=== PATIENT | female | born 1990 | race Two or more races ===

== ENCOUNTER 2023-09-16 07:25 | Outpatient (OUT) | payer OTHER, SELFPAY ==
[2023-09-16 07:59] LABS: Basophils Percent Auto 0.5 % (0.2-2.0); Eosinophils Percent Auto 0.3 % (0.9-7.0); Hematocrit 37.2 % (36.0-48.0); Hemoglobin 12.2 g/dL (12.0-16.0); Immature Granulocytes Abs Auto 0.04 10^3/uL (0.00-0.03); Immature Granulocytes Pct Auto 0.6 % (0.0-0.5); Lymphocytes Absolute Auto 1.9 10^3/uL (1.2-3.8); Lymphocytes Percent Auto 28.1 % (20.5-60.0); Mean Corpuscular HGB Conc 32.8 g/dL (29.9-35.2); Mean Corpuscular Hemoglobin 28.9 pg (26.7-34.0); Mean Corpuscular Volume 88.2 fL (81.0-99.0); Mean Platelet Volume 8.9 fL (9.5-13.5); Monocytes Absolute Auto 0.5 10^3/uL (0.3-0.8); Monocytes Percent Auto 7.7 % (1.7-12.0); Neutrophils Absolute Auto 4.2 10^3/uL (1.4-6.5); Neutrophils Percent Auto 62.8 % (43.0-75.0); Platelet Count 308 10^3/uL (150-450); Red Blood Count 4.22 10^6/uL (4.20-5.40); Red Cell Distribution Width 13.1 % (11.0-15.0); White Blood Count 6.6 10^3/uL (4.0-11.0)
[2023-09-16 08:12] LABS: Estimated Average Glucose 111 mg/dL; Glycohemoglobin A1C 5.5 % (4.5-6.2)
[2023-09-16 08:57] LABS: Alanine Aminotransferase 49 U/L (14-59); Albumin Globulin Ratio 0.9; Albumin Level 3.5 g/dL (3.4-5.0); Alkaline Phosphatase 70 U/L (46-116); Aspartate Amino Transferase 24 U/L (15-37); BUN Creatinine Ratio 15.9; Bilirubin Total 0.3 mg/dL (0.2-1.0); Calcium 9.1 mg/dL (8.5-10.1); Carbon Dioxide 25.9 mmol/L (21.0-32.0); Chloride 106 mmol/L (98-107); Chol HDL Ratio 3.9; Cholesterol 171 mg/dL (<=200); Estimated GFR (African America >60 (>=60); Estimated GFR (Non-African Ame >60 (>=60); Free T3 2.59 pg/mL (2.18-3.98); Globulin 3.7 g/dL; Glucose 95 mg/dL (74-106); HDL Cholesterol 44 mg/dL (40-60); LDL Cholesterol Calculated 114.2 mg/dL; Potassium 3.9 mmol/L (3.5-5.1); Sodium 141 mmol/L (136-145); Total Protein 7.2 g/dL (6.4-8.2); Triglycerides 64 mg/dL (<=150); VLDL CHOLESTEROL 12.8 mg/dL
[2023-09-17 12:10] LABS: Insulin 20.6 uIU/mL (2.6-24.9)
== END 2023-09-16 07:26 | disposition home or self-care (01) ==
LOC: LAB 07:27
PROVIDERS: PCP Family Medicine; Visit Provider Family Medicine
DX: Z00.00 Encounter for general adult medical examination without abnormal findings (principal); E78.5 Hyperlipidemia, unspecified; R73.09 Other abnormal glucose; D64.9 Anemia, unspecified
CPT/HCPCS: 36415; 80053; 80061; 83036; 83525; 83540; 84436; 84443; 84481; 85025

== ENCOUNTER 2024-03-09 16:14 | Outpatient (OUT) | payer OTHER, SELFPAY | END 2024-03-09 16:15 | disposition home or self-care (01) | LOC: MN 16:15 | PROVIDERS: PCP Family Medicine | DX: Z71.3 Dietary counseling and surveillance (principal); E66.9 Obesity, unspecified | CPT/HCPCS: 97802 ==

== ENCOUNTER 2024-03-21 08:11 | Outpatient (OUT) | payer OTHER, SELFPAY ==
--- NOTE | 2024-03-21 | PCN_ITS ---
CARDIAC STRESS TEST Requesting Physician: Bryan Zamorano M.D. Procedure Date: 03/21/2024 TREADMILL STRESS TEST INDICATIONS: Chest pain and left arm tingling. The test was explained to the patient and she is agreeable to proceed. Resting heart rate 58 beats per minute. Resting blood pressure 118/64. Peak heart rate 169 beats per minute, representing 89% of age predicted maximum heart rate. Max blood pressure 128/66 mm/Hg. The patient walked on treadmill according to standard Billy protocol for 8 minutes and 29 seconds, consistent with 10.10 METS. Exercise was terminated secondary to achievement of target heart rate. Patient experienced chest pain and dyspnea at peak exercise, which resolved in recovery phase. Resting EKG showed sinus rhythm, heart rate 72 beats per minute, normal EKG. EKG during exercise, at peak exercise and during recovery phase did not show significant T or ST changes and no arrhythmias. CONCLUSION: 1. Maximum stress test, achieving 89% of age predicted maximum heart rate. 2. Good exercise tolerance. 3. Appropriate heart rate and blood pressure response to exercise. 4. This stress test is negative for exercise induced ischemic EKG changes or arrhythmias; however, patient had chest pain and dyspnea at peak exercise that resolved in recovery. MTDD
--- OUTSIDE RECORDS SUMMARY | 2024-03-21 08:31 | XMS_ITS | CCD ---
Author Organization [facility] CliniSynj Care Team Providers Care Form Drafter Name Role Phone Nguyen Zamorano Primary Care Physician RO ., DR CEDILLO Primary Care Unavailable NILL ., DR FONTENOT Admitting Unavailable NILL ., DR FONTENOT Attending Unavailable NILL ., DR FONTENOT Admitting Unavailable HOY ., DR CEDILLO Primary Care Unavailable NILL ., DR FONTENOT Attending Unavailable NILL ., DR FONTENOT Consulting Unavailable LOLITA II, LALO Consulting Unavailable ZACHARY ARELLANO Consulting Unavailable HOY ., DR CEDILLO Primary Care Unavailable NILL ., DR FONTENOT Admitting Unavailable NILL ., DR FONTENOT Attending Unavailable NILL ., DR FONTENOT Consulting Unavailable RHONA HONG Consulting Unavailable LOLITA II, LALO Consulting Unavailable HOY ., DR CEDILLO Consulting Unavailable HOY ., DR CEDILLO Primary Care Unavailable HOY ., DR NGUYEN Fergusonitting Unavailable HOY ., DR CEDILLO Attending Unavailable RASTEGAR, SCOTTY Consulting Unavailable NILL ., DR FONTENOT Admitting Unavailable ZIEBER, DR VERONICA Mackey Consulting Unavailable HOY ., DR CEDILLO Primary Care Unavailable NILL ., DR FONTENOT Attending Unavailable NILL ., DR FONTENOT Consulting Unavailable NILL ., DR FONTENOT Admitting Unavailable HOY ., DR CEDILLO Primary Care Unavailable NILL ., DR FONTENOT Attending Unavailable NILL ., DR FONTENOT Consulting Unavailable HAY ., DR HENNING Attending Unavailable GRECHNY .TIMOTHY Consulting Unavailabl e HAY ., DR HENNING Admitting Unavailable HOY ., DR CEDILLO Primary Care Unavailable HAY ., DR HENNING Consulting Unavailable LIZBETH CARRILLO Consulting Unavailable NILLPo Attending Unavailable NILL, Po R Attending Unavailable NILL, Po R Attending Unavailable NILL, Po R Attending Unavailable NILL, Po R Attending Unavailable NATANDREA MCNAIR Attending Unavailable Allergies Allergy Classification Reported Allergen(s) Allergy Type Date of Onset Reaction(s) Facility (1 source) No Known Medication Allergies; Translations: [No Known Medication Allergies] Propensity to adverse reactions (disorder) [facility] Repository Medications Current Medications Medication Drug Class(es) Dates Sig (Normalized) Sig (Original) esomeprazole 40 mg delayed release oral capsule (2 sources) Proton Pump Inhibitor Start: 10-08-2022 take 1 capsule by mouth once daily Nexium 40 mg Cap-EC 40 mg = 1 cap(s), Oral, Daily, # 90 cap(s), Refills(s) 1, Pharmacy: [facility]/pharmacy #[id number], 157.4, cm, 09/26/22 10:43:00 EDT, Height/Length Dosing, 91.7, kg, 09/26/22 10:43:00 EDT, Weight Dosing Start Date: 10/08/22 Status: Ordered hyoscyamine sulfate 0.125 mg disintegrating oral tablet (3 sources) Start: 09-26-2022 take 1 tablet by mouth four times daily hyoscyamine 0.125 mg oral tablet, disintegrating 0.125 mg = 1 tab(s), Oral, QID, Refills(s) 0 Start Date: 09/26/22 Status: Ordered nabumetone 500 mg oral tablet (3 sources) Nonsteroidal Anti-inflammatory Drug Start: 09-26-2022 take 2 tablets by mouth once daily nabumetone 500 mg Tab 1,000 mg = 2 tab(s), Oral, Daily, Refills(s) 0 Start Date: 09/26/22 Status: Ordered sucralfate 100 mg/ml oral suspension (2 sources) Aluminum Complex Start: 10-08-2022 Carafate 1 g/10 mL Susp-Oral 1 gm = 10 mL, Oral, QIDACHS, Refills(s) 0 Start Date: 10/08/22 Status: Ordered Problems Problem Classification Problem Date Documented Date Episodic/Chronic Abdominal hernia (3 sources) Diaphragmatic hernia; Translations: [Diaphragmatic hernia without obstruction or gangrene] Onset: 10-07-2022 Episodic Abdominal pain (20 sources) Right upper quadrant pain; Translations: [Right upper quadrant pain] Onset: 09-08-2022 Episodic Allergic reactions (3 sources) Eczema 09-22-2022 Episodic Biliary tract disease (12 sources) Biliary calculus; Translations: [Cholelithiasis without obstruction] Onset: 09-11-2022 09-22-2022 Episodic Esophageal disorders (3 sources) Gastroesophageal reflux disease with hiatal hernia; Translations: [Gastro-esophageal reflux disease without esophagitis] Onset: 10-07-2022 10-08-2022 Chronic Gastritis and duodenitis (1 source) Unspecified chronic gastritis without bleeding; Translations: [UNS CHRONIC GASTRITIS W/O BLEEDING] Onset: 10-07-2022 Chronic Gastritis and duodenitis (3 sources) Gastritis; Translations: [Other gastritis without bleeding] Onset: 10-08-2022 Episodic Nausea and vomiting (5 sources) Nausea and vomiting; Translations: [Nausea with vomiting, unspecified] Onset: 09-26-2022 Episodic Other nutritional; endocrine; and metabolic disorders (3 sources) Body mass index 30+ - obesity 09-26-2022 Chronic Ovarian cyst (3 sources) Cyst of ovary 09-22-2022 Episodic Results Test Name Value Interpretation Reference Range Facility General Surgery Office/Clini c Noteon 12-01-2022 General Surgery Office/Clinic Note Chief Complaint post operative follow up HPI Staff 14 day post operative follow up post lap cholecystectomy. Denies pain, no use of pain medication. Denies bleeding or drainage. History of Present Illness 2 weeks s/p LS cholecystectomy; doing well, denies pain, no N/V, normal bms, no drainage from incisions; pathology with chronic cholecystitis, numerous small stones in gallbladder. Review of Systems ROS - Provider Constitutional: no fever, no sweats, no weight loss. Eyes: no glasses, no blurred vision, no visual loss. ENMT: no dentures, no hoarseness, no swallowing difficulties, no hearing loss, no ear infection(s), no nose bleeds. Cardiovascular: normal blood pressure, no chest pain, regular heartbeat, no heart murmur. Respiratory: no shortness of breath, no cough, no asthma, no wheezing. Gastrointestinal: no nausea, no vomiting, no diarrhea, no constipation, no blood in stool, no change in bowel habits, no abdominal pain, no hepatitis. Genitourinary: no kidney stones, no urine infection, no dysuria. Musculoskeletal: no pain, no weakness. Skin: no changing moles, no rash, no skin lumps. Neurologic: no seizures, no epilepsy, no headache. Psychiatric: no emotional or psychiatric problem. Heme/Lymph: no bleeding problems, no anemia, no blood clots, no transfusions. Allergy/Immunologic: no swollen lymph nodes/glands, no IV drug abuse. Other: Additional ROS info: Except as noted in the above Review of Systems and in the History of Present Illness, all other systems have been reviewed and are negative or noncontributory. Physical Exam abd: soft, nontender, nondistended, incisions healing well, no erythema or drainage, minimal resolving ecchymosis infraumbilical. Assessment/Plan 1. Chronic cholecystitis with calculus (K80.10: Calculus of gallbladder with chronic cholecystitis without obstruction) doing well, continue no lifting > 10 lbs for 2 weeks, then resume regular activities; call with problems/questions. Follow-up With When Contact Information NIKOLAI HENRY, KASIA Hill Only if needed [address] [place] [address]- Additional Instructions: Problem List/Past Medical History Ongoing Bile reflux gastritis BMI 37.0-37.9, adult Cholelithiasis Chronic cholecystitis with calculus Eczema Hiatal hernia with GERD Left ovarian cyst Nausea and vomiting Right sided abdominal pain Rt flank pain Symptomatic cholelithiasis Historical No qualifying data Procedure/Surgical History Laparoscopic cholecystectomy (10/29/2022), EGD - Esophagogastroduodenoscopy (10/01/2022). Medications Carafate 1 g/10 mL Susp-Oral, 1 gm= 10 mL, Oral, QIDACHS hyoscyamine 0.125 mg oral tablet, disintegrating, 0.125 mg= 1 tab(s), Oral, QID nabumetone 500 mg Tab, 1000 mg= 2 tab(s), Oral, Daily Nexium 40 mg Cap-EC, 40 mg= 1 cap(s), Oral, Daily, 1 refills Allergies No Known Allergies No Known Medication Allergies Social History Alcohol Current, Beer, Wine, Liquor, 1-2 times per month, 09/26/2022 Substance Abuse - Denies Substance Abuse, 09/26/2022 Tobacco Never (less than 100 in lifetime) Tobacco Use:. Never Smokeless Tobacco Use:., 09/26/2022 Family History Family history is negative Immunizations Vaccine Date Status Comments influenza virus vaccine, inactivated - Not Given Patient Refuses SARS-CoV-2 (COVID-19) mRNA BNT-162b2 vax 08/03/2020 Recorded SARS-CoV-2 (COVID-19) mRNA BNT-162b2 vax 07/13/2020 Recorded Normal [facility] Comment on above: Result Comment: Electronically Signed By : NIKOLAI HENRY, Po Mackey\.br\Date and Time Signed: 12/01/22 13:04 EDT Ambulatory Visit Summaryon 0 11-12-2022 Ambulatory Visit Summary FRANKLIN MOROCHO :1990 Visit Date:11/12/2022 Ambulatory Visit Instructions Your Care Team Attending Physician - NIKOLAI HENRY, Po Mackey Primary Care Physician - Nguyen Zamorano MD This Is Your Medications List esomeprazole (Nexium 40 mg Cap-EC) hyoscyamine (hyoscyamine 0.125 mg oral tablet, disintegrating) nabumetone (nabumetone 500 mg Tab) sucralfate (Carafate 1 g/10 mL Susp-Oral) Procedures Performed Laparoscopic cholecystectomy (10/29/2022), EGD - Esophagogastroduodenoscopy (10/01/2022). Medications What How Much When Why Instructions Unchanged esomeprazole (Nexium 40 mg Cap-EC) 1 Capsules By Mouth Every day Symptomatic cholelithiasis Hiatal hernia with GERD Bile reflux gastritis Unchanged hyoscyamine (hyoscyamine 0.125 mg oral tablet, disintegrating) 1 Tablets By Mouth 4 times a day Unchanged nabumetone (nabumetone 500 mg Tab) 2 Tablets By Mouth Every day Unchanged sucralfate (Carafate 1 g/ 10 mL Susp-Oral) 10 Milliliter By Mouth Four times a day (before meals and at bedtime) Allergies No Known Allergies No Known Medication Allergies Problems Ongoing - Any problem that you are currently receiving treatment for. Bile reflux gastritis BMI 37.0-37.9, adult Cholelithiasis Eczema Hiatal hernia with GERD Left ovarian cyst Nausea and vomiting Right sided abdominal pain Rt flank pain Symptomatic cholelithiasis Normal [facility] Pathology Noteon 11-09-2022 Pathology Note [id number]:127 Normal [facility] Operative Reporton Operative Report [id number]:127 Normal [facility] PREG HCG QUALon 10-29-2022 , QUAL Negative Normal NEGATIVE [facility] Comment on above: Performed By: #### PREG #### [facility] [address] [address] [address] Krys Diaz Consent for Procedure/Surger yon 10-09-2022 Consent for Procedure/Surger y [id number]#[id number]:127 Normal [facility] Pre-Certification Formon Pre-Certificatio n Form [id number]#[id number]:127 [facility] Ambulatory Visit Summaryon 0 10-08-2022 Ambulatory Visit Summary BAILEEMIKHAILDANYELL Simmons :1990 Visit Date:10/08/2022 Ambulatory Visit Instructions Your Care Team Attending Physician - NIKOLAI HENRY, oP Mackey Primary Care Physician - Nguyen Zamorano MD This Is Your Medications List hyoscyamine (hyoscyamine 0.125 mg oral tablet, disintegrating) nabumetone (nabumetone 500 mg Tab) sucralfate (Carafate 1 g/10 mL Susp-Oral) Procedures Performed EGD - Esophagogastroduodenoscopy (10/01/2022). Medications What How Much When Instructions Unchanged hyoscyamine (hyoscyamine 0.125 mg oral tablet, disintegrating) 1 Tablets By Mouth 4 times a day Unchanged nabumetone (nabumetone 500 mg Tab) 2 Tablets By Mouth Every day Unchanged sucralfate (Carafate 1 g/ 10 mL Susp-Oral) 10 Milliliter By Mouth Four times a day (before meals and at bedtime) Allergies No Known Allergies No Known Medication Allergies Problems Ongoing - Any problem that you are currently receiving treatment for. BMI 37.0-37.9, adult Cholelithiasis Eczema Left ovarian cyst Nausea and vomiting Right sided abdominal pain Rt flank pain Normal [facility] General Surgery Office/Clini c Noteon 10-08-2022 General Surgery Office/Clinic Note Chief Complaint EGD follow up HPI Staff 7 day post operative follow up post EGD with antral biopsy x 2. Taking Carafate as prescribed. History of Present Illness s/p EGD with antral bx; pathology with chronic gastritis, negative for H pylori; extensive bile reflux and small hiatal hernia; patient on Nexium 40 mg daily and carafate q ac and hs; mild improvement; still with RUQ pain and frequent nausea; MRCP with gallbladder filled with small stones, no distension or ductal dilation, no inflammation. patient without h/o jaundice or pancreatitis. Review of Systems ROS - Provider Constitutional: no fever, no sweats, no weight loss. Eyes: no glasses, no blurred vision, no visual loss. ENMT: no dentures, no hoarseness, no swallowing difficulties, no hearing loss, no ear infection(s), no nose bleeds. Cardiovascular: normal blood pressure, no chest pain, regular heartbeat, no heart murmur. Respiratory: no shortness of breath, no cough, no asthma, no wheezing. Gastrointestinal: yes nausea, no vomiting, no diarrhea, no constipation, no blood in stool, no change in bowel habits, yes abdominal pain, no hepatitis. Genitourinary: no kidney stones, no urine infection, no dysuria. Musculoskeletal: no pain, no weakness. Skin: no changing moles, no rash, no skin lumps. Neurologic: no seizures, no epilepsy, no headache. Psychiatric: no emotional or psychiatric problem. Heme/Lymph: no bleeding problems, no anemia, no blood clots, no transfusions. Allergy/Immunologic: no swollen lymph nodes/glands, no IV drug abuse. Other: Additional ROS info: Except as noted in the above Review of Systems and in the History of Present Illness, all other systems have been reviewed and are negative or noncontributory. Physical Exam HEENT: normal conjunctiva, sclera clear, no scleral icterus, EOM intact, PERRLA, oral mucosa moist without lesions. Neck: trachea midline, no mass, symmetric, no thyromegaly or nodules, no adenopathy Respiratory: lungs CTA, respirations non labored. Cardiovascular: regular rate and rhythm, no murmur, no pedal edema or varicosities. Gastrointestinal: obese, soft, non distended, mild tenderness, epigastrium and RUQ no masses, no palpable hernias, diastasis recti no, no hepatosplenomegaly; normal bs Lymphatic: no cervical adenopathy, no supraclavicular adenopathy Musculoskeletal: normal gait, digits and nails without infection, nodes, cyanosis, clubbing. Skin: no rashes, no lesions, no ulcers, no subcutaneous nodules, induration. Psychiatric/Neuro: oriented to time, place, person, judgement normal, affect appropriate for age, insight intact, no focal deficits. Tests: labs reviewed, x-rays reviewed, review of old records completed, Discussed surgical options, risks, and possible complications with patient. Assessment/Plan 1. Symptomatic cholelithiasis (K80.20: Calculus of gallbladder without cholecystitis without obstruction) plan LS cholecystectomy with possible intraoperative cholangiogram, informed consent obtained. Unasyn 3 gms IV prior to OR SCDs Ordered: esomeprazole, 40 mg = 1 cap(s), Oral, Daily, # 90 cap(s), Refills(s) 1, [id number] 157.4, cm, 09/26/22 10:43:00 EDT, Height/Length Dosing, 91.7, kg, 09/26/22 10:43:00 EDT, Weight Dosing E&M of Est. Patient Moderate 30-39 Min 98919 2. Hiatal hernia with GERD, (K44.9: Diaphragmatic hernia without obstruction or gangrene)Diaphragmatic hernia without obstruction or gangrene continue Nexium and Carafate; low fat diet Ordered: esomeprazole, 40 mg = 1 cap(s), Oral, Daily, # 90 cap(s), Refills(s) 1, [id number], 157.4, cm, 09/26/22 10:43:00 EDT, Height/Length Dosing, 91.7, kg, 09/26/22 10:43:00 EDT, Weight Dosing E&M of Est. Patient Moderate 30-39 Min 43687 3. Bile reflux gastritis (K29.60: Other gastritis without bleeding) see # 2 Ordered: esomeprazole, 40 mg = 1 cap(s), Oral, Daily, # 90 cap(s), Refills(s) 1, [id number], 157.4, cm, 09/26/22 10:43:00 EDT, Height/Length Dosing, 91.7, kg, 09/26/22 10:43:00 EDT, Weight Dosing E&M of Est. Patient Moderate 30-39 Min 45401 Follow-up No qualifying data available Problem List/Past Medical History Ongoing Bile reflux gastritis BMI 37.0-37.9, adult Cholelithiasis Eczema Hiatal hernia with GERD Left ovarian cyst Nausea and vomiting Right sided abdominal pain Rt flank pain Symptomatic cholelithiasis Historical No qualifying data Procedure/Surgical History EGD - Esophagogastroduodenoscopy (10/01/2022). Medications Carafate 1 g/10 mL Susp-Oral, 1 gm= 10 mL, Oral, QIDACHS hyoscyamine 0.125 mg oral tablet, disintegrating, 0.125 mg= 1 tab(s), Oral, QID nabumetone 500 mg Tab, 1000 mg= 2 tab(s), Oral, Daily Nexium 40 mg Cap-EC, 40 mg= 1 cap(s), Oral, Daily, 1 refills Allergies No Known Allergies No Known Medication Allergies Social History Alcohol Current, Beer, Wine, Liquor, 1-2 times per month, 09/26/2022 Substance Ab (more content not included)... Normal [facility] Comment on above: Result Comment: Electronically Signed By : NIKOLAI HENRY, Po Moore\Date and Time Signed: 10/08/22 15:53 EDT RAD - MRI Reporton RAD - MRI Report [id number]:127 Normal [facility] Pathology Noteon 10-07-2022 Pathology Note [id number]#[id number]:127 Normal [facility] MRI ABDOMEN WO CONon 023 MRI ABDOMEN WO CON EXAMINATION: MRI ABDOMEN WO CON HISTORY: Right upper quadrant pain COMPARISON: No relevant comparison available. TECHNIQUE: MRCP was performed without contrast for evaluation of the common bile duct and pancreatic duct. FINDINGS: GALLBLADDER: Filled with small stones. No gallbladder wall thickening, free fluid, or appreciable surrounding inflammatory changes. BILE DUCTS: No stricture, abnormal dilation, or filling defect. Normal common bile duct. PANCREAS: No stricture, abnormal dilation, fluid collection, mass, or accessory duct. OTHER: Unremarkable liver, spleen, kidneys, and visible bowel/mesentery. IMPRESSION: 1. Cholelithiasis: Gallbladder is filled with stones. No acute findings. Electronically authenticated by: VERONICA VELARDE Date: 2022-10-06 08:51 Normal [facility] Operative Reporton Operative Report [id number]:127 Normal [facility] PREG HCG QUALon 10-01-2022 , QUAL Negative Normal NEGATIVE [facility] Comment on above: Performed By: #### PREG #### [facility] [address] [place] [address] Dr. Krys Diaz Lab Reportson 09-30-2022 Lab Reports [id number]:127 Normal [facility] CBC AUTO DIFFon 09-29-2022 BASO # 0.0 103/ul Normal 0.0-0.1 [facility] Comment on above: Performed By: #### CBC #### [facility] [address] [place] [address] Dr. Krys Diaz Basophils/100 WBC (Bld) 0.5 % Normal 0.2-2.0 [facility] Comment on above: Performed By: #### CBC #### [facility] [address] [place] [address] Dr. Krys Diaz EO # 0.0 103/ul Normal 0.0-0.7 [facility] Comment on above: Performed By: #### CBC #### [facility] [address] [place] [address] Dr. Krys Diaz Eosinophils/100 WBC (Bld) 0.6 % Critically low 0.9-7.0 [facility] Comment on above: Performed By: #### CBC #### [facility] [address] [place] [address] Dr. Krys Diaz Erythrocyte distribution width (RBC) [Ratio] 12.8 % Normal 11.0-15.0 [facility] Comment on above: Performed By: #### CBC #### [facility] [address] [place] [address] Dr. Krys Diaz Hematocrit (Bld) [Volume fraction] 40.0 % Normal 36.0-48.0 [facility] Comment on above: Performed By: #### CBC #### [facility] [address] [place] [address] Dr. Krys Diaz Hemoglobin (Bld) [Mass/Vol] 13.4 g/dL Normal 12.0-16.0 [facility] Comment on above: Performed By: #### CBC #### [facility] [address] [place] [address] Dr. Krys Diaz IG # 0.03 10e3/ul Normal 0.00-0.03 [facility] Comment on above: Performed By: #### CBC #### [facility] [address] [place] [address] Dr. Krys Diaz IG % 0.5 % Normal 0.0-0.5 [facility] Comment on above: Performed By: #### CBC #### [facility] [address] [place] [address] Dr. Krys Diaz LYMPH # 1.7 103/ul Normal 1.2-3.8 [facility] Comment on above: Performed By: #### CBC #### [facility] [address] [place] [address] Dr. Krys Diaz Lymphocytes/100 WBC (Bld) 26.7 % Normal 20.5-60.0 [facility] Comment on above: Performed By: #### CBC #### [facility] [address] [place] [address] Dr. Krys Diaz MANUAL DIFF REQ NO Normal [facility] Comment on above: Performed By: #### CBC #### [facility] [address] [place] [address] Dr. Krys Diaz MCH (RBC) [Entitic mass] 30.8 pg Normal 26.7-34.0 [facility] Comment on above: Performed By: #### CBC #### [facility] [address] [place] [address] Dr. Krys Diaz MCHC (RBC) [Mass/Vol] 33.5 g/dL Normal 29.9-35.2 [facility] Comment on above: Performed By: #### CBC #### [facility] [address] [place] [address] Dr. Krys Diaz MCV (RBC) [Entitic vol] 92.0 fL Normal 81.0-99.0 [facility] Comment on above: Performed By: #### CBC #### [facility] [address] [place] [address] Dr. Krys Diaz MONO # 0.5 103/ul Normal 0.3-0.8 [facility] Comment on above: Performed By: #### CBC #### [facility] [address] [place] [address] Dr. Krys Diaz Monocytes/100 WBC (Bld) 7.9 % Normal 1.7-12.0 [facility] Comment on above: Performed By: #### CBC #### [facility] [address] [place] [address] Dr. Krys Diaz NEUT # 4.1 103/ul Normal 1.4-6.5 [facility] Comment on above: Performed By: #### CBC #### [facility] [address] [place] [address] Dr. Krys Diaz Neutrophils/100 WBC (Bld) 63.8 % Normal 43.0-75.0 [facility] Comment on above: Performed By: #### CBC #### [facility] [address] [place] [address] Dr. Krys Diaz Platelet mean volume (Bld) [Entitic vol] 10.1 fL Normal 9.5-13.5 [facility] Comment on above: Performed By: #### CBC #### [facility] [address] [place] [address] Dr. Krys Diaz PLT 222 103/ul Normal 150-450 [facility] Comment on above: Performed By: #### CBC #### [facility] [address] [place] [address] Dr. Krys Diaz RBC 4.35 106/ul Normal 4.20-5.40 [facility] Comment on above: Performed By: #### CBC #### [facility] [address] [address] [address] Krys Diaz WBC 6.3 103/ul Normal 4.0-11.0 [facility] Comment on above: Performed By: #### CBC #### [facility] [address] [address] [address] Krys Diaz LIPASEon 09-29-2022 Lipase [Catalytic activity/Vol] 85.0 U/L Normal 73.0-393.0 [facility] Comment on above: Performed By: #### BMP, LIVER, LIPA #### [facility] [id number] [address]Dr. Krys Diaz LIVER PROFILEon 09-29-2022 Albumin [Mass/Vol] 3.6 g/dL Normal 3.4-5.0 [facility] Comment on above: Performed By: #### BMP, LIVER, LIPA #### [facility] [address] [place] [address]DrMinerva Diaz Albumin/Globulin [Mass ratio] 0.9 {ratio} Normal [facility] Comment on above: Performed By: #### BMP, LIVER, LIPA #### [facility] [address] [place] [address]DrMinerva Diaz ALP [Catalytic activity/Vol] 63 U/L Normal 46-116 [facility] Comment on above: Performed By: #### BMP, LIVER, LIPA #### [facility] [address] [place] [address]Dr. Krys Diaz ALT [Catalytic activity/Vol] 65 U/L Critically high 14-59 [facility] Comment on above: Performed By: #### BMP, LIVER, LIPA #### [facility] [address] [place] [address]Dr. Krys Diaz AST [Catalytic activity/Vol] 35 U/L Normal 15-37 [facility] Comment on above: Performed By: #### BMP, LIVER, LIPA #### [facility] [address] [place] [address]Dr. Krys Diaz BILI, CONJUGATED 0.1 mg/dL Normal 0.0-0.2 [facility] Comment on above: Performed By: #### BMP, LIVER, LIPA #### [facility] [address] [place] [address]DrMinerva Diaz Bilirubin [Mass/Vol] 0.5 mg/dL Normal 0.2-1.0 [facility] Comment on above: Performed By: #### BMP, LIVER, LIPA #### [facility] [address] [place] [address]Dr. Krys Diaz Globulin (S) [Mass/Vol] 3.9 g/dL Normal [facility] Comment on above: Performed By: #### BMP, LIVER, LIPA #### [facility] [address] [place] [address]Dr. Krys Diaz Protein [Mass/Vol] 7.5 g/dL Normal 6.4-8.2 [facility] Comment on above: Performed By: #### BMP, LIVER, LIPA #### [facility] [address] [place] [address]DrMinerva Diaz PROF CHEM 8 (BAS METB)on Anion gap [Moles/Vol] 9.5 mmol/L Normal [facility] Comment on above: Performed By: #### BMP, LIVER, LIPA #### [facility] [address] [address] [address] Krys Diaz Calcium [Mass/Vol] 9.0 mg/dL Normal 8.5-10.1 [facility] Comment on above: Performed By: #### BMP, LIVER, LIPA #### [facility] [address] [address] [address] Krys Diaz Chloride [Moles/Vol] 106 mmol/L Normal 98-107 [facility] Comment on above: Performed By: #### BMP, LIVER, LIPA #### [facility] [address] [address] [address] Krys Diaz CO2 [Moles/Vol] 27.3 mmol/L Normal 21.0-32.0 [facility] Comment on above: Performed By: #### BMP, LIVER, LIPA #### [facility] [address] [address] [address] Krys Diaz Creatinine [Mass/Vol] 0.80 mg/dL Normal 0.55-1.02 [facility] Comment on above: Performed By: #### BMP, LIVER, LIPA #### [facility] [address] [address] [address] Krys Diaz EGFR-AF AUSTRIAN >60 Normal >=60 [facility] Comment on above: Performed By: #### BMP, LIVER, LIPA #### [facility] [address] [address] [address] Krys Diaz EGFR-NON AF AUSTRIAN >60 Normal >=60 [facility] Comment on above: Performed By: #### BMP, LIVER, LIPA #### [facility] [address] [address] [address] Krys Diaz Glucose [Mass/Vol] 100 mg/dL Normal 74-106 [facility] Comment on above: Performed By: #### BMP, LIVER, LIPA #### [facility] [address] [address] [address] Krys Diaz Potassium [Moles/Vol] 3.8 mmol/L Normal 3.5-5.1 [facility] Comment on above: Performed By: #### BMP, LIVER, LIPA #### [facility] [address] [address] [address] Krys Diaz Sodium [Moles/Vol] 139 mmol/L Normal 136-145 [facility] Comment on above: Performed By: #### BMP, LIVER, LIPA #### [facility] [address] [address] [address] Krys Diaz Urea nitrogen [Mass/Vol] 8.0 mg/dL Normal 7.0-18.0 [facility] Comment on above: Performed By: #### BMP, LIVER, LIPA #### [facility] [address] [address] [address] Krys Diaz Urea nitrogen/Creatin ine [Mass ratio] 10.0 mg/mg Normal [facility] Comment on above: Performed By: #### BMP, LIVER, LIPA #### [facility] [address] [address] [address] Krys Diaz Ambulatory Visit Summaryon 0 09-26-2022 Ambulatory Visit Summary FRANKLIN MOROCHO :1990 Visit Date:09/26/2022 Ambulatory Visit Instructions Your Care Team Attending Physician - NIKOLAI HENRY, Po Mackey Primary Care Physician - Nguyen Zamorano MD This Is Your Medications List Contact prescribing physician if questions or concerns hyoscyamine (hyoscyamine 0.125 mg oral tablet, disintegrating) nabumetone (nabumetone 500 mg Tab) Procedures Performed None. Discharge Vitals Heart Rate (Peripheral) 80 Respiratory Rate 16 Blood Pressure 112/76 Height 157.4 cm Height 62 in Weight 91.7 kg Weight 201.74 lb BMI 37.01 Medications What How Much When Instructions Unchanged hyoscyamine (hyoscyamine 0.125 mg oral tablet, disintegrating) 1 Tablets By Mouth 4 times a day Contact prescribing physician if questions or concerns Unchanged nabumetone (nabumetone 500 mg Tab) 2 Tablets By Mouth Every day Contact prescribing physician if questions or concerns Medications and Immunizations Administered Not Given influenza virus vaccine, inactivated, Patient Refuses Allergies No Known Allergies No Known Medication Allergies Problems Ongoing - Any problem that you are currently receiving treatment for. BMI 37.0-37.9, adult Cholelithiasis Eczema Left ovarian cyst [facility] Consent for Procedure/Surger yon 09-26-2022 Consent for Procedure/Surger y [id number]#[id number]:127 [facility] Pre-Certification Formon Pre-Certificatio n Form [id number]#[id number]:127 [facility] ED Note-Physicianon 09-19-19 ED Note-Physician [id number]#[id number]:127 [facility] Physician Referralon 023 Physician Referral [id number]:127 Normal [facility] US SINGLE QUAD RT UPPERon US SINGLE QUAD RT UPPER EXAM: US SINGLE QUAD RT UPPER HISTORY: Cholelithiasis without obstruction COMPARISON: CT of the abdomen from 09/08/2022 TECHNIQUE: Right upper quadrant abdominal ultrasound including grayscale and Doppler imaging. FINDINGS: Right/left pleural space: No effusion. Liver: Normal echogenicity and echotexture. Gallbladder: There is diffuse posterior acoustic shadowing. The gallbladder wall measures 0.9 cm. No pericholecystic fluid. Sonographic Paulson's sign is negative. Finding may represent cholelithiasis. Focal tenderness: No right upper quadrant tenderness. Intrahepatic biliary ducts: No intrahepatic biliary duct dilatation. Extra hepatic biliary duct measures 4 mm. Pancreas: No abnormality demonstrated. Right kidney: Normal cortical echogenicity. No hydronephrosis. The right kidney measures 9.5 cm in length. Aorta: No aneurysm. Peritoneal space: No ascites visualized within the visualized upper abdomen. Additional findings: None. IMPRESSION: Cholelithiasis without evidence of acute cholecystitis. Electronically authenticated by: SCOTTY COLINDRES Date: 2022-09-14 15:35 Normal [facility] CT ABD/PELV W CONon 09-10-[address] ABD/PELV W CON EXAMINATION: CT ABD/PELV W CON HISTORY: Right upper quadrant pain COMPARISON: None. TECHNIQUE: Axial CT images through the abdomen and pelvis were obtained after the intravenous administration of 100 mL Omnipaque 300 contrast. Coronal and sagittal reformats were obtained. Dose reduction techniques were achieved by using automated exposure control and/or adjustment of mA and/or kV according to patient size and/or use of iterative reconstruction technique. FINDINGS: The visualized portions of the lung bases are clear. Abdomen: The liver and spleen enhance homogeneously without focal lesion. There is no intra or extrahepatic biliary duct dilatation. There is minimal pericholecystic inflammation. The pancreas, adrenal glands, kidneys, and bowel loops, including the appendix, are unremarkable. There is no mesenteric or retroperitoneal lymphadenopathy. Pelvis: The bladder and rectum are unremarkable. There is no iliac or inguinal lymphadenopathy. The uterus is present. The ovaries appear within normal limits by CT. Bone windows show no aggressive osseous lesions. IMPRESSION: 1. Minimal pericholecystic inflammation. Consider evaluation of the right upper quadrant ultrasound examination as clinically indicated. 2. Normal appendix. Electronically authenticated by: Amber CARRILLO Date: 2022-09-08 23:07 Normal [facility] CBC AUTO DIFFon 09-08-2022 BASO # 0.0 103/ul Normal 0.0-0.1 [facility] Comment on above: Performed By: #### CBC #### [facility] [address] [address] [address] Krys Diaz Basophils/100 WBC (Bld) 0.3 % Normal 0.2-2.0 [facility] Comment on above: Performed By: #### CBC #### [facility] [address] [place] [address] Dr. Krys Diaz EO # 0.1 103/ul Normal 0.0-0.7 [facility] Comment on above: Performed By: #### CBC #### [facility] [address] [address] [address] Krys Diaz Eosinophils/100 WBC (Bld) 0.7 % Critically low 0.9-7.0 [facility] Comment on above: Performed By: #### CBC #### [facility] [address] [place] [address] Dr. Krys Diaz Erythrocyte distribution width (RBC) [Ratio] 12.8 % Normal 11.0-15.0 [facility] Comment on above: Performed By: #### CBC #### [facility] [address] [address] [address] Krys Diaz Hematocrit (Bld) [Volume fraction] 38.1 % Normal 36.0-48.0 [facility] Comment on above: Performed By: #### CBC #### [facility] [address] [address] [address] Krys Diaz Hemoglobin (Bld) [Mass/Vol] 12.9 g/dL Normal 12.0-16.0 [facility] Comment on above: Performed By: #### CBC #### [facility] [address] [address] [address] Krys Diaz IG # 0.01 10e3/ul Normal 0.00-0.03 [facility] Comment on above: Performed By: #### CBC #### [facility] [address] [address] [address] Krys Diaz IG % 0.1 % Normal 0.0-0.5 [facility] Comment on above: Performed By: #### CBC #### [facility] [address] [address] [address] Krys Diaz LYMPH # 2.4 103/ul Normal 1.2-3.8 [facility] Comment on above: Performed By: #### CBC #### [facility] [address] [place] [address] Dr. Krys Diaz Lymphocytes/100 WBC (Bld) 35.8 % Normal 20.5-60.0 [facility] Comment on above: Performed By: #### CBC #### [facility] [address] [place] [address] Dr. Krys Diaz MANUAL DIFF REQ NO Normal [facility] Comment on above: Performed By: #### CBC #### [facility] [address] [address] [address] Krys Diaz MCH (RBC) [Entitic mass] 30.0 pg Normal 26.7-34.0 [facility] Comment on above: Performed By: #### CBC #### [facility] [address] [place] [address] Dr. Krys Diaz MCHC (RBC) [Mass/Vol] 33.9 g/dL Normal 29.9-35.2 [facility] Comment on above: Performed By: #### CBC #### [facility] [address] [place] [address] Dr. Krys Diaz MCV (RBC) [Entitic vol] 88.6 fL Normal 81.0-99.0 [facility] Comment on above: Performed By: #### CBC #### [facility] [address] [place] [address] Dr. Krys Diaz MONO # 0.5 103/ul Normal 0.3-0.8 [facility] Comment on above: Performed By: #### CBC #### [facility] [address] [address] [address] Krys Diaz Monocytes/100 WBC (Bld) 7.0 % Normal 1.7-12.0 [facility] Comment on above: Performed By: #### CBC #### [facility] [address] [address] [address] Krys Diaz NEUT # 3.7 103/ul Normal 1.4-6.5 [facility] Comment on above: Performed By: #### CBC #### [facility] [address] [address] [address] Krys Diaz Neutrophils/100 WBC (Bld) 56.1 % Normal 43.0-75.0 [facility] Comment on above: Performed By: #### CBC #### [facility] [address] [place] [address] Dr. Krys Diaz Platelet mean volume (Bld) [Entitic vol] 8.9 fL Critically low 9.5-13.5 [facility] Comment on above: Performed By: #### CBC #### [facility] [address] [place] [address] Dr. Krys Diaz PLT 287 103/ul Normal 150-450 [facility] Comment on above: Performed By: #### CBC #### [facility] [address] [place] [address] Dr. Krys Diaz RBC 4.30 106/ul Normal 4.20-5.40 [facility] Comment on above: Performed By: #### CBC #### [facility] [address] [place] [address] Dr. Krys Diaz WBC 6.7 103/ul Normal 4.0-11.0 [facility] Comment on above: Performed By: #### CBC #### [facility] [address] [place] [address] Dr. Krys Diaz ER URINE PROFILEon 3 Bilirubin Ql (U) SMALL Abnormal NEGATIVE [facility] Comment on above: Performed By: #### JORGE SINCLAIR #### [facility] [address] [place] [address] Dr. Krys Diaz Clarity (U) CLEAR Normal CLEAR [facility] Comment on above: Performed By: #### YAHIR ERUR #### [facility] [address] [place] [address] Dr. Krys Diaz Color (U) YELLOW Normal YELLOW [facility] Comment on above: Performed By: #### YAHIR ERUR #### [facility] [address] [place] [address] Dr. Krys Diaz ERUAHD A micrscopic examina tion will be performed if indicated. Normal [facility] Comment on above: Performed By: #### YAHIR ERUR #### [facility] [address] [place] [address] Dr. Krys Diaz Glucose Ql (U) Negative Normal NEGATIVE [facility] Comment on above: Performed By: #### YAHIR ERUR #### [facility] [address] [place] [address] Dr. Krys Diaz Hemoglobin Ql (U) LARGE Abnormal NEGATIVE [facility] Comment on above: Performed By: #### YAHIR ERUR #### [facility] [address] [place] [address] Dr. Krys Diaz Ketones Ql (U) Negative Normal NEGATIVE [facility] Comment on above: Performed By: #### YAHIR ERUR #### [facility] [address] [place] [address] Dr. Krys Diaz LEUKOCYTES Negative Normal NEGATIVE [facility] Comment on above: Performed By: #### YAHIR ERUR #### [facility] [address] [place] [address] Dr. Krys Diaz Nitrite Ql (U) Negative Normal NEGATIVE [facility] Comment on above: Performed By: #### YAHIR ERUR #### [facility] [address] [place] [address] Dr. Krys Diaz pH (U) 5.5 [pH] Normal 5-9 [facility] Comment on above: Performed By: #### YAHIR, ERUR #### [facility] [address] [address] [address] Krys Diaz Protein (U) [Mass/Vol] 30 mg/dL Abnormal NEGATIVE/ TRACE [facility] Comment on above: Performed By: #### YAHIR, ERUR #### [facility] [address] [address] [address] Krys Diaz SPEC GRAVITY >=1.030 Abnormal 1.005-<=1.02 5 [facility] Comment on above: Performed By: #### YAHIR, ERUR #### [facility] [address] [address] [address] Krys Diaz UR MICRO IND INDICATED Normal [facility] Comment on above: Performed By: #### YAHIR, ERUR #### [facility] [address] [address] [address] Krys Diaz Urobilinogen Qn (U) 1.0 {Paramjit'U}/dL Normal 0.2 - 1.0 [facility] Comment on above: Performed By: #### YAHIR ERUR #### [facility] [address] [address] [address] Krys Diaz LIPASEon 09-08-2022 Lipase [Catalytic activity/Vol] 82.0 U/L Normal 73.0-393.0 [facility] Comment on above: Performed By: #### CMP, LIPA ####[facility] [address] [address]Dr. Krys Diaz PREG HCG QUALon 09-08-2022 , QUAL Negative Normal NEGATIVE [facility] Comment on above: Performed By: #### PREG ####[facility] [address] [address]Dr. Krys Diaz PROF 14(COMP METB)on 023 Albumin [Mass/Vol] 3.7 g/dL Normal 3.4-5.0 [facility] Comment on above: Performed By: #### CMP, LIPA ####[facility] [address] [address]Dr. Krys Diaz Albumin/Globulin [Mass ratio] 1.1 {ratio} Normal [facility] Comment on above: Performed By: #### CMP, LIPA ####[facility] [address] [address]Dr. Amyalejandro Joe ALP [Catalytic activity/Vol] 67 U/L Normal 46-116 [facility] Comment on above: Performed By: #### CMP, LIPA ####[facility] [address] [place] [address]Dr. Krys Diaz ALT [Catalytic activity/Vol] 38 U/L Normal 14-59 [facility] Comment on above: Performed By: #### CMP, LIPA ####[facility] [address] [place] [address]Dr. Krys Diaz Anion gap [Moles/Vol] 12.4 mmol/L Normal [facility] Comment on above: Performed By: #### CMP, LIPA ####[facility] [address] [place], [place] [address]Dr. Krys Diaz AST [Catalytic activity/Vol] 19 U/L Normal 15-37 [facility] Comment on above: Performed By: #### CMP, LIPA ####[facility] [address] [place], [place] [address]Dr. Krys Diaz Bilirubin [Mass/Vol] 0.4 mg/dL Normal 0.2-1.0 [facility] Comment on above: Performed By: #### CMP, LIPA ####[facility] [address] [address]Dr. Krys Diaz Calcium [Mass/Vol] 8.6 mg/dL Normal 8.5-10.1 [facility] Comment on above: Performed By: #### CMP, LIPA ####[facility] [address] [place] [address]Dr. Krys Diaz Chloride [Moles/Vol] 105 mmol/L Normal 98-107 [facility] Comment on above: Performed By: #### CMP, LIPA ####[facility] [address] [place], [place] [address]Dr. Krys Diaz CO2 [Moles/Vol] 25.9 mmol/L Normal 21.0-32.0 [facility] Comment on above: Performed By: #### CMP, LIPA ####[facility] [address] [address]Dr. Krys Diaz Creatinine [Mass/Vol] 0.86 mg/dL Normal 0.55-1.02 [facility] Comment on above: Performed By: #### CMP, LIPA ####[facility] [address] [address]Dr. Krys Diaz EGFR-AF AUSTRIAN >60 Normal >=60 [facility] Comment on above: Performed By: #### CMP, LIPA ####[facility] [address] [place] [address]Dr. Krys Diaz EGFR-NON AF AUSTRIAN >60 Normal >=60 [facility] Comment on above: Performed By: #### CMP, LIPA ####[facility] [address] [address]Dr. Krys Diaz Globulin (S) [Mass/Vol] 3.5 g/dL Normal [facility] Comment on above: Performed By: #### CMP, LIPA ####[facility] [address] [address]Dr. Krys Diaz Glucose [Mass/Vol] 102 mg/dL Normal 74-106 [facility] Comment on above: Performed By: #### CMP, LIPA ####[facility] [address] [place] [address]Dr. Krys Diaz Potassium [Moles/Vol] 3.3 mmol/L Critically low 3.5-5.1 [facility] Comment on above: Performed By: #### CMP, LIPA ####[facility] [address] [address]Dr. Krys Diaz Protein [Mass/Vol] 7.2 g/dL Normal 6.4-8.2 [facility] Comment on above: Performed By: #### CMP, LIPA ####[facility] [address] [place] [address]DrMinerva Diaz Sodium [Moles/Vol] 140 mmol/L Normal 136-145 [facility] Comment on above: Performed By: #### CMP, LIPA ####[facility] [address] [address]Dr. Krys Diaz Urea nitrogen [Mass/Vol] 6.0 mg/dL Critically low 7.0-18.0 [facility] Comment on above: Performed By: #### CMP, LIPA ####[facility] [address] [address]Dr. Krys Diaz Urea nitrogen/Creatin ine [Mass ratio] 7.0 mg/mg Normal [facility] Comment on above: Performed By: #### CMP, LIPA ####[facility] [address] [place] [address]DrMinerva Diaz URINE MICROSCOPIC ONLYon BACTERIA TRACE Abnormal NONE SEEN [facility] Comment on above: Performed By: #### YAHIR ERUR #### [facility] [address] [address] [address] Krys Diaz Bacteria identified Cx Nom (U) NOT INDICATED Normal [facility] Comment on above: Performed By: #### YAHIR, ERUR #### [facility] [address] [address] [address] Krys Diaz CAST NONE SEEN Normal NONE SEEN [facility] Comment on above: Performed By: #### YAHIR, ERUR #### [facility] [address] [address] [address] Krys Diaz Crystals LM Nom (Urine sed) NONE SEEN Normal NONE SEEN [facility] Comment on above: Performed By: #### YAHIR ERUR #### [facility] [address] [address] [address] Krys Diaz Epithelial cells LM Ql (Urine sed) MODERATE Abnormal NONE SEEN /RARE [facility] Comment on above: Performed By: #### YAHIR, ERUR #### [facility] [address] [address] [address] Krys Diaz MUCOUS MODERATE Abnormal NONE SEEN [facility] Comment on above: Performed By: #### UMICRO, ERUR #### [facility] [address] [address] [address] Krys Diaz RBC 20-50 Abnormal 0-2 [facility] Comment on above: Performed By: #### UMICRO, ERUR #### [facility] [address] [address] [address] Krys Diaz WBC NONE SEEN Normal NONE SEEN [facility] Comment on above: Performed By: #### UMICRO, ERUR #### [facility] [address] [address] [address] Krys Diaz Vital Signs Date Time Vital Sign Value Performing Clinician Kiko stroud 09-26-2022 10:37-0400 Blood Pressure Location Po SINGHL [facility] [place] 09-26-2022 10:37-0400 Diastolic blood pressure 76 mm[Hg] Po SINGHL [facility] 09-26-2022 10:37-0400 Heart rate 80 /min Po NILL [facility] 09-26-2022 10:37-0400 Respiratory rate 16 /min Po NILL [facility] 09-26-2022 10:37-0400 Systolic blood pressure 112 mm[Hg] Po NILL [facility] [place] Encounters Encounter Date Encounter Type Care Provider Facility Start: 2023 End: 2023 ambulatory ANDREA KASPER Not Available Start: 11-12-2022 End: 11-13-2022 ambulatory Po MENCHACA Facility:[facility] Start: 11-12-2022 End: 11-12-2022 Patient encounter procedure Po MENCHACA General Surgery Nill/Said Jes[facility] Start: 10-29-2022 End: 10-30-[address] NGUYEN ZAMORANO . Facility:[facility] Start: 10-23-2022 Encounter for other preprocedural examination DR PO MENCHACA . [facility] Start: 10-21-2022 End: 10-22-[address] NGUYEN ZAMORANO . Facility:[facility] Start: 10-21-2022 End: 10-22-2022 Encounter for other preprocedural examination DR NGUYEN ZAMORANO . Facility:[facility] Start: 10-08-2022 End: 10-09-2022 ambulatory Po MENCHACA Facility:[facility] Start: 10-08-2022 End: 10-08-2022 Patient encounter procedure Po MENCHACA General Surgery [facility] Start: 10-06-2022 End: 10-07-[address] PO MENCHACA . Facility:[facility] Start: 10-01-2022 End: 10-02-[address] PO MENCHACA . Facility:[facility] Start: 09-29-2022 End: 09-30-[address] PO MENCHACA . Facility:[facility] Start: 09-26-2022 End: 09-27-2022 ambulatory Po MENCHACA Facility:[facility] Start: 09-26-2022 End: 09-26-2022 Patient encounter procedure Po MENCHACA [facility] General [facility] [place] Start: 09-17-2022 ambulatory Po MENCHACA Facility:[facility] Start: 09-17-2022 ambulatory Po MENCHACA Facility: [facility] Start: 09-11-2022 End: 09-12-[address] NGUYEN ZAMORANO . Facility:[facility] Start: 09-08-2022 End: 09-09-[address] MILADY GRIFFIN . Facility:[facility] Procedures Date Procedure Procedure Detail Performing Clinician Start: 10-29-2022 Laparoscopic cholecystectomy Po MENCHACA Start: 10-01-2022 Esophagogastroduodenoscopy Po MENCHACA None (qualifier value) Raimundo MENCHACA Immunizations Immunization Date Immunization Notes Care Provider Fa cility 08-03-2020 SARS-CoV-2 (COVID-19 ) mRNA BNT-162b2 vax Po MENCHACA General Surgery [place] 07-13-2020 SARS-CoV-2 (COVID-19 ) mRNA BNT-162b2 vax Po SINGHL General Surgery [place] NEGATED: Highlighted row has not occurred!09-26-2022 influenza virus vaccine, unspecified formulation Po MENCHACA [facility] General [facility] [place] Payers Date Payer Category Payer Unknown [id number] 1990 Unknown [id number] 2.16.84 [id number] 1990 Unknown [id number] 2.16.84 [id number] 1990 Unknown [id number] 2.16.84 [id number] 1990 Unknown [id number] 2.16.84 [id number] 1990 Unknown [id number] 2.16.84 [id number] 1990 Unknown [id number] 2.16.84 [id number] 1990 Unknown [id number] 2.16.84 [id number] 1990 Unknown [id number] 2.16.8 [id number] 1990 Unknown [id number] 2.16.8 [id number] 1990 Unknown [id number] 2.16.8 [id number] 1990 Unknown [id number] 2.16.8 [id number] 1990 Unknown [id number] 2.16.8 [id number] 1990 Unknown [id number] 2.16.84 [id number] Social History Date Type Detail Facility Start: 09-26-2022 Tobacco smoking status Never s moked tobacco (finding) [facility] Surgery [place] Tobacco smoking status Never [facility] Sex Assigned At Female [facility] Functional Status Date Assessment Result Facility 09-26-2022 Functional Status N/A [facility] [place] Clinical Note 10-29-2022 Note Date & Type Note Facility 10-29-2022 Note OPERATIVE NOTE OPERATION DATE: 10/29/2022 PREOPERATIVE DIAGNOSIS: Symptomatic cholelithiasis. POSTOPERATIVE DIAGNOSIS: Symptomatic cholelithiasis with chronic cholecystitis. PROCEDURE: Laparoscopic cholecystectomy. SURGEON: Po Menchaca M.D. [employer] PARALEGAL: NAYA Denise ANESTHESIA: General endotracheal. ESTIMATED BLOOD LOSS: Less than 10 mL. INDICATIONS AND CONSENT: Patient is a 31-year-old female with a history of worsening biliary colic type symptoms. Workup revealed multiple stones filling the gallbladder. She also had a normal MRCP, preoperative abnormal liver function tests. Indications, risks, benefits, alternatives of proceeding with laparoscopic cholecystectomy were explained extensively to the patient, including risks of bleeding, infection, bile duct injury, bowel injury, need for intraoperative cholangiogram, postoperative ERCP, open procedure or further surgery. All of her questions were answered. Informed consent was obtained. PROCEDURE: Patient was brought to the operating room, placed in the supine position. General anesthesia was induced. She was prepped and draped in the usual sterile fashion. A supraumbilical incision was made with the scalpel blade and carried down through subcutaneous tissue using blunt dissection. The fascia was grasped and incised. Two 0 Vicryl stay sutures placed in either side of the midline fascia. The Gupta trocar was then inserted and secured using the stay sutures. The abdomen was then insufflated with carbon dioxide to a pressure of 15 mm/Hg. The scope was then inserted and the upper abdomen was visualized. The patient was placed in reverse Trendelenburg position with the right side up. Three 5 mm ports were then placed; one in the subxiphoid area, two in the right subcostal area, all under direct visualization. Gallbladder was then grasped with an atraumatic grasper and partially retracted cephalad and to the patient's right. There were noted to be adhesions just to the right of the gallbladder to the liver capsule, involving the colon. These were taken down using sharp dissection as well as electrocautery. There were also adhesions to the body of the gallbladder, omental that were taken down using sharp dissection as well and electrocautery. Once this was completely freed up, the gallbladder was retracted laterally and superiorly and to the patient's right. Then the infundibulum was grasped and retracted laterally and inferiorly. Dissection was begun just below the infundibulum, where the cystic duct and cystic artery were carefully dissected out. There were several branches of the artery. These were controlled with regular clips and divided. The cystic duct was noted to be of normal caliber. It was clipped with two Hem- O-Merlene clips proximally and one distally towards the gallbladder, after the critical view of safety was obtained. The cystic duct was then divided. The gallbladder was then taken down from the liver bed using electrocautery. There were noted to be some chronic inflammatory changes in the liver bed. Once the gallbladder was completely removed, it was brought out in an Endocatch bag through the umbilical port site. The upper abdomen was then copiously irrigated with saline. The liver bed was inspected and noted to be hemostatic with no evidence of bile leak. All port sites were examined upon withdrawal of the ports. There was noted to be good hemostasis. The umbilical port site fascia was closed with a 0 Vicryl figure of eight suture. All port sites were infiltrated with 0.5% Marcaine. The skin was then closed with interrupted 4-0 subcuticular Monocryl sutures and skin glue. Sterile pressure dressing was applied to the supraumbilical incision. Patient tolerated procedure well, was extubated and sent to recovery room in good condition. Gallbladder was examined and noted to be full of small stones with the larger stone noted in the neck of the neck of gallbladder. CC: Patient's family physician. [facility] Clinical Note 10-01-2022 Note Date & Type Note Facility 10-01-2022 Note OPERATIVE NOTE OPERATION DATE: 10/01/2022 PREOPERATIVE DIAGNOSIS: Epigastric and right upper quadrant abdominal pain, gastroesophageal reflux disease. POSTOPERATIVE DIAGNOSIS: Sliding type hiatal hernia, bile reflux, as well as antral gastritis without ulceration. PROCEDURE: EGD with antral biopsy x2. SURGEON: Nikolai Fontenot M.D. ANESTHESIA: Monitored anesthesia care. ESTIMATED BLOOD LOSS: Less than 1 mL. INDICATIONS AND CONSENT: Patient is a 31-year-old female with several week history of right upper quadrant abdominal pain as well as nausea. She also has a long history of gastroesophageal reflux disease. Indications, risks, benefits, alternatives of proceeding with EGD were explained extensively to the patient, including the risks of bleeding, aspiration, esophageal/gastric/duodenal perforation or anesthetic complications. All of her questions were answered. Informed consent was obtained. PROCEDURE: Patient was brought to the operating room, placed in the left lateral decubitus position. Monitored anesthesia care was provided. Bite block was placed in the patient's mouth. Scope was inserted into the oropharynx. Under direct visualization, it was advanced into the esophagus, past the cricopharyngeus, down to the stomach. The stomach was insufflated with air. The pylorus was traversed down to the descending portion of the duodenum. There was no evidence of duodenitis or ulceration. There was no scarring within the pyloric channel. Scope was pulled back into the stomach and retroflexed. There was noted to be a small sliding type hiatal hernia as well as some antral gastritis without ulceration or bleeding. Biopsies were obtained x2 with pediatric cold biopsy forceps with good hemostasis. There was an extensive amount of bile throughout the stomach. The GE junction was noted at approximately 38 cm. There was some mild distal esophagitis without Lugo's changes. The remainder of the esophagus was unremarkable. The scope was then withdrawn. Patient tolerated procedure well, was sent to recovery room in good condition. CC: Nguyen Zamorano M.D. [facility] Clinical Note 09-26-2022 Note Date & Type Note Facility 09-26-2022 Note Chief Complaint consultation for abdominal pain HPI Staff 31 year old female presents on consultation for Dr. Zamorano for abdominal pain. Presented to [place] ED 09/08 with RUQ and mid back pain. Reports pain was intermittent x 5 days and worse after eating. She had emesis x 1. Prescribed Levsin and Relafen; she is taking these with decrease in pain but not resolution. CT ABD/pelvis with pericholecystic inflammation. RUQ US 09/11 with possible cholelithiasis. Reports since ED evaluation, she has daily right sided abdominal pain. She is unable to describe pain other than is more than an ache with occasional sharp stabbing pain. Nothing alleviates pain. Pain is worsened with eating. States she can tolerate bland food but all other foods trigger increase in pain. Reports daily nausea and intermittent emesis. Reports she has frequent bloating, denies heartburn or indigestion. She did have a short episode of constipation followed by diarrhea. Stools have returned to normal. History of Present Illness 31 yo female with long h/o GERD, reports 3 week h/o right-sided pain; began as right lower back pain, thought she had the flu, then began radiating around to right abd; some associated N/V; anything that she ate; also frequent loose stools; seen in [place] ED 09/08/22; normal labs, abd/pelvic ct scan reviewed, wnl, read as possible mild biliary inflammation; no gb distension or thickening, no pericholecystic fluid, no ductal dilation; patient had out patient GB US, images reviewed; GB contracted, normal cbc, read as increased echogenicity, possible stones; poorly visualized. patient has had resolution of emesis and diarrhea, still with nausea and right sided pain, constant; eating bland diet. no h/o hematemesis or melena; no h/o jaundice or pancreatitis; no asa or NSAID use; no abd operations or previous endoscopy; no back injury or trauma. no fmhx of GI malignancy or IBD. Review of Systems PHQ Score Initial Depression Screen Score: 0 ROS - Provider Constitutional: no fever, no sweats, no weight loss. Eyes: no glasses, no blurred vision, no visual loss. ENMT: no dentures, no hoarseness, no swallowing difficulties, no hearing loss, no ear infection(s), no nose bleeds. Cardiovascular: normal blood pressure, no chest pain, regular heartbeat, no heart murmur. Respiratory: no shortness of breath, no cough, no asthma, no wheezing. Gastrointestinal: yes nausea, no vomiting, no diarrhea, no constipation, no blood in stool, no change in bowel habits, yes abdominal pain, no hepatitis. Genitourinary: no kidney stones, no urine infection, no dysuria. Musculoskeletal: yes pain, no weakness. Skin: no changing moles, no rash, no skin lumps. Neurologic: no seizures, no epilepsy, no headache. Psychiatric: no emotional or psychiatric problem. Heme/Lymph: no bleeding problems, no anemia, no blood clots, no transfusions. Allergy/Immunologic: no swollen lymph nodes/glands, no IV drug abuse. Other: Additional ROS info: Except as noted in the above Review of Systems and in the History of Present Illness, all other systems have been reviewed and are negative or noncontributory. Physical Exam Vitals & Measurements HR: 80(Peripheral) RR: 16 BP: 112/76 HT: 62 in HT: 157.4 cm WT: 91.7 kg WT: 201.74 lb BMI: 37.01 HEENT: normal conjunctiva, sclera clear, no scleral icterus, EOM intact, PERRLA, oral mucosa moist without lesions. Neck: trachea midline, no mass, symmetric, no thyromegaly or nodules, no adenopathy Respiratory: lungs CTA, respirations non labored. Cardiovascular: regular rate and rhythm, no murmur, no pedal edema or varicosities. Gastrointestinal: obese, soft, non distended, mild tenderness, epigastrium and RUQ; right flank tenderness no masses, no palpable hernias, diastasis recti no, no hepatosplenomegaly; normal bs Lymphatic: no cervical adenopathy, no supraclavicular adenopathy Musculoskeletal: normal gait, digits and nails without infection, nodes, cyanosis, clubbing. right lower back tenderness Skin: no rashes, no lesions, no ulcers, no subcutaneous nodules, induration. Psychiatric/Neuro: oriented to time, place, person, judgement normal, affect appropriate for age, insight intact, no focal deficits. Tests: labs reviewed, x-rays reviewed, review of old records completed, Discussed surgical options, risks, and possible complications with patient. Assessment/Plan 1. Right upper quadrant pain (R10.11: Right upper quadrant pain) recheck labs; check MRCP to better visualize gallbladder and bile ducts, since poorly visualized on US; will also proceed with EGD under anesthesia to evaluate for ulcer or gastritis; informed consent obtained. Ordered: Basic Metabolic Panel CBC w/ Auto Diff Hepatic Function Panel Lipase Level MRI Cholangiogram Pancreatography (mrcp) 2. Rt flank pain (R10.9: Unspecified abdominal pain) see # 1 Ordered: Basic Metabolic Panel CBC w/ Auto Diff Hepatic Function Panel Lipase Level MRI Cholangiogram Panc (more content not included)... [facility] Comment on above: Result Comment: Elec tronically Signed By: NIKOLAI HENRY, Po Moore\Date and Time Signed: 09/26/22 13:27 EDT Evaluation + Plan note 09-26-2022 Note Date & Type Note Facility 09-26-2022 Evaluation + Plan note Diagnostic Tests PendingCBC w/ Auto Diff 09/26/22Basic Metabolic Panel 09/26/22Hepatic Function Panel 09/26/22Lipase Level 09/26/22 [facility] [place] Hospital course Narrative Note Date & Type Note Facility Hospital course Narrative No data available for this section [facility] [place] Hospital Discharge instructions Note Date & Type Note Facility Hospital Discharge instructions No data available for this section [facility] Progress note Note Date & Type Note Facility Progress note No data available for this section [facility] Summary Purpose Family History No Family History Records FoundNo Family History Records FoundNo Family History Records Found Advance Directives No Advanced Directives Records FoundNo Advanced Directives Records FoundNo Advanced Directives Records Found Additional Source Comments Patient Care team informatio n (unrecognized section and content) Personnel Name: Nguyen Zamorano MD Address: Address: [address] [place] [address] Personnel Name: Nguyen Zamorano MD Address: Address: [address] [place] [address] Personnel Name: Nguyen Zamorano MD Address: Address: [address] [place] [address] INFORMATION SOURCE (unrecogn ized section and content) DATE CREATED AUTHOR 11/08/2022 [facility] [place] [facility] DATE CREATED AUTHOR AUTHOR'S ORGANIZ ATION 12/01/2022 Woodall Rupesh [facility] DATE CREATED AUTHOR AUTHOR'S ORGANIZ ATION 2023 [facility] dical Specialists [facility] FOR RECORDS PERTAINING TO PATIENTS WHO ARE OR HAVE BEEN ENROLLED IN A CHEMICAL DEPENDENCY/SUBSTANCEABUSE PROGRAM, SOME INFORMATION MAY BE OMITTED. This clinical summary was aggregated from multiple sources. Caution should be exercised in using it in the provision of clinical care. This summary normalizes information from multiple sources, and as a consequence, information in this document may materially change the coding, format and clinical context of patient data. In addition, data may be omitted in some cases. CLINICAL DECISIONS SHOULD BE BASED ON THE PRIMARY CLINICAL RECORDS. [employer] provides no warranty or guarantee of the accuracy or completeness of information in this document.
--- NOTE | 2024-03-21 10:00 | PC.NURSE ---
Nursing Note Cardiac Stress Test Reviewed: Medication, allergies and patient history reviewed. Stress Test: [x ] Patient tolerated stress test well. [ ] Patient unable to tolerate walking on treadmill. Switched to Lexiscan stress test. [ ] No chest pain noted per patient [x ] Chest pain that resolved prior to leaving stress lab. [ ] No dyspnea noted. [x ] Dyspnea that resolved prior to leaving stress lab. [ x] Patient left stress lab asymptomatic and hemodynamically stable. [ ] Patient taken to the Emergency Room due to non-resolving symptoms following stress test. [ x] Patient achieved target heart rate. [ ] Patient unable to achieve target heart rate. [ ] Aminophylline administered as reversal agent to Lexiscan (Regadenoson). [ ] Nitro administered. Nursing Comments: Patient was provided contact information for [facility] cardiology per her request to make a follow up/baseline appointment. Patient felt back to her baseline prior to leaving the stress lab today.
== END 2024-03-21 08:12 | disposition home or self-care (01) ==
LOC: CARD 08:11
PROVIDERS: PCP Family Medicine; Visit Provider Family Medicine
DX: R07.9 Chest pain, unspecified (principal)
CPT/HCPCS: 93017

== ENCOUNTER 2024-06-09 13:47 | Outpatient (OUT) | payer OTHER, SELFPAY ==
--- NOTE | 2024-06-09 14:00 | CA_ITS ---
Patient Name: FRANKLIN MOROCHO MR#: [id number] : 1990 Exam Date: 06/09/2024 Ordering Doctor: BLAZE HUBBARD M.D. ECHOCARDIOGRAM REPORT PROCEDURE: CA ECHO DOPPLER COMPLETE INDICATIONS: Chest pain, dyspnea COMPARISON: None. DESCRIPTION: COMPLETE ECHOCARDIOGRAM Real-time transthoracic echocardiography with 2D, M-mode, spectral and color flow Doppler performed. QUALITY: Technical quality was good. LEFT VENTRICLE: Normal chamber size. Normal left ventricular wall thickness. LV EF: Global left ventricular systolic function is normal; visually estimated ejection fraction is 55 to 60% DIASTOLIC: Normal diastolic function. ATRIAL SEPTUM: Inadequately seen. LEFT ATRIUM: Normal chamber size. RIGHT ATRIUM: Normal chamber size. RIGHT VENTRICLE: Normal chamber size. Normal right ventricular systolic function. TRICUSPID VALVE: Normal mobility and thickness. Mild regurgitation. No evidence of pulmonary hypertension. RVSP 22 mmHg MITRAL VALVE: Normal mobility and thickness. No evidence of mitral valve stenosis. There is no mitral annular calcification. Trivial mitral regurgitation. AORTIC VALVE: Normal trileaflet appearance. No visible sclerosis. Normal leaflet mobility. No evidence of aortic valve stenosis. No aortic regurgitation. AORTIC ROOT: Normal diameter and appearance. PULMONIC VALVE: Normal thickness and mobility. No stenosis. Trivial regurgitation. PERICARDIUM: No evidence of pericardial effusion. IVC: Not well visualized. CONCLUSION: 1. Global left ventricular systolic function is normal; visually estimated ejection fraction is 55 to 60% 2. Normal right ventricular size and systolic function 3. Normal diastolic function 4. The left atrium is normal in size 5. Mild tricuspid regurgitation Adult Echocardiography Procedure Report Left Ventricle LVEDD (3.7 - 5.6 cm): 4.61 cm LVESD (2.2 - 4.0 cm): 3.23 cm LVIVS thickness (0.6 - 1.2 cm): 0.79 cm LVPW thickness (0.5 - 1.0 cm): 0.85 cm e': 0.16 m/s E - e': 5.19 LVOT Max Gradient: 2.47 mm[Hg] LVOT Area (cm2): 0.79 m/s Peak Velocity (LVOT): 0.79 m/s Mean Velocity (LVOT): 0.49 m/s LVOT Diameter 1.94 cm Left Atrium LA Volume Index (2D A2C): 22.28 ml/m2 Left Atrium Systolic Dimension: 3.00 cm Mitral Valve MV E to A Ratio: 1.47 Mitral Valve A-Wave Peak Velocity: 0.58 m/s Mitral Valve E-Wave Peak Velocity: 0.86 m/s Right Ventricle Aorta AO Root Diam: 3.03 cm Aortic Valve AoV Area (Peak Jose Manuel): 2.18 cm2, 2.18 cm2 AoV Area (VTI): 2.08 cm2, 2.08 cm2 Peak Velocity(Antegrade Flow): 1.06 m/s Peak Gradient(Antegrade Flow): 4.51 mm[Hg] Mean Velocity(Antegrade Flow): 0.68 m/s Mean Gradient(Antegrade Flow): 2.19 mm[Hg] Velocity Time Integral: 22.09 cm Tricuspid Valve Peak Velocity (Regurgitant Flow): 2.20 m/s Pulmonic Valve Mean Gradient: 1.70 mm[Hg] Mean Velocity: 0.60 m/s Peak Velocity: 0.93 m/s, 0.89 m/s Peak Gradient: 3.16 mm[Hg], 3.44 mm[Hg] Right Atrium Right Atrium Systolic Pressure: 40.90 ml, 40.90 ml Dictated by: Adebayo Gabriel M.D. on 06/13/2024 at 14:22 Approved by: Adebayo Gabriel M.D. on 06/13/2024 at 14:24
== END 2024-06-09 13:48 | disposition home or self-care (01) ==
LOC: CARD 13:47
PROVIDERS: PCP Family Medicine; Visit Provider Internal Medicine Cardiovascular Disease
DX: R07.89 Other chest pain (principal)
CPT/HCPCS: 93306

== ENCOUNTER 2024-08-10 09:15 | Outpatient (OUT) | payer OTHER, SELFPAY ==
--- OUTSIDE RECORDS SUMMARY | 2024-08-10 09:32 | XMS_ITS | CCD ---
Author Organization [facility] CliniSymd Care Team Providers Care Merchandise Processor Name Role Phone Nguyen Zamorano Primary Care Physician [phone] RO ., DR CEDILLO Primary Care Unavailable NILL ., DR FONTEONT Admitting Unavailable NILL ., DR FONTENOT Attending [...] Unavailable NILL ., DR FONTENOT Consulting Unavailable WIN HONGTANY Consulting Unavailable LOLITA II, LALO Consulting Unavailable [...] DR HENNING Attending Unavailable GRECHNY .TIMOTHY Consulting Unavaildomingo e HAY ., DR HENNING Admitting Unavailable HOY ., DR CEDILLO Primary Care Unavailable HAY ., DR HENNING Consulting Unavailable LIZBETH CARRILLO Consulting Unavailable NILLPo R Attending Unavailable NILL, Po R Attending Unavailable NILL, Po R Attending Unavailable NILL, Po Mackey Attending Unavailable NILL, Po Mackey Attending Unavailable NATAPRANDREA SALEH Attending Unavailable BRISEIDA CARRASQUILLO Attending Unavailable BRISEIDA CARRASQUILLO Attending Unavailable Allergies Allergy Classification Reported Allergen(s) Allergy Type Date of Onset Reaction(s) Facility (1 source) No Known Medication Allergies; Translations: [No Known Medication Allergies] Propensity to adverse reactions (disorder) [facility] Repository Medications Current Medications Medication Drug Class(es) Dates Sig (Normalized) Sig (Original) esomeprazole 40 mg delayed release oral capsule (2 sources) Proton Pump Inhibitor Start: 10-08-2022 take 1 capsule by mouth once daily Nexium 40 mg Cap-EC 40 mg = 1 cap(s), Oral, Daily, # 90 cap(s), Refills(s) 1, Pharmacy: [facility]/pharmacy #[id number], 157.4, cm, 09/26/22 10:43:00 EDT, Height/Length [...] [Nausea with vomiting, unspecified] Onset: 09-26-2022 Episodic Nonspecific chest pain (2 sources) Other chest pain; Translations: [Other chest pain] Onset: 05-03-2024 Episodic Other nutritional; endocrine; and metabolic disorders (3 sources) Body mass index 30+ - obesity 09-26-2022 Chronic Ovarian cyst (3 sources) Cyst of ovary 09-22-2022 Episodic Results Test Name Value Interpretation Reference Range Facility Office Visiton 06-10-2024 Follow-up visit [id number] Jose Leiva 1990 F Date Provider Department Center 06/10/2024 BRISEIDA LEON Family History Problem Relation Age of Onset Other Mother Heart failure Maternal Grandmother Atrial fibrillation Maternal Grandmother Other Maternal Great-Grandmother Family Status - Relation Status Age at Mother Maternal Grandmother Maternal Great-Grandmother Other Level of Service:15658 [place] OFFICE/OUTPATIENT ESTABLISHED LOW MDM [address] [facility] Office Visiton 05-03-2024 Follow-up visit [id number] Jose Leiva 1990 F Date Provider Department Center 05/03/2024 BRISEIDA LEON Family History Problem Relation Age of Onset Other Mother Heart failure Maternal Grandmother Atrial fibrillation Maternal Grandmother Family Status - Relation Status Age at Mother Maternal Grandmother Level of Service:18201 [place] OFFICE/OUTPATIENT NEW MODERATE MDM [address] [facility] General Surgery Office/Clini c Noteon 12-01-2022 General [...] NIKOLAI HENRY, KASIA [place] Only if needed [address] [place] [address]- Additional Instructions: Problem List/Past Medical [...] (COVID-19) mRNA BNT-162b2 vax 07/13/2020 Recorded Normal [facility] Comment on above: Result Comment: Electronically Signed By : NIKOLAI HENRY, Po Mackey\.br\Date and Time Signed: 12/01/22 13:04 EDT Ambulatory Visit Summaryon 0 11-12-2022 Ambulatory Visit Summary FRANKLIN LEIVA :1990 Visit Date:11/12/2022 Ambulatory Visit Instructions Your [...] pain Rt flank pain Symptomatic cholelithiasis Normal [facility] Pathology Noteon 11-09-2022 Pathology Note [id number]#1.00CD:127 [facility] Operative Reporton Operative Report [id number]#1.00CD:127 [facility] PREG HCG QUALon 10-29-2022 , QUAL Negative Normal NEGATIVE [facility] Comment on above: Performed By: #### PREG #### [facility] [address] [place] [address] Dr. Krys Diaz Consent for Procedure/Surger yon 10-09-2022 Consent for Procedure/Surge ry [id number]#1.00CD:127 [facility] Pre-Certification Formon Pre-Certificati on Form [id number]#1.00CD:127 [facility] Ambulatory Visit Summaryon 0 10-08-2022 Ambulatory Visit Summary FRANKLIN LEIVA :1990 Visit Date:10/08/2022 Ambulatory Visit Instructions Your Care Team Attending Physician - Po MENCHACA MD Primary Care Physician - Nguyen Zamorano MD [...] sided abdominal pain Rt flank pain Normal [facility] General Surgery Office/Clini c Noteon 10-08-2022 General [...] Daily, # 90 cap(s), Refills(s) 1, Pharmacy: [facility]/pharmacy #[id number], 157.4, cm, 09/26/22 10:43:00 EDT, Height/Length Dosing, 91.7, kg, 09/26/22 10:43:00 EDT, Weight Dosing E&M of Est. Patient Moderate 30-39 Min 96703 2. Hiatal hernia with GERD, (K44.9: Diaphragmatic hernia without obstruction or gangrene)Diaphragmatic hernia without obstruction or gangrene continue Nexium and Carafate; low fat diet Ordered: esomeprazole, 40 mg = 1 cap(s), Oral, Daily, # 90 cap(s), Refills(s) 1, Pharmacy: [facility]/pharmacy #[id number], 157.4, cm, 09/26/22 10:43:00 EDT, Height/Length Dosing, 91.7, kg, 09/26/22 10:43:00 EDT, Weight Dosing E&M of Est. Patient Moderate 30-39 Min 48898 3. 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 Patient Moderate 30-39 Min 58998 Follow-up No qualifying data available Problem List/Past [...] Substance Ab (more content not included)... Normal [facility] Comment on above: Result Comment: Electronically Signed By : NIKOLAI HENRY, Po Moore\Date and Time Signed: 10/08/22 15:53 EDT RAD - MRI Reporton 3 RAD - MRI Report [id number]#1.00CD:127 Normal [facility] Pathology Noteon 10-07-2022 Pathology Note [id number]#1.00CD:127 Normal [facility] MRI ABDOMEN WO CONon 023 MRI ABDOMEN [...] by: VERONICA VELARDE Date: 2022-10-06 08:51 Normal [facility] Operative Reporton 3 Operative Report [id number]#1.00CD:127 Normal [facility] PREG HCG QUALon 10-01-2022 , QUAL Negative Normal NEGATIVE [facility] Comment on above: Performed By: #### PREG #### [facility] [address] [place] [address] Dr. Krys Diaz Lab Reportson 09-30-2022 Lab Reports [id number]#1.00CD:127 Normal [facility] CBC AUTO DIFFon 09-29-2022 BASO # 0.0 103/ul Normal 0.0-0.1 [facility] Comment on above: Performed By: #### CBC #### [facility] [address] [address] [address] Krys Diaz Basophils/100 WBC (Bld) 0.5 % Normal 0.2-2.0 [facility] Comment on above: Performed By: #### CBC #### [facility] [address] [address] [address] Krys Diaz EO # 0.0 103/ul Normal 0.0-0.7 [facility] Comment on above: Performed By: #### CBC #### [facility] [address] [address] [address] Krys Diaz Eosinophils/100 WBC (Bld) 0.6 % Critically low 0.9-7.0 [facility] Comment on above: Performed By: #### CBC #### [facility] [address] [address] [address] Krys Diaz Erythrocyte distribution width (RBC) [Ratio] 12.8 % Normal 11.0-15.0 [facility] Comment on above: Performed By: #### CBC #### [facility] [address] [place] [address] Dr. Krys Diaz Hematocrit (Bld) [Volume fraction] 40.0 % Normal 36.0-48.0 [facility] Comment on above: Performed By: #### CBC #### [facility] [address] [address] [address] Krys Diaz Hemoglobin (Bld) [Mass/Vol] 13.4 g/dL Normal 12.0-16.0 [facility] Comment on above: Performed By: #### CBC #### [facility] [address] [place] [address] Dr. Krys Diaz IG # 0.03 10e3/ul Normal 0.00-0.03 [facility] Comment on above: Performed By: #### CBC #### [facility] [address] [place] [address] Dr. Krys Diaz IG % 0.5 % Normal 0.0-0.5 [facility] Comment on above: Performed By: #### CBC #### [facility] [address] [place] [address] Dr. Krys Diaz LYMPH # 1.7 103/ul Normal 1.2-3.8 [facility] Comment on above: Performed By: #### CBC #### [facility] [address] [place] [address] Dr. Krys Diaz Lymphocytes/100 WBC (Bld) 26.7 % Normal 20.5-60.0 [facility] Comment on above: Performed By: #### CBC #### [facility] [address] [place] [address] Dr. Krys Diaz MANUAL DIFF REQ NO Normal [facility] Comment on above: Performed By: #### CBC #### [facility] [address] [place] [address] Dr. Krys Diaz MCH (RBC) [Entitic mass] 30.8 pg Normal 26.7-34.0 [facility] Comment on above: Performed By: #### CBC #### [facility] [address] [place] [address] Dr. Krys Diaz MCHC (RBC) [Mass/Vol] 33.5 g/dL Normal 29.9-35.2 [facility] Comment on above: Performed By: #### CBC #### [facility] [address] [place] [address] Dr. Krys Diaz MCV (RBC) [Entitic vol] 92.0 fL Normal 81.0-99.0 [facility] Comment on above: Performed By: #### CBC #### [facility] [address] [place] [address] Dr. Krys Diaz MONO # 0.5 103/ul Normal 0.3-0.8 [facility] Comment on above: Performed By: #### CBC #### [facility] [address] [place] [address] Dr. Krys Diaz Monocytes/100 WBC (Bld) 7.9 % Normal 1.7-12.0 [facility] Comment on above: Performed By: #### CBC #### [facility] [address] [address] [address] Krys Diaz NEUT # 4.1 103/ul Normal 1.4-6.5 [facility] Comment on above: Performed By: #### CBC #### [facility] [address] [address] [address] Krys Diaz Neutrophils/100 WBC (Bld) 63.8 % Normal 43.0-75.0 [facility] Comment on above: Performed By: #### CBC #### [facility] [address] [address] [address] Krys Diaz Platelet mean volume (Bld) [Entitic vol] 10.1 fL Normal 9.5-13.5 [facility] Comment on above: Performed By: #### CBC #### [facility] [address] [place] [address] Dr. Krys Diaz PLT 222 103/ul Normal 150-450 [facility] Comment on above: Performed By: #### CBC #### [facility] [address] [address] [address] Krys Diaz RBC 4.35 106/ul Normal 4.20-5.40 [facility] Comment on above: Performed By: #### CBC #### [facility] [address] [place] [address] Dr. Krys Diaz WBC 6.3 103/ul Normal 4.0-11.0 [facility] Comment on above: Performed By: #### CBC #### [facility] [address] [address] [address] Krys Diaz LIPASEon 09-29-2022 Lipase [Catalytic activity/Vol] 85.0 U/L Normal 73.0-393.0 [facility] Comment on above: Performed By: #### BMP, LIVER, LIPA #### [facility] [address] [address]Dr. Krys Diaz LIVER PROFILEon 09-29-2022 Albumin [Mass/Vol] 3.6 g/dL Normal 3.4-5.0 [facility] Comment on above: Performed By: #### BMP, LIVER, LIPA #### [facility] [address] [address]Dr. Krys Diaz Albumin/Globuli n [Mass ratio] 0.9 {ratio} Normal [facility] Comment on above: Performed By: #### BMP, LIVER, LIPA #### [facility] [address] [address]Dr. Krys Diaz ALP [Catalytic activity/Vol] 63 U/L Normal 46-116 [facility] Comment on above: Performed By: #### BMP, LIVER, LIPA #### [facility] [address] [place], [place] [address]Dr. Krys Diaz ALT [Catalytic activity/Vol] 65 U/L Critically high 14-59 [facility] Comment on above: Performed By: #### BMP, LIVER, LIPA #### [facility] [address] [place], [place] [address]Dr. Krys Diaz AST [Catalytic activity/Vol] 35 U/L Normal 15-37 [facility] Comment on above: Performed By: #### BMP, LIVER, LIPA #### [facility] [address] [place], [place] [address]Dr. Krys Diaz BILI, CONJUGATED 0.1 mg/dL Normal 0.0-0.2 [facility] Comment on above: Performed By: #### BMP, LIVER, LIPA #### [facility] [address] [place], [place] [address]Dr. Krys Diaz Bilirubin [Mass/Vol] 0.5 mg/dL Normal 0.2-1.0 [facility] Comment on above: Performed By: #### BMP, LIVER, LIPA #### [facility] [address] [place], [place] [address]Dr. Krys Diaz Globulin (S) [Mass/Vol] 3.9 g/dL Normal [facility] Comment on above: Performed By: #### BMP, LIVER, LIPA #### [facility] [address] [place], [place] [address]Dr. Krys Diaz Protein [Mass/Vol] 7.5 g/dL Normal 6.4-8.2 [facility] Comment on above: Performed By: #### BMP, LIVER, LIPA #### [facility] [address] [address]Dr. Krys Diaz PROF CHEM 8 (BAS METB)on Anion gap [Moles/Vol] 9.5 mmol/L Normal [facility] Comment on above: Performed By: #### BMP, LIVER, LIPA #### [facility] [address] [address] [address] Krys Diaz Calcium [Mass/Vol] 9.0 mg/dL Normal 8.5-10.1 [facility] Comment on above: Performed By: #### BMP, LIVER, LIPA #### [facility] [address] [address] [address] Krys Diaz Chloride [Moles/Vol] 106 mmol/L Normal 98-107 [facility] Comment on above: Performed By: #### BMP, LIVER, LIPA #### [facility] [address] [address] [address] Krys Diaz CO2 [Moles/Vol] 27.3 mmol/L Normal 21.0-32.0 [facility] Comment on above: Performed By: #### BMP, LIVER, LIPA #### [facility] [address] [address] [address] Krys Diaz Creatinine [Mass/Vol] 0.80 mg/dL Normal 0.55-1.02 [facility] Comment on above: Performed By: #### BMP, LIVER, LIPA #### [facility] [address] [address] [address] Krys Diaz EGFR-AF SALVADOREAN >60 Normal >=60 [facility] Comment on above: Performed By: #### BMP, LIVER, LIPA #### [facility] [address] [address] [address] Krys Diaz EGFR-NON AF SALVADOREAN >60 Normal >=60 [facility] Comment on above: Performed By: #### BMP, LIVER, LIPA #### [facility] [address] [address] [address] Krys Diaz Glucose [Mass/Vol] 100 mg/dL Normal 74-106 [facility] Comment on above: Performed By: #### BMP, LIVER, LIPA #### [facility] [address] [address] [address] Krys Diaz Potassium [Moles/Vol] 3.8 mmol/L Normal 3.5-5.1 [facility] Comment on above: Performed By: #### BMP, LIVER, LIPA #### [facility] [address] [address] [address] Krys Diaz Sodium [Moles/Vol] 139 mmol/L Normal 136-145 [facility] Comment on above: Performed By: #### BMP, LIVER, LIPA #### [facility] [address] [address] [address] Krys Diaz Urea nitrogen [Mass/Vol] 8.0 mg/dL Normal 7.0-18.0 [facility] Comment on above: Performed By: #### BMP, LIVER, LIPA #### [facility] [address] [address] [address] Krys Diaz Urea nitrogen/Creati nine [Mass ratio] 10.0 mg/mg Normal [facility] Comment on above: Performed By: #### BMP, LIVER, LIPA #### [facility] [address] [address] [address] Krys Diaz Ambulatory Visit Summaryon 0 09-26-2022 Ambulatory Visit Summary FRANKLIN LEIVA [place] :1990 Visit Date:09/26/2022 Ambulatory Visit Instructions Your [...] 37.0-37.9, adult Cholelithiasis Eczema Left ovarian cyst Normal [facility] Consent for Procedure/Surger yon 09-26-2022 Consent for Procedure/Surge ry [id number]#[id number]:127 [facility] Pre-Certification Formon Pre-Certificati on Form [id number]#1.00CD:127 Normal [facility] ED Note-Physicianon 09-19-19 23 ED Note-Physician [id number]#[id number]:127 Normal [facility] Physician Referralon 023 Physician Referral [id number]:127 Normal [facility] US SINGLE QUAD RT UPPERon US SINGLE [...] by: SCOTTY COLINDRES Date: 2022-09-14 15:35 Normal [facility] CT ABD/PELV W CONon 09-10-[address] [...] by: Amber CARRILLO Date: 2022-09-08 23:07 Normal [facility] CBC AUTO DIFFon 09-08-2022 BASO # 0.0 103/ul Normal 0.0-0.1 [facility] Comment on above: Performed By: #### CBC #### [facility] [address] [address] [address] Krys Diaz Basophils/100 WBC (Bld) 0.3 % Normal 0.2-2.0 [facility] Comment on above: Performed By: #### CBC #### [facility] [address] [address] [address] Krys Diaz EO # 0.1 103/ul Normal 0.0-0.7 [facility] Comment on above: Performed By: #### CBC #### [facility] [address] [place] [address] Dr. Krys Diaz Eosinophils/100 WBC (Bld) 0.7 % Critically low 0.9-7.0 [facility] Comment on above: Performed By: #### CBC #### [facility] [address] [place] [address] Dr. Krys Diaz Erythrocyte distribution width (RBC) [Ratio] 12.8 % Normal 11.0-15.0 [facility] Comment on above: Performed By: #### CBC #### [facility] [address] [place] [address] Dr. Krys Diaz Hematocrit (Bld) [Volume fraction] 38.1 % Normal 36.0-48.0 [facility] Comment on above: Performed By: #### CBC #### [facility] [address] [place] [address] Dr. Krys Diaz Hemoglobin (Bld) [Mass/Vol] 12.9 g/dL Normal 12.0-16.0 [facility] Comment on above: Performed By: #### CBC #### [facility] [address] [place] [address] Dr. Krys Diaz IG # 0.01 10e3/ul Normal 0.00-0.03 [facility] Comment on above: Performed By: #### CBC #### [facility] [address] [place] [address] Dr. Krys Diaz IG % 0.1 % Normal 0.0-0.5 [facility] Comment on above: Performed By: #### CBC #### [facility] [address] [place] [address] Dr. Krys Diaz LYMPH # 2.4 103/ul Normal 1.2-3.8 [facility] Comment on above: Performed By: #### CBC #### [facility] [address] [place] [address] Dr. Krys Diaz Lymphocytes/100 WBC (Bld) 35.8 % Normal 20.5-60.0 [facility] Comment on above: Performed By: #### CBC #### [facility] [address] [address] [address] Krys Diaz MANUAL DIFF REQ NO Normal [facility] Comment on above: Performed By: #### CBC #### [facility] [address] [address] [address] Krys Diaz MCH (RBC) [Entitic mass] 30.0 pg Normal 26.7-34.0 [facility] Comment on above: Performed By: #### CBC #### [facility] [address] [place] [address] Dr. Krys Diaz MCHC (RBC) [Mass/Vol] 33.9 g/dL Normal 29.9-35.2 [facility] Comment on above: Performed By: #### CBC #### [facility] [address] [place] [address] Dr. Krys Diaz MCV (RBC) [Entitic vol] 88.6 fL Normal 81.0-99.0 [facility] Comment on above: Performed By: #### CBC #### [facility] [address] [place] [address] Dr. Krys Diaz MONO # 0.5 103/ul Normal 0.3-0.8 [facility] Comment on above: Performed By: #### CBC #### [facility] [address] [place] [address] Dr. Krys Diaz Monocytes/100 WBC (Bld) 7.0 % Normal 1.7-12.0 [facility] Comment on above: Performed By: #### CBC #### [facility] [address] [place] [address] Dr. Krys Diaz NEUT # 3.7 103/ul Normal 1.4-6.5 [facility] Comment on above: Performed By: #### CBC #### [facility] [address] [place] [address] Dr. Krys Diaz Neutrophils/100 WBC (Bld) 56.1 % Normal 43.0-75.0 [facility] Comment on above: Performed By: #### CBC #### [facility] [address] [address] [address] Krys Diaz Platelet mean volume (Bld) [Entitic vol] 8.9 fL Critically low 9.5-13.5 [facility] Comment on above: Performed By: #### CBC #### [facility] [address] [address] [address] Krys Diaz PLT 287 103/ul Normal 150-450 [facility] Comment on above: Performed By: #### CBC #### [facility] [address] [place] [address] Dr. Krys Diaz RBC 4.30 106/ul Normal 4.20-5.40 [facility] Comment on above: Performed By: #### CBC #### [facility] [address] [place] [address] Dr. Krys Diaz WBC 6.7 103/ul Normal 4.0-11.0 [facility] Comment on above: Performed By: #### CBC #### [facility] [address] [place] [address] Dr. Krys Diaz ER URINE PROFILEon 3 Bilirubin Ql (U) SMALL Abnormal NEGATIVE [facility] Comment on above: Performed By: #### YAHIR ERUR #### [facility] [address] [place] [address] Dr. Krys Diaz Clarity (U) CLEAR Normal CLEAR [facility] Comment on above: Performed By: #### YAHIR ERUR #### [facility] [address] [place] [address] Dr. Krys Diaz Color (U) YELLOW Normal YELLOW [facility] Comment on above: Performed By: #### YAHIR ERUR #### [facility] [address] [place] [address] Dr. Krys LEDESMA A micrscopic examina tion will be performed if indicated. Normal [facility] Comment on above: Performed By: #### YAHIR ERUR #### [facility] [address] [place] [address] Dr. Krys Diaz Glucose Ql (U) Negative Normal NEGATIVE [facility] Comment on above: Performed By: #### YAHIR, ERUR #### [facility] [address] [place] [address] Dr. Krys Diaz Hemoglobin Ql (U) LARGE Abnormal NEGATIVE [facility] Comment on above: Performed By: #### YAHIR, ERUR #### [facility] [address] [place] [address] Dr. Krys Diaz Ketones Ql (U) Negative Normal NEGATIVE [facility] Comment on above: Performed By: #### YAHIR, ERUR #### [facility] [address] [place] [address] Dr. Krys Diaz LEUKOCYTES Negative Normal NEGATIVE [facility] Comment on above: Performed By: #### YAHIR, ERUR #### [facility] [address] [place] [address] Dr. Krys Diaz Nitrite Ql (U) Negative Normal NEGATIVE [facility] Comment on above: Performed By: #### YAHIR ERUR #### [facility] [address] [place] [address] Dr. Krys Diaz pH (U) 5.5 [pH] Normal 5-9 [facility] Comment on above: Performed By: #### YAHIR ERUR #### [facility] [address] [place] [address] Dr. Krys Diaz Protein (U) [Mass/Vol] 30 mg/dL Abnormal NEGATIVE/ TRACE [facility] Comment on above: Performed By: #### YAHIR ERUR #### [facility] [address] [place] [address] Dr. Krys Diaz SPEC GRAVITY >=1.030 Abnormal 1.005-<=1.02 5 [facility] Comment on above: Performed By: #### YAHIR ERUR #### [facility] [address] [place] [address] Dr. Krys Diaz UR MICRO IND INDICATED Normal [facility] Comment on above: Performed By: #### YAHIR ERUR #### [facility] [address] [place] [address] Dr. Krys Diaz Urobilinogen Qn (U) 1.0 {Paramjit'U}/dL Normal 0.2 - 1.0 [facility] Comment on above: Performed By: #### UMICRO, ERUR #### [facility] [address] [place], [place] [address] Dr. Krys Diaz LIPASEon 09-08-2022 Lipase [Catalytic activity/Vol] 82.0 U/L Normal 73.0-393.0 [facility] Comment on above: Performed By: #### CMP, LIPA ####[facility] [address] [place] [address]DrMinerva Diaz PREG HCG QUALon 09-08-2022 , QUAL Negative Normal NEGATIVE [facility] Comment on above: Performed By: #### PREG ####[facility] pital [address] [place] [address]DrMinerva Diaz PROF 14(COMP METB)on 023 Albumin [Mass/Vol] 3.7 g/dL Normal 3.4-5.0 [facility] Comment on above: Performed By: #### CMP, LIPA ####[facility] [address] [place] [address]DrMinerva Diaz Albumin/Globuli n [Mass ratio] 1.1 {ratio} Normal [facility] Comment on above: Performed By: #### CMP, LIPA ####[facility] [address] [place] [address]DrMinerva Diaz ALP [Catalytic activity/Vol] 67 U/L Normal 46-116 [facility] Comment on above: Performed By: #### CMP, LIPA ####[facility] [address] [place] [address]DrMinerva Diaz ALT [Catalytic activity/Vol] 38 U/L Normal 14-59 [facility] Comment on above: Performed By: #### CMP, LIPA ####[facility] [address] [place] [address]DrMinerva Diaz Anion gap [Moles/Vol] 12.4 mmol/L Normal [facility] Comment on above: Performed By: #### CMP, LIPA ####[facility] [address] [place] [address]Dr. Krys Diaz AST [Catalytic activity/Vol] 19 U/L Normal 15-37 [facility] Comment on above: Performed By: #### CMP, LIPA ####[facility] [address] [place] [address]Dr. Krys Diaz Bilirubin [Mass/Vol] 0.4 mg/dL Normal 0.2-1.0 [facility] Comment on above: Performed By: #### CMP, LIPA ####[facility] [address] [place], [place] [address]Dr. Krys Diaz Calcium [Mass/Vol] 8.6 mg/dL Normal 8.5-10.1 [facility] Comment on above: Performed By: #### CMP, LIPA ####[facility] [address] [place], [place] [address]Dr. Krys Diaz Chloride [Moles/Vol] 105 mmol/L Normal 98-107 [facility] Comment on above: Performed By: #### CMP, LIPA ####[facility] [address] [place], [place] [address]Dr. Krys Diaz CO2 [Moles/Vol] 25.9 mmol/L Normal 21.0-32.0 [facility] Comment on above: Performed By: #### CMP, LIPA ####[facility] [address] [place], [place] [address]Dr. Krys Diaz Creatinine [Mass/Vol] 0.86 mg/dL Normal 0.55-1.02 [facility] Comment on above: Performed By: #### CMP, LIPA ####[facility] [address] [place], [place] [address]Dr. Krys Diaz EGFR-AF SALVADOREAN >60 Normal >=60 [facility] Comment on above: Performed By: #### CMP, LIPA ####[facility] [address] [place], [place] [address]Dr. Krys Diaz EGFR-NON AF SALVADOREAN >60 Normal >=60 [facility] Comment on above: Performed By: #### CMP, LIPA ####[facility] [address] [place] [address]Dr. Krys Diaz Globulin (S) [Mass/Vol] 3.5 g/dL Normal [facility] Comment on above: Performed By: #### CMP, LIPA ####[facility] [address] [place] [address]Dr. Krys Diaz Glucose [Mass/Vol] 102 mg/dL Normal 74-106 [facility] Comment on above: Performed By: #### CMP, LIPA ####[facility] [address] [place], [place] [address]Dr. Krys Diaz Potassium [Moles/Vol] 3.3 mmol/L Critically low 3.5-5.1 [facility] Comment on above: Performed By: #### CMP, LIPA ####[facility] [address] [place], [place] [address]Dr. Krys Diaz Protein [Mass/Vol] 7.2 g/dL Normal 6.4-8.2 [facility] Comment on above: Performed By: #### CMP, LIPA ####[facility] [address] [place], [place] [address]Dr. Krys Diaz Sodium [Moles/Vol] 140 mmol/L Normal 136-145 [facility] Comment on above: Performed By: #### CMP, LIPA ####[facility] [address] [place], [place] [address]Dr. Krys Diaz Urea nitrogen [Mass/Vol] 6.0 mg/dL Critically low 7.0-18.0 [facility] Comment on above: Performed By: #### CMP, LIPA ####[facility] [address] [place], [place] [address]Dr. Krys Diaz Urea nitrogen/Creati nine [Mass ratio] 7.0 mg/mg Normal [facility] Comment on above: Performed By: #### CMP, LIPA ####[facility] [address] [place] [address]Dr. Krys Diaz URINE MICROSCOPIC ONLYon BACTERIA TRACE Abnormal NONE SEEN [facility] Comment on above: Performed By: #### YAHIR, ERUR #### [facility] [address] [place] [address] Dr. Krys Diaz Bacteria identified Cx Nom (U) NOT INDICATED Normal [facility] Comment on above: Performed By: #### YAHIR, ERUR #### [facility] [address] [place] [address] Dr. Krys Diaz CAST NONE SEEN Normal NONE SEEN [facility] Comment on above: Performed By: #### YAHIR, ERUR #### [facility] [address] [place] [address] Dr. Krys Diaz Crystals LM Nom (Urine sed) NONE SEEN Normal NONE SEEN [facility] Comment on above: Performed By: #### YAHIR, ERUR #### [facility] [address] [place] [address] Dr. Krys Diaz Epithelial cells LM Ql (Urine sed) MODERATE Abnormal NONE SEEN /RARE [facility] Comment on above: Performed By: #### YAHIR, ERUR #### [facility] [address] [place] [address] Dr. Krys Diaz MUCOUS MODERATE Abnormal NONE SEEN [facility] Comment on above: Performed By: #### YAHIR, ERUR #### [facility] [address] [place] [address] Dr. Krys Diaz RBC 20-50 Abnormal 0-2 [facility] Comment on above: Performed By: #### YAHIR, ERUR #### [facility] [address] [place] [address] Dr. Krys Diaz WBC NONE SEEN Normal NONE SEEN [facility] Comment on above: Performed By: #### YAHIR, ERUR #### [facility] [address] [place] [address] Dr. Krys Diaz Vital Signs Date Time Vital Sign Value Performing Clinician Kiko stroud 09-26-2022 10:37-0400 Blood Pressure Location Po SINGHL [facility] 09-26-2022 10:37-0400 Diastolic blood pressure 76 mm[Hg] Po NILL [facility] 09-26-2022 10:37-0400 Heart rate 80 /min Po NILL [facility] 09-26-2022 10:37-0400 Respiratory rate 16 /min Po NILL [facility] 09-26-2022 10:37-0400 Systolic blood pressure 112 mm[Hg] Po NILL [facility] Encounters Encounter Date Encounter Type Care Provider Facility Start: 06-10-2024 End: 06-10-2024 ambulatory [facility] Start: 05-03-2024 End: 05-03-2024 ambulatory [facility] Start: 2023 End: 2023 ambulatory ANDREA KASPER Not Available Start: 11-12-2022 End: 11-13-2022 ambulatory Po MENCHACA Facility:[facility] Start: 11-12-2022 End: 11-12-2022 Patient encounter procedure Po MENCHACA [facility] Start: 10-29-2022 End: 10-30-[address] NGUYEN ZAMORANO . Facility:[facility] Start: 10-23-2022 Encounter for other preprocedural examination DR PO MENCHACA . [facility] Start: 10-21-2022 End: 10-22-[address] NGUYEN ZAMORANO . Facility:[facility] Start: 10-21-2022 End: 10-22-2022 Encounter for other preprocedural examination DR NGUYEN ZAMORANO . Facility:[facility] Start: 10-08-2022 End: 10-09-2022 ambulatory Po MENCHACA Facility:[facility] Start: 10-08-2022 End: 10-08-2022 Patient encounter procedure Po Key NIKOLAI General Surgery [facility] Start: 10-06-2022 End: 10-07-[address] PO MENCHACA . Facility:[facility] Start: 10-01-2022 End: 10-02-[address] PO MENCHACA . Facility:[facility] Start: 09-29-2022 End: 09-30-[address] PO MENCHACA . Facility:[facility] Start: 09-26-2022 End: 09-27-2022 ambulatory Po MENCHACA Facility: [facility] Start: 09-26-2022 End: 09-26-2022 Patient encounter procedure Po MENCHACA [facility] [place] Start: 09-17-2022 ambulatory Po MENCHACA Facility:[facility] [place] Start: 09-17-2022 ambulatory Po MENCHACA Facility:[facility] Start: 09-11-2022 End: 09-12-2022 ambulatory [...] mRNA BNT-162b2 vax Po MENCHACA [facility] [place] 07-13-2020 SARS-CoV-2 (COVID-19 ) mRNA BNT-162b2 vax Po MENCHACA [facility] [place] NEGATED: Highlighted row has not occurred!09-26-2022 influenza virus vaccine, unspecified formulation Po MENCHACA [facility] Payers Date Payer Category Payer Unknown [id number] 1990 Unknown [id number] 2.16.84 [id number] 1991 Unknown [id number] 2.16.84 [id number] 1991 Unknown [id number] 2.16.84 [id number] 1991 Unknown [id number] 2.16.84 [id number] 1991 Unknown [id number] 2.16.84 [id number] 1991 Unknown [id number] 2.16.84 [id number] 1991 Unknown [id number] 2.16.84 [id number] 1991 Unknown [id number] 2.16.8 [id number] 1991 Unknown [id number] 2.16.8 [id number] 1991 Unknown [id number] 2.16.8 [id number] 1991 Unknown [id number] 2.16.8 [id number] 1991 Unknown [id number] 2.16.8 [id number] 1991 Unknown [id number] 2.16.84 [id number] Social History Date Type Detail Facility Start: 09-26-2022 Tobacco smoking status Never s moked tobacco (finding) [facility] Tobacco smoking status Never Juan [facility] Sex Assigned At Female [facility] Functional Status Date Assessment Result Facility 09-26-2022 Functional Status N/A [facility] Progress note 06-10-2024 Note Date & Type Note Facility 06-10-2024 Note Cardiology Clinic No te HPI: Franklin Leiva is a 33 y.o. female With no significant past medical history who is here to establish care. She was self-referred for chest pain and shortness of breath. She reported that her mother suddenly in November 2023, from cardiac arrest. Patient here for follow up event monitor and echo. She denies any more chest pain. She denies any palpitations. She states that she continues to have some shortness of breath, which mostly occurs at rest. She is able to exercise regularly without any chest pain or shortness of breath. Of note: Patient had an exercise stress test performed, which was negative for ischemia. Cardiology ROS: 10 point ROS is performed and is negative unless otherwise specified in HPI. Past Medical History She has a past medical history of Chest pain, Dyspnea, and Family history of cardiac arrest. Surgical History She has a past surgical history that includes Cholecystectomy. Social History She reports that she has never smoked. She has never used smokeless tobacco. She reports that she does not currently use alcohol. No history on file for drug use. Family History Family History Problem Relation Name Age of Onset Other (cardiac arrest) Mother Heart failure Maternal Grandmother Atrial fibrillation Maternal Grandmother Medications Current Outpatient Medications on File Prior to Visit Medication Sig Dispense Refill esomeprazole (NexIUM) [address] capsule Take 40 mg by mouth before breakfast. Do not open capsule. traZODone (Desyrel) 50 mg tablet Take 50 mg by mouth if needed. No current facility-administered medications on file prior to visit. Allergies Patient has no known allergies. Physical Exam VITAL SIGNS: There were no vitals taken for this visit. Constitutional: Well developed, Well nourished, No acute distress, Non-toxic appearance. HENT: Normocephalic, Atraumatic, Bilateral external ears have normal appearance, Nose appears normal, nares are patent. Eyes: PERRLA, EOMI, Conjunctiva normal, No discharge. Neck: Normal range of motion, No tenderness, Supple, No stridor. No cervical lymphadenopathy noted. Cardiovascular: Normal heart rate, Normal rhythm, No murmurs, No rubs, No gallops. Thorax & Lungs: Normal breath sounds, No respiratory distress, No wheezing, No chest tenderness to palpation. Abdomen: Bowel sounds normal, Soft, Nontender, No masses, No pulsatile masses. Skin: Warm, Dry, No erythema, No rash. Back: No tenderness, No CVA tenderness. Extremities: Intact distal pulses, No edema, No tenderness, No cyanosis, No clubbing. Musculoskeletal: Grossly normal strength in extremities Neurologic: Alert & oriented x 3, no gross focal neurological deficits Psychiatric: Affect normal, Judgment normal, Mood normal. EKG results: No results found for this or any previous visit (from the past 4464 hour(s)). Echo results: No echocardiogram results found for the past 12 months Radiology: No image results found. Impression: -Chest pain, atypical in nature. No evidence of ischemia on treadmill stress test. -Shortness of breath, unremarkable echo -Bradycardia on Apple watch, no sustained arrythmias on echo -Family history of sudden cardiac Plan: -No sustained arrythmias on event. Echo unremarkable -Symptoms atypical in nature. She does not have any exertional symptoms. -No further cardiac testing at this time -Optimize medical management -Aggressive risk factor modification -Plan of care discussed with patient. All questions were answered. Patient voices understanding and is agreeable with current plan. -Patient was educated on red flag symptoms. Strict return precautions were provided. Patient verbalizes understanding -Follow-up in cardiology clinic After testing is complete Briseida Carrasquillo MD Interventional Cardiology [facility] Progress note 05-03-2024 Note Date & Type Note Facility 05-03-2024 Note Cardiology Clinic No te HPI: Franklin Leiva is a 33 y.o. female With no significant past medical history who is here to establish care. She is self-referred for chest pain and shortness of breath. She reports that her mother suddenly in November 2023, from cardiac arrest. She states that since that time, she has had 's chest problems. She is very physically active, she exercises on a daily basis, she denies that she has any chest pain or shortness of breath with activity. After activity, usually several hours to several days later, she develops some chest heaviness. Additionally, she notes some episodes of bradycardia on her Apple Watch. She denies any dizziness or lightheadedness with bradycardia. Patient denies any previous cardiac history. She denies any history of CVA, PVD, DM, hypertension, depressed LVEF, and CAD. As mentioned, patient's mother suddenly of a presumed cardiac event in November 2023. No autopsy was performed. However, patient states that when she was transported to the hospital postcardiac arrest, cardiac cath and presumably echo were performed. Patient was found to have no significant coronary artery disease. Additionally, reportedly, her heart was structurally normal. No additional family history of any cardiac events. No additional sudden cardiac reported. Of note: Patient had an exercise stress test performed, which was negative for ischemia. Cardiology ROS: Review of Systems Cardiovascular: Positive for chest pain and dyspnea on exertion. Respiratory: Positive for shortness of breath. Neurological: Positive for light-headedness (position changes). All other systems reviewed and are negative. Past Medical History She has no past medical history on file. Surgical History She has no past surgical history on file. Social History She has no history on file for tobacco use, alcohol use, and drug use. Family History No family history on file. Medications No current outpatient medications on file prior to visit. No current facility-administered medications on file prior to visit. Allergies Patient has no allergy information on record. Physical Exam VITAL SIGNS: There were no vitals taken for this visit. Constitutional: Well developed, Well nourished, No acute distress, Non-toxic appearance. HENT: Normocephalic, Atraumatic, Bilateral external ears have normal appearance, Nose appears normal, nares are patent. Eyes: PERRLA, EOMI, Conjunctiva normal, No discharge. Neck: Normal range of motion, No tenderness, Supple, No stridor. No cervical lymphadenopathy noted. Cardiovascular: Normal heart rate, Normal rhythm, No murmurs, No rubs, No gallops. Thorax & Lungs: Normal breath sounds, No respiratory distress, No wheezing, No chest tenderness to palpation. Abdomen: Bowel sounds normal, Soft, Nontender, No masses, No pulsatile masses. Skin: Warm, Dry, No erythema, No rash. Back: No tenderness, No CVA tenderness. Extremities: Intact distal pulses, No edema, No tenderness, No cyanosis, No clubbing. Musculoskeletal: Grossly normal strength in extremities Neurologic: Alert & oriented x 3, no gross focal neurological deficits Psychiatric: Affect normal, Judgment normal, Mood normal. EKG results: No results found for this or any previous visit (from the past 4464 hour(s)). Echo results: No echocardiogram results found for the past 12 months Radiology: No image results found. Impression: -Chest pain, atypical in nature. No evidence of ischemia on treadmill stress test. -Shortness of breath -Bradycardia on Apple watch -Family history of sudden cardiac Plan: -Will obtain echocardiogram to assess LVEF, regional wall motion, and valvular function. Given family history of sudden cardiac , important to assess For any structural abnormalities of the heart. -Given episodes of bradycardia, will obtain 30-day event monitor to rule out any malignant arrhythmias -Further recommendations to follow additional testing. -Optimize medical management -Aggressive risk factor modification -Plan of care discussed with patient. All questions were answered. Patient voices understanding and is agreeable with current plan. -Patient was educated on red flag symptoms. Strict return precautions were provided. Patient verbalizes understanding -Follow-up in cardiology clinic After testing is complete Thank you for allowing us to participate in the care of your patient. Please do not hesitate to contact cardiology with any questions or concerns. Briseida Carrasquillo MD Interventional Cardiology [facility] Clinical Note 10-29-2022 Note Date & Type Note Facility 10-29-2022 Note OPERATIVE NOTE OPERATION DATE: 10/29/2022 PREOPERATIVE DIAGNOSIS: Symptomatic cholelithiasis. POSTOPERATIVE DIAGNOSIS: Symptomatic cholelithiasis with chronic cholecystitis. PROCEDURE: Laparoscopic cholecystectomy. SURGEON: Po Menchaca M.D. DIGITAL ADVERTISING ANALYST: NAYA Denise ANESTHESIA: General endotracheal. ESTIMATED BLOOD [...] of gallbladder. CC: Patient's family physician. [facility] Clinical Note 10-01-2022 Note Date & [...] good condition. CC: Nguyen Zamorano M.D. [facility] Clinical Note 09-26-2022 Note Date & Type Note Facility 09-26-2022 Note Chief Complaint consultation for abdominal pain HPI Staff 31 year old female presents on consultation for Dr. Zamorano for abdominal pain. Presented to [place] ED 09/08 with RUQ and mid back [...] ate; also frequent loose stools; seen in [facility] 09/08/22; normal labs, abd/pelvic ct scan [...] MRI Cholangiogram Panc (more content not included)... [facility] Comment on above: Result Comment: Elec tronically Signed By: NIKOLAI HENRY, Po Moore\Date and Time Signed: 09/26/22 13:27 EDT Evaluation + Plan note 09-26-2022 Note Date & Type Note Facility 09-26-2022 Evaluation + Plan note Diagnostic Tests PendingCBC w/ Auto Diff 09/26/22Basic Metabolic Panel 09/26/22Hepatic Function Panel 09/26/22Lipase Level 09/26/22 [facility] Hospital course Narrative Note Date & Type Note Facility Hospital course Narrative No data available for this section [facility] Hospital Discharge instructions Note Date & Type Note Facility Hospital Discharge instructions No data available for this section [facility] Progress note Note Date & Type Note Facility Progress note No data available for this section [facility] Summary Purpose Family History No Family History Records FoundNo Family History Records FoundNo Family History Records FoundNo Family History Records Found Advance Directives No Advanced Directives Records FoundNo Advanced Directives Records FoundNo Advanced Directives Records FoundNo Advanced Directives Records Found Additional Source Comments Patient Care team informatio n (unrecognized section and content) Personnel Name: Nguyen Zamorano MD Address: Address: [address] [place] [address] [place], [place] [address] Personnel Name: Nguyen Zamorano MD Address: Address: [address] [place], [place] [address] [address]- Personnel Name: Nguyen Zamorano MD Address: Address: [address] [place] [address] INFORMATION SOURCE (unrecogn ized section and content) DATE CREATED AUTHOR 11/08/2022 [facility] DATE CREATED AUTHOR AUTHOR'S ORGANIZ ATION 12/01/2022 [facility] DATE CREATED AUTHOR AUTHOR'S ORGANIZ ATION 2023 [facility] DATE CREATED AUTHOR AUTHOR'S ORGANIZ ATION 07/11/2024 [facility] FOR RECORDS PERTAINING TO PATIENTS WHO ARE [...] BE BASED ON THE PRIMARY CLINICAL RECORDS. [facility] [email or web address] provides no warranty or guarantee of the accuracy or completeness of information in this document.
[2024-08-10 10:23] LABS: Alanine Aminotransferase 55 U/L (14-59); Albumin Level 3.7 g/dL (3.4-5.0); Alkaline Phosphatase 72 U/L (46-116); Anion Gap 10.6; Aspartate Amino Transferase 24 U/L (15-37); BUN Creatinine Ratio 13.5; Bilirubin Total 0.4 mg/dL (0.2-1.0); C Reactive Protein <0.50 mg/dL (<=0.50); Calcium 8.9 mg/dL (8.5-10.1); Carbon Dioxide 28.7 mmol/L (21.0-32.0); Chloride 106 mmol/L (98-107); Estimated GFR (African America >60 (>=60 mL/min/1.73m^2); Estimated GFR (Non-African Ame >60 (>=60 mL/min/1.73m^2); Globulin 3.7 g/dL; Glucose 96 mg/dL (74-106); Potassium 3.3 mmol/L (3.5-5.1); Sodium 142 mmol/L (136-145); Thyroid Stimulating Hormone 0.825 uIU/mL (0.358-3.740); Total Protein 7.4 g/dL (6.4-8.2); Uric Acid 4.4 mg/dL (2.6-6.0)
[2024-08-10 10:49] LABS: Free T4 0.91 ng/dL (0.76-1.46)
[2024-08-11 04:07] LABS: Antistreptolysin O Ab 49.5 IU/mL (0.0-200.0); Rheumatoid Factor (RF) <10.0 IU/mL (<14.0)
[2024-08-11 14:10] LABS: Antinuclear Antibodies, IFA Positive (.)
== END 2024-08-10 09:16 | disposition home or self-care (01) ==
LOC: LAB 09:16
PROVIDERS: PCP Family Medicine; Visit Provider Family Medicine
DX: H66.90 Otitis media, unspecified, unspecified ear (principal)
CPT/HCPCS: 36415; 80053; 84439; 84443; 84550; 86038; 86060; 86140; 86431

== ENCOUNTER 2024-08-17 08:15 | Outpatient (OUT) | payer OTHER, SELFPAY ==
--- OUTSIDE RECORDS SUMMARY | 2024-08-17 08:28 | XMS_ITS | CCD ---
Author Organization [facility] CliniSypr Care Team Providers Care Cpa Tax Name Role Phone Nguyen Zamorano Primary Care Physician [phone] RO ., DR CEDILLO Primary Care Unavailable [...] Medication Allergies] Propensity to adverse reactions (disorder) [facility] Repository Medications Current Medications Medication Drug Class(es) Dates Sig (Normalized) Sig (Original) esomeprazole 40 mg delayed release oral capsule (2 sources) Proton Pump Inhibitor Start: 10-08-2022 take 1 capsule by mouth once daily Nexium 40 mg Cap-EC 40 mg = 1 cap(s), Oral, Daily, # 90 cap(s), Refills(s) 1, Pharmacy: [facility]/pharmacy #[id number], 157.4, cm, 09/26/22 10:43:00 EDT, Height/Length [...] Range Facility Office Visiton 06-10-2024 Follow-up visit [id number] Jose Leiva 1990 F Date Provider Department Center 06/10/2024 BRISEIDA LEON Family History Problem Relation Age of Onset Other Mother Heart failure Maternal Grandmother Atrial fibrillation Maternal Grandmother Other Maternal Great-Grandmother Family Status - Relation Status Age at Mother Maternal Grandmother Maternal Great-Grandmother Other Level of Service:47715 UT OFFICE/OUTPATIENT ESTABLISHED LOW MDM 20 MIN Normal [facility] Office Visiton 05-03-2024 Follow-up visit [id number] Jose Leiva 1990 F Date Provider Department Center 05/03/2024 BRISEIDA LEON Family History Problem Relation Age of Onset Other Mother Heart failure Maternal Grandmother Atrial fibrillation Maternal Grandmother Family Status - Relation Status Age at Mother Maternal Grandmother Level of Service:85885 UT OFFICE/OUTPATIENT NEW MODERATE MDM 45 MINUTES Normal [facility] General Surgery Office/Clini c Noteon 12-01-2022 [...] NIKOLAI HENRY, KASIA [place] Only if needed [address] [place] [address]- Additional Instructions: Problem List/Past Medical [...] mRNA BNT-162b2 vax 07/13/2020 Recorded Normal [facility] Comment on above: Result Comment: [...] pain Rt flank pain Symptomatic cholelithiasis Normal [facility] Pathology Noteon 11-09-2022 Pathology Note [id number]#1.00CD:127 [facility] Operative Reporton Operative Report [id number]#1.00CD:127 [facility] PREG HCG QUALon 10-29-2022 , QUAL Negative Normal NEGATIVE [facility] Comment on above: Performed By: #### PREG #### [facility] [address] [place] [address] Dr. Krys Diaz Consent for Procedure/Surger yon 10-09-2022 Consent for Procedure/Surge ry [id number]#1.00CD:127 [facility] Pre-Certification Formon Pre-Certificati on Form [id number]#1.00CD:127 [facility] Ambulatory Visit Summaryon 0 10-08-2022 Ambulatory Visit Summary FRANKLIN LEIVA :1990 Visit Date:10/08/2022 Ambulatory Visit Instructions Your Care Team Attending Physician - oP MENCHACA MD Primary Care Physician - Nguyen [...] sided abdominal pain Rt flank pain Normal [facility] General Surgery Office/Clini c Noteon 10-08-2022 General [...] # 90 cap(s), Refills(s) 1, Pharmacy: [facility]/pharmacy #[id number], 157.4, cm, 09/26/22 10:43:00 EDT, Height/Length Dosing, 91.7, kg, 09/26/22 10:43:00 EDT, Weight Dosing E&M of Est. Patient Moderate 30-39 Min 79772 2. Hiatal hernia with GERD, (K44.9: Diaphragmatic hernia without obstruction or gangrene)Diaphragmatic hernia without obstruction or gangrene continue Nexium and Carafate; low fat diet Ordered: esomeprazole, 40 mg = 1 cap(s), Oral, Daily, # 90 cap(s), Refills(s) 1, Pharmacy: [facility]/pharmacy #[id number], 157.4, cm, 09/26/22 10:43:00 EDT, Height/Length Dosing, 91.7, kg, 09/26/22 10:43:00 EDT, Weight Dosing E&M of Est. Patient Moderate 30-39 Min 97927 3. 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 Patient Moderate 30-39 Min 72028 Follow-up No qualifying data available Problem List/Past [...] Substance Ab (more content not included)... Normal [facility] Comment on above: Result Comment: Electronically Signed By : NIKOLAI HENRY, Po Moore\Date and Time Signed: 10/08/22 15:53 EDT RAD - MRI Reporton 3 RAD - MRI Report [id number]#1.00CD:127 Normal [facility] Pathology Noteon 10-07-2022 Pathology Note [id number]#1.00CD:127 Normal [facility] MRI ABDOMEN WO CONon 023 MRI ABDOMEN [...] VERONICA VELARDE Date: 2022-10-06 08:51 Normal [facility] Operative Reporton 3 Operative Report [id number]:127 Normal [facility] PREG HCG QUALon 10-01-2022 , QUAL Negative Normal NEGATIVE [facility] Comment on above: Performed By: #### PREG #### [facility] [address] [place] [address] Dr. Krys Diaz Lab Reportson 09-30-2022 Lab Reports [id number]#1.00CD:127 Normal [facility] CBC AUTO DIFFon 09-29-2022 BASO # 0.0 103/ul Normal 0.0-0.1 [facility] [place] [facility] Comment on above: Performed By: #### CBC #### [facility] [address] [address] [address] Krys Diaz Basophils/100 WBC (Bld) 0.5 % Normal 0.2-2.0 [facility] Comment on above: Performed By: #### CBC #### [facility] [address] [address] [address] Krys Diaz EO # 0.0 103/ul Normal 0.0-0.7 [facility] [place] [facility] Comment on above: Performed By: #### CBC #### [facility] [address] [address] [address] Krys Diaz Eosinophils/100 WBC (Bld) 0.6 % Critically low 0.9-7.0 [facility] Comment on above: Performed By: #### CBC #### [facility] [address] [address] [address] Krys Diaz Erythrocyte distribution width (RBC) [Ratio] 12.8 % Normal 11.0-15.0 [facility] Comment on above: Performed By: #### CBC #### [facility] [address] [place] [address] Dr. Krys Diaz Hematocrit (Bld) [Volume fraction] 40.0 % Normal 36.0-48.0 [facility] Comment on above: Performed By: #### CBC #### [facility] [address] [address] [address] Krys Diaz Hemoglobin (Bld) [Mass/Vol] 13.4 g/dL Normal 12.0-16.0 [facility] Comment on above: Performed By: #### CBC #### [facility] [address] [place] [address] Dr. Krys Diaz IG # 0.03 10e3/ul Normal 0.00-0.03 [facility] [place] [facility] Comment on above: Performed By: #### CBC #### [facility] [address] [place] [address] Dr. Krys Diaz IG % 0.5 % Normal 0.0-0.5 [facility] Comment on above: Performed By: #### CBC #### [facility] [address] [place] [address] Dr. Krys Diaz LYMPH # 1.7 103/ul Normal 1.2-3.8 [facility] [place] [facility] Comment on above: Performed By: #### CBC #### [facility] [address] [place] [address] Dr. Krys Diaz Lymphocytes/100 WBC (Bld) 26.7 % Normal 20.5-60.0 [facility] Comment on above: Performed By: #### CBC #### [facility] [address] [place] [address] Dr. Krys Diaz MANUAL DIFF REQ NO Normal [facility] Comment on above: Performed By: #### CBC #### [facility] [address] [place] [address] Dr. Krys Diaz MCH (RBC) [Entitic mass] 30.8 pg Normal 26.7-34.0 [facility] Comment on above: Performed By: #### CBC #### [facility] [address] [place] [address] Dr. Krys Diaz MCHC (RBC) [Mass/Vol] 33.5 g/dL Normal 29.9-35.2 [facility] [place] [facility] Comment on above: Performed By: #### CBC #### [facility] [address] [place] [address] Dr. Krys Diaz MCV (RBC) [Entitic vol] 92.0 fL Normal 81.0-99.0 [facility] [place] [facility] Comment on above: Performed By: #### CBC #### [facility] [address] [place] [address] Dr. Krys Diaz MONO # 0.5 103/ul Normal 0.3-0.8 [facility] [place] [facility] Comment on above: Performed By: #### CBC #### [facility] [address] [place] [address] Dr. Krys Diaz Monocytes/100 WBC (Bld) 7.9 % Normal 1.7-12.0 [facility] [place] [facility] Comment on above: Performed By: #### CBC #### [facility] [address] [address] [address] Krys Diaz NEUT # 4.1 103/ul Normal 1.4-6.5 [facility] [place] [facility] Comment on above: Performed By: #### CBC #### [facility] [address] [address] [address] Krys Diaz Neutrophils/100 WBC (Bld) 63.8 % Normal 43.0-75.0 [facility] Comment on above: Performed By: #### CBC #### [facility] [address] [address] [address] Krys Diaz Platelet mean volume (Bld) [Entitic vol] 10.1 fL Normal 9.5-13.5 [facility] [place] [facility] Comment on above: Performed By: #### CBC #### [facility] [address] [place] [address] Dr. Krys Diaz PLT 222 103/ul Normal 150-450 [facility] Comment on above: Performed By: #### CBC #### [facility] [address] [address] [address] Krys Diaz RBC 4.35 106/ul Normal 4.20-5.40 [facility] Comment on above: Performed By: #### CBC #### [facility] [address] [place] [address] Dr. Krys Diaz WBC 6.3 103/ul Normal 4.0-11.0 [facility] Comment on above: Performed By: #### CBC #### [facility] [address] [address] [address] Krys Diaz LIPASEon 09-29-2022 Lipase [Catalytic activity/Vol] 85.0 U/L Normal 73.0-393.0 [facility] Comment on above: Performed By: #### BMP, LIVER, LIPA #### [facility] [address] [address]Dr. Krys Diaz LIVER PROFILEon 09-29-2022 Albumin [Mass/Vol] 3.6 g/dL Normal 3.4-5.0 [facility] Comment on above: Performed By: #### BMP, LIVER, LIPA #### [facility] [address] [address]Dr. Krys Diaz Albumin/Globuli n [Mass ratio] 0.9 {ratio} Normal [facility] Comment on above: Performed By: #### BMP, LIVER, LIPA #### [facility] [address] [address]Dr. Krys Diaz ALP [Catalytic activity/Vol] 63 U/L Normal 46-116 [facility] Comment on above: Performed By: #### BMP, LIVER, LIPA #### [facility] [address] [place], [place] [address]Dr. Krys Diaz ALT [Catalytic activity/Vol] 65 U/L Critically high 14-59 [facility] [place] [facility] Comment on above: Performed By: #### BMP, LIVER, LIPA #### [facility] [address] [place], [place] [address]Dr. Krys Diaz AST [Catalytic activity/Vol] 35 U/L Normal 15-37 [facility] Comment on above: Performed By: #### BMP, LIVER, LIPA #### [facility] [address] [place], [place] [address]Dr. Krys Diaz BILI, CONJUGATED 0.1 mg/dL Normal 0.0-0.2 [facility] Comment on above: Performed By: #### BMP, LIVER, LIPA #### [facility] [address] [place], [place] [address]Dr. Krys Diza Bilirubin [Mass/Vol] 0.5 mg/dL Normal 0.2-1.0 [facility] Comment on above: Performed By: #### BMP, LIVER, LIPA #### [facility] [address] [place], [place] [address]Dr. Krys Diaz Globulin (S) [Mass/Vol] 3.9 g/dL Normal [facility] Comment on above: Performed By: #### BMP, LIVER, LIPA #### [facility] [address] [place], [place] [address]Dr. Krys Diaz Protein [Mass/Vol] 7.5 g/dL Normal 6.4-8.2 [facility] Comment on above: Performed By: #### BMP, LIVER, LIPA #### [facility] [address] [address]Dr. Krys Diaz PROF CHEM 8 (BAS METB)on Anion gap [Moles/Vol] 9.5 mmol/L Normal [facility] Comment on above: Performed By: #### BMP, LIVER, LIPA #### [facility] [address] [address] [address] Krys Diaz Calcium [Mass/Vol] 9.0 mg/dL Normal 8.5-10.1 [facility] Comment on above: Performed By: #### BMP, LIVER, LIPA #### [facility] [address] [address] [address] Krys Diaz Chloride [Moles/Vol] 106 mmol/L Normal 98-107 [facility] Comment on above: Performed By: #### BMP, LIVER, LIPA #### [facility] [address] [address] [address] Krys Diaz CO2 [Moles/Vol] 27.3 mmol/L Normal 21.0-32.0 [facility] Comment on above: Performed By: #### BMP, LIVER, LIPA #### [facility] [address] [address] [address] Krys Diaz Creatinine [Mass/Vol] 0.80 mg/dL Normal 0.55-1.02 [facility] Comment on above: Performed By: #### BMP, LIVER, LIPA #### [facility] [address] [address] [address] Krys Diaz EGFR-AF TUVALUAN >60 Normal >=60 [facility] Comment on above: Performed By: #### BMP, LIVER, LIPA #### [facility] [address] [address] [address] Krys Diaz EGFR-NON AF TUVALUAN >60 Normal >=60 [facility] Comment on above: Performed By: #### BMP, LIVER, LIPA #### [facility] [address] [address] [address] Krys Diaz Glucose [Mass/Vol] 100 mg/dL Normal 74-106 [facility] [place] [facility] Comment on above: Performed By: #### BMP, LIVER, LIPA #### [facility] [address] [address] [address] Krys Diaz Potassium [Moles/Vol] 3.8 mmol/L Normal 3.5-5.1 [facility] Comment on above: Performed By: #### BMP, LIVER, LIPA #### [facility] [address] [address] [address] Krys Diaz Sodium [Moles/Vol] 139 mmol/L Normal 136-145 [facility] Comment on above: Performed By: #### BMP, LIVER, LIPA #### [facility] [address] [address] [address] Krys Diaz Urea nitrogen [Mass/Vol] 8.0 mg/dL Normal 7.0-18.0 [facility] Comment on above: Performed By: #### BMP, LIVER, LIPA #### [facility] [address] [address] [address] Krys Diaz Urea nitrogen/Creati nine [Mass ratio] 10.0 mg/mg Normal [facility] Comment on above: Performed By: #### BMP, LIVER, LIPA #### [facility] [address] [address] [address] Krys Diaz Ambulatory Visit Summaryon 0 [...] adult Cholelithiasis Eczema Left ovarian cyst Normal [facility] Consent for Procedure/Surger yon 09-26-2022 Consent for Procedure/Surge ry [id number]#[id number]:127 [facility] Pre-Certification Formon Pre-Certificati on Form [id number]#1.00CD:127 Normal [facility] ED Note-Physicianon 09-19-19 23 ED Note-Physician [id number]#1.00CD:127 Normal [facility] Physician Referralon 023 Physician Referral [id number]:127 Normal [facility] US SINGLE QUAD RT UPPERon US SINGLE [...] by: SCOTTY COLINDRES Date: 2022-09-14 15:35 Normal [facility] CT ABD/PELV W CONon 09-10-19 [...] by: Amber CARRILLO Date: 2022-09-08 23:07 Normal [facility] CBC AUTO DIFFon 09-08-2022 BASO # 0.0 103/ul Normal 0.0-0.1 [facility] Comment on above: Performed By: #### CBC #### [facility] [address] [address] [address] Krys Diaz Basophils/100 WBC (Bld) 0.3 % Normal 0.2-2.0 [facility] Comment on above: Performed By: #### CBC #### [facility] [address] [address] [address] Krys Diaz EO # 0.1 103/ul Normal 0.0-0.7 [facility] Comment on above: Performed By: #### CBC #### [facility] [address] [place] [address] Dr. Krys Diaz Eosinophils/100 WBC (Bld) 0.7 % Critically low 0.9-7.0 [facility] Comment on above: Performed By: #### CBC #### [facility] [address] [place] [address] Dr. Krys Diaz Erythrocyte distribution width (RBC) [Ratio] 12.8 % Normal 11.0-15.0 [facility] Comment on above: Performed By: #### CBC #### [facility] [address] [place] [address] Dr. Krys Diaz Hematocrit (Bld) [Volume fraction] 38.1 % Normal 36.0-48.0 [facility] Comment on above: Performed By: #### CBC #### [facility] [address] [place] [address] Dr. Krys Diaz Hemoglobin (Bld) [Mass/Vol] 12.9 g/dL Normal 12.0-16.0 [facility] Comment on above: Performed By: #### CBC #### [facility] [address] [place] [address] Dr. Krys Diaz IG # 0.01 10e3/ul Normal 0.00-0.03 [facility] Comment on above: Performed By: #### CBC #### [facility] [address] [place] [address] Dr. rKys Diaz IG % 0.1 % Normal 0.0-0.5 [facility] Comment on above: Performed By: #### CBC #### [facility] [address] [place] [address] Dr. Krys Diaz LYMPH # 2.4 103/ul Normal 1.2-3.8 [facility] Comment on above: Performed By: #### CBC #### [facility] [address] [place] [address] Dr. Krys Diaz Lymphocytes/100 WBC (Bld) 35.8 % Normal 20.5-60.0 [facility] Comment on above: Performed By: #### CBC #### [facility] [address] [address] [address] Krys Diaz MANUAL DIFF REQ NO Normal [facility] Comment on above: Performed By: #### CBC #### [facility] [address] [address] [address] Krys Diaz MCH (RBC) [Entitic mass] 30.0 pg Normal 26.7-34.0 [facility] Comment on above: Performed By: #### CBC #### [facility] [address] [place] [address] Dr. Krys Diaz MCHC (RBC) [Mass/Vol] 33.9 g/dL Normal 29.9-35.2 [facility] Comment on above: Performed By: #### CBC #### [facility] [address] [place] [address] Dr. Krys Diaz MCV (RBC) [Entitic vol] 88.6 fL Normal 81.0-99.0 [facility] Comment on above: Performed By: #### CBC #### [facility] [address] [place] [address] Dr. Krys Diaz MONO # 0.5 103/ul Normal 0.3-0.8 [facility] Comment on above: Performed By: #### CBC #### [facility] [address] [place] [address] Dr. Krys Diaz Monocytes/100 WBC (Bld) 7.0 % Normal 1.7-12.0 [facility] Comment on above: Performed By: #### CBC #### [facility] [address] [place] [address] Dr. Krys Diaz NEUT # 3.7 103/ul Normal 1.4-6.5 [facility] Comment on above: Performed By: #### CBC #### [facility] [address] [place] [address] Dr. Krys Diaz Neutrophils/100 WBC (Bld) 56.1 % Normal 43.0-75.0 [facility] Comment on above: Performed By: #### CBC #### [facility] [address] [address] [address] Krys Diaz Platelet mean volume (Bld) [Entitic vol] 8.9 fL Critically low 9.5-13.5 [facility] Comment on above: Performed By: #### CBC #### [facility] [address] [address] [address] Krys Diaz PLT 287 103/ul Normal 150-450 [facility] Comment on above: Performed By: #### CBC #### [facility] [address] [place] [address] Dr. Krys Diaz RBC 4.30 106/ul Normal 4.20-5.40 [facility] Comment on above: Performed By: #### CBC #### [facility] [address] [place] [address] Dr. Krys Diaz WBC 6.7 103/ul Normal 4.0-11.0 [facility] Comment on above: Performed By: #### CBC #### [facility] [address] [place] [address] Dr. Krys Diaz ER URINE PROFILEon 3 Bilirubin Ql (U) SMALL Abnormal NEGATIVE [facility] Comment on above: Performed By: #### YAHIR ERUR #### [facility] [address] [place] [address] Dr. Krys Diaz Clarity (U) CLEAR Normal CLEAR [facility] Comment on above: Performed By: #### YAHIR ERUR #### [facility] [address] [place] [address] Dr. Krys Diaz Color (U) YELLOW Normal YELLOW [facility] Comment on above: Performed By: #### YAHIR ERUR #### [facility] [address] [place] [address] Dr. Krys LEDESMA A micrscopic examina tion will be performed if indicated. Normal [facility] Comment on above: Performed By: #### YAHIR ERUR #### [facility] [address] [place] [address] Dr. Krys Diaz Glucose Ql (U) Negative Normal NEGATIVE [facility] Comment on above: Performed By: #### YAHIR, ERUR #### [facility] [address] [place] [address] Dr. Krys Diaz Hemoglobin Ql (U) LARGE Abnormal NEGATIVE [facility] Comment on above: Performed By: #### YAHIR, ERUR #### [facility] [address] [place] [address] Dr. Krys Diaz Ketones Ql (U) Negative Normal NEGATIVE [facility] Comment on above: Performed By: #### YAHIR, ERUR #### [facility] [address] [place] [address] Dr. Krys Diaz LEUKOCYTES Negative Normal NEGATIVE [facility] Comment on above: Performed By: #### YAHIR, ERUR #### [facility] [address] [place] [address] Dr. Krys Diaz Nitrite Ql (U) Negative Normal NEGATIVE [facility] Comment on above: Performed By: #### YAHIR ERUR #### [facility] [address] [place] [address] Dr. Krys Diaz pH (U) 5.5 [pH] Normal 5-9 [facility] Comment on above: Performed By: #### YAHIR ERUR #### [facility] [address] [place] [address] Dr. Krys Diaz Protein (U) [Mass/Vol] 30 mg/dL Abnormal NEGATIVE/ TRACE [facility] Comment on above: Performed By: #### YAHIR ERUR #### [facility] [address] [place] [address] Dr. Krys Diaz SPEC GRAVITY >=1.030 Abnormal 1.005-<=1.02 5 [facility] Comment on above: Performed By: #### YAHIR ERUR #### [facility] [address] [place] [address] Dr. Krys Diaz UR MICRO IND INDICATED Normal [facility] Comment on above: Performed By: #### YAHIR ERUR #### [facility] [address] [place] [address] Dr. Krys Diaz Urobilinogen Qn (U) 1.0 {Paramjit'U}/dL Normal 0.2 - 1.0 [facility] Comment on above: Performed By: #### UMICRO, ERUR #### [facility] [address] [place], [place] [address] Dr. Krys Diaz LIPASEon 09-08-2022 Lipase [Catalytic activity/Vol] 82.0 U/L Normal 73.0-393.0 [facility] Comment on above: Performed By: #### CMP, LIPA ####[facility] [address] [address]DrMinerva Diaz PREG HCG QUALon 09-08-2022 , QUAL Negative Normal NEGATIVE [facility] Comment on above: Performed By: #### PREG ####[facility] [address] [address]DrMinerva Diaz PROF 14(COMP METB)on 023 Albumin [Mass/Vol] 3.7 g/dL Normal 3.4-5.0 [facility] Comment on above: Performed By: #### CMP, LIPA ####[facility] [address] [address]DrMinerva Diaz Albumin/Globuli n [Mass ratio] 1.1 {ratio} Normal [facility] Comment on above: Performed By: #### CMP, LIPA ####[facility] [address] [address]DrMinerva Diaz ALP [Catalytic activity/Vol] 67 U/L Normal 46-116 [facility] Comment on above: Performed By: #### CMP, LIPA ####[facility] [address] [address]DrMinerva Diaz ALT [Catalytic activity/Vol] 38 U/L Normal 14-59 [facility] Comment on above: Performed By: #### CMP, LIPA ####[facility] [address] [address]DrMinerva Diaz Anion gap [Moles/Vol] 12.4 mmol/L Normal [facility] Comment on above: Performed By: #### CMP, LIPA ####[facility] [address] [address]Dr. Krys Diaz AST [Catalytic activity/Vol] 19 U/L Normal 15-37 [facility] Comment on above: Performed By: #### CMP, LIPA ####[facility] [address] [address]Dr. Krys Diaz Bilirubin [Mass/Vol] 0.4 mg/dL Normal 0.2-1.0 [facility] Comment on above: Performed By: #### CMP, LIPA ####[facility] Y[address] [place], [place] [address]Dr. Krys Diaz Calcium [Mass/Vol] 8.6 mg/dL Normal 8.5-10.1 [facility] Comment on above: Performed By: #### CMP, LIPA ####[facility] Dgoaefmesy[address] [place], [place] [address]Dr. Krys Diaz Chloride [Moles/Vol] 105 mmol/L Normal 98-107 [facility] Comment on above: Performed By: #### CMP, LIPA ####[facility] Rdzipaycyg[address] [place], [place] [address]Dr. Krys Diaz CO2 [Moles/Vol] 25.9 mmol/L Normal 21.0-32.0 [facility] Comment on above: Performed By: #### CMP, LIPA ####[facility] I[address] [place], [place] [address]Dr. Krys Diaz Creatinine [Mass/Vol] 0.86 mg/dL Normal 0.55-1.02 [facility] Comment on above: Performed By: #### CMP, LIPA ####[facility] Odigcpdhsg[address] [place], [place] [address]Dr. Krys Diaz EGFR-AF TUVALUAN >60 Normal >=60 [facility] Comment on above: Performed By: #### CMP, LIPA ####[facility] [address]yit[address] [place], [place] [address]Dr. Krys Diaz EGFR-NON AF TUVALUAN >60 Normal >=60 [facility] Comment on above: Performed By: #### CMP, LIPA ####[facility] [address] [address]Dr. Krys Diaz Globulin (S) [Mass/Vol] 3.5 g/dL Normal [facility] Comment on above: Performed By: #### CMP, LIPA ####[facility] [address] [address]Dr. Krys Diaz Glucose [Mass/Vol] 102 mg/dL Normal 74-106 [facility] Comment on above: Performed By: #### CMP, LIPA ####[facility] Sfolywkges[address] [place], [place] [address]Dr. Krys Diaz Potassium [Moles/Vol] 3.3 mmol/L Critically low 3.5-5.1 [facility] Comment on above: Performed By: #### CMP, LIPA ####[facility] J[address]oeff[address] [place], [place] [address]Dr. Krys Diaz Protein [Mass/Vol] 7.2 g/dL Normal 6.4-8.2 [facility] Comment on above: Performed By: #### CMP, LIPA ####[facility] Lfcx[address] [place], [place] [address]Dr. Krys Diaz Sodium [Moles/Vol] 140 mmol/L Normal 136-145 [facility] Comment on above: Performed By: #### CMP, LIPA ####[facility] Tfvx[address]ie[address] [place], [place] [address]Dr. Krys Diaz Urea nitrogen [Mass/Vol] 6.0 mg/dL Critically low 7.0-18.0 [facility] Comment on above: Performed By: #### CMP, LIPA ####[facility] Ux[address]fch[address] [place], [place] [address]Dr. Krys Diaz Urea nitrogen/Creati nine [Mass ratio] 7.0 mg/mg Normal [facility] Comment on above: Performed By: #### CMP, LIPA ####[facility] [address] [address]Dr. Krys Diaz URINE MICROSCOPIC ONLYon BACTERIA TRACE Abnormal NONE SEEN [facility] Comment on above: Performed By: #### YAHIR, ERUR #### [facility] [address] [place] [address] Dr. Krys Diaz Bacteria identified Cx Nom (U) NOT INDICATED Normal [facility] Comment on above: Performed By: #### YAHIR, ERUR #### [facility] [address] [place] [address] Dr. Krys Diaz CAST NONE SEEN Normal NONE SEEN [facility] Comment on above: Performed By: #### YAHIR, ERUR #### [facility] [address] [place] [address] Dr. Krys Diaz Crystals LM Nom (Urine sed) NONE SEEN Normal NONE SEEN [facility] Comment on above: Performed By: #### YAHIR, ERUR #### [facility] [address] [place] [address] Dr. Krys Diaz Epithelial cells LM Ql (Urine sed) MODERATE Abnormal NONE SEEN /RARE [facility] Comment on above: Performed By: #### YAHIR, ERUR #### [facility] [address] [place] [address] Dr. Krys Diaz MUCOUS MODERATE Abnormal NONE SEEN [facility] Comment on above: Performed By: #### YAHIR, ERUR #### [facility] [address] [place] [address] Dr. Krys Diaz RBC 20-50 Abnormal 0-2 [facility] Comment on above: Performed By: #### YAHIR, ERUR #### [facility] [address] [place] [address] Dr. Krys Diaz WBC NONE SEEN Normal NONE SEEN [facility] Comment on above: Performed By: #### YAHIR, ERUR #### [facility] [address] [place] [address] Dr. Krys Diaz Vital Signs Date Time Vital Sign Value Performing Clinician Kiko stroud 09-26-2022 10:37-0400 Blood Pressure Location Po SINGHL [facility] [place] 09-26-2022 10:37-0400 Diastolic blood pressure 76 mm[Hg] Po NILL [facility] [place] 09-26-2022 10:37-0400 Heart rate 80 /min Po NILL [facility] [place] 09-26-2022 10:37-0400 Respiratory rate 16 /min Po NILL [facility] [place] 09-26-2022 10:37-0400 Systolic blood pressure 112 mm[Hg] Po NILL [facility] Encounters Encounter Date Encounter Type Care Provider Facility Start: 06-10-2024 End: 06-10-2024 ambulatory [facility] Start: 05-03-2024 End: 05-03-2024 ambulatory [facility] Start: 2023 End: 2023 ambulatory ANDREA KASPER Not Available Start: 11-12-2022 End: 11-13-2022 ambulatory Po MENCHACA Facility:[facility] Start: 11-12-2022 End: 11-12-2022 Patient encounter procedure Po MENCHACA [facility] Start: 10-29-2022 End: 10-30-[address] NGUYEN ZAMORANO . Facility:[facility] Start: 10-23-2022 Encounter for other preprocedural examination DR PO MENCHACA . [facility] Start: 10-21-2022 End: 10-22-[address] [...] End: 09-26-2022 Patient encounter procedure Po MENCHACA [facility] [place] Start: 09-17-2022 ambulatory Po MENCHACA Facility:[facility] [...] mRNA BNT-162b2 vax Po MENCHACA [facility] [place] [facility] 07-13-2020 SARS-CoV-2 (COVID-19 ) mRNA BNT-162b2 vax Po MENCHACA [facility] [place] NEGATED: Highlighted row has not occurred!09-26-2022 influenza virus vaccine, unspecified formulation Po MENCHACA [facility] [place] Payers Date Payer Category Payer Unknown [id number] 1990 Unknown [id number] 2.16.84 [id number] 1990 Unknown [id number] 2.16.84 [id number] 1990 Unknown [id number] 2.16.84 [id number] 1990 Unknown [id number] 2.16.84 [id number] 1990 Unknown [id number] 2.16.84 [id number] 1990 Unknown [id number] 2.16.84 [id number] 1990 Unknown [id number] 2.16.84 [id number] 1990 Unknown [id number] 2.16.8 [id number] 1990 Unknown [id number] 2.16.8 [id number] 1990 Unknown [id number] 2.16.8 [id number] 1990 Unknown [id number] 2.16.8 [id number] 1990 Unknown [id number] 2.16.8 [id number] 1990 Unknown [id number] 2.16.84 [id number] Social History Date Type Detail Facility Start: 09-26-2022 Tobacco smoking status Never s moked tobacco (finding) [facility] [place] Tobacco smoking status Never [facility] [place] Sex Assigned At Female [facility] Functional Status Date Assessment Result Facility 09-26-2022 Functional Status N/A [facility] [place] Progress note 06-10-2024 Note Date & Type [...] is complete Briseida Carrasquillo MD Interventional Cardiology [facility] Progress note 05-03-2024 Note Date & Type [...] or concerns. Briseida Carrasquillo MD Interventional Cardiology [facility] Clinical Note 10-29-2022 Note Date & Type Note Facility 10-29-2022 Note OPERATIVE NOTE OPERATION DATE: 10/29/2022 PREOPERATIVE DIAGNOSIS: Symptomatic cholelithiasis. POSTOPERATIVE DIAGNOSIS: Symptomatic cholelithiasis with chronic cholecystitis. PROCEDURE: Laparoscopic cholecystectomy. SURGEON: Po Menchaca M.D. MOLD CHANGER: NAYA Denise ANESTHESIA: General endotracheal. ESTIMATED BLOOD [...] of gallbladder. CC: Patient's family physician. [facility] Clinical Note 10-01-2022 Note Date & [...] good condition. CC: Nguyen Zamorano M.D. [facility] Clinical Note 09-26-2022 Note Date & Type Note Facility 09-26-2022 Note Chief Complaint consultation for abdominal pain HPI Staff 31 year old female presents on consultation for Dr. Zamorano for abdominal pain. Presented to [facility] ED 09/08 with RUQ and mid back [...] ate; also frequent loose stools; seen in [place] [facility] 09/08/22; normal labs, abd/pelvic ct scan [...] MRI Cholangiogram Panc (more content not included)... [facility] Comment on above: Result Comment: Elec tronically Signed By: NIKOLAI HENRY, Po Moore\Date and Time Signed: 09/26/22 13:27 EDT Evaluation + Plan note 09-26-2022 Note Date & Type Note Facility 09-26-2022 Evaluation + Plan note Diagnostic Tests PendingCBC w/ Auto Diff 09/26/22Basic Metabolic Panel 09/26/22Hepatic Function Panel 09/26/22Lipase Level 09/26/22 [facility] [place] Hospital course Narrative Note Date & Type Note Facility Hospital course Narrative No data available for this section [facility] Discharge instructions Note Date & Type Note Facility Hospital Discharge instructions No data available for this section [facility] [place] Progress note Note Date & Type Note Facility Progress note No data available for this section [facility] [place] Summary Purpose Family History No Family History Records FoundNo Family History Records FoundNo Family History Records FoundNo Family History Records Found Advance Directives No Advanced Directives Records FoundNo Advanced Directives Records FoundNo Advanced Directives Records FoundNo Advanced Directives Records Found Additional Source Comments Patient Care team informatio n (unrecognized section and content) Personnel Name: Nguyen Zamorano MD Address: Address: [address] [place] [address] [place], [place] [address] Personnel Name: Nguyen Zamorano MD Address: Address: [address] [place], [place] [address] [address]- Personnel Name: Nguyen Zamorano MD Address: Address: [address] [place] [address] INFORMATION SOURCE (unrecogn ized section and content) DATE CREATED AUTHOR 11/08/2022 [facility] DATE CREATED AUTHOR AUTHOR'S ORGANIZ ATION 12/01/2022 [facility] DATE CREATED AUTHOR AUTHOR'S ORGANIZ ATION 2023 [facility] DATE CREATED AUTHOR AUTHOR'S ORGANIZ ATION 07/11/2024 [facility] FOR RECORDS PERTAINING TO PATIENTS WHO ARE [...] BE BASED ON THE PRIMARY CLINICAL RECORDS. [facility] [employer] provides no warranty or guarantee of the accuracy or completeness of information in this document.
[2024-08-17 11:17] LABS: Anion Gap 13.3; BUN Creatinine Ratio 15.5; Calcium 9.4 mg/dL (8.5-10.1); Chloride 103 mmol/L (98-107); Estimated GFR (African America >60 (>=60 mL/min/1.73m^2); Estimated GFR (Non-African Ame >60 (>=60 mL/min/1.73m^2); Glucose 119 mg/dL (74-106); Potassium 4.3 mmol/L (3.5-5.1); Sodium 139 mmol/L (136-145)
== END 2024-08-17 08:16 | disposition home or self-care (01) ==
LOC: LAB 08:17
PROVIDERS: PCP Family Medicine; Visit Provider Family Medicine
DX: E87.6 Hypokalemia (principal)
CPT/HCPCS: 36415; 80048

== ENCOUNTER 2024-09-30 08:47 | Outpatient (OUT) | payer OTHER, SELFPAY ==
--- NOTE | 2024-09-30 08:50 | CT_ITS ---
The [address] [address] Patient Name: FRANKLIN MOROCHO MRN: [id number] date: 1990 Sex: F Assigned Patient Location: CT Current Patient Location: CT Accession/Order Number: [id number] Exam Date: 09/30/2024 09:37 Report Date: 09/30/2024 09:39 At the request of: LLOYD NEWELL Procedure: CT chest high res CT CHEST WITHOUT IV CONTRAST: High-resolution protocol. CLINICAL HISTORY: Shortness Of Breath COMPARISON: None TECHNIQUE: Spiral images were obtained through the chest without IV contrast. High-resolution protocol was utilized with both supine and prone imaging. This CT exam was performed using one or more following dose reduction techniques: Automated exposure control, adjustment of the mA and/or kV according to patient size, or use of iterative reconstruction technique. FINDINGS: Mediastinum:Thoracic aorta appears normal in caliber. Pulmonary trunk appears nondilated. No pericardial effusion or lymphadenopathy. The esophagus is grossly unremarkable. Lungs:No consolidation pneumothorax pleural effusion. No nodule. No septal thickening, bronchiectasis, honeycombing or groundglass opacities to suggest underlying interstitial lung disease. Expiratory phase imaging demonstrates some degree of air trapping. Abd:No acute findings. Soft tissues/Bones: No acute findings. Osseous structures demonstrate degenerative change. CT/CT chest high res IMPRESSION: No CT evidence of interstitial lung disease. No acute process is seen. Impression dictated by: Waldemar Blackwell Jr., D.O. 09/30/2024 9:39 AM Dictation Location: [facility] Electronically authenticated by: [id number] Y Date: 09/30/2024 09:39
== END 2024-09-30 08:48 | disposition home or self-care (01) ==
LOC: CT 08:47
PROVIDERS: PCP Family Medicine; Visit Provider Internal Medicine Rheumatology
DX: R06.02 Shortness of breath (principal)
CPT/HCPCS: 71250

== ENCOUNTER 2024-12-08 08:09 | Outpatient (OUT) | payer OTHER, SELFPAY ==
--- OUTSIDE RECORDS SUMMARY | 2024-11-01 06:16 | XMS_ITS ---
Author Organization [facility] [place] Address [address] [place] [address] Care Team Providers Care Reporting Process Consultant Name Role Phone Lona Constantine Primary Care Provider REASON FOR VISIT UTI Medications Medication SIG (Take, Route, Fr equency, Duration) Notes Start Date End Date Status Bactrim DS 800-160 MG 1 tablet Orally bi d for 10 days 11/01/2024 Active Pyridium 200 MG 1 tablet after meals Orally Three times a day for 2 days 11/01/2024 Act corazon Encounters Encounter Location Date Provider Diagnosis [facility] [address] [place] [address] 11/01/2024 Constantine Zamorano Plan Of Treatment Medication Medication Name Sig Start Date Stop Date Notes Bactrim DS 800-160 MG 1 tablet Orally bid for 10 days 07/2024 Pyridium 200 MG 1 tablet after meals Orally Three times a day for 2 days 11/01/2024 Next Appt Details Provider Name:Esau foster, 01/25/2025 08:30:00 AM, [address] [facility] [address], [place], [address], Progress Notes * Jim MOROCHOOB:1990 (34 yo F)Acc No.[id number]:11/01/2024 Patient: Cory BEATTY :1990 A ge:34 Y S ex:Female Address:[address] [place] [address], [place] [address] * Refills Start Bactrim DS Tablet, 800-160 MG, Orally, 20 Tablet, 1 tablet, bid, 10 days, Refills=0 Start Pyridium Tablet, 200 MG, Orally, 9, 1 tablet after meals, Three times a day, 2 days * true * Date: Generated for Ilda mendoza/Rocio/Clarissaitting on: 0 12/08/2024 08:12 AM EDT
--- OUTSIDE RECORDS SUMMARY | 2024-11-11 07:45 | XMS_ITS ---
Author Organization [facility] in [place] Address [address] [place] [address] Care Team Providers Care Nc Machinist Name Role Phone Constantine Zamorano Primary Care Provider Esau Fu Unavailable [phone] Allergies Allergen (clinical drug ingredient) Drug/Non Drug Allergy documented on EMR Reaction Allergy Type Onset Date Status hydroxychloroquine Hydroxychloroquine hives Vin g Allergy Active prednisone predniSONE Unknown Drug Allergy Active ciprofloxacin Ciprofloxacin nausea and vomiting Drug Allergy Active Results Component Value Reference Range Notes SED RATE and CRP Reviewed date:11/13/2024 02:32:00 PM Interpretation: Performing Lab:[facility], [address], [place], [place], [id number] Notes/Report: FACILITY: [facility] [id number] SED RATE WEST. 13 (0 - 25) MM/HR CRP EXTENDED RANGE 2.14 (0.00 - 5.00) MG/L MTX PANEL (CBC, ALB,ALT, AST , ALK ,CREA w/GFR CKD-EPI)) Reviewed date:11/15/2024 04:10:03 PM Interpretation: Performing Lab:[facility], [address], [place], [place], [id number] [phone] Notes/Report: FACILITY: [facility] [id number] WBC 6.01 (3.80 - 10.60) x10^3ul HEMOGLOBIN 11.4 (12.0 - 16.0) G/DL HEMATOCRIT 34.8 (37.0 - 47.0) % MCH 28.9 (27.0 - 33.0) PG MCHC 32.8 (30.0 - 37.0) G/DL ALBUMIN 4.5 (3.5 - 5.0) G/DL ALT (SGPT) 75 (1 - 35) U/L AST (SGOT) 43 (15 - 46) U/L ALK PHOS 65 (38 - 126) U/L CREATININE, BLOOD 0.78 (0.52 - 1.04) MG/DL GFR by CKD-EPI 102.8 (60.0) ML/M1.7 RBC 3.95 (4.20 - 5.40) x10^6ul MCV 88.1 (81.0 - 99.0) fl PLT 325 (130 - 400) x10^3ul REASON FOR VISIT -4 Month Follow Up-, joint pain Medications Medication SIG (Take, Route, Frequency, Duration) Notes Start Date End Date Status Bactrim DS 800-160 MG 1 tablet Orally bi d for 10 days 11/01/2024 Not-Taking dexAMETHasone 1 MG TAKE 1 TABLET BY JANE TWICE A DAY FOR 30 DAYS for 30 Not-Taking Folic Acid 1 MG 1 tablet Orally Once a day for 90 days 09/09/2024 Active Methotrexate Sodium 2.5 MG 6 Tablets Ora lly once weekly for 84 days 09/09/2024 Active Pyridium 200 MG 1 tablet after meals Orally Three times a day for 2 days 11/01/2024 Not-Taking Social History Tobacco Use: Social History Observation Description Date Details (start date - stop date) Never Smoker NA - NA Tobacco Control (Standard) Question Answer Notes Tobacco use: Nonsmoker Vital Signs Blood pressure systolic 110 mm Hg 11/12/19 25 Blood pressure diastolic 70 mm Hg 025 Heart Rate 60 /min 11/11/2024 Respiratory Rate 18 /min 11/11/2024 Height 62 in 11/11/2024 Weight 225 lbs 11/11/2024 BMI 41.15 kg/m2 11/11/2024 Encounters Encounter Location Date Provider Diagnosis [facility] Rheumatology [address] [place] [address] 11/11/2024 Esau Fu Systemic involvement of connective tissue, unspecified M35.9 ; Inflammatory polyarthropathy M06.4 ; Other specified abnormal immunological findings in serum R76.8 ; termite treater (current) use of antimetabolite agent Z79.631 and Elevated liver enzymes R74.8 Assessments Encounter Date Diagnosis (ICD Code) Assessment Notes Treatment Notes Treatment Clinical Notes Section Notes 11/11/2024 Systemic involvement of connective tissue, unspecified (ICD-10 - M35.9) # Inflammatory like joint pain with positive GAGE 1:320 nucleolar and centromere pattern -There is concern for underlying lupus especially being a young female. -Workup has been negative besides positive GAGE -Currently on MTX 15 mg weekly / folic acid 1 mg daily. Overall she is feeling better. Off prednisone without relapse of her symptoms. 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 Continue MTX 15 mg weekly and folic acid 1 mg daily. Monitor liver enzymes - Follow up in 2 months This is a moderately complex case with review of 3 unique tests and prescription drug management. 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 Goals of treatment are to decrease symptoms of joint pain, swelling and stiffness and to minimize in/or prevent disease progression including further joint damage. 11/11/2024 Inflammatory polyarthropathy (ICD-10 - M06.4) # Inflammatory like joint pain with positive GAGE 1:320 nucleolar and centromere pattern -There is concern for underlying lupus especially being a young female. -Workup has been negative besides positive GAGE -Currently on MTX 15 mg weekly / folic acid 1 mg daily. Overall she is feeling better. Off prednisone without relapse of her symptoms. 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 Continue MTX 15 mg weekly and folic acid 1 mg daily. Monitor liver enzymes - Follow up in 2 months This is a moderately complex case with review of 3 unique tests and prescription drug management. 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 Goals of treatment are to decrease symptoms of joint pain, swelling and stiffness and to minimize in/or prevent disease progression including further joint damage. 11/11/2024 Other specified abnormal immunological findings in serum (ICD-10 - R76.8) # Inflammatory like joint pain with positive GAGE 1:320 nucleolar and centromere pattern -There is concern for underlying lupus especially being a young female. -Workup has been negative besides positive GAGE -Currently on MTX 15 mg weekly / folic acid 1 mg daily. Overall she is feeling better. Off prednisone without relapse of her symptoms. 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 Continue MTX 15 mg weekly and folic acid 1 mg daily. Monitor liver enzymes - Follow up in 2 months This is a moderately complex case with review of 3 unique tests and prescription drug management. 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 Goals of treatment are to decrease symptoms of joint pain, swelling and stiffness and to minimize in/or prevent disease progression including further joint damage. 11/11/2024 shelter (current) use of antimetabolite agent (ICD-10 - Z79.631) # Inflammatory like joint pain with positive GAGE 1:320 nucleolar and centromere pattern -There is concern for underlying lupus especially being a young female. -Workup has been negative besides positive GAGE -Currently on MTX 15 mg weekly / folic acid 1 mg daily. Overall she is feeling better. Off prednisone without relapse of her symptoms. 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 Continue MTX 15 mg weekly and folic acid 1 mg daily. Monitor liver enzymes - Follow up in 2 months This is a moderately complex case with review of 3 unique tests and prescription drug management. 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 Goals of treatment are to decrease symptoms of joint pain, swelling and stiffness and to minimize in/or prevent disease progression including further joint damage. 11/11/2024 Elevated liver enzymes (ICD-10 - R74.8) # Inflammatory like joint pain with positive GAGE 1:320 nucleolar and centromere pattern -There is concern for underlying lupus especially being a young female. -Workup has been negative besides positive GAGE -Currently on MTX 15 mg weekly / folic acid 1 mg daily. Overall she is feeling better. Off prednisone without relapse of her symptoms. 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 Continue MTX 15 mg weekly and folic acid 1 mg daily. Monitor liver enzymes - Follow up in 2 months This is a moderately complex case with review of 3 unique tests and prescription drug management. 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 Goals of treatment are to decrease symptoms of joint pain, swelling and stiffness and to minimize in/or prevent disease progression including further joint damage. Plan Of Treatment Next Appt Details Follow Up: 2 Months, Reason: Provider Name:Esau foster, 01/25/2025 08:30:00 AM, [address], [facility], [place], [address], Progress Notes * Jim MOROCHOOB:1990 (34 yo F)Acc No.[id number]:11/11/2024 Follow Up Patient: Cory BEATTY Provider: Nichole Fu DO :1990 A ge:34 Y S ex:Female Date:11/11/2024 Address:[address] [place] [address], [place] Pcp:Constantine Zamorano Check In:11:31 AM ESTCharck Herberth ut:11:59 AM EST Subjective: * Chief Complaints: * - 4 Month Follow Up-Joint pain * HPI: G eneral: This is a 34-year-old Citizen [place] female with pMHx significant for GERD and insomnia comes in for follow up on positive GAGE and concern for lupus. She is currently on Dexamethasone 1 mg daily, MTX 15 mg weekly and folic acid 1 mg daily. - This week she is doing very well. No joint pains today. Some tightness in her fingers. No joint swelling. She is off dexamethasone for 1 week without any relapse of her symptoms. She is following a plant based diet totally. - Falls in the past year - denied. CARDIOLOGY SPECIALIST: no pregnancies. Not sexually active. Not on control. Social: Smoking - denied. Alcohol - denied. Drugs - denied. Occupation - works as an flight deck officer. Vaccinations: COVID - got in the past. Flu - denied. * ROS: 1 0-point ROS reviewed. Pertinent findings are recorded in the HPI. * Active Problem List R10.32 Abdominal pain, LLQ Modified On:09/15/2022 Status:confirmed N83.202 Ovarian cyst, left Modified On:09/15/2022 Status:confirmed M26.629 TMJ syndrome Modified On:09/15/2022 Status:confirmed U07.1 COVID-19 Modified On:09/15/2022 Status:confirmed L30.9 Eczema Modified On:09/15/2022 Status:confirmed J20.9 Acute bronchitis Modified On:09/15/2022 Status:confirmed K80.20 Gallstones Modified On:09/16/2022 Status:confirmed K80.20 Calculus of gallblad nayla without cholecystitis without obstruction Modified On:09/17/2022 Status:confirmed R10.11 Right upper quadrant pain Modified On:10/02/2022 Status:confirmed K44.9 Diaphragmatic hernia without obstruction or gangrene Modified On:10/08/2022 Status:confirmed K29.60 Other gastritis with out bleeding Modified On:10/08/2022 Status:confirmed H65.90 Serous otitis media Modified On:04/06/2023 Status:confirmed J21.9 Acute bronchiolitis Modified On:09/04/2023 Status:confirmed Z00.00 Well adult Modified On:09/04/2023 Status:confirmed G47.00 Insomnia Modified On:02/15/2024 Status:confirmed M25.50 Arthralgia Modified On:08/15/2024U Status:confirmed R76.8 Positive GAGE (antinu clear antibody) Modified On:08/16/2024 Status:confirmed M06.4 Inflammatory polyart hropathy Modified On:08/26/2024U Status:confirmed M35.9 Systemic involvement of connective tissue, unspecified Modified On:09/09/2024 Status:confirmed * Medical History: * Surgical History: E GD- Nill 10/01/22CHOLECYSTECTOMY 10/29/22 * Hospitalization/Major Diagno stic Procedure: s ee above * Family History: F ather: alive 61 yrs, diagnosed with Unspecified polyarthropathy or polyarthritis, pelvic region and thigh. M other: 55 yrs. S kathy(s): alive 28 yrs. Father living. Mother due to heart attack. Has 1 living sister. Family history of arthritis. * Social History: T obacco Use: T obacco Control (Standard) T obacco use: N onsmoker * Medications: T akingFolic Acid 1 MG Tablet 1 tablet Orally Once a day Methotrexate Sodium 2.5 MG Tablet 6 Tablets Orally once weekly Taking Folic Acid 1 MG Tablet 1 tablet Orally Once a day Taking Methotrexate Sodium 2.5 MG Tablet 6 Tablets Orally once weekly Not-Taking/PRNBactrim DS(Sulfamethoxazole-Trimethoprim) 800-160 MG Tablet 1 tablet Orally bid dexAMETHasone 1 MG Tablet TAKE 1 TABLET BY MOUTH TWICE A DAY FOR 30 DAYS Pyridium(Phenazopyridine HCl) 200 MG Tablet 1 tablet after meals Orally Three times a day Medication List reviewed and reconciled with the patientNot-Taking/PRN Bactrim DS(Sulfamethoxazole-Trimethoprim) 800-160 MG Tablet 1 tablet Orally bid Not-Taking/PRN dexAMETHasone 1 MG Tablet TAKE 1 TABLET BY MOUTH TWICE A DAY FOR 30 DAYS Not-Taking/PRN Pyridium(Phenazopyridine HCl) 200 MG Tablet 1 tablet after meals Orally Three times a day Medication List reviewed and reconciled with the patient * Allergies: C iprofloxacin: nausea and vomitingpredniSONEHydroxychloroquine: hivesno[Allergies Verified] Objective: * Vitals: W t:225lbs, Ht: 62 in, BP:110/70mm Hg, HR:60/min, RR:18/min, BMI:41.15Index, Ht- cm: 157.48 cm, Wt-k.06 kg. * Examination: G eneral Examination: GENERAL APPEARANCE: n ot in apparent distress, cooperative, answers all questionsappropriately. HEENT: N ormocephalic, atraumatic, oral mucosa pink, moist, and without lesions. EYES: N o scleral icterus or conjunctival injection seen. NECK: S oft, supple. PULMONARY: C TA bilaterally, no wheezing, crackles, rhonchi, or rales heard. CARDIO: R RR, S1/S2, no murmurs heard. ABDOMEN: n on distended, soft, non tender, +BS. EXTREMITIES: R adial and pedal pulses +2 bilaterally, no LE edema. NEUROLOGIC: m obility and sensation intact in all extremities, no focal deficits. PSYCH: a ppropriate mood and affect. INTEGUMENTARY: n o rashes or lesions seen, warm, non erythematous. R heumatology: MSK: n o synovitis of the hands or wrists, full ROM of the elbows and shoulders bilaterally, no pain down palpation of the spine, good ROM of the hips bilaterally, no crepitus or effusions of the knees, no synovitis of the ankles or feet. ? Assessment: * Assessment: 1. S ystemic involvement of connective tissue, unspecified - M35.9 (Primary) 2 . I nflammatory polyarthropathy - M06.4 3 . O ther specified abnormal immunological findings in serum - R76.8 4 . L remington term (current) use of antimetabolite agent - Z79.631 5 . E levated liver enzymes - R74.8 # Inflammatory like joint pa in with positive GAGE 1:320 nucleolar and centromere pattern -There is concern for underlying lupus especially being a young female. -Workup has been negative besides positive GAGE -Currently on MTX 15 mg weekly / folic acid 1 mg daily. Overall she is feeling better. Off prednisone without relapse of her symptoms. 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 Continue MTX 15 mg weekly and folic acid 1 mg daily. Monitor liver enzymes - Follow up in 2 months This is a moderately complex case with review of 3 unique tests and prescription drug management. 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 Goals of treatment are to decrease symptoms of joint pain, swelling and stiffness and to minimize in/or prevent disease progression including further joint damage. Plan: * Treatment: * Labs: * L ab: SED RATE and CRP (Collection Date & Time - 11/11/2024 11:55 AM) L ab: MTX PANEL (CBC, ALB,ALT, AST, ALK ,CREA w/GFR CKD-EPI)) (Collection Date & Time - 11/11/2024 11:55 AM) * Procedure Codes: G 2211 Complex e/m visit add on * Preventive Medicine: Screenings/Counseling: B IL ACTION PLAN Above Normal BMI Follow-up D ietary management education, guidance, and counseling * Follow Up: 2 Months * * Sign off status: Completed Visit Status: C HK (Check Out) true * Provider: Nichole Fu DO Date: 0 11/11/2024 Generated for Ilda mendoza/Rocio/eTransmitting on: 0 12/08/2024 08:12 AM EDT History and Physical Notes * HPI (History of Present Illness) Category Sub-Category Detail Notes Category Not es General This is a 34-year-old Citizen [place] female with pMHx significant for GERD and insomnia comes in for follow up on positive GAGE and concern for lupus. She is currently on Dexamethasone 1 mg daily, MTX 15 mg weekly and folic acid 1 mg daily. - This week she is doing very well. No joint pains today. Some tightness in her fingers. No joint swelling. She is off dexamethasone for 1 week without any relapse of her symptoms. She is following a plant based diet totally. - Falls in the past year - denied. CARDIOLOGY SPECIALIST: no pregnancies. Not sexually active. Not on control. Social: Smoking - denied. Alcohol - denied. Drugs - denied. Occupation - works as an flight deck officer. Vaccinations: COVID - got in the past. Flu - denied. Examination Category Sub-Category Detail Notes Category Not es Rheumatology MSK: no synovitis of the hands or wrists, full ROM of the elbows and shoulders bilaterally, no pain down palpation of the spine, good ROM of the hips bilaterally, no crepitus or effusions of the knees, no synovitis of the ankles or feet General Examination GENERAL APPEARANCE: not in apparent distress, cooperative, answers all questions appropriately EYES: No scleral icterus o r conjunctival injection seen NECK: Soft, supple CARDIO: RRR, S1/S2, no murmu rs heard ABDOMEN: non distended, soft, non tender, +BS NEUROLOGIC: mobility and sensati on intact in all extremities, no focal deficits EXTREMITIES: Radial and pedal pul ses +2 bilaterally, no LE edema PSYCH: appropriate mood and affect PULMONARY: CTA bilaterally, no wheezing, crackles, rhonchi, or rales heard HEENT: Normocephalic, atrau matic, oral mucosa pink, moist, and without lesions INTEGUMENTARY: no rashes or lesions seen, warm, non erythematous RHEUM: MSK:
--- OUTSIDE RECORDS SUMMARY | 2024-11-15 12:09 | XMS_ITS ---
Author Organization [facility] in [place] Address [address] [place] [address] Care Team Providers Care Grain Spouter Name Role Phone Constantine Zamorano Primary Care Provider Esau Fu [phone] REASON FOR VISIT lab results Encounters Encounter Location Date Provider Diagnosis [facility] Rheumatology [address] [place] [address] 11/15/2024 Esau Fu Elevated liver enzymes R74.8 Assessments Encounter Date Diagnosis (ICD Code) Assessment Notes Treatment Notes Treatment Clinical Notes Section Notes 11/15/2024 Elevated liver enzymes (ICD-10 - R74.8) Plan Of Treatment Pending Test Test Name Order Date CMP (COMP MET CESPEDES) w/eGFR CKD-EPI 2024 Next Appt Details Provider Name:Esau foster, 01/25/2025 08:30:00 AM, [address], [place], [place], [address], Progress Notes * Edgar MOROCHO:1990 (34 yo F)Acc No.[id number]:11/15/2024 Patient: Cory BEATTY :1990 A ge:34 Y S ex:Female Address:[address] [place] [address] Subjective: * Chief Complaints: * L ab results * Medical History: * Surgical History: * Hospitalization/Major Diagno stic Procedure: * Medications: Objective: * Vitals: * Physical Examination: Assessment: * Assessment: 1. E levated liver enzymes - R74.8 (Primary) Plan: * Treatment: * Procedure Codes: * true * Date: Generated for Ilda mendoza/Rocio/Jolie on: 12/08/2024 08:12 AM EDT
--- OUTSIDE RECORDS SUMMARY | 2024-12-08 08:12 | XMS_ITS | Encounter Summary ---
Author Organization [facility] Address [address] [place] [address] Care Team Providers Care Product Safety Tester Name Role Phone Bryan Zamorano MD Unavailable [phone] Source Comments In the event this information is protected by the Federal Confidentiality of Alcohol and Drug AbusePatient Records regulations: The Federal rules restrict any use of the information to criminally investigate or prosecute any alcohol or drug abuse patient.[facility] Encounter Details Date Type Department Care Team (Late st Contact Info) Description 08/16/2024 Patient Msg Referring Physician [address] [place] [phone] Provider, [facility] referral Social History Tobacco Use Types Packs/Day Years Used Date Smoking Tobacco: Never Assessed Comments Unknown Sex and Gender Information Value Date Recorded Sex Assigned at Not on file Legal Sex Female 10:15 AM EDT Gender Identity Not on file Sexual Orientation Not on file documented as of this encounter Plan of Treatment Not on file documented as of this encounter Visit Diagnoses Not on filedocumented in this encounter Care Teams Product Safety Tester Relationship Specialty Start Date End Date Bryan Zamorano MD [address] [place] [address] Referring Family Medicine 08/16/24 documented as of this encounter
--- OUTSIDE RECORDS SUMMARY | 2024-12-08 08:12 | XMS_ITS | Encounter Summary ---
Author Organization [facility] Address [address] [place] [address] Care Team Providers Care Evaluator Name Role Phone Bryan Zamorano MD Primary Care Provider + Bryan Zamorano MD Primary Care Provider + Barbie Dang DO Unavailable [phone] Encounter Details Date Type Department Care Team (Late Contact Info) Description 10/15/2022 Abstract [facility] [address] [place] [phone] Marybel Marie MA Social History Tobacco Use Types Packs/Day Years Used Date Smoking Tobacco: Never Assessed Comments Unknown Sex and Gender Information Value Date Recorded Sex Assigned at Not on file Legal Sex Female 6:53 PM EDT Gender Identity Not on file Sexual Orientation Not on file documented as of this encounter Plan of Treatment Upcoming Encounters Date Type Department Care Team (Late Contact Info) Description 12/28/2024 9:40 AM EDT Office Visit [facility] [address] [place] [address] Barby Arzate MD [address] [place] [address] 11/15/2025 9:30 AM EDT Office Visit [facility] [address] [place] [address] [address] Barbie Dang DO [address] [phone] documented as of this encounter Visit Diagnoses Not on filedocumented in this encounter Care Teams Evaluator Relationship Specialty Start Date End Date Bryan Zamorano MD PCP - General Family Medicine 10/20/22 11/08/24 Bryan Zamorano MD [address] [place] [address] PCP - General Family Medicine 11/09/24 Barbie Dang DO [facility] [address] [facility] D [address] [phone] Referring Physician Obstetrics and Gynecology 11/09/24 documented as of this encounter
--- OUTSIDE RECORDS SUMMARY | 2024-12-08 08:12 | XMS_ITS | Clinical Summary ---
Author Organization [facility] Address [address] [place], [place] [address] Care Team Providers Care Supplier Quality Name Role Phone Bryan Zamorano MD Unavailable [phone] Social History Tobacco Use Types Packs/Day Years Used Date Smoking Tobacco: Never Assessed Comments Unknown Sex and Gender Information Value Date Recorded Sex Assigned at Not on file Legal Sex Female 10:15 AM EDT Gender Identity Not on file Sexual Orientation Not on file Plan of Treatment Not on file Insurance [facility] Care Teams Supplier Quality Relationship Specialty Start Date End Date Bryan Zamorano MD [address] [place] [address] Referring Family Medicine 08/16/24
--- OUTSIDE RECORDS SUMMARY | 2024-12-08 08:12 | XMS_ITS | Patient Health Record ---
Author Organization [facility] in [place] Address [address] [place] [address] Care Team Providers Care Lead Inspector Name Role Phone JebConstantine oconnell Primary Care Provider Provider, Radiology Unavailable [phone] Lloyd Newell Unavailable [phone] Allergies Allergen (clinical drug ingredient) Drug/Non Drug Allergy documented on EMR Reaction Allergy Type Onset Date Status hydroxychloroquine Hydroxychloroquine hives Vin g Allergy Active prednisone predniSONE Unknown Drug Allergy Active ciprofloxacin Ciprofloxacin nausea and vomiting Drug Allergy Active Results Component Value Reference Range Notes ANTI - CARDIOLIPIN (ANTIPHOS PHOLIPID) ,IGG/IGA/IGM Reviewed date:08/23/2024 03:49:51 PM Interpretation: Performing Lab:[facility], [address] [place], [address] [phone] Notes/Report: Result between 10.0 - 40.0 U/mL is considered weak positive -recommend initially retesting the patient after 8 - 12 weeks FACILITY: [facility] and then as clinically indicated. [id number] MARIO, IgG 1.0 (10.0 - 40.0) U/mL MARIO, IgA 1.5 (14.0 - 20.0) U/mL MARIO, IgM 29.0 (10.0 - 40.0) U/mL LEXY (ANGIOTENSIN CONVERTING ENZYME) Reviewed date:08/26/2024 06:21:34 AM Interpretation: Performing Lab:CB, [facility], [place] Ramses Valderrama Notes/Report: FASTING:UNKNOWN FASTING: UNKNOWN HFOX-0-[id number] IGG,IGA, and IGM Reviewed date:08/25/2024 08:35:38 AM Interpretation: Performing Lab:KARLI, [facility], [place]xtz[place] Ramses Hannah Valderrama Notes/Report: FASTING:UNKNOWN FASTING: UNKNOWN B2 GLYCOPROTEIN I (IGG)AB <2.0 Value Interpretation ----- < 20.0 Antibody not detected > or = 20.0 Antibody detected The antiphospholipid antibody syndrome (APS) is a clinical-pathologic correlation that includes a clinical event (e.g. arterial or venous thrombosis, morbidity) and persistent positive antiphospholipid antibodies (IgM, IgG Cardiolipin or b2GPI antibodies greater than the 99th percentile; or a lupus anticoagulant). International consensus guidelines for APS suggest waiting at least 12 weeks before retesting to confirm antibody persistence. The Systemic Lupus International [facility] immunological classification criteria for systemic lupus erythematosus (SLE) include testing for isotype IgA, which has yet to be incorporated into APS criteria. Low level antiphospholipid antibodies may sometimes be detected in the setting of infection, drug therapy or aging. For additional information, please refer to http://UICO,[employer].Hot Potato/faq/FAQ1 09 (This link is being provided for informational/ educational purposes only.) B2 GLYCOPROTEIN I (IGM)AB <2.0 Value Interpretation ----- < 20.0 Antibody not detected > or = 20.0 Antibody detected The antiphospholipid antibody syndrome (APS) is a clinical-pathologic correlation that includes a clinical event (e.g. arterial or venous thrombosis, morbidity) and persistent positive antiphospholipid antibodies (IgM, IgG Cardiolipin or b2GPI antibodies greater than the 99th percentile; or a lupus anticoagulant). International consensus guidelines for APS suggest waiting at least 12 weeks before retesting to confirm antibody persistence. The Systemic Lupus International [facility] immunological classification criteria for systemic lupus erythematosus (SLE) include testing for isotype IgA, which has yet to be incorporated into APS criteria. Low level antiphospholipid antibodies may sometimes be detected in the setting of infection, drug therapy or aging. For additional information, please refer to http://[employer]ICO[employer].Hot Potato/faq/FAO4 09 (This link is being provided for informational/ educational purposes only.) B2 GLYCOPROTEIN I (IGA)AB <2.0 Value Interpretation ----- < 20.0 Antibody not detected > or = 20.0 Antibody detected The antiphospholipid antibody syndrome (APS) is a clinical-pathologic correlation that includes a clinical event (e.g. arterial or venous thrombosis, morbidity) and persistent positive antiphospholipid antibodies (IgM, IgG Cardiolipin or b2GPI antibodies greater than the 99th percentile; or a lupus anticoagulant). International consensus guidelines for APS suggest waiting at least 12 weeks before retesting to confirm antibody persistence. The Systemic Lupus International [facility] immunological classification criteria for systemic lupus erythematosus (SLE) include testing for isotype IgA, which has yet to be incorporated into APS criteria. Low level antiphospholipid antibodies may sometimes be detected in the setting of infection, drug therapy or aging. For additional information, please refer to http://education.Hot Potato/faq/FAK9 09 (This link is being provided for informational/ educational purposes only.) ANTI - CCP (CYCLIC CITRULLIN ATED PEPTIDE AB) Reviewed date:08/23/2024 03:49:51 PM Interpretation: Performing Lab:[facility], [address] [place], [address] Notes/Report: FACILITY: [facility] [id number] CCP ANTIBODY 4.4 (0.0 - 4.9) U/mL CK (CPK) Reviewed date:08/23/2024 03:49:51 PM Interpretation: Performing Lab:[facility], [address] [place], [place], [id number] Notes/Report: FACILITY: [facility] [id number] CPK 30 (30 - 135) U/L HEPATITIS B CORE AB, TOTAL Reviewed date:08/23/2024 03:49:51 PM Interpretation: Performing Lab:[facility], [address] [place], [place], [address] Notes/Report: FACILITY: [facility] [id number] HEP B CORE AB NEG (NEG - NEG) HEPATITIS B SURFACE AB (HBSA B) Reviewed date:08/23/2024 03:49:51 PM Interpretation: Performing Lab:[facility], [address] [place], [address] Notes/Report: FACILITY: [facility] [id number] HEP B SURF AB NEG (NEG - NEG) HLA-B27 Reviewed date:08/25/2024 08:35:38 AM Interpretation: Performing Lab:CB, [facility], [place]ounce[place]acwMX[address] Ramses Valderrama Notes/Report: FASTING:UNKNOWN FASTING: UNKNOWN HLA-B27 ANTIGEN NEGATIVE NEGATIVE LUPUS ANTICOAGULANT Reviewed date:08/23/2024 09:58:48 AM Interpretation: Performing Lab:KARLI, [facility], [place] Ramses Valderrama Notes/Report: FASTING:UNKNOWN FASTING: UNKNOWN LUPUS ANTICOAGULANT NOT DETECTED A Lupus Anticoagulant is not detected. For more information on this test, go to: http://education.Hot Potato/faq/FAQ0 1v2 (This link is being provided for informational/ educational purposes only.) This interpretation is based on the following test results: PTT-LA SCREEN 29 < OR = 40 sec DRVVT SCREEN 32 < OR = 45 sec UA (REFLEX URINALYSIS TO CUL TURE) Reviewed date:08/23/2024 03:49:51 PM Interpretation: Performing Lab:[facility], [address] [place], [address] [phone] Notes/Report: FACILITY: [facility] [id number] COLOR P YEL (P YEL - L AMB) CHARACTER CLEAR (CLEAR - HAZY) SP. GRAVITY 1.011 (1.001 - 1.035) PH 5.0 (5.0 - 9.0) ALBUMIN NEG (NONE - NEG) MG/DL GLUCOSE NEG (NEG) MG/DL KETONES NEG (NEG) MG/DL BILIRUBIN NEG (NEG) UROBILINOGEN 0.2 (0.2 - <2.0) MG/DL OCCULT BLD. NEG (NEG) NITRITE NEG (NEG) LEUK. ESTERASE NEG (NEG) UR. WBC 0-4 (0 - 4) /HPF UR. RBC NONE (0 - 2) /HPF SQUAMOUS EPI OCC (NONE - OCC) /HPF BACTERIA OCC (NONE - OCC) /HPF MUCUS OCC (NONE - OCC) /HPF REFLEX CULTURE ADDED NO () RHEUMATOID FACTOR (RHF) Reviewed date:08/23/2024 03:49:51 PM Interpretation: Performing Lab:[facility], [address] [place], [place], [address] [phone] Notes/Report: FACILITY: [facility] [id number] RF FACTOR <9 (0 - 12) IU/ML RF FACTOR = LESS THAN 9 IU/ML RF FACTOR MIN. DETECTION = 9 IU/ML. VITAMIN D, 25 LEVEL (TOTAL) Reviewed date:08/23/2024 03:49:51 PM Interpretation: Performing Lab:[facility], [address] [place], [address] [phone] Notes/Report: * * * VITAMIN D, 25 HYDROXY GENERAL GUIDELINE * * * DEFICIENCY = < OR = 20.0 NG/ML INSUFFICIENCY = 20.1 - 29.9 NG/ML SUFFICIENCY = 30.0 - 100.0 NG/ML TOXICITY = > 100.1 NG/ML FACILITY: [facility] [id number] VITAMIN D, 25 36.9 (30.0 - 100.0) NG/ML SED RATE and CRP Reviewed date:08/23/2024 03:49:51 PM Interpretation: Performing Lab:[facility], [address] [place], [address] Notes/Report: FACILITY: [facility] [id number] SED RATE WEST. 8 (0 - 25) MM/HR CRP EXTENDED RANGE <0.30 (0.00 - 5.00) MG/L C3 and C4 Reviewed date:08/23/2024 03:49:51 PM Interpretation: Performing Lab:[facility], [address] [place], [place], [address] Notes/Report: FACILITY: [facility] [id number] C 3 143 (88 - 165) MG/DL C 4 26 (14 - 44) MG/DL TB GOLD PLUS, QUANTIFERON Reviewed date:08/22/2024 09:15:09 AM Interpretation: Performing Lab:[facility], [facility] HospitalQkllPL[address] Ramses Valderrama Notes/Report: FASTING:UNKNOWN FASTING: UNKNOWN QUANTIFERON(R)-TB GOLD PLUS, 1 TUBE NEGATIVE NEGATIVE Negative test result. M. tuberculosis complex infection unlikely. NIL 0.01 MITOGEN-NIL 4.04 TB2-NIL 0.01 The Nil tube value reflects the background interferon gamma immune response of the patient's blood sample. This value has been subtracted from the patient's displayed TB and Mitogen results. Lower than expected results with the Mitogen tube prevent false-negative Quantiferon readings by detecting a patient with a potential immune suppressive condition and/or suboptimal pre-analytical specimen handling. The TB1 Antigen tube is coated with the M. tuberculosis-specific antigens designed to elicit responses from TB antigen primed CD4+ helper T-lymphocytes. The TB2 Antigen tube is coated with the M. tuberculosis-specific antigens designed to elicit responses from TB antigen primed CD4+ helper and CD8+ cytotoxic T-lymphocytes. For additional information, please refer to https://education.Fabule/faq/FAQ 204 (This link is being provided for informational/ educational purposes only.) PROTEIN and CREATININE w RAT IO (RANDOM URINE) (SPOT) Reviewed date:08/23/2024 03:49:51 PM Interpretation: Performing Lab:[facility], [address] [place], [place], [address] Notes/Report: FACILITY: [facility] [id number] PROTEIN, URINE 5.0 (0.0 - 12.0) MG/DL PROTEIN, URINE = < 5.0 MG/DL PROTEIN, URINE MIN DETECTION = 5.0 MG/DL CREAT UR. 62.8 (20 - 320) MG/DL URINE PROTEIN/CREAT RATIO 80 (21 - 161) MG/G CR CMP (COMP MET CESPEDES) w/eGFR CK D-EPI Reviewed date:08/23/2024 03:49:51 PM Interpretation: Performing Lab:[facility], [address] [place], [address] [phone] Notes/Report: FACILITY: [facility] [id number] GLUCOSE 91 (74 - 106) MG/DL BUN 14 (4 - 25) MG/DL CREATININE, BLOOD 0.62 (0.52 - 1.04) MG/DL GFR by CKD-EPI 121.3 (60.0) ML/M1.7 SODIUM 137 (137 - 145) MMOL/L POTASSIUM 4.5 (3.5 - 5.1) MMOL/L CHLORIDE 110 (98 - 107) MMOL/L CARBON DIOXIDE 24 (22 - 30) MMOL/L CALCIUM 9.6 (8.6 - 10.6) MG/DL ALBUMIN 4.4 (3.5 - 5.0) G/DL TOTAL PROTEIN 6.9 (6.3 - 8.2) G/DL ALK PHOS 64 (38 - 126) U/L ALT (SGPT) 57 (1 - 35) U/L AST (SGOT) 27 (15 - 46) U/L BILIRUBIN, TOT 0.4 (0.2 - 1.3) MG/DL CBC WITH DIFF Reviewed date:08/23/2024 03:49:51 PM Interpretation: Performing Lab:[facility], [address] [place], [address] [phone] Notes/Report: FACILITY: [facility] [id number] WBC 13.30 (3.80 - 10.60) x10^3ul RBC 4.69 (4.20 - 5.40) x10^6ul HEMOGLOBIN 12.9 (12.0 - 16.0) G/DL HEMATOCRIT 39.9 (37.0 - 47.0) % MCV 85.1 (81.0 - 99.0) fl MCH 27.5 (27.0 - 33.0) PG MCHC 32.3 (30.0 - 37.0) G/DL RDW-SD 46.0 (37.0 - 49.0) fl PLT 379 (130 - 400) x10^3ul NEUTROPHIL CT 10.37 (1.50 - 7.00) x10^3ul LYMPHOCYTE CT 1.98 (0.96 - 5.40) x10^3ul MONOCYTE CT 0.81 (0.10 - 0.90) x10^3ul EOSINOPHIL CT 0.00 (0.00 - 0.40) x10^3ul BASOPHIL CT 0.03 (0.00 - 0.16) x10^3ul IMMATURE GRAN CT 0.11 (0.00 - 0.11) x10^3ul SEGS 78.0 () % LYMPS 14.9 () % MONOS 6.1 () % EOSINOPHIL 0.0 () % BASOS 0.2 () % IMMATURE GRANS (IG) 0.8 () % XR Chest PA and Lateral (Rou caroline CXR) * Reviewed date:08/19/2024 07:51:25 PM Interpretation: Performing Lab: Notes/Report: [facility] [address] [address] Name: BAILEE REID : 1990 Gender: F Referring Provider: Lloyd Newell Exam: CHEST PA AND LATERAL Exam Start: 08/19/2024 Accn: [id number] INDICATION/HISTORY: R76.8 other specified abnormal immunological findings in serum PROCEDURE: Two-view chest x-ray COMPARISON: No prior comparison available. FINDINGS: Normal heart size and pulmonary vascularity. Lungs are clear and expanded. IMPRESSION: Normal chest x-ray. Transcribed by: Etelvina Arias 08/19/2024 13:37 Sincerely, Marcelo Zaldivar MD Electronically Signed: 08/19/2024 13:59 Thank you for referring FRANKLIN [facility] - [facility], [id number] [address] [address] Name: BAILEE REID : 1990 Gend er: F Referring Provider: Lloyd Newell Exam: CHEST PA AND LATERAL Exam Start: 08/20/19 Accn: [id number] ___ INDICATION/HISTORY: R76.8 other specified abnormal immunological findings in serum PROCEDURE: Two-view chest x-ray COMPARISON: No prior comparison available. FINDINGS: Normal heart size an d pulmonary vascularity. Lungs are clear and expanded. IMPRESSION: Normal chest x-ray. Transcribed by: Etelvina Arias 08/19/2024 13:37 Sincerely, Marcelo Zaldivar MD Electronically Niecy d: 08/19/2024 13:59 Thank you for referr norma LEIVA to the [facility], [facility]. TPMT ACTIVITY (THIOPURINE-ME THYLTRANSFERASE) Reviewed date:10/13/2024 08:12:59 AM Interpretation: Performing Lab:EZ, [facility],[address] [facility] CenterCA[address] Petrona Hua MD,PhD,RADHA Notes/Report: FASTING:UNKNOWN FASTING: UNKNOWN TPMT ACTIVITY 15 Reference Range for TPMT Activity: >12 Normal 4-12 Heterozygote or low metabolizer <4 Homozygote Deficient Range This test was developed and its analytical performance characteristics have been determined by [facility]. It has not been cleared or approved by the FDA. This assay has been validated pursuant to the CLIA regulations and is used for clinical purposes. SED RATE and CRP Reviewed date:10/09/2024 04:44:28 PM Interpretation: Performing Lab:[facility], [address], [place], [place], [address] [phone] Notes/Report: FACILITY: [facility] [id number] SED RATE WEST. 6 (0 - 25) MM/HR CRP EXTENDED RANGE 1.49 (0.00 - 5.00) MG/L C3 and C4 Reviewed date:10/09/2024 04:44:28 PM Interpretation: Performing Lab:[facility], [address] [place], [place], [address] Notes/Report: FACILITY: [facility] [id number] C 3 165 (88 - 165) MG/DL C 4 39 (14 - 44) MG/DL MTX PANEL (CBC, ALB,ALT, AST , ALK ,CREA w/GFR CKD-EPI)) Reviewed date:10/09/2024 04:44:28 PM Interpretation: Performing Lab:[facility], [facility] [place], [address] Notes/Report: FACILITY: [facility] [id number] WBC 7.08 (3.80 - 10.60) x10^3ul HEMOGLOBIN 11.9 (12.0 - 16.0) G/DL HEMATOCRIT 37.4 (37.0 - 47.0) % MCH 27.8 (27.0 - 33.0) PG MCHC 31.8 (30.0 - 37.0) G/DL ALBUMIN 4.4 (3.5 - 5.0) G/DL ALT (SGPT) 102 (1 - 35) U/L AST (SGOT) 45 (15 - 46) U/L ALK PHOS 63 (38 - 126) U/L CREATININE, BLOOD 0.66 (0.52 - 1.04) MG/DL GFR by CKD-EPI 119.5 (60.0) ML/M1.7 RBC 4.28 (4.20 - 5.40) x10^6ul MCV 87.4 (81.0 - 99.0) fl PLT 314 (130 - 400) x10^3ul SED RATE and CRP Reviewed date:11/13/2024 02:32:00 PM Interpretation: Performing Lab:[facility], [address] [place], [address] Notes/Report: FACILITY: [facility] [id number] SED RATE WEST. 13 (0 - 25) MM/HR CRP EXTENDED RANGE 2.14 (0.00 - 5.00) MG/L MTX PANEL (CBC, ALB,ALT, AST , ALK ,CREA w/GFR CKD-EPI)) Reviewed date:11/15/2024 04:10:03 PM Interpretation: Performing Lab:[facility], [address] [place], [address] [phone] Notes/Report: FACILITY: [facility] [id number] WBC 6.01 (3.80 - 10.60) x10^3ul HEMOGLOBIN [...] fl PLT 325 (130 - 400) x10^3ul PROF CHEM 8 (BAS METB) Reviewed date:08/17/2024 06:08:13 PM Interpretation: Performing Lab: Notes/Report: [facility] , Sodium 139 136-145 mmol/L Potassium 4.3 3.5-5.1 mmol/L Chloride 103 98-107 mmol/L Carbon Dioxide 27.0 21.0-32.0 mmol/L Anion Gap 13.3 Glucose 119 74-106 mg/dL Blood Urea Nitrogen 13.0 7.0-18.0 mg/dL Creatinine 0.84 0.55-1.02 mg/dL Estimated GFR ( Bere >60 >=60 mL/min/1.73m 2 Estimated GFR (Non- Mirna >60 >=60 mL/min/1.73m 2 BUN Creatinine Ratio 15.5 Calcium 9.4 8.5-10.1 mg/dL Performing Lab: see note ML - The [facility] LB GAGE SUBTYPE (8) (dsDNA, SSA, SSB, SWANSON, COMPLIANCE VICE PRESIDENT, SCL70,JO1,CENTOMERE) Reviewed date:08/23/2024 03:48:37 PM Interpretation: Performing Lab:[facility], [address] [place], [address] [phone] Notes/Report: PERFORMED ON PHADIA EFFECTIVE 11-17-2022 FACILITY: [facility] [id number] ANTI ds DNA 0.8 (0.0 - 15.0) IU/ML SSA/RO52 <0.3 (0.0 - 10.0) U/mL SSA/RO60 <0.4 (0.0 - 10.0) U/mL ANTI SSB/LA <0.4 (0.0 - 10.0) U/mL ANTI SWANSON <0.7 (0.0 - 10.0) U/mL ANTI COMPLIANCE VICE PRESIDENT (U1RNP) 0.9 (0.0 - 10.0) U/mL ANTI SCL 70 <0.6 (0.0 - 10.0) U/mL ANTI SHERMAN-1 <0.3 (0.0 - 10.0) U/mL ANTI CENTROMERE B <0.4 (0.0 - 10.0) U/mL GAGE with TITER Reviewed date:08/23/2024 03:49:30 PM Interpretation: Performing Lab:[facility], [address] [place], [address] Notes/Report: FACILITY: [facility] [id number] GAGE by HEp-2 CELLS POS (NEG - NEG) GAGE TITER MIXED (<1:40 - 1:40) 1:80 GAGE CÉSAR MANUEL = CENTROMERE1:320 GAGE PATTERN = NUCLEOLAR Antistreptolysin O Ab Reviewed date:08/11/2024 06:50:14 PM Interpretation: Performing Lab: Notes/Report: [facility] , Antistreptolysin O Ab 49.5 0.0-200.0 IU/mL Performed at: [facility] [address] [id number] Repair Supervisor: Chacho Castro PhD, Phone: [phone] Performing Lab: see note LC - [facility] LB URIC ACID SERUM Reviewed date:08/10/2024 12:43:33 PM Interpretation: Performing Lab: Notes/Report: [facility] , Uric Acid 4.4 2.6-6.0 mg/dL Performing Lab: see note ML - [facility] LB TSH Reviewed date:08/10/2024 12:43:33 PM Interpretation: Performing Lab: Notes/Report: [facility] , Thyroid Stimulating Hormone 0.825 0.358-3.740 uIU/mL Performing Lab: see note ML - [facility] LB RHEUMATOID FACTOR Reviewed date:08/11/2024 06:50:14 PM Interpretation: Performing Lab: Notes/Report: [facility] , Rheumatoid Factor (RF) <10.0 <14.0 IU/mL Performing Lab: see note LC - [facility] LB PROF 14(COMP METB) Reviewed date:08/10/2024 12:43:33 PM Interpretation: Performing Lab: Notes/Report: [facility] , Sodium 142 136-145 mmol/L Potassium 3.3 3.5-5.1 mmol/L Chloride 106 98-107 mmol/L Carbon Dioxide 28.7 21.0-32.0 mmol/L Anion Gap 10.6 Glucose 96 74-106 mg/dL Blood Urea Nitrogen 12.0 7.0-18.0 mg/dL Creatinine 0.89 0.55-1.02 mg/dL Estimated GFR ( Bere >60 >=60 mL/min/1.73m 2 Estimated GFR (Non- Mirna >60 >=60 mL/min/1.73m 2 BUN Creatinine Ratio 13.5 Calcium 8.9 8.5-10.1 mg/dL Bilirubin Total 0.4 0.2-1.0 mg/dL Aspartate Amino Transferase 24 15-37 U/L Alanine Aminotransferase 55 14-59 U/L Alkaline Phosphatase 72 46-116 U/L Total Protein 7.4 6.4-8.2 g/dL Albumin Level 3.7 3.4-5.0 g/dL Globulin 3.7 Albumin Globulin Ratio 1.0 Performing Lab: see note ML - [facility] LB FREE T4 Reviewed date:08/10/2024 12:43:33 PM Interpretation: Performing Lab: Notes/Report: [facility] , Free T4 0.91 0.76-1.46 ng/dL Performing Lab: see note ML - [facility] LB CRP Reviewed date:08/10/2024 12:43:33 PM Interpretation: Performing Lab: Notes/Report: [facility] , C Reactive Protein <0.50 <=0.50 mg/dL Performing Lab: see note ML - [facility] LB GAGE by IFA Reviewed date:08/11/2024 06:50:14 PM Interpretation: Performing Lab: Notes/Report: [facility] , Antinuclear Antibodies, IFA Positive . Negative <1:80 Borderline 1:80 Positive >1:80 Homogeneous Pattern TNP . Nucleolar Pattern TNP . Speckled Pattern 1:160 . ICAP nomenc lature: AC-2,4,5,29 Centromere Pattern TNP . Spindle Apparatus Pattern TNP . Nuclear Membrane Pattern TNP . Midbody Pattern TNP . Nuclear Dot Pattern TNP . PCNA Pattern TNP . Centriole Pattern TNP . Note: Comment . Pattern Potential Disease Association Homogeneous Systemic Lupus Erythematosus, Drug Induced Systemic Lupus Erythematosus, Chronic Autoimmune hepatitis, Juvenile Idiopathic Arthritis Speckled Sjogren Syndrome, Systemic Lupus Erythematosus, Subacute Cutaneous Lupus, Lupus, Congenital Heart Block, Mixed Connective Tissue Disease, Scleroderma-diffuse, Scleroderma-Autoimmune Myositis Overlap Syndrome, Systemic Lupus Erythematosus-Scleroder ma-Autoimmune Myositis Overlap Syndrome, Systemic Autoimmune Rheumatic Disease, Undifferentiated Connective Tissue Disease Nucleolar Systemic Sclerosis, Scleroderma-Autoimmune Myositis Overlap Syndrome, Sjogren Syndrome, Raynaud phenomenon, Pulmonary Arterial Hypertension, Systemic Autoimmune Rheumatic Disease, Cancer Centromere Scleroderma-CREST, Limited Cutaneous SSc, Raynaud's Phenomenon, Primary Biliary Cholangitis Nuclear Dot Primary Biliary Cholangitis Nuclear Primary Biliary Cholangitis, Autoimmune Membrane Hepatitis/Liver disease, Systemic Autoimmune Rheumatic Disease, Autoimmune Cytopenias, Linear Scleroderma, Antiphospholipid Syndrome Performed at: [facility] [address] [id number] Repair Supervisor: Chacho Castro PhD, Phone: [phone] Performing Lab: see note - [facility] CA echo doppler complete Reviewed date:06/13/2024 07:59:36 PM Interpretation: Performing Lab: Notes/Report: Source Facility: [place] [address] [place] [address] Cardiology Report Signed Patient: FRANKLIN LEIVA MR#: [id number] : 1990 Acct:[id number] Age/Sex: 33 / F ADM Date: 06/09/24 Loc: CARD Attending Dr: BLAZE HUBBARD Ordering Physician: BLAZE HUBBARD Date of Service: 06/09/24 Procedure(s): CA echo doppler complete Accession Number(s): [id number] cc: BLAZE HUBBARD; Bryan Zamorano M.D. Patient Name: FRANKLIN LEIVA MR#: [id number] : 1990 Exam Date: 06/09/2024 Ordering Doctor: BLAZE HUBBARD M.D. ECHOCARDIOGRAM REPORT PROCEDURE: CA ECHO DOPPLER COMPLETE INDICATIONS: Chest pain, dyspnea COMPARISON: None. DESCRIPTION: COMPLETE ECHOCARDIOGRAM Real-time transthoracic echocardiography with 2D, M-mode, spectral and color flow Doppler performed. QUALITY: Technical quality was good. LEFT VENTRICLE: Normal chamber size. Normal left ventricular wall thickness. LV EF: Global left ventricular systolic function is normal; visually estimated ejection fraction is 55 to 60% DIASTOLIC: Normal diastolic function. ATRIAL SEPTUM: Inadequately seen. LEFT ATRIUM: Normal chamber size. RIGHT ATRIUM: Normal chamber size. RIGHT VENTRICLE: Normal chamber size. Normal right ventricular systolic function. TRICUSPID VALVE: Normal mobility and thickness. Mild regurgitation. No evidence of pulmonary hypertension. RVSP 22 mmHg MITRAL VALVE: Normal mobility and thickness. No evidence of mitral valve stenosis. There is no mitral annular calcification. Trivial mitral regurgitation. AORTIC VALVE: Normal trileaflet appearance. No visible sclerosis. Normal leaflet mobility. No evidence of aortic valve stenosis. No aortic regurgitation. AORTIC ROOT: Normal diameter and appearance. PULMONIC VALVE: Normal thickness and mobility. No stenosis. Trivial regurgitation. PERICARDIUM: No evidence of pericardial effusion. IVC: Not well visualized. CONCLUSION: 1. Global left ventricular systolic function is normal; visually estimated ejection fraction is 55 to 60% 2. Normal right ventricular size and systolic function 3. Normal diastolic function 4. The left atrium is normal in size 5. Mild tricuspid regurgitation Adult Echocardiography Procedure Report Left Ventricle LVEDD (3.7 - 5.6 cm): 4.61 cm LVESD (2.2 - 4.0 cm): 3.23 cm LVIVS thickness (0.6 - 1.2 cm): 0.79 cm LVPW thickness (0.5 - 1.0 cm): 0.85 cm e': 0.16 m/s E - e': 5.19 LVOT Max Gradient: 2.47 mm[Hg] LVOT Area (cm2): 0.79 m/s Peak Velocity (LVOT): 0.79 m/s Mean Velocity (LVOT): 0.49 m/s LVOT Diameter 1.94 cm Left Atrium LA Volume Index (2D A2C): 22.28 ml/m2 Left Atrium Systolic Dimension: 3.00 cm Mitral Valve MV E to A Ratio: 1.47 Mitral Valve A-Wave Peak Velocity: 0.58 m/s Mitral Valve E-Wave Peak Velocity: 0.86 m/s Right Ventricle Aorta AO Root Diam: 3.03 cm Aortic Valve AoV Area (Peak Jose Manuel): 2.18 cm2, 2.18 cm2 AoV Area (VTI): 2.08 cm2, 2.08 cm2 Peak Velocity(Antegrade Flow): 1.06 m/s Peak Gradient(Antegrade Flow): 4.51 mm[Hg] Mean Velocity(Antegrade Flow): 0.68 m/s Mean Gradient(Antegrade Flow): 2.19 mm[Hg] Velocity Time Integral: 22.09 cm Tricuspid Valve Peak Velocity (Regurgitant Flow): 2.20 m/s Pulmonic Valve Mean Gradient: 1.70 mm[Hg] Mean Velocity: 0.60 m/s Peak Velocity: 0.93 m/s, 0.89 m/s Peak Gradient: 3.16 mm[Hg], 3.44 mm[Hg] Right Atrium Right Atrium Systolic Pressure: 40.90 ml, 40.90 ml Dictated by: Adebayo Gabriel M.D. on 06/13/2024 at 14:22 Approved by: Adebayo Gabriel M.D. on 06/13/2024 at 14:24 Dictated By: Adebayo Gabriel M.D. Signed By: 06/13/24 1425 DD/ 1424 TD/TT: Die Attacher: [place] [address] Cardiology Report Signed Patient: GARY LEIVA MR#: [id number] : 1990 Acct:[id number] Age/Sex: 33 / F ADM Date: 06/09/24 Loc: CARD Attending Dr: CHINA HUBBARD Ordering Physician: BLAZE HUBBARD Date of Service: 06/09/24 Procedure(s): CA ech o doppler complete Accession Number(s): [id number] cc: YANIRA HUBBARD; Bryan Zamorano M.D. Patient Name: FRNAKLIN LEIVA MR#: [id number] : 1990 Exam Date: 06/09/2024 Ordering Doctor: BLAZE HUBBARD M.D. ECHOCARDIOGRAM REPORT PROCEDURE: CA ECHO DOPPLER COMPLETE INDICATIONS: Chest pain, dyspnea COMPARISON: None. DESCRIPTION: COMPLET E ECHOCARDIOGRAM Real-time transthoracic echocardiography wit h 2D, M-mode, spectral and color flow Doppler performed. QUALITY: Technical quality was good. LEFT VENTRICLE: Norm al chamber size. Normal left ventricular wall thickness. LV EF: Global left ventricular systolic function is normal; visually estimated ejection fraction is 55 to 60% DIASTOLIC: Normal diastolic function. ATRIAL SEPTUM: Inadequately seen. LEFT ATRIUM: Normal chamber size. RIGHT ATRIUM: Normal chamber size. RIGHT VENTRICLE: Nor mal chamber size. Normal right ventricular systolic function. TRICUSPID VALVE: Nor mal mobility and thickness. Mild regurgitation. No evidence of pulmonar y hypertension. RVSP 22 mmHg MITRAL VALVE: Normal mobility and thickness. No evidence of mitral valve stenosis. There is n o mitral annular calcification. Trivial mitral regurgitation. AORTIC VALVE: Normal trileaflet appearance. No visible sclerosis. Normal leaflet mobility. No evidence of aortic valve stenosis. No aortic regurgitation. AORTIC ROOT: Normal diameter and appearance. PULMONIC VALVE: Norm al thickness and mobility. No stenosis. Trivial regurgitation. PERICARDIUM: No evidence of pericardial effusion. IVC: Not well visualized. CONCLUSION: 1. Global left ventricular systolic function is normal; visually estimated ejection fraction is 55 to 60% 2. Normal right ventricular size and systolic function 3. Normal diastolic function 4. The left atrium i s normal in size 5. Mild tricuspid regurgitation Adult Echocardiograp hy Procedure Report Left Ventricle LVEDD (3.7 - 5.6 cm) : 4.61 cm LVESD (2.2 - 4.0 cm) : 3.23 cm LVIVS thickness (0.6 - 1.2 cm): 0.79 cm LVPW thickness (0.5 - 1.0 cm): 0.85 cm e': 0.16 m/s E - e': 5.19 LVOT Max Gradient: 2 .47 mm[Hg] LVOT Area (cm2): 0.7 9 m/s Peak Velocity (LVOT) : 0.79 m/s Mean Velocity (LVOT) : 0.49 m/s LVOT Diameter 1.94 cm Left Atrium LA Volume Index (2D A2C): 22.28 ml/m2 Left Atrium Systolic Dimension: 3.00 cm Mitral Valve MV E to A Ratio: 1.47 Mitral Valve A-Wave Peak Velocity: 0.58 m/s Mitral Valve E-Wave Peak Velocity: 0.86 m/s Right Ventricle Aorta AO Root Diam: 3.03 cm Aortic Valve AoV Area (Peak Jose Manuel): 2.18 cm2, 2.18 cm2 AoV Area (VTI): 2.08 cm2, 2.08 cm2 Peak Velocity(Antegr anusha Flow): 1.06 m/s Peak Gradient(Antegr anusha Flow): 4.51 mm[Hg] Mean Velocity(Antegr anusha Flow): 0.68 m/s Mean Gradient(Antegr anusha Flow): 2.19 mm[Hg] Velocity Time Integr al: 22.09 cm Tricuspid Valve Peak Velocity (Regurgitant Flow): 2.20 m/s Pulmonic Valve Mean Gradient: 1.70 mm[Hg] Mean Velocity: 0.60 m/s Peak Velocity: 0.93 m/s, 0.89 m/s Peak Gradient: 3.16 mm[Hg], 3.44 mm[Hg] Right Atrium Right Atrium Systoli c Pressure: 40.90 ml, 40.90 ml Dictated by: Adebayo Gabriel M.D. on 06/13/2024 at 14:22 Approved by: Adebayo Gabriel M.D. on 06/13/2024 at 14:24 Dictated By: Adebayo Gabriel M.D. Signed By: 06/13/24 1425 DD/ 1424 TD/TT: Die Attacher: CT chest high res Reviewed date:09/30/2024 12:22:21 PM Interpretation: Performing Lab: Notes/Report: Source Facility: [facility] [place] [address] [place] [address] CT Scan Report Signed Patient: FRANKLIN LEIVA MR#: [id number] : 1990 Acct:[id number] Age/Sex: 33 / F ADM Date: 09/30/24 Loc: CT Attending Dr: LLOYD NEWELL Ordering Physician: LLOYD NEWELL Date of Service: 09/30/24 Procedure(s): CT chest high res Accession Number(s): [id number] cc: Bryan Zamorano M.D. [place] [address] Patient Name: FRANKLIN LEIVA MRN: [id number] date: 1990 Sex: F Assigned Patient Location: CT Current Patient Location: CT Accession/Order Number: [id number] Exam Date: 09/30/2024 09:37 Report Date: 09/30/2024 09:39 At the request of: LLOYD NEWELL Procedure: CT chest high res CT CHEST WITHOUT IV CONTRAST: High-resolution protocol. CLINICAL HISTORY: Shortness Of Breath COMPARISON: None TECHNIQUE: Spiral images were obtained through the chest without IV contrast. High-resolution protocol was utilized with both supine and prone imaging. This CT exam was performed using one or more following dose reduction techniques: Automated exposure control, adjustment of the mA and/or kV according to patient size, or use of iterative reconstruction technique. FINDINGS: Mediastinum:Thoracic aorta appears normal in caliber. Pulmonary trunk appears nondilated. No pericardial effusion or lymphadenopathy. The esophagus is grossly unremarkable. Lungs:No consolidation pneumothorax pleural effusion. No nodule. No septal thickening, bronchiectasis, honeycombing or groundglass opacities to suggest underlying interstitial lung disease. Expiratory phase imaging demonstrates some degree of air trapping. Abd:No acute findings. Soft tissues/Bones: No acute findings. Osseous structures demonstrate degenerative change. CT/CT chest high res IMPRESSION: No CT evidence of interstitial lung disease. No acute process is seen. Impression dictated by: Waldemar Blackwell Jr., D.O. 09/30/2024 9:39 AM Dictation Location: [place] [address] Electronically authenticated by: [id number] Y Date: 09/30/2024 09:39 Dictated By: Waldemar Blackwell M.D. Signed By: 09/30/24941 DD/ TD/TT: Die Attacher: The [address] [address] [address] Scan Report Signed Patient: GARY LEIVA MR#: [id number] : 1990 Acct:[id number] Age/Sex: 33 / F ADM Date: 09/30/24 Loc: CT Attending Dr: LLOYD NEWELL Ordering Physician: LLOYD NEWELL Date of Service: 09/30/24 Procedure(s): CT renata st high res Accession Number(s): [id number] cc: Bryan Zamorano M.D. [address] [address] Patient Name: FRANKLIN LEIVA MRN: [id number] date: 1990 Sex: F Assigned Patient Location: CT Current Patient Location: CT Accession/Order Numb er: [id number] Exam Date: 09/30/2024 09:37 Report Date: 09/30/2024 09:39 At the request of: LLOYD NEWELL Procedure: CT chest high res CT CHEST WITHOUT IV CONTRAST: High-resolution protocol. CLINICAL HISTORY: Shortness Of Breath COMPARISON: None TECHNIQUE: Spiral images were obtained through the chest without IV contrast. High-resolution protocol was utilized with both supine and prone imaging. This CT exam was performed using one or more following dose reduction techniques: Automate d exposure control, adjustment of the mA and/or kV according to patient size, or use of iterative reconstruction technique. FINDINGS: Mediastinum:Thoracic aorta appears normal in caliber. Pulmonary trunk appears nondilated. No pericardial effusion or lymphadenopathy. The esophagus is grossly unremarkable. Lungs:No consolidati on pneumothorax pleural effusion. No nodule. No septal thickening, bronchiectasis, honeycombing or groundglass opacities to suggest underlying interstit ial lung disease. Expiratory phase imaging demonstrates some degree of air trapping. Abd:No acute findings. Soft tissues/Bones: No acute findings. Osseous structures demonstrate degenerative change. CT/CT chest high res IMPRESSION: No CT evidence of interstitial lung disease. No acute process is seen. Impression dictated by: Waldemar Blackwell Jr., D.O. 09/30/2024 9:39 AM Dictation Location: [place] [address] Electronically authenticated by: [id number] Y Date: 09/30/2024 09:39 Dictated By: Waldemar Blackwell M.D. Signed By: 09/30/24941 DD/ 8 TD/TT: Die Attacher: Reason For Referral Diagnosis 1 Lupus (M32.9) Referral Organization [facility] Referring Provider First Name Constantine Referring Provider Last Name [facility] Referring Provider [facility] Referred Provider Specialty Rheumatology Referral Priority Routine Diagnosis 1 Arthralgia (M25.50) Referral Organization [facility] Referring Provider First Name Constantine Referring Provider Last Name [facility] Referring Provider [facility] Referred Organization [facility] Rheumatology Referred Provider Iam Quesada Referred Address [address] [place] [address] AYESHA,[facility],[place], [place],[address], Referred Provider Specialty Rheumatology Referral Priority Routine Medications Medication SIG (Take, Route, Frequency, Duration) Notes Start Date End Date Status Bactrim DS 800-160 MG 1 tablet Orally bi d for 10 days 11/01/2024 Not-Taking dexAMETHasone 1 MG TAKE 1 TABLET BY JANE TH TWICE A DAY FOR 30 DAYS for 30 Not-Taking Folic Acid 1 MG 1 tablet Orally Once a day for 90 days 09/09/2024 Active Pyridium 200 MG 1 tablet after meals Orally Three times a day for 2 days 11/01/2024 Not-Taking Methotrexate Sodium 2.5 MG 4 Tablets Ora lly once weekly for 84 days Active Immunizations Vaccine Route Administration Date Status Comme [facility] Comnaty Pfizer Single-Dose 30 mcg/0.3mL Unknown 03/23/2023 Administered Social History Tobacco Use: Social History Observation Description Date Details (start date - stop date) Never Smoker NA - NA Alcohol Screen (Audit-C) Question Answer Notes Did you have a drink containing alcohol in the p ast year? No Points 0 Interpretation Negative Tobacco Control (Standard) Question Answer Notes Tobacco use: Nonsmoker AUDIT-C (Standard) Question Answer Notes Did you have a drink containing alcohol in the p ast year? No Points 0 Interpretation Negative Problems Problem Type SNOMED Code ICD Code Onset Dates Problem Status W/U Status Risk Notes Problem 67309606 Calculus of gallbladder without cholecystitis without obstruction (K80.20) Active confirmed Problem 43315113 Other gastritis without bleeding (K29.60) Active confirmed Problem 915870833 Diaphragmatic hernia without obstruction or gangrene (K44.9) Active confirmed Problem 867903119 Inflammatory polyarthropathy (M06.4) Active confirmed Problem 343108989 Systemic involvement of connective tissue, unspecified (M35.9) Active confirmed Problem 834751523 Right upper quadrant pain (R10.11) Active confirmed Problem Insomnia (323891553) Insomnia (G47.00) Active c onfirmed Problem Eczema (74076117) Eczema (L30.9) Active confirm ed Problem Arthralgia (98512849) Arthralgia (M25.50) Active confirmed Problem Serous otitis media (62651573) Serous otitis media (H65.90) Active confirmed Problem Acute bronchitis (22644928) Acute bronchitis (J20.9) Active confirmed Problem Well adult (813640474) Well adult (Z00.00) Active confirmed Problem 467603701 Gallstones (K80.20) Active confirmed Problem Raised antinuclear antibody (773004785) Positive GAGE (antinuclear antibody) (R76.8) Active confirmed Problem Left lower quadrant pain (776818183) Abdominal pain, LLQ (R10.32) Active confirmed Problem Acute bronchiolitis (0791534) Acute bronchiolitis (J21.9) Active confirmed Problem Cyst of left ovary (75407307711574609) Ovarian cyst, left (N83.202) Active confirmed Problem Arthralgia of temporomandibular joint (85828396) 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) Active confirmed Problem COVID-19 (441063287) COVID-19 (U07.1) Active co nfirmed Vital Signs Heart Rate 60 /min 11/11/2024 Temperature 98.6 degrees Fahrenheit 06/20/2024 Respiratory Rate 18 /min 11/11/2024 Blood pressure diastolic 70 mm Hg 11/11/2024 Height 62 in 11/11/2024 Blood pressure systolic 110 mm Hg 11/11/2024 Weight 225 lbs 11/11/2024 BMI 41.15 kg/m2 11/11/2024 Procedures Procedure Date Ordered Date Performed Result Body Sit e Plain Treadmill Stress 03/14/2024 N/A EKG w Interp & Report - performed 03/01/2024 N/ A Encounters Encounter Location Date Provider Diagnosis [facility] Rheumatology [address] [facility] [address] 08/26/2024 Lloyd Newell Inflammatory polyarthropathy M06.4 [facility] Rheumatology [address] [place] [address] 08/30/2024 Lloyd Newell [facility] Rheumatology [address] [place] [address] 09/19/2024 Lloyd Newell Other specified abnormal immunological findings in serum R76.[address] [address] 11/01/2024 Constantine Russy [facility] Rheumatology [address] [place] [address] 11/15/2024 Lloyd Newell Elevated liver enzym es R74.[address] [address] 07/04/2024 Constantine Hoy [address] [address] 08/05/2024 Constantine Hoy Acute otitis media, unspecified otitis media type H66.[address] [address] 08/10/2024 Constantine Hoy Low potassium syndro me E87.[address] [address] 08/11/2024 Constantine Hoy Lupus M32.[address] [address] 08/15/2024 Constantine Hoy Arthralgia M25.50 an d Positive GAGE (antinuclear antibody) R76.[address] [address] 08/17/2024 Constantine Russy [address] [address] 03/07/2024 Constantine Russy [address] [place] [address] 03/14/2024 Constantine Lona Chest pain R07.9 [facility] [address] [place] [facility] [place] [address] 03/24/2024 Constantine Zamorano Insomnia G47.00 [facility] [address] [place] [facility] [place] [address] 04/06/2024 Constantine Russkourtney [facility] [address] [place] [facility] [place] [address] 04/07/2024 Constantine Zamorano [facility] [address] [place] [facility] [place] [address] 06/30/2024 Constantine Zamorano [facility] [address] [place] [facility] [place] [address] 02/15/2024 Constantine Zamorano [facility] [address] [place] [facility] [place] [address] 03/01/2024 Constantine Zamorano [facility] Rheumatology [address] [place] [address] 09/09/2024 Lloyd Gennaoui Systemic involvement of connective tissue, unspecified M35.9 ; Inflammatory polyarthropathy M06.4 ; Other specified abnormal immunological findings in serum R76.8 ; Shortness of breath R06.02 and Pleurodynia R07.81 [facility] Rheumatology [address] [place] [address] 10/07/2024 Lloyd Gennaoui Systemic involvement of connective tissue, unspecified M35.9 ; Inflammatory polyarthropathy M06.4 ; Other specified abnormal immunological findings in serum R76.8 ; Shortness of breath R06.02 and Pleurodynia R07.81 [facility] Rheumatology [address] [place] [address] 11/11/2024 Lloyd Gennaoui Systemic involvement of connective tissue, unspecified M35.9 ; Inflammatory polyarthropathy M06.4 ; Other specified abnormal immunological findings in serum R76.8 ; [facility] (current) use of antimetabolite agent Z79.631 and Elevated liver enzymes R74.8 [facility] Rheumatology [address] [facility] [place] [address] 08/19/2024 Lloyd Sanderscristian Other specified abnormal immunological findings in serum R76.8 ; Other fatigue R53.83 ; Shortness of breath R06.02 and Pleurodynia R07.81 [facility] [address] [place] [address] 02/15/2024 Constantine Hoy Insomnia G47.00 and Chest pain R07.9 [facility] [address] [place] [address] 08/08/2024 Constantine Hoy Serous otitis media H65.90 [facility] [address] [place] [address] 08/15/2024 Constantine Hoy Arthralgia M25.50 [id number] [facility] [address] [facility] [address] [place], [place] [id number] 08/19/2024 Radiology Provider Other specified abnormal immunological findings in serum R76.8 [facility] [address] [place] [address] 03/01/2024 Constantine Hoy Chest pain R07.9 [facility] [address] [place] [address] 06/20/2024 Constantine Hoy Acute otitis media, unspecified otitis media type H66.90 ; Otalgia, unspecified laterality H92.09 and Well adult Z00.00 Assessments Encounter Date Diagnosis (ICD Code) Assessment Notes Treatment Notes Treatment Clinical Notes Section Notes 02/15/2024 Insomnia (ICD-10 - G47.00) 02/15/2024 Chest pain (ICD-10 - R07.9) 03/01/2024 Chest pain (ICD-10 - R07.9) trial streoid and toradol since some of the pain is reproducible on eam 06/20/2024 Acute otitis media, unspecified otitis media type (ICD-10 - H66.90) You have been prescribed antibiotics for otitis media. Antibiotics may bother your stomach, so try taking them with a light meal (unless instructed otherwise by your pharmacist). It is important to take them until they are finished. You can use [id number] r acetaminophen or ibuprofen if needed for pain. You have been prescribed antibiotics. You should be extra vigilant about hand washing or using hand teletypist gel. You should follow up with your Primary Care Physician or return to clinic if not improving in the next 3-5 days. 08/08/2024 Serous otitis media (ICD-10 - H65.90) 08/15/2024 Arthralgia (ICD-10 - M25.50) 08/19/2024 Other specified abnormal immunological findings in serum (ICD-10 - R76.8) # Positive GAGE 1: 160 speckled pattern -There is concern for lupus considering her positive GAGE and she is young [place] female. She has several nonspecific symptoms that raises suspicion. -On exam there is no synovitis or rash identified. No sores in the mouth. She does mention on history Raynaud's and a malar rash. She has pleurytic chest pain. -She has been on steroids with about 50% improvement in her symptoms. -Plan: labs ordered for further evaluation. She does not tolerate Prednisone but does better with dexamethasone. She can continue 1 mg BID until seen. - # Pleurytic chest pain -I see mention of stress test that was normal. I don't have this result. She is not really sure where it was done and thought it was TTC. -ECHO reviewed and trivial tricuspid regurgitation. No pericardial effusion. -Plan: We will get CXR today for further evaluation. May need hrCT if non diagnostic. Follow up in 2 weeks This is a moderately complex case with review of 3 unique tests and prescription drug management. 08/19/2024 Other fatigue (ICD-10 - R53.83) # Positive GAGE 1: 160 speckled pattern -There is concern for lupus considering her positive GAGE and she is young [place] female. She has several nonspecific symptoms that raises suspicion. -On exam there is no synovitis or rash identified. No sores in the mouth. She does mention on history Raynaud's and a malar rash. She has pleurytic chest pain. -She has been on steroids with about 50% improvement in her symptoms. -Plan: labs ordered for further evaluation. She does not tolerate Prednisone but does better with dexamethasone. She can continue 1 mg BID until seen. - # Pleurytic chest pain -I see mention of stress test that was normal. I don't have this result. She is not really sure where it was done and thought it was TTC. -ECHO reviewed and trivial tricuspid regurgitation. No pericardial effusion. -Plan: We will get CXR today for further evaluation. May need hrCT if non diagnostic. Follow up in 2 weeks This is a moderately complex case with review of 3 unique tests and prescription drug management. 09/09/2024 Systemic involvement of connective tissue, unspecified (ICD-10 - M35.9) # Inflammatory like joint pain with positive GAGE 1:320 nucleolar and centromere pattern -There is concern for undelrying lupus especially being a young female. 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 Dexamethasone 1 mg twice a day. Start methotrexate 15 mg weekly and folic acid 1 mg daily. Side effects of methotrexate including but not limited to GI upset, fatigue, hair loss, bone marrow suppression, hepatotoxicity and malignancy were made clear. - # Pleurytic chest pain -ECHO reviewed and trivial tricuspid regurgitation. No pericardial effusion. -Chest x-ray was normal -Plan: high-resolution CT scan ordered for further evaluation Follow up in 2 weeks This is a moderately complex case with review of 3 unique tests and prescription drug management. 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 Goals of treatment are to decrease symptoms of joint pain, swelling and stiffness and to minimize in/or prevent disease progression including further joint damage. 09/09/2024 Inflammatory polyarthropathy (ICD-10 - M06.4) # Inflammatory like joint pain with positive GAGE 1:320 nucleolar and centromere pattern -There is concern for undelrying lupus especially being a young female. 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 Dexamethasone 1 mg twice a day. Start methotrexate 15 mg weekly and folic acid 1 mg daily. Side effects of methotrexate including but not limited to GI upset, fatigue, hair loss, bone marrow suppression, hepatotoxicity and malignancy were made clear. - # Pleurytic chest pain -ECHO reviewed and trivial tricuspid regurgitation. No pericardial effusion. -Chest x-ray was normal -Plan: high-resolution CT scan ordered for further evaluation Follow up in 2 weeks This is a moderately complex case with review of 3 unique tests and prescription drug management. 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 Goals of treatment are to decrease symptoms of joint pain, swelling and stiffness and to minimize in/or prevent disease progression including further joint damage. 08/19/2024 Other specified abnormal immunological findings in serum (ICD-10 - R76.8) 10/07/2024 Systemic involvement of connective tissue, unspecified (ICD-10 - M35.9) # Inflammatory like joint pain with positive GAGE 1:320 nucleolar and centromere pattern -There is concern for undelrying lupus especially being a young female. -Workup has been negative besides positive GAGE -Currently on dexamethasone 1 mg once daily and MTX 15 mg weekly / folic acid 1 mg daily. Overall she is feeling better. 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 Continue MTX 15 mg weekly and folic acid 1 mg daily. Continue with dexamethasone 1 mg daily for 2 weeks, decrease to half a tabe to 2 weeks and then off. - Follow up in 4 weeks This is a moderately complex case with review of 3 unique tests and prescription drug management. 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 Goals of treatment are to decrease symptoms of joint pain, swelling and stiffness and to minimize in/or prevent disease progression including further joint damage. 11/11/2024 Systemic involvement of connective tissue, unspecified [...] expected to be lifelong treated with an antimetabolite/immu nosuppressant with moderate risk of morbidity. Goals of [...] expected to be lifelong treated with an antimetabolite/immu nosuppressant with moderate risk of morbidity. Goals of treatment are to decrease symptoms of joint pain, swelling and stiffness and to minimize in/or prevent disease progression including further joint damage. 03/14/2024 Chest pain (ICD-10 - R07.9) 03/24/2024 Insomnia (ICD-10 - G47.00) 08/05/2024 Acute otitis media, unspecified otitis media type (ICD-10 - H66.90) 08/10/2024 Low potassium syndrome (ICD-10 - E87.6) 08/11/2024 Lupus (ICD-10 - M32.9) 08/15/2024 Arthralgia (ICD-10 - M25.50) 08/15/2024 Positive GAGE (antinuclear antibody) (ICD-10 - R76.8) 08/26/2024 Inflammatory polyarthropathy (ICD-10 - M06.4) 09/19/2024 Other specified abnormal immunological findings in serum (ICD-10 - R76.8) 11/15/2024 Elevated liver enzymes (ICD-10 - R74.8) 11/11/2024 Other specified abnormal immunological findings in [...] expected to be lifelong treated with an antimetabolite/immu nosuppressant with moderate risk of morbidity. Goals of treatment are to decrease symptoms of joint pain, swelling and stiffness and to minimize in/or prevent disease progression including further joint damage. 10/07/2024 Inflammatory polyarthropathy (ICD-10 - M06.4) # Inflammatory like joint pain with positive GAGE 1:320 nucleolar and centromere pattern -There is concern for undelrying lupus especially being a young female. -Workup has been negative besides positive GAGE -Currently on dexamethasone 1 mg once daily and MTX 15 mg weekly / folic acid 1 mg daily. Overall she is feeling better. 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 Continue MTX 15 mg weekly and folic acid 1 mg daily. Continue with dexamethasone 1 mg daily for 2 weeks, decrease to half a tabe to 2 weeks and then off. - Follow up in 4 weeks This is a moderately complex case with review of 3 unique tests and prescription drug management. 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 Goals of treatment are to decrease symptoms of joint pain, swelling and stiffness and to minimize in/or prevent disease progression including further joint damage. 09/09/2024 Other specified abnormal immunological findings in serum (ICD-10 - R76.8) # Inflammatory like joint pain with positive GAGE 1:320 nucleolar and centromere pattern -There is concern for undelrying lupus especially being a young female. 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 Dexamethasone 1 mg twice a day. Start methotrexate 15 mg weekly and folic acid 1 mg daily. Side effects of methotrexate including but not limited to GI upset, fatigue, hair loss, bone marrow suppression, hepatotoxicity and malignancy were made clear. - # Pleurytic chest pain -ECHO reviewed and trivial tricuspid regurgitation. No pericardial effusion. -Chest x-ray was normal -Plan: high-resolution CT scan ordered for further evaluation Follow up in 2 weeks This is a moderately complex case with review of 3 unique tests and prescription drug management. 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 Goals of treatment are to decrease symptoms of joint pain, swelling and stiffness and to minimize in/or prevent disease progression including further joint damage. 08/19/2024 Shortness of breath (ICD-10 - R06.02) # Positive GAGE 1: 160 speckled pattern -There is concern for lupus considering her positive GAGE and she is young [place] female. She has several nonspecific symptoms that raises suspicion. -On exam there is no synovitis or rash identified. No sores in the mouth. She does mention on history Raynaud's and a malar rash. She has pleurytic chest pain. -She has been on steroids with about 50% improvement in her symptoms. -Plan: labs ordered for further evaluation. She does not tolerate Prednisone but does better with dexamethasone. She can continue 1 mg BID until seen. - # Pleurytic chest pain -I see mention of stress test that was normal. I don't have this result. She is not really sure where it was done and thought it was TTC. -ECHO reviewed and trivial tricuspid regurgitation. No pericardial effusion. -Plan: We will get CXR today for further evaluation. May need hrCT if non diagnostic. Follow up in 2 weeks This is a moderately complex case with review of 3 unique tests and prescription drug management. 06/20/2024 Otalgia, unspecified laterality (ICD-10 - H92.09) 06/20/2024 Well adult (ICD-10 - Z00.00) 08/19/2024 Pleurodynia (ICD-10 - R07.81) # Positive GAGE 1: 160 speckled pattern -There is concern for lupus considering her positive GAGE and she is young [place] female. She has several nonspecific symptoms that raises suspicion. -On exam there is no synovitis or rash identified. No sores in the mouth. She does mention on history Raynaud's and a malar rash. She has pleurytic chest pain. -She has been on steroids with about 50% improvement in her symptoms. -Plan: labs ordered for further evaluation. She does not tolerate Prednisone but does better with dexamethasone. She can continue 1 mg BID until seen. - # Pleurytic chest pain -I see mention of stress test that was normal. I don't have this result. She is not really sure where it was done and thought it was TTC. -ECHO reviewed and trivial tricuspid regurgitation. No pericardial effusion. -Plan: We will get CXR today for further evaluation. May need hrCT if non diagnostic. Follow up in 2 weeks This is a moderately complex case with review of 3 unique tests and prescription drug management. 09/09/2024 Shortness of breath (ICD-10 - R06.02) # Inflammatory like joint pain with positive GAGE 1:320 nucleolar and centromere pattern -There is concern for undelrying lupus especially being a young female. 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 Dexamethasone 1 mg twice a day. Start methotrexate 15 mg weekly and folic acid 1 mg daily. Side effects of methotrexate including but not limited to GI upset, fatigue, hair loss, bone marrow suppression, hepatotoxicity and malignancy were made clear. - # Pleurytic chest pain -ECHO reviewed and trivial tricuspid regurgitation. No pericardial effusion. -Chest x-ray was normal -Plan: high-resolution CT scan ordered for further evaluation Follow up in 2 weeks This is a moderately complex case with review of 3 unique tests and prescription drug management. 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 Goals of treatment are to decrease symptoms of joint pain, swelling and stiffness and to minimize in/or prevent disease progression including further joint damage. 10/07/2024 Other specified abnormal immunological findings in serum (ICD-10 - R76.8) # Inflammatory like joint pain with positive GAGE 1:320 nucleolar and centromere pattern -There is concern for undelrying lupus especially being a young female. -Workup has been negative besides positive GAGE -Currently on dexamethasone 1 mg once daily and MTX 15 mg weekly / folic acid 1 mg daily. Overall she is feeling better. 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 Continue MTX 15 mg weekly and folic acid 1 mg daily. Continue with dexamethasone 1 mg daily for 2 weeks, decrease to half a tabe to 2 weeks and then off. - Follow up in 4 weeks This is a moderately complex case with review of 3 unique tests and prescription drug management. 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 Goals of treatment are to decrease symptoms of joint pain, swelling and stiffness and to minimize in/or prevent disease progression including further joint damage. 11/11/2024 [facility] (current) use of antimetabolite agent (ICD-10 - [...] expected to be lifelong treated with an antimetabolite/immu nosuppressant with moderate risk of morbidity. Goals of [...] expected to be lifelong treated with an antimetabolite/immu nosuppressant with moderate risk of morbidity. Goals of treatment are to decrease symptoms of joint pain, swelling and stiffness and to minimize in/or prevent disease progression including further joint damage. 10/07/2024 Shortness of breath (ICD-10 - R06.02) # Inflammatory like joint pain with positive GAGE 1:320 nucleolar and centromere pattern -There is concern for undelrying lupus especially being a young female. -Workup has been negative besides positive GAGE -Currently on dexamethasone 1 mg once daily and MTX 15 mg weekly / folic acid 1 mg daily. Overall she is feeling better. 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 Continue MTX 15 mg weekly and folic acid 1 mg daily. Continue with dexamethasone 1 mg daily for 2 weeks, decrease to half a tabe to 2 weeks and then off. - Follow up in 4 weeks This is a moderately complex case with review of 3 unique tests and prescription drug management. 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 Goals of treatment are to decrease symptoms of joint pain, swelling and stiffness and to minimize in/or prevent disease progression including further joint damage. 09/09/2024 Pleurodynia (ICD-10 - R07.81) # Inflammatory like joint pain with positive GAGE 1:320 nucleolar and centromere pattern -There is concern for undelrying lupus especially being a young female. 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 Dexamethasone 1 mg twice a day. Start methotrexate 15 mg weekly and folic acid 1 mg daily. Side effects of methotrexate including but not limited to GI upset, fatigue, hair loss, bone marrow suppression, hepatotoxicity and malignancy were made clear. - # Pleurytic chest pain -ECHO reviewed and trivial tricuspid regurgitation. No pericardial effusion. -Chest x-ray was normal -Plan: high-resolution CT scan ordered for further evaluation Follow up in 2 weeks This is a moderately complex case with review of 3 unique tests and prescription drug management. 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 Goals of treatment are to decrease symptoms of joint pain, swelling and stiffness and to minimize in/or prevent disease progression including further joint damage. 10/07/2024 Pleurodynia (ICD-10 - R07.81) # Inflammatory like joint pain with positive GAGE 1:320 nucleolar and centromere pattern -There is concern for undelrying lupus especially being a young female. -Workup has been negative besides positive GAGE -Currently on dexamethasone 1 mg once daily and MTX 15 mg weekly / folic acid 1 mg daily. Overall she is feeling better. 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 Continue MTX 15 mg weekly and folic acid 1 mg daily. Continue with dexamethasone 1 mg daily for 2 weeks, decrease to half a tabe to 2 weeks and then off. - Follow up in 4 weeks This is a moderately complex case with review of 3 unique tests and prescription drug management. 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 Goals of treatment are to decrease symptoms of joint pain, swelling and stiffness and to minimize in/or prevent disease progression including further joint damage. Plan Of Treatment Pending Test Test Name Order Date CMP (COMPLETE METABOLIC PANEL) 4 HEMOGLOBIN A1C (GLYCO) 09/04/2023 IRON, TOTAL 09/04/2023 LIPID PANEL (CHOL/TRIG/HDL/LDL) 09/04/19 CBC WITH DIFF 09/04/2023 FLUORESCENT GAGE w TITER (ANTINUCLEAR ANT IBODIES) 08/19/2024 CT Chest w/o contrast 09/09/2024 EKG w Interp & Report - performed 2023 RHEUMATOID PANEL 06/20/2024 Insulin Level 09/04/2023 Basic Metabolic Panel (8) 08/10/2024 Treadmill Stress Test with Nuclear Imagi ng 02/15/2024 US Gallbladder 09/09/2022 PROF 14(COMP METB) 06/20/2024 THYROID PROFILE WITH TSH 06/20/2024 Plain Treadmill Stress 03/14/2024 THYROID PANEL (T4/TSH/FREE T3) GAGE SUBTYPING (9) (dsDNA, RO 52, RO60, SSB, SWANSON, COMPLIANCE VICE PRESIDENT, SCL70,JO1,CENTOMERE) 08/19/2024 CMP (COMP MET CESPEDES) w/eGFR CKD-EPI 2024 Next Appt Details Provider Name:Lloyd foster, 01/25/2025 08:30:00 AM, [address], [place], [address], Insurance Providers Payer Name Payer Address Payer Phone Subscriber Number Group Number Insured Name Patient Relationship to Insured Coverage Start Date Coverage End Date [employer] [address] ATTN CLAIMS [place], [place] [id number] Franklin Leiva Self - patient is the insured Medications Administered Medication Instructions Date of Administration Dosage Notes Dexamethasone, 4mg/mL 03/01/2024 12 mg 12 Ketorolac Tromethamine 03/01/2024 60 mg 60 Medical (General) History Medical History History ICD Code COVID-19 U07.1 Abdominal pain, LLQ R10.32 Acute bronchitis J20.9 Ovarian cyst, left N83.202 Eczema L30.9 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
--- OUTSIDE RECORDS SUMMARY | 2024-12-08 08:13 | XMS_ITS | Clinical Summary ---
Author Organization [facility] Address [address] [place] [address] Care Team Providers Care Cash Controller Name Role Phone Bryan Zamorano MD Primary Care Provider [phone] Allergies No known active allergies Medications esomeprazole (NexIUM) [address] capsule Take 40 mg by mouth before breakfast. Do not open capsule. Active traZODone (Desyrel) 50 mg tablet Take 50 mg by mouth if needed. 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 BMI 37.0-37.9, adult 05/03/2024 Cholelithiasis 05/03/2024 Eczema 05/03/2024 Hiatal hernia with GERD 05/03/2024 Nausea and vomiting 05/03/2024 Right upper quadrant abdominal pain 05/03/2024 Rt flank pain 05/03/2024 Cervical cancer screening 10/20/2022 Screening for human papillomavirus 10/20/2022 Left ovarian cyst 10/15/2022 Family History Medical History Relation Name Comments Atrial fibrillation Maternal Grandmother Heart failure Maternal Grandmother CABG Maternal Great-Grandmother cardiac arrest Mother Relation Name Status Comments Maternal Grandmother Maternal Great-Grandmother Other Mother Social History Tobacco Use Types Packs/Day Years Used Date Smoking Tobacco: Never Smokeless Tobacco: Never Tobacco Cessation:Counseling Given: Not Answered Alcohol Use Standard Drinks/Week Comments Not Currently 0 (1 standard drink = 0.6 oz pur e alcohol) Comments Unknown Sex and Gender Information Value Date Recorded Sex Assigned at Not on file Legal Sex Female 9:31 AM EDT Gender Identity Not on file Sexual Orientation Not on file Last Filed Vital Signs Vital Sign Reading Time Taken Comments Blood Pressure 108/76 06/10/2024 11:40 AM EST Pulse 71 06/10/2024 11:40 AM EST Temperature - - Respiratory Rate - - Oxygen Saturation 98% 06/10/2024 11:40 AM EST Inhaled Oxygen Concentration - - Weight 95.3 kg (210 lb) 06/10/2024 11:40 AM EST Height 157.5 cm (5' 2 ) 06/10/2024 11:40 AM EST Body Mass Index 38.41 06/10/2024 11:40 AM EST Plan of Treatment Health Maintenance Due Date Last Done Comments Depression Screening 2003 Varicella Vaccines (1 of 2 - 13+ 2-dose series) 11/01/2004 Hepatitis B Vaccines (1 of 3 - 19+ 3-dose series) 11/01/2010 Pap Smear 11/01/2012 Adult Tetanus 11/01/2013 Cervical Cancer Screening 11/01/2021 HPV/Cotest 11/01/2021 COVID-19 Vaccine ( season) 2024 03/23/2023, 08/03/2020, 07/13/2020 Influenza Vaccine (#1) 2025 Zoster Vaccines (1 of 2) 11/01/2041 HIB Vaccines Completed 05/29/1995, 06/1992, 03/05/1992, Additional history exists IPV Vaccines Completed 12/21/1996, 05/02, 03/05/1992, Additional history exists HPV Vaccines Aged Out No longer eligi ble based on patient's age to complete this topic Meningococcal B Vaccine Aged Out No l onger eligible based on patient's age to complete this topic Meningococcal Vaccine Aged Out No ofelia bladimir eligible based on patient's age to complete this topic Pneumococcal Vaccine: Pediatrics (0 to 5 Years) and At-Risk Patients (6 to 64 Years) Aged Out No longer eligible based on patient's age to complete this topic Rotavirus Vaccines Aged Out No longer eligible based on patient's age to complete this topic Insurance [facility] Care Teams Cash Controller Relationship Specialty Start Date End Date Bryan Zamorano MD [address] [facility] [place] [address] PCP - General 04/15/24
[2024-12-08 09:11] LABS: Alanine Aminotransferase 168 U/L (14-59); Albumin Globulin Ratio 1.0; Albumin Level 3.5 g/dL (3.4-5.0); Alkaline Phosphatase 80 U/L (46-116); Anion Gap 13.5; Aspartate Amino Transferase 80 U/L (15-37); Blood Urea Nitrogen 13.0 mg/dL (7.0-18.0); Calcium 8.9 mg/dL (8.5-10.1); Carbon Dioxide 25.5 mmol/L (21.0-32.0); Chloride 108 mmol/L (98-107); Estimated GFR (African America >60 (>=60 mL/min/1.73m^2); Estimated GFR (Non-African Ame >60 (>=60 mL/min/1.73m^2); Globulin 3.4 g/dL; Glucose 100 mg/dL (74-106); Potassium 4.0 mmol/L (3.5-5.1); Sodium 143 mmol/L (136-145); Total Protein 6.9 g/dL (6.4-8.2)
== END 2024-12-08 08:10 | disposition home or self-care (01) ==
LOC: LAB 08:10
PROVIDERS: PCP Family Medicine; Visit Provider Internal Medicine Rheumatology
DX: R74.8 Abnormal levels of other serum enzymes (principal)
CPT/HCPCS: 36415; 80053

== ENCOUNTER 2024-12-14 06:56 | Outpatient (OUT) | payer OTHER, SELFPAY ==
--- OUTSIDE RECORDS SUMMARY | 2024-12-14 06:58 | XMS_ITS | CCD ---
Author Organization [facility] Care Team Providers Care Sample Room Supervisor Name Role Phone Nguyen Zamorano Primary Care Physician [phone] ., [address] CEDILLO Primary Care Unavailable NILL [...] Attending Unavailable GRECHNY .TIMOTHY Consulting Unavaildomingo e GABY ., DR HENNING Admitting Unavailable HOY ., DR CEDILLO Primary Care Unavailable HAY ., DR HENNING Consulting Unavailable LIZBETH CARRILLO Consulting Unavailable NILLPo R Attending Unavailable NILL, Po R Attending Unavailable NILL, Po R Attending Unavailable NILL, Po Mackey Attending Unavailable NILL, Po Mackey Attending Unavailable BRISEIDA CARRASQUILLO Attending Unavailable BRISEIDA CARRASQUILLO Attending Unavailable Nguyen Zamorano MD Primary Care Provider [phone] Nguyen Zamorano MD Primary Care Provider [phone] Barbie Dang DO [phone] Allergies Allergy Classification Reported Allergen(s) Allergy Type Date of Onset Reaction(s) Facility (1 source) No Known Medication Allergies; Translations: [No Known Medication Allergies] Propensity to adverse reactions (disorder) [facility] Repository Medications Current Medications Medication Drug Class(es) Dates Sig (Normalized) Sig (Original) esomeprazole 40 mg delayed release oral capsule (6 sources) Proton Pump Inhibitor Start: 10-08-2022 take 1 capsule by mouth once daily Nexium 40 mg Cap-EC 40 mg = 1 cap(s), Oral, Daily, # 90 cap(s), Refills(s) 1, Pharmacy: [facility]/pharmacy #[id number], 157.4, cm, 09/26/22 10:43:00 EDT, Height/Length Dosing, 91.7, kg, 09/26/22 10:43:00 EDT, Weight Dosing Start Date: 10/08/22 Status: Ordered folic acid 1 mg oral tablet (4 sources) take 1 tablet by mouth once daily folic acid (Folvite) 1 MG tablet Take 1 mg by mouth Daily Active hyoscyamine sulfate 0.125 mg disintegrating oral tablet (3 sources) Start: 09-26-2022 take 1 tablet by mouth four times daily hyoscyamine 0.125 mg oral tablet, disintegrating 0.125 mg = 1 tab(s), Oral, QID, Refills(s) 0 Start Date: 09/26/22 Status: Ordered methotrexate 2.5 mg oral tablet (4 sources) Folate Analog Metabolic Inhibitor methotrexate 2.5 MG tablet Take 2.5 mg by mouth. ON THURSDAY TAKE 3 TABLET IN THE AM AND 3 TABLETS IN THE PM Active nabumetone 500 mg oral tablet (3 sources) Nonsteroidal Anti-inflammatory Drug Start: 09-26-2022 take 2 tablets by mouth once daily nabumetone 500 mg Tab 1,000 mg = 2 tab(s), Oral, Daily, Refills(s) 0 Start Date: 09/26/22 Status: Ordered nystatin [id number] unt/ml / triamcinolone acetonide 1 mg/ml topical cream (2 sources) Polyene Antifungal, Corticosteroid Start: 11-09-2024 End: 11-16-2024 nystatin-triamcinol one (Mycolog II) cream Indications: Vulvar itching , Candidiasis of vulva Apply topically in the morning and before bedtime. Do all this for 7 days. 15 g 11/09/2024 11/16/2024 Active sucralfate 100 mg/ml oral suspension (2 sources) Aluminum Complex Start: 10-08-2022 Carafate 1 g/10 mL Susp-Oral 1 gm = 10 mL, Oral, QIDACHS, Refills(s) 0 Start Date: 10/08/22 Status: Ordered Completed/Discontinued Medications Medication Drug Class(es) Dates Sig (Normalized) Sig (Original) dexamethasone 1 mg oral tablet (4 sources) Corticosteroid End: 11-09-2024 take 1 tablet by mouth in the morning dexAMETHasone (Decadron) 1 MG tablet Take 1 mg by mouth in the morning and 1 mg in the evening. Take with meals. 11/09/2024 Discontinued Problems Active Problems Problem Classification Problem Date Documented Date [...] [Other gastritis without bleeding] Onset: 10-08-2022 Episodic Immunizations and screening for infectious disease (9 sources) Patient encounter status; Translations: [Encounter for screening for human papillomavirus (HPV)] Onset: 10-20-2022 10-20-2022 Episodic Mycoses (2 sources) Candidiasis of vulva; Translations: [Candidiasis of vulva] 11-09-2024 Episodic Nausea and vomiting (5 sources) Nausea and vomiting; Translations: [Nausea with vomiting, unspecified] Onset: 09-26-2022 Episodic Nonspecific chest pain (2 sources) Other chest pain; Translations: [Other chest pain] Onset: 05-03-2024 Episodic Nutritional deficiencies (2 sources) Vitamin D deficiency; Translations: [Vitamin D deficiency, unspecified] 09-21-2024 Chronic Other inflammatory condition of skin (2 sources) Pruritus of vulva; Translations: [Pruritus vulvae] 11-09-2024 Episodic Other nutritional; endocrine; and metabolic disorders (3 sources) Body mass index 30+ - obesity 09-26-2022 Chronic Other nutritional; endocrine; and metabolic disorders (2 sources) Severe obesity; Translations: [Class 3 severe obesity due to excess calories without serious comorbidity with body mass index (BMI) of 40.0 to 44.9 in adult] 09-21-2024 Chronic Other nutritional; endocrine; and metabolic disorders (2 sources) Weight increased; Translations: [Abnormal weight gain] 09-21-2024 Episodic Other screening for suspected conditions (not mental disorders or infectious disease) (7 sources) Cancer cervix screening status; Translations: [Encounter for screening for malignant neoplasm of cervix] Onset: 10-20-2022 10-20-2022 Episodic Past or Other Problems Problem Classification Problem Date Documented Da te Episodic/Chronic Ovarian cyst (8 sources) Cyst of ovary; Translations: [Cyst of left ovary] Onset: 10-15-2022 09-22-2022 Episodic Results Test Name Value Interpretation Reference Range Facility CBC/ALB/ALT/AST/ALK/CRon Albumin [Mass/Vol] 4.5 g/dL Normal (3.5 - 5.0) [facility] Comment on above: Order Comment: FACIL ITY[facility] [id number] Performed By: #### C BC-D, CMP, UAFLX, ENA6, *GAGE-T, ACAX3, PCR-R, C3-C4, ESRCRP, VD25, CK, HBCA, HBSAB, CCP, RHF #### [facility] [address] [facility], [address] ALK PHOS 65 U/L Normal (38 - 126) [facility] Comment on above: Order Comment: [facility] [id number] Performed By: #### C BC-D, CMP, UAFLX, ENA6, *GAGE-T, ACAX3, PCR-R, C3-C4, ESRCRP, VD25, CK, HBCA, HBSAB, CCP, RHF #### [facility] [address] [facility], [id number] ALT [Catalytic activity/Vol] 75 U/L High (1 - 35) [facility] Comment on above: Order Comment: [facility] [id number] Performed By: #### C BC-D, CMP, UAFLX, ENA6, *GAGE-T, ACAX3, PCR-R, C3-C4, ESRCRP, VD25, CK, HBCA, HBSAB, CCP, RHF #### [facility] [address] [facility], [id number] AST [Catalytic activity/Vol] 43 U/L Normal (15 - 46) [facility] Comment on above: Order Comment: [facility] [id number] Performed By: #### C BC-D, CMP, UAFLX, ENA6, *GAGE-T, ACAX3, PCR-R, C3-C4, ESRCRP, VD25, CK, HBCA, HBSAB, CCP, RHF #### [facility] [address] [facility], [id number] Creatinine [Mass/Vol] 0.78 mg/dL Normal (0.52 - 1.04) [facility] Comment on above: Order Comment: [facility] [id number] Performed By: #### C BC-D, CMP, UAFLX, ENA6, *GAGE-T, ACAX3, PCR-R, C3-C4, ESRCRP, VD25, CK, HBCA, HBSAB, CCP, RHF #### [facility] [address] [facility], [id number] GFR by CKD-EPI 102.8 ML/M1.7 Normal (60.0) [facility] Comment on above: Order Comment: [facility] [id number] Performed By: #### C BC-D, CMP, UAFLX, ENA6, *GAGE-T, ACAX3, PCR-R, C3-C4, ESRCRP, VD25, CK, HBCA, HBSAB, CCP, RHF #### [facility] [address] [facility], [address] Hematocrit (Bld) [Volume fraction] 34.8 % Low (37.0 - 47.0) [facility] Comment on above: Order Comment: [facility] [id number] Performed By: #### C BC-D, CMP, UAFLX, ENA6, *GAGE-T, ACAX3, PCR-R, C3-C4, ESRCRP, VD25, CK, HBCA, HBSAB, CCP, RHF #### [facility] [address] [facility], [address] Hemoglobin (Bld) [Mass/Vol] 11.4 g/dL Low (12.0 - 16.0) [facility] Comment on above: Order Comment: [facility] [id number] Performed By: #### C BC-D, CMP, UAFLX, ENA6, *GAGE-T, ACAX3, PCR-R, C3-C4, ESRCRP, VD25, CK, HBCA, HBSAB, CCP, RHF #### [facility] [address] [facility], [address] MCH (RBC) [Entitic mass] 28.9 pg Normal (27.0 - 33.0) [facility] Comment on above: Order Comment: [facility] [id number] Performed By: #### C BC-D, CMP, UAFLX, ENA6, *GAGE-T, ACAX3, PCR-R, C3-C4, ESRCRP, VD25, CK, HBCA, HBSAB, CCP, RHF #### [facility] [address] [facility], [id number] MCHC (RBC) [Mass/Vol] 32.8 g/dL Normal (30.0 - 37.0) [facility] Comment on above: Order Comment: [facility] [id number] Performed By: #### C BC-D, CMP, UAFLX, ENA6, *GAGE-T, ACAX3, PCR-R, C3-C4, ESRCRP, VD25, CK, HBCA, HBSAB, CCP, RHF #### [facility] [address] [facility], [id number] MCV (RBC) [Entitic vol] 88.1 fL Normal (81.0 - 99.0) [facility] Comment on above: Order Comment: [facility] [id number] Performed By: #### C BC-D, CMP, UAFLX, ENA6, *GAGE-T, ACAX3, PCR-R, C3-C4, ESRCRP, VD25, CK, HBCA, HBSAB, CCP, RHF #### [facility] [address] [facility], [id number] [phone] PLT 325 x10^3ul Normal (130 - 400) [facility] Comment on above: Order Comment: [facility] [id number] Performed By: #### C BC-D, CMP, UAFLX, ENA6, *GAGE-T, ACAX3, PCR-R, C3-C4, ESRCRP, VD25, CK, HBCA, HBSAB, CCP, RHF #### [facility] [address] [facility], [id number] RBC 3.95 x10^6ul Low (4.20 - 5.40) [facility] Comment on above: Order Comment: [facility] [id number] Performed By: #### C BC-D, CMP, UAFLX, ENA6, *GAGE-T, ACAX3, PCR-R, C3-C4, ESRCRP, VD25, CK, HBCA, HBSAB, CCP, RHF #### [facility] [address] [facility], [id number] WBC 6.01 x10^3ul Normal (3.80 - 10.60) [facility] Comment on above: Order Comment: [facility]IL [facility] [id number] Performed By: #### C BC-D, CMP, UAFLX, ENA6, *GAGE-T, ACAX3, PCR-R, C3-C4, ESRCRP, VD25, CK, HBCA, HBSAB, CCP, RHF #### [facility] [address] [facility], [id number] Laboratory - Cytologyon 10-30 Field Hand Cyto stain Nom (Cvx/Vag) [ID] Comment [facility] Comment on above: Jamee Rios, Cyto logist (ASCP) Cytology report Cyto stain Doc (Cvx/Vag) Comment [facility] Comment on above: NEGATIVE FOR INTRAEP ITHELIAL LESION OR MALIGNANCY. Cytology report Cyto stain.thin prep Doc (Cvx/Vag) Comment [facility] Comment on above: This liquid based Th inPrep(R) pap test was screened with the use of an image guided system. Statement of adequacy Cyto stain (Cvx/Vag) [Interp] Comment [facility] Comment on above: Satisfactory for ivana luation. Endocervical and/or squamous metaplastic cells (endocervical component) are present. Laboratory - Microbiology an d Antimicrobial susceptibilityon 11-11-2024 HPV 16+18+31+33+35+39+ 45+51+52+56+58+59+ 66+68 DNA Probe+sig amp Ql (Cvx) Negative Negative [facility] Comment on above: This nucleic acid am plification test detects fourteen high- risk HPV types (16,18,31,33,35,39,45,51,52,56,58,59,66,68) without differentiation. Microscopic observation Other stain Nom (Unsp spec) . [facility] Laboratory - Miscellaneous t estson 11-11-2024 Service comment (Unsp spec) [Interp] Comment [facility] Comment on above: The Pap smear is a s creening test designed to aid in the detection of premalignant and malignant conditions of the uterine cervix. It is not a diagnostic procedure and should not be used as the sole means of detecting cervical cancer. Both false-positive and false-negative reports do occur. No Panel Informationon 11-11 Diagnosis ICD code [Identifier] Comment [facility] Comment on above: Z12.4 Z11.51 Performed at: 01 - [facility] [address] [id number] Esthetician/Spa Coordinator: Magy John MD, Phone: [phone] Performed at: 02 - [facility] [address] [id number] Esthetician/Spa Coordinator: Magy John MD, Phone: [phone] Specimen Comment: No. of containers..01 [facility] - CRPon 11-11-2024 CRP EXTENDED RANGE 2.14 MG/L Normal (0.00 - 5.00) [facility] Comment on above: Performed By: #### C BC-D, CMP, UAFLX, ENA6, *GAGE-T, ACAX3, PCR-R, C3-C4, ESRCRP, VD25, CK, HBCA, HBSAB, CCP, RHF #### [facility] [address] [facility], [id number] SED RATE WEST. 13 MM/HR Normal (0 - 25) [facility] Comment on above: Performed By: #### C BC-D, CMP, UAFLX, ENA6, *GAGE-T, ACAX3, PCR-R, C3-C4, ESRCRP, VD25, CK, HBCA, HBSAB, CCP, RHF #### [facility] [address] [facility], [id number] C3 AND C4on 10-07-2024 C 3 165 MG/DL Normal (88 - 165) [facility] Comment on above: Performed By: #### C BC-D, CMP, UAFLX, ENA6, *GAGE-T, ACAX3, PCR-R, C3-C4, ESRCRP, VD25, CK, HBCA, HBSAB, CCP, RHF #### [facility] [address] [facility], [id number] C 4 39 MG/DL Normal (14 - 44) [facility] Comment on above: Performed By: #### C BC-D, CMP, UAFLX, ENA6, *GAGE-T, ACAX3, PCR-R, C3-C4, ESRCRP, VD25, CK, HBCA, HBSAB, CCP, RHF #### [facility] [address] [facility], [id number] CBC/ALB/ALT/AST/ALK/CRon Albumin [Mass/Vol] 4.4 g/dL Normal (3.5 - 5.0) [facility] Comment on above: Order Comment: [facility]IL [facility] [id number] Performed By: #### C BC-D, CMP, UAFLX, ENA6, *GAGE-T, ACAX3, PCR-R, C3-C4, ESRCRP, VD25, CK, HBCA, HBSAB, CCP, RHF #### [facility] [address] [facility], [id number] ALK PHOS 63 U/L Normal (38 - 126) [facility] Comment on above: Order Comment: [facility] [id number] Performed By: #### C BC-D, CMP, UAFLX, ENA6, *GAGE-T, ACAX3, PCR-R, C3-C4, ESRCRP, VD25, CK, HBCA, HBSAB, CCP, RHF #### [facility] [address] [facility], [id number] ALT [Catalytic activity/Vol] 102 U/L High (1 - 35) [facility] Comment on above: Order Comment: [facility]IL [facility]: [facility] [id number] Performed By: #### C BC-D, CMP, UAFLX, ENA6, *GGAE-T, ACAX3, PCR-R, C3-C4, ESRCRP, VD25, CK, HBCA, HBSAB, CCP, RHF #### [facility] [address] [facility], [id number] AST [Catalytic activity/Vol] 45 U/L Normal (15 - 46) [facility] Comment on above: Order Comment: [facility]: [facility] [id number] Performed By: #### C BC-D, CMP, UAFLX, ENA6, *GAGE-T, ACAX3, PCR-R, C3-C4, ESRCRP, VD25, CK, HBCA, HBSAB, CCP, RHF #### [facility] [address] [facility], [id number] Creatinine [Mass/Vol] 0.66 mg/dL Normal (0.52 - 1.04) [facility] Comment on above: Order Comment: [facility]IL [facility] [id number] Performed By: #### C BC-D, CMP, UAFLX, ENA6, *GAGE-T, ACAX3, PCR-R, C3-C4, ESRCRP, VD25, CK, HBCA, HBSAB, CCP, RHF #### [facility] [address] [facility], [id number] GFR by CKD-EPI 119.5 ML/M1.7 Normal (60.0) [facility] Comment on above: Order Comment: [facility]IL [facility] [id number] Performed By: #### C BC-D, CMP, UAFLX, ENA6, *GAGE-T, ACAX3, PCR-R, C3-C4, ESRCRP, VD25, CK, HBCA, HBSAB, CCP, RHF #### [facility] [address] [facility], [id number] Hematocrit (Bld) [Volume fraction] 37.4 % Normal (37.0 - 47.0) [facility] Comment on above: Order Comment: [facility]IL [facility] [id number] Performed By: #### C BC-D, CMP, UAFLX, ENA6, *GAGE-T, ACAX3, PCR-R, C3-C4, ESRCRP, VD25, CK, HBCA, HBSAB, CCP, RHF #### [facility] [address] [facility], [address] Hemoglobin (Bld) [Mass/Vol] 11.9 g/dL Low (12.0 - 16.0) [facility] Comment on above: Order Comment: [facility]IL [facility] [id number] Performed By: #### C BC-D, CMP, UAFLX, ENA6, *GAGE-T, ACAX3, PCR-R, C3-C4, ESRCRP, VD25, CK, HBCA, HBSAB, CCP, RHF #### [facility] [address] [facility], [address] MCH (RBC) [Entitic mass] 27.8 pg Normal (27.0 - 33.0) [facility] Comment on above: Order Comment: [facility]IL [facility]: [facility] [id number] Performed By: #### C BC-D, CMP, UAFLX, ENA6, *GAGE-T, ACAX3, PCR-R, C3-C4, ESRCRP, VD25, CK, HBCA, HBSAB, CCP, RHF #### [facility] [address] [facility], [address] MCHC (RBC) [Mass/Vol] 31.8 g/dL Normal (30.0 - 37.0) [facility] Comment on above: Order Comment: [facility] [id number] Performed By: #### C BC-D, CMP, UAFLX, ENA6, *GAGE-T, ACAX3, PCR-R, C3-C4, ESRCRP, VD25, CK, HBCA, HBSAB, CCP, RHF #### [facility] [address] [facility], [address] MCV (RBC) [Entitic vol] 87.4 fL Normal (81.0 - 99.0) [facility] Comment on above: Order Comment: [facility] [id number] Performed By: #### C BC-D, CMP, UAFLX, ENA6, *GAGE-T, ACAX3, PCR-R, C3-C4, ESRCRP, VD25, CK, HBCA, HBSAB, CCP, RHF #### [facility] [address] [facility], [id number] PLT 314 x10^3ul Normal (130 - 400) [facility] Comment on above: Order Comment: [facility] [id number] Performed By: #### C BC-D, CMP, UAFLX, ENA6, *GAGE-T, ACAX3, PCR-R, C3-C4, ESRCRP, VD25, CK, HBCA, HBSAB, CCP, RHF #### [facility] [address] [facility], [id number] RBC 4.28 x10^6ul Normal (4.20 - 5.40) [facility] Comment on above: Order Comment: [facility] [id number] Performed By: #### C BC-D, CMP, UAFLX, ENA6, *GAGE-T, ACAX3, PCR-R, C3-C4, ESRCRP, VD25, CK, HBCA, HBSAB, CCP, RHF #### [facility] [address] [facility], [id number] WBC 7.08 x10^3ul Normal (3.80 - 10.60) [facility] Comment on above: Order Comment: [facility] [id number] Performed By: #### C BC-D, CMP, UAFLX, ENA6, *GAGE-T, ACAX3, PCR-R, C3-C4, ESRCRP, VD25, CK, HBCA, HBSAB, CCP, RHF #### [facility] [address] [facility], [id number] SED RATE - CRPon 10-07-2024 CRP EXTENDED RANGE 1.49 MG/L Normal (0.00 - 5.00) [facility] Comment on above: Performed By: #### C BC-D, CMP, UAFLX, ENA6, *GAGE-T, ACAX3, PCR-R, C3-C4, ESRCRP, VD25, CK, HBCA, HBSAB, CCP, RHF #### [facility] [address] [facility], [id number] SED RATE WEST. 6 MM/HR Normal (0 - 25) [facility] Comment on above: Performed By: #### C BC-D, CMP, UAFLX, ENA6, *GAGE-T, ACAX3, PCR-R, C3-C4, ESRCRP, VD25, CK, HBCA, HBSAB, CCP, RHF #### [facility] [address] [facility], [id number] GAGE SUBTYPING (8)on 08-24-19 ANTI CENTROMERE B <0.4 Normal (0.0 - 10.0) [facility] Comment on above: Result Comment: PERF ORMED ON PHADIA EFFECTIVE 11-17-2022 Performed By: #### C BC-D, CMP, UAFLX, ENA6, *GAGE-T, ACAX3, PCR-R, C3-C4, ESRCRP, VD25, CK, HBCA, HBSAB, CCP, RHF #### [facility] [address] [facility], [id number] ANTI ds DNA 0.8 IU/ML Normal (0.0 - 15.0) [facility] Comment on above: Performed By: #### C BC-D, CMP, UAFLX, ENA6, *GAGE-T, ACAX3, PCR-R, C3-C4, ESRCRP, VD25, CK, HBCA, HBSAB, CCP, RHF #### [facility] [address] [facility], [id number] ANTI SHERMAN-1 <0.3 Normal (0.0 - 10.0) [facility] Comment on above: Performed By: #### C BC-D, CMP, UAFLX, ENA6, *GAGE-T, ACAX3, PCR-R, C3-C4, ESRCRP, VD25, CK, HBCA, HBSAB, CCP, RHF #### [facility] [address] [facility], [id number] ANTI TICKER INSTALLER (U1RNP) 0.9 U/mL Normal (0.0 - 10.0) [facility] Comment on above: Performed By: #### C BC-D, CMP, UAFLX, ENA6, *GAGE-T, ACAX3, PCR-R, C3-C4, ESRCRP, VD25, CK, HBCA, HBSAB, CCP, RHF #### [facility] [address] [place] [address] Rd. [facility], [id number] ANTI SCL 70 <0.6 Normal (0.0 - 10.0) [facility] Comment on above: Performed By: #### C BC-D, CMP, UAFLX, ENA6, *GAGE-T, ACAX3, PCR-R, C3-C4, ESRCRP, VD25, CK, HBCA, HBSAB, CCP, RHF #### [facility] [address] [place] [address] Rd. [facility], [id number] ANTI SWANSON <0.7 Normal (0.0 - 10.0) [facility] Comment on above: Performed By: #### C BC-D, CMP, UAFLX, ENA6, *GAGE-T, ACAX3, PCR-R, C3-C4, ESRCRP, VD25, CK, HBCA, HBSAB, CCP, RHF #### [facility] [address] [place] [address] Rd. [facility], [address] ANTI SSB/LA <0.4 Normal (0.0 - 10.0) [facility] Comment on above: Performed By: #### C BC-D, CMP, UAFLX, ENA6, *GAGE-T, ACAX3, PCR-R, C3-C4, ESRCRP, VD25, CK, HBCA, HBSAB, CCP, RHF #### [facility] [address] [place] [address] Rd. [facility], [address] SSA/RO52 <0.3 Normal (0.0 - 10.0) [facility] Comment on above: Performed By: #### C BC-D, CMP, UAFLX, ENA6, *GAGE-T, ACAX3, PCR-R, C3-C4, ESRCRP, VD25, CK, HBCA, HBSAB, CCP, RHF #### [facility] [address] [facility], [address] SSA/RO60 <0.4 Normal (0.0 - 10.0) [facility] Comment on above: Performed By: #### C BC-D, CMP, UAFLX, ENA6, *GAGE-T, ACAX3, PCR-R, C3-C4, ESRCRP, VD25, CK, HBCA, HBSAB, CCP, RHF #### [facility] [address] [facility], [address] GAGE with TITERon 08-23-2024 GAGE by HEp-2 CELLS Positive High (NEG - NEG) [facility] Comment on above: Performed By: #### C BC-D, CMP, UAFLX, ENA6, *GAGE-T, ACAX3, PCR-R, C3-C4, ESRCRP, VD25, CK, HBCA, HBSAB, CCP, RHF #### [facility] [address] [facility], [address] GAGE TITER MIXED High (<1:40 - 1:40) [facility] Comment on above: Result Comment: 1:80 GAGE PATTERN = CENTROMERE1:320 GAGE PATTERN = NUCLEOLAR Performed By: #### C BC-D, CMP, UAFLX, ENA6, *GAGE-T, ACAX3, PCR-R, C3-C4, ESRCRP, VD25, CK, HBCA, HBSAB, CCP, RHF #### [facility] [address] [facility], [id number] C3 AND C4on 08-23-2024 C 3 143 MG/DL Normal (88 - 165) [facility] Comment on above: Performed By: #### C BC-D, CMP, UAFLX, ENA6, *GAGE-T, ACAX3, PCR-R, C3-C4, ESRCRP, VD25, CK, HBCA, HBSAB, CCP, RHF #### [facility] [address] [facility], [id number] C 4 26 MG/DL Normal (14 - 44) [facility] Comment on above: Performed By: #### C BC-D, CMP, UAFLX, ENA6, *GAGE-T, ACAX3, PCR-R, C3-C4, ESRCRP, VD25, CK, HBCA, HBSAB, CCP, RHF #### [facility] [address] [place] [address] Rd. [facility], [id number] CARDIOLIPIN IGG, IGA, IGMon 08-23-2024 MARIO, IgA 1.5 U/mL Low (14.0 - 20.0) [facility] Comment on above: Performed By: #### C BC-D, CMP, UAFLX, ENA6, *GAGE-T, ACAX3, PCR-R, C3-C4, ESRCRP, VD25, CK, HBCA, HBSAB, CCP, RHF #### [facility] [address] [facility], [id number] MARIO, IgG 1.0 U/mL Low (10.0 - 40.0) [facility] Comment on above: Performed By: #### C BC-D, CMP, UAFLX, ENA6, *GAGE-T, ACAX3, PCR-R, C3-C4, ESRCRP, VD25, CK, HBCA, HBSAB, CCP, RHF #### [facility] [address] [facility], [address] MARIO, IgM 29.0 U/mL Normal (10.0 - 40.0) [facility] Comment on above: Result Comment: Resu lt between 10.0 - 40.0 U/mL is considered weak positive -recommend initially retesting the patient after 8 - 12 weeks and then as clinically indicated. Performed By: #### C BC-D, CMP, UAFLX, ENA6, *GAGE-T, ACAX3, PCR-R, C3-C4, ESRCRP, VD25, CK, HBCA, HBSAB, CCP, RHF #### [facility] [address] [facility], [id number] CBC WITH DIFFon 08-23-[address] 0.03 x10^3ul Normal (0.00 - 0.16) [facility] Comment on above: Order Comment: FACIL ITY: [facility] [phone] Performed By: #### C BC-D, CMP, UAFLX, ENA6, *GAGE-T, ACAX3, PCR-R, C3-C4, ESRCRP, VD25, CK, HBCA, HBSAB, CCP, RHF #### [facility] [address] [facility], [phone] Basophils/100 WBC (Bld) 0.2 % Normal () [facility] Comment on above: Order Comment: FACIL ITY: [facility] [id number] Performed By: #### C BC-D, CMP, UAFLX, ENA6, *GAGE-T, ACAX3, PCR-R, C3-C4, ESRCRP, VD25, CK, HBCA, HBSAB, CCP, RHF #### [facility] [address] [facility], [phone] 0.00 x10^3ul Normal (0.00 - 0.40) [facility] Comment on above: Order Comment: FACIL ITY: [facility] [phone] Performed By: #### C BC-D, CMP, UAFLX, ENA6, *GAGE-T, ACAX3, PCR-R, C3-C4, ESRCRP, VD25, CK, HBCA, HBSAB, CCP, RHF #### [facility] [address] [facility], [phone] Eosinophils/100 WBC (Bld) 0.0 % Normal () [facility] Comment on above: Order Comment: FACIL ITY: [facility] [phone] Performed By: #### C BC-D, CMP, UAFLX, ENA6, *GAGE-T, ACAX3, PCR-R, C3-C4, ESRCRP, VD25, CK, HBCA, HBSAB, CCP, RHF #### [facility] [address] [facility], [id number] Hematocrit (Bld) [Volume fraction] 39.9 % Normal (37.0 - 47.0) [facility] Comment on above: Order Comment: FACIL ITY: [facility] [phone] Performed By: #### C BC-D, CMP, UAFLX, ENA6, *GAGE-T, ACAX3, PCR-R, C3-C4, ESRCRP, VD25, CK, HBCA, HBSAB, CCP, RHF #### [facility] [address] [facility], [id number] Hemoglobin (Bld) [Mass/Vol] 12.9 g/dL Normal (12.0 - 16.0) [facility] Comment on above: Order Comment: FACIL ITY: [facility] [id number] Performed By: #### C BC-D, CMP, UAFLX, ENA6, *GAGE-T, ACAX3, PCR-R, C3-C4, ESRCRP, VD25, CK, HBCA, HBSAB, CCP, RHF #### [facility] [address] [facility], [id number] IMMATURE GRAN CT 0.11 x10^3ul Normal (0.00 - 0.11) [facility] Comment on above: Order Comment: FACIL ITY: [facility] [phone] Performed By: #### C BC-D, CMP, UAFLX, ENA6, *GAGE-T, ACAX3, PCR-R, C3-C4, ESRCRP, VD25, CK, HBCA, HBSAB, CCP, RHF #### [facility] [address] [facility], [id number] IMMATURE GRANS (IG) 0.8 % Normal () [facility] Comment on above: Order Comment: FACIL ITY: [facility] [phone] Performed By: #### C BC-D, CMP, UAFLX, ENA6, *GAGE-T, ACAX3, PCR-R, C3-C4, ESRCRP, VD25, CK, HBCA, HBSAB, CCP, RHF #### [facility] [address] [facility], [id number] LYMPHOCYTE CT 1.98 x10^3ul Normal (0.96 - 5.40) [facility] Comment on above: Order Comment: FACIL ITY: [facility] [id number] Performed By: #### C BC-D, CMP, UAFLX, ENA6, *GAGE-T, ACAX3, PCR-R, C3-C4, ESRCRP, VD25, CK, HBCA, HBSAB, CCP, RHF #### [facility] [address] [facility], [id number] LYMPS 14.9 % Normal () [facility] Comment on above: Order Comment: FACIL ITY: [facility] [id number] Performed By: #### C BC-D, CMP, UAFLX, ENA6, *GAGE-T, ACAX3, PCR-R, C3-C4, ESRCRP, VD25, CK, HBCA, HBSAB, CCP, RHF #### [facility] [address] [facility], [id number] MCH (RBC) [Entitic mass] 27.5 pg Normal (27.0 - 33.0) [facility] Comment on above: Order Comment: FACIL ITY: [facility] [id number] Performed By: #### C BC-D, CMP, UAFLX, ENA6, *GAGE-T, ACAX3, PCR-R, C3-C4, ESRCRP, VD25, CK, HBCA, HBSAB, CCP, RHF #### [facility] [address] [facility], [address] MCHC (RBC) [Mass/Vol] 32.3 g/dL Normal (30.0 - 37.0) [facility] Comment on above: Order Comment: FACIL ITY: [facility] [phone] Performed By: #### C BC-D, CMP, UAFLX, ENA6, *GAGE-T, ACAX3, PCR-R, C3-C4, ESRCRP, VD25, CK, HBCA, HBSAB, CCP, RHF #### [facility] [address] [facility], [address] MCV (RBC) [Entitic vol] 85.1 fL Normal (81.0 - 99.0) [facility] Comment on above: Order Comment: FACIL ITY: [facility] [phone] Performed By: #### C BC-D, CMP, UAFLX, ENA6, *GAGE-T, ACAX3, PCR-R, C3-C4, ESRCRP, VD25, CK, HBCA, HBSAB, CCP, RHF #### [facility] [address] [facility], [address] 0.81 x10^3ul Normal (0.10 - 0.90) [facility] Comment on above: Order Comment: FACIL ITY: [facility] [id number] Performed By: #### C BC-D, CMP, UAFLX, ENA6, *GAGE-T, ACAX3, PCR-R, C3-C4, ESRCRP, VD25, CK, HBCA, HBSAB, CCP, RHF #### [facility] [address] [facility], [address] MONOS 6.1 % Normal () [facility] Comment on above: Order Comment: FACIL ITY: [facility] [id number] Performed By: #### C BC-D, CMP, UAFLX, ENA6, *GAGE-T, ACAX3, PCR-R, C3-C4, ESRCRP, VD25, CK, HBCA, HBSAB, CCP, RHF #### [facility] [address] [facility], [address] 10.37 x10^3ul High (1.50 - 7.00) [facility] Comment on above: Order Comment: FACIL ITY: [facility] [id number] Performed By: #### C BC-D, CMP, UAFLX, ENA6, *GAGE-T, ACAX3, PCR-R, C3-C4, ESRCRP, VD25, CK, HBCA, HBSAB, CCP, RHF #### [facility] [address] [facility], [address] PLT 379 x10^3ul Normal (130 - 400) [facility] Comment on above: Order Comment: FACIL ITY: [facility] [id number] Performed By: #### C BC-D, CMP, UAFLX, ENA6, *GAGE-T, ACAX3, PCR-R, C3-C4, ESRCRP, VD25, CK, HBCA, HBSAB, CCP, RHF #### [facility] [address] [facility], [address] RBC 4.69 x10^6ul Normal (4.20 - 5.40) [facility] Comment on above: Order Comment: FACIL ITY: [facility] [phone] Performed By: #### C BC-D, CMP, UAFLX, ENA6, *GAGE-T, ACAX3, PCR-R, C3-C4, ESRCRP, VD25, CK, HBCA, HBSAB, CCP, RHF #### [facility] [address] [facility], [id number] RDW-SD 46.0 fl Normal (37.0 - 49.0) [facility] Comment on above: Order Comment: FACIL ITY: [facility] [id number] Performed By: #### C BC-D, CMP, UAFLX, ENA6, *GAGE-T, ACAX3, PCR-R, C3-C4, ESRCRP, VD25, CK, HBCA, HBSAB, CCP, RHF #### [facility] [address] [facility], [address] SEGS 78.0 % Normal () [facility] Comment on above: Order Comment: FACIL ITY: [facility] [phone] Performed By: #### C BC-D, CMP, UAFLX, ENA6, *GAGE-T, ACAX3, PCR-R, C3-C4, ESRCRP, VD25, CK, HBCA, HBSAB, CCP, RHF #### [facility] [address] [facility], [address] WBC 13.30 x10^3ul High (3.80 - 10.60) [facility] Comment on above: Order Comment: FACIL ITY: [facility] [id number] Performed By: #### C BC-D, CMP, UAFLX, ENA6, *GAGE-T, ACAX3, PCR-R, C3-C4, ESRCRP, VD25, CK, HBCA, HBSAB, CCP, RHF #### [facility] [address] [facility], [id number] COMP MET PANEL w GFR(EPI)on 08-23-2024 Albumin [Mass/Vol] 4.4 g/dL Normal (3.5 - 5.0) [facility] Comment on above: Performed By: #### C BC-D, CMP, UAFLX, ENA6, *GAGE-T, ACAX3, PCR-R, C3-C4, ESRCRP, VD25, CK, HBCA, HBSAB, CCP, RHF #### [facility] [address] [facility], [address] ALK PHOS 64 U/L Normal (38 - 126) [facility] Comment on above: Performed By: #### C BC-D, CMP, UAFLX, ENA6, *GAGE-T, ACAX3, PCR-R, C3-C4, ESRCRP, VD25, CK, HBCA, HBSAB, CCP, RHF #### [facility] [address] [facility], [id number] ALT [Catalytic activity/Vol] 57 U/L High (1 - 35) [facility] Comment on above: Performed By: #### C BC-D, CMP, UAFLX, ENA6, *GAGE-T, ACAX3, PCR-R, C3-C4, ESRCRP, VD25, CK, HBCA, HBSAB, CCP, RHF #### [facility] [address] [facility], [id number] AST [Catalytic activity/Vol] 27 U/L Normal (15 - 46) [facility] Comment on above: Performed By: #### C BC-D, CMP, UAFLX, ENA6, *GAGE-T, ACAX3, PCR-R, C3-C4, ESRCRP, VD25, CK, HBCA, HBSAB, CCP, RHF #### [facility] [address] [facility], [id number] Bilirubin [Mass/Vol] 0.4 mg/dL Normal (0.2 - 1.3) [facility] Comment on above: Performed By: #### C BC-D, CMP, UAFLX, ENA6, *GAGE-T, ACAX3, PCR-R, C3-C4, ESRCRP, VD25, CK, HBCA, HBSAB, CCP, RHF #### [facility] [address] [facility], [id number] Calcium [Mass/Vol] 9.6 mg/dL Normal (8.6 - 10.6) [facility] Comment on above: Performed By: #### C BC-D, CMP, UAFLX, ENA6, *GAGE-T, ACAX3, PCR-R, C3-C4, ESRCRP, VD25, CK, HBCA, HBSAB, CCP, RHF #### [facility] [address] [facility], [id number] Chloride [Moles/Vol] 110 mmol/L High (98 - 107) [facility] Comment on above: Performed By: #### C BC-D, CMP, UAFLX, ENA6, *GAGE-T, ACAX3, PCR-R, C3-C4, ESRCRP, VD25, CK, HBCA, HBSAB, CCP, RHF #### [facility] [address] [facility], [id number] CO2 [Moles/Vol] 24 mmol/L Normal (22 - 30) [facility] Comment on above: Performed By: #### C BC-D, CMP, UAFLX, ENA6, *AGGE-T, ACAX3, PCR-R, C3-C4, ESRCRP, VD25, CK, HBCA, HBSAB, CCP, RHF #### [facility] [address] [facility], [id number] Creatinine [Mass/Vol] 0.62 mg/dL Normal (0.52 - 1.04) [facility] Comment on above: Performed By: #### C BC-D, CMP, UAFLX, ENA6, *GAGE-T, ACAX3, PCR-R, C3-C4, ESRCRP, VD25, CK, HBCA, HBSAB, CCP, RHF #### [facility] [address] [facility], [address] GFR by CKD-EPI 121.3 ML/M1.7 Normal (60.0) [facility] Comment on above: Performed By: #### C BC-D, CMP, UAFLX, ENA6, *GAGE-T, ACAX3, PCR-R, C3-C4, ESRCRP, VD25, CK, HBCA, HBSAB, CCP, RHF #### [facility] [address] [facility], [address] Glucose [Mass/Vol] 91 mg/dL Normal (74 - 106) [facility] Comment on above: Performed By: #### C BC-D, CMP, UAFLX, ENA6, *GAGE-T, ACAX3, PCR-R, C3-C4, ESRCRP, VD25, CK, HBCA, HBSAB, CCP, RHF #### [facility] [address] [facility], [id number] Potassium [Moles/Vol] 4.5 mmol/L Normal (3.5 - 5.1) [facility] Comment on above: Performed By: #### C BC-D, CMP, UAFLX, ENA6, *GAGE-T, ACAX3, PCR-R, C3-C4, ESRCRP, VD25, CK, HBCA, HBSAB, CCP, RHF #### [facility] [address] [facility], [id number] Protein [Mass/Vol] 6.9 g/dL Normal (6.3 - 8.2) [facility] Comment on above: Performed By: #### C BC-D, CMP, UAFLX, ENA6, *GAGE-T, ACAX3, PCR-R, C3-C4, ESRCRP, VD25, CK, HBCA, HBSAB, CCP, RHF #### [facility] [address] [facility], [id number] Sodium [Moles/Vol] 137 mmol/L Normal (137 - 145) [facility] Comment on above: Performed By: #### C BC-D, CMP, UAFLX, ENA6, *GAGE-T, ACAX3, PCR-R, C3-C4, ESRCRP, VD25, CK, HBCA, HBSAB, CCP, RHF #### [facility] [address] [facility], [address] Urea nitrogen [Mass/Vol] 14 mg/dL Normal (4 - 25) [facility] Comment on above: Performed By: #### C BC-D, CMP, UAFLX, ENA6, *GAGE-T, ACAX3, PCR-R, C3-C4, ESRCRP, VD25, CK, HBCA, HBSAB, CCP, RHF #### [facility] [address] [facility], [address] CPKon 08-23-2024 CK [Catalytic activity/Vol] 30 U/L Normal (30 - 135) [facility] Comment on above: Performed By: #### C BC-D, CMP, UAFLX, ENA6, *GAGE-T, ACAX3, PCR-R, C3-C4, ESRCRP, VD25, CK, HBCA, HBSAB, CCP, RHF #### [facility] [address] [facility], [address] HEP B CORE AB, TOTALon 08-23 HEP B CORE AB Negative Normal (NEG - NEG) [facility] Comment on above: Performed By: #### C BC-D, CMP, UAFLX, ENA6, *GAGE-T, ACAX3, PCR-R, C3-C4, ESRCRP, VD25, CK, HBCA, HBSAB, CCP, RHF #### [facility] [address] [facility], [address] HEP B SURF ABon 08-23-2024 HEP B SURF AB Negative Normal (NEG - NEG) [facility] Comment on above: Performed By: #### C BC-D, CMP, UAFLX, ENA6, *GAGE-T, ACAX3, PCR-R, C3-C4, ESRCRP, VD25, CK, HBCA, HBSAB, CCP, RHF #### [facility] [address] [facility], [address] PROTEIN AND CREATININE (RAND OM)on 08-23-2024 Creatinine [Mass/Vol] 62.8 mg/dL Normal (20 - 320) [facility] Comment on above: Performed By: #### C BC-D, CMP, UAFLX, ENA6, *GAGE-T, ACAX3, PCR-R, C3-C4, ESRCRP, VD25, CK, HBCA, HBSAB, CCP, RHF #### [facility] [address] [facility], [id number] Protein (U) [Mass/Vol] 5.0 mg/dL Normal (0.0 - 12.0) [facility] Comment on above: Result Comment: PROT EIN, URINE = < 5.0 MG/DL PROTEIN, URINE MIN DETECTION = 5.0 MG/DL Performed By: #### C BC-D, CMP, UAFLX, ENA6, *GAGE-T, ACAX3, PCR-R, C3-C4, ESRCRP, VD25, CK, HBCA, HBSAB, CCP, RHF #### [facility] [address] [facility], [address] URINE PROTEIN/CREAT RATIO 80 MG/G CR Normal (21 - 161) [facility] Comment on above: Performed By: #### C BC-D, CMP, UAFLX, ENA6, *GAGE-T, ACAX3, PCR-R, C3-C4, ESRCRP, VD25, CK, HBCA, HBSAB, CCP, RHF #### [facility] [address] [facility], [id number] RF FACTORon 08-23-2024 RF FACTOR <9 Normal (0 - 12) [facility] Comment on above: Result Comment: RF F ACTOR = LESS THAN 9 IU/ML RF FACTOR MIN. DETECTION = 9 IU/ML. Performed By: #### C BC-D, CMP, UAFLX, ENA6, *GAGE-T, ACAX3, PCR-R, C3-C4, ESRCRP, VD25, CK, HBCA, HBSAB, CCP, RHF #### [facility] [address] [facility], [address] SED RATE - CRPon 08-23-2024 CRP EXTENDED RANGE <0.30 Normal (0.00 - 5.00) [facility] Comment on above: Performed By: #### C BC-D, CMP, UAFLX, ENA6, *GAGE-T, ACAX3, PCR-R, C3-C4, ESRCRP, VD25, CK, HBCA, HBSAB, CCP, RHF #### [facility] [address] [facility], [address] SED RATE WEST. 8 MM/HR Normal (0 - 25) [facility] Comment on above: Performed By: #### C BC-D, CMP, UAFLX, ENA6, *GAGE-T, ACAX3, PCR-R, C3-C4, ESRCRP, VD25, CK, HBCA, HBSAB, CCP, RHF #### [facility] [address] [facility], [address] URINALYSIS WITH REFLEX CULTU REon 08-23-2024 ALBUMIN Negative Normal (NONE - NEG) [facility] Comment on above: Performed By: #### C BC-D, CMP, UAFLX, ENA6, *GAGE-T, ACAX3, PCR-R, C3-C4, ESRCRP, VD25, CK, HBCA, HBSAB, CCP, RHF #### [facility] [address] [facility], [address] BACTERIA OCC Normal (NONE - OCC) [facility] Comment on above: Performed By: #### C BC-D, CMP, UAFLX, ENA6, *GAGE-T, ACAX3, PCR-R, C3-C4, ESRCRP, VD25, CK, HBCA, HBSAB, CCP, RHF #### [facility] [address] [facility], [address] Bilirubin Ql (U) Negative Normal (NEG) [facility] Comment on above: Performed By: #### C BC-D, CMP, UAFLX, ENA6, *GAGE-T, ACAX3, PCR-R, C3-C4, ESRCRP, VD25, CK, HBCA, HBSAB, CCP, RHF #### [facility] [address] [facility], [address] CHARACTER CLEAR Normal (CLEAR - HAZY) [facility] Comment on above: Performed By: #### C BC-D, CMP, UAFLX, ENA6, *GAGE-T, ACAX3, PCR-R, C3-C4, ESRCRP, VD25, CK, HBCA, HBSAB, CCP, RHF #### [facility] [address] [facility], [address] Color (U) P YEL Normal (P YEL - L AMB) [facility] Comment on above: Performed By: #### C BC-D, CMP, UAFLX, ENA6, *GAGE-T, ACAX3, PCR-R, C3-C4, ESRCRP, VD25, CK, HBCA, HBSAB, CCP, RHF #### [facility] [address] [facility], [address] Glucose Ql (U) Negative Normal (NEG) [facility] Comment on above: Performed By: #### C BC-D, CMP, UAFLX, ENA6, *GAGE-T, ACAX3, PCR-R, C3-C4, ESRCRP, VD25, CK, HBCA, HBSAB, CCP, RHF #### [facility] [address] [facility], [address] Ketones Ql (U) Negative Normal (NEG) [facility] Comment on above: Performed By: #### C BC-D, CMP, UAFLX, ENA6, *GAGE-T, ACAX3, PCR-R, C3-C4, ESRCRP, VD25, CK, HBCA, HBSAB, CCP, RHF #### [facility] [address] [facility], [address] LEUK. ESTERASE Negative Normal (NEG) [facility] Comment on above: Performed By: #### C BC-D, CMP, UAFLX, ENA6, *GAGE-T, ACAX3, PCR-R, C3-C4, ESRCRP, VD25, CK, HBCA, HBSAB, CCP, RHF #### [facility] [address] [facility], [address] Mucus Ql (Urine sed) OCC Normal (NONE - OCC) [facility] Comment on above: Performed By: #### C BC-D, CMP, UAFLX, ENA6, *GAEG-T, ACAX3, PCR-R, C3-C4, ESRCRP, VD25, CK, HBCA, HBSAB, CCP, RHF #### [facility] [address] [facility], [address] Nitrite Ql (U) Negative Normal (NEG) [facility] Comment on above: Performed By: #### C BC-D, CMP, UAFLX, ENA6, *GAGE-T, ACAX3, PCR-R, C3-C4, ESRCRP, VD25, CK, HBCA, HBSAB, CCP, RHF #### [facility] [address] [facility], [address] OCCULT BLD. Negative Normal (NEG) [facility] Comment on above: Performed By: #### C BC-D, CMP, UAFLX, ENA6, *GAGE-T, ACAX3, PCR-R, C3-C4, ESRCRP, VD25, CK, HBCA, HBSAB, CCP, RHF #### [facility] [address] [facility], [address] pH (U) 5.0 [pH] Normal (5.0 - 9.0) [facility] Comment on above: Performed By: #### C BC-D, CMP, UAFLX, ENA6, *GAGE-T, ACAX3, PCR-R, C3-C4, ESRCRP, VD25, CK, HBCA, HBSAB, CCP, RHF #### [facility] [address] [facility], [address] REFLEX CULTURE ADDED NO Normal () [facility] Comment on above: Performed By: #### C BC-D, CMP, UAFLX, ENA6, *GAGE-T, ACAX3, PCR-R, C3-C4, ESRCRP, VD25, CK, HBCA, HBSAB, CCP, RHF #### [facility] [address] [facility], [address] SP. GRAVITY 1.011 Normal (1.001 - 1.035) [facility] Comment on above: Performed By: #### C BC-D, CMP, UAFLX, ENA6, *GAGE-T, ACAX3, PCR-R, C3-C4, ESRCRP, VD25, CK, HBCA, HBSAB, CCP, RHF #### [facility] [address] [facility], [address] SQUAMOUS EPI OCC Normal (NONE - OCC) [facility] Comment on above: Performed By: #### C BC-D, CMP, UAFLX, ENA6, *GAGE-T, ACAX3, PCR-R, C3-C4, ESRCRP, VD25, CK, HBCA, HBSAB, CCP, RHF #### [facility] [address] [place] [address] Rd. [facility], [address] UR. RBC NONE Normal (0 - 2) [facility] Comment on above: Performed By: #### C BC-D, CMP, UAFLX, ENA6, *GAGE-T, ACAX3, PCR-R, C3-C4, ESRCRP, VD25, CK, HBCA, HBSAB, CCP, RHF #### [facility] [address] [place] [address] Rd. [facility], [address] UR. WBC 0-4 Normal (0 - 4) [facility] Comment on above: Performed By: #### C BC-D, CMP, UAFLX, ENA6, *GAGE-T, ACAX3, PCR-R, C3-C4, ESRCRP, VD25, CK, HBCA, HBSAB, CCP, RHF #### [facility] [address] [facility], [address] Urobilinogen (U) [Mass/Vol] 0.2 mg/dL Normal (0.2 - <2.0) [facility] Comment on above: Performed By: #### C BC-D, CMP, UAFLX, ENA6, *GAGE-T, ACAX3, PCR-R, C3-C4, ESRCRP, VD25, CK, HBCA, HBSAB, CCP, RHF #### [facility] [address] [facility], [address] VITAMIN D, 25 HYDROXYon 07-31 VITAMIN D, 25 36.9 NG/ML Normal (30.0 - 100.0) [facility] Comment on above: Result Comment: * * * VITAMIN D, 25 HYDROXY GENERAL GUIDELINE * * * DEFICIENCY = < OR = 20.0 NG/ML INSUFFICIENCY = 20.1 - 29.9 NG/ML SUFFICIENCY = 30.0 - 100.0 NG/ML TOXICITY = > 100.1 NG/ML Performed By: #### C BC-D, CMP, UAFLX, ENA6, *GAGE-T, ACAX3, PCR-R, C3-C4, ESRCRP, VD25, CK, HBCA, HBSAB, CCP, RHF #### [facility] [address] [facility], [id number] Office Visiton 06-10-2024 Follow-up visit [id number] Mikhail Leiva 1990 F Date Provider Department Center 06/10/2024 BRISEIDA LEON Family History Problem Relation Age of Onset Other Mother Heart failure Maternal Grandmother Atrial fibrillation Maternal Grandmother Other Maternal Great-Grandmother Family Status - Relation Status Age at Mother Maternal Grandmother Maternal Great-Grandmother Other Level of Service:[address] [place] OFFICE/OUTPATIENT ESTABLISHED LOW MDM 20 MIN Normal [facility] Office Visiton 05-03-2024 Follow-up visit [id number] Mikhail Leiva 1990 F Date Provider Department Center 05/03/2024 384BRISEIDA NIX Family History Problem Relation Age of Onset Other Mother Heart failure Maternal Grandmother Atrial fibrillation Maternal Grandmother Family Status - Relation Status Age at Mother Maternal Grandmother Level of Service:[address] [place] OFFICE/OUTPATIENT NEW MODERATE MDM 45 MINUTES Normal [facility] General Surgery Office/Clini c Noteon 12-01-2022 [...] Follow-up With When Contact Information NIKOLAI HENRY, Po Mackey, [place] Only if needed [address] [place] [address]- Additional Instructions: Problem List/Past Medical [...] mRNA [id number] vax 07/13/[address] [facility] Comment on above: Result Comment: Elec tronically Signed By: NIKOLAI HENRY, Po Mackey\.br\Date and Time Signed: 12/01/22 13:04 EDT Ambulatory Visit Summaryon 0 11-12-2022 Ambulatory Visit Summary BAILEEMIKHAILDANYELL Simmons :1990 Visit Date:11/12/2022 Ambulatory Visit Instructions Your [...] pain Rt flank pain Symptomatic cholelithiasis Normal [facility] Pathology Noteon 11-09-2022 Pathology Note [id number] Normal [facility] Operative Reporton Operative Report [id number]#[id number]:127 Normal [facility] PREG HCG QUALon 10-29-2022 , QUAL Negative Normal NEGATIVE [facility] Comment on above: Performed By: #### P REG #### [facility] [address] [place] [address] Dr. Krys Diaz Consent for Procedure/Surger yon 10-09-2022 Consent for Procedure/Surgery [id number]#[id number]:127 Normal [facility] Pre-Certification Formon Pre-Certification Form [id number]#1.00CD:127 Normal [facility] Ambulatory Visit Summaryon 0 10-08-2022 Ambulatory Visit Summary FRANKLIN LEIVA :1990 Visit Date:10/08/2022 Ambulatory Visit Instructions Your Care Team Attending Physician - NIKOLAI HENRY, Po Mackey Primary Care Physician - Lona HENRY, Nguyen This Is Your Medications List hyoscyamine (hyoscyamine [...] sided abdominal pain Rt flank pain Normal [facility] General Surgery Office/Clini c Noteon 10-08-2022 [...] Daily, # 90 cap(s), Refills(s) 1, Pharmacy: [facility]/pharmacy #[id number], 157.4, cm, 09/26/22 10:43:00 EDT, Height/Length Dosing, 91.7, kg, 09/26/22 10:43:00 EDT, Weight Dosing E&M of Est. Patient Moderate 30-39 Min 02171 2. Hiatal hernia with GERD, (K44.9: Diaphragmatic hernia without obstruction or gangrene)Diaphragmatic hernia without obstruction or gangrene continue Nexium and Carafate; low fat diet Ordered: esomeprazole, 40 mg = 1 cap(s), Oral, Daily, # 90 cap(s), Refills(s) 1, [id number] 157.4, cm, 09/26/22 10:43:00 EDT, Height/Length Dosing, 91.7, kg, 09/26/22 10:43:00 EDT, Weight Dosing E&M of Est. Patient Moderate 30-39 Min 47097 3. 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 Patient Moderate 30-39 Min 93579 Follow-up No qualifying data available Problem List/Past [...] Substance Ab (more content not included)... Normal [facility] Comment on above: Result Comment: Elec tronically Signed By: NIKOLAI HENRY, Po Moore\Date and Time Signed: 10/08/22 15:53 EDT RAD - MRI Reporton 3 RAD - MRI Report [id number]#1.00CD:127 Normal [facility] Pathology Noteon 10-07-2022 Pathology Note [id number]#1.00CD:127 Normal [facility] MRI ABDOMEN WO CONon 023 MRI ABDOMEN WO CON EXAMINATION: MRI ABD OMEN WO CON HISTORY: Right upper quadrant pain [...] VERONICA VELARDE Date: 2022-10-06 08:51 Normal [facility] Operative Reporton 3 Operative Report [id number]#1.00CD:127 Normal [facility] PREG HCG QUALon 10-01-2022 , QUAL Negative Normal NEGATIVE [facility] Comment on above: Performed By: #### P REG #### [facility] [address] [place] [address] Dr. Krys Diaz Lab Reportson 09-30-2022 Lab Reports [id number]#1.00CD:127 Normal [facility] CBC AUTO DIFFon 09-29-2022 BASO # 0.0 103/ul Normal 0.0-0.1 [facility] Comment on above: Performed By: #### C BC #### [facility] [address] [place] [address] Dr. Krys Diaz Basophils/100 WBC (Bld) 0.5 % Normal 0.2-2.0 [facility] Comment on above: Performed By: #### C BC #### [facility] [address] [place] [address] Dr. Krys Diaz EO # 0.0 103/ul Normal 0.0-0.7 [facility] Comment on above: Performed By: #### C BC #### [facility] [address] [place] [address] Dr. Krys Diaz Eosinophils/100 WBC (Bld) 0.6 % Critically low 0.9-7.0 [facility] Comment on above: Performed By: #### C BC #### [facility] [address] [place] [address] Dr. Krys Diaz Erythrocyte distribution width (RBC) [Ratio] 12.8 % Normal 11.0-15.0 [facility] Comment on above: Performed By: #### C BC #### [facility] [address] [place] [address] Dr. Krys Diaz Hematocrit (Bld) [Volume fraction] 40.0 % Normal 36.0-48.0 [facility] Comment on above: Performed By: #### C BC #### [facility] [address] [place] [address] Dr. Krys Diaz Hemoglobin (Bld) [Mass/Vol] 13.4 g/dL Normal 12.0-16.0 [facility] Comment on above: Performed By: #### C BC #### [facility] [address] [place] [address] Dr. Krys Diaz IG # 0.03 10e3/ul Normal 0.00-0.03 [facility] Comment on above: Performed By: #### C BC #### [facility] [address] [place] [address] Dr. Krys Diaz IG % 0.5 % Normal 0.0-0.5 [facility] Comment on above: Performed By: #### C BC #### [facility] [address] [place] [address] Dr. Krys Diaz LYMPH # 1.7 103/ul Normal 1.2-3.8 [facility] Comment on above: Performed By: #### C BC #### [facility] [address] [place] [address] Dr. Krys Diaz Lymphocytes/100 WBC (Bld) 26.7 % Normal 20.5-60.0 [facility] Comment on above: Performed By: #### C BC #### [facility] [address] [place] [address] Dr. Krys Diaz MANUAL DIFF REQ NO Normal [facility] Comment on above: Performed By: #### C BC #### [facility] [address] [place] [address] Dr. Krys Diaz MCH (RBC) [Entitic mass] 30.8 pg Normal 26.7-34.0 [facility] Comment on above: Performed By: #### C BC #### [facility] [address] [place] [address] Dr. Krys Diaz MCHC (RBC) [Mass/Vol] 33.5 g/dL Normal 29.9-35.2 [facility] Comment on above: Performed By: #### C BC #### [facility] [address] [place] [address] Dr. Krys Diaz MCV (RBC) [Entitic vol] 92.0 fL Normal 81.0-99.0 [facility] Comment on above: Performed By: #### C BC #### [facility] [address] [place] [address] Dr. Krys Diaz MONO # 0.5 103/ul Normal 0.3-0.8 [facility] Comment on above: Performed By: #### C BC #### [facility] [address] [place] [address] Dr. Krys Diaz Monocytes/100 WBC (Bld) 7.9 % Normal 1.7-12.0 [facility] Comment on above: Performed By: #### C BC #### [facility] [address] [place] [address] Dr. Krys Diaz NEUT # 4.1 103/ul Normal 1.4-6.5 [facility] Comment on above: Performed By: #### C BC #### [facility] [address] [place] [address] Dr. Krys Diaz Neutrophils/100 WBC (Bld) 63.8 % Normal 43.0-75.0 [facility] Comment on above: Performed By: #### C BC #### [facility] [address] [place] [address] Dr. Krys Diaz Platelet mean volume (Bld) [Entitic vol] 10.1 fL Normal 9.5-13.5 [facility] Comment on above: Performed By: #### C BC #### [facility] [address] [place] [address] Dr. Krys Diaz PLT 222 103/ul Normal 150-450 [facility] Comment on above: Performed By: #### C BC #### [facility] [address] [place] [address] Dr. Krys Diaz RBC 4.35 106/ul Normal 4.20-5.40 [facility] Comment on above: Performed By: #### C BC #### [facility] [address] [place] [address] Dr. Krys Diaz WBC 6.3 103/ul Normal 4.0-11.0 [facility] Comment on above: Performed By: #### C BC #### [facility] [address] [place] [address] Dr. Krys Diaz LIPASEon 09-29-2022 Lipase [Catalytic activity/Vol] 85.0 U/L Normal 73.0-393.0 [facility] Comment on above: Performed By: #### B MP, LIVER, LIPA ####[facility] [address] [place] [address]Dr. Amyalejandro Joe LIVER PROFILEon 09-29-2022 Albumin [Mass/Vol] 3.6 g/dL Normal 3.4-5.0 [facility] Comment on above: Performed By: #### B MP, LIVER, LIPA ####[facility] [address] [place] [address]Dr. Krys Diaz Albumin/Globulin [Mass ratio] 0.9 {ratio} Normal [facility] Comment on above: Performed By: #### B MP, LIVER, LIPA ####[facility] [address] [place], [place] [address]Dr. Krys Diaz ALP [Catalytic activity/Vol] 63 U/L Normal 46-116 [facility] Comment on above: Performed By: #### B MP, LIVER, LIPA ####[facility] [address] [place], [place] [address]Dr. Krys Diaz ALT [Catalytic activity/Vol] 65 U/L Critically high 14-59 [facility] Comment on above: Performed By: #### B MP, LIVER, LIPA ####[facility] [address] [place], [place] [address]Dr. Krys Diaz AST [Catalytic activity/Vol] 35 U/L Normal 15-37 [facility] Comment on above: Performed By: #### B MP, LIVER, LIPA ####[facility] [address] [place], [place] [address]Dr. Krys Diaz BILI, CONJUGATED 0.1 mg/dL Normal 0.0-0.2 [facility] Comment on above: Performed By: #### B MP, LIVER, LIPA ####[facility] [address] [place], [place] [address]Dr. Krys Diaz Bilirubin [Mass/Vol] 0.5 mg/dL Normal 0.2-1.0 [facility] Comment on above: Performed By: #### B MP, LIVER, LIPA ####[facility] [address] [place], [place] [address]Dr. Krys Diaz Globulin (S) [Mass/Vol] 3.9 g/dL Normal [facility] Comment on above: Performed By: #### B MP, LIVER, LIPA ####[facility] [address] [place] [address]Dr. Krys Diaz Protein [Mass/Vol] 7.5 g/dL Normal 6.4-8.2 [facility] Comment on above: Performed By: #### B MP, LIVER, LIPA ####[facility] [address] [place] [address]Dr. Krys Diaz PROF CHEM 8 (BAS METB)on Anion gap [Moles/Vol] 9.5 mmol/L Normal [facility] Comment on above: Performed By: #### B MP, LIVER, LIPA #### [facility] [address] [address] [address] Kyrs Diaz Calcium [Mass/Vol] 9.0 mg/dL Normal 8.5-10.1 [facility] Comment on above: Performed By: #### B MP, LIVER, LIPA #### [facility] [address] [address] [address] Krys Diaz Chloride [Moles/Vol] 106 mmol/L Normal 98-107 [facility] Comment on above: Performed By: #### B MP, LIVER, LIPA #### [facility] [address] [address] [address] Krys Diaz CO2 [Moles/Vol] 27.3 mmol/L Normal 21.0-32.0 [facility] Comment on above: Performed By: #### B MP, LIVER, LIPA #### [facility] [address] [address] [address] Krys Diaz Creatinine [Mass/Vol] 0.80 mg/dL Normal 0.55-1.02 [facility] Comment on above: Performed By: #### B MP, LIVER, LIPA #### [facility] [address] [address] [address] Krys Diaz EGFR-AF ARMENIAN >60 Normal >=60 [facility] Comment on above: Performed By: #### B MP, LIVER, LIPA #### [facility] [address] [address] [address] Krys Diaz EGFR-NON AF ARMENIAN >60 Normal >=60 [facility] Comment on above: Performed By: #### B MP, LIVER, LIPA #### [facility] [address] [address] [address] Krys Diaz Glucose [Mass/Vol] 100 mg/dL Normal 74-106 [facility] Comment on above: Performed By: #### B MP, LIVER, LIPA #### [facility] [address] [address] [address] Krys Diaz Potassium [Moles/Vol] 3.8 mmol/L Normal 3.5-5.1 [facility] Comment on above: Performed By: #### B MP, LIVER, LIPA #### [facility] [address] [address] [address] Krys Diaz Sodium [Moles/Vol] 139 mmol/L Normal 136-145 [facility] Comment on above: Performed By: #### B MP, LIVER, LIPA #### [facility] [address] [address] [address] Krys Diaz Urea nitrogen [Mass/Vol] 8.0 mg/dL Normal 7.0-18.0 [facility] Comment on above: Performed By: #### B MP, LIVER, LIPA #### [facility] [address] [address] [address] Krys Diaz Urea nitrogen/Creatinin e [Mass ratio] 10.0 mg/mg Normal [facility] Comment on above: Performed By: #### B MP, LIVER, LIPA #### [facility] [address] [place] [address] Dr. Krys Diaz Ambulatory Visit Summaryon 0 09-26-2022 Ambulatory Visit Summary FRANKLIN LEIVA :1990 Visit Date:09/26/2022 Ambulatory Visit Instructions Your [...] 37.0-37.9, adult Cholelithiasis Eczema Left ovarian cyst [facility] Consent for Procedure/Surger yon 09-26-2022 Consent for Procedure/Surgery [id number]#[id number]:127 [facility] Pre-Certification Formon Pre-Certification Form [id number]#[id number]:127 [facility] ED Note-Physicianon 09-19-19 ED Note-Physician [id number]#[id number]:127 [facility] Physician Referralon 023 Physician Referral [id number]#1.00CD:127 Normal [facility] US SINGLE QUAD RT UPPERon US [...] by: SCOTTY COLINDRES Date: 2022-09-14 15:35 Normal [facility] CT ABD/PELV W CONon 09-10-[address] ABD/PELV W CON EXAMINATION: CT ABD/ PELV W CON HISTORY: Right upper quadrant pain [...] by: Amber CARRILLO Date: 2022-09-08 23:07 Normal [facility] CBC AUTO DIFFon 09-08-2022 BASO # 0.0 103/ul Normal 0.0-0.1 [facility] Comment on above: Performed By: #### C BC #### [facility] [address] [place] [address] Dr. Krys Diaz Basophils/100 WBC (Bld) 0.3 % Normal 0.2-2.0 [facility] Comment on above: Performed By: #### C BC #### [facility] [address] [place] [address] Dr. Krys Diaz EO # 0.1 103/ul Normal 0.0-0.7 [facility] Comment on above: Performed By: #### C BC #### [facility] [address] [place] [address] Dr. Krys Diaz Eosinophils/100 WBC (Bld) 0.7 % Critically low 0.9-7.0 [facility] Comment on above: Performed By: #### C BC #### [facility] [address] [place] [address] Dr. Krys Diaz Erythrocyte distribution width (RBC) [Ratio] 12.8 % Normal 11.0-15.0 [facility] Comment on above: Performed By: #### C BC #### [facility] [address] [place] [address] Dr. Krys Diaz Hematocrit (Bld) [Volume fraction] 38.1 % Normal 36.0-48.0 [facility] Comment on above: Performed By: #### C BC #### [facility] [address] [place] [address] Dr. Krys Diaz Hemoglobin (Bld) [Mass/Vol] 12.9 g/dL Normal 12.0-16.0 [facility] Comment on above: Performed By: #### C BC #### [facility] [address] [place] [address] Dr. Krys Diaz IG # 0.01 10e3/ul Normal 0.00-0.03 [facility] Comment on above: Performed By: #### C BC #### [facility] [address] [place] [address] Dr. Krys Diaz IG % 0.1 % Normal 0.0-0.5 [facility] Comment on above: Performed By: #### C BC #### [facility] [address] [place] [address] Dr. Krys Diaz LYMPH # 2.4 103/ul Normal 1.2-3.8 [facility] Comment on above: Performed By: #### C BC #### [facility] [address] [place] [address] Dr. Krys Diaz Lymphocytes/100 WBC (Bld) 35.8 % Normal 20.5-60.0 [facility] Comment on above: Performed By: #### C BC #### [facility] [address] [place] [address] Dr. Krys Diaz MANUAL DIFF REQ NO Normal [facility] Comment on above: Performed By: #### C BC #### [facility] [address] [place] [address] Dr. Krys Diaz MCH (RBC) [Entitic mass] 30.0 pg Normal 26.7-34.0 [facility] Comment on above: Performed By: #### C BC #### [facility] [address] [place] [address] Dr. Krys Diaz MCHC (RBC) [Mass/Vol] 33.9 g/dL Normal 29.9-35.2 [facility] Comment on above: Performed By: #### C BC #### [facility] [address] [place] [address] Dr. Krys Diaz MCV (RBC) [Entitic vol] 88.6 fL Normal 81.0-99.0 [facility] Comment on above: Performed By: #### C BC #### [facility] [address] [place] [address] Dr. Krys Diaz MONO # 0.5 103/ul Normal 0.3-0.8 [facility] Comment on above: Performed By: #### C BC #### [facility] [address] [place] [address] Dr. Krys Diaz Monocytes/100 WBC (Bld) 7.0 % Normal 1.7-12.0 [facility] Comment on above: Performed By: #### C BC #### [facility] [address] [place] [address] Dr. Krys Diaz NEUT # 3.7 103/ul Normal 1.4-6.5 [facility] Comment on above: Performed By: #### C BC #### [facility] [address] [place] [address] Dr. Krys Diaz Neutrophils/100 WBC (Bld) 56.1 % Normal 43.0-75.0 [facility] Comment on above: Performed By: #### C BC #### [facility] [address] [place] [address] Dr. Krys Diaz Platelet mean volume (Bld) [Entitic vol] 8.9 fL Critically low 9.5-13.5 [facility] Comment on above: Performed By: #### C BC #### [facility] [address] [place] [address] Dr. Krys Diaz PLT 287 103/ul Normal 150-450 [facility] Comment on above: Performed By: #### C BC #### [facility] [address] [place] [address] Dr. Krys Diaz RBC 4.30 106/ul Normal 4.20-5.40 [facility] Comment on above: Performed By: #### C BC #### [facility] [address] [place] [address] Dr. Krys Diaz WBC 6.7 103/ul Normal 4.0-11.0 [facility] Comment on above: Performed By: #### C BC #### [facility] [address] [place] [address] Dr. Krys Diaz ER URINE PROFILEon 3 Bilirubin Ql (U) SMALL Abnormal NEGATIVE [facility] Comment on above: Performed By: #### U MICRO, ERUR #### [facility] [address] [place] [address] Dr. Krys Diaz Clarity (U) CLEAR Normal CLEAR [facility] Comment on above: Performed By: #### U MICRO, ERUR #### [facility] [address] [place] [address] Dr. Krys Diaz Color (U) YELLOW Normal YELLOW [facility] Comment on above: Performed By: #### U MICRO, ERUR #### [facility] [address] [address] [address] Krys LEDESMA A micrscopic examina tion will be performed if indicated. Normal [facility] Comment on above: Performed By: #### U MICRO, ERUR #### [facility] [address] [address] [address] Krys Diaz Glucose Ql (U) Negative Normal NEGATIVE [facility] Comment on above: Performed By: #### U MICRO, ERUR #### [facility] [address] [address] [address] Krys Diaz Hemoglobin Ql (U) LARGE Abnormal NEGATIVE [facility] Comment on above: Performed By: #### U MICRO, ERUR #### [facility] [address] [address] [address] Krys Diaz Ketones Ql (U) Negative Normal NEGATIVE [facility] Comment on above: Performed By: #### U MICRO, ERUR #### [facility] [address] [address] [address] Krys Diaz LEUKOCYTES Negative Normal NEGATIVE [facility] Comment on above: Performed By: #### U MICRO, ERUR #### [facility] [address] [address] [address] Krys Diaz Nitrite Ql (U) Negative Normal NEGATIVE [facility] Comment on above: Performed By: #### U MICRO, ERUR #### [facility] [address] [address] [address] Krys Diaz pH (U) 5.5 [pH] Normal 5-9 [facility] Comment on above: Performed By: #### U MICRO, ERUR #### [facility] [address] [address] [address] Krys Diaz Protein (U) [Mass/Vol] 30 mg/dL Abnormal NEGATIVE/ TRACE [facility] Comment on above: Performed By: #### U MICRO, ERUR #### [facility] [address] [address] [address] Krys Diaz SPEC GRAVITY >=1.030 Abnormal 1.005-<=1.0 25 [facility] Comment on above: Performed By: #### U MICRO, ERUR #### [facility] [address] [address] [address] Krys Diaz UR MICRO IND INDICATED Normal [facility] Comment on above: Performed By: #### U MICRO, ERUR #### [facility] [address] [address] [address] Krys Diaz Urobilinogen Qn (U) 1.0 {Paramjit'U}/dL Normal 0.2 - 1.0 [facility] Comment on above: Performed By: #### U MICRO, ERUR #### [facility] [address] [address] [address] Krys Diaz LIPASEon 09-08-2022 Lipase [Catalytic activity/Vol] 82.0 U/L Normal 73.0-393.0 [facility] Comment on above: Performed By: #### C MP, LIPA ####[facility] [address] [address]DrMinerva Diaz PREG HCG QUALon 09-08-2022 , QUAL Negative Normal NEGATIVE [facility] Comment on above: Performed By: #### P REG ####[facility] [address] [place], [place] [address]DrMinerva Diaz PROF 14(COMP METB)on 023 Albumin [Mass/Vol] 3.7 g/dL Normal 3.4-5.0 [facility] Comment on above: Performed By: #### C MP, LIPA ####[facility] [address] [place] [address]DrMinerva Diaz Albumin/Globulin [Mass ratio] 1.1 {ratio} Normal [facility] Comment on above: Performed By: #### C MP, LIPA ####[facility] [address] [place] [address]DrMinerva Diaz ALP [Catalytic activity/Vol] 67 U/L Normal 46-116 [facility] Comment on above: Performed By: #### C MP, LIPA ####[facility] [address] [place] [address]Dr. Krys Diaz ALT [Catalytic activity/Vol] 38 U/L Normal 14-59 [facility] Comment on above: Performed By: #### C SARAH, LIPA ####[facility] [address] [place], [place] [address]Dr. Krys Diaz Anion gap [Moles/Vol] 12.4 mmol/L Normal [facility] Comment on above: Performed By: #### C MP, LIPA ####[facility] [address] [place], [place] [address]Dr. Krys Diaz AST [Catalytic activity/Vol] 19 U/L Normal 15-37 [facility] Comment on above: Performed By: #### C SARAH, LIPA ####[facility] [address] [place], [place] [address]Dr. Krys Diaz Bilirubin [Mass/Vol] 0.4 mg/dL Normal 0.2-1.0 [facility] Comment on above: Performed By: #### C SARAH, LIPA ####[facility] [address] [place], [place] [address]Dr. Krys Diaz Calcium [Mass/Vol] 8.6 mg/dL Normal 8.5-10.1 [facility] Comment on above: Performed By: #### C SARAH, LIPA ####[facility] [address] [place], [place] [address]Dr. Krys Diaz Chloride [Moles/Vol] 105 mmol/L Normal 98-107 [facility] Comment on above: Performed By: #### C MP, LIPA ####[facility] [address] [place], [place] [address]Dr. Krys Diaz CO2 [Moles/Vol] 25.9 mmol/L Normal 21.0-32.0 [facility] Comment on above: Performed By: #### C MP, LIPA ####[facility] [address] [place], [place] [address]Dr. Krys Diaz Creatinine [Mass/Vol] 0.86 mg/dL Normal 0.55-1.02 [facility] Comment on above: Performed By: #### C MP, LIPA ####[facility] [address] [place] [id number]. Yilan Diaz EGFR-AF ARMENIAN >60 Normal >=60 [facility] Comment on above: Performed By: #### C MP, LIPA ####[facility] [address] [place] [id number]. Amylan Diaz EGFR-NON AF ARMENIAN >60 Normal >=60 [facility] Comment on above: Performed By: #### C MP, LIPA ####[facility] [address] [place] [address]Dr. Krys Diaz Globulin (S) [Mass/Vol] 3.5 g/dL Normal [facility] Comment on above: Performed By: #### C MP, LIPA ####[facility] [address] [place] [address]Dr. Krys Diaz Glucose [Mass/Vol] 102 mg/dL Normal 74-106 [facility] Comment on above: Performed By: #### C MP, LIPA ####[facility] [address] [place], [place] [address]Dr. Krys Diaz Potassium [Moles/Vol] 3.3 mmol/L Critically low 3.5-5.1 [facility] Comment on above: Performed By: #### C MP, LIPA ####[facility] [address] [place] [address]Dr. Amylan Diaz Protein [Mass/Vol] 7.2 g/dL Normal 6.4-8.2 [facility] Comment on above: Performed By: #### C MP, LIPA ####[facility] [address] [place] [address]Dr. Amylan Diaz Sodium [Moles/Vol] 140 mmol/L Normal 136-145 [facility] Comment on above: Performed By: #### C MP, LIPA ####[facility] [address] [place] [address]Dr. Amylan Diaz Urea nitrogen [Mass/Vol] 6.0 mg/dL Critically low 7.0-18.0 [facility] Comment on above: Performed By: #### C MP, LIPA ####[facility] [address] [place] [address]Dr. Krys Diaz Urea nitrogen/Creatinin e [Mass ratio] 7.0 mg/mg Normal [facility] Comment on above: Performed By: #### C MP, LIPA ####[facility] [address] [place] [address]Dr. Krys Diaz URINE MICROSCOPIC ONLYon BACTERIA TRACE Abnormal NONE SEEN [facility] Comment on above: Performed By: #### U MICRO, ERUR #### [facility] [address] [address] [address] Krys Diaz Bacteria identified Cx Nom (U) NOT INDICATED Normal [facility] Comment on above: Performed By: #### U MICRO, ERUR #### [facility] [address] [place] [address] Dr. Krys Diaz CAST NONE SEEN Normal NONE SEEN [facility] Comment on above: Performed By: #### U MICRO, ERUR #### [facility] [address] [address] [address] Krys Diaz Crystals LM Nom (Urine sed) NONE SEEN Normal NONE SEEN [facility] Comment on above: Performed By: #### U MICRO, ERUR #### [facility] [address] [address] [address] Krys Diaz Epithelial cells LM Ql (Urine sed) MODERATE Abnormal NONE SEEN /RARE [facility] Comment on above: Performed By: #### U MICRO, ERUR #### [facility] [address] [address] [address] Krys Diaz MUCOUS MODERATE Abnormal NONE SEEN [facility] Comment on above: Performed By: #### U MICRO, ERUR #### [facility] [address] [address] [address] Krys Diaz RBC 20-50 Abnormal 0-2 [facility] Comment on above: Performed By: #### U MICRO, ERUR #### [facility] [address] [address] [address] Krys Diaz WBC NONE SEEN Normal NONE SEEN [facility] Comment on above: Performed By: #### U MICRO, ERUR #### [facility] [address] [address] [address] Krys Diaz Vital Signs Date Time Vital Sign Value Performing Clinician Kiko stroud 11-09-2024 11:30-0400 Body mass index (BMI) [Ratio] 40.6 kg/m2 Barbie Nataprawira DO Work Phone: [facility] 11-09-2024 11:30-0400 Body weight 100.7 kg Barbie Nataprawira DO Work Phone: [facility] 11-09-2024 11:30-0400 Diastolic blood pressure 74 mm[Hg] Barbie Nataprawira DO Work Phone: [facility] 11-09-2024 11:30-0400 Systolic blood pressure 118 mm[Hg] Barbie Nataprawira DO Work Phone: [facility] 09-21-2024 09:53-0400 Body height 157.5 cm Barby Arzate MD Work Phone: [facility] 09-21-2024 09:53-0400 Body mass index (BMI) [Ratio] 40.6 kg/m2 Barby Arzate MD Work Phone: [facility] 09-21-2024 09:53-0400 Body weight 100.7 kg Barby Arzate MD Work Phone: [facility] 09-21-2024 09:53-0400 Diastolic blood pressure 76 mm[Hg] Barby Arzate MD Work Phone: [facility] 09-21-2024 09:53-0400 Heart rate 78 /min Barby Arzate MD Work Phone: [facility] 09-21-2024 09:53-0400 Respiratory rate 18 /min Barby Arzate MD Work Phone: [facility] 09-21-2024 09:53-0400 SaO2% (BldA) [Mass fraction] 99 % Barby Arzate MD Work Phone: [facility] 09-21-2024 09:53-0400 Systolic blood pressure 120 mm[Hg] Barby Arzate MD Work Phone: [facility] 09-26-2022 10:37-0400 Blood Pressure Location Po NILL [facility] 09-26-2022 10:37-0400 Diastolic blood pressure 76 mm[Hg] Po NILL [facility] 09-26-2022 10:37-0400 Heart rate 80 /min Po NILL [facility] 09-26-2022 10:37-0400 Respiratory rate 16 /min Po NILL [facility] 09-26-2022 10:37-0400 Systolic blood pressure 112 mm[Hg] Po NILL [facility] Encounters Encounter Date Encounter Type Care Provider Facility Start: 11-09-2024 End: 11-09-2024 Patient encounter status Barbie Dang medidametrics Work Phone: [facility] Work Phone: Start: 11-09-2024 End: 11-09-2024 Periodic preventive med est patient 18-39 yrs Barbie Soriano Alton DO Work Phone: [facility] Comment on above: Encounter for gyneco logical examination (general) (routine) with abnormal findings (Primary Dx); Candidiasis of vulva; Vulvar itching; Screening for malignant neoplasm of cervix; Encounter for screening for human papillomavirus (HPV) Start: 09-21-2024 End: 09-21-2024 Bamboo flowsheet Barby Arzate MD Work Phone: [facility] Start: 09-21-2024 End: 09-21-2024 Bamboo [employer] Biomedical[employer] Barby Arzate MD Work Phone: [facility] Start: 09-21-2024 End: 09-21-2024 Office outpatient new 45 minutes Barby Arzate MD Work Phone: [facility] Comment on above: Weight gain (Primary Dx); Vitamin D deficiency; Encounter for dietary consultation; Class 3 severe obesity due to excess calories without serious comorbidity with body mass index (BMI) of 40.0 to 44.9 in adult Start: 06-10-2024 End: 06-10-2024 ambulatory [facility] Start: 05-03-2024 End: 05-03-2024 ambulatory [facility] Start: 11-12-2022 End: 11-13-2022 ambulatory Po MENCHACA Facility:[facility] Start: 11-12-2022 End: 11-12-2022 Patient encounter procedure Po MENCHACA General Surgery Skylerl/Renato Jesenia Start: 10-29-2022 End: 10-30-[address] NGUYEN ZAMORANO . Facility:[facility] Start: 10-23-2022 Encounter for other preprocedural examination DR PO MENCHACA . [facility] Start: 10-21-2022 End: 10-22-[address] NGUYEN ZAMORANO . Facility:[facility] Start: 10-21-2022 End: 10-22-2022 Encounter for other preprocedural examination DR NGUYEN ZAMORANO . Facility:[facility] Start: 10-08-2022 End: 10-09-2022 ambulatory Po MENCHACA Facility:[facility] Start: 10-08-2022 End: 10-08-2022 Patient encounter procedure Po MENCHACA General Surgery Nikolai/Renato Ba Start: 10-06-2022 End: 10-07-[address] PO MENCHACA . Facility:[facility] Start: 10-01-2022 End: 10-02-[address] PO MENCHACA . Facility:[facility] Start: 09-29-2022 End: 09-30-[address] PO MENCHACA . Facility: Start: 09-26-2022 End: 09-27-2022 ambulatory Po MENCHACA Facility:[facility] Start: 09-26-2022 End: 09-26-2022 Patient encounter procedure Po MENCHACA [facility] General [facility] [place] Start: 09-17-2022 ambulatory Po MENCHACA Facility:[facility] Start: 09-17-2022 ambulatory Po MENCHACA [facility] Start: 09-11-2022 End: 09-12-[address] NGUYEN ZAMORANO . Facility:[facility] Start: 09-08-2022 End: 09-09-[address] MILADY GRIFFIN . Facility: Procedures Date Procedure Procedure Detail Performing Clinician Start: 11-09-2024 IGP, APT HPV,RFX 16/18,45 Barbie J Trace riggins DO Work Phone: Start: 08-23-2024 Cyclic citrullinated peptide antibody Comment on above: Performed By: #### CBC-D, CMP, UAFLX, EN A6, *GAGE-T, ACAX3, PCR-R, C3-C4, ESRCRP, VD25, CK, HBCA, HBSAB, CCP, RHF #### [facility] [address] [facility], [address] Start: 10-29-2022 Laparoscopic cholecystectomy Po Sanchez Start: 10-20-2022 Microscopic observation [Identifier] in Cervix by Cyto stain Barby Arzate MD Work Phone: Start: 10-01-2022 Esophagogastroduodenoscopy Po MENCHACA None (qualifier value) Raimundo MENCHACA Plan of Treatment Date Care Activity Detail Author Start: 11-09-2029 Screening for malignant neoplasm of cervix [facility] Start: 10-21-2027 Screening for malignant neoplasm of cervix [facility] Start: 11-15-2025 End: 11-15-2025 Patient encounter procedure 11/15/2025 9:30 AM EDT Office Visit [facility] [address] [address] Barbie Dang DO [address] [address] [facility] Start: 10-20-2025 Screening for malignant neoplasm of cervix Pap Smear [facility] Start: 01-30-2025 Influenza vaccination Influenza Vaccine (Season Ended) [facility] Start: 12-28-2024 End: 12-28-2024 Patient encounter procedure 12/28/2024 9:40 AM EDT Office Visit [facility] [address] [place] [address] Barby Arazte MD [address] [place] [address] [facility] Start: 11-09-2024 End: 11-09-2024 Patient encounter procedure 11/09/2024 11:30 AM EDT [facility] [address] [id number] Barbie Dang DO [address] [address] [facility] Start: 09-21-2024 End: 09-21-2025 Thyroglobulin Antibody Thyroglobulin Antibody Lab Routine Weight gain Expected: 09/21/2024 (Approximate), Expires: 09/21/2025 [facility] Work Phone: Comment on above: Expected: 09/21/2024 (Approximate), Expi res: 09/21/2025 Start: 09-21-2024 End: 09-21-2025 Thyroid peroxidase antibody Thyroid peroxidase antibody Lab Routine Weight gain Expected: 09/21/2024 (Approximate), Expires: 09/21/2025 [facility] Comment on above: Expected: 09/21/2024 (Approximate), Expi res: 09/21/2025 Start: 09-21-2024 End: 09-21-2025 Thyrotropin [Units/volume] in Serum or Plasma TSH Lab Routine Weight gain Expected: 09/21/2024 (Approximate), Expires: 09/21/2025 [facility] Comment on above: Expected: 09/21/2024 (Approximate), Expi res: 09/21/2025 Start: 09-21-2024 End: 09-21-2025 Thyroxine (T4) free [Mass/volume] in Serum or Plasma T4, free Lab Routine Weight gain Expected: 09/21/2024 (Approximate), Expires: 09/21/2025 [facility] Comment on above: Expected: 09/21/2024 (Approximate), Expi res: 09/21/2025 Start: 09-21-2024 End: 09-21-2025 Triiodothyronine (T3) Free [Mass/volume] in Serum or Plasma T3, free Lab Routine Weight gain Expected: 09/21/2024 (Approximate), Expires: 09/21/2025 [facility] Comment on above: Expected: 09/21/2024 (Approximate), Expi res: 09/21/2025 Start: 09-21-2024 End: 09-21-2024 Patient encounter procedure 09/21/2024 10:00 AM EDT Office Visit [facility] [address] [place] [id number] Barby Arzate MD [address] [place] [address] [facility] Comment on above: Arrived Immunizations Immunization Date Immunization Notes Care Provider Fa cility 08-03-2020 SARS-CoV-2 (COVID-19 ) mRNA BNT-162b2 vax Po MENCHACA General [facility] [place] 07-13-2020 SARS-CoV-2 (COVID-19 ) mRNA BNT-162b2 jeanne MENCHACA [facility] [place] NEGATED: Highlighted row has not occurred!09-26-2022 influenza virus vaccine, unspecified formulation Po MENCHACA [facility] [place] Payers Date Payer Category Payer Unknown [id number] 2021 Private Health Insurance [employer] [id number] 1991 Unknown [id number] .[id number] 1991 Unknown [id number] .2.593 1991 Unknown [id number] [id number] .2.593 1991 Unknown [id number] [id number] .2.593 1991 Unknown [id number] [id number] .2.593 1991 Unknown [id number] [id number] .2.593 1991 Unknown [id number] [id number] .2.593 1991 Unknown [id number] [id number] .2.727 1991 Unknown [id number] [id number] .2.727 1991 Unknown [id number] [id number] .2.727 1991 Unknown [id number] [id number] .2.727 1991 Unknown [id number] .2.727 Social History Date Type Detail Facility Start: 09-26-2022 End: 10-20-2022 Tobacco smoking status Never smoked tobacco (finding) [facility] Tobacco [facility] status [facility] Start: 2023 End: 11-09-2024 Sex Assigned At Female [facility] Start: 10-20-2022 Tobacco use and exposure Smokeless tobacco non-user [facility] Start: 2023 Alcoholic beverage intake Current drinker of alcohol (finding) [facility] Start: 2023 End: 11-09-2024 History of Social function [facility] Start: 1990 Sex assigned at Not on file [facility] Start: 11-09-2024 Alcoholic beverage intake Lifetime non-drinker (finding) [facility] Functional Status Date Assessment Result Facility 09-26-2022 Functional Status N/A [facility] Clinical Notes 09-26-2022 to 11-09-2024 Barbie Dang DO - 11/09/2024 11:30 AM Bree Arzate MD - 09/21/2024 10:00 AM EDT Note Date & Type Note Facility 11-09-2024 History of Present illness Narrative Images from the original note were not included. Barbie Dang DO Obstetrics and Gynecology Name: Franklin Leiva Date/Time of Service:11/12/2024 4:36 PM :1990 Age: 34 y.o. Subjective Franklin Leiva is a 34 y.o. female who is here for a routine exam. Gynecologic Exam (Patient here for a yearly. Denies problems. Patient having periods every month lasting 5 days with normal bleeding and no cramping LMP 10/09/24 Never been sexually active.) Control Contraception: abstinence. LMP: Patient's last menstrual period was 10/09/2024. Last Mammogram No results found for this or any previous visit. Current Outpatient Medications on File Prior to Visit Medication Sig Dispense Refill esomeprazole (NexIUM) [address] capsule Take 40 mg by mouth in the morning. Take before meals. Do not open capsule. folic acid (Folvite) 1 MG tablet Take 1 mg by mouth Daily methotrexate 2.5 MG tablet Take 2.5 mg by mouth. ON THURSDAY TAKE 3 TABLET IN THE AM AND 3 TABLETS IN THE PM [DISCONTINUED] dexAMETHasone (Decadron) 1 MG tablet Take 1 mg by mouth in the morning and 1 mg in the evening. Take with meals. No current facility-administered medications on file prior to visit. Past Medical History: Diagnosis Date GAGE positive Left ovarian cyst Past Surgical History: Procedure Laterality Date CHOLECYSTECTOMY 10/29/2022 Family History Problem Relation Name Age of Onset Anemia Mother Wanda Leiva Obesity Father Rosalino Leiva Obesity Sister Latha Olmos Breast cancer Father's Sister Jenni Leiva Kidney disease Father's Sister Jenni Leiva Diabetes Paternal Grandmother Jannet Leiva Social History Tobacco Use Smoking status: Never Smokeless tobacco: Never Substance Use Topics Alcohol use: Never Drug use: Never OB History Para Term AB Living 0 0 0 0 0 0 SAB IAB Ectopic Multiple Live Births 0 0 0 0 0 No Known Allergies Review of Systems Constitutional: Negative. Respiratory: Negative. Cardiovascular: Negative. Gastrointestinal: Negative. Musculoskeletal: Negative. Skin: Negative. Neurological: Negative. Endocrine: Negative. Objective BP 118/74 Wt 222 lb LMP 10/09/2024 BMI 40.60 kg/m Body mass index is 40.6 kg/m . Physical Exam Genitourinary: Urethral meatus normal. No lesions in the vagina. Right Labia: rash (erythematous with white caking). Right Labia: No lesions. Left Labia: rash (erythematous with white caking). Left Labia: No lesions. No vaginal discharge. Right Adnexa: not tender and no mass present. Left Adnexa: not tender and no mass present. No cervical lesion. Uterus is not tender. Uterus is anteverted. Bladder is not tender. Breasts: Right: No mass, nipple discharge, skin change or tenderness. Left: No mass, nipple discharge, skin change or tenderness. HENT: Head: Normocephalic and atraumatic. Mouth/Throat: Mouth: Mucous membranes are moist. Cardiovascular: Rate and Rhythm: Normal rate and regular rhythm. Pulmonary: Effort: Pulmonary effort is normal. Breath sounds: Normal breath sounds. Abdominal: General: Bowel sounds are normal. Palpations: Abdomen is soft. Musculoskeletal: General: No tenderness. Cervical back: Neck supple. Neurological: Mental Status: She is alert and oriented to person, place, and time. Skin: General: Skin is warm and dry. Psychiatric: Mood and Affect: Mood normal. Vitals and nursing note reviewed. Assessment/Plan 1. Encounter for gynecological examination (general) (routine) with abnormal findings (Primary) Breast and pelvic exam performed. Discussed findings. Patient to contact the office with any changes to her gynecological condition. 2. Candidiasis of vulva Discussed findings. Nystatin-triamcinolone cream Rx sent. Instruction of use given - nystatin-triamcinolone (Mycolog II) cream; Apply topically in the morning and before bedtime. Do all this for 7 days. Dispense: 15 g; Refill: 0 3. Vulvar itching - nystatin-triamcinolone (Mycolog II) cream; Apply topically in the morning and before bedtime. Do all this for 7 days. Dispense: 15 g; Refill: 0 4. Screening for malignant neoplasm of cervix Cervical cytology and co-testing performed. Patient to contact the office for results - IGP, APT HPV,RFX 16/18,45 5. Encounter for screening for human papillomavirus (HPV) - IGP, APT HPV,RFX 16/18,45 ICD-10-CM 1. Encounter for gynecological examination (general) (routine) with abnormal findings Z01.411 2. Candidiasis of vulva B37.31 nystatin-triamcinolone (Mycolog II) cream 3. Vulvar itching L29.2 nystatin-triamcinolone (Mycolog II) cream 4. Screening for malignant neoplasm of cervix Z12.4 IGP, APT HPV,RFX 16/18,45 5. Encounter for screening for human papillomavirus (HPV) Z11.51 IGP, APT HPV,RFX 16/18,45 Follow up in about 1 year (around 11/09/2025) for Yearly. Barbie Dang DO 11/12/2024 4:36 PM documented in this encounter [facility] 09-21-2024 History of Present illness Narrative Franklin Leiva is a 33 y.o. 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 SUBJECTIVE: MEDICATIONS: Current Outpatient Medications Medication Instructions dexAMETHasone (DECADRON) 1 mg, 2 times daily with meals esomeprazole (NEXIUM) 40 mg, Daily before breakfast folic acid (FOLVITE) 1 mg, Daily methotrexate 2.5 mg ALLERGIES: No Known Allergies Past Medical History: Diagnosis Date Left ovarian cyst Past Surgical History: Procedure Laterality Date CHOLECYSTECTOMY 10/29/2022 REVIEW OF SYMPTOMS: 14 POINT OF SYSTEM REVIEWED AND NEGATIVE OBJECTIVE: Visit Vitals BP 120/76 Pulse 78 Resp 18 Ht 5' 2 Wt 222 lb SpO2 99% BMI 40.60 kg/m Smoking Status Never BSA 2.1 m Physical Exam Constitutional: Appearance: Normal appearance. She is normal weight. HENT: Head: Normocephalic and atraumatic. Right Ear: External ear normal. Nose: Nose normal. Mouth/Throat: Pharynx: Oropharynx is clear. Eyes: Extraocular Movements: Extraocular movements intact. Pupils: Pupils are equal, round, and reactive to light. Cardiovascular: Rate and Rhythm: Normal rate and regular rhythm. Pulmonary: Effort: Pulmonary effort is normal. Abdominal: General: Abdomen is flat. Palpations: Abdomen is soft. Musculoskeletal: General: Normal range of motion. Skin: General: Skin is warm. Neurological: General: No focal deficit present. Mental Status: She is alert. Psychiatric: Mood and Affect: Mood normal. Behavior: Behavior normal. ASSESSMENT AND PLAN: Assessment/Plan Diagnoses and all orders for this visit: Weight gain - Thyroglobulin Antibody; Future - Thyroid peroxidase antibody; Future - T3, free; Future - T4, free; Future - TSH; Future Most likely due high dose steroids, at this time I told her we can not evaluate her for Millbury syndrome while she is on steroids, needs to be off completely, I recommend to taper down and to speak with her concrete paving supervisor to be off, and then we will able to see her and do 1 mg DST at least after 6 weeks of being off. Vitamin D deficiency Encounter for dietary consultation Diet and exercise reviewed with the patient Class 3 severe obesity due to excess calories without serious comorbidity with body mass index (BMI) of 40.0 to 44.9 in adult Follow up in about 3 months (around 12/21/2024). documented in this encounter [facility] 06-10-2024 Note Cardiology Clinic No te HPI: [...] is complete Briseida Carrasquillo MD Interventional Cardiology [facility] 05-03-2024 Note Cardiology Clinic No te HPI: [...] or concerns. Briseida Carrasquillo MD Interventional Cardiology [facility] 10-29-2022 Note OPERATIVE NOTE OPERATION DATE: 10/29/2022 PREOPERATIVE DIAGNOSIS: Symptomatic cholelithiasis. POSTOPERATIVE DIAGNOSIS: Symptomatic cholelithiasis with chronic cholecystitis. PROCEDURE: Laparoscopic cholecystectomy. SURGEON: Po Menchaca M.D. FINANCIAL SERVICES AGENT: NAYA Denise ANESTHESIA: General endotracheal. ESTIMATED BLOOD [...] of gallbladder. CC: Patient's family physician. [facility] 10-01-2022 Note OPERATIVE NOTE OPERATION DATE: 10/01/2022 [...] good condition. CC: Nguyen Zamorano M.D. [facility] 09-26-2022 Note Chief Complaint consultation for abdominal pain HPI Staff 31 year old female presents on consultation for Dr. Zamorano for abdominal pain. Presented to [place] ED 09/08 with RUQ and mid back [...] ate; also frequent loose stools; seen in [place] ED 09/08/22; normal labs, abd/pelvic ct scan [...] MRI Cholangiogram Panc (more content not included)... [facility] Comment on above: Result Comment: Elec tronically Signed By: NIKOLAI HENRY, Po Moore\Date and Time Signed: 09/26/22 13:27 EDT 09-26-2022 Evaluation + Plan note Diagnostic Tests PendingCBC w/ Auto Diff 09/26/22Basic Metabolic Panel 09/26/22Hepatic Function Panel 09/26/22Lipase Level 09/26/22 [facility] General Surgery [place] Evaluation note Diagnosis Weight gain- Primary Other symptoms concerning nutrition, metabolism, and development Vitamin D deficiency Encounter for dietary consultation Class 3 severe obesity due to excess calories without serious comorbidity with body mass index (BMI) of 40.0 to 44.9 in adult [facility] Encounter for gynecological examination (general) (routine) with abnormal findings- Primary Candidiasis of vulva Candidiasis of vulva and vagina Vulvar itching Screening for malignant neoplasm of cervix Screening for malignant neoplasm of the cervix Encounter for screening for human papillomavirus (HPV) [facility] Narrative No data available for this section [facility] Discharge instructions No data available for this section [facility] Progress note No data available for this section [facility] Summary Purpose Family History No Family History Records FoundNo Family History Records FoundNo Family History Records FoundNo Family History Records Found Advance Directives No Advanced Directives Records FoundNo Advanced Directives Records FoundNo Advanced Directives Records FoundNo Advanced Directives Records Found Additional Source Comments Patient Care team informatio n (unrecognized section and content) Sample Room Supervisor Relationship Specialty Start Date End Date Nguyen Zamorano MD [address] [place] [address] PCP - General Family Medicine 10/20/22 Sample Room Supervisor Relationship Specialty Start Date End Date Nguyen Zamorano MD [address] [place] [address] PCP - General Family Medicine 10/20/22 Sample Room Supervisor Relationship Specialty Start Date End Date Nguyen Zamorano MD [address] [place] [address] PCP - General Family Medicine 11/09/24 Barbie Dang DO [facility] [address] [id number] Referring Physician Obstetrics and Gynecology 11/09/24 INFORMATION SOURCE (unrecogn ized section and content) DATE CREATED AUTHOR 11/08/2022 [facility] DATE CREATED AUTHOR AUTHOR'S ORGANIZ ATION 12/01/2022 Jose C [facility] DATE CREATED AUTHOR AUTHOR'S ORGANIZ ATION 07/11/2024 [facility] DATE CREATED AUTHOR AUTHOR'S ORGANIZ ATION 11/14/2024 [facility] Reason for Visit (unrecogniz ed section and content) Reason Comments HORMONES NEW NO REFERRAL LABS ON PHONE Reason Comments Gynecologic Exam Patient here for a y early. Denies problems. Patient having periods every month lasting 5 days with normal bleeding and no cramping LMP 10/09/24 Never been sexually active. FOR RECORDS PERTAINING TO PATIENTS WHO ARE [...] BE BASED ON THE PRIMARY CLINICAL RECORDS. [facility] [employer] provides no warranty or guarantee of the accuracy or completeness of information in this document.
--- NOTE | 2024-12-14 07:00 | US_ITS ---
The [address] [address] Patient Name: FRANKLIN MOROCHO MRN: [id number] date: 1990 Sex: F Assigned Patient Location: Current Patient Location: US Accession/Order Number: [id number] Exam Date: 12/14/2024 08:47 Report Date: 12/14/2024 08:49 At the request of: NGUYEN STARR MD Procedure: US right upper quadrant LIMITED RIGHT UPPER QUADRANT ABDOMINAL ULTRASOUND CLINICAL HISTORY: Elevated liver enzymes. Prior cholecystectomy. COMPARISON: CT 09/08/2022 and MRI 10/06/2022 The gallbladder is surgically absent. No hepatic biliary dilatation is evident. The common duct is slightly prominent measuring 6-7 mm. The liver parenchyma shows increased echogenicity suggesting fatty infiltration. No focal intrahepatic masses are seen. There is appropriate hepatopetal flow within the main portal vein. The pancreas shows no significant sonographic abnormality. Cursory evaluation of the right kidney reveals no hydronephrosis or fluid within Valadez's pouch. US/US right upper quadrant IMPRESSION: MILD COMMON DUCT PROMINENCE THAT MAY RELATE TO PREVIOUS CHOLECYSTECTOMY. FATTY LIVER. Impression dictated by: Irene Zamudio M.D. 12/14/2024 8:49 AM Dictation Location: [place] [address] Electronically authenticated by: [id number] Y Date: 12/14/2024 08:49
[2024-12-14 07:46] LABS: Alanine Aminotransferase 81 U/L (14-59); Albumin Globulin Ratio 1.1; Albumin Level 3.5 g/dL (3.4-5.0); Alkaline Phosphatase 73 U/L (46-116); Anion Gap 13.5; Aspartate Amino Transferase 32 U/L (15-37); Blood Urea Nitrogen 13.0 mg/dL (7.0-18.0); Calcium 8.6 mg/dL (8.5-10.1); Carbon Dioxide 25.6 mmol/L (21.0-32.0); Chloride 108 mmol/L (98-107); Estimated GFR (African America >60 (>=60 mL/min/1.73m^2); Estimated GFR (Non-African Ame >60 (>=60 mL/min/1.73m^2); Globulin 3.3 g/dL; Glucose 101 mg/dL (74-106); Potassium 4.1 mmol/L (3.5-5.1); Sodium 143 mmol/L (136-145); Total Protein 6.8 g/dL (6.4-8.2)
== END 2024-12-14 06:57 | disposition home or self-care (01) ==
LOC: US 06:56
PROVIDERS: PCP Family Medicine; Visit Provider Family Medicine
DX: R74.8 Abnormal levels of other serum enzymes (principal); R74.01 Elevation of levels of liver transaminase levels; K76.0 Fatty (change of) liver, not elsewhere classified
CPT/HCPCS: 36415; 76705; 80053

== ENCOUNTER 2025-02-24 07:25 | Outpatient (OUT) | payer OTHER, SELFPAY ==
--- OUTSIDE RECORDS SUMMARY | 2025-02-24 07:29 | XMS_ITS | CCD ---
Author Organization [facility] Care Team Providers [facility] [employer]chandising Manager Name Role Phone Nguyen Zamorano Primary Care Physician LONA ., DR CEDILLO Primary Care Unavailable [...] VERONICA [employer] Unavailable HOY ., DR ECDILLO Primary Care Unavailable NILL ., DR FONTENOT [...] Unavailable Nguyen Zamorano MD Primary Care Provider [phone] Nguyen Zamorano MD Primary Care Provider [phone] Barbie Dang DO Unavailable [phone] Allergies Allergy Classification Reported Allergen(s) Allergy Type Date of Onset Reaction(s) Facility (1 source) No Known Medication Allergies; Translations: [No Known Medication Allergies] Propensity to adverse reactions (disorder) [facility] Repository Medications Current Medications Medication Drug Class(es) Dates Sig (Normalized) Sig (Original) esomeprazole 40 mg delayed release oral capsule (9 sources) Proton Pump Inhibitor Start: 10-08-2022 take 1 capsule by mouth once daily Nexium 40 mg Cap-EC 40 mg = 1 cap(s), Oral, Daily, # 90 cap(s), Refills(s) 1, Pharmacy: [facility]/pharmacy #[id number], 157.4, cm, 09/26/22 10:43:00 EDT, Height/Length Dosing, 91.7, kg, 09/26/22 10:43:00 EDT, Weight Dosing Start Date: 10/08/22 Status: Ordered folic acid 1 mg oral tablet (7 sources) take 1 tablet by mouth once daily folic acid (Folvite) 1 MG tablet Take 1 mg by mouth Daily Active hyoscyamine sulfate 0.125 mg disintegrating oral tablet (3 sources) Start: 09-26-2022 take 1 tablet by mouth four times daily hyoscyamine 0.125 mg oral tablet, disintegrating 0.125 mg = 1 tab(s), Oral, QID, Refills(s) 0 Start Date: 09/26/22 Status: Ordered metFORMIN hydrochloride 500 mg oral tablet (2 sources) Biguanide Start: 12-28-2024 End: 06-26-2025 take 1 tablet by mouth in the morning metFORMIN (Glucophage) 500 MG tablet Indications: Weight gain Take 1 tablet (500 mg) by mouth in the morning and 1 tablet (500 mg) in the evening. Take with meals. 180 tablet 1 12/28/2024 06/26/2025 Active methotrexate 2.5 mg oral tablet (7 sources) Folate Analog Metabolic Inhibitor methotrexate 2.5 [...] 0 Start Date: 09/26/22 Status: Ordered nystatin [id number] unt/ml / triamcinolone acetonide 1 mg/ml topical [...] Episodic Immunizations and screening for infectious disease (14 sources) Patient encounter status; Translations: [Encounter for screening for human papillomavirus (HPV)] Onset: 10-20-2022 10-20-2022 Episodic Mycoses (2 sources) Candidiasis of vulva; Translations: [Candidiasis of vulva] 11-09-2024 Episodic Nausea and vomiting (5 sources) Nausea and vomiting; Translations: [Nausea with vomiting, unspecified] Onset: 09-26-2022 Episodic Nonspecific chest pain (2 sources) Other chest pain; Translations: [Other chest pain] Onset: 05-03-2024 Episodic Nutritional deficiencies (4 sources) Vitamin D deficiency; Translations: [Vitamin D deficiency, unspecified] 09-21-2024 Chronic Other inflammatory condition of skin (2 sources) Pruritus of vulva; Translations: [Pruritus vulvae] 11-09-2024 Episodic Other nutritional; endocrine; and metabolic disorders (3 sources) Body mass index 30+ - obesity 09-26-2022 Chronic Other nutritional; endocrine; and metabolic disorders (4 sources) Severe obesity; Translations: [Class 3 severe obesity due to excess calories without serious comorbidity with body mass index (BMI) of 40.0 to 44.9 in adult] 09-21-2024 Chronic Other nutritional; endocrine; and metabolic disorders (4 sources) Weight increased; Translations: [Abnormal weight gain] 09-21-2024 Episodic Past or Other Problems Problem Classification Problem Date Documented Da te Episodic/Chronic Other screening for suspected conditions (not mental disorders or infectious disease) (10 sources) Cancer cervix screening status; Translations: [Encounter for screening for malignant neoplasm of cervix] Onset: 10-20-2022 10-20-2022 Episodic Ovarian cyst (11 sources) Cyst of ovary; Translations: [Cyst of left ovary] Onset: 10-15-2022 09-22-2022 Episodic Results Test Name Value Interpretation Reference Range Facility C3 AND C4on 01-25-2025 C 3 143 MG/DL Normal (88 - 165) [facility] Comment on above: Performed By: #### C BC-D, CMP, UAFLX, ENA6, *GAGE-T, ACAX3, PCR-R, C3-C4, ESRCRP, VD25, CK, HBCA, HBSAB, CCP, RHF #### [facility] [address] [facility], [address] C 4 35 MG/DL Normal (14 - 44) [facility] Comment on above: Performed By: #### C BC-D, CMP, UAFLX, ENA6, *GAGE-T, ACAX3, PCR-R, C3-C4, ESRCRP, VD25, CK, HBCA, HBSAB, CCP, RHF #### [facility] [address] [facility], [address] CBC WITH DIFFon 01-25-[address] 0.01 x10^3ul Normal (0.00 - 0.16) [facility] Comment on above: Order Comment: 1C 1L FACILITY: [facility] [id number] Performed By: #### C BC-D, CMP, UAFLX, ENA6, *GAGE-T, ACAX3, PCR-R, C3-C4, ESRCRP, VD25, CK, HBCA, HBSAB, CCP, RHF #### [facility] [address] [facility], [address] Basophils/100 WBC (Bld) 0.2 % Normal () [facility] Comment on above: Order Comment: 1C 1L FACILITY: [facility] [id number] Performed By: #### C BC-D, CMP, UAFLX, ENA6, *GAGE-T, ACAX3, PCR-R, C3-C4, ESRCRP, VD25, CK, HBCA, HBSAB, CCP, RHF #### [facility] [address] [facility], [address] 0.03 x10^3ul Normal (0.00 - 0.40) [facility] Comment on above: Order Comment: 1C 1L FACILITY: [facility] [id number] Performed By: #### C BC-D, CMP, UAFLX, ENA6, *GAGE-T, ACAX3, PCR-R, C3-C4, ESRCRP, VD25, CK, HBCA, HBSAB, CCP, RHF #### [facility] [address] [facility], [phone] Eosinophils/100 WBC (Bld) 0.6 % Normal () [facility] Comment on above: Order Comment: 1C 1L FACILITY: [facility] [id number] Performed By: #### C BC-D, CMP, UAFLX, ENA6, *GAGE-T, ACAX3, PCR-R, C3-C4, ESRCRP, VD25, CK, HBCA, HBSAB, CCP, RHF #### [facility] [address] [facility], [id number] Hematocrit (Bld) [Volume fraction] 39.1 % Normal (37.0 - 47.0) [facility] Comment on above: Order Comment: 1C 1L FACILITY: [facility] [id number] Performed By: #### C BC-D, CMP, UAFLX, ENA6, *GAGE-T, ACAX3, PCR-R, C3-C4, ESRCRP, VD25, CK, HBCA, HBSAB, CCP, RHF #### [facility] [address] [facility], [id number] Hemoglobin (Bld) [Mass/Vol] 12.9 g/dL Normal (12.0 - 16.0) [facility] Comment on above: Order Comment: 1C 1L FACILITY: [facility] [id number] Performed By: #### C BC-D, CMP, UAFLX, ENA6, *GAGE-T, ACAX3, PCR-R, C3-C4, ESRCRP, VD25, CK, HBCA, HBSAB, CCP, RHF #### [facility] [address] [facility], [id number] IMMATURE GRAN CT 0.01 x10^3ul Normal (0.00 - 0.11) [facility] Comment on above: Order Comment: 1C 1L FACILITY: [facility] [id number] Performed By: #### C BC-D, CMP, UAFLX, ENA6, *GAGE-T, ACAX3, PCR-R, C3-C4, ESRCRP, VD25, CK, HBCA, HBSAB, CCP, RHF #### [facility] [address] [facility], [address] IMMATURE GRANS (IG) 0.2 % Normal () [facility] Comment on above: Order Comment: 1C 1L FACILITY: [facility] [id number] Performed By: #### C BC-D, CMP, UAFLX, ENA6, *GAGE-T, ACAX3, PCR-R, C3-C4, ESRCRP, VD25, CK, HBCA, HBSAB, CCP, RHF #### [facility] [address] [facility], [address] 1.61 x10^3ul Normal (0.96 - 5.40) [facility] Comment on above: Order Comment: 1C 1L FACILITY: [facility] [id number] Performed By: #### C BC-D, CMP, UAFLX, ENA6, *GAGE-T, ACAX3, PCR-R, C3-C4, ESRCRP, VD25, CK, HBCA, HBSAB, CCP, RHF #### [facility] [address] [facility], [address] LYMPS 32.0 % Normal () [facility] Comment on above: Order Comment: 1C 1L FACILITY: [facility] [id number] Performed By: #### C BC-D, CMP, UAFLX, ENA6, *GAGE-T, ACAX3, PCR-R, C3-C4, ESRCRP, VD25, CK, HBCA, HBSAB, CCP, RHF #### [facility] [address] [facility], [address] MCH (RBC) [Entitic mass] 29.3 pg Normal (27.0 - 33.0) [facility] Comment on above: Order Comment: 1C 1L FACILITY: [facility] [id number] Performed By: #### C BC-D, CMP, UAFLX, ENA6, *GAGE-T, ACAX3, PCR-R, C3-C4, ESRCRP, VD25, CK, HBCA, HBSAB, CCP, RHF #### [facility] [address] [facility], [id number] MCHC (RBC) [Mass/Vol] 33.0 g/dL Normal (30.0 - 37.0) [facility] Comment on above: Order Comment: 1C 1L FACILITY: [facility] [id number] Performed By: #### C BC-D, CMP, UAFLX, ENA6, *GAGE-T, ACAX3, PCR-R, C3-C4, ESRCRP, VD25, CK, HBCA, HBSAB, CCP, RHF #### [facility] [address] [facility], [id number] MCV (RBC) [Entitic vol] 88.7 fL Normal (81.0 - 99.0) [facility] Comment on above: Order Comment: 1C 1L FACILITY: [facility] [id number] Performed By: #### C BC-D, CMP, UAFLX, ENA6, *GAGE-T, ACAX3, PCR-R, C3-C4, ESRCRP, VD25, CK, HBCA, HBSAB, CCP, RHF #### [facility] [address] [facility], [id number] MONOCYTE CT 0.41 x10^3ul Normal (0.10 - 0.90) [facility] Comment on above: Order Comment: 1C 1L FACILITY: [facility] [id number] Performed By: #### C BC-D, CMP, UAFLX, ENA6, *GAGE-T, ACAX3, PCR-R, C3-C4, ESRCRP, VD25, CK, HBCA, HBSAB, CCP, RHF #### [facility] [address] [facility], [id number] MONOS 8.2 % Normal () [facility] Comment on above: Order Comment: 1C 1L FACILITY: [facility] [id number] Performed By: #### C BC-D, CMP, UAFLX, ENA6, *GAGE-T, ACAX3, PCR-R, C3-C4, ESRCRP, VD25, CK, HBCA, HBSAB, CCP, RHF #### [facility] [address] [facility], [id number] NEUTROPHIL CT 2.96 x10^3ul Normal (1.50 - 7.00) [facility] Comment on above: Order Comment: 1C 1L FACILITY: [facility] [id number] Performed By: #### C BC-D, CMP, UAFLX, ENA6, *GAGE-T, ACAX3, PCR-R, C3-C4, ESRCRP, VD25, CK, HBCA, HBSAB, CCP, RHF #### [facility] [address] [facility], [id number] PLT 369 x10^3ul Normal (130 - 400) [facility] Comment on above: Order Comment: 1C 1L FACILITY: [facility] [id number] Performed By: #### C BC-D, CMP, UAFLX, ENA6, *GAGE-T, ACAX3, PCR-R, C3-C4, ESRCRP, VD25, CK, HBCA, HBSAB, CCP, RHF #### [facility] [address] [facility], [id number] RBC 4.41 x10^6ul Normal (4.20 - 5.40) [facility] Comment on above: Order Comment: 1C 1L FACILITY: [facility] [id number] Performed By: #### C BC-D, CMP, UAFLX, ENA6, *GAGE-T, ACAX3, PCR-R, C3-C4, ESRCRP, VD25, CK, HBCA, HBSAB, CCP, RHF #### [facility] [address] [facility], [id number] RDW-SD 49.1 fl High (37.0 - 49.0) [facility] Comment on above: Order Comment: 1C 1L FACILITY: [facility] [id number] Performed By: #### C BC-D, CMP, UAFLX, ENA6, *GAGE-T, ACAX3, PCR-R, C3-C4, ESRCRP, VD25, CK, HBCA, HBSAB, CCP, RHF #### [facility] [address] [facility], [id number] SEGS 58.8 % Normal () [facility] Comment on above: Order Comment: 1C 1L FACILITY: [facility] [id number] Performed By: #### C BC-D, CMP, UAFLX, ENA6, *GAGE-T, ACAX3, PCR-R, C3-C4, ESRCRP, VD25, CK, HBCA, HBSAB, CCP, RHF #### [facility] [address] [facility], [id number] WBC 5.03 x10^3ul Normal (3.80 - 10.60) [facility] Comment on above: Order Comment: 1C 1L FACILITY: [facility] [id number] Performed By: #### C BC-D, CMP, UAFLX, ENA6, *GAGE-T, ACAX3, PCR-R, C3-C4, ESRCRP, VD25, CK, HBCA, HBSAB, CCP, RHF #### [facility] [address] [facility], [id number] COMP MET PANEL w GFR(EPI)on 01-25-2025 Albumin [Mass/Vol] 4.4 g/dL Normal (3.5 - 5.0) [facility] Comment on above: Performed By: #### C BC-D, CMP, UAFLX, ENA6, *GAGE-T, ACAX3, PCR-R, C3-C4, ESRCRP, VD25, CK, HBCA, HBSAB, CCP, RHF #### [facility] [address] [facility], [id number] ALK PHOS 76 U/L Normal (38 - 126) [facility] Comment on above: Performed By: #### C BC-D, CMP, UAFLX, ENA6, *GAGE-T, ACAX3, PCR-R, C3-C4, ESRCRP, VD25, CK, HBCA, HBSAB, CCP, RHF #### [facility] [address] [facility], [id number] ALT [Catalytic activity/Vol] 100 U/L High (1 - 35) [facility] Comment on above: Performed By: #### C BC-D, CMP, UAFLX, ENA6, *GAGE-T, ACAX3, PCR-R, C3-C4, ESRCRP, VD25, CK, HBCA, HBSAB, CCP, RHF #### [facility] [address] [facility], [phone] AST [Catalytic activity/Vol] 69 U/L High (15 - 46) [facility] Comment on above: Performed By: #### C BC-D, CMP, UAFLX, ENA6, *GAGE-T, ACAX3, PCR-R, C3-C4, ESRCRP, VD25, CK, HBCA, HBSAB, CCP, RHF #### [facility] [address] [facility], [id number] Bilirubin [Mass/Vol] 0.7 mg/dL Normal (0.2 - 1.3) [facility] Comment on above: Performed By: #### C BC-D, CMP, UAFLX, ENA6, *GAGE-T, ACAX3, PCR-R, C3-C4, ESRCRP, VD25, CK, HBCA, HBSAB, CCP, RHF #### [facility] [address] [facility], [address] Calcium [Mass/Vol] 9.2 mg/dL Normal (8.6 - 10.6) [facility] Comment on above: Performed By: #### C BC-D, CMP, UAFLX, ENA6, *GAGE-T, ACAX3, PCR-R, C3-C4, ESRCRP, VD25, CK, HBCA, HBSAB, CCP, RHF #### [facility] [address] [facility], [address] Chloride [Moles/Vol] 108 mmol/L Normal (98 - 110) [facility] Comment on above: Performed By: #### C BC-D, CMP, UAFLX, ENA6, *GAGE-T, ACAX3, PCR-R, C3-C4, ESRCRP, VD25, CK, HBCA, HBSAB, CCP, RHF #### [facility] [address] [facility], [address] CO2 [Moles/Vol] 28 mmol/L Normal (22 - 30) [facility] Comment on above: Performed By: #### C BC-D, CMP, UAFLX, ENA6, *GAGE-T, ACAX3, PCR-R, C3-C4, ESRCRP, VD25, CK, HBCA, HBSAB, CCP, RHF #### [facility] [address] [facility], [address] Creatinine [Mass/Vol] 0.66 mg/dL Normal (0.52 - 1.04) [facility] Comment on above: Performed By: #### C BC-D, CMP, UAFLX, ENA6, *GAGE-T, ACAX3, PCR-R, C3-C4, ESRCRP, VD25, CK, HBCA, HBSAB, CCP, RHF #### [facility] [address] [facility], [address] GFR by CKD-EPI 118.7 ML/M1.7 Normal (60.0) [facility] Comment on above: Performed By: #### C BC-D, CMP, UAFLX, ENA6, *GAGE-T, ACAX3, PCR-R, C3-C4, ESRCRP, VD25, CK, HBCA, HBSAB, CCP, RHF #### [facility] [address] [facility], [address] Glucose [Mass/Vol] 101 mg/dL Normal (74 - 106) [facility] Comment on above: Performed By: #### C BC-D, CMP, UAFLX, ENA6, *GAGE-T, ACAX3, PCR-R, C3-C4, ESRCRP, VD25, CK, HBCA, HBSAB, CCP, RHF #### [facility] [address] [facility], [address] Potassium [Moles/Vol] 4.3 mmol/L Normal (3.5 - 5.1) [facility] Comment on above: Performed By: #### C BC-D, CMP, UAFLX, ENA6, *GAGE-T, ACAX3, PCR-R, C3-C4, ESRCRP, VD25, CK, HBCA, HBSAB, CCP, RHF #### [facility] [address] [facility], [address] Protein [Mass/Vol] 7.2 g/dL Normal (6.3 - 8.2) [facility] Comment on above: Performed By: #### C BC-D, CMP, UAFLX, ENA6, *GAGE-T, ACAX3, PCR-R, C3-C4, ESRCRP, VD25, CK, HBCA, HBSAB, CCP, RHF #### [facility] [address] [facility], [address] Sodium [Moles/Vol] 139 mmol/L Normal (135 - 145) [facility] Comment on above: Performed By: #### C BC-D, CMP, UAFLX, ENA6, *GAGE-T, ACAX3, PCR-R, C3-C4, ESRCRP, VD25, CK, HBCA, HBSAB, CCP, RHF #### [facility] [address] [facility], [address] Urea nitrogen [Mass/Vol] 8 mg/dL Normal (4 - 25) [facility] Comment on above: Performed By: #### C BC-D, CMP, UAFLX, ENA6, *GAGE-T, ACAX3, PCR-R, C3-C4, ESRCRP, VD25, CK, HBCA, HBSAB, CCP, RHF #### [facility] [address] [facility], [id number] SED RATE - CRPon 01-25-2025 CRP EXTENDED RANGE 1.52 MG/L Normal (0.00 - 5.00) [facility] Comment on above: Performed By: #### C BC-D, CMP, UAFLX, ENA6, *GAGE-T, ACAX3, PCR-R, C3-C4, ESRCRP, VD25, CK, HBCA, HBSAB, CCP, RHF #### [facility] [address] [facility], [id number] SED RATE WEST. 3 MM/HR Normal (0 - 25) [facility] Comment on above: Performed By: #### C BC-D, CMP, UAFLX, ENA6, *GAGE-T, ACAX3, PCR-R, C3-C4, ESRCRP, VD25, CK, HBCA, HBSAB, CCP, RHF #### [facility] [address] [facility], [address] CBC/ALB/ALT/AST/ALK/CRon Albumin [Mass/Vol] 4.5 g/dL Normal (3.5 - 5.0) [facility] Comment on above: Order Comment: FACIL ITY: [facility] [id number] Performed By: #### C BC-D, CMP, UAFLX, ENA6, *GAGE-T, ACAX3, PCR-R, C3-C4, ESRCRP, VD25, CK, HBCA, HBSAB, CCP, RHF #### [facility] [address] [facility], [address] ALK PHOS 65 U/L Normal (38 - 126) [facility] Comment on above: Order Comment: [facility]IL ITY: [facility] [id number] Performed By: #### C BC-D, CMP, UAFLX, ENA6, *GAGE-T, ACAX3, PCR-R, C3-C4, ESRCRP, VD25, CK, HBCA, HBSAB, CCP, RHF #### [facility] [address] [facility], [phone] ALT [Catalytic activity/Vol] 75 U/L High (1 - 35) [facility] Comment on above: Order Comment: [facility]IL IT[facility]: [facility] [id number] Performed By: #### C BC-D, CMP, UAFLX, ENA6, *GAGE-T, ACAX3, PCR-R, C3-C4, ESRCRP, VD25, CK, HBCA, HBSAB, CCP, RHF #### [facility] [address] [facility], [id number] AST [Catalytic activity/Vol] 43 U/L Normal (15 - 46) [facility] Comment on above: Order Comment: [facility]: [facility] [id number] Performed By: #### C BC-D, CMP, UAFLX, ENA6, *GAGE-T, ACAX3, PCR-R, C3-C4, ESRCRP, VD25, CK, HBCA, HBSAB, CCP, RHF #### [facility] [address] [facility], [id number] Creatinine [Mass/Vol] 0.78 mg/dL Normal (0.52 - 1.04) [facility] Comment on above: Order Comment: [facility]: [facility] [id number] Performed By: #### C BC-D, CMP, UAFLX, ENA6, *GAGE-T, ACAX3, PCR-R, C3-C4, ESRCRP, VD25, CK, HBCA, HBSAB, CCP, RHF #### [facility] [address] [facility], [id number] GFR by CKD-EPI 102.8 ML/M1.7 Normal (60.0) [facility] Comment on above: Order Comment: [facility]: [facility] [id number] Performed By: #### C BC-D, CMP, UAFLX, ENA6, *GAGE-T, ACAX3, PCR-R, C3-C4, ESRCRP, VD25, CK, HBCA, HBSAB, CCP, RHF #### [facility] [address] [facility], [id number] Hematocrit (Bld) [Volume fraction] 34.8 % Low (37.0 - 47.0) [facility] Comment on above: Order Comment: [facility]: [facility] [id number] Performed By: #### C BC-D, CMP, UAFLX, ENA6, *GAGE-T, ACAX3, PCR-R, C3-C4, ESRCRP, VD25, CK, HBCA, HBSAB, CCP, RHF #### [facility] [address] [facility], [phone] Hemoglobin (Bld) [Mass/Vol] 11.4 g/dL Low (12.0 - 16.0) [facility] Comment on above: Order Comment: [facility]: [facility] [id number] Performed By: #### C BC-D, CMP, UAFLX, ENA6, *GAGE-T, ACAX3, PCR-R, C3-C4, ESRCRP, VD25, CK, HBCA, HBSAB, CCP, RHF #### [facility] [address] [facility], [id number] MCH (RBC) [Entitic mass] 28.9 pg Normal (27.0 - 33.0) [facility] Comment on above: Order Comment: [facility]: [facility] [id number] Performed By: #### C BC-D, CMP, UAFLX, ENA6, *GAGE-T, ACAX3, PCR-R, C3-C4, ESRCRP, VD25, CK, HBCA, HBSAB, CCP, RHF #### [facility] [address] [facility], [phone] MCHC (RBC) [Mass/Vol] 32.8 g/dL Normal (30.0 - 37.0) [facility] Comment on above: Order Comment: [facility]: [facility] [id number] Performed By: #### C BC-D, CMP, UAFLX, ENA6, *GAGE-T, ACAX3, PCR-R, C3-C4, ESRCRP, VD25, CK, HBCA, HBSAB, CCP, RHF #### [facility] [address] [facility], [address] MCV (RBC) [Entitic vol] 88.1 fL Normal (81.0 - 99.0) [facility] Comment on above: Order Comment: [facility]: [facility] [id number] Performed By: #### C BC-D, CMP, UAFLX, ENA6, *GAGE-T, ACAX3, PCR-R, C3-C4, ESRCRP, VD25, CK, HBCA, HBSAB, CCP, RHF #### [facility] [address] [facility], [id number] PLT 325 x10^3ul Normal (130 - 400) [facility] Comment on above: Order Comment: FACIL ITY: [facility] [id number] Performed By: #### C BC-D, CMP, UAFLX, ENA6, *GAGE-T, ACAX3, PCR-R, C3-C4, ESRCRP, VD25, CK, HBCA, HBSAB, CCP, RHF #### [facility] [address] [facility], [address] RBC 3.95 x10^6ul Low (4.20 - 5.40) [facility] Comment on above: Order Comment: FACIL ITY: [facility] [id number] Performed By: #### C BC-D, CMP, UAFLX, ENA6, *GAGE-T, ACAX3, PCR-R, C3-C4, ESRCRP, VD25, CK, HBCA, HBSAB, CCP, RHF #### [facility] [address] [facility], [address] WBC 6.01 x10^3ul Normal (3.80 - 10.60) [facility] Comment on above: Order Comment: FACIL ITY: [facility] [id number] Performed By: #### C BC-D, CMP, UAFLX, ENA6, *GAGE-T, ACAX3, PCR-R, C3-C4, ESRCRP, VD25, CK, HBCA, HBSAB, CCP, RHF #### [facility] [address] [facility], [id number] Laboratory - Cytologyon 10-30 Perinatal Social Worker Cyto stain Nom (Cvx/Vag) [ID] Comment [facility] Comment on above: Jamee Rios, Cyto logist (ASCP) Cytology report Cyto stain Doc (Cvx/Vag) Comment [facility] Comment on above: NEGATIVE FOR INTRAEP ITHELIAL LESION OR MALIGNANCY. Cytology report Cyto stain.thin prep Doc (Cvx/Vag) Comment [facility] Comment on above: This liquid based Th inPrep(R) pap test was screened with the use of an image guided system. Statement of adequacy Cyto stain (Cvx/Vag) [Interp] Comment [facility] Comment on above: Satisfactory for ivana luation. Endocervical and/or squamous metaplastic cells (endocervical component) are present. Laboratory - Microbiology an d Antimicrobial susceptibilityon 11-11-2024 HPV 16+18+31+33+35+39+ 45+51+52+56+58+59+ 66+68 DNA Probe+sig amp Ql (Cvx) Negative Negative [facility] Comment on above: This nucleic acid am plification test detects fourteen high- risk HPV types (16,18,31,33,35,39,45,51,52,56,58,59,66,68) without differentiation. Microscopic observation Other stain Nom (Unsp spec) . [facility] Laboratory - Miscellaneous t estson 11-11-2024 Service comment (Unsp spec) [Interp] Comment [facility] Comment on above: The Pap smear is a s creening test designed to aid in the detection of premalignant and malignant conditions of the uterine cervix. It is not a diagnostic procedure and should not be used as the sole means of detecting cervical cancer. Both false-positive and false-negative reports do occur. No Panel Informationon 11-11 Diagnosis ICD code [Identifier] Comment [facility] Comment on above: Z12.4 Z11.51 Performed at: 01 - [facility] [address] [id number] [employer] Work[employer] House Trailer: Magy John MD, Phone: [phone] Performed at: 02 - [facility] [address] [id number] Maintenance Work[employer] House Trailer: Magy John MD, Phone: [phone] Specimen Comment: No. of containers..01 ThinPrep Vial [facility] SED RATE - CRPon 11-11-2024 CRP EXTENDED RANGE 2.14 MG/L Normal (0.00 - 5.00) [facility] Comment on above: Performed By: #### C BC-D, CMP, UAFLX, ENA6, *GAGE-T, ACAX3, PCR-R, C3-C4, ESRCRP, VD25, CK, HBCA, HBSAB, CCP, RHF #### [facility] [address] [facility], [address] SED RATE WEST. 13 MM/HR Normal (0 - 25) [facility] Comment on above: Performed By: #### C BC-D, CMP, UAFLX, ENA6, *GAGE-T, ACAX3, PCR-R, C3-C4, ESRCRP, VD25, CK, HBCA, HBSAB, CCP, RHF #### [facility] [address] [facility], [address] C3 AND C4on 10-07-2024 C 3 165 MG/DL Normal (88 - 165) [facility] Comment on above: Performed By: #### C BC-D, CMP, UAFLX, ENA6, *GAGE-T, ACAX3, PCR-R, C3-C4, ESRCRP, VD25, CK, HBCA, HBSAB, CCP, RHF #### [facility] [address] [facility], [address] C 4 39 MG/DL Normal (14 - 44) [facility] Comment on above: Performed By: #### C BC-D, CMP, UAFLX, ENA6, *GAGE-T, ACAX3, PCR-R, C3-C4, ESRCRP, VD25, CK, HBCA, HBSAB, CCP, RHF #### [facility] [address] [facility], [id number] CBC/ALB/ALT/AST/ALK/CRon Albumin [Mass/Vol] 4.4 g/dL Normal (3.5 - 5.0) [facility] Comment on above: Order Comment: FACIL ITY: [facility] [id number] Performed By: #### C BC-D, CMP, UAFLX, ENA6, *GAGE-T, ACAX3, PCR-R, C3-C4, ESRCRP, VD25, CK, HBCA, HBSAB, CCP, RHF #### [facility] [address] [facility], [id number] ALK PHOS 63 U/L Normal (38 - 126) [facility] Comment on above: Order Comment: FACIL ITY: [facility] [id number] Performed By: #### C BC-D, CMP, UAFLX, ENA6, *GAGE-T, ACAX3, PCR-R, C3-C4, ESRCRP, VD25, CK, HBCA, HBSAB, CCP, RHF #### [facility] [address] [facility], [id number] ALT [Catalytic activity/Vol] 102 U/L High (1 - 35) [facility] Comment on above: Order Comment: FACIL ITY: [facility] [id number] Performed By: #### C BC-D, CMP, UAFLX, ENA6, *GAGE-T, ACAX3, PCR-R, C3-C4, ESRCRP, VD25, CK, HBCA, HBSAB, CCP, RHF #### [facility] [address] [facility], [id number] AST [Catalytic activity/Vol] 45 U/L Normal (15 - 46) [facility] Comment on above: Order Comment: [facility]ACIL ITY: [facility] [id number] Performed By: #### C BC-D, CMP, UAFLX, ENA6, *GAGE-T, ACAX3, PCR-R, C3-C4, ESRCRP, VD25, CK, HBCA, HBSAB, CCP, RHF #### [facility] [address] [facility], [id number] Creatinine [Mass/Vol] 0.66 mg/dL Normal (0.52 - 1.04) [facility] Comment on above: Order Comment: FACIL ITY: [facility] [id number] Performed By: #### C BC-D, CMP, UAFLX, ENA6, *GAGE-T, ACAX3, PCR-R, C3-C4, ESRCRP, VD25, CK, HBCA, HBSAB, CCP, RHF #### [facility] [address] [facility], [id number] GFR by CKD-EPI 119.5 ML/M1.7 Normal (60.0) [facility] Comment on above: Order Comment: [facility]IL ITY: [facility] [id number] Performed By: #### C BC-D, CMP, UAFLX, ENA6, *GAGE-T, ACAX3, PCR-R, C3-C4, ESRCRP, VD25, CK, HBCA, HBSAB, CCP, RHF #### [facility] [address] [facility], [id number] Hematocrit (Bld) [Volume fraction] 37.4 % Normal (37.0 - 47.0) [facility] Comment on above: Order Comment: [facility]IL [facility]: [facility] [id number] Performed By: #### C BC-D, CMP, UAFLX, ENA6, *GAGE-T, ACAX3, PCR-R, C3-C4, ESRCRP, VD25, CK, HBCA, HBSAB, CCP, RHF #### [facility] [address] [facility], [id number] Hemoglobin (Bld) [Mass/Vol] 11.9 g/dL Low (12.0 - 16.0) [facility] Comment on above: Order Comment: [facility]: [facility] [id number] Performed By: #### C BC-D, CMP, UAFLX, ENA6, *GAGE-T, ACAX3, PCR-R, C3-C4, ESRCRP, VD25, CK, HBCA, HBSAB, CCP, RHF #### [facility] [address] [facility], [address] MCH (RBC) [Entitic mass] 27.8 pg Normal (27.0 - 33.0) [facility] Comment on above: Order Comment: [facility]ACIL ITY: [facility] [id number] Performed By: #### C BC-D, CMP, UAFLX, ENA6, *GAGE-T, ACAX3, PCR-R, C3-C4, ESRCRP, VD25, CK, HBCA, HBSAB, CCP, RHF #### [facility] [address] [facility], [address] MCHC (RBC) [Mass/Vol] 31.8 g/dL Normal (30.0 - 37.0) [facility] Comment on above: Order Comment: FACIL ITY: [facility] [id number] Performed By: #### C BC-D, CMP, UAFLX, ENA6, *GAGE-T, ACAX3, PCR-R, C3-C4, ESRCRP, VD25, CK, HBCA, HBSAB, CCP, RHF #### [facility] [address] [facility], [address] MCV (RBC) [Entitic vol] 87.4 fL Normal (81.0 - 99.0) [facility] Comment on above: Order Comment: [facility]ACIL IT[facility]: [facility] [id number] Performed By: #### C BC-D, CMP, UAFLX, ENA6, *GAGE-T, ACAX3, PCR-R, C3-C4, ESRCRP, VD25, CK, HBCA, HBSAB, CCP, RHF #### [facility] [address] [facility], [address] PLT 314 x10^3ul Normal (130 - 400) [facility] Comment on above: Order Comment: FACIL ITY: [facility] [id number] Performed By: #### C BC-D, CMP, UAFLX, ENA6, *GAGE-T, ACAX3, PCR-R, C3-C4, ESRCRP, VD25, CK, HBCA, HBSAB, CCP, RHF #### [facility] [address] [facility], [address] RBC 4.28 x10^6ul Normal (4.20 - 5.40) [facility] Comment on above: Order Comment: FACIL ITY: [facility] [id number] Performed By: #### C BC-D, CMP, UAFLX, ENA6, *GAGE-T, ACAX3, PCR-R, C3-C4, ESRCRP, VD25, CK, HBCA, HBSAB, CCP, RHF #### [facility] [address] [facility], [address] WBC 7.08 x10^3ul Normal (3.80 - 10.60) [facility] Comment on above: Order Comment: FACIL ITY: [facility] [id number] Performed By: #### C BC-D, CMP, UAFLX, ENA6, *GAGE-T, ACAX3, PCR-R, C3-C4, ESRCRP, VD25, CK, HBCA, HBSAB, CCP, RHF #### [facility] [address] [facility], [address] SED RATE - CRPon 10-07-2024 CRP EXTENDED RANGE 1.49 MG/L Normal (0.00 - 5.00) [facility] Comment on above: Performed By: #### C BC-D, CMP, UAFLX, ENA6, *GAGE-T, ACAX3, PCR-R, C3-C4, ESRCRP, VD25, CK, HBCA, HBSAB, CCP, RHF #### [facility] [address] [facility], [address] SED RATE WEST. 6 MM/HR Normal (0 - 25) [facility] Comment on above: Performed By: #### C BC-D, CMP, UAFLX, ENA6, *GAGE-T, ACAX3, PCR-R, C3-C4, ESRCRP, VD25, CK, HBCA, HBSAB, CCP, RHF #### [facility] [address] [facility], [address] GAGE SUBTYPING (8)on 08-24-19 ANTI CENTROMERE B <0.4 Normal (0.0 - 10.0) [facility] Comment on above: Result Comment: PERF ORMED ON PHADIA EFFECTIVE 11-17-2022 Performed By: #### C BC-D, CMP, UAFLX, ENA6, *GAGE-T, ACAX3, PCR-R, C3-C4, ESRCRP, VD25, CK, HBCA, HBSAB, CCP, RHF #### [facility] [address] [facility], [id number] ANTI ds DNA 0.8 IU/ML Normal (0.0 - 15.0) [facility] Comment on above: Performed By: #### C BC-D, CMP, UAFLX, ENA6, *GAGE-T, ACAX3, PCR-R, C3-C4, ESRCRP, VD25, CK, HBCA, HBSAB, CCP, RHF #### [facility] [address] [facility], [address] ANTI SHERMAN-1 <0.3 Normal (0.0 - 10.0) [facility] Comment on above: Performed By: #### C BC-D, CMP, UAFLX, ENA6, *GAGE-T, ACAX3, PCR-R, C3-C4, ESRCRP, VD25, CK, HBCA, HBSAB, CCP, RHF #### [facility] [address] [facility], [id number] ANTI SANDBLASTER PAINT SPRAYER (U1RNP) 0.9 U/mL Normal (0.0 - 10.0) [facility] Comment on above: Performed By: #### C BC-D, CMP, UAFLX, ENA6, *GAGE-T, ACAX3, PCR-R, C3-C4, ESRCRP, VD25, CK, HBCA, HBSAB, CCP, RHF #### [facility] [address] [facility], [phone] ANTI SCL 70 <0.6 Normal (0.0 - 10.0) [facility] Comment on above: Performed By: #### C BC-D, CMP, UAFLX, ENA6, *GAGE-T, ACAX3, PCR-R, C3-C4, ESRCRP, VD25, CK, HBCA, HBSAB, CCP, RHF #### [facility] [address] [facility], [id number] ANTI SWANSON <0.7 Normal (0.0 - 10.0) [facility] Comment on above: Performed By: #### C BC-D, CMP, UAFLX, ENA6, *GAGE-T, ACAX3, PCR-R, C3-C4, ESRCRP, VD25, CK, HBCA, HBSAB, CCP, RHF #### [facility] [address] [place], [place] [address]or Rd. [facility], [id number] ANTI SSB/LA <0.4 Normal (0.0 - 10.0) [facility] Comment on above: Performed By: #### C BC-D, CMP, UAFLX, ENA6, *GAGE-T, ACAX3, PCR-R, C3-C4, ESRCRP, VD25, CK, HBCA, HBSAB, CCP, RHF #### [facility] [address] [facility], [phone] SSA/RO52 <0.3 Normal (0.0 - 10.0) [facility] Comment on above: Performed By: #### C BC-D, CMP, UAFLX, ENA6, *GAGE-T, ACAX3, PCR-R, C3-C4, ESRCRP, VD25, CK, HBCA, HBSAB, CCP, RHF #### [facility] [address] [facility], [id number] SSA/RO60 <0.4 Normal (0.0 - 10.0) [facility] Comment on above: Performed By: #### C BC-D, CMP, UAFLX, ENA6, *GAGE-T, ACAX3, PCR-R, C3-C4, ESRCRP, VD25, CK, HBCA, HBSAB, CCP, RHF #### [facility] [address] [facility], [phone] GAGE with TITERon 08-23-2024 GAGE by HEp-2 CELLS Positive High (NEG - NEG) [facility] Comment on above: Performed By: #### C BC-D, CMP, UAFLX, ENA6, *GAGE-T, ACAX3, PCR-R, C3-C4, ESRCRP, VD25, CK, HBCA, HBSAB, CCP, RHF #### [facility] [address] [facility], [phone] GAGE TITER MIXED High (<1:40 - 1:40) [facility] Comment on above: Result Comment: 1:80 GAGE PATTERN = CENTROMERE1:320 GAGE PATTERN = NUCLEOLAR Performed By: #### C BC-D, CMP, UAFLX, ENA6, *GAGE-T, ACAX3, PCR-R, C3-C4, ESRCRP, VD25, CK, HBCA, HBSAB, CCP, RHF #### [facility] [address] [facility], [address] C3 AND C4on 08-23-2024 C 3 143 MG/DL Normal (88 - 165) [facility] Comment on above: Performed By: #### C BC-D, CMP, UAFLX, ENA6, *GAGE-T, ACAX3, PCR-R, C3-C4, ESRCRP, VD25, CK, HBCA, HBSAB, CCP, RHF #### [facility] [address] [facility], [address] C 4 26 MG/DL Normal (14 - 44) [facility] Comment on above: Performed By: #### C BC-D, CMP, UAFLX, ENA6, *GAGE-T, ACAX3, PCR-R, C3-C4, ESRCRP, VD25, CK, HBCA, HBSAB, CCP, RHF #### [facility] [address] [facility], [address] CARDIOLIPIN IGG, IGA, IGMon 08-23-2024 MARIO, IgA 1.5 U/mL Low (14.0 - 20.0) [facility] Comment on above: Performed By: #### C BC-D, CMP, UAFLX, ENA6, *GAGE-T, ACAX3, PCR-R, C3-C4, ESRCRP, VD25, CK, HBCA, HBSAB, CCP, RHF #### [facility] [address] [facility], [address] MARIO, IgG 1.0 U/mL Low (10.0 - 40.0) [facility] Comment on above: Performed By: #### C BC-D, CMP, UAFLX, ENA6, *GAGE-T, ACAX3, PCR-R, C3-C4, ESRCRP, VD25, CK, HBCA, HBSAB, CCP, RHF #### [facility] [address] [facility], [address] MARIO, IgM 29.0 U/mL Normal (10.0 - 40.0) [facility] Comment on above: Result Comment: Resu lt between 10.0 - 40.0 U/mL is considered weak positive -recommend initially retesting the patient after 8 - 12 weeks and then as clinically indicated. Performed By: #### C BC-D, CMP, UAFLX, ENA6, *GAGE-T, ACAX3, PCR-R, C3-C4, ESRCRP, VD25, CK, HBCA, HBSAB, CCP, RHF #### [facility] [address] [facility], [address] CBC WITH DIFFon 08-23-[address] 0.03 x10^3ul Normal (0.00 - 0.16) [facility] Comment on above: Order Comment: FACIL ITY: [facility] [id number] Performed By: #### C BC-D, CMP, UAFLX, ENA6, *GAGE-T, ACAX3, PCR-R, C3-C4, ESRCRP, VD25, CK, HBCA, HBSAB, CCP, RHF #### [facility] [address] [facility], [phone] (818) Basophils/100 WBC (Bld) 0.2 % Normal () [facility] Comment on above: Order Comment: FACIL ITY: [facility] [id number] Performed By: #### C BC-D, CMP, UAFLX, ENA6, *GAGE-T, ACAX3, PCR-R, C3-C4, ESRCRP, VD25, CK, HBCA, HBSAB, CCP, RHF #### [facility] [address] [facility], [address] 0.00 x10^3ul Normal (0.00 - 0.40) [facility] Comment on above: Order Comment: FACIL ITY: [facility] [id number] Performed By: #### C BC-D, CMP, UAFLX, ENA6, *GAGE-T, ACAX3, PCR-R, C3-C4, ESRCRP, VD25, CK, HBCA, HBSAB, CCP, RHF #### [facility] [address] [facility], [address] Eosinophils/100 WBC (Bld) 0.0 % Normal () [facility] Comment on above: Order Comment: FACIL ITY: [facility] [id number] Performed By: #### C BC-D, CMP, UAFLX, ENA6, *GAGE-T, ACAX3, PCR-R, C3-C4, ESRCRP, VD25, CK, HBCA, HBSAB, CCP, RHF #### [facility] [address] [facility], [phone] Hematocrit (Bld) [Volume fraction] 39.9 % Normal (37.0 - 47.0) [facility] Comment on above: Order Comment: FACIL ITY: [facility] [id number] Performed By: #### C BC-D, CMP, UAFLX, ENA6, *GAGE-T, ACAX3, PCR-R, C3-C4, ESRCRP, VD25, CK, HBCA, HBSAB, CCP, RHF #### [facility] [address] [facility], [phone] Hemoglobin (Bld) [Mass/Vol] 12.9 g/dL Normal (12.0 - 16.0) [facility] Comment on above: Order Comment: FACIL ITY: [facility] [id number] Performed By: #### C BC-D, CMP, UAFLX, ENA6, *GAGE-T, ACAX3, PCR-R, C3-C4, ESRCRP, VD25, CK, HBCA, HBSAB, CCP, RHF #### [facility] [address] [facility], [id number] IMMATURE GRAN CT 0.11 x10^3ul Normal (0.00 - 0.11) [facility] Comment on above: Order Comment: FACIL ITY: [facility] [id number] Performed By: #### C BC-D, CMP, UAFLX, ENA6, *GAGE-T, ACAX3, PCR-R, C3-C4, ESRCRP, VD25, CK, HBCA, HBSAB, CCP, RHF #### [facility] [address] [facility], [id number] IMMATURE GRANS (IG) 0.8 % Normal () [facility] Comment on above: Order Comment: FACIL ITY: [facility] [id number] Performed By: #### C BC-D, CMP, UAFLX, ENA6, *GAGE-T, ACAX3, PCR-R, C3-C4, ESRCRP, VD25, CK, HBCA, HBSAB, CCP, RHF #### [facility] [address] [facility], [address] 1.98 x10^3ul Normal (0.96 - 5.40) [facility] Comment on above: Order Comment: FACIL ITY: [facility] [id number] Performed By: #### C BC-D, CMP, UAFLX, ENA6, *GAGE-T, ACAX3, PCR-R, C3-C4, ESRCRP, VD25, CK, HBCA, HBSAB, CCP, RHF #### [facility] [address] [facility], [address] LYMPS 14.9 % Normal () [facility] Comment on above: Order Comment: FACIL ITY: [facility] [id number] Performed By: #### C BC-D, CMP, UAFLX, ENA6, *GAGE-T, ACAX3, PCR-R, C3-C4, ESRCRP, VD25, CK, HBCA, HBSAB, CCP, RHF #### [facility] [address] [facility], [address] MCH (RBC) [Entitic mass] 27.5 pg Normal (27.0 - 33.0) [facility] Comment on above: Order Comment: FACIL ITY: [facility] [id number] Performed By: #### C BC-D, CMP, UAFLX, ENA6, *GAGE-T, ACAX3, PCR-R, C3-C4, ESRCRP, VD25, CK, HBCA, HBSAB, CCP, RHF #### [facility] [address] [facility], [address] MCHC (RBC) [Mass/Vol] 32.3 g/dL Normal (30.0 - 37.0) [facility] Comment on above: Order Comment: FACIL ITY: [facility] [id number] Performed By: #### C BC-D, CMP, UAFLX, ENA6, *GAGE-T, ACAX3, PCR-R, C3-C4, ESRCRP, VD25, CK, HBCA, HBSAB, CCP, RHF #### [facility] [address] [facility], [id number] MCV (RBC) [Entitic vol] 85.1 fL Normal (81.0 - 99.0) [facility] Comment on above: Order Comment: FACIL ITY: [facility] [id number] Performed By: #### C BC-D, CMP, UAFLX, ENA6, *GAGE-T, ACAX3, PCR-R, C3-C4, ESRCRP, VD25, CK, HBCA, HBSAB, CCP, RHF #### [facility] [address] [facility], [id number] MONOCYTE CT 0.81 x10^3ul Normal (0.10 - 0.90) [facility] Comment on above: Order Comment: FACIL ITY: [facility] [id number] Performed By: #### C BC-D, CMP, UAFLX, ENA6, *GAGE-T, ACAX3, PCR-R, C3-C4, ESRCRP, VD25, CK, HBCA, HBSAB, CCP, RHF #### [facility] [address] [facility], [id number] MONOS 6.1 % Normal () [facility] Comment on above: Order Comment: FACIL ITY: [facility] [id number] Performed By: #### C BC-D, CMP, UAFLX, ENA6, *GAGE-T, ACAX3, PCR-R, C3-C4, ESRCRP, VD25, CK, HBCA, HBSAB, CCP, RHF #### [facility] [address] [facility], [address] 10.37 x10^3ul High (1.50 - 7.00) [facility] Comment on above: Order Comment: FACIL ITY: [facility] [id number] Performed By: #### C BC-D, CMP, UAFLX, ENA6, *GAGE-T, ACAX3, PCR-R, C3-C4, ESRCRP, VD25, CK, HBCA, HBSAB, CCP, RHF #### [facility] [address] [facility], [id number] PLT 379 x10^3ul Normal (130 - 400) [facility] Comment on above: Order Comment: FACIL ITY: [facility] [id number] Performed By: #### C BC-D, CMP, UAFLX, ENA6, *GAGE-T, ACAX3, PCR-R, C3-C4, ESRCRP, VD25, CK, HBCA, HBSAB, CCP, RHF #### [facility] [address] [facility], [address] RBC 4.69 x10^6ul Normal (4.20 - 5.40) [facility] Comment on above: Order Comment: FACIL ITY: [facility] [id number] Performed By: #### C BC-D, CMP, UAFLX, ENA6, *GAGE-T, ACAX3, PCR-R, C3-C4, ESRCRP, VD25, CK, HBCA, HBSAB, CCP, RHF #### [facility] [address] [facility], [address] RDW-SD 46.0 fl Normal (37.0 - 49.0) [facility] Comment on above: Order Comment: FACIL ITY: [facility] [id number] Performed By: #### C BC-D, CMP, UAFLX, ENA6, *GAGE-T, ACAX3, PCR-R, C3-C4, ESRCRP, VD25, CK, HBCA, HBSAB, CCP, RHF #### [facility] [address] [facility], [address] SEGS 78.0 % Normal () [facility] Comment on above: Order Comment: FACIL ITY: [facility] [id number] Performed By: #### C BC-D, CMP, UAFLX, ENA6, *GAGE-T, ACAX3, PCR-R, C3-C4, ESRCRP, VD25, CK, HBCA, HBSAB, CCP, RHF #### [facility] [address] [facility], [address] WBC 13.30 x10^3ul High (3.80 - 10.60) [facility] Comment on above: Order Comment: FACIL ITY: [facility] [id number] Performed By: #### C BC-D, CMP, UAFLX, ENA6, *GAGE-T, ACAX3, PCR-R, C3-C4, ESRCRP, VD25, CK, HBCA, HBSAB, CCP, RHF #### [facility] [address] [facility], [id number] COMP MET PANEL w GFR(EPI)on 08-23-2024 Albumin [Mass/Vol] 4.4 g/dL Normal (3.5 - 5.0) [facility] Comment on above: Performed By: #### C BC-D, CMP, UAFLX, ENA6, *GAGE-T, ACAX3, PCR-R, C3-C4, ESRCRP, VD25, CK, HBCA, HBSAB, CCP, RHF #### [facility] [address] [facility], [address] ALK PHOS 64 U/L Normal (38 - 126) [facility] Comment on above: Performed By: #### C BC-D, CMP, UAFLX, ENA6, *GAGE-T, ACAX3, PCR-R, C3-C4, ESRCRP, VD25, CK, HBCA, HBSAB, CCP, RHF #### [facility] [address] [facility], [address] ALT [Catalytic activity/Vol] 57 U/L High (1 - 35) [facility] Comment on above: Performed By: #### C BC-D, CMP, UAFLX, ENA6, *GAGE-T, ACAX3, PCR-R, C3-C4, ESRCRP, VD25, CK, HBCA, HBSAB, CCP, RHF #### [facility] [address] [facility], [address] AST [Catalytic activity/Vol] 27 U/L Normal (15 - 46) [facility] Comment on above: Performed By: #### C BC-D, CMP, UAFLX, ENA6, *GAGE-T, ACAX3, PCR-R, C3-C4, ESRCRP, VD25, CK, HBCA, HBSAB, CCP, RHF #### [facility] [address] [place] [address] Rd. [facility], [address] Bilirubin [Mass/Vol] 0.4 mg/dL Normal (0.2 - 1.3) [facility] Comment on above: Performed By: #### C BC-D, CMP, UAFLX, ENA6, *GAGE-T, ACAX3, PCR-R, C3-C4, ESRCRP, VD25, CK, HBCA, HBSAB, CCP, RHF #### [facility] [address] [place] [address] Rd. [facility], [id number] Calcium [Mass/Vol] 9.6 mg/dL Normal (8.6 - 10.6) [facility] Comment on above: Performed By: #### C BC-D, CMP, UAFLX, ENA6, *GAGE-T, ACAX3, PCR-R, C3-C4, ESRCRP, VD25, CK, HBCA, HBSAB, CCP, RHF #### [facility] [address] [facility], [address] Chloride [Moles/Vol] 110 mmol/L High (98 - 107) [facility] Comment on above: Performed By: #### C BC-D, CMP, UAFLX, ENA6, *GAGE-T, ACAX3, PCR-R, C3-C4, ESRCRP, VD25, CK, HBCA, HBSAB, CCP, RHF #### [facility] [address] [facility], [phone] CO2 [Moles/Vol] 24 mmol/L Normal (22 - 30) [facility] Comment on above: Performed By: #### C BC-D, CMP, UAFLX, ENA6, *GAGE-T, ACAX3, PCR-R, C3-C4, ESRCRP, VD25, CK, HBCA, HBSAB, CCP, RHF #### [facility] [address] [facility], [address] Creatinine [Mass/Vol] 0.62 mg/dL Normal (0.52 - 1.04) [facility] Comment on above: Performed By: #### C BC-D, CMP, UAFLX, ENA6, *GAGE-T, ACAX3, PCR-R, C3-C4, ESRCRP, VD25, CK, HBCA, HBSAB, CCP, RHF #### [facility] [address] [facility], [id number] GFR by CKD-EPI 121.3 ML/M1.7 Normal (60.0) [facility] Comment on above: Performed By: #### C BC-D, CMP, UAFLX, ENA6, *GAGE-T, ACAX3, PCR-R, C3-C4, ESRCRP, VD25, CK, HBCA, HBSAB, CCP, RHF #### [facility] [address] [facility], [address] Glucose [Mass/Vol] 91 mg/dL Normal (74 - 106) [facility] Comment on above: Performed By: #### C BC-D, CMP, UAFLX, ENA6, *GAGE-T, ACAX3, PCR-R, C3-C4, ESRCRP, VD25, CK, HBCA, HBSAB, CCP, RHF #### [facility] [address] [facility], [phone] Potassium [Moles/Vol] 4.5 mmol/L Normal (3.5 - 5.1) [facility] Comment on above: Performed By: #### C BC-D, CMP, UAFLX, ENA6, *GAGE-T, ACAX3, PCR-R, C3-C4, ESRCRP, VD25, CK, HBCA, HBSAB, CCP, RHF #### [facility] [address] [facility], [phone] Protein [Mass/Vol] 6.9 g/dL Normal (6.3 - 8.2) [facility] Comment on above: Performed By: #### C BC-D, CMP, UAFLX, ENA6, *GAGE-T, ACAX3, PCR-R, C3-C4, ESRCRP, VD25, CK, HBCA, HBSAB, CCP, RHF #### [facility] [address] [facility], [phone] Sodium [Moles/Vol] 137 mmol/L Normal (137 - 145) [facility] Comment on above: Performed By: #### C BC-D, CMP, UAFLX, ENA6, *GAGE-T, ACAX3, PCR-R, C3-C4, ESRCRP, VD25, CK, HBCA, HBSAB, CCP, RHF #### [facility] [address] [facility], [phone] Urea nitrogen [Mass/Vol] 14 mg/dL Normal (4 - 25) [facility] Comment on above: Performed By: #### C BC-D, CMP, UAFLX, ENA6, *GAGE-T, ACAX3, PCR-R, C3-C4, ESRCRP, VD25, CK, HBCA, HBSAB, CCP, RHF #### [facility] [address] [facility], [phone] CPKon 08-23-2024 CK [Catalytic activity/Vol] 30 U/L Normal (30 - 135) [facility] Comment on above: Performed By: #### C BC-D, CMP, UAFLX, ENA6, *GAGE-T, ACAX3, PCR-R, C3-C4, ESRCRP, VD25, CK, HBCA, HBSAB, CCP, RHF #### [facility] [address] [facility], [address] HEP B CORE AB, TOTALon 08-23 HEP B CORE AB Negative Normal (NEG - NEG) [facility] Comment on above: Performed By: #### C BC-D, CMP, UAFLX, ENA6, *GAGE-T, ACAX3, PCR-R, C3-C4, ESRCRP, VD25, CK, HBCA, HBSAB, CCP, RHF #### [facility] [address] [facility], [phone] HEP B SURF ABon 08-23-2024 HEP B SURF AB Negative Normal (NEG - NEG) [facility] Comment on above: Performed By: #### C BC-D, CMP, UAFLX, ENA6, *GAGE-T, ACAX3, PCR-R, C3-C4, ESRCRP, VD25, CK, HBCA, HBSAB, CCP, RHF #### [facility] [address] [facility], [phone] PROTEIN AND CREATININE (RAND OM)on 08-23-2024 Creatinine [Mass/Vol] 62.8 mg/dL Normal (20 - 320) [facility] Comment on above: Performed By: #### C BC-D, CMP, UAFLX, ENA6, *GAGE-T, ACAX3, PCR-R, C3-C4, ESRCRP, VD25, CK, HBCA, HBSAB, CCP, RHF #### [facility] [address] [facility], [phone] Protein (U) [Mass/Vol] 5.0 mg/dL Normal (0.0 - 12.0) [facility] Comment on above: Result Comment: PROT EIN, URINE = < 5.0 MG/DL PROTEIN, URINE MIN DETECTION = 5.0 MG/DL Performed By: #### C BC-D, CMP, UAFLX, ENA6, *GAGE-T, ACAX3, PCR-R, C3-C4, ESRCRP, VD25, CK, HBCA, HBSAB, CCP, RHF #### [facility] [address] [facility], [phone] URINE PROTEIN/CREAT RATIO 80 MG/G CR Normal (21 - 161) [facility] Comment on above: Performed By: #### C BC-D, CMP, UAFLX, ENA6, *GAGE-T, ACAX3, PCR-R, C3-C4, ESRCRP, VD25, CK, HBCA, HBSAB, CCP, RHF #### [facility] [address] [facility], [address] RF FACTORon 08-23-2024 RF FACTOR <9 Normal (0 - 12) [facility] Comment on above: Result Comment: RF F ACTOR = LESS THAN 9 IU/ML RF FACTOR MIN. DETECTION = 9 IU/ML. Performed By: #### C BC-D, CMP, UAFLX, ENA6, *GAGE-T, ACAX3, PCR-R, C3-C4, ESRCRP, VD25, CK, HBCA, HBSAB, CCP, RHF #### [facility] [address] [facility], [address] SED RATE - CRPon 08-23-2024 CRP EXTENDED RANGE <0.30 Normal (0.00 - 5.00) [facility] Comment on above: Performed By: #### C BC-D, CMP, UAFLX, ENA6, *GAGE-T, ACAX3, PCR-R, C3-C4, ESRCRP, VD25, CK, HBCA, HBSAB, CCP, RHF #### [facility] [address] [facility], [address] SED RATE WEST. 8 MM/HR Normal (0 - 25) [facility] Comment on above: Performed By: #### C BC-D, CMP, UAFLX, ENA6, *GAGE-T, ACAX3, PCR-R, C3-C4, ESRCRP, VD25, CK, HBCA, HBSAB, CCP, RHF #### [facility] [address] [facility], [address] URINALYSIS WITH REFLEX CULTU REon 08-23-2024 ALBUMIN Negative Normal (NONE - NEG) [facility] Comment on above: Performed By: #### C BC-D, CMP, UAFLX, ENA6, *GAGE-T, ACAX3, PCR-R, C3-C4, ESRCRP, VD25, CK, HBCA, HBSAB, CCP, RHF #### [facility] [address] [facility], [address] BACTERIA OCC Normal (NONE - OCC) [facility] Comment on above: Performed By: #### C BC-D, CMP, UAFLX, ENA6, *GAGE-T, ACAX3, PCR-R, C3-C4, ESRCRP, VD25, CK, HBCA, HBSAB, CCP, RHF #### [facility] [address] [facility], [address] Bilirubin Ql (U) Negative Normal (NEG) [facility] Comment on above: Performed By: #### C BC-D, CMP, UAFLX, ENA6, *GAGE-T, ACAX3, PCR-R, C3-C4, ESRCRP, VD25, CK, HBCA, HBSAB, CCP, RHF #### [facility] [address] [facility], [address] CHARACTER CLEAR Normal (CLEAR - HAZY) [facility] Comment on above: Performed By: #### C BC-D, CMP, UAFLX, ENA6, *GAGE-T, ACAX3, PCR-R, C3-C4, ESRCRP, VD25, CK, HBCA, HBSAB, CCP, RHF #### [facility] [address] [facility], [address] Color (U) P YEL Normal (P YEL - L AMB) [facility] Comment on above: Performed By: #### C BC-D, CMP, UAFLX, ENA6, *GAGE-T, ACAX3, PCR-R, C3-C4, ESRCRP, VD25, CK, HBCA, HBSAB, CCP, RHF #### [facility] [address] [place], [place] [address]or Rd. [facility], [address] Glucose Ql (U) Negative Normal (NEG) [facility] Comment on above: Performed By: #### C BC-D, CMP, UAFLX, ENA6, *GAGE-T, ACAX3, PCR-R, C3-C4, ESRCRP, VD25, CK, HBCA, HBSAB, CCP, RHF #### [facility] [address] [place] [address] Rd. [facility], [address] Ketones Ql (U) Negative Normal (NEG) [facility] Comment on above: Performed By: #### C BC-D, CMP, UAFLX, ENA6, *GAGE-T, ACAX3, PCR-R, C3-C4, ESRCRP, VD25, CK, HBCA, HBSAB, CCP, RHF #### [facility] [address] [place] [address] Rd. [facility], [address] LEUK. ESTERASE Negative Normal (NEG) [facility] Comment on above: Performed By: #### C BC-D, CMP, UAFLX, ENA6, *GAGE-T, ACAX3, PCR-R, C3-C4, ESRCRP, VD25, CK, HBCA, HBSAB, CCP, RHF #### [facility] [address] [place], [place] [address]or Rd. [facility], [address] Mucus Ql (Urine sed) OCC Normal (NONE - OCC) [facility] Comment on above: Performed By: #### C BC-D, CMP, UAFLX, ENA6, *GAGE-T, ACAX3, PCR-R, C3-C4, ESRCRP, VD25, CK, HBCA, HBSAB, CCP, RHF #### [facility] [address] [facility], [address] Nitrite Ql (U) Negative Normal (NEG) [facility] Comment on above: Performed By: #### C BC-D, CMP, UAFLX, ENA6, *GAGE-T, ACAX3, PCR-R, C3-C4, ESRCRP, VD25, CK, HBCA, HBSAB, CCP, RHF #### [facility] [address] [place] [address] Rd. [facility], [address] OCCULT BLD. Negative Normal (NEG) [facility] Comment on above: Performed By: #### C BC-D, CMP, UAFLX, ENA6, *GAGE-T, ACAX3, PCR-R, C3-C4, ESRCRP, VD25, CK, HBCA, HBSAB, CCP, RHF #### [facility] [address] [place] [address] Rd. [facility], [address] pH (U) 5.0 [pH] Normal (5.0 - 9.0) [facility] Comment on above: Performed By: #### C BC-D, CMP, UAFLX, ENA6, *GAGE-T, ACAX3, PCR-R, C3-C4, ESRCRP, VD25, CK, HBCA, HBSAB, CCP, RHF #### [facility] [address] [place] [address] Rd. [facility], [address] REFLEX CULTURE ADDED NO Normal () [facility] Comment on above: Performed By: #### C BC-D, CMP, UAFLX, ENA6, *GAGE-T, ACAX3, PCR-R, C3-C4, ESRCRP, VD25, CK, HBCA, HBSAB, CCP, RHF #### [facility] [address] [facility], [address] SP. GRAVITY 1.011 Normal (1.001 - 1.035) [facility] Comment on above: Performed By: #### C BC-D, CMP, UAFLX, ENA6, *GAGE-T, ACAX3, PCR-R, C3-C4, ESRCRP, VD25, CK, HBCA, HBSAB, CCP, RHF #### [facility] [address] [facility], [phone] SQUAMOUS EPI OCC Normal (NONE - OCC) [facility] Comment on above: Performed By: #### C BC-D, CMP, UAFLX, ENA6, *GAGE-T, ACAX3, PCR-R, C3-C4, ESRCRP, VD25, CK, HBCA, HBSAB, CCP, RHF #### [facility] [address] [facility], [phone] UR. RBC NONE Normal (0 - 2) [facility] Comment on above: Performed By: #### C BC-D, CMP, UAFLX, ENA6, *GAGE-T, ACAX3, PCR-R, C3-C4, ESRCRP, VD25, CK, HBCA, HBSAB, CCP, RHF #### [facility] [address] [facility], [phone] UR. WBC 0-4 Normal (0 - 4) [facility] Comment on above: Performed By: #### C BC-D, CMP, UAFLX, ENA6, *GAGE-T, ACAX3, PCR-R, C3-C4, ESRCRP, VD25, CK, HBCA, HBSAB, CCP, RHF #### [facility] [address] [facility], [phone] Urobilinogen (U) [Mass/Vol] 0.2 mg/dL Normal (0.2 - <2.0) [facility] Comment on above: Performed By: #### C BC-D, CMP, UAFLX, ENA6, *GAGE-T, ACAX3, PCR-R, C3-C4, ESRCRP, VD25, CK, HBCA, HBSAB, CCP, RHF #### [facility] [address] [facility], [address] VITAMIN D, 25 HYDROXYon 07-31 VITAMIN D, 25 36.9 NG/ML Normal (30.0 - 100.0) [facility] Comment on above: Result Comment: * * * VITAMIN D, 25 HYDROXY GENERAL GUIDELINE * * * DEFICIENCY = < OR = 20.0 NG/ML INSUFFICIENCY = 20.1 - 29.9 NG/ML SUFFICIENCY = 30.0 - 100.0 NG/ML TOXICITY = > 100.1 NG/ML Performed By: #### C BC-D, CMP, UAFLX, ENA6, *GAGE-T, ACAX3, PCR-R, C3-C4, ESRCRP, VD25, CK, HBCA, HBSAB, CCP, RHF #### [facility] [address] [facility], [phone] Office Visiton 06-10-2024 Follow-up visit [id number] Mikhail Leiva 1990 Date Provider Department Center 06/10/2024 BRISEIDA LEON Family History Problem Relation Age of Onset Other Mother Heart failure Maternal Grandmother Atrial fibrillation Maternal Grandmother Other Maternal Great-Grandmother Family Status - Relation Status Age at Mother Maternal Grandmother Maternal Great-Grandmother Other Level of Service:18117 NE OFFICE/OUTPATIENT ESTABLISHED LOW MDM [address] [facility] Office Visiton 05-03-2024 Follow-up visit [id number] Mikhail Leiva 1990 Date Provider Department [place] 05/03/2024 BRISEIDA LEON Family History Problem Relation Age of Onset Other Mother Heart failure Maternal Grandmother Atrial fibrillation Maternal Grandmother Family Status - Relation Status Age at Mother Maternal Grandmother Level of Service:29193 NE OFFICE/OUTPATIENT NEW MODERATE MDM [address] [facility] General Surgery Office/Clini c Noteon 12-01-2022 General [...] [place] Only if needed [address] [place] [address]- Additional Instructions: Problem List/Past Medical [...] abdominal pain Rt flank pain Symptomatic cholelithiasis [facility] Pathology Noteon 11-09-2022 Pathology Note [id number]#1.00CD:127 [facility] Operative Reporton Operative Report [id number]#1.00CD:127 [facility] PREG HCG QUALon 10-29-2022 , QUAL Negative Normal NEGATIVE [facility] Comment on above: Performed By: #### P REG #### [facility] [address] [place] [address] Dr. Krys Diaz Consent for Procedure/Surger yon 10-09-2022 Consent for Procedure/Surgery [id number]#[id number]:127 [facility] Pre-Certification Formon Pre-Certification Form [id number]#[id number]:127 [facility] Ambulatory Visit Summaryon 0 10-08-2022 Ambulatory Visit [...] sided abdominal pain Rt flank pain Normal [facility] General Surgery Office/Clini c Noteon 10-08-2022 [...] Daily, # 90 cap(s), Refills(s) 1, Pharmacy: [facility]/pharmacy #[id number], 157.4, cm, 09/26/22 10:43:00 EDT, Height/Length Dosing, 91.7, kg, 09/26/22 10:43:00 EDT, Weight Dosing E&M of Est. Patient Moderate 30-39 Min 49519 2. Hiatal hernia with GERD, (K44.9: Diaphragmatic hernia without obstruction or gangrene)Diaphragmatic hernia without obstruction or gangrene continue Nexium and Carafate; low fat diet Ordered: esomeprazole, 40 mg = 1 cap(s), Oral, Daily, # 90 cap(s), Refills(s) 1, Pharmacy: [facility]/pharmacy #[id number], 157.4, cm, 09/26/22 10:43:00 EDT, Height/Length Dosing, 91.7, kg, 09/26/22 10:43:00 EDT, Weight Dosing E&M of Est. Patient Moderate 30-39 Min 20665 3. 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 Patient Moderate 30-39 Min 96148 Follow-up No qualifying data available Problem List/Past [...] Substance Ab (more content not included)... Normal [facility] Comment on above: Result Comment: Elec tronically Signed By: NIKOLAI HENRY, Po Moore\Date and Time Signed: 10/08/22 15:53 EDT RAD - MRI Reporton 3 RAD - MRI Report [id number]#1.00CD:127 Normal [facility] Pathology Noteon 10-07-2022 Pathology Note [id number]#[id number]:127 Normal [facility] MRI ABDOMEN WO CONon 023 MRI [...] VERONICA VELARDE Date: 2022-10-06 08:51 Normal [facility] Operative Reporton 3 Operative Report [id number]:127 Normal [facility] PREG HCG QUALon 10-01-2022 , QUAL Negative Normal NEGATIVE [facility] Comment on above: Performed By: #### P REG #### [facility] [address] [place] [address] Dr. Krys Diaz Lab Reportson 09-30-2022 Lab Reports [id number]#[id number]:127 Normal [facility] CBC AUTO DIFFon 09-29-2022 BASO # 0.0 103/ul Normal 0.0-0.1 [facility] Comment on above: Performed By: #### C BC #### [facility] [address] [place] [address] Dr. Krys Diaz Basophils/100 WBC (Bld) 0.5 % Normal 0.2-2.0 [facility] Comment on above: Performed By: #### C BC #### [facility] [address] [place] [address] Dr. Krys Diaz EO # 0.0 103/ul Normal 0.0-0.7 [facility] Comment on above: Performed By: #### C BC #### [facility] [address] [place] [address] Dr. Krys Diaz Eosinophils/100 WBC (Bld) 0.6 % Critically low 0.9-7.0 [facility] Comment on above: Performed By: #### C BC #### [facility] [address] [place] [address] Dr. Krys Diaz Erythrocyte distribution width (RBC) [Ratio] 12.8 % Normal 11.0-15.0 [facility] Comment on above: Performed By: #### C BC #### [facility] [address] [place] [address] Dr. Krys Diaz Hematocrit (Bld) [Volume fraction] 40.0 % Normal 36.0-48.0 [facility] Comment on above: Performed By: #### C BC #### [facility] [address] [place] [address] Dr. Krys Diaz Hemoglobin (Bld) [Mass/Vol] 13.4 g/dL Normal 12.0-16.0 [facility] Comment on above: Performed By: #### C BC #### [facility] [address] [place] [address] Dr. Krys Diaz IG # 0.03 10e3/ul Normal 0.00-0.03 [facility] Comment on above: Performed By: #### C BC #### [facility] [address] [place] [address] Dr. Krys Diaz IG % 0.5 % Normal 0.0-0.5 [facility] Comment on above: Performed By: #### C BC #### [facility] [address] [place] [address] Dr. Krys Diaz LYMPH # 1.7 103/ul Normal 1.2-3.8 [facility] Comment on above: Performed By: #### C BC #### [facility] [address] [place] [address] Dr. Krys Diaz Lymphocytes/100 WBC (Bld) 26.7 % Normal 20.5-60.0 [facility] Comment on above: Performed By: #### C BC #### [facility] [address] [place] [address] Dr. Krys Diaz MANUAL DIFF REQ NO Normal [facility] Comment on above: Performed By: #### C BC #### [facility] [address] [place] [address] Dr. Krys Diaz MCH (RBC) [Entitic mass] 30.8 pg Normal 26.7-34.0 [facility] Comment on above: Performed By: #### C BC #### [facility] [address] [place] [address] Dr. Krys Diaz MCHC (RBC) [Mass/Vol] 33.5 g/dL Normal 29.9-35.2 [facility] Comment on above: Performed By: #### C BC #### [facility] [address] [place] [address] Dr. Krys Diaz MCV (RBC) [Entitic vol] 92.0 fL Normal 81.0-99.0 [facility] Comment on above: Performed By: #### C BC #### [facility] [address] [place] [address] Dr. Krys Diaz MONO # 0.5 103/ul Normal 0.3-0.8 [facility] Comment on above: Performed By: #### C BC #### [facility] [address] [place] [address] Dr. Krys Diaz Monocytes/100 WBC (Bld) 7.9 % Normal 1.7-12.0 [facility] Comment on above: Performed By: #### C BC #### [facility] [address] [place] [address] Dr. Krys Diaz NEUT # 4.1 103/ul Normal 1.4-6.5 [facility] Comment on above: Performed By: #### C BC #### [facility] [address] [place] [address] Dr. Krys Diaz Neutrophils/100 WBC (Bld) 63.8 % Normal 43.0-75.0 [facility] Comment on above: Performed By: #### C BC #### [facility] [address] [place] [address] Dr. Krys Diaz Platelet mean volume (Bld) [Entitic vol] 10.1 fL Normal 9.5-13.5 [facility] Comment on above: Performed By: #### C BC #### [facility] [address] [place] [address] Dr. Krys Diaz PLT 222 103/ul Normal 150-450 [facility] Comment on above: Performed By: #### C BC #### [facility] [address] [place] [address] Dr. Krys Diaz RBC 4.35 106/ul Normal 4.20-5.40 [facility] Comment on above: Performed By: #### C BC #### [facility] [address] [place] [address] Dr. Krys Diaz WBC 6.3 103/ul Normal 4.0-11.0 [facility] Comment on above: Performed By: #### C BC #### [facility] [address] [place] [address] Dr. Krys Diaz LIPASEon 09-29-2022 Lipase [Catalytic activity/Vol] 85.0 U/L Normal 73.0-393.0 [facility] Comment on above: Performed By: #### B MP, LIVER, LIPA ####[facility] [address] [place] [address]Dr. Krys Diaz LIVER PROFILEon 09-29-2022 Albumin [Mass/Vol] 3.6 g/dL Normal 3.4-5.0 [facility] Comment on above: Performed By: #### B MP, LIVER, LIPA ####[facility] [address] [address]Dr. Krys Diaz Albumin/Globulin [Mass ratio] 0.9 {ratio} Normal [facility] Comment on above: Performed By: #### B MP, LIVER, LIPA ####[facility] [address] [place] [address]Dr. Krys Diaz ALP [Catalytic activity/Vol] 63 U/L Normal 46-116 [facility] Comment on above: Performed By: #### B MP, LIVER, LIPA ####[facility] [address] [place], [place] [address]Dr. Krys Diaz ALT [Catalytic activity/Vol] 65 U/L Critically high 14-59 [facility] Comment on above: Performed By: #### B MP, LIVER, LIPA ####[facility] [address] [place], [place] [address]Dr. Krys Diaz AST [Catalytic activity/Vol] 35 U/L Normal 15-37 [facility] Comment on above: Performed By: #### B MP, LIVER, LIPA ####[facility] [address] [place], [place] [address]Dr. Krys Diaz BILI, CONJUGATED 0.1 mg/dL Normal 0.0-0.2 [facility] Comment on above: Performed By: #### B MP, LIVER, LIPA ####[facility] [address] [place], [place] [address]Dr. Krys Diaz Bilirubin [Mass/Vol] 0.5 mg/dL Normal 0.2-1.0 [facility] Comment on above: Performed By: #### B MP, LIVER, LIPA ####[facility] [address] [place] [address]Dr. Krys Diaz Globulin (S) [Mass/Vol] 3.9 g/dL Normal [facility] Comment on above: Performed By: #### B MP, LIVER, LIPA ####[facility] [address] [place], [place] [address]Dr. Krys Diaz Protein [Mass/Vol] 7.5 g/dL Normal 6.4-8.2 [facility] Comment on above: Performed By: #### B MP, LIVER, LIPA ####[facility] [address] [place] [id number]. Krys Diaz PROF CHEM 8 (BAS METB)on Anion gap [Moles/Vol] 9.5 mmol/L Normal [facility] Comment on above: Performed By: #### B MP, LIVER, LIPA #### [facility] [address] [address] [address] Krys Diaz Calcium [Mass/Vol] 9.0 mg/dL Normal 8.5-10.1 [facility] Comment on above: Performed By: #### B MP, LIVER, LIPA #### [facility] [address] [address] [address] Krys Diaz Chloride [Moles/Vol] 106 mmol/L Normal 98-107 [facility] Comment on above: Performed By: #### B MP, LIVER, LIPA #### [facility] Laboratory [address] [address] [address] Krys Diaz CO2 [Moles/Vol] 27.3 mmol/L Normal 21.0-32.0 [facility] Comment on above: Performed By: #### B MP, LIVER, LIPA #### [facility] [address] [address] [address] Krys Diaz Creatinine [Mass/Vol] 0.80 mg/dL Normal 0.55-1.02 [facility] Comment on above: Performed By: #### B MP, LIVER, LIPA #### [facility] [address] [address] [address] Krys Diaz EGFR-AF DJIBOUTIAN >60 Normal >=60 [facility] Comment on above: Performed By: #### B MP, LIVER, LIPA #### [facility] [address] [address] [address] Krys Diaz EGFR-NON AF DJIBOUTIAN >60 Normal >=60 [facility] Comment on above: Performed By: #### B MP, LIVER, LIPA #### [facility] [address] [address] [address] Krys Diaz Glucose [Mass/Vol] 100 mg/dL Normal 74-106 [facility] Comment on above: Performed By: #### B MP, LIVER, LIPA #### [facility] [address] [address] [address] Krys Diaz Potassium [Moles/Vol] 3.8 mmol/L Normal 3.5-5.1 [facility] Comment on above: Performed By: #### B MP, LIVER, LIPA #### [facility] [address] [address] [address] Krys Diaz Sodium [Moles/Vol] 139 mmol/L Normal 136-145 [facility] Comment on above: Performed By: #### B MP, LIVER, LIPA #### [facility] [address] [address] [address] Krys Diaz Urea nitrogen [Mass/Vol] 8.0 mg/dL Normal 7.0-18.0 [facility] Comment on above: Performed By: #### B MP, LIVER, LIPA #### [facility] [address] [place] [address] Dr. Krys Diaz Urea nitrogen/Creatinin e [Mass ratio] 10.0 mg/mg Normal [facility] Comment on above: Performed By: #### B MP, LIVER, LIPA #### [facility] [address] [place] [address] Dr. Krys Diaz Ambulatory Visit Summaryon 0 09-26-2022 Ambulatory Visit Summary BAILEEMIKHAILDANYELL Simmons :1990 Visit Date:09/26/2022 Ambulatory Visit Instructions Your Care Team Attending Physician - NIKOLAI HENRY, Po Mackey Primary Care Physician - Lona HENRY, Nguyen This Is Your Medications List Contact prescribing [...] 37.0-37.9, adult Cholelithiasis Eczema Left ovarian cyst [facility] Consent for Procedure/Surger yon 09-26-2022 Consent for Procedure/Surgery [id number]:127 Normal [facility] Pre-Certification Formon Pre-Certification Form [id number]:127 [facility] ED Note-Physicianon 09-19-19 ED Note-Physician [id number]:127 [facility] Physician Referralon 023 Physician Referral [id number]:127 Normal [facility] US SINGLE QUAD RT UPPERon US [...] by: SCOTTY COLINDRES Date: 2022-09-14 15:35 Normal [facility] CT ABD/PELV W CONon 09-10-[address] [...] Amber CARRILLO Date: 2022-09-08 23:07 Normal [facility] CBC AUTO DIFFon 09-08-2022 BASO # 0.0 103/ul Normal 0.0-0.1 [facility] Comment on above: Performed By: #### C BC #### [facility] [address] [address] [address] Krys Diaz Basophils/100 WBC (Bld) 0.3 % Normal 0.2-2.0 [facility] Comment on above: Performed By: #### C BC #### [facility] [address] [place] [address] Dr. Krys Diaz EO # 0.1 103/ul Normal 0.0-0.7 [facility] Comment on above: Performed By: #### C BC #### [facility] [address] [place] [address] Dr. Krys Diaz Eosinophils/100 WBC (Bld) 0.7 % Critically low 0.9-7.0 [facility] Comment on above: Performed By: #### C BC #### [facility] [address] [place] [address] Dr. Krys Diaz Erythrocyte distribution width (RBC) [Ratio] 12.8 % Normal 11.0-15.0 [facility] Comment on above: Performed By: #### C BC #### [facility] [address] [place] [address] Dr. Krys Diaz Hematocrit (Bld) [Volume fraction] 38.1 % Normal 36.0-48.0 [facility] Comment on above: Performed By: #### C BC #### [facility] [address] [place] [address] Dr. Krys Diaz Hemoglobin (Bld) [Mass/Vol] 12.9 g/dL Normal 12.0-16.0 [facility] Comment on above: Performed By: #### C BC #### [facility] [address] [place] [address] Dr. Krys Diaz IG # 0.01 10e3/ul Normal 0.00-0.03 [facility] Comment on above: Performed By: #### C BC #### [facility] [address] [place] [address] Dr. Krys Diaz IG % 0.1 % Normal 0.0-0.5 [facility] Comment on above: Performed By: #### C BC #### [facility] [address] [place] [address] Dr. Krys Diaz LYMPH # 2.4 103/ul Normal 1.2-3.8 [facility] Comment on above: Performed By: #### C BC #### [facility] [address] [place] [address] Dr. Krys Diaz Lymphocytes/100 WBC (Bld) 35.8 % Normal 20.5-60.0 [facility] Comment on above: Performed By: #### C BC #### [facility] [address] [place] [address] Dr. Krys Diaz MANUAL DIFF REQ NO Normal [facility] Comment on above: Performed By: #### C BC #### [facility] [address] [place] [address] Dr. Krys Diaz MCH (RBC) [Entitic mass] 30.0 pg Normal 26.7-34.0 [facility] Comment on above: Performed By: #### C BC #### [facility] [address] [place] [address] Dr. Krys Diaz MCHC (RBC) [Mass/Vol] 33.9 g/dL Normal 29.9-35.2 [facility] Comment on above: Performed By: #### C BC #### [facility] [address] [place] [address] Dr. Krys Diaz MCV (RBC) [Entitic vol] 88.6 fL Normal 81.0-99.0 [facility] Comment on above: Performed By: #### C BC #### [facility] [address] [place] [address] Dr. Krys Diaz MONO # 0.5 103/ul Normal 0.3-0.8 [facility] Comment on above: Performed By: #### C BC #### [facility] [address] [place] [address] Dr. Krys Diaz Monocytes/100 WBC (Bld) 7.0 % Normal 1.7-12.0 [facility] Comment on above: Performed By: #### C BC #### [facility] [address] [place] [address] Dr. Krys Diaz NEUT # 3.7 103/ul Normal 1.4-6.5 [facility] Comment on above: Performed By: #### C BC #### [facility] [address] [place] [address] Dr. Krys Diaz Neutrophils/100 WBC (Bld) 56.1 % Normal 43.0-75.0 [facility] Comment on above: Performed By: #### C BC #### [facility] [address] [place] [address] Dr. Krys Diaz Platelet mean volume (Bld) [Entitic vol] 8.9 fL Critically low 9.5-13.5 [facility] Comment on above: Performed By: #### C BC #### [facility] [address] [place] [address] Dr. Krys Diaz PLT 287 103/ul Normal 150-450 [facility] Comment on above: Performed By: #### C BC #### [facility] [address] [place] [address] Dr. Krys Diaz RBC 4.30 106/ul Normal 4.20-5.40 [facility] Comment on above: Performed By: #### C BC #### [facility] [address] [place] [address] Dr. Krys Diaz WBC 6.7 103/ul Normal 4.0-11.0 [facility] Comment on above: Performed By: #### C BC #### [facility] [address] [place] [address] Dr. Krys Diaz ER URINE PROFILEon 3 Bilirubin Ql (U) SMALL Abnormal NEGATIVE [facility] Comment on above: Performed By: #### U MICRO, ERUR #### [facility] [address] [place] [address] Dr. Krys Diaz Clarity (U) CLEAR Normal CLEAR [facility] Comment on above: Performed By: #### U MICRO, ERUR #### [facility] [address] [place] [address] Dr. Krys Diaz Color (U) YELLOW Normal YELLOW [facility] Comment on above: Performed By: #### U MICRO, ERUR #### [facility] [address] [place] [address] Dr. Krys Diaz ERUAHD A micrscopic examina tion will be performed if indicated. Normal [facility] Comment on above: Performed By: #### U MICRO, ERUR #### [facility] [address] [address] [address] Krys Diaz Glucose Ql (U) Negative Normal NEGATIVE [facility] Comment on above: Performed By: #### U MICRO, ERUR #### [facility] [address] [address] [address] Krys Diaz Hemoglobin Ql (U) LARGE Abnormal NEGATIVE [facility] Comment on above: Performed By: #### U MICRO, ERUR #### [facility] [address] [address] [address] Krys Diaz Ketones Ql (U) Negative Normal NEGATIVE [facility] Comment on above: Performed By: #### U MICRO, ERUR #### [facility] [address] [place] [address] Dr. Krys Diaz LEUKOCYTES Negative Normal NEGATIVE [facility] Comment on above: Performed By: #### U MICRO, ERUR #### [facility] [address] [address] [address] Krys Diaz Nitrite Ql (U) Negative Normal NEGATIVE [facility] Comment on above: Performed By: #### U MICRO, ERUR #### [facility] [address] [place] [address] Dr. Krys Diaz pH (U) 5.5 [pH] Normal 5-9 [facility] Comment on above: Performed By: #### U MICRO, ERUR #### [facility] [address] [address] [address] Krys Diaz Protein (U) [Mass/Vol] 30 mg/dL Abnormal NEGATIVE/ TRACE [facility] Comment on above: Performed By: #### U MICRO, ERUR #### [facility] [address] [place] [address] Dr. Krys Diaz SPEC GRAVITY >=1.030 Abnormal 1.005-<=1.0 25 [facility] Comment on above: Performed By: #### U MICRO, ERUR #### [facility] [address] [place] [address] Dr. Krys Diaz UR MICRO IND INDICATED Normal [facility] Comment on above: Performed By: #### U MICRO, ERUR #### [facility] [address] [address] [address] Krys Diaz Urobilinogen Qn (U) 1.0 {Paramjit'U}/dL Normal 0.2 - 1.0 [facility] Comment on above: Performed By: #### U MICRO, ERUR #### [facility] [address] [address] [address] Krys Diaz LIPASEon 09-08-2022 Lipase [Catalytic activity/Vol] 82.0 U/L Normal 73.0-393.0 [facility] Comment on above: Performed By: #### C MP, LIPA ####[facility] [address] [address]Dr. Krys Diaz PREG HCG QUALon 09-08-2022 , QUAL Negative Normal NEGATIVE [facility] Comment on above: Performed By: #### P REG ####[facility] [address] [address]Dr. Krys Diaz PROF 14(COMP METB)on 023 Albumin [Mass/Vol] 3.7 g/dL Normal 3.4-5.0 [facility] Comment on above: Performed By: #### C MP, LIPA ####[facility] [address] [address]Dr. Krys Diaz Albumin/Globulin [Mass ratio] 1.1 {ratio} Normal [facility] Comment on above: Performed By: #### C MP, LIPA ####[facility] [address] [address]Dr. Krys Diaz ALP [Catalytic activity/Vol] 67 U/L Normal 46-116 [facility] Comment on above: Performed By: #### C MP, LIPA ####[facility] [address] [address]Dr. Krys Diaz ALT [Catalytic activity/Vol] 38 U/L Normal 14-59 [facility] Comment on above: Performed By: #### C MP, LIPA ####[facility] [address] [id number] Krys Diaz Anion gap [Moles/Vol] 12.4 mmol/L Normal [facility] Comment on above: Performed By: #### C MP, LIPA ####[facility] [address] [address]Dr. Krys Diaz AST [Catalytic activity/Vol] 19 U/L Normal 15-37 [facility] Comment on above: Performed By: #### C MP, LIPA ####[facility] [address] [address]Dr. Krys Diaz Bilirubin [Mass/Vol] 0.4 mg/dL Normal 0.2-1.0 [facility] Comment on above: Performed By: #### C MP, LIPA ####[facility] [address] [place], [place] [address]Dr. Krys Diaz Calcium [Mass/Vol] 8.6 mg/dL Normal 8.5-10.1 [facility] Comment on above: Performed By: #### C MP, LIPA ####[facility] [address] [place], [place] [address]Dr. Krys Diaz Chloride [Moles/Vol] 105 mmol/L Normal 98-107 [facility] Comment on above: Performed By: #### C MP, LIPA ####[facility] [address] [place], [place] [address]Dr. Krys Diaz CO2 [Moles/Vol] 25.9 mmol/L Normal 21.0-32.0 [facility] Comment on above: Performed By: #### C MP, LIPA ####[facility] [address] [place], [place] [address]Dr. Krys Diaz Creatinine [Mass/Vol] 0.86 mg/dL Normal 0.55-1.02 [facility] Comment on above: Performed By: #### C MP, LIPA ####[facility] [address] [address]Dr. Krys Diaz EGFR-AF DJIBOUTIAN >60 Normal >=60 [facility] Comment on above: Performed By: #### C MP, LIPA ####[facility] [address] [address]Dr. Krys Diaz EGFR-NON AF DJIBOUTIAN >60 Normal >=60 [facility] Comment on above: Performed By: #### C MP, LIPA ####[facility] [address] [address]Dr. Krys Diaz Globulin (S) [Mass/Vol] 3.5 g/dL Normal [facility] Comment on above: Performed By: #### C MP, LIPA ####[facility] [address] [address]Dr. rKys Diaz Glucose [Mass/Vol] 102 mg/dL Normal 74-106 [facility] Comment on above: Performed By: #### C MP, LIPA ####[facility] [address] [address]Dr. Krys Diaz Potassium [Moles/Vol] 3.3 mmol/L Critically low 3.5-5.1 [facility] Comment on above: Performed By: #### C MP, LIPA ####[facility] [address] [address]Dr. Krys Diaz Protein [Mass/Vol] 7.2 g/dL Normal 6.4-8.2 [facility] Comment on above: Performed By: #### C MP, LIPA ####[facility] [address] [address]Dr. Krys Diaz Sodium [Moles/Vol] 140 mmol/L Normal 136-145 [facility] Comment on above: Performed By: #### C MP, LIPA ####[facility] [address] [address]Dr. Krys Diaz Urea nitrogen [Mass/Vol] 6.0 mg/dL Critically low 7.0-18.0 [facility] Comment on above: Performed By: #### C MP, LIPA ####[facility] [address] [address]Dr. Krys Diaz Urea nitrogen/Creatinin e [Mass ratio] 7.0 mg/mg Normal [facility] Comment on above: Performed By: #### C MP, LIPA ####[facility] [address] [address]Dr. Krys Diaz URINE MICROSCOPIC ONLYon BACTERIA TRACE Abnormal NONE SEEN [facility] Comment on above: Performed By: #### U MICRO, ERUR #### [facility] [address] [address] [address] Krys Diaz Bacteria identified Cx Nom (U) NOT INDICATED Normal [facility] Comment on above: Performed By: #### U MICRO, ERUR #### [facility] [address] [address] [address] Krys Diaz CAST NONE SEEN Normal NONE SEEN [facility] Comment on above: Performed By: #### U MICRO, ERUR #### [facility] [address] [place] [address] Dr. Krys Diaz Crystals LM Nom (Urine sed) NONE SEEN Normal NONE SEEN [facility] Comment on above: Performed By: #### U MICRO, ERUR #### [facility] [address] [place] [address] Dr. Krys Diaz Epithelial cells LM Ql (Urine sed) MODERATE Abnormal NONE SEEN /RARE [facility] Comment on above: Performed By: #### U MICRO, ERUR #### [facility] [address] [place] [address] Dr. Krys Diaz MUCOUS MODERATE Abnormal NONE SEEN [facility] Comment on above: Performed By: #### U MICRO, ERUR #### [facility] [address] [place] [address] Dr. Krys Diaz RBC 20-50 Abnormal 0-2 [facility] Comment on above: Performed By: #### U MICRO, ERUR #### [facility] [address] [address] [address] Krys Diaz WBC NONE SEEN Normal NONE SEEN [facility] Comment on above: Performed By: #### U MICRO, ERUR #### [facility] [address] [place] [address] Dr. Krys Diaz Vital Signs Date Time Vital Sign Value Performing Clinician Kiko stroud 12-28-2024 09:36-0400 Body height 157.5 cm Barby Arzate MD Work Phone: [facility] 12-28-2024 09:36-0400 Body mass index (BMI) [Ratio] 40.24 kg/m2 Barby Arzate MD Work Phone: [facility] 12-28-2024 09:36-0400 Body weight 99.79 kg Barby Arzate MD Work Phone: [facility] 12-28-2024 09:36-0400 Diastolic blood pressure 60 mm[Hg] Barby Arzate MD Work Phone: [facility] 12-28-2024 09:36-0400 Heart rate 75 /min Barby Arzate MD Work Phone: [facility] 12-28-2024 09:36-0400 Respiratory rate 16 /min Barby Arzate MD Work Phone: [facility] 12-28-2024 09:36-0400 SaO2% (BldA) [Mass fraction] 99 % Barby Arzate MD Work Phone: [facility] 12-28-2024 09:36-0400 Systolic blood pressure 98 mm[Hg] Barby Arzate MD Work Phone: [facility] 11-09-2024 11:30-0400 Body mass index (BMI) [Ratio] 40.6 kg/m2 Barbie Nataprawira DO Work Phone: [facility] 11-09-2024 11:30-0400 Body weight 100.7 kg Barbie Nataprawira DO Work Phone: [facility] 11-09-2024 11:30-0400 Diastolic blood pressure 74 mm[Hg] Barbie Nataprawira DO Work Phone: [facility] 11-09-2024 11:30-0400 Systolic blood pressure 118 mm[Hg] Barbie Nataprawira DO Work Phone: [facility] 09-21-2024 09:53-0400 Body height 157.5 cm Barby Arzate MD Work Phone: [facility] 09-21-2024 09:53-0400 Body mass index (BMI) [Ratio] 40.6 kg/m2 Barby Arzate MD Work Phone: [facility] 09-21-2024 09:53-0400 Body weight 100.7 kg Barby Arzate MD Work Phone: [facility] 09-21-2024 09:53-0400 Diastolic blood pressure 76 mm[Hg] Barby Arzate MD Work Phone: [facility] 09-21-2024 09:53-0400 Heart rate 78 /min Barby Arzate MD Work Phone: [facility] 09-21-2024 09:53-0400 Respiratory rate 18 /min Barby Arzate MD Work Phone: [facility] 09-21-2024 09:53-0400 SaO2% (BldA) [Mass fraction] 99 % Barby Arzate MD Work Phone: [facility] 09-21-2024 09:53-0400 Systolic blood pressure 120 mm[Hg] Barby Arzate MD Work Phone: [facility] 09-26-2022 10:37-0400 Blood Pressure Location Po MENCHACA [facility] 09-26-2022 10:37-0400 Diastolic blood pressure 76 mm[Hg] Po MENCHACA [facility] 09-26-2022 10:37-0400 Heart rate 80 /min Po MEN[facility]ACA [facility] 09-26-2022 10:37-0400 Respiratory rate 16 /min Po MENCHACA [facility] [place] 09-26-2022 10:37-0400 Systolic blood pressure 112 mm[Hg] Po M[facility]ACA [facility] [place] Encounters Encounter Date Encounter Type Care Provider Facility Start: 12-28-2024 End: 12-28-2024 [facility] Start: 12-28-2024 End: 12-28-2024 [employer] Arzate MD [facility] Start: 12-28-2024 End: 12-28-2024 Office outpatient visit 25 minutes Barby Arzate MD [facility] Comment on above: Weight gain (Primary Dx); Vitamin D deficiency; Encounter for dietary consultation; Class 3 severe obesity due to excess calories without serious comorbidity with body mass index (BMI) of 40.0 to 44.9 in adult ([facility]) Start: 11-09-2024 End: 11-09-2024 Patient encounter status Barbie [employer] DO Work Phone: [facility] Work Phone: Start: 11-09-2024 End: 11-09-2024 Periodic preventive med est patient 18-39 yrs Barbie Dang DO Work Phone: [facility] Comment on above: Encounter for gyneco logical examination (general) (routine) with abnormal findings (Primary Dx); Candidiasis of vulva; Vulvar itching; Screening for malignant neoplasm of cervix; Encounter for screening for human papillomavirus (HPV) Start: 09-21-2024 End: 09-21-2024 Brigido Arzate MD Work Phone: [facility] Start: 09-21-2024 End: 09-21-2024 Bamerin Arzate MD Work Phone: [facility] Start: 09-21-2024 End: 09-21-2024 Office outpatient new 45 minutes Barby Arzate MD Work Phone: [facility] Comment on above: Weight gain (Primary Dx); Vitamin D deficiency; Encounter for dietary consultation; Class 3 severe obesity due to excess calories without serious comorbidity with body mass index (BMI) of 40.0 to 44.9 in adult Start: 06-10-2024 End: 06-10-2024 ambulatory [facility] Start: 05-03-2024 End: 05-03-2024 ambulatory [facility] Start: 11-12-2022 End: 11-13-2022 ambulatory Po MENCHACA Facility:[facility] Start: 11-12-2022 End: 11-12-2022 Patient encounter procedure Po [facility] General Surgery [facility]aid [facility] Start: 10-29-2022 End: 10-30-[address] NGUYEN ZAMORANO . Facility:[facility] Start: 10-23-2022 Encounter for other preprocedural examination DR PO MENCHACA . [facility] Start: 10-21-2022 End: 10-22-[address] NGUYEN ZAMORANO . Facility:[facility] Start: 10-21-2022 End: 10-22-2022 Encounter for other preprocedural examination DR NGUYEN ZAMORANO . Facility:[facility] Start: 10-08-2022 End: 10-09-2022 ambulatory Po MENCHACA Facility:[facility] Start: 10-08-2022 End: 10-08-2022 Patient encounter procedure Po MENCHACA General Surgery Nill/Said [facility] Start: 10-06-2022 End: 10-07-[address] PO MENCHACA . Facility:[facility] Start: 10-01-2022 End: 10-02-[address] PO MENCHACA . Facility:[facility] Start: 09-29-2022 End: 09-30-[address] PO MENCHACA . Facility:[facility] Start: 09-26-2022 End: 09-27-2022 ambulatory Po MENCHACA Facility: [facility] Start: 09-26-2022 End: 09-26-2022 Patient encounter procedure [place] N[place] [facility] [place] Start: 09-17-2022 ambulatory Po MENCHACA Facility:[facility] Start: 09-17-2022 ambulatory Po [facility] Facility:[facility] Start: 09-11-2022 End: 09-12-[address] NGUYEN ZAMORANO . Facility: Start: 09-08-2022 End: 09-09-[address] MILADY GRIFFIN . Facility:[facility] Procedures Date Procedure Procedure Detail Performing Clinician Start: 11-09-2024 IGP, APT HPV,RFX 16/18,45 Barbie J Natapra gilson DO Work Phone: Start: 08-23-2024 Cyclic citrullinated peptide antibody Comment on above: Performed By: #### CBC-D, CMP, UAFLX, EN A6, *GAGE-T, ACAX3, PCR-R, C3-C4, ESRCRP, VD25, CK, HBCA, HBSAB, CCP, RHF #### [facility] [address] [facility], [address] Start: 10-29-2022 Laparoscopic cholecystectomy Po SINGH Daniel Start: 10-20-2022 Microscopic observation [Identifier] in Cervix by Cyto stain Barby Arzate MD Work Phone: Start: 10-01-2022 Esophagogastroduodenoscopy Po MENCHACA None (qualifier value) Raimundo MENCHACA Plan of Treatment Date Care Activity Detail Author Start: 11-09-2029 Screening for malignant neoplasm of cervix [facility] Start: 10-21-2027 Screening for malignant neoplasm of cervix [facility] Start: 11-15-2025 End: 11-15-2025 Patient encounter procedure [facility] Start: 10-20-2025 Screening for malignant neoplasm of cervix Pap Smear [facility] Start: 05-03-2025 End: 05-03-2025 Patient encounter procedure 05/03/2025 10:30 AM EST Office Visit [facility] [place] [facility] [address] [place] [address] Barby Arzate MD [address] [place] [address] [facility] Start: 01-30-2025 Influenza vaccination [facility] Start: 12-28-2024 End: 12-28-2024 Patient encounter procedure [facility] Comment on above: Arrived Start: 11-09-2024 End: 11-09-2024 Patient encounter procedure 11/09/2024 11:30 AM EDT Office Visit [facility] [address] [place] [address] [address] Barbie Dang DO [address] [address] [facility] Start: 09-21-2024 End: 09-21-2025 Thyroglobulin Antibody Thyroglobulin Antibody Lab Routine Weight gain Expected: 09/21/2024 (Approximate), Expires: 09/21/2025 [facility] Work Phone: Comment on above: Expected: 09/21/2024 (Approximate), Expi res: 09/21/2025 Start: 09-21-2024 End: 09-21-2025 Thyroid peroxidase antibody Thyroid peroxidase antibody Lab Routine Weight gain Expected: 09/21/2024 (Approximate), Expires: 09/21/2025 [facility] Comment on above: Expected: 09/21/2024 (Approximate), Expi res: 09/21/2025 Start: 09-21-2024 End: 09-21-2025 Thyrotropin [Units/volume] in Serum or Plasma TSH Lab Routine Weight gain Expected: 09/21/2024 (Approximate), Expires: 09/21/2025 [facility] Comment on above: Expected: 09/21/2024 (Approximate), Expi res: 09/21/2025 Start: 09-21-2024 End: 09-21-2025 Thyroxine (T4) free [Mass/volume] in Serum or Plasma T4, free Lab Routine Weight gain Expected: 09/21/2024 (Approximate), Expires: 09/21/2025 [facility] Comment on above: Expected: 09/21/2024 (Approximate), Expi res: 09/21/2025 Start: 09-21-2024 End: 09-21-2025 Triiodothyronine (T3) Free [Mass/volume] in Serum or Plasma T3, free Lab Routine Weight gain Expected: 09/21/2024 (Approximate), Expires: 09/21/2025 [facility] Comment on above: Expected: 09/21/2024 (Approximate), Expi res: 09/21/2025 Start: 09-21-2024 End: 09-21-2024 Patient encounter procedure 09/21/2024 10:00 AM EDT Office Visit [facility] [address] [place] [address] Barby Arzate MD [address] [place] [address] Arrived [facility] Comment on above: Arrived Immunizations Immunization Date Immunization Notes Care Provider Fa cility 08-03-2020 SARS-CoV-2 (COVID-19 ) mRNA BNT-162b2 vax Po MENCHACA [facility] [place] 07-13-2020 SARS-CoV-2 (COVID-19 ) mRNA BNT-162b2 vax Po MENCHACA [facility] [place] NEGATED: Highlighted row has not occurred!09-26-2022 influenza virus vaccine, unspecified formulation Po MENCHACA [facility] [place] Payers Date Payer Category Payer Unknown [id number] 2021 Private Health Insurance [employer] [id number] 1991 Unknown [id number] .2.593 1991 Unknown [id number] 2.16.840.1.745996.3.579 .2.593 1991 Unknown [id number] [id number] .2.593 1991 Unknown [id number] 2.16.840.1.255235.3.579 .2.593 1991 Unknown [id number] 2.16.840.1.207675.3.579 .2.593 1991 Unknown [id number] 2.16.840.1.435865.3.579 .2.593 1991 Unknown [id number] 2.16.840.1.229014.3.579 .2.593 1991 Unknown [id number] 2.16.840.1.389751.3.579 .2.727 1991 Unknown [id number] 2.16.840.1.301037.3.579 .2.727 1991 Unknown [id number] 2.16.840.1.198828.3.579 .2.727 1991 Unknown [id number] 2.16.840.1.657683.3.579 .2.727 1991 Unknown [id number] [id number] .2.727 Social History Date Type Detail Facility Start: 09-26-2022 End: 10-20-2022 Tobacco smoking status Never smoked tobacco (finding) [facility] Tobacco smoking status Never [facility] Start: 2023 End: 11-09-2024 Sex Assigned At Female [facility] Start: 10-20-2022 Tobacco use and exposure Smokeless tobacco non-user [facility] Start: 2023 Alcoholic beverage intake Current drinker of alcohol (finding) [facility] Start: 2023 End: 11-09-2024 History of Social function [facility] Start: 1990 Sex assigned at Not on file [facility] Start: 11-09-2024 Alcoholic beverage intake Lifetime non-drinker (finding) [facility] Functional Status Date Assessment Result Facility 09-26-2022 Functional Status N/A [facility] Clinical Notes 09-26-2022 to 12-28-2024 Barby Arzate MD - 12/28/2024 9:40 AM Misha Dang DO - 11/09/2024 11:30 AM Bree Arzate MD - 09/21/2024 10:00 AM EDT Note Date & Type Note Facility 12-28-2024 History of Present illness Narrative Franklin Leiva is a 34 y.o. female No ref. provider found presents with chief complaint of Thyroid Problem and Follow-up (LAB) HPI: IM : 11/2024 Follow-up visit 12/28/2024, she is off steroids by her windows application packager, currently all thyroid lab within normal limits on 11/2024, including antibodies negative, and she is still worried about her weight. HPI: 08/2024 New patient came by herself due to weight gain she has history of GAGE positive, started on high dose dexamethasone 2 mg 4 times a day and then went to windows application packager who cut the dose to 1 mg twice a day, and started her methotrexate, denies thyroid problem before not on any medication, her cycle is okay, never diagnosed with PCOS, never get before. SUBJECTIVE: MEDICATIONS: Current Outpatient Medications Medication Instructions esomeprazole (NEXIUM) 40 mg, Daily before breakfast folic acid (FOLVITE) 1 mg, Daily metFORMIN (GLUCOPHAGE) 500 mg, Oral, 2 times daily with meals methotrexate 2.5 mg ALLERGIES: No Known Allergies Past Medical History: Diagnosis Date GAGE positive Left ovarian cyst Past Surgical History: Procedure Laterality Date CHOLECYSTECTOMY 10/29/2022 REVIEW OF SYMPTOMS: 14 POINT OF SYSTEM REVIEWED AND NEGATIVE OBJECTIVE: Visit Vitals BP 98/60 Pulse 75 Resp 16 Ht 5' 2 Wt 220 lb SpO2 99% BMI 40.24 kg/m OB Status Having periods Smoking Status Never BSA 2.09 m Physical Exam Constitutional: Appearance: Normal appearance. [...] orders for this visit: Weight gain - metFORMIN (Glucophage) 500 MG tablet; Take 1 tablet (500 mg) by mouth in the morning and 1 tablet (500 mg) in the evening. Take with meals. I encouraged her about the importance of diet and especially intermittent fasting and we will start her metformin 500 twice a day. Vitamin D deficiency Encounter for dietary consultation Class 3 severe obesity due to excess calories without serious comorbidity with body mass index (BMI) of 40.0 to 44.9 in adult ([facility]) Diet and exercise reviewed with the patient Follow up in about 4 months (around 04/30/2025). documented in this encounter [facility] 11-09-2024 History of Present illness Narrative Images from the original note were not included. Barbie aDng DO Obstetrics and Gynecology Name: Franklin Leiva [...] 11/12/2024 4:36 PM documented in this encounter [facility] 09-21-2024 History of Present illness Narrative Franklin Leiva is a 33 y.o. female Barby Arzate MD presents with chief complaint of HORMONES (NEW NO REFERRAL LABS ON PHONE) HPI: HPI 08/2024 New patient came by herself due to weight gain she has history of GAGE positive, started on high dose dexamethasone 2 mg 4 times a day and then went to windows application packager who cut the dose to 1 mg [...] her we can not evaluate her for Domi syndrome while she is on steroids, needs to be off completely, I recommend to taper down and to speak with her windows application packager to be off, and then we will [...] months (around 12/21/2024). documented in this encounter [facility] 06-10-2024 Note Cardiology Clinic No te HPI: [...] is complete Briseida Carrasquillo MD Interventional Cardiology [facility] 05-03-2024 Note Cardiology Clinic No te [...] or concerns. Briseida Carrasquillo MD Interventional Cardiology [facility] 10-29-2022 Note OPERATIVE NOTE OPERATION DATE: 10/29/2022 PREOPERATIVE DIAGNOSIS: Symptomatic cholelithiasis. POSTOPERATIVE DIAGNOSIS: Symptomatic cholelithiasis with chronic cholecystitis. PROCEDURE: Laparoscopic cholecystectomy. SURGEON: Po Menchaca M.D. OFFICE RUNNER: NAYA Denise ANESTHESIA: General endotracheal. ESTIMATED BLOOD [...] of gallbladder. CC: Patient's family physician. [facility] 10-01-2022 Note OPERATIVE NOTE OPERATION DATE: [...] good condition. CC: Nguyen Zamorano M.D. [facility] 09-26-2022 Note Chief Complaint consultation for abdominal pain HPI Staff 31 year old female presents on consultation for Dr. Zamorano for abdominal pain. Presented to [place] ED 09/08 with RUQ and mid back [...] ate; also frequent loose stools; seen in [facility] 09/08/22; normal labs, abd/pelvic ct scan [...] MRI Cholangiogram Panc (more content not included)... [facility] Comment on above: Result Comment: Elec tronically Signed By: NIKOLAI HENRY, Po Moore\Date and Time Signed: 09/26/22 13:27 EDT 09-26-2022 Evaluation + Plan note Diagnostic Tests PendingC w/ Auto Diff 09/26/22Basic Metabolic Panel 09/26/22Hepatic Function Panel 09/26/22Lipase Level 09/26/22 [facility] [place] Evaluation note Diagnosis Weight gain- Primary Other symptoms concerning nutrition, metabolism, and development Vitamin D deficiency Encounter for dietary consultation Class 3 severe obesity due to excess calories without serious comorbidity with body mass index (BMI) of 40.0 to 44.9 in adult documented in this encounter [facility] note* Diagnosis Encounter for gynecological examination (general) (routine) with abnormal findings- Primary Candidiasis of vulva Candidiasis of vulva and vagina Vulvar itching Screening for malignant neoplasm of cervix Screening for malignant neoplasm of the cervix Encounter for screening for human papillomavirus (HPV) documented in this encounter [facility]* Diagnosis Weight gain- Primary Other symptoms concerning nutrition, metabolism, and development Vitamin D deficiency Encounter for dietary consultation Class 3 severe obesity due to excess calories without serious comorbidity with body mass index (BMI) of 40.0 to 44.9 in adult ([facility]) documented in this encounter [facility] Healthcare[facility] course Narrative No data available for this section [facility] [place] [facility] Discharge instructions No data available for this section [facility] [place] Progress note No data available for this section [facility] Summary Purpose Family History No Family History Records FoundNo Family History Records FoundNo Family History Records FoundNo Family History Records Found Advance Directives No Advanced Directives Records FoundNo Advanced Directives Records FoundNo Advanced Directives Records FoundNo Advanced Directives Records Found Additional Source Comments Patient Care team informatio n (unrecognized section and content) Regional Merchandising Manager Relationship Specialty Start Date End Date Nguyen Zamorano MD [address] [place] [address] PCP - General Family Medicine 10/20/22 Regional Merchandising Manager Relationship Specialty Start Date End Date Nguyen Zamorano MD [address] [place] [address] PCP - General Family Medicine 10/20/22 Regional Merchandising Manager Relationship Specialty Start Date End Date Nguyen Zamorano MD [address] [place] [address] PCP - General Family Medicine 11/09/24 Barbie Dang DO [address] [phone] Referring Physician Obstetrics and Gynecology 11/09/24 Regional Merchandising Manager Relationship Specialty Start Date End Date Nguyen Zamorano MD [address] [place] [address] PCP - General Family Medicine 11/09/24 Barbie Dang DO [address] [place] [phone] Referring Physician Obstetrics and Gynecology 11/09/24 Regional Merchandising Manager Relationship Specialty Start Date End Date Nguyen Zamorano MD [address] [place] [address] PCP - General Family Medicine 11/09/24 Barbie Dang DO [address] [address] Referring Physician Obstetrics and Gynecology 11/09/24 INFORMATION SOURCE (unrecogn ized section and content) DATE CREATED AUTHOR 11/08/2022 Tammi beal DATE CREATED AUTHOR AUTHOR'S ORGANIZ ATION 12/01/2022 [facility] DATE CREATED AUTHOR AUTHOR'S ORGANIZ ATION 07/11/2024 [facility] DATE CREATED AUTHOR AUTHOR'S ORGANIZ ATION 01/28/2025 [facility] Reason for Visit (unrecogniz ed section and content) Reason Comments HORMONES NEW NO REFERRAL LABS ON PHONE Reason Comments Gynecologic Exam Patient here for a y early. Denies problems. Patient having periods every month lasting 5 days with normal bleeding and no cramping LMP 10/09/24 Never been sexually active. Reason Comments Thyroid Problem Follow-up LAB FOR RECORDS PERTAINING TO PATIENTS WHO ARE [...] BE BASED ON THE PRIMARY CLINICAL RECORDS. [employer] provides no warranty or guarantee of the accuracy or completeness of information in this document.
[2025-02-24 08:18] LABS: Alanine Aminotransferase 60 U/L (14-59); Albumin Globulin Ratio 1.0; Albumin Level 3.5 g/dL (3.4-5.0); Alkaline Phosphatase 80 U/L (46-116); Anion Gap 11.5; Aspartate Amino Transferase 25 U/L (15-37); Blood Urea Nitrogen 11.0 mg/dL (7.0-18.0); Calcium 8.7 mg/dL (8.5-10.1); Carbon Dioxide 25.5 mmol/L (21.0-32.0); Chloride 108 mmol/L (98-107); Estimated GFR (African America >60 (>=60 mL/min/1.73m^2); Estimated GFR (Non-African Ame >60 (>=60 mL/min/1.73m^2); Globulin 3.6 g/dL; Glucose 97 mg/dL (74-106); Potassium 4.0 mmol/L (3.5-5.1); Sodium 141 mmol/L (136-145); Total Protein 7.1 g/dL (6.4-8.2)
== END 2025-02-24 07:26 | disposition home or self-care (01) ==
LOC: LAB 07:27
PROVIDERS: PCP Family Medicine; Visit Provider Internal Medicine Rheumatology
DX: R74.8 Abnormal levels of other serum enzymes (principal)
CPT/HCPCS: 36415; 80053

== ENCOUNTER 2025-04-05 12:26 | Outpatient (OUT) | payer OTHER, SELFPAY ==
--- OUTSIDE RECORDS SUMMARY | 2025-01-11 08:30 | XMS_ITS ---
Author Organization The [facility] in [place] Address [address] [place] [address] Care Team Providers Care Inbound Customer Service Agent Name Role Phone Constantine Zamorano Primary Care Provider [phone] Esau Fu Unavailable [phone] REASON FOR VISIT -2 Month Follow Up- Encounters Encounter Location Date Provider Diagnosis [facility] Rheumatology [address] [place] [address] 01/11/2025 Esau Fu Plan Of Treatment Next Appt Details Provider Name:Bhavin Mora, 1 07/05/2024 08:30:00 AM, [address], [address], [place], [address], Progress Notes * Jose MOROCHOShiraOB:1990 (34 yo F)Acc No.[id number]:01/11/2025 UNLOCKED PROGRESS NOTE Follow Up Patient: Cory BEATTY :Robin Fu DODOB:1990???Age:34 Y ???Sex:FemaleDate:01/11/2025Phone:[phone]:[address] [place] [address]Qns:Constantine Zamorano Subjective: * Chief Complaints: * 1 . -2 Month Follow Up-. * Medical History: Objective: * Vitals: Assessment: Plan: * Treatment: * * Electronic signature of Esau Fu DO, [id number] on 04/05/2025 at 12:29 PM ESTSign off status: PendingVisit Status:?R/S (Rescheduled) * Provider: Nichole Fu, Date: 0 01/11/2025 Generated for Printing/Faxing/eTransmitting on:?04/05/2025 12:29 PM EST
--- OUTSIDE RECORDS SUMMARY | 2025-03-22 06:00 | XMS_ITS | Encounter Summary ---
Author Organization [facility] Address [address] [facility] [place] [address] Care Team Providers Care Supervisor Microbiology Technologists Name Role Phone Bryan Zamorano MD Primary Care Provider [phone] Barbie Dang DO Unavailable [phone] Reason for Visit * Rehabilitation - Outpatient (Routine) - AuthorizedSpecialtyDiagnoses / ProceduresReferred By ContactReferred To ContactPhysical Therapy Diagnoses Dizziness and giddiness Procedures [place] PHYSICAL THERAPY EVALUATION LOW COMPLEX 20 MINS Bryan Zamorano MD [address] [place] [address] Phone: tel: fax: Yahir Patterson, PT [address] [facility] [address] [place] [address] Phone: tel: fax: Referral IDStatusReasonStart DateExpiration DateVisits RequestedVisits [id number] Consult and Treat 51 Encounter Details DateTypeDepartmentCare Team (Latest Contact Info)Cjjmpcgmlqq45/22/2025 7:00 AM EDTEvaluation [facility]IOR [facility] [address] [facility] [address] [place] [address] Yahir Patterson, PT [address] [facility] [address] [place] [address] Cervicalgia (Primary Dx); Intractable migraine without status migrainosus, unspecified migraine type; Balance disorder Social History Tobacco UseTypesPacks/DayYears UsedDateSmoking Tobacco: NeverSmokeless Tobacco: NeverAlcohol UseStandard Drinks/WeekCommentsNever0 (1 standard drink = 0.6 oz pure alcohol)CommentsNoSex and Gender InformationValueDate RecordedSex Assigned at BirthNot on fileLegal KouWpakvl29/15/2023 6:53 PM EDTGender Identity Not on fileSexual OrientationNot on filedocumented as of this encounter Progress Notes * Yahir Patterson, PT - 03/22/2025 7:00 AM EDT Cory Leiva [id number] 03/21/25 Subjective: Phone consult 03/21 34 yof sent to PT by Dr Zamorano for dizziness Onset 2-3 wks ago Comes on quick looking down/up Inner ear pain worst R but ingris Worst in am Neck pain and headaches Hx of migraine headaches Past wknd migraines have been floaters in R eye Sensitivity to light When it happens recovers in dark room Cold sensation ie icepack on head helps with dizziness and headaches Tingling and numbness in hands/feet for long time Getting treated for autoimmune syndrome per pt They thought lupus but tests negative Denies brain scan/vestibular battery Dr Zamorano ordered MRI of brain Migraine meds tylenol but not taking preventative migraine med Objective/Examination: Vision/Ocular: Head alignment: Negative head tilt Ocular alignment-Strabismus observation: Negative misalignment noticed (Exo, Eso, Hyper & Hypo tropia/phoria) Pupil Size/shape: Negative asymmetry noticed Double Vision: Denies Binocular & Monocular double vision Visual Field: Pass, Performed Monocularly and able to see at least shoulder width & chin to eyebrow length Static Visual Acuity (Snellen 20' distance): 20/20 Cover Tropia/Uncover Phoria test: Negative Saccades: Pass Smooth Pursuit: Pass Gaze evoked nystagmus: Negative Postional Testing: Negative BPPV testing: Negative Postural Hypotension head fixed lay down sit up testing: Negative BP was not tested Head Impulse Test: Negative) *Cervical Motion: Impaired motion and discomfort/pain *Cervical Massage vibration test with goggles: reproduced familiar dizziness, nystagmus, loss of balance Vertebral Artery Screening test (VAST): negative *Cervical Proprioception Testing: Poor head neck awareness *Cervical Muscle Strength: Deep Neck Flexor Weakness, Fail standardized endurance test Fukuda test: negative Ocular assessment with goggles: Negative spontaneous nystagmus, gaze evoked nystagmus High Frequency Head shake (2 Hz) with video goggles: Negative Therapeutic Intervention: Evaluation Gentle rom neck/arms Postural balance Heat neck and aerobics Written HEP See flow sheet Assessment: Suspected Therapy Diagnosis: Cervical Mediated Dizziness and suspect migraine associated dizziness Problems: Dizziness with massage vibration neck, Neck pain and poor motion, Motion Sensitivity dizziness, Impaired balance fail tests 4 & 6, soto medium fall risk Goals: Eliminate dizziness massage vibration neck, restore neck motion, restore motion sensitivity, restore balance and pass sop tests and soto low fall risk Plan: Cervical manual therapy, vestibular rehabilitation, vision therapy, aerobics/heat Frequency/Duration: Once every other week Potential: Good I hereby deem this POC medically necessary. Please sign below. Yahir Patterson, DScPT, OCS, COMT, AIB-VAM Director Vestibular Rehabilitation documented in this encounter Plan of Treatment DateTypeDepartmentCare Team (Latest Contact Info)Dewsvnsffra62/12/2025 8:00 AM ESTTreatment [facility] [address] [place] [address] Yahir Patterson, PT [address] [place] [address] 05/03/2025 10:30 AM ESTOffice Visit [facility] [address] [place] [address] Barby Arzate MD [address] [place] [address] 11/15/2025 9:30 AM EDTOffice Visit JUNIOR [facility] [address] [phone] Barbie Dang DO [address] [address] documented as of this encounter Visit Diagnoses Diagnosis Cervicalgia- Primary Intractable migraine without status migrainosus, unspecified migraine type Balance disorder documented in this encounter Care Teams Team MemberRelationshipSpecialtyStart DateEnd Date Bryan Zamorano MD [address] [place] [phone] PCP - GeneralFamily Medicine11/09/24 Barbie Dang DO [address] [address] Referring PhysicianObstetrics and Gynecology11/09/24documented as of this encounter
--- OUTSIDE RECORDS SUMMARY | 2025-03-29 06:00 | XMS_ITS | Encounter Summary ---
Author Organization [facility] Address [address] [facility] [place] [address] Care Team Providers Care Cloth Grader Supervisor Name Role Phone Bryan Zamorano MD Primary Care Provider [phone] Barbie Dang DO Unavailable [phone] Reason for Visit * Rehabilitation - Outpatient (Routine) - AuthorizedSpecialtyDiagnoses / ProceduresReferred By ContactReferred To ContactPhysical Therapy Diagnoses Dizziness and giddiness Procedures [place] PHYSICAL THERAPY EVALUATION LOW COMPLEX 20 MINS Bryan Zamorano MD [address] [place] [address] Phone: tel: fax: Yahir Patterson, PT [address] [facility] [address] [place] [address] Phone: tel: fax: Referral IDStatusReasonStart DateExpiration DateVisits RequestedVisits [id number] Consult and Treat Encounter Details DateTypeDepartmentCare Team (Latest Contact Info)Yteteoreglz93/29/2025 7:00 AM EDTTreatment [facility] [address] [facility] [address] [place] [phone] Yahir Patterson, PT [address] [facility] [address] [place] [address] Cervicalgia (Primary Dx); Balance disorder Social History Tobacco UseTypesPacks/DayYears UsedDateSmoking Tobacco: NeverSmokeless Tobacco: NeverAlcohol UseStandard Drinks/WeekCommentsNever0 (1 standard drink = 0.6 oz pure alcohol)CommentsNoSex and Gender InformationValueDate RecordedSex Assigned at BirthNot on fileLegal EpeZmbggz21/15/2023 6:53 PM EDTGender Identity Not on fileSexual OrientationNot on filedocumented as of this encounter Progress Notes * Yahir Patterson, PT - 03/29/2025 7:00 AM EDT Images from the original note were not included. Cory Leiva [id number] 03/28/25 Subjective: Phone consult 03/21 34 yof sent [...] tylenol but not taking preventative migraine med 2nd Two migraines since last session Taking Mg at night (Issue migraine material next session) Objective/Examination: Vision/Ocular: Head alignment: Negative head tilt [...] Hz) with video goggles: Negative Therapeutic Intervention: reEvaluation Gentle rom neck/arms Postural balance Heat neck and aerobics Manual therapy Written HEP See flow sheet 40 Assessment: Suspected Therapy Diagnosis: Cervical Mediated Dizziness [...] Plan of Treatment DateTypeDepartmentCare Team (Latest Contact Info)Dbuhqiparvv38/12/2025 8:00 AM ESTTreatment [facility] [address] [place] [address] Yahir Patterson, PT [address] [place] [address] 05/03/2025 10:30 AM ESTOffice Visit [facility] [address] [place] [address] Barby Arzate MD [address] [place] [address] 11/15/2025 9:30 AM EDTOffice Visit [facility] [address] [address] Barbie Dang DO [address] [address] documented as of this encounter Visit Diagnoses Diagnosis Cervicalgia- Primary Balance disorder documented in this encounter Care Teams Team MemberRelationshipSpecialtyStart DateEnd Date Bryan Zamorano MD [address] [place] [address] PCP - GeneralFamily Medicine11/09/24 Barbie Dang DO [address] [address] Referring PhysicianObstetrics and Gynecology11/09/24documented as of this encounter
--- OUTSIDE RECORDS SUMMARY | 2025-04-05 07:00 | XMS_ITS | Encounter Summary ---
Author Organization [facility] Address [address] [facility] [place] [address] Care Team Providers Care Metal Solderer Name Role Phone Bryan Zamorano MD Primary Care Provider [phone] Barbie Dang DO Unavailable [phone] Reason for Visit * Rehabilitation - Outpatient (Routine) - AuthorizedSpecialtyDiagnoses / ProceduresReferred By ContactReferred To ContactPhysical Therapy Diagnoses Dizziness and giddiness Procedures IN PHYSICAL THERAPY EVALUATION LOW COMPLEX 20 MINS Bryan Zamorano MD [address] [place] [address] Phone: tel: fax: Yahir Patterson, PT [address] [facility] [address] [place] [address] Phone: tel: fax: Referral IDStatusReasonStart DateExpiration DateVisits RequestedVisits [id number] Consult and Treat Encounter Details DateTypeDepartmentCare Team (Latest Contact Info)Vqiipiqlwva50/05/2025 7:00 AM ESTTreatment JUNIOR [facility] [address] [facility] [address] [place] [address] Yahir Patterson, PT [address] [facility] [address] [place] [address] Cervicalgia (Primary Dx); Intractable migraine without status migrainosus, unspecified migraine type Social History Tobacco UseTypesPacks/DayYears UsedDateSmoking Tobacco: NeverSmokeless Tobacco: NeverAlcohol UseStandard Drinks/WeekCommentsNever0 (1 standard drink = 0.6 oz pure alcohol)CommentsNoSex and Gender InformationValueDate RecordedSex Assigned at BirthNot on fileLegal ZdxEtkewn26/15/2023 6:53 PM EDTGender Identity Not on fileSexual OrientationNot on filedocumented as of this encounter Progress Notes * Yahir Patterson, PT - 04/05/2025 7:00 AM EST Images from the original note were not included. Cory Leiva [id number] 04/04/25 Subjective: Phone consult 03/21 34 yof sent [...] tylenol but not taking preventative migraine med 3rd session Better only one episode Mg at night (Issue migraine material next session if necessary) Objective/Examination: Vision/Ocular: Head alignment: Negative head tilt [...] Plan of Treatment DateTypeDepartmentCare Team (Latest Contact Info)Dyhmgyjdujv24/12/2025 8:00 AM ESTTreatment JUNIOR [facility] [address] [place] [address] Yahir Patterson, PT [address] [place] [address] 05/03/2025 10:30 AM ESTOffice Visit J[facility] [address] [place] [address] Barby Arzate MD [address] [place] [address] 11/15/2025 9:30 AM EDTOffice Visit [facility] [address] [address] Barbie Dang DO [address] [address] documented as of this encounter Visit Diagnoses Diagnosis Cervicalgia- Primary Intractable migraine without status migrainosus, unspecified migraine type documented in this encounter Care Teams Team MemberRelationshipSpecialtyStart DateEnd Date Bryan Zamorano MD [address] [place] [address] PCP - GeneralFamily Medicine11/09/24 Barbie Dang DO [address] [address] Referring PhysicianObstetrics and Gynecology11/09/24documented as of this encounter
--- NOTE | 2025-04-05 12:29 | MR_ITS ---
The [address] [address] Patient Name: FRANKLIN MOROCHO MRN: [id number] date: 1990 Sex: F Assigned Patient Location: MRI Current Patient Location: MRI Accession/Order Number: [id number] Exam Date: 04/05/2025 12:35 Report Date: 04/05/2025 15:31 At the request of: NGUYEN STARR MD Procedure: MR head/brain wo/w con MRI brain performed without with contrast INDICATION: Vertical nystagmus, diplopia, concern for multiple sclerosis COMPARISON: None No restricted diffusion. Ventricles and sulci unremarkable size and configuration for patient's age. 3 mm of cerebellar tonsillar ectopia identified. No focal white matter changes within the brain parenchyma. Major intracranial arterial vascular flow voids preserved. No abnormal GRE signal. Following contrast administration, no abnormal postcontrast enhancement identified. MR/MR head/brain wo/w con IMPRESSION: 3 mm cerebellar tonsillar ectopia. Otherwise essentially unremarkable MRI brain performed without and with contrast Impression dictated by: Joey Mark M.D. 04/05/2025 3:31 PM Dictation Location: [place] [address] Electronically authenticated by: [id number] Y Date: 04/05/2025 15:31
--- OUTSIDE RECORDS SUMMARY | 2025-04-05 12:30 | XMS_ITS | Encounter Summary ---
Author Organization [facility] Address [address] [facility] [place] [address] Care Team Providers Care Mop Handle Assembler Name Role Phone Bryan Zamorano MD Primary Care Provider [phone] Barbie Dang DO Unavailable Encounter Details DateTypeDepartmentCare Team (Latest Contact Info)Vbhqczzvtbp46/22/2025amboo flowsheet JUNIOR [facility] [address] [place] [address] Yahir Patterson, PT [address] [facility] [address] [place] [address] Social History Tobacco UseTypesPacks/DayYears UsedDateSmoking Tobacco: NeverSmokeless Tobacco: NeverAlcohol UseStandard Drinks/WeekCommentsNever0 (1 standard drink = 0.6 oz pure alcohol)CommentsNoSex and Gender InformationValueDate RecordedSex Assigned at BirthNot on fileLegal AqwAfyvwm62/15/2023 6:53 PM EDTGender Identity Not on fileSexual OrientationNot on filedocumented as of this encounter Plan of Treatment DateTypeDepartmentCare Team (Latest Contact Info)Lwhgfbjyomo99/12/2025 8:00 AM ESTTreatment JUNIOR [facility] [address] [place] [address] Yahir Patterson, PT [address] [facility] [address] [place] [address] 05/03/2025 10:30 AM ESTOffice Visit [facility] [place] [facility] [address] [place] [address] Barby Arzate MD [address] [place] [address] 11/15/2025 9:30 AM EDTOffice Visit [facility] [address] [place] [address] Medical [address] [phone] Barbie Dang DO [address] [address] documented as of this encounter Visit Diagnoses Not on filedocumented in this encounter Care Teams Team MemberRelationshipSpecialtyStart DateEnd Date Bryan Zaomrano MD [address] [place] [address] PCP - GeneralFamily Medicine11/09/24 Barbie Dang DO [address] [phone] Referring PhysicianObstetrics and Gynecology11/09/24documented as of this encounter
--- OUTSIDE RECORDS SUMMARY | 2025-04-05 12:30 | XMS_ITS | Encounter Summary ---
Author Organization [facility] Address [address] [facility] [place] [address] Care Team Providers Care Cleaning Technician Name Role Phone Bryan Zamorano MD Primary Care Provider [phone] Barbie Dang DO Unavailable Encounter Details DateTypeDepartmentCare Team (Latest Contact Info)Tuecjrzgeys01/05/2025amboo flowsheet JUNIOR [facility] [address] [place] [address] Yahir Patterson, PT [address] [facility] [address] [place] [address] Social History Tobacco UseTypesPacks/DayYears UsedDateSmoking Tobacco: NeverSmokeless Tobacco: NeverAlcohol UseStandard Drinks/WeekCommentsNever0 (1 standard drink = 0.6 oz pure alcohol)CommentsNoSex and Gender InformationValueDate RecordedSex Assigned at BirthNot on fileLegal WtqJyxjcq77/15/2023 6:53 PM EDTGender Identity Not on fileSexual OrientationNot on filedocumented as of this encounter Plan of Treatment DateTypeDepartmentCare Team (Latest Contact Info)Kgbssnksjux60/12/2025 8:00 AM ESTTreatment JUNIOR [facility] [address] [place] [address] Yahir Patterson, PT [address] [facility] [address] [place] [address] 05/03/2025 10:30 AM ESTOffice Visit [facility] [place] [facility] [address] [place] [address] Barby Arzate MD [address] [place] [address] 11/15/2025 9:30 AM EDTOffice Visit [facility] [address] [place] D Medical [address] [phone] Barbie Dang DO [address] [address] documented as of this encounter Visit Diagnoses Not on filedocumented in this encounter Care Teams Team MemberRelationshipSpecialtyStart DateEnd Date Bryan Zamorano MD [address] [place] [address] PCP - GeneralFamily Medicine11/09/24 Baribe Dang DO [address] [phone] Referring PhysicianObstetrics and Gynecology11/09/24documented as of this encounter
--- OUTSIDE RECORDS SUMMARY | 2025-04-05 12:30 | XMS_ITS | Encounter Summary ---
Author Organization [facility] Address [address] [facility] [place] [address] Care Team Providers Care Photocopier Technician Name Role Phone Bryan Zamorano MD Primary Care Provider [phone] Barbie Dang DO Unavailable [phone] Encounter Details DateTypeDepartmentCare Team (Latest Contact Info)Vkwwxgjnzad30/29/2025Travel Social History Tobacco UseTypesPacks/DayYears UsedDateSmoking Tobacco: NeverSmokeless Tobacco: NeverAlcohol UseStandard Drinks/WeekCommentsNever0 (1 standard drink = 0.6 oz pure alcohol)CommentsNoSex and Gender InformationValueDate RecordedSex Assigned at BirthNot on fileLegal BojVbfgzl35/15/2023 6:53 PM EDTGender Identity Not on fileSexual OrientationNot on filedocumented as of this encounter Plan of Treatment DateTypeDepartmentCare Team (Latest Contact Info)Tqmkvngqndr15/12/2025 8:00 AM ESTTreatment JUNIOR [facility] [address] [place] [address] Yahir Patterson, PT [address] [place] [address] 05/03/2025 10:30 AM ESTOffice Visit [facility] [address] [place] [address] Barby Arzate MD [address] [place] [address] 11/15/2025 9:30 AM EDTOffice Visit [facility] [address] [phone] Barbie Dang DO [address] [address] documented as of this encounter Visit Diagnoses Not on filedocumented in this encounter Care Teams Team MemberRelationshipSpecialtyStart DateEnd Date Bryan Zamorano MD [address] [place] [address] PCP - GeneralFamily Medicine11/09/24 Barbie Dang DO [address] [phone] Referring PhysicianObstetrics and Gynecology11/09/24documented as of this encounter
--- OUTSIDE RECORDS SUMMARY | 2025-04-05 12:30 | XMS_ITS | Encounter Summary ---
Author Organization [facility] Address [address] [facility] [place] [address] Care Team Providers Care Bureau Director Name Role Phone Bryan Zamorano MD Primary Care Provider [phone] Barbie Dang DO Unavailable [phone] Encounter Details DateTypeDepartmentCare Team (Latest Contact Info)Xdttgztsjwu72/22/2025Travel Social History Tobacco UseTypesPacks/DayYears UsedDateSmoking Tobacco: NeverSmokeless Tobacco: NeverAlcohol UseStandard Drinks/WeekCommentsNever0 (1 standard drink = 0.6 oz pure alcohol)CommentsNoSex and Gender InformationValueDate RecordedSex Assigned at BirthNot on fileLegal JcdYaupgd05/15/2023 6:53 PM EDTGender Identity Not on fileSexual OrientationNot on filedocumented as of this encounter Plan of Treatment DateTypeDepartmentCare Team (Latest Contact Info)Hjiahnswaxh99/12/2025 8:00 AM ESTTreatment JUNIOR [facility] [address] [place] [address] Yahir Patterson, PT [address] [place] [address] 05/03/2025 10:30 AM ESTOffice Visit [facility] [address] [place] [address] Barby Arzate MD [address] [place] [address] 11/15/2025 9:30 AM EDTOffice Visit [facility] [address] [phone] Barbie Dang DO [address] [address] documented as of this encounter Visit Diagnoses Not on filedocumented in this encounter Care Teams Team MemberRelationshipSpecialtyStart DateEnd Date Bryan Zamorano MD [address] [place] [address] PCP - GeneralFamily Medicine11/09/24 Barbie Dang DO [address] [phone] Referring PhysicianObstetrics and Gynecology11/09/24documented as of this encounter
--- OUTSIDE RECORDS SUMMARY | 2025-04-05 12:30 | XMS_ITS | Encounter Summary ---
Author Organization [facility] Address [address] [facility] [place] [address] Care Team Providers Care Outpatient Physical Therapist Name Role Phone Bryan Zamorano MD Primary Care Provider [phone] Barbie Dang DO Unavailable Encounter Details DateTypeDepartmentCare Team (Latest Contact Info)Htzzrtmkeff40/29/2025amboo flowsheet JUNIOR [facility] [address] [place] [address] Yahir Patterson, PT [address] [facility] [address] [place] [address] Social History Tobacco UseTypesPacks/DayYears UsedDateSmoking Tobacco: NeverSmokeless Tobacco: NeverAlcohol UseStandard Drinks/WeekCommentsNever0 (1 standard drink = 0.6 oz pure alcohol)CommentsNoSex and Gender InformationValueDate RecordedSex Assigned at BirthNot on fileLegal HjoFygkkr05/15/2023 6:53 PM EDTGender Identity Not on fileSexual OrientationNot on filedocumented as of this encounter Plan of Treatment DateTypeDepartmentCare Team (Latest Contact Info)Kxcrivhklho62/12/2025 8:00 AM ESTTreatment JUNIOR [facility] [address] [place] [address] Yahir Patterson, PT [address] [facility] [address] [place] [address] 05/03/2025 10:30 AM ESTOffice Visit [facility] [place] [facility] [address] [place] [address] Barby Arzate MD [address] [place] [address] 11/15/2025 9:30 AM EDTOffice Visit [facility] [place] [facility] [address] [place] D Medical [address] [phone] Barbie Dang DO [address] [address] documented as of this encounter Visit Diagnoses Not on filedocumented in this encounter Care Teams Team MemberRelationshipSpecialtyStart DateEnd Date Bryan Zamorano MD [address] [place] [address] PCP - GeneralFamily Medicine11/09/24 Barbie Dang DO [address] [phone] Referring PhysicianObstetrics and Gynecology11/09/24documented as of this encounter
--- OUTSIDE RECORDS SUMMARY | 2025-04-05 12:30 | XMS_ITS | Patient Health Record ---
Author Organization [facility] in [place] Address [address] [place] [address] Care Team Providers Care Material Flow Engineer Name Role Phone Constantine Zamorano Primary Care Provider Provider, Radiology Unavailable [phone] Lloyd Newell Unavailable [phone] Allergies Allergen (clinical drug ingredient) Drug/Non Drug Allergy documented on EMR Reaction Allergy Type Onset Date Status hydroxychloroquine Hydroxychloroquine hives Drug Rosendo rgy ActiveprednisonepredniSONEUnknownDrug AllergyActiveciprofloxacinCiprofloxacin nausea and vomitingDrug AllergyActive Results Component Value Reference Range Notes TPMT ACTIVITY (THIOPURINE-ME THYLTRANSFERASE) Reviewed date:10/13/2024 08:12:59 AM Interpretation: Performing Lab:[facility], [facility],[address] [facility] Petrona Hua MD,PhD,RADHA Notes/Report: FASTING:UNKNOWN FASTING: UNKNOWN TPMT ACTIVITY 15 It has not been cleared or approved by the FDA. This assay used for clinical purposes. Reference Range for TPMT Activity: has been validated pursuant to the CLIA regulations and is This test was developed and its analytical performance >12 Normal <4 Homozygote Deficient Range characteristics have been determined by [facility]. 4-12 Heterozygote or low metabolizer SED RATE and CRP Reviewed date:10/09/2024 04:44:28 PM Interpretation: Performing Lab:[facility], [address] [place], [address] Notes/Report: FACILITY: [facility] [id number] RATE WEST.6(0 - 25) MM/HRCRP EXTENDED RANGE1.49(0.00 - 5.00) MG/LC3 and C4 Reviewed date:10/09/2024 04:44:28 PM Interpretation: Performing Lab:[facility], [address] [place], [address] Notes/Report: FACILITY: [facility] [id number] 3165(88 - 165) MG/REAL 439(14 - 44) MG/DLMTX PANEL (CBC, ALB,ALT, AST, ALK ,CREA w/GFR CKD-EPI)) Reviewed date:10/09/2024 04:44:28 PM Interpretation: Performing Lab:[facility], [address] [place], [place], [id number] Notes/Report: FACILITY: [facility] [id number](3.80 - 10.60) x10^7axNMPLVUFBVK93.9(12.0 - 16.0) G/DLHEMATOCRIT 37.4(37.0 - 47.0) %MCH27.8(27.0 - 33.0) WZLZJD17.8(30.0 - 37.0) G/DLALBUMIN4.4 (3.5 - 5.0) G/DLALT (SGPT)102(1 - 35) U/LAST (SGOT)45(15 - 46) U/LALK PHOS63(38 - 126) U/LCREATININE, BLOOD0.66(0.52 - 1.04) MG/DLGFR by CKD-DRV862.5(60.0) ML/M1.7RBC4.28(4.20 - 5.40) x10^6poGVD35.4(81.0 - 99.0) ssRMA940(130 - 400) x10^3ulSED RATE and CRP Reviewed date:11/13/2024 02:32:00 PM Interpretation: Performing Lab:[facility], [address] [place], [address] Notes/Report: FACILITY: [facility] [id number] RATE WEST.13(0 - 25) MM/HRCRP EXTENDED RANGE2.14(0.00 - 5.00) MG/L MTX PANEL (CBC, ALB,ALT, AST, ALK ,CREA w/GFR CKD-EPI)) Reviewed date:11/15/2024 04:10:03 PM Interpretation: Performing Lab:[facility], [address] [place], [address] Notes/Report: FACILITY: [facility] [id number](3.80 - 10.60) x10^1bsHHSGMCYJFG91.4(12.0 - 16.0) G/DLHEMATOCRIT 34.8(37.0 - 47.0) %MCH28.9(27.0 - 33.0) QFNCEB19.8(30.0 - 37.0) G/DLALBUMIN4.5 (3.5 - 5.0) G/DLALT (SGPT)75(1 - 35) U/LAST (SGOT)43(15 - 46) U/LALK PHOS65(38 - 126) U/LCREATININE, BLOOD0.78(0.52 - 1.04) MG/DLGFR by CKD-HEA969.8(60.0) ML/M1.7RBC3.95(4.20 - 5.40) x10^8pbQYS50.1(81.0 - 99.0) svVUX906(130 - 400) x10^3ulPROF 14(COMP METB) Reviewed date:12/14/2024 05:17:22 PM Interpretation: Performing Lab: Notes/Report: [facility] ,Nmqyci358318-565 mmol/LPotassium4.13.5-5.1 mmol/SXxnhrqha72265-792 mmol/LCarbon Jofjuoc92.621.0-32.0 mmol/LAnion Gap13.8Cwbmkud24377-819 mg/dLBlood Urea Ctqtuflc08.07.0-18.0 mg/dLCreatinine0.660.55-1.02 mg/dLEstimated GFR ( Bere>60>=60 mL/min/1.73m 2Estimated GFR (Non- Mirna>60>=60 mL/min/1.73m 2BUN Creatinine Ratio19.2Iiznkjq5.68.5-10.1 mg/dLBilirubin Total0.40.2-1.0 mg/dL Aspartate Amino Ptjmrqdmram0507-04 U/LAlanine Ysnaivyfauvozlii1106-33 U/L Alkaline Kebzqcablps2191-307 U/LTotal Protein6.86.4-8.2 g/dLAlbumin Level3.53.4- 5.0 g/dLGlobulin3.3Albumin Globulin Ratio1.1Performing Lab:see noteML - [facility] LBSED RATE and CRP Reviewed date:01/26/2025 12:03:31 PM Interpretation: Performing Lab:[facility], [address] [place], [address] Notes/Report: 1C 1L FACILITY: [facility] [id number] RATE WEST.3(0 - 25) MM/HRCRP EXTENDED RANGE1.52(0.00 - 5.00) MG/LC3 and C4 Reviewed date:01/26/2025 12:03:31 PM Interpretation: Performing Lab:[facility], [address] [place], [address] Notes/Report: 1C 1L FACILITY: [facility] [id number] 3143(88 - 165) MG/REAL 435(14 - 44) MG/DLCMP (COMP MET CESPEDES) w/eGFR CKD-EPI Reviewed date:01/26/2025 12:03:31 PM Interpretation: Performing Lab:[facility], [address] [place], [address] Notes/Report: 1C 1L FACILITY: [facility] [id number](74 - 106) MG/DLBUN8(4 - 25) MG/DLCREATININE, BLOOD0.66(0.52 - 1.04) MG/DLGFR by CKD-XFE151.7(60.0) ML/M1.4EGHJEC574(135 - 145) MMOL/LPOTASSIUM 4.3(3.5 - 5.1) MMOL/URBBPVEYQ402(98 - 110) MMOL/LCARBON BLQTFFD88(22 - 30) MMOL/LCALCIUM9.2(8.6 - 10.6) MG/DLALBUMIN4.4(3.5 - 5.0) G/DLTOTAL PROTEIN7.2(6.3 - 8.2) G/DLALK PHOS76(38 - 126) U/LALT (SGPT)100(1 - 35) U/LAST (SGOT)69(15 - 46) U/LBILIRUBIN, TOT0.7(0.2 - 1.3) MG/DLCBC WITH DIFF Reviewed date:01/26/2025 12:03:31 PM Interpretation: Performing Lab:[facility], [address], [place], [address] Notes/Report: 1C 1L FACILITY: [facility] [id number](3.80 - 10.60) x10^1cqYYO2.41(4.20 - 5.40) x10^3raRFJMHOWFNQ72.9 (12.0 - 16.0) G/VXLLAJVAMBLC40.1(37.0 - 47.0) %MCV88.7(81.0 - 99.0) flMCH29.3 (27.0 - 33.0) AKQSUR87.0(30.0 - 37.0) G/DLRDW-SD49.1(37.0 - 49.0) aqFHP396(130 - 400) x10^3ulNEUTROPHIL CT2.96(1.50 - 7.00) x10^3ulLYMPHOCYTE CT1.61(0.96 - 5.40) x10^3ulMONOCYTE CT0.41(0.10 - 0.90) x10^3ulEOSINOPHIL CT0.03(0.00 - 0.40) x10^3ulBASOPHIL CT0.01(0.00 - 0.16) x10^3ulIMMATURE GRAN CT0.01(0.00 - 0.11) x10^7phUZRS99.8() %LYMPS32.0() %MONOS8.2() %EOSINOPHIL0.6() %BASOS0.2() % IMMATURE GRANS (IG)0.2() %GAGE by IFA Reviewed date:08/11/2024 06:50:14 PM Interpretation: Performing Lab: Notes/Report: [facility] ,Antinuclear Antibodies, IFAPositive. Borderline 1:80 Negative <1:80 Positive >1:80 Homogeneous PatternTNP.Nucleolar PatternTNP.Speckled Pattern1:160.ICAP nomenclature: AC-2,4,5,29Centromere PatternTNP.Spindle Apparatus PatternTNP. Nuclear Membrane PatternTNP.Midbody PatternTNP.Nuclear Dot PatternTNP.PCNA PatternTNP.Centriole PatternTNP.Note:Comment. Syndrome, Raynaud phenomenon, Pulmonary Scleroderma-diffuse, Scleroderma-Autoimmune Myositis Overlap Syndrome, Systemic Pattern Potential Disease Association Autoimmune Rheumatic Disease, Centromere Scleroderma-CREST, Limited Cutaneous SSc, Lupus, Congenital Heart Block, [address] [place] [address] [phone] Nucleolar Systemic Sclerosis, Scleroderma-Autoimmune Erythematosus, Subacute Cutaneous Lupus, Nuclear Dot Primary Biliary Cholangitis Phusralzysvdl-Djmclojdazr-Wmwvdwnrdi Linear Scleroderma, Antiphospholipid Syndrome Arthritis Cholangitis Performed at: [facility] Mixed Connective Tissue Disease, Raynaud's Phenomenon, Primary Biliary Nuclear Primary Biliary Cholangitis, Autoimmune Ground Crewman Aircraft Support: Chacho Castro PhD, Phone: [phone] Autoimmune hepatitis, Juvenile Idiopathic Rheumatic Disease, Autoimmune Cytopenias, Myositis Overlap Syndrome, Sjogren Rheumatic Disease, Cancer Homogeneous Systemic Lupus Erythematosus, Drug Induced Systemic Lupus Erythematosus, Chronic Membrane Hepatitis/Liver disease, Systemic Autoimmune Arterial Hypertension, Systemic Autoimmune Speckled Sjogren Syndrome, Systemic Lupus Myositis Overlap Syndrome, Systemic Lupus Undifferentiated Connective Tissue Disease Performing Lab:see [facility]Sam[facility]FREE T4 Reviewed date:08/10/2024 12:43:33 PM Interpretation: Performing Lab: Notes/Report: [facility] ,Free T40.910.76-1.46 ng/dLPerforming Lab:[facility] LB RHEUMATOID FACTOR Reviewed date:08/11/2024 06:50:14 PM Interpretation: Performing Lab: Notes/Report: [facility] ,Rheumatoid Factor (RF)<10.0<14.0 IU/mLPerforming Lab:see [facility]idalGood [facility] LB Antistreptolysin O Ab Reviewed date:08/11/2024 06:50:14 PM Interpretation: Performing Lab: Notes/Report: [place] ,Antistreptolysin O Ab49.50.0-200.0 IU/mL Performed at: [facility] Ground Crew[employer] Aircraft Support: Chacho Castro PhD, Phone: [phone] [address] [place], [place] [phone] Performing Lab:see noteLC - [facility] LBANA SUBTYPE (8) (dsDNA, SSA, SSB, SWANSON, DELIVERY MERCHANDISER, SCL70,JO1,CENTOMERE) Reviewed date:08/23/2024 03:48:37 PM Interpretation: Performing Lab:[facility], [address] [place], [address] Notes/Report: PERFORMED ON PHADIA EFFECTIVE 11-17-2022 FACILITY: [facility] [id number] ds DNA0.8(0.0 - 15.0) IU/MLSSA/RO52<0.3(0.0 - 10.0) U/mLSSA/RO60 <0.4(0.0 - 10.0) U/mLANTI SSB/LA<0.4(0.0 - 10.0) U/mLANTI SWANSON<0.7(0.0 - 10.0) U/mLANTI DELIVERY MERCHANDISER (U1RNP)0.9(0.0 - 10.0) U/mLANTI SCL 70<0.6(0.0 - 10.0) U/mLANTI SHERMAN-1<0.3(0.0 - 10.0) U/mLANTI CENTROMERE B<0.4(0.0 - 10.0) U/mLANA with TITER Reviewed date:08/23/2024 03:49:30 PM Interpretation: Performing Lab:[facility], [address] [place], [address] Notes/Report: FACILITY: [facility] [id number] by HEp-2 CELLSPOS(NEG - NEG)GAGE TITERMIXED(<1:40 - 1:40)1:80 GAGE PATTERN = CENTROMERE1:320 GAGE PATTERN = NUCLEOLARUS right upper quadrant Reviewed date:12/14/2024 05:17:22 PM Interpretation: Performing Lab: Notes/Report: Source Facility: [address] [address] Ultrasound Report Signed Patient: FRANKLIN LEIVA MR#: [id number] : 1990 Acct:[id number] Age/Sex: 34 / F ADM Date: 12/14/24 Loc: US Attending Dr: Nguyen Zamorano M.D. Ordering Physician: Nguyen Zamorano M.D. Date of Service: 12/14/24 Procedure(s): US right upper quadrant Accession Number(s): [id number] cc: Nguyen Zamorano M.D. [place] [address] Patient Name: FRANKLIN LEIVA MRN: [facility]:[id number] date: 1990 Sex: F Assigned Patient Location: US Current Patient Location: US Accession/Order Number: [id number] Exam Date: 12/14/2024 08:47 Report Date: 12/14/2024 08:49 At the request of: NGUYEN ZAMORANO MD Procedure: US right upper quadrant LIMITED RIGHT UPPER QUADRANT ABDOMINAL ULTRASOUND CLINICAL HISTORY: Elevated liver enzymes. Prior cholecystectomy. COMPARISON: CT 09/08/2022 and MRI 10/06/2022 The gallbladder is surgically absent. No hepatic biliary dilatation is evident. The common duct is slightly prominent measuring 6-7 mm. The liver parenchyma shows increased echogenicity suggesting fatty infiltration. No focal intrahepatic masses are seen. There is appropriate hepatopetal flow within the main portal vein. The pancreas shows no significant sonographic abnormality. Cursory evaluation of the right kidney reveals no hydronephrosis or fluid within Valadez's pouch. US/US right upper quadrant IMPRESSION: MILD COMMON DUCT PROMINENCE THAT MAY RELATE TO PREVIOUS CHOLECYSTECTOMY. FATTY LIVER. Impression dictated by: Irene Zamudio M.D. 12/14/2024 8:49 AM Dictation Location: [place] [address] Electronically authenticated by: [id number] Y Date: 12/14/2024 08:49 Dictated By: Irene Zamudio M.D. Signed By: 12/14/24 0852 DD/ 0849 TD/TT: Assistant To The President:PROF Boggs(COMP METB) Reviewed date:02/24/2025 11:31:28 AM Interpretation: Performing Lab: Notes/Report: [facility] ,Pobeia654228-885 mmol/LPotassium4.03.5-5.1 mmol/BYzmxrovb78804-143 mmol/LCarbon Pvghatq16.521.0-32.0 mmol/LAnion Gap11.4Bqxnwzj5464-248 mg/dLBlood Urea Nitrogen 11.07.0-18.0 mg/dLCreatinine0.670.55-1.02 mg/dLEstimated GFR ( Bere>60 >=60 mL/min/1.73m 2Estimated GFR (Non- Mirna>60>=60 mL/min/1.73m 2BUN Creatinine Ratio16.7Gurzulu0.78.5-10.1 mg/dLBilirubin Total0.30.2-1.0 mg/dL Aspartate Amino Djrxftjookk1993-27 U/LAlanine Iospomkpypzwoqwg2973-96 U/L Alkaline Eykjzruampc5321-940 U/LTotal Protein7.16.4-8.2 g/dLAlbumin Level3.53.4- 5.0 g/dLGlobulin3.6Albumin Globulin Ratio1.0Performing Lab:see noteML - [facility] LBURIC ACID SERUM Reviewed date:08/10/2024 12:43:33 PM Interpretation: Performing Lab: Notes/Report: [facility] ,Uric Acid4.42.6-6.0 mg/dLPerforming Lab:see noteML - [facility] LB TSH Reviewed date:08/10/2024 12:43:33 PM Interpretation: Performing Lab: Notes/Report: [facility] ,Thyroid Stimulating Hormone0.8250.358-3.740 uIU/mLPerforming Lab:see noteML - [facility] LBPROF 14(COMP METB) Reviewed date:08/10/2024 12:43:33 PM Interpretation: Performing Lab: Notes/Report: [facility] ,Cfpogs972972-842 mmol/LPotassium3.33.5-5.1 mmol/ETuwdgenz99108-410 mmol/LCarbon Acgvmsb39.721.0-32.0 mmol/LAnion Gap10.0Fwebpfs1047-962 mg/dLBlood Urea Nitrogen 12.07.0-18.0 mg/dLCreatinine0.890.55-1.02 mg/dLEstimated GFR ( Bere>60 >=60 mL/min/1.73m 2Estimated GFR (Non- Mirna>60>=60 mL/min/1.73m 2BUN Creatinine Ratio13.6Rjrarkl9.98.5-10.1 mg/dLBilirubin Total0.40.2-1.0 mg/dL Aspartate Amino Hmdwapdbwco9083-85 U/LAlanine Sddfytdjnzrtcqix1911-94 U/L Alkaline Ylycvjmzulw6780-204 U/LTotal Protein7.46.4-8.2 g/dLAlbumin Level3.73.4- 5.0 g/dLGlobulin3.7Albumin Globulin Ratio1.0Performing Lab:see noteML - [facility] LBCRP Reviewed date:08/10/2024 12:43:33 PM Interpretation: Performing Lab: Notes/Report: [facility] ,C Reactive Protein<0.50<=0.50 mg/dLPerforming Lab:see noteML - [facility] LBCA echo doppler complete Reviewed date:06/13/2024 07:59:36 PM Interpretation: Performing Lab: Notes/Report: Source Facility: [place] [address] Cardiology Report Signed Patient: FRANKLIN LEIVA MR#: [id number] : 1990 Acct:[id number] Age/Sex: 33 / F ADM Date: 06/09/24 Loc: CARD Attending Dr: BLAZE HUBBARD Ordering Physician: BLAZE HUBBARD Date of Service: 06/09/24 Procedure(s): CA echo doppler complete Accession Number(s): [id number] cc: TOMAS HUBBARD Douglas M.D. Patient Name: FRANKLIN LEIVA MR#: [id number] : 1990 Exam Date: 06/09/2024 Ordering Doctor: [...] Signed By: 06/13/24 1425 DD/ 1424 TD/TT: Assistant To The President:XR Chest PA and Lateral (Routine CXR) * Reviewed date:08/19/2024 07:51:25 PM Interpretation: Performing Lab: Notes/Report: [place] [address] Name: BIALEE REID : 1990 Gender: F Referring Provider: Lloyd Newell Exam: CHEST PA AND LATERAL Exam Start: 08/19/2024 Accn: [id number] INDICATION/HISTORY: R76.8 other specified abnormal immunological findings in serum PROCEDURE: Two-view chest x-ray COMPARISON: No prior comparison available. FINDINGS: Normal heart size and pulmonary vascularity. Lungs are clear and expanded. IMPRESSION: Normal chest x-ray. Transcribed by: Etelvina Arias 08/19/2024 13:37 Sincerely, Marcelo Zaldivar MD Electronically Signed: 08/19/2024 13:59 Thank you for referring FRANKLIN LEIVA to the [facility], [facility]. [facility] - [facility], [id number] WITH DIFF Reviewed date:08/23/2024 03:49:51 PM Interpretation: Performing Lab:[facility], [address] [place], [address] Notes/Report: FACILITY: [facility] [id number](3.80 - 10.60) x10^2dhSWA9.69(4.20 - 5.40) x10^5rtTTYYIWNDGZ38.9 (12.0 - 16.0) G/ZSKKHEESJUYB27.9(37.0 - 47.0) %MCV85.1(81.0 - 99.0) flMCH27.5 (27.0 - 33.0) YGPAVQ50.3(30.0 - 37.0) G/DLRDW-SD46.0(37.0 - 49.0) eqUTM737(130 - 400) x10^3ulNEUTROPHIL CT10.37(1.50 - 7.00) x10^3ulLYMPHOCYTE CT1.98(0.96 - 5.40) x10^3ulMONOCYTE CT0.81(0.10 - 0.90) x10^3ulEOSINOPHIL CT0.00(0.00 - 0.40) x10^3ulBASOPHIL CT0.03(0.00 - 0.16) x10^3ulIMMATURE GRAN CT0.11(0.00 - 0.11) x10^7msGBXW86.0() %LYMPS14.9() %MONOS6.1() %EOSINOPHIL0.0() %BASOS0.2() % IMMATURE GRANS (IG)0.8() %CMP (COMP MET CESPEDES) w/eGFR CKD-EPI Reviewed date:08/23/2024 03:49:51 PM Interpretation: Performing Lab:[facility], [address] [place], [place], [id number] Notes/Report: FACILITY: [facility] [id number](74 - 106) MG/DLBUN14(4 - 25) MG/DLCREATININE, BLOOD0.62(0.52 - 1.04) MG/DLGFR by CKD-FCS690.3(60.0) ML/M1.1EWNPVL681(137 - 145) MMOL/L POTASSIUM4.5(3.5 - 5.1) MMOL/XRXSHLVLI539(98 - 107) MMOL/LCARBON RRKDYPH09(22 - 30) MMOL/LCALCIUM9.6(8.6 - 10.6) MG/DLALBUMIN4.4(3.5 - 5.0) G/DLTOTAL PROTEIN6.9 (6.3 - 8.2) G/DLALK PHOS64(38 - 126) U/LALT (SGPT)57(1 - 35) U/LAST (SGOT)27(15 - 46) U/LBILIRUBIN, TOT0.4(0.2 - 1.3) MG/DLPROTEIN and CREATININE w RATIO (RANDOM URINE) (SPOT) Reviewed date:08/23/2024 03:49:51 PM Interpretation: Performing Lab:[facility], [address] [place], [address] Notes/Report: FACILITY: [facility] [id number], URINE5.0(0.0 - 12.0) MG/DL PROTEIN, URINE MIN DETECTION = 5.0 MG/DL PROTEIN, URINE = < 5.0 MG/DL CREAT UR.62.8(20 - 320) MG/DLURINE PROTEIN/CREAT RATIO80(21 - 161) MG/G CRTB GOLD PLUS, QUANTIFERON Reviewed date:08/22/2024 09:15:09 AM Interpretation: Performing Lab:[facility]AR[facility], [facility] [address], [id number] Ramses Valderrama Notes/Report: FASTING:UNKNOWN FASTING: UNKNOWNQUANTIFERON(R)-TB GOLD PLUS, 1 TUBENEGATIVENEGATIVE infection unlikely. Negative test result. M. tuberculosis complex NIL0.01MITOGEN-NIL4.52ID3-KVH3.01 responses from TB antigen primed CD4+ helper gamma immune response of the patient's blood sample. prevent false-negative Quantiferon readings by detecting a patient with a potential immune specimen handling. Lower than expected results with the Mitogen tube responses from TB antigen primed CD4+ helper and CD8+ educational purposes only.) M. tuberculosis-specific antigens designed to elicit https://education.BetterDoctor/faq/XUW143 The TB1 Antigen tube is coated with the (This link is being provided for informational/ The TB2 Antigen tube is coated with the cytotoxic T-lymphocytes. For additional information, please refer to The Nil tube value reflects the background interferon displayed TB and Mitogen results. suppressive condition and/or suboptimal pre-analytical T-lymphocytes. M. tuberculosis-specific antigens designed to elicit This value has been subtracted from the patient's C3 and C4 Reviewed date:08/23/2024 03:49:51 PM Interpretation: Performing Lab:[facility], [address] [place], [place], [id number] Notes/Report: FACILITY: [facility] [id number] 3143(88 - 165) MG/REAL 426(14 - 44) MG/DLSED RATE and CRP Reviewed date:08/23/2024 03:49:51 PM Interpretation: Performing Lab:[facility], [address] [place], [place], [address] Notes/Report: FACILITY: [facility] [id number] RATE WEST.8(0 - 25) MM/HRCRP EXTENDED RANGE<0.30(0.00 - 5.00) MG/L VITAMIN D, 25 LEVEL (TOTAL) Reviewed date:08/23/2024 03:49:51 PM Interpretation: Performing Lab:[facility], [address] [place], [address] Notes/Report: * * * VITAMIN D, 25 HYDROXY GENERAL GUIDELINE * * * DEFICIENCY = < OR = 20.0 NG/ML INSUFFICIENCY = 20.1 - 29.9 NG/ML SUFFICIENCY = 30.0 - 100.0 NG/ML TOXICITY = > 100.1 NG/ML [facility]ACILITY: [facility] [id number] D, 2536.9(30.0 - 100.0) NG/MLRHEUMATOID FACTOR (RHF) Reviewed date:08/23/2024 03:49:51 PM Interpretation: Performing Lab:[facility], [address] [place], [address] Notes/Report: FACILITY: [facility] [id number] FACTOR<9(0 - 12) IU/ML RF FACTOR = LESS THAN 9 IU/ML RF FACTOR MIN. DETECTION = 9 IU/ML. UA (REFLEX URINALYSIS TO CULTURE) Reviewed date:08/23/2024 03:49:51 PM Interpretation: Performing Lab:[facility], [address] [place], [address] Notes/Report: FACILITY: [facility] [id number] YEL(P YEL - L AMB)CHARACTERCLEAR(CLEAR - HAZY)SP. GRAVITY1.011 (1.001 - 1.035)PH5.0(5.0 - 9.0)ALBUMINNEG(NONE - NEG) MG/DLGLUCOSENEG(NEG) MG/DL KETONESNEG(NEG) MG/DLBILIRUBINNEG(NEG)UROBILINOGEN0.2(0.2 - <2.0) MG/DLOCCULT BLD.NEG(NEG)NITRITENEG(NEG)LEUK. ESTERASENEG(NEG)UR. WBC0-4(0 - 4) /HPFUR. RBC NONE(0 - 2) /HPFSQUAMOUS EPIOCC(NONE - OCC) /HPFBACTERIAOCC(NONE - OCC) /HPF MUCUSOCC(NONE - OCC) /HPFREFLEX CULTURE ADDEDNO()LUPUS ANTICOAGULANT Reviewed date:08/23/2024 09:58:48 AM Interpretation: Performing Lab:[facility], [place] Ramses Valderrama Notes/Report: FASTING:UNKNOWN FASTING: UNKNOWNLUPUS ANTICOAGULANTNOT DETECTED http://education.BetterDoctor/faq/IAA33e3 (This link is being provided for informational/ following test results: educational purposes only.) For more information on this test, go to: This interpretation is based on the A Lupus Anticoagulant is not detected. PTT-LA FVDNSF82< OR = 40 secDRVVT IMVADO43< OR = 45 secHLA-B27 Reviewed date:08/25/2024 08:35:38 AM Interpretation: Performing Lab:CB, [facility] [address], [place] [id number] Ramses Valderrama Notes/Report: FASTING:UNKNOWN FASTING: UNKNOWNHLA-B27 ANTIGENNEGATIVENEGATIVEHEPATITIS B SURFACE AB (HBSAB) Reviewed date:08/23/2024 03:49:51 PM Interpretation: Performing Lab:[facility], [address] [place], [address] Notes/Report: FACILITY: [facility] [id number] B SURF ABNEG(NEG - NEG)HEPATITIS B CORE AB, TOTAL Reviewed date:08/23/2024 03:49:51 PM Interpretation: Performing Lab:[facility], [address] [place], [address] Notes/Report: FACILITY: [facility] [id number] B CORE ABNEG(NEG - NEG)CK (CPK) Reviewed date:08/23/2024 03:49:51 PM Interpretation: Performing Lab:[facility], [address] [place], [address] Notes/Report: FACILITY: [facility] [id number](30 - 135) U/LANTI - CCP (CYCLIC CITRULLINATED PEPTIDE AB) Reviewed date:08/23/2024 03:49:51 PM Interpretation: Performing Lab:[facility], [address] [place], [address] Notes/Report: FACILITY: [facility] [id number] ANTIBODY4.4(0.0 - 4.9) [id number]/[id number] IGG,IGA,and IGM Reviewed date:08/25/2024 08:35:38 AM Interpretation: Performing Lab:[facility], [facility] [address] [facility], [id number] Ramses Hannah Valderrama Notes/Report: FASTING:UNKNOWN FASTING: UNKNOWNB2 GLYCOPROTEIN I (IGG)AB<2.0 drug therapy or aging. > or = 20.0 Antibody detected The [facility] immunological classification criteria for b2GPI antibodies greater than the 99th percentile; or isotype IgA, which has yet to be incorporated into The antiphospholipid antibody syndrome (APS) is a clinical-pathologic correlation that includes a < 20.0 Antibody not detected (This link is being provided for informational/ guidelines for APS suggest waiting at least 12 weeks clinical event (e.g. arterial or venous thrombosis, antiphospholipid antibodies (IgM, IgG Cardiolipin or educational purposes only.) For additional information, please refer to systemic lupus erythematosus (SLE) include testing for ----- http://education.BetterDoctor/faq/SUZ033 a lupus anticoagulant). International consensus before retesting to confirm antibody persistence. Value Interpretation APS criteria. Low level antiphospholipid antibodies morbidity) and persistent positive may sometimes be detected in the setting of infection, B2 GLYCOPROTEIN I (IGM)AB<2.0 (This link is being provided for informational/ a lupus anticoagulant). International consensus educational purposes only.) guidelines for APS suggest waiting at least 12 weeks may sometimes be detected in the setting of infection, The [facility] [employer] [employer] [facility] morbidity) and persistent positive Value Interpretation antiphospholipid antibodies (IgM, IgG Cardiolipin or clinical-pathologic correlation that includes a ----- b2GPI antibodies greater than the 99th percentile; or Clinics immunological classification criteria for clinical event (e.g. arterial or venous thrombosis, < 20.0 Antibody not detected drug therapy or aging. For additional information, please refer to isotype IgA, which has yet to be incorporated into APS criteria. Low level antiphospholipid antibodies > or = 20.0 Antibody detected before retesting to confirm antibody persistence. systemic lupus erythematosus (SLE) include testing for The antiphospholipid antibody syndrome (APS) is a http://education.BetterDoctor/faq/ESP849 B2 GLYCOPROTEIN I (IGA)AB<2.0 Value Interpretation The [facility] [employer]up[employer] [facility] may sometimes be detected in the setting of infection, (This link is being provided for informational/ < 20.0 Antibody not detected clinical-pathologic correlation that includes a isotype IgA, which has yet to be incorporated into > or = 20.0 Antibody detected clinical event (e.g. arterial or venous thrombosis, For additional information, please refer to antiphospholipid antibodies (IgM, IgG Cardiolipin or guidelines for APS suggest waiting at least 12 weeks educational purposes only.) b2GPI antibodies greater than the 99th percentile; or morbidity) and persistent positive The antiphospholipid antibody syndrome (APS) is a ----- Clinics immunological classification criteria for drug therapy or aging. systemic lupus erythematosus (SLE) include testing for before retesting to confirm antibody persistence. a lupus anticoagulant). International consensus APS criteria. Low level antiphospholipid antibodies http://education.BetterDoctor/faq/SQY001 LEXY (ANGIOTENSIN CONVERTING ENZYME) Reviewed date:08/26/2024 06:21:34 AM Interpretation: Performing Lab:[facility] [id number], [place] [facility] [id number] Ramses Valderrama Notes/Report: FASTING:UNKNOWN FASTING: UNKNOWNANTI - CARDIOLIPIN (ANTIPHOSPHOLIPID) ,IGG/IGA/IGM Reviewed date:08/23/2024 03:49:51 PM Interpretation: Performing Lab:[facility], [address] [place], [address] Notes/Report: Result between 10.0 - 40.0 U/mL is considered weak positive -recommend initially retesting the patient after 8 - 12 weeks FACILITY: [facility] and then as clinically indicated. [id number], IgG1.0(10.0 - 40.0) U/mLACA, IgA1.5(14.0 - 20.0) U/mLACA, IgM29.0 (10.0 - 40.0) U/mLPROF 14(COMP METB) Reviewed date:12/08/2024 06:21:48 PM Interpretation: Performing Lab: Notes/Report: [facility] ,Xcosxx963040-144 mmol/LPotassium4.03.5-5.1 mmol/NCpkimaxz16686-192 mmol/LCarbon Lmgaxoa21.521.0-32.0 mmol/LAnion Gap13.0Jmttcfn62372-950 mg/dLBlood Urea Pgqhlgmv40.07.0-18.0 mg/dLCreatinine0.660.55-1.02 mg/dLEstimated GFR ( Bere>60>=60 mL/min/1.73m 2Estimated GFR (Non- Mirna>60>=60 mL/min/1.73m 2BUN Creatinine Ratio19.6Lwkfpzq1.98.5-10.1 mg/dLBilirubin Total0.50.2-1.0 mg/dL Aspartate Amino Bpkrgvgulkv6912-73 U/LAlanine Kgomkkjdwgrgfzse94103-78 U/L Alkaline Zzrcapgplpw7902-718 U/LTotal Protein6.96.4-8.2 g/dLAlbumin Level3.53.4- 5.0 g/dLGlobulin3.4Albumin Globulin Ratio1.0Performing Lab:see noteML - [facility] LBCT chest high res Reviewed date:09/30/2024 12:22:21 PM Interpretation: Performing Lab: Notes/Report: Source Facility: [facility]-[address] [place] [address] [place] [address] CT Scan Report Signed Patient: FRANKLIN LEIVA MR#: [id number] : 1990 Acct:[id number] Age/Sex: 33 / F ADM Date: 09/30/24 Loc: CT Attending Dr: LLOYD NEWELL Ordering Physician: LLOYD NEWELL Date of Service: 09/30/24 Procedure(s): CT chest high res Accession Number(s): [id number] cc: Nguyen Zamorano M.D. [place] [address] Patient Name: FRANKLIN LEIVA MRN: [id number] date: 1990 Sex: F Assigned Patient Location: CT Current Patient Location: CT Accession/Order Number: [id number] Exam Date: 09/30/2024 09:37 Report Date: 09/30/2024 [...] Jr., D.O. 09/30/2024 9:39 AM Dictation Location: [place] [address] Electronically authenticated by: [id number] Y Date: 09/30/2024 09:39 Dictated By: Waldemar Blackwell M.D. Signed By: 09/30/2442 DD/ TD/TT: Assistant To The President:PROF MARGARITA Jaramillo ([facility]) Reviewed date:08/17/2024 06:08:13 PM Interpretation: Performing Lab: Notes/Report: [facility] ,Flyrez600611-565 mmol/LPotassium4.33.5-5.1 mmol/WUyiesmzu69301-695 mmol/LCarbon Iunwuhb10.021.0-32.0 mmol/LAnion Gap13.1Ylwjabk53415-923 mg/dLBlood Urea Tzdslthm01.07.0-18.0 mg/dLCreatinine0.840.55-1.02 mg/dLEstimated GFR ( Bere>60>=60 mL/min/1.73m 2Estimated GFR (Non- Mirna>60>=60 mL/min/1.73m 2BUN Creatinine Ratio15.4Unkdtar8.48.5-10.1 mg/dLPerforming Lab:see noteML - [facility] LB Reason For Referral Diagnosis 1 Lupus (M32.9) Referral Organization [facility] Referring Provider First Name Constantine Referring Provider Last Name [facility] Provider Specialty Rheumatology Referral Priority Routine Diagnosis 1 Arthralgia (M25.50) Referral Organization [facility] Referring Provider First Name Constantine Referring Provider Last Name [facility] Referring Provider [facility] Referred Organization [facility] Rheumatology Referred Provider Iam Quesada Referred Address [address] [place] [address],[facility],[place], [place],[address], Referred Provider Specialty Rheumatology Referral Priority Routine Diagnosis 1 Vertical nystagmus ( H55.09) Referral Organization [facility] Referring Provider First Name Constantine Referring Provider Last Name [facility] Referring Provider [facility] Referred Provider [facility], Physical Thera py Referred Provider Specialty Physical The rapist Referral Priority Routine Medications Medication SIG (Take, Route, Frequency, Duration) Notes Start Date End Date Status Adipex-P 37.5 MG 1 tablet before breakfast Orall y Once a day 5ActiveMagnesiumActiveProbioticActiveOmega 3ActiveMultivitamin Adult -1 tablet Orally Once a dayActiveMeclizine HCl 25 MG1 tablet as needed Orally Q 6 hours5ActiveVitamin K86946 plus KActive Immunizations Vaccine Route Administration Date Status [facility] Pfizer Single-Dose 30 mcg/0.3mL Unknown 03/23/2023 Administered Social History Tobacco Use: Social History Observation Description Date Details (start date - stop date) Never Smoker NA - NA Alcohol Screen (Audit-C) Question Answer Notes Did you have a drink containing alcohol in the p ast year? No Lxppnq5VxiwxfahjiceexClwpmkztTnfpbdk Control (Standard) Question Answer Notes Tobacco use: Nonsmoker AUDIT-C (Standard) Question Answer Notes Did you have a drink containing alcohol in the p ast year? No Brsfvz2ErzgvkthtxguoeQiyveztt Problems Problem Type SNOMED Code ICD Code Onset Dates Problem Status W/U Status Risk Notes Problem Cholelithiasis witho ut obstruction (69933295) Calculus of gallbladder without cholecystitis without obstruction (K80.20) ActiveconfirmedProblemGastritis (4998113)Other gastritis without bleeding (K29.60)ActiveconfirmedProblemDiaphragmatic hernia (76504094)Diaphragmatic hernia without obstruction or gangrene (K44.9)ActiveconfirmedProblemInflammatory polyarthropathy (975842392)Inflammatory polyarthropathy (M06.4)Activeconfirmed ProblemDisorder of connective tissue (748570211)Systemic involvement of connective tissue, unspecified (M35.9)ActiveconfirmedProblemRight upper quadrant pain (415235816)Right upper quadrant pain (R10.11)ActiveconfirmedProblem Insomnia (084510022)Insomnia (G47.00)ActiveconfirmedProblemEczema (44161440) Eczema (L30.9)ActiveconfirmedProblemArthralgia (29297390)Arthralgia (M25.50) ActiveconfirmedProblemSerous otitis media (48965938)Serous otitis media (H65.90) ActiveconfirmedProblemAcute bronchitis (40089203)Acute bronchitis (J20.9)Active confirmedProblemFatty liver (138309788)Fatty liver (K76.0)ActiveconfirmedProblem Well adult (934783624)Well adult (Z00.00)ActiveconfirmedProblemGallstones (084235152)Gallstones (K80.20)ActiveconfirmedProblemRaised antinuclear antibody (115385624)Positive GAGE (antinuclear antibody) (R76.8)ActiveconfirmedProblemLeft lower quadrant pain (997597604)Abdominal pain, LLQ (R10.32)Activeconfirmed ProblemAcute bronchiolitis (6352232)Acute bronchiolitis (J21.9)Activeconfirmed ProblemCyst of left ovary (25162617781842823)Ovarian cyst, left (N83.202)Active confirmedProblemArthralgia of temporomandibular joint (18757764)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)ActiveconfirmedProblemVertical nystagmus (085787431)Vertical nystagmus (H55.09)ActiveconfirmedProblemCOVID-19 (751028086)COVID-19 (U07.1)Active confirmed Vital Signs Heart Rate 76 /min 01/25/2025 Vmzmdjeoafn61.6 degrees Gvdypeqmuy77/20/2025Respiratory Rate18 /min11/11/2024 Blood pressure mm Hg03/20/20253388Fzsdux04 in03/20/2025lood pressure yspdawik432 mm Hg03/20/20254993Cfhzxq346.8 lbs1MI40.56 kg/m203/20/2025 Encounters Encounter Location Date Provider Diagnosis [address] [address] 03/20/2025 Constantine Hoy Acute non-recurrent sinusitis, unspecified location J01.90 ; Nasal congestion R09.81 and Vertical nystagmus H55.[address] [address] 06/20/2024 Constantine Hoy Acute otitis media, unspecified otitis media type H66.90 ; Otalgia, unspecified laterality H92.09 and Well adult Z00.[address] [address] 12/12/2024 Constantine Hoy Encounter for Medica re annual wellness exam Z00.00 and Elevated liver enzymes R74.8 [facility] Rheumatology [address] [facility] [place] [address] 08/19/2024 Lloyd Newell Other specified abnormal immunological findings in serum R76.8 ; Other fatigue R53.83 ; Shortness of breath R06.02 and Pleurodynia R07.[address] [address] 08/08/2024 Constantine Hoy Serous otitis media H65.90 [address] [place] [address] 08/15/2024 Constantine Lona Arthralgia M25.50 [facility] Rheumatology [address] [place] [address] 01/25/2025 Lloyd Gennaoui Systemic involvement of connective tissue, unspecified M35.9 ; Inflammatory polyarthropathy M06.4 ; Elevated liver enzymes R74.8 ; Other specified abnormal immunological findings in serum R76.8 and shelter (current) use of antimetabolite agent Z79.631 [facility] Rheumatology [address] [facility] [place] [place] [address] 09/09/2024 Lloyd Gennaoui Systemic involvement of connective tissue, unspecified M35.9 ; Inflammatory polyarthropathy M06.4 ; Other specified abnormal immunological findings in serum R76.8 ; Shortness of breath R06.02 and Pleurodynia R07.81 [facility] Rheumatology [address] [facility] [place] [address] 10/07/2024 Lloyd Gennaoui Systemic involvement of connective tissue, unspecified M35.9 ; Inflammatory polyarthropathy M06.4 ; Other specified abnormal immunological findings in serum R76.8 ; Shortness of breath R06.02 and Pleurodynia R07.81 [facility] Rheumatology [address] [facility] [place] [place] [address] 11/11/2024 Lloyd Gennaoui Systemic involvement of connective tissue, unspecified M35.9 ; Inflammatory polyarthropathy M06.4 ; Other specified abnormal immunological findings in serum R76.8 ; floral arranger (current) use of antimetabolite agent Z79.631 and Elevated liver enzymes R74.[address] [facility] [address] [facility] [address] [place], [place] [address] 08/19/2024 Radiology Provider Other specified abnormal immunological findings in serum R76.8 [facility] [address] [place] [address] 04/06/2024 Constantine Zamorano [facility] [place] [address] 04/07/2024rusty [facility] [facility] [place] [address]/Doug HoyBVH [facility] [facility] [address]/07/2024[facility] [place] [facility] [place] [address]/11/2024Doug HoyAcute otitis media, unspecified otitis media type H66.90[facility] [place] [facility] [place] [address]/05/2025Doug HoyLow potassium syndrome E87.6 [place] [address] [facility] [place] [address] 08/11/2024Doug HoyLupus M32.9[place]Kenn[place] [address] [place] [place] [address]/Doug HoyArthralgia M25.50 and Positive GAGE (antinuclear antibody) R76.8BKenn[place] [address] [place] [place] [address]/[facility] [address] [facility] [place] [place] [address]/George Gennaoui Inflammatory polyarthropathy M06.4[facility] [address] [facility] [address]/06/2024George Gen[facility]ouiAr[facility] [address] [facility] [place] [address] 09/19/2024George GennaouiOther specified abnormal immunological findings in serum R76.8BKenn[place] [address] [facility] [place] [address]/07/2024Doug [facility]oyAr[facility] [address] [facility] [place] [address]/George GennaouiElevated liver enzymes R74.8[place]Kenn[place] [address] [place] [address] 12/08/2024Doug HoyElevated liver enzymes R74.8 ; Gallstone (impacted) K80.20 ; Gallstones K80.20 ; Calculus of gallbladder without cholecystitis without obstruction K80.20 and Abdominal pain, LLQ R10.32[facility] [address] [place] [address]/Doug [facility] [place] [address]/Doug kourtney [facility] [place] [address] 01/02/2025Doug [facility]oyAr[facility] [address] [facility] [place] [address]/George GennaouiAbnormal levels of other serum enzymes R74.8 Assessments Encounter Date Diagnosis (ICD Code) Assessment Notes Treatment Notes Treatment Clinical Notes Section Notes 06/20/2024 Acute otitis media, unspecified otitis media type (ICD-10 - H66.90) You have been prescribed antibiotics for otitis media. Antibiotics may bother your stomach, so try taking them with a light meal (unless instructed otherwise by your pharmacist). It is important to take them until they are finished. You can use swtd-vxt-hgvwfze acetaminophen or ibuprofen if needed for pain. You have been prescribed antibiotics. You should be extra vigilant about hand washing or using hand harbor boat pilot gel. You should follow up with your Primary Care Physician or return to clinic if not improving in the next 3-5 days.08/08/2024Serous otitis media (ICD-10 - H65.90)08/15/2024rthralgia (ICD-10 - M25.50)08/19/2024 Other specified abnormal immunological findings in serum (ICD-10 - R76.8) # Positive GAGE 1: 160 speckled pattern -There is concern for lupus considering her positive GAGE and she is young Indian female. She has several nonspecific symptoms that [...] 3 unique tests and prescription drug management. 08/19/2024Other fatigue (ICD-10 - R53.83) # Positive GAGE 1: 160 speckled pattern -There is concern for lupus considering her positive GAGE and she is young Indian female. She has several nonspecific symptoms that [...] 3 unique tests and prescription drug management. 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 Goals of treatment are to decrease symptoms of joint pain, swelling and stiffnessand to minimize in/or prevent disease progression including further joint damage. 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 Goals of treatment are to decrease symptoms of joint pain, swelling and stiffnessand to minimize in/or prevent disease progression including further joint damage. 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 Goals of treatment are to decrease symptoms of joint pain, swelling and stiffnessand to minimize in/or prevent disease progression including further joint damage. 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 Goals of treatment are to decrease symptoms of joint pain, swelling and stiffnessand to minimize in/or prevent disease progression including further joint damage. 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 Goals of treatment are to decrease symptoms of joint pain, swelling and stiffnessand to minimize in/or prevent disease progression including further joint damage. 01/25/2025Systemic involvement of connective tissue, unspecified (ICD-10 - M35.9) # Inflammatory like joint pain with positive GAGE 1:320 nucleolar and centromere pattern -There is concern for underlying lupus especially being a young female. -Workup has been negative besides positive GAGE -Currently on MTX 10 mg weekly / folic acid 1 mg daily. Overall she is feeling better. Off prednisone without relapse of her symptoms. 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 Continue MTX 10 mg weekly and folic acid 1 mg daily. Monitor liver enzymes. - # Elevated liver enzymes -adjusting MTX dosing as noted above - Follow up in 3 months This is a moderately complex case with review of 3 unique tests and prescription drug management. 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 Goals of treatment are to decrease symptoms of joint pain, swelling and stiffnessand to minimize in/or prevent disease progression including further joint damage. 01/25/2025Inflammatory polyarthropathy (ICD-10 - M06.4) # Inflammatory like joint pain with positive GAGE 1:320 nucleolar and centromere pattern -There is concern for underlying lupus especially being a young female. -Workup has been negative besides positive GAGE -Currently on MTX 10 mg weekly / folic acid 1 mg daily. Overall she is feeling better. Off prednisone without relapse of her symptoms. 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 Continue MTX 10 mg weekly and folic acid 1 mg daily. Monitor liver enzymes. - # Elevated liver enzymes -adjusting MTX dosing as noted above - Follow up in 3 months This is a moderately complex case with review of 3 unique tests and prescription drug management. 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 Goals of treatment are to decrease symptoms of joint pain, swelling and stiffnessand to minimize in/or prevent disease progression including further joint damage. 12/12/2024Encounter for Medicare annual wellness exam (ICD-10 - Z00.00) 12/12/2024Elevated liver enzymes (ICD-10 - R74.8)5Acute non-recurrent sinusitis, unspecified location (ICD-10 - J01.90)Rest and drink more liquids, especially water. You may use a humidifier or vaporizer to help keep the drainage moist. Wkgj-vys-exmfibz Nasal Saline may help the stuffy and runny nose. Use Ibuprofen and or Tylenol as needed for fever, chills, body aches or pain. Children 5 years old should not be given dqfb-xeq-ilnehix cough and cold medications such as guaifenesin and dextromethorphan. If you're over age 5, you may try uzry-fim-fslhzxy cold medications such as guaifenesin and dextromethorphan, or multi-symptom cold reliever such as Dayquil to help reduce the symptoms. Antibiotics have been prescribed. You should take these until completed and follow the directions. Antibiotics can sometimescause upset stomach, and in rare cases, serious allergic reactions or serious gastrointestinal problems. If you start having severe abdominal pain, severe vomiting, or bloody diarrhea, you should be reevaluated by your physician or urgent care immediately. Follow up with your Primary Care Provider or return to clinic if symptoms do not improve within 3-5 days5Acute otitis media, unspecified otitis media type (ICD-10 - H66.90)08/10/2024Low potassium syndrome (ICD-10 - E87.6)08/11/2024Lupus (ICD-10 - M32.9)08/15/2024rthralgia (ICD-10 - M25.50)08/15/2024Positive GAGE (antinuclear antibody) (ICD-10 - R76.8)08/26/2024 Inflammatory polyarthropathy (ICD-10 - M06.4)09/19/2024Other specified abnormal immunological findings in serum (ICD-10 - R76.8)11/15/2024Elevated liver enzymes (ICD-10 - R74.8)12/08/2024Elevated liver enzymes (ICD-10 - R74.8)12/08/2024 Gallstone (impacted) (ICD-10 - K80.20)01/26/2025bnormal levels of other serum enzymes (ICD-10 - R74.8)12/08/2024Gallstones (ICD-10 - K80.20)03/20/2025Nasal congestion (ICD-10 - R09.81)03/20/2025Vertical nystagmus (ICD-10 - H55.09) 01/25/2025Elevated liver enzymes (ICD-10 - R74.8) # Inflammatory like joint pain with positive GAGE 1:320 nucleolar and centromere pattern -There is concern for underlying lupus especially being a young female. -Workup has been negative besides positive GAGE -Currently on MTX 10 mg weekly / folic acid 1 mg daily. Overall she is feeling better. Off prednisone without relapse of her symptoms. 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 Continue MTX 10 mg weekly and folic acid 1 mg daily. Monitor liver enzymes. - # Elevated liver enzymes -adjusting MTX dosing as noted above - Follow up in 3 months This is a moderately complex case with review of 3 unique tests and prescription drug management. 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 Goals of treatment are to decrease symptoms of joint pain, swelling and stiffnessand to minimize in/or prevent disease progression including further joint damage. 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 Goals of treatment are to decrease symptoms of joint pain, swelling and stiffnessand to minimize in/or prevent disease progression including further joint damage. 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 Goals of treatment are to decrease symptoms of joint pain, swelling and stiffnessand to minimize in/or prevent disease progression including further joint damage. 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 Goals of treatment are to decrease symptoms of joint pain, swelling and stiffnessand to minimize in/or prevent disease progression including further joint damage. 08/19/2024Shortness of breath (ICD-10 - R06.02) # Positive GAGE 1: 160 speckled pattern -There is concern for lupus considering her positive GAGE and she is young Indian female. She has several nonspecific symptoms that [...] 3 unique tests and prescription drug management. 06/20/2024Otalgia, unspecified laterality (ICD-10 - H92.09)06/20/2024Well adult (ICD-10 - Z00.00)08/19/2024Pleurodynia (ICD-10 - R07.81) # Positive GAGE 1: 160 speckled pattern -There is concern for lupus considering her positive GAGE and she is young Indian female. She has several nonspecific symptoms that [...] 3 unique tests and prescription drug management. 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 Goals of treatment are to decrease symptoms of joint pain, swelling and stiffnessand to minimize in/or prevent disease progression including further joint damage. 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 Goals of treatment are to decrease symptoms of joint pain, swelling and stiffnessand to minimize in/or prevent disease progression including further joint damage. 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 Goals of treatment are to decrease symptoms of joint pain, swelling and stiffnessand to minimize in/or prevent disease progression including further joint damage. 01/25/2025Other specified abnormal immunological findings in serum (ICD-10 - R76.8) # Inflammatory like joint pain with positive GAGE 1:320 nucleolar and centromere pattern -There is concern for underlying lupus especially being a young female. -Workup has been negative besides positive GAGE -Currently on MTX 10 mg weekly / folic acid 1 mg daily. Overall she is feeling better. Off prednisone without relapse of her symptoms. 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 Continue MTX 10 mg weekly and folic acid 1 mg daily. Monitor liver enzymes. - # Elevated liver enzymes -adjusting MTX dosing as noted above - Follow up in 3 months This is a moderately complex case with review of 3 unique tests and prescription drug management. 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 Goals of treatment are to decrease symptoms of joint pain, swelling and stiffnessand to minimize in/or prevent disease progression including further joint damage. 12/08/2024alculus of gallbladder without cholecystitis without obstruction (ICD-10 - K80.20)12/08/2024bdominal pain, LLQ (ICD-10 - R10.32)01/25/2025Long term (current) use of antimetabolite agent (ICD-10 - Z79.631) # Inflammatory like joint pain with positive GAGE 1:320 nucleolar and centromere pattern -There is concern for underlying lupus especially being a young female. -Workup has been negative besides positive GAGE -Currently on MTX 10 mg weekly / folic acid 1 mg daily. Overall she is feeling better. Off prednisone without relapse of her symptoms. 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 Continue MTX 10 mg weekly and folic acid 1 mg daily. Monitor liver enzymes. - # Elevated liver enzymes -adjusting MTX dosing as noted above - Follow up in 3 months This is a moderately complex case with review of 3 unique tests and prescription drug management. 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 Goals of treatment are to decrease symptoms of joint pain, swelling and stiffnessand to minimize in/or prevent disease progression including further joint damage. 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 Goals of treatment are to decrease symptoms of joint pain, swelling and stiffnessand to minimize in/or prevent disease progression including further joint damage. 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 Goals of treatment are to decrease symptoms of joint pain, swelling and stiffnessand to minimize in/or prevent disease progression including further joint damage. 09/09/2024Pleurodynia (ICD-10 - R07.81) # Inflammatory like joint pain with positive GAGE 1:320 nucleolar and centromere pattern -There is concern for undelrying lupus especially being a young female. 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 Goals of treatment are to decrease symptoms of joint pain, swelling and stiffnessand to minimize in/or prevent disease progression including further joint damage. 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 Goals of treatment are to decrease symptoms of joint pain, swelling and stiffnessand to minimize in/or prevent disease progression including further joint damage. Plan Of Treatment Pending Test Test Name Order Date CMP (COMPLETE METABOLIC PANEL) 4 HEMOGLOBIN A1C (GLYCO) 09/04/2023 IRON, TOTAL 09/04/2023 LIPID PANEL (CHOL/TRIG/HDL/LDL) 09/04/19 24 CBC WITH DIFF 09/04/2023 FLUORESCENT GAGE w TITER (ANTINUCLEAR ANT IBODIES) 08/19/2024 CT Chest w/o contrast 09/09/2024 EKG w Interp & Report - performed 2023 RHEUMATOID PANEL 06/20/2024 Insulin Level 09/04/2023 Basic Metabolic Panel (8) 08/10/2024 Treadmill Stress Test with Nuclear Imagi ng 02/15/2024 US Gallbladder 09/09/2022 PROF 14(COMP METB) 12/08/2024 PROF 14(COMP METB) 06/20/2024 THYROID PROFILE WITH TSH 06/20/2024 MRI BRAIN WO W CON 03/20/2025 US ABD 12/12/2024 US ABD 12/08/2024 Plain Treadmill Stress 03/14/2024 THYROID PANEL (T4/TSH/FREE T3) GAGE SUBTYPING (9) (dsDNA, RO 52, RO60, SSB, SWANSON, DELIVERY MERCHANDISER, SCL70,JO1,CENTOMERE) 08/19/2024 CMP (COMP MET CESPEDES) w/eGFR CKD-EPI 2024 CMP (COMP MET CESPEDES) w/eGFR CKD-EPI 2024 Next Appt Details Provider Name:Bhavin Mora, 1 07/05/2024 08:30:00 AM, [address], [address], [place], [address], Insurance Providers Payer Name Payer Address Payer Phone Subscriber Number Group Number Insured Name Patient Relationship to Insured Coverage Start Date Coverage End Date DAVION [employer] EXCH[employer] [address] ATTN CLAIMS [place], [place] [id number] Nelson Leivaelf - patient is the insured Medications Administered Medication Instructions Date of Administration Dosage Notes Dexamethasone, 4mg/mL pa74Ymafnrivj Tgnajzywyhfq08/01/657610 mg60 Medical (General) History Medical History History ICD Code COVID-19 U07.1 Abdominal pain, LLQ R10.32 Acute bronchitis J20.9 Ovarian cyst, left N83.202 Eczema L30.9 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
--- OUTSIDE RECORDS SUMMARY | 2025-04-05 12:30 | XMS_ITS | Clinical Summary ---
Author Organization [facility] Address [address] [place] [address] Care Team Providers Care Agitator Operator Name Role Phone Bryan Zamorano MD Unavailable Social History Tobacco UseTypesPacks/DayYears UsedDateSmoking Tobacco: Never Assessed CommentsUnknownSex and Gender InformationValueDate RecordedSex Assigned at Not on fileLegal ZavZtnvzc35/14/2025 10:15 AM EDTGender IdentityNot on file Sexual OrientationNot on file Plan of Treatment Not on file Insurance Care Teams Team MemberRelationshipSpecialtyStart DateEnd Date Bryan Zamorano MD [address] [place] [address] ReferringCape Cod Hospital Medicine08/16/24
--- OUTSIDE RECORDS SUMMARY | 2025-04-05 12:30 | XMS_ITS | Clinical Summary ---
Author Organization [facility] Address [address] [place] [address] Care Team Providers Care Telecommunications Switch Technician Name Role Phone Bryan Zamorano MD Primary Care Provider [phone] Allergies No known active allergies Medications MedicationSigDispense QuantityRefillsLast FilledStart DateEnd DateStatus esomeprazole (NexIUM) [address] capsule Take 40 mg by mouth before breakfast. Do not open capsule.Active traZODone (Desyrel) 50 mg tablet Take 50 mg by mouth if needed.4Active Active Problems ProblemNoted DateDiagnosed DateBile reflux uufjhcjxf52/03/2024MI 37.0-37.9, adult05/03/20240977Cruexlzplqysnt15/03/7251Kldlwv70/03/2024Hiatal hernia with GERD 05/03/2024Nausea and kphquzia36/03/2024ight upper quadrant abdominal pain 05/03/2024t flank pain05/03/2024ervical cancer jvwelojsq26/22/2023Screening for human vdtmziqogqoukq31/22/2023Left ovarian cyst10/15/2022 Family History Medical HistoryRelationNameCommentsAtrial fibrillationMaternal GrandmotherHeart failureMaternal GrandmotherCABGMaternal Great-Grandmothercardiac arrestMother RelationNameStatusCommentsMaternal GrandmotherMaternal Great-GrandmotherOther Mother Social History Tobacco UseTypesPacks/DayYears UsedDateSmoking Tobacco: NeverSmokeless Tobacco: Never Tobacco Cessation:Counseling Given: Not Answered Alcohol UseStandard Drinks/WeekCommentsNot Currently0 (1 standard drink = 0.6 oz pure alcohol)CommentsUnknownSex and Gender InformationValueDate Recorded Sex Assigned at BirthNot on fileLegal UyiCsrvqo63/21/2024 9:31 AM EDTGender IdentityNot on fileSexual OrientationNot on file Last Filed Vital Signs Vital SignReadingTime TakenCommentsBlood Eqnchfkx324/76006/10/2024 11:40 AM EST Rsqfo755706/10/2024 11:40 AM ESTTemperature--Respiratory Rate--Oxygen Saturation 98%06/10/2024 11:40 AM ESTInhaled Oxygen Concentration--Planzf91.3 kg (210 lb) 06/10/2024 11:40 AM SGMHylbhh586.5 cm (5' 2 )06/10/2024 11:40 AM ESTBody Mass Index38.41006/10/2024 11:40 AM EST Plan of Treatment Health MaintenanceDue DateLast DoneCommentsDepression Dssucozgu69/03/2004 Varicella Vaccines (1 of 2 - 13+ 2-dose series)11/01/2004Hepatitis B Vaccines (1 of 3 - 19+ 3-dose series)11/01/2010Pap Smear11/01/2012dult Brhtxwt6011/01/2013HPV Vaccines (1 - 3-dose SCDM series)11/01/2018Cervical Cancer Uxrnjmatt69/03/2022 HPV/Fpjrvt882COVID-19 Vaccine ( season), 08/03/2020, 07/13/2020Influenza Vaccine (#1)2025Zoster Vaccines (1 of 2) 11/01/2041HIB FapwcfsmDssqdhzks95/29/1995, 07/02/1992, 03/05/1992, Additional history existsIPV CvjwnldtXstcveije45/23/1997, 05/29/1995, 03/05/1992, Additional history existsMeningococcal B VaccineAged OutNo longer eligible based on patient's age to complete this topicMeningococcal VaccineAged OutNo longer eligible based on patient's age to complete this topicPneumococcal Vaccine: Pediatrics (0 to 5 Years) and At-Risk Patients (6 to 64 Years)Aged OutNo longer eligible based on patient's age to complete this topicRotavirus VaccinesAged Out No longer eligible based on patient's age to complete this topic Insurance Care Teams Team MemberRelationshipSpecialtyStart DateEnd Bryan Zamorano MD [address] [facility] [place] [address] PCP - Mmwndqc72/15/24
--- OUTSIDE RECORDS SUMMARY | 2025-04-05 12:30 | XMS_ITS | Clinical Summary ---
Author Organization [facility] Address [address] [place] [address] Care Team Providers Care Child And Adolescent Psychologist Name Role Phone Bryan Zamorano MD Primary Care Provider [phone] Barbie Dang DO Unavailable [phone] Allergies No known active allergies Medications MedicationSigDispense QuantityRefillsLast FilledStart DateEnd DateStatus folic acid (Folvite) 1 MG tablet Take 1 mg by mouth DailyActive methotrexate 2.5 MG tablet Take 2.5 mg by mouth. ON THURSDAY TAKE 3 TABLET IN THE AM AND 3 TABLETS IN THE PM Active esomeprazole (NexIUM) [address] capsule Take 40 mg by mouth in the morning. Take before meals. Do not open capsule. Active metFORMIN (Glucophage) 500 MG tablet Indications:Weight gainTake 1 tablet (500 mg) by mouth in the morning and 1 tablet (500 mg) in the evening. Take with meals. 180 tablet 501/6Active Active Problems ProblemNoted DateDiagnosed DateBalance fhqibwhx62/22/7559Yppwoxzdtrr60/21/2025 Zlbjgjfx07/21/2025Screening for human hjromaxaigaxjz28/22/2023ervical cancer wgyevijxw66/22/2023Left ovarian cyst10/15/2022 Encounters DateTypeDepartmentCare GfvxQqpvcojttbs86/05/2025 7:00 AM ESTTreatment [facility] [address] [place] [phone] Yahir Patterson, PT Cervicalgia (Primary Dx); Intractable migraine without status migrainosus, unspecified migraine type 04/05/2025amboo flowsheet [facility] [address] [place] [address] Yahir Patterson, PT 04/05/20257725Xgmkfg76/29/2025 7:00 AM EDTTreatment [facility] [address] [place] [address] [phone] Yahir Patterson, PT Cervicalgia (Primary Dx); Balance izleyluw40/29/2025[facility] flowsheet [facility] [address] [place] [address] Yahir Patterson, PT 03/29/20255328Wqbdld65/22/2025 7:00 AM EDTEvaluation [facility] [address] [place] [address] Yahir Patterson, PT Cervicalgia (Primary Dx); Intractable migraine without status migrainosus, unspecified migraine type; Balance uunkoghb27/22/2025Plan of Care Documentation [facility] [address] [place] [address] 03/22/2025 flowsheet [facility] [address] [place] [address] Yahir Patterson, PT 03/22/2025Travelfrom Last 3 Months Family History Medical HistoryRelationNameCommentsObesityFatherDavid FlorezBreast cancer Father's SisterElisa FlorezKidney diseaseFather's SisterElisa FlorezAnemiaMother Wanda FlorezDiabetesPaternal GrandmotherLali FlorezObesitySisterCeline BaldwinRelationNameStatusCommentsFatherDavid FlorezAliveFather's SisterElisa FlorezAliveMotherJennifer FlorezAlivePaternal GrandmotherLali FlorezAliveSister Latha BaldwinAlive Social History Tobacco UseTypesPacks/DayYears UsedDateSmoking Tobacco: NeverSmokeless Tobacco: Never Tobacco Cessation:Counseling Given: Not Answered Alcohol UseStandard Drinks/WeekCommentsNever0 (1 standard drink = 0.6 oz pure alcohol)CommentsNoSex and Gender InformationValueDate RecordedSex Assigned at BirthNot on fileLegal HwkAmwzix16/15/2023 6:53 PM EDTGender Identity Not on fileSexual OrientationNot on file Last Filed Vital Signs Vital SignReadingTime TakenCommentsBlood Rkkaaprp45/6007 9:36 AM EDT Ytnyz353012/28/2024 9:36 AM EDTTemperature--Respiratory Slvf144312/28/2024 9:36 AM EDTOxygen Gqecuoqklm43%12/28/2024 9:36 AM EDTInhaled Oxygen Concentration-- Urzqgq41.8 kg (220 lb)12/28/2024 9:36 AM ZXILpinfe144.5 cm (5' 2 )12/28/2024 9:36 AM EDTBody Mass Index40.24012/28/2024 9:36 AM EDT Plan of Treatment DateTypeDepartmentCare Team (Latest Contact Info)Unwktigqngh17/12/2025 8:00 AM ESTTreatment [facility] [address] [place] [phone] Yahir Patterson, PT [address] [place] [address] 05/03/2025 10:30 AM ESTOffice Visit [facility] [address] [place] [phone] Barby Arzate MD [address] [place] [address] 11/15/2025 9:30 AM EDTOffice Visit [facility] [address] [address] Barbie Dang DO [address] [address] Health MaintenanceDue DateLast DoneCommentsCOVID-19 Vaccine ( season) , 08/03/2020, 07/13/2020Influenza Vaccine (#1)2025Pap Smear605/ervical Cancer Lkqdswuhe01/11/2030HPV/Ksdyrj8211/09/2029 11/09/2024, 3Pneumococcal Vaccine: Pediatrics (0 to 5 Years) and At- Risk Patients (6 to 64 Years)Aged OutNo longer eligible based on patient's age to complete this topic Procedures Procedure NamePriorityDate/TimeAssociated DiagnosisCommentsIGP, APT HPV,RFX 16/18,98Ggmqnua39/11/2025 12:00 AM EDT Screening for malignant neoplasm of cervix Encounter for screening for human papillomavirus (HPV) THINPREP TIS PAP AND HPV MRNA E6/E7 WITH REFLEX TO HPV 16,18/85Byabppz48/22/2023 4:52 PM EDT from Last 3 Months or Most Recently Relevant to Health Maintenance Results * IGP, APT HPV,RFX 16/18,45 (11/09/2024 12:00 AM EDT)ComponentValueRef RangeTest MethodAnalysis TimePerformed AtPathologist SignatureDiagnosis:CommentLABC[facility]P Comment:NEGATIVE FOR INTRAEPITHELIAL LESION OR MALIGNANCY.Specimen Adequacy: CommentLABCORPComment: Satisfactory for evaluation. ??Endocervical and/or squamous metaplastic cells (endocervical component) are present. Clinician Provided ICD10:CommentLABCORPComment: Z12.4 Z11.51 Performed By:CommentLABCORPComment:Jamee Rios Advertising Account Executive (ASCP)Cyto Comments.LABCORPNote:CommentLABCORPComment: The Pap smear is a screening test designed to aid in the detection of premalignant and malignant conditions of the uterine cervix. ??It is not a diagnostic procedure and should not be used as the sole means of detecting cervical cancer. ??Both false-positive and false-negative reports do occur. Test Methodology:CommentLABCORPComment: This liquid based ThinPrep(R) pap test was screened with the use of an image guided system. HPV AptimaNegativeNegativeLABCORPComment: This nucleic acid amplification test detects fourteen high-risk HPV types (16,18,31,33,35,39,45,51,52,56,58,59,66,68) without differentiation. Specimen (Source)Anatomical Location / LateralityCollection Method / Volume Collection TimeReceived TimeVaginal Fluid/05/2025 Narrative [facility] - 11/11/2024 12:35 PM EDT Performed at: 01 - [facility] ??[id number] Vocational Case Manager: Magy John MD, Phone: ??[phone] Performed at: ??02 - [facility] ??[id number] Vocational Case Manager: Magy John MD, Phone: ??[phone] Specimen Comment: No. of containers..01 ThinPrep Vial Authorizing ProviderResult TypeResult StatusMona J Nataprawira DOLAB BLOOD ORDERABLESFinal ResultPerforming OrganizationAddressCity/State/ZIP CodePhone Number [facility] * THINPREP TIS PAP AND HPV MRNA E6/E7 WITH REFLEX TO HPV 16,18/45 (10/20/2022 4:52 PM EDT)ComponentValueRef RangeTest MethodAnalysis TimePerformed At Pathologist SignatureREPORT STATUSCANCELEDQUESTComment:Result canceled by the ancillary.CLINICAL INFORMATIONNone givenQUESTLMPNONE GIVENQUESTPREV. PAPNONE GIVENQUESTPREV. BXNONE GIVENQUESTSOURCENone givenQUESTSTATEMENT OF ADEQUACY QUESTComment: Satisfactory for evaluation. Endocervical/transformation zone component absent. GENERAL CATEGORIZATIONCANCELEDQUESTComment:Result canceled by the ancillary. INTERPRETATION/RESULTNegative for intraepithelial lesion or malignancy.QUEST INFECTIONCANCELEDQUESTComment:Result canceled by the ancillary.COMMENTThis Pap test has been evaluated with computer assisted technology.QUESTCYTOTECHNOLOGIST QUESTComment: BGG SCT(ASCP) CT screening location: [facility] [address] [place] [address]. REVIEW CYTOTECHNOLOGISTCANCELEDQUESTComment:Result canceled by the ancillary. PATHOLOGISTCANCELEDQUESTComment:Result canceled by the ancillary.(ALWAYS MESSAGE)QUESTComment: EXPLANATORY NOTE: The Pap is a screening test for cervical cancer. It is not a diagnostic test and is subject to false negative and false positive results. It is most reliable when a satisfactory sample, regularly obtained, is submitted with relevant clinical findings and history, and when the Pap result is evaluated along with historic and current clinical information. HPV MRNA E6/E7Not DetectedNot DetectedQUESTComment: Methodology: Senior Consulting Manager-Mediated Amplification This assay detects E6/E7 viral messenger RNA (mRNA) from 14 high-risk HPV types (16,18,31,33,35,39,45,51,52,56,58,59,66,68). Cervical sources are required for HPV testing. If a vaginal source from a patient who has had a total hysterectomy with removal of cervix was submitted, please contact the testing laboratory for alternative testing options. For additional information, please refer to http://education.DisabledPark/faq/VNT179k6 (This link if provided for information/ educational purposes only.) Specimen (Source)Anatomical Location / LateralityCollection Method / Volume Collection TimeReceived Time10/20/2022 4:52 PM EDT10/22/2022 3:55 AM EDT Narrative Resulting Agency Comment Performing Organization Information ?Site ID: [id number] ?Name: [facility] ?Address: [address] [place] [phone] ?Director: Deepak Portillo MD Authorizing ProviderResult TypeResult StatusMona J Nataprawi DOLAB CYTOLOGY ORDERABLESFinal ResultPerforming OrganizationAddressCity/State/ZIP CodePhone Number QUEST from Last 3 Months or Most Recently Relevant to Health Maintenance Insurance Care Teams Team MemberRelationshipSpecialtyStart DateEnd Date Bryan Zamorano MD [address] [place] [address] PCP - GeneralFamily Medicine11/09/24 Barbie Dang DO [address] [place], [place] [address]ar[address]ides [address] [phone] Referring PhysicianObstetrics and Gynecology11/09/24
--- OUTSIDE RECORDS SUMMARY | 2025-04-05 12:30 | XMS_ITS | Encounter Summary ---
Author Organization [facility] Address [address] [facility] [place] [address] Care Team Providers Care Sales Team Leader Name Role Phone Bryan Zamorano MD Primary Care Provider [phone] Barbie Dang DO Unavailable [phone] Encounter Details DateTypeDepartmentCare Team (Latest Contact Info)Nkcpxdoyevt62/22/2025Plan of Care Documentation [facility] [address] [place] [phone] Social History Tobacco UseTypesPacks/DayYears UsedDateSmoking Tobacco: NeverSmokeless Tobacco: NeverAlcohol UseStandard Drinks/WeekCommentsNever0 (1 standard drink = 0.6 oz pure alcohol)CommentsNoSex and Gender InformationValueDate RecordedSex Assigned at BirthNot on fileLegal XvyVcwsxi33/15/2023 6:53 PM EDTGender Identity Not on fileSexual OrientationNot on filedocumented as of this encounter Plan of Treatment DateTypeDepartmentCare Team (Latest Contact Info)Wsaareqfnev41/12/2025 8:00 AM ESTTreatment [facility] [address] [place] [address] Yahir Patterson, PT [address] [place], [place] [id number] 05/03/2025 10:30 AM ESTOffice Visit [facility] [address] [place] [address] Barby Arzate MD [address] [place] [address] 11/15/2025 9:30 AM EDTOffice Visit [facility] [address] [address] Barbie Dang DO [address] [address] documented as of this encounter Visit Diagnoses Not on filedocumented in this encounter Care Teams Team MemberRelationshipSpecialtyStart DateEnd Date Bryan Zamorano MD [address] [place] [phone] PCP - GeneralFamily Medicine11/09/24 Barbie Dang DO [address] [address] Referring PhysicianObstetrics and Gynecology11/09/24documented as of this encounter
--- OUTSIDE RECORDS SUMMARY | 2025-04-05 12:30 | XMS_ITS | Encounter Summary ---
Author Organization [facility] Address [address] [facility] [place] [address] Care Team Providers Care Passenger Service Representative Name Role Phone Bryan Zamorano MD Primary Care Provider [phone] Barbie Dang DO Unavailable [phone] Encounter Details DateTypeDepartmentCare Team (Latest Contact Info)Zzwqaplgkpt46/05/2025Travel Social History Tobacco UseTypesPacks/DayYears UsedDateSmoking Tobacco: NeverSmokeless Tobacco: NeverAlcohol UseStandard Drinks/WeekCommentsNever0 (1 standard drink = 0.6 oz pure alcohol)CommentsNoSex and Gender InformationValueDate RecordedSex Assigned at BirthNot on fileLegal ZquOgpyup34/15/2023 6:53 PM EDTGender Identity Not on fileSexual OrientationNot on filedocumented as of this encounter Plan of Treatment DateTypeDepartmentCare Team (Latest Contact Info)Qcqpuphyypa87/12/2025 8:00 AM ESTTreatment [facility] [address] [place] [phone] Yahir Patterson, PT [address] [place] [address] 05/03/2025 10:30 AM ESTOffice Visit [facility] [address] [place] [address] Barby Arzate MD [address] [place] [address] 11/15/2025 9:30 AM EDTOffice Visit [facility] [address] [phone] Barbie Dang DO [address] [address] documented as of this encounter Visit Diagnoses Not on filedocumented in this encounter Care Teams Team MemberRelationshipSpecialtyStart DateEnd Date Bryan Zamorano MD [address] [place] [address] PCP - GeneralFamily Medicine11/09/24 Barbie Dang DO [address] [phone] Referring PhysicianObstetrics and Gynecology11/09/24documented as of this encounter
--- OUTSIDE RECORDS SUMMARY | 2025-04-05 12:31 | XMS_ITS | CCD ---
Author Organization [facility] Care Team Providers Care Emt/Paramedic Name Role Phone Nguyen Zamorano Primary Care Physician DR NGUYEN WRIGHT Primary Care Unavailable NILL ., DR FONTENOT [...] Unavailable NILL ., DR FONTENOT Consulting Unavailable SHARP, RHONA Consulting Unavailable LOLITA II, LALO Consulting Unavailable [...] HAY ., DR HENNING Attending Unavailable GRECHNY ., TIMOTHY BERUMEN Consulting Unavaildomingo e GABY ., DR HENNING Admitting Unavailable HOY ., DR CEDILLO Primary Care Unavailable HAY ., DR HENNING Consulting Unavailable LIZBETH CARRILLO Consulting Unavailable NILL, Po R Attending Unavailable NILL, Po R Attending Unavailable NILL, Po R Attending Unavailable NILL, Po R Attending Unavailable NILL, Po R Attending Unavailable BRISEIDA CARRASQUILLO Attending Unavailable BRISEIDA CARRASQUILLO Attending Unavailable Nguyen Zamorano MD Primary Care Provider [phone] Nguyen Zamorano MD Primary Care Provider [phone] Barbie Dang DO Unavailable Nguyen Zamorano MD Primary Care Provider [phone] Allergies Allergy ClassificationReported Allergen(s)Allergy TypeDate of OnsetReaction(s) Facility (1 source)No Known Medication Allergies; Translations: [No Known Medication Allergies]Propensity to adverse reactions (disorder)[facility] Medications Current Medications MedicationDrug Class(es)DatesSig (Normalized)Sig (Original)esomeprazole 40 mg delayed release oral capsule (15 sources)Proton Pump InhibitorStart: 87-88-8907phqq 1 capsule by mouth once dailyNexium 40 mg Cap-EC 40 mg = 1 cap(s), Oral, Daily, # 90 cap(s), Refills(s) 1, Pharmacy: [facility]/pharmacy #[id number], 157.4, cm, 09/26/22 10:43:00 EDT, Height/Length Dosing, 91.7, kg, 09/26/22 10:43:00 EDT, Weight Dosing Start Date: 10/08/22 Status: Orderedfolic acid 1 mg oral tablet (13 sources)take 1 tablet by mouth once dailyfolic acid (Folvite) 1 MG tablet Take 1 mg by mouth Daily Activehyoscyamine sulfate 0.125 mg disintegrating oral tablet (3 sources)Start: 21-71-0217dkdq 1 tablet by mouth four times dailyhyoscyamine 0.125 mg oral tablet, disintegrating 0.125 mg = 1 tab(s), Oral, QID, Refills(s) 0 StartDate: 09/26/22 Status: OrderedmetFORMIN hydrochloride 500 mg oral tablet (8 sources)BiguanideStart: 12-28-2024 End: 59-67-4420qznj 1 tablet by mouth in the morningmetFORMIN (Glucophage) 500 MG tablet Indications: Weight gain Take 1 tablet (500 mg) by mouth in the morning and 1 tablet (500 mg) in the evening. Take with meals. 180 tablet 1 12/28/2024 06/26/2025 Activemethotrexate 2.5 mg oral tablet (13 sources)Folate Analog Metabolic Inhibitormethotrexate 2.5 MG tablet Take 2.5 mg by mouth. ON THURSDAY TAKE 3 TABLET IN THE AM AND 3 TABLETS INTHE PM Active nabumetone 500 mg oral tablet (3 sources)Nonsteroidal Anti-inflammatory DrugStart: 20-47-3369gjbc 2 tablets by mouth once dailynabumetone 500 mg Tab 1,000 mg = 2 tab(s), Oral, Daily, Refills(s) 0 Start Date: 09/26/22 Status: Orderednystatin 190577 unt/ml / triamcinolone acetonide 1 mg/ml topical cream (2 sources)Polyene Antifungal, CorticosteroidStart: 11-09-2024 End: 98-77-7245qjqnvmrg-triamcinolone (Mycolog II) cream Indications: Vulvar itching , Candidiasis of vulva Apply topically in the morning and before bedtime. Do all this for 7 days. 15 g 11/09/2024 11/16/2024 Activesucralfate 100 mg/ml oral suspension (2 sources)Aluminum ComplexStart: 72-28-5817Rupwassx 1 g/10 mL Susp-Oral 1 gm = 10 mL, Oral, QIDACHS, Refills(s) 0 Start Date: 10/08/22 Status: Ordered Completed/Discontinued Medications MedicationDrug Class(es)DatesSig (Normalized)Sig (Original)dexamethasone 1 mg oral tablet (4 sources)Corticosteroid End: 87-25-6699chil 1 tablet by mouth in the morningdexAMETHasone (Decadron) 1 MG tablet Take 1 mg by mouth in the morning and 1 mg in the evening. Take with meals. 11/09/2024 Discontinued Problems Active Problems Problem ClassificationProblemDateDocumented DateEpisodic/ChronicAbdominal hernia (3 sources)Diaphragmatic hernia; Translations: [Diaphragmatic hernia without obstruction or gangrene]Onset: 90-33-9755ExzbxwmsIptrdyigy pain (20 sources)Right upper quadrant pain; Translations: [Right upper quadrant pain] Onset: 37-12-1414LuustffzXwbkazny reactions (3 sources)Ucvmhb97-05-5711NwqhvhldMrewhuk tract disease (12 sources)Biliary calculus; Translations: [Cholelithiasis without obstruction] Onset: 099872-65-0286NcyrcxurOymuigzyss disorders (3 sources)Gastroesophageal reflux disease with hiatal hernia; Translations: [Gastro-esophageal reflux diseasewithout esophagitis]Onset: ChronicGastritis and duodenitis (1 source)Unspecified chronic gastritis without bleeding; Translations: [UNS CHRONIC GASTRITIS W/O BLEEDING]Onset: 68-07-3200EtaozioZxyiydwpu and duodenitis (3 sources)Gastritis; Translations: [Other gastritis without bleeding]Onset: 10-58-7177HibrjcmdGtwolzky; including migraine (8 sources)Migraine; Translations: [Migraine, unspecified, not intractable, without status migrainosus]Onset: 503965-19-5310WyitgkcHpodlhi (2 sources)Candidiasis of vulva; Translations: [Candidiasis of vulva]11-09-2024 EpisodicNausea and vomiting (5 sources)Nausea and vomiting; Translations: [Nausea with vomiting, unspecified]Onset: 01-67-9642YjrooscbAmvhfpvekan chest pain (2 sources)Other chest pain; Translations: [Other chest pain]Onset: 05-03-2024 EpisodicNutritional deficiencies (4 sources)Vitamin D deficiency; Translations: [Vitamin D deficiency, unspecified]71-10-4836VaqdzlhNkuhc inflammatory condition of skin (2 sources)Pruritus of vulva; Translations: [Pruritus vulvae]96-04-9098Yokauqnf Other nervous system disorders (7 sources)Impairment of balance; Translations: [Other abnormalities of gait and mobility]Onset: 106408-64-7725TemckiwvTcewj nutritional; endocrine; and metabolic disorders (3 sources)Body mass index 30+ - lbftfpu83-89-4352PtkracxZrvfb nutritional; endocrine; and metabolic disorders (4 sources)Severe obesity; Translations: [Class 3 severe obesity due to excess calories without serious comorbidity with body mass index (BMI) of 40.0 to 44.9 in adult]28-92-4721MrvelzhGrdmk nutritional; endocrine; and metabolic disorders (4 sources)Weight increased; Translations: [Abnormal weight gain]09-21-2024 EpisodicSpondylosis; intervertebral disc disorders; other back problems (9 sources)Neck pain; Translations: [Cervicalgia]Onset: Episodic Past or Other Problems Problem ClassificationProblemDateDocumented DateEpisodic/ChronicImmunizations and screening for infectious disease (20 sources)Patient encounter status; Translations: [Encounter for screening for human papillomavirus (HPV)]Onset: 347825-55-4148HydfpldpEmzhb screening for suspected conditions (not mental disorders or infectious disease) (10 sources)Cancer cervix screening status; Translations: [Encounter for screening for malignant neoplasm of cervix]Onset: 668046-59-0022Ojsyklau Ovarian cyst (17 sources)Cyst of ovary; Translations: [Cyst of left ovary]Onset: 10-15-2022 84-49-1835Duvxowcg Results Test NameValueInterpretationReference RangeFacilityC3 AND C4on 01-25-2025 3143 MG/DLNormal(88 - 165)[facility] ClinicComment on above:Performed By: #### CBC-D, CMP, UAFLX, ENA6, *GAGE-T, ACAX3, PCR-R, C3-C4, ESRCRP, VD25, CK, HBCA, HBSAB, CCP, RHF #### [facility] [address] [facility], [address] C 435 MG/DLNormal(14 - 44)[place] ClinicComment on above: Performed By: #### CBC-D, CMP, UAFLX, ENA6, *GAGE-T, ACAX3, PCR-R, C3-C4, ESRCRP, VD25, CK, HBCA, HBSAB, CCP, RHF #### [facility] [address] [facility], [address] CBC WITH DIFFon 95-05-0560RMMVUZMI CT0.01 x10^3ulNormal (0.00 - 0.16)[place] ClinicComment on above:Order Comment: 1C 1LFAC[facility]: [facility] [id number] By: #### CBC-D, CMP, UAFLX, ENA6, *GAGE-T, ACAX3, PCR-R, C3-C4, ESRCRP, VD25, CK, HBCA, HBSAB, CCP, RHF #### [facility] [address] [facility], [id number] [phone] Basophils/100 WBC (Bld)0.2 %Normal()[facility] HospitalComment on above:Order Comment: 1C 1[facility]: [facility] [id number] By: #### CBC-D, CMP, UAFLX, ENA6, *GAGE-T, ACAX3, PCR-R, C3-C4, ESRCRP, VD25, CK, HBCA, HBSAB, CCP, RHF #### [facility] [address] [facility], [id number] EOSINOPHIL CT0.03 x10^3ulNormal(0.00 - 0.40)[facility] HospitalComment on above:Order Comment: 1C 1[facility]: [facility] [id number] By: #### CBC-D, CMP, UAFLX, ENA6, *GAGE-T, ACAX3, PCR-R, C3- C4, ESRCRP, VD25, CK, HBCA, HBSAB, CCP, RHF #### [facility] [address] [facility], [id number] [phone] Eosinophils/100 WBC (Bld)0.6 %Normal()[facility] Comment on above:Order Comment: 1C 1[facility]: [facility] [id number] Performed By: #### CBC-D, CMP, UAFLX, ENA6, *GAGE-T, ACAX3, PCR-R, C3-C4, ESRCRP, VD25, CK, HBCA, HBSAB, CCP, RHF #### [facility] [address] [facility], [id number] Hematocrit (Bld) [Volume fraction]39.1 %Normal(37.0 - 47.0)[facility] HospitalComment on above:Order Comment: 1C 1[facility]: [facility] [id number] By: #### CBC-D, CMP, UAFLX, ENA6, *GAGE-T, ACAX3, PCR-R, C3-C4, ESRCRP, VD25, CK, HBCA, HBSAB, CCP, RHF #### [facility] [address] [facility], [id number] Hemoglobin (Bld) [Mass/Vol]12.9 g/dLNormal(12.0 - 16.0) [facility] ClinicComment on above:Order Comment: 1C 1[facility]: [facility] [id number] By: #### CBC-D, CMP, UAFLX, ENA6, *GAGE-T, ACAX3, PCR-R, C3-C4, ESRCRP, VD25, CK, HBCA, HBSAB, CCP, RHF #### [facility] [address] [facility], [facility] IMMATURE GRAN CT0.01 x10^3ulNormal(0.00 - 0.11)[facility] ClinicComment on above:Order Comment: 1C 1[facility]: [facility] [id number] By: #### CBC-D, CMP, UAFLX, ENA6, *GAGE-T, ACAX3, PCR-R, C3- C4, ESRCRP, VD25, CK, HBCA, HBSAB, CCP, RHF #### [facility] [address] [facility], [id number] IMMATURE GRANS (IG)0.2 %Normal()[facility] ClinicComment on above:Order Comment: 1C 1[facility]: [facility] [id number] By: #### CBC-D, CMP, UAFLX, ENA6, *GAGE-T, ACAX3, PCR-R, C3-C4, ESRCRP, VD25, CK, HBCA, HBSAB, CCP, RHF #### [facility] [address] [facility], [id number] LYMPHOCYTE CT1.61 x10^3ulNormal(0.96 - 5.40)[facility] ClinicComment on above:Order Comment: 1C 1[facility]: [facility] [id number] By: #### CBC-D, CMP, UAFLX, ENA6, *GAGE-T, ACAX3, PCR-R, C3- C4, ESRCRP, VD25, CK, HBCA, HBSAB, CCP, RHF #### [facility] [address] [facility], [id number] LYMPS32.0 %Normal()[facility] ClinicComment on above:Order Comment: 1C 1[facility]: [facility] [id number] By: #### CBC- D, CMP, UAFLX, ENA6, *GAGE-T, ACAX3, PCR-R, C3-C4, ESRCRP, VD25, CK, HBCA, HBSAB, CCP, RHF #### [facility] [address] [facility], [id number] MCH (RBC) [Entitic mass]29.3 pgNormal(27.0 - 33.0)[facility] ClinicComment on above:Order Comment: 1C 1[facility]: [facility] [id number] By: #### CBC-D, CMP, UAFLX, ENA6, *GAGE-T, ACAX3, PCR-R, C3- C4, ESRCRP, VD25, CK, HBCA, HBSAB, CCP, RHF #### [facility] [address] [facility], [address] MCHC (RBC) [Mass/Vol]33.0 g/dLNormal(30.0 - 37.0)[facility] ClinicComment on above:Order Comment: 1C 1[facility]: [facility] [id number] By: #### CBC-D, CMP, UAFLX, ENA6, *GAGE-T, ACAX3, PCR-R, C3- C4, ESRCRP, VD25, CK, HBCA, HBSAB, CCP, RHF #### [facility] [address] [facility], [address] MCV (RBC) [Entitic vol]88.7 fLNormal(81.0 - 99.0)[facility] HospitalComment on above:Order Comment: 1C 1[facility]: [facility] [id number] By: #### CBC-D, CMP, UAFLX, ENA6, *GAGE-T, ACAX3, PCR-R, C3- C4, ESRCRP, VD25, CK, HBCA, HBSAB, CCP, RHF #### [facility] [address] [facility], [address] MON[address]0.41 x10^3ulNormal(0.10 - 0.90)[facility] Comment on above:Order Comment: 1C 1[facility]: [facility] [id number] Performed By: #### CBC-D, CMP, UAFLX, ENA6, *GAGE-T, ACAX3, PCR-R, C3-C4, ESRCRP, VD25, CK, HBCA, HBSAB, CCP, RHF #### [facility] [address] [facility], [address] MONOS8.2 %Normal()[facility] HospitalComment on above:Order Comment: 1C 1[facility]: [facility] [id number] By: #### CBC- D, CMP, UAFLX, ENA6, *GAGE-T, ACAX3, PCR-R, C3-C4, ESRCRP, VD25, CK, HBCA, HBSAB, CCP, RHF #### [facility] [address] [facility], [address] NEUTROPHIL CT2.96 x10^3ulNormal(1.50 - 7.00)[facility] HospitalComment on above:Order Comment: 1C 1[facility]: [facility] [id number] By: #### CBC-D, CMP, UAFLX, ENA6, *GAGE-T, ACAX3, PCR-R, C3- C4, ESRCRP, VD25, CK, HBCA, HBSAB, CCP, RHF #### [facility] [address] [facility], [id number] PLT369 x10^3ulNormal(130 - 400)[facility] ClinicComment on above:Order Comment: 1C 1[facility]: [facility] [id number] By: #### CBC-D, CMP, UAFLX, ENA6, *GAGE-T, ACAX3, PCR-R, C3-C4, ESRCRP, VD25, CK, HBCA, HBSAB, CCP, RHF #### [facility] [address] [facility], [id number] RBC4.41 x10^6ulNormal(4.20 - 5.40)[facility] ClinicComment on above:Order Comment: 1C 1[facility]: [facility] [id number] By: #### CBC-D, CMP, UAFLX, ENA6, *GAGE-T, ACAX3, PCR-R, C3-C4, ESRCRP, VD25, CK, HBCA, HBSAB, CCP, RHF #### [facility] [address] [facility], [id number] RDW-SD49.1 flHigh(37.0 - 49.0)[facility] ClinicComment on above:Order Comment: 1C 1[facility]: [facility] [id number] By: #### CBC-D, CMP, UAFLX, ENA6, *GAGE-T, ACAX3, PCR-R, C3-C4, ESRCRP, VD25, CK, HBCA, HBSAB, CCP, RHF #### [facility] [address] [facility], [id number] SEGS58.8 %Normal()[facility] ClinicComment on above:Order Comment: 1C 1[facility]: [facility] [id number] By: #### CBC- D, CMP, UAFLX, ENA6, *GAGE-T, ACAX3, PCR-R, C3-C4, ESRCRP, VD25, CK, HBCA, HBSAB, CCP, RHF #### [facility] [address] [facility], [id number] WBC5.03 x10^3ulNormal(3.80 - 10.60)[facility] ClinicComment on above:Order Comment: 1C 1[facility]: [facility] [id number] By: #### CBC-D, CMP, UAFLX, ENA6, *GAGE-T, ACAX3, PCR-R, C3-C4, ESRCRP, VD25, CK, HBCA, HBSAB, CCP, RHF #### [facility] [address] [facility], [address] COMP MET PANEL w GFR(EPI)on 10-80-0278Veimbua [Mass/Vol] 4.4 g/dLNormal(3.5 - 5.0)[facility] ClinicComment on above:Performed By: #### CBC-D, CMP, UAFLX, ENA6, *GAGE-T, ACAX3, PCR-R, C3-C4, ESRCRP, VD25, CK, HBCA, HBSAB, CCP, RHF #### [facility] [address] [facility], [id number] ALK PHOS76 U/LNormal(38 - 126)[facility] ClinicComment on above:Performed By: #### CBC-D, CMP, UAFLX, ENA6, *GAGE-T, ACAX3, PCR-R, C3-C4, ESRCRP, VD25, CK, HBCA, HBSAB, CCP, RHF #### [facility] [address] [facility], [address] ALT [Catalytic activity/Vol]100 U/LHigh(1 - 35)[facility] ClinicComment on above:Performed By: #### CBC-D, CMP, UAFLX, ENA6, *GAGE-T, ACAX3, PCR-R, C3-C4, ESRCRP, VD25, CK, HBCA, HBSAB, CCP, RHF #### [facility] [address] [place], [id number] AST [Catalytic activity/Vol]69 U/LHigh(15 - 46)[facility] ClinicComment on above:Performed By: #### CBC-D, CMP, UAFLX, ENA6, *GAGE-T, ACAX3, PCR-R, C3-C4, ESRCRP, VD25, CK, HBCA, HBSAB, CCP, RHF #### [facility] [address] [facility], [address] Bilirubin [Mass/Vol]0.7 mg/dLNormal(0.2 - 1.3)[facility] ClinicComment on above:Performed By: #### CBC-D, CMP, UAFLX, ENA6, *GAGE-T, ACAX3, PCR-R, C3-C4, ESRCRP, VD25, CK, HBCA, HBSAB, CCP, RHF #### [facility] [facility], [address] Calcium [Mass/Vol]9.2 mg/dLNormal(8.6 - 10.6)[facility] ClinicComment on above:Performed By: #### CBC-D, CMP, UAFLX, ENA6, *GAGE-T, ACAX3, PCR-R, C3-C4, ESRCRP, VD25, CK, HBCA, HBSAB, CCP, RHF #### [facility] [address] [place], [address] Chloride [Moles/Vol]108 mmol/LNormal(98 - 110)[facility] ClinicComment on above:Performed By: #### CBC-D, CMP, UAFLX, ENA6, *GAGE-T, ACAX3, PCR-R, C3-C4, ESRCRP, VD25, CK, HBCA, HBSAB, CCP, RHF #### [facility] [address] [place], [id number] CO2 [Moles/Vol]28 mmol/LNormal(22 - 30)[facility] Comment on above:Performed By: #### CBC-D, CMP, UAFLX, ENA6, *GAGE-T, ACAX3, PCR- R, C3-C4, ESRCRP, VD25, CK, HBCA, HBSAB, CCP, RHF #### [facility] [address] [facility], [id number] Creatinine [Mass/Vol]0.66 mg/dLNormal(0.52 - 1.04)[facility] HospitalComment on above:Performed By: #### CBC-D, CMP, UAFLX, ENA6, *GAGE-T, ACAX3, PCR-R, C3-C4, ESRCRP, VD25, CK, HBCA, HBSAB, CCP, RHF #### [facility] [address] [facility], [id number] GFR by CKD-GIK620.7 ML/M1.7Normal(60.0)[facility] Comment on above:Performed By: #### CBC-D, CMP, UAFLX, ENA6, *GAGE-T, ACAX3, PCR- R, C3-C4, ESRCRP, VD25, CK, HBCA, HBSAB, CCP, RHF #### [facility] [address] [facility], [id number] Glucose [Mass/Vol]101 mg/dLNormal(74 - 106)[facility] Comment on above:Performed By: #### CBC-D, CMP, UAFLX, ENA6, *GAGE-T, ACAX3, PCR- R, C3-C4, ESRCRP, VD25, CK, HBCA, HBSAB, CCP, RHF #### [facility] [address] [facility], [id number] Potassium [Moles/Vol]4.3 mmol/LNormal(3.5 - 5.1)[facility] ClinicComment on above:Performed By: #### CBC-D, CMP, UAFLX, ENA6, *GAGE-T, ACAX3, PCR-R, C3-C4, ESRCRP, VD25, CK, HBCA, HBSAB, CCP, RHF #### [facility] [address] [facility], [address] Protein [Mass/Vol]7.2 g/dLNormal(6.3 - 8.2)[facility] Comment on above:Performed By: #### CBC-D, CMP, UAFLX, ENA6, *GAGE-T, ACAX3, PCR- R, C3-C4, ESRCRP, VD25, CK, HBCA, HBSAB, CCP, RHF #### [facility] [address] [facility], [id number] Sodium [Moles/Vol]139 mmol/LNormal(135 - 145)[facility] ClinicComment on above:Performed By: #### CBC-D, CMP, UAFLX, ENA6, *GAGE-T, ACAX3, PCR-R, C3-C4, ESRCRP, VD25, CK, HBCA, HBSAB, CCP, RHF #### [facility] [address] [facility], [address] Urea nitrogen [Mass/Vol]8 mg/dLNormal(4 - 25)[facility] ClinicComment on above:Performed By: #### CBC-D, CMP, UAFLX, ENA6, *GAGE-T, ACAX3, PCR-R, C3-C4, ESRCRP, VD25, CK, HBCA, HBSAB, CCP, RHF #### [facility] [address] [facility], [address] SED RATE - CRPon 96-01-6479BSQ EXTENDED RANGE1.52 MG/L Normal(0.00 - 5.00)[facility] ClinicComment on above:Performed By: #### CBC-D, CMP, UAFLX, ENA6, *GAGE-T, ACAX3, PCR-R, C3-C4, ESRCRP, VD25, CK, HBCA, HBSAB, CCP, RHF #### [facility] [address] [facility], [id number] SED RATE WEST.3 MM/HRNormal(0 - 25)[facility] ClinicComment on above:Performed By: #### CBC-D, CMP, UAFLX, ENA6, *GAGE-T, ACAX3, PCR-R, C3- C4, ESRCRP, VD25, CK, HBCA, HBSAB, CCP, RHF #### [facility] [address] [facility], [address] CBC/ALB/ALT/AST/ALK/CRon 20-29-9672Mycqqqi [Mass/Vol]4.5 g/dLNormal(3.5 - 5.0)[facility] ClinicComment on above:Order Comment: FACILITY: [facility] [id number] By: #### CBC-D, CMP, UAFLX, ENA6, *GAGE-T, ACAX3, PCR-R, C3-C4, ESRCRP, VD25, CK, HBCA, HBSAB, CCP, RHF #### [facility] [address] [facility], [id number] ALK PHOS65 U/LNormal(38 - 126)[facility] ClinicComment on above:Order Comment: FACILITY: [facility] [id number] By: #### CBC-D, CMP, UAFLX, ENA6, *GAGE-T, ACAX3, PCR-R, C3-C4, ESRCRP, VD25, CK, HBCA, HBSAB, CCP, RHF #### [facility] [address] [facility], [id number] ALT [Catalytic activity/Vol]75 U/LHigh(1 - 35)[facility] ClinicComment on above:Order Comment: FACILITY: [facility] [id number] Performed By: #### CBC-D, CMP, UAFLX, ENA6, *GAGE-T, ACAX3, PCR-R, C3-C4, ESRCRP, VD25, CK, HBCA, HBSAB, CCP, RHF #### [facility] [address] [facility], [id number] AST [Catalytic activity/Vol]43 U/LNormal(15 - 46)[facility]Comment [facility] above:Order Comment: FACILITY: [facility] [id number] Performed By: #### CBC-D, CMP, UAFLX, ENA6, *GAGE-T, ACAX3, PCR-R, C3-C4, ESRCRP, VD25, CK, HBCA, HBSAB, CCP, RHF #### [facility] [address] [facility], [id number] Creatinine [Mass/Vol]0.78 mg/dLNormal(0.52 - 1.04)[facility]:Order Comment: [facility]ILITY: [facility] [id number] By: #### CBC-D, CMP, UAFLX, ENA6, *GAGE-T, ACAX3, PCR-R, C3- C4, ESRCRP, VD25, CK, HBCA, HBSAB, CCP, RHF #### [facility] [address] [facility], [address] GFR by CKD-ZAF511.8 ML/M1.7Normal(60.0)[facility] Comment on above:Order Comment: FACILITY: [facility] [id number] Performed By: #### CBC-D, CMP, UAFLX, ENA6, *GAGE-T, ACAX3, PCR-R, C3-C4, ESRCRP, VD25, CK, HBCA, HBSAB, CCP, RHF #### [facility] [address] [facility], [address] Hematocrit (Bld) [Volume fraction]34.8 %Low(37.0 - 47.0) [facility] [id number] By: #### CBC-D, CMP, UAFLX, ENA6, *GAGE-T, ACAX3, PCR-R, C3- C4, ESRCRP, VD25, CK, HBCA, HBSAB, CCP, RHF #### [facility] [address] [facility], [address] Hemoglobin (Bld) [Mass/Vol]11.4 g/dLLow(12.0 - 16.0) [facility] Comment: F[facility]: [facility] [id number] By: #### CBC-D, CMP, UAFLX, ENA6, *GAGE-T, ACAX3, PCR-R, C3- C4, ESRCRP, VD25, CK, HBCA, HBSAB, CCP, RHF #### [facility] [address] [facility], [address] MCH (RBC) [Entitic mass]28.9 pgNormal(27.0 - 33.0)[facility] ClinicComment on above:Order Comment: FACILITY: [facility] [id number] Performed By: #### CBC-D, CMP, UAFLX, ENA6, *GAGE-T, ACAX3, PCR-R, C3-C4, ESRCRP, VD25, CK, HBCA, HBSAB, CCP, RHF #### [facility] [address] [facility], [address] MCHC (RBC) [Mass/Vol]32.8 g/dLNormal(30.0 - 37.0)[facility] ClinicComment on above:Order Comment: FACILITY: [facility] [id number] Performed By: #### CBC-D, CMP, UAFLX, ENA6, *GAGE-T, ACAX3, PCR-R, C3-C4, ESRCRP, VD25, CK, HBCA, HBSAB, CCP, RHF #### [facility] [address] [facility], [address] MCV (RBC) [Entitic vol]88.1 fLNormal(81.0 - 99.0)[facility] ClinicComment on above:Order Comment: FACILITY: [facility] [id number] Performed By: #### CBC-D, CMP, UAFLX, ENA6, *GAGE-T, ACAX3, PCR-R, C3-C4, ESRCRP, VD25, CK, HBCA, HBSAB, CCP, RHF #### [facility] [address] [facility], [address] PLT325 x10^3ulNormal(130 - 400)[facility] ClinicComment on above:Order Comment: FACILITY: [facility] [id number] By: #### CBC-D, CMP, UAFLX, ENA6, *GAGE-T, ACAX3, PCR-R, C3-C4, ESRCRP, VD25, CK, HBCA, HBSAB, CCP, RHF #### [facility] [address] [facility], [id number] RBC3.95 x10^6ulLow(4.20 - 5.40)[facility] ClinicComment on above:Order Comment: FACILITY: [facility] [id number] By: #### CBC-D, CMP, UAFLX, ENA6, *GAGE-T, ACAX3, PCR-R, C3-C4, ESRCRP, VD25, CK, HBCA, HBSAB, CCP, RHF #### [facility] [address] [facility], [id number] WBC6.01 x10^3ulNormal(3.80 - 10.60)[facility] ClinicComment on above:Order Comment: FACILITY: [facility] [id number] By: #### CBC-D, CMP, UAFLX, ENA6, *GAGE-T, ACAX3, PCR-R, C3-C4, ESRCRP, VD25, CK, HBCA, HBSAB, CCP, RHF #### [facility] [address] [facility], [address] Laboratory - Cytologyon [id number] Cyto stain Nom (Cvx/Vag) [ID]CommentNOCT HealthcareComment on above:Jamee Rios Auto Body Repair Technician (ASCP)Cytology report Cyto stain Doc (Cvx/Vag)CommentCrittenton Behavioral Health Comment on above:NEGATIVE FOR INTRAEPITHELIAL LESION OR MALIGNANCY.Cytology report Cyto stain.thin prep Doc (Cvx/Vag)CommentCrittenton Behavioral HealthComment on above: This liquid based ThinPrep(R) pap test was screened with the use of an image guided system. Statement of adequacy Cyto stain (Cvx/Vag) [Interp]CommentNOCT HealthcareComment on above:Satisfactory for evaluation. Endocervical and/or squamous metaplastic cells (endocervical component) are present. Laboratory - Microbiology and Antimicrobial susceptibilityon [id number] 16+18+31+33+35+39+45+51+52+56+58+59+66+68 DNA Probe+sig amp Ql (Cvx)Negative NegativeNOCT HealthcareComment on above:This nucleic acid amplification test detects fourteen high-risk HPV types (16,18,31,33,35,39,45,51,52,56,58,59,66,68) without differentiation. Microscopic observation Other stain Nom (Unsp spec).[facility] - Miscellaneous testson 01-08-4009Ykwowvu comment (Unsp spec) [Interp]CommentNOCT HealthcareComment on above:The Pap smear is a screening test designed to aid in the detection of premalignant and malignant conditions of the uterine cervix. It is not a diagnostic procedure and should not be used as the sole means of detecting cervical cancer. Both false-positive and false-negative reports do occur. No Panel Informationon [id number] ICD code [Identifier]CommentNOCT HealthcareComment on above:Z12.4 Z11.51 Performed at: 01 - [facility] [id number] [facility] Nurse: Magy John MD, Phone: [phone] Performed at: - [facility] [id number] [facility] Nurse: Magy John MD, Phone: [phone] Specimen Comment: No. of containers..01 ThinPrep VialLABCORPNOMS HealthcareSED RATE - CRPon [id number] EXTENDED RANGE2.14 MG/LNormal(0.00 - 5.00)[facility]ix ClinicComment on above:Performed By: #### CBC-D, CMP, UAFLX, ENA6, *GAGE-T, ACAX3, PCR-R, C3-C4, ESRCRP, VD25, CK, HBCA, HBSAB, CCP, RHF #### [facility] [address] [facility], [id number] SED RATE WEST.13 MM/HRNormal(0 - 25)Nix ClinicComment on above:Performed By: #### CBC-D, CMP, UAFLX, ENA6, *GAGE-T, ACAX3, PCR-R, C3- C4, ESRCRP, VD25, CK, HBCA, HBSAB, CCP, RHF #### [facility] [address] [facility], [address] C3 AND C4on 10-07-2024 3165 MG/DLNormal(88 - 165)Nix ClinicComment on above:Performed By: #### CBC-D, CMP, UAFLX, ENA6, *GAGE-T, ACAX3, PCR-R, C3-C4, ESRCRP, VD25, CK, HBCA, HBSAB, CCP, RHF #### [facility] [facility], [address] C 439 MG/DLNormal(14 - 44)Nix ClinicComment on above: Performed By: #### CBC-D, CMP, UAFLX, ENA6, *GAGE-T, ACAX3, PCR-R, C3-C4, ESRCRP, VD25, CK, HBCA, HBSAB, CCP, RHF #### [facility] [address] [facility], [address] CBC/ALB/ALT/AST/ALK/CRon 20-30-1845Ctzkzse [Mass/Vol]4.4 g/dLNormal(3.5 - 5.0)[facility] HospitalComment on above:Order Comment: [facility]: [facility] [id number] By: #### CBC-D, CMP, UAFLX, ENA6, *GAGE-T, ACAX3, PCR-R, C3-C4, ESRCRP, VD25, CK, HBCA, HBSAB, CCP, RHF #### [facility] [address] [facility], [id number] ALK PHOS63 U/LNormal(38 - 126)[facility] HospitalComment on above:Order Comment: [facility]: [facility] [id number] By: #### CBC-D, CMP, UAFLX, ENA6, *GAGE-T, ACAX3, PCR-R, C3-C4, ESRCRP, VD25, CK, HBCA, HBSAB, CCP, RHF #### [facility] [address] [facility], [id number] ALT [Catalytic activity/Vol]102 U/LHigh(1 - 35)[facility] HospitalComment on above:Order Comment: FACILITY: [facility] [id number] Performed By: #### CBC-D, CMP, UAFLX, ENA6, *GAGE-T, ACAX3, PCR-R, C3-C4, ESRCRP, VD25, CK, HBCA, HBSAB, CCP, RHF #### [facility] [address] [facility], [id number] AST [Catalytic activity/Vol]45 U/LNormal(15 - 46)[facility] HospitalCommackinac straits hospital on above:Order Comment: FACILITY: [facility] [id number] Performed By: #### CBC-D, CMP, UAFLX, ENA6, *GAGE-T, ACAX3, PCR-R, C3-C4, ESRCRP, VD25, CK, HBCA, HBSAB, CCP, RHF #### [facility] [address] [facility], [address] Creatinine [Mass/Vol]0.66 mg/dLNormal(0.52 - 1.04)[facility] HospitalComment on above:Order Comment: [id number] By: #### CBC-D, CMP, UAFLX, ENA6, *GAGE-T, ACAX3, PCR-R, C3- C4, ESRCRP, VD25, CK, HBCA, HBSAB, CCP, RHF #### [facility] [address] [facility], [address] GFR by CKD-LSG761.5 ML/M1.7Normal(60.0)[facility] Comment on above:Order Comment: [id number] Performed By: #### CBC-D, CMP, UAFLX, ENA6, *GAGE-T, ACAX3, PCR-R, C3-C4, ESRCRP, VD25, CK, HBCA, HBSAB, CCP, RHF #### [facility] [address] [facility], [address] Hematocrit (Bld) [Volume fraction]37.4 %Normal(37.0 - 47.0)[facility] HospitalComment on above:Order Comment: [facility]: [facility] [id number] By: #### CBC-D, CMP, UAFLX, ENA6, *GAGE-T, ACAX3, PCR-R, C3- C4, ESRCRP, VD25, CK, HBCA, HBSAB, CCP, RHF #### [facility] [address] [facility], [address] Hemoglobin (Bld) [Mass/Vol]11.9 g/dLLow(12.0 - 16.0) [facility] HospitalComment on above:Order Comment: [facility]: [facility] [id number] By: #### CBC-D, CMP, UAFLX, ENA6, *GAGE-T, ACAX3, PCR-R, C3- C4, ESRCRP, VD25, CK, HBCA, HBSAB, CCP, RHF #### [facility] [address] [facility], [id number] MCH (RBC) [Entitic mass]27.8 pgNormal(27.0 - 33.0)Nix ClinicComment on above:Order Comment: FACILITY: [facility] [id number] Performed By: #### CBC-D, CMP, UAFLX, ENA6, *GAGE-T, ACAX3, PCR-R, C3-C4, ESRCRP, VD25, CK, HBCA, HBSAB, CCP, RHF #### [facility] [address] [facility], [address] MCHC (RBC) [Mass/Vol]31.8 g/dLNormal(30.0 - 37.0)Nix ClinicComment on above:Order Comment: FACILITY: [facility] [id number] Performed By: #### CBC-D, CMP, UAFLX, ENA6, *GAGE-T, ACAX3, PCR-R, C3-C4, ESRCRP, VD25, CK, HBCA, HBSAB, CCP, RHF #### [facility] [address] [facility], [id number] MCV (RBC) [Entitic vol]87.4 fLNormal(81.0 - 99.0)Nix ClinicComment on above:Order Comment: FACILITY: [facility] [id number] Performed By: #### CBC-D, CMP, UAFLX, ENA6, *GAGE-T, ACAX3, PCR-R, C3-C4, ESRCRP, VD25, CK, HBCA, HBSAB, CCP, RHF #### [facility] [address] [facility], [id number] PLT314 x10^3ulNormal(130 - 400)Nix ClinicComment on above:Order Comment: FACILITY: [facility] [id number] By: #### CBC-D, CMP, UAFLX, ENA6, *GAGE-T, ACAX3, PCR-R, C3-C4, ESRCRP, VD25, CK, HBCA, HBSAB, CCP, RHF #### [facility] [address] [facility], [id number] RBC4.28 x10^6ulNormal(4.20 - 5.40)Nix ClinicComment on above:Order Comment: FACILITY: [facility] [id number] By: #### CBC-D, CMP, UAFLX, ENA6, *GAGE-T, ACAX3, PCR-R, C3-C4, ESRCRP, VD25, CK, HBCA, HBSAB, CCP, RHF #### [facility] [facility], [id number] WBC7.08 x10^3ulNormal(3.80 - 10.60)Nix ClinicComment on above:Order Comment: F[facility]: [facility] [id number] By: #### CBC-D, CMP, UAFLX, ENA6, *GAGE-T, ACAX3, PCR-R, C3-C4, ESRCRP, VD25, CK, HBCA, HBSAB, CCP, RHF #### [facility] [facility], [id number] SED RATE - CRPon [id number] EXTENDED RANGE1.49 MG/L Normal(0.00 - 5.00)Nix ClinicComment on above:Performed By: #### CBC-D, CMP, UAFLX, ENA6, *GAGE-T, ACAX3, PCR-R, C3-C4, ESRCRP, VD25, CK, HBCA, HBSAB, CCP, RHF #### [facility] [address] [facility], [id number] SED RATE WEST.6 MM/HRNormal(0 - 25)Nix ClinicComment on above:Performed By: #### CBC-D, CMP, UAFLX, ENA6, *GAGE-T, ACAX3, PCR-R, C3- C4, ESRCRP, VD25, CK, HBCA, HBSAB, CCP, RHF #### [facility] [address] [place], [place] [address]. [facility], [facility] ANA SUBTYPING (8)on [id number] CENTROMERE B<0.4 Normal(0.0 - 10.0)Superior ClinicComment on above:Result Comment: PERFORMED ON PHADIA EFFECTIVE [id number] By: #### CBC-D, CMP, UAFLX, ENA6, *GAGE-T, ACAX3, PCR-R, C3-C4, ESRCRP, VD25, CK, HBCA, HBSAB, CCP, RHF #### [facility] [address] [place], [place] [address] [facility], [facility] ANTI ds DNA0.8 IU/MLNormal(0.0 - 15.0)[facility] Comment on above:Performed By: #### CBC-D, CMP, UAFLX, ENA6, *GAGE-T, ACAX3, PCR- R, C3-C4, ESRCRP, VD25, CK, HBCA, HBSAB, CCP, RHF #### [facility] [address] [place], [place] [address] [facility], [facility] ANTI SHERMAN-1<0.3Normal(0.0 - 10.0)[facility] HospitalComment on above:Performed By: #### CBC-D, CMP, UAFLX, ENA6, *GAGE-T, ACAX3, PCR-R, C3-C4, ESRCRP, VD25, CK, HBCA, HBSAB, CCP, RHF #### [facility] [address] [place], [place] [address] [facility], [facility] ANTI COPER HAND (U1RNP)0.9 U/mLNormal(0.0 - 10.0)[facility] Comment on above:Performed By: #### CBC-D, CMP, UAFLX, ENA6, *GAGE-T, ACAX3, PCR- R, C3-C4, ESRCRP, VD25, CK, HBCA, HBSAB, CCP, RHF #### [facility] [address] [place], [place] [address] [facility], [address] ANTI SCL 70<0.6Normal(0.0 - 10.0)Nix ClinicComment on above:Performed By: #### CBC-D, CMP, UAFLX, ENA6, *GAGE-T, ACAX3, PCR-R, C3-C4, ESRCRP, VD25, CK, HBCA, HBSAB, CCP, RHF #### [facility] [address] [place], [place] [address] [facility], [address] ANTI SWANSON<0.7Normal(0.0 - 10.0)Nix ClinicComment on above:Performed By: #### CBC-D, CMP, UAFLX, ENA6, *GAGE-T, ACAX3, PCR-R, C3-C4, ESRCRP, VD25, CK, HBCA, HBSAB, CCP, RHF #### [facility] [address] [place] [address] Rd. [facility], [address] ANTI SSB/LA<0.4Normal(0.0 - 10.0)Nix ClinicComment on above:Performed By: #### CBC-D, CMP, UAFLX, ENA6, *GAGE-T, ACAX3, PCR-R, C3-C4, ESRCRP, VD25, CK, HBCA, HBSAB, CCP, RHF #### [facility] [address] [place], [place] [address] [facility], [address] SSA/RO52<0.3Normal(0.0 - 10.0)Nix ClinicComment on above:Performed By: #### CBC-D, CMP, UAFLX, ENA6, *GAGE-T, ACAX3, PCR-R, C3-C4, ESRCRP, VD25, CK, HBCA, HBSAB, CCP, RHF #### [facility] [address] [place], [place] [address] [facility], [address] SSA/RO60<0.4Normal(0.0 - 10.0)Nix ClinicComment on above:Performed By: #### CBC-D, CMP, UAFLX, ENA6, *GAGE-T, ACAX3, PCR-R, C3-C4, ESRCRP, VD25, CK, HBCA, HBSAB, CCP, RHF #### [facility] [address] [facility], [address] ANA with TITERon 12-81-0200DJO by HEp-2 CELLSPositive High(NEG - NEG)Nix ClinicComment on above:Performed By: #### CBC-D, CMP, UAFLX, ENA6, *GAGE-T, ACAX3, PCR-R, C3-C4, ESRCRP, VD25, CK, HBCA, HBSAB, CCP, RHF #### [facility] [address] [facility], [address] ANA TITERMIXEDHigh(<1:40 - 1:40)Nix ClinicComment on above:Result Comment: 1:80 GAGE PATTERN = CENTROMERE1:320 GAGE PATTERN = NUCLEOLAR Performed By: #### CBC-D, CMP, UAFLX, ENA6, *GAGE-T, ACAX3, PCR-R, C3-C4, ESRCRP, VD25, CK, HBCA, HBSAB, CCP, RHF #### [facility] [address] [facility], [address] C3 AND C4on 08-23-2024 3143 MG/DLNormal(88 - 165)Nix ClinicComment on above:Performed By: #### CBC-D, CMP, UAFLX, ENA6, *GAGE-T, ACAX3, PCR-R, C3-C4, ESRCRP, VD25, CK, HBCA, HBSAB, CCP, RHF #### [facility] [address] [facility], [address] C 426 MG/DLNormal(14 - 44)Nix ClinicComment on above: Performed By: #### CBC-D, CMP, UAFLX, ENA6, *GAGE-T, ACAX3, PCR-R, C3-C4, ESRCRP, VD25, CK, HBCA, HBSAB, CCP, RHF #### [facility] [address] [facility], [address] CARDIOLIPIN IGG, IGA, IGMon 66-14-2117WVG, IgA1.5 U/mL Low(14.0 - 20.0)[facility] ClinicComment on above:Performed By: #### CBC-D, CMP, UAFLX, ENA6, *GAGE-T, ACAX3, PCR-R, C3-C4, ESRCRP, VD25, CK, HBCA, HBSAB, CCP, RHF #### [facility] [address] [place], [place] [address] [facility], [address] ACA, IgG1.0 U/mLLow(10.0 - 40.0)[facility] ClinicComment on above:Performed By: #### CBC-D, CMP, UAFLX, ENA6, *GAGE-T, ACAX3, PCR-R, C3-C4, ESRCRP, VD25, CK, HBCA, HBSAB, CCP, RHF #### [facility] [address] [place], [place] [address] [facility], [address] ACA, IgM29.0 U/mLNormal(10.0 - 40.0)Nix ClinicComment on above:Result Comment: Result between 10.0 - 40.0 U/mL is considered weak positive -recommend initially retesting the patient after 8 - 12 weeks and then as clinically indicated.Performed By: #### CBC-D, CMP, UAFLX, ENA6, *GAGE-T, ACAX3, PCR-R, C3-C4, ESRCRP, VD25, CK, HBCA, HBSAB, CCP, RHF #### [facility] [address] [facility], [address] CBC WITH DIFFon [id number] CT0.03 x10^3ulNormal (0.00 - 0.16)[facility] ClinicComment on above:Order Comment: F[facility]: [facility] [id number] By: #### CBC-D, CMP, UAFLX, ENA6, *GAGE-T, ACAX3, PCR-R, C3-C4, ESRCRP, VD25, CK, HBCA, HBSAB, CCP, RHF #### [facility] [address] [facility], [address]302 [phone] Basophils/100 WBC (Bld)0.2 %Normal()[facility] HospitalComment on above:Order Comment: [facility]: [facility] [id number] By: #### CBC-D, CMP, UAFLX, ENA6, *GAGE-T, ACAX3, PCR-R, C3-C4, ESRCRP, VD25, CK, HBCA, HBSAB, CCP, RHF #### [facility] [facility], [id number] EOSINOPHIL CT0.00 x10^3ulNormal(0.00 - 0.40)[facility] HospitalComment on above:Order Comment: F[facility]: [facility] [id number] By: #### CBC-D, CMP, UAFLX, ENA6, *GAGE-T, ACAX3, PCR-R, C3-C4, ESRCRP, VD25, CK, HBCA, HBSAB, CCP, RHF #### [facility] [address] [facility], [id number] [phone] Eosinophils/100 WBC (Bld)0.0 %Normal()[facility] Comment on above:Order Comment: FACILITY: [facility] [id number] By: #### CBC-D, CMP, UAFLX, ENA6, *GAGE-T, ACAX3, PCR-R, C3-C4, ESRCRP, VD25, CK, HBCA, HBSAB, CCP, RHF #### [facility] [address] [facility], [id number] Hematocrit (Bld) [Volume fraction]39.9 %Normal(37.0 - 47.0)[facility] ClinicComment on above:Order Comment: FACILITY: [facility] [id number] By: #### CBC-D, CMP, UAFLX, ENA6, *GAGE-T, ACAX3, PCR-R, C3-C4, ESRCRP, VD25, CK, HBCA, HBSAB, CCP, RHF #### [facility] [address] [facility], [address] Hemoglobin (Bld) [Mass/Vol]12.9 g/dLNormal(12.0 - 16.0) [facility] ClinicComment on above:Order Comment: FACILITY: [facility] [id number] By: #### CBC-D, CMP, UAFLX, ENA6, *GAGE-T, ACAX3, PCR-R, C3-C4, ESRCRP, VD25, CK, HBCA, HBSAB, CCP, RHF #### [facility] [address] [facility], [address] I[address]ATURE GRAN CT0.11 x10^3ulNormal(0.00 - 0.11)[facility] ClinicComment on above:Order Comment: FACILITY: [facility] [id number] By: #### CBC-D, CMP, UAFLX, ENA6, *GAGE-T, ACAX3, PCR-R, C3-C4, ESRCRP, VD25, CK, HBCA, HBSAB, CCP, RHF #### [facility] [address] [facility], [address] IMMATURE GRANS (IG)0.8 %Normal()Superior ClinicComment on above:Order Comment: FACILITY: [facility] [id number] By: #### CBC-D, CMP, UAFLX, ENA6, *GAGE-T, ACAX3, PCR-R, C3-C4, ESRCRP, VD25, CK, HBCA, HBSAB, CCP, RHF #### [facility] [address] [facility], [address] LYMPHOCYTE CT1.98 x10^3ulNormal(0.96 - 5.40)[facility] ClinicComment on above:Order Comment: FACILITY: [facility] [id number] By: #### CBC-D, CMP, UAFLX, ENA6, *GAGE-T, ACAX3, PCR-R, C3-C4, ESRCRP, VD25, CK, HBCA, HBSAB, CCP, RHF #### [facility] [address] [facility], [address] LYMPS14.9 %Normal()Superior ClinicComment on above:Order Comment: FACILITY: [facility] [id number] By: #### CBC-D, CMP, UAFLX, ENA6, *GAGE-T, ACAX3, PCR-R, C3-C4, ESRCRP, VD25, CK, HBCA, HBSAB, CCP, RHF #### [facility] [address] [facility], [id number] MCH (RBC) [Entitic mass]27.5 pgNormal(27.0 - 33.0)[facility] ClinicComment on above:Order Comment: FACILITY: [facility] [id number] By: #### CBC-D, CMP, UAFLX, ENA6, *GAGE-T, ACAX3, PCR-R, C3-C4, ESRCRP, VD25, CK, HBCA, HBSAB, CCP, RHF #### [facility] [address] [facility], [address] MCHC (RBC) [Mass/Vol]32.3 g/dLNormal(30.0 - 37.0)[facility] ClinicComment on above:Order Comment: FACILITY: [facility] [id number] By: #### CBC-D, CMP, UAFLX, ENA6, *GAGE-T, ACAX3, PCR-R, C3-C4, ESRCRP, VD25, CK, HBCA, HBSAB, CCP, RHF #### [facility] [address] [facility], [address] MCV (RBC) [Entitic vol]85.1 fLNormal(81.0 - 99.0)[facility] HospitalComment on above:Order Comment: F[facility]: [facility] [id number] By: #### CBC-D, CMP, UAFLX, ENA6, *GAGE-T, ACAX3, PCR-R, C3-C4, ESRCRP, VD25, CK, HBCA, HBSAB, CCP, RHF #### [facility] [address] [facility], [facility] MONOCYTE CT0.81 x10^3ulNormal(0.10 - 0.90)[facility] Comment on above:Order Comment: FACILITY: [facility] [id number] By: #### CBC-D, CMP, UAFLX, ENA6, *GAGE-T, ACAX3, PCR-R, C3-C4, ESRCRP, VD25, CK, HBCA, HBSAB, CCP, RHF #### [facility] [facility], [address] MONOS6.1 %Normal()[facility] ClinicComment on above:Order Comment: FACILITY: [facility] [id number] By: #### CBC-D, CMP, UAFLX, ENA6, *GAGE-T, ACAX3, PCR-R, C3-C4, ESRCRP, VD25, CK, HBCA, HBSAB, CCP, RHF #### [facility] [address] [facility], [address] NEUTROPHIL CT10.37 x10^3ulHigh(1.50 - 7.00)[facility] Comment on above:Order Comment: FACILITY: [facility] [id number] By: #### CBC-D, CMP, UAFLX, ENA6, *GAGE-T, ACAX3, PCR-R, C3-C4, ESRCRP, VD25, CK, HBCA, HBSAB, CCP, RHF #### [facility] [address] [facility], [address] PLT379 x10^3ulNormal(130 - 400)[facility] ClinicComment on above:Order Comment: FACILITY: [facility] [id number] By: #### CBC-D, CMP, UAFLX, ENA6, *GAGE-T, ACAX3, PCR-R, C3-C4, ESRCRP, VD25, CK, HBCA, HBSAB, CCP, RHF #### [facility] [address] [facility], [address] RBC4.69 x10^6ulNormal(4.20 - 5.40)Super[facility] ClinicComment on above:Order Comment: FACILITY: [facility] [id number] By: #### CBC-D, CMP, UAFLX, ENA6, *GAGE-T, ACAX3, PCR-R, C3-C4, ESRCRP, VD25, CK, HBCA, HBSAB, CCP, RHF #### [facility] [address] [facility], [address] [phone]-OP37.0 flNormal(37.0 - 49.0)[facility] ClinicComment on above:Order Comment: FACILITY: [facility] [id number] By: #### CBC-D, CMP, UAFLX, ENA6, *GAGE-T, ACAX3, PCR-R, C3-C4, ESRCRP, VD25, CK, HBCA, HBSAB, CCP, RHF #### [facility] [address] [facility], [id number] SEGS78.0 %Normal()Superior ClinicComment on above:Order Comment: FACILITY: [facility] [id number] By: #### CBC-D, CMP, UAFLX, ENA6, *GAGE-T, ACAX3, PCR-R, C3-C4, ESRCRP, VD25, CK, HBCA, HBSAB, CCP, RHF #### [facility] [address] [facility], [address] WBC13.30 x10^3ulHigh(3.80 - 10.60)Nix ClinicComment on above:Order Comment: FACILITY: [facility] [id number] By: #### CBC-D, CMP, UAFLX, ENA6, *GAGE-T, ACAX3, PCR-R, C3-C4, ESRCRP, VD25, CK, HBCA, HBSAB, CCP, RHF #### [facility] [address] [facility], [address] COMP MET PANEL w GFR(EPI)on [id number] [Mass/Vol] 4.4 g/dLNormal(3.5 - 5.0)Nix ClinicComment on above:Performed By: #### CBC-D, CMP, UAFLX, ENA6, *GAGE-T, ACAX3, PCR-R, C3-C4, ESRCRP, VD25, CK, HBCA, HBSAB, CCP, RHF #### [facility] [address] [facility], [address] ALK PHOS64 U/LNormal(38 - 126)Nix ClinicComment on above:Performed By: #### CBC-D, CMP, UAFLX, ENA6, *GAGE-T, ACAX3, PCR-R, C3-C4, ESRCRP, VD25, CK, HBCA, HBSAB, CCP, RHF #### [facility] [address] [facility], [address] ALT [Catalytic activity/Vol]57 U/LHigh(1 - 35)Nix ClinicComment on above:Performed By: #### CBC-D, CMP, UAFLX, ENA6, *GAGE-T, ACAX3, PCR-R, C3-C4, ESRCRP, VD25, CK, HBCA, HBSAB, CCP, RHF #### [facility] [address] [facility], [address] AST [Catalytic activity/Vol]27 U/LNormal(15 - 46)Nix ClinicComment on above:Performed By: #### CBC-D, CMP, UAFLX, ENA6, *GAGE-T, ACAX3, PCR-R, C3-C4, ESRCRP, VD25, CK, HBCA, HBSAB, CCP, RHF #### [facility] [address] [facility], [id number] Bilirubin [Mass/Vol]0.4 mg/dLNormal(0.2 - 1.3)Nix ClinicComment on above:Performed By: #### CBC-D, CMP, UAFLX, ENA6, *GAGE-T, ACAX3, PCR-R, C3-C4, ESRCRP, VD25, CK, HBCA, HBSAB, CCP, RHF #### [facility] [address] [place], [place] [address]. [facility], [id number] Calcium [Mass/Vol]9.6 mg/dLNormal(8.6 - 10.6)Nix ClinicComment on above:Performed By: #### CBC-D, CMP, UAFLX, ENA6, *GAGE-T, ACAX3, PCR-R, C3-C4, ESRCRP, VD25, CK, HBCA, HBSAB, CCP, RHF #### [facility] [address] [facility], [id number] Chloride [Moles/Vol]110 mmol/LHigh(98 - 107)Nix ClinicComment on above:Performed By: #### CBC-D, CMP, UAFLX, ENA6, *GAGE-T, ACAX3, PCR-R, C3-C4, ESRCRP, VD25, CK, HBCA, HBSAB, CCP, RHF #### [facility] [address] [facility], [id number] CO2 [Moles/Vol]24 mmol/LNormal(22 - 30)[facility] Comment on above:Performed By: #### CBC-D, CMP, UAFLX, ENA6, *GAGE-T, ACAX3, PCR- R, C3-C4, ESRCRP, VD25, CK, HBCA, HBSAB, CCP, RHF #### [facility] [address] [facility], [id number] Creatinine [Mass/Vol]0.62 mg/dLNormal(0.52 - 1.04)[facility] HospitalComment on above:Performed By: #### CBC-D, CMP, UAFLX, ENA6, *GAGE-T, ACAX3, PCR-R, C3-C4, ESRCRP, VD25, CK, HBCA, HBSAB, CCP, RHF #### [facility] [address] [facility], [id number] GFR by [id number] ML/M1.7Normal(60.0)[facility] Comment on above:Performed By: #### CBC-D, CMP, UAFLX, ENA6, *GAGE-T, ACAX3, PCR- R, C3-C4, ESRCRP, VD25, CK, HBCA, HBSAB, CCP, RHF #### [facility] [address] [facility], [id number] Glucose [Mass/Vol]91 mg/dLNormal(74 - 106)[facility] Comment on above:Performed By: #### CBC-D, CMP, UAFLX, ENA6, *GAGE-T, ACAX3, PCR- R, C3-C4, ESRCRP, VD25, CK, HBCA, HBSAB, CCP, RHF #### [facility] [address] [facility], [address] Potassium [Moles/Vol]4.5 mmol/LNormal(3.5 - 5.1)Nix ClinicComment on above:Performed By: #### CBC-D, CMP, UAFLX, ENA6, *GAGE-T, ACAX3, PCR-R, C3-C4, ESRCRP, VD25, CK, HBCA, HBSAB, CCP, RHF #### [facility] [address] [facility], [id number] Protein [Mass/Vol]6.9 g/dLNormal(6.3 - 8.2)[facility] Comment on above:Performed By: #### CBC-D, CMP, UAFLX, ENA6, *GAGE-T, ACAX3, PCR- R, C3-C4, ESRCRP, VD25, CK, HBCA, HBSAB, CCP, RHF #### [facility] [address] [facility], [address] Sodium [Moles/Vol]137 mmol/LNormal(137 - 145)Nix ClinicComment on above:Performed By: #### CBC-D, CMP, UAFLX, ENA6, *GAGE-T, ACAX3, PCR-R, C3-C4, ESRCRP, VD25, CK, HBCA, HBSAB, CCP, RHF #### [facility] [place] [facility], [phone] Urea nitrogen [Mass/Vol]14 mg/dLNormal(4 - 25)Nix ClinicComment on above:Performed By: #### CBC-D, CMP, UAFLX, ENA6, *GAGE-T, ACAX3, PCR-R, C3-C4, ESRCRP, VD25, CK, HBCA, HBSAB, CCP, RHF #### [facility] [address] [facility], [phone] CPKon [id number] [Catalytic activity/Vol]30 U/LNormal (30 - 135)Nix ClinicComment on above:Performed By: #### CBC-D, CMP, UAFLX, ENA6, *GAGE-T, ACAX3, PCR-R, C3-C4, ESRCRP, VD25, CK, HBCA, HBSAB, CCP, RHF #### [facility] [address] [facility], [phone] HEP B CORE AB, TOTALon [id number] B CORE ABNegative Normal(NEG - NEG)Superior ClinicComment on above:Performed By: #### CBC-D, CMP, UAFLX, ENA6, *GAGE-T, ACAX3, PCR-R, C3-C4, ESRCRP, VD25, CK, HBCA, HBSAB, CCP, RHF #### [facility] [address] [facility], [id number] HEP B SURF ABon [id number] B SURF ABNegativeNormal (NEG - NEG)Superior ClinicComment on above:Performed By: #### CBC-D, CMP, UAFLX, ENA6, *GAGE-T, ACAX3, PCR-R, C3-C4, ESRCRP, VD25, CK, HBCA, HBSAB, CCP, RHF #### [facility] [address] [facility], [phone] PROTEIN AND CREATININE (RANDOM)on 70-49-1756Uwnsofxhvk [Mass/Vol]62.8 mg/dLNormal(20 - 320)Superior ClinicComment on above:Performed By: #### CBC-D, CMP, UAFLX, ENA6, *GAGE-T, ACAX3, PCR-R, C3-C4, ESRCRP, VD25, CK, HBCA, HBSAB, CCP, RHF #### [facility] [address] [facility], [phone] Protein (U) [Mass/Vol]5.0 mg/dLNormal(0.0 - 12.0)Nix ClinicComment on above:Result Comment: PROTEIN, URINE = < 5.0 MG/DL PROTEIN, URINE MIN DETECTION = 5.0 MG/DLPerformed By: #### CBC-D, CMP, UAFLX, ENA6, *GAGE-T, ACAX3, PCR-R, C3-C4, ESRCRP, VD25, CK, HBCA, HBSAB, CCP, RHF #### [facility] [address] [facility], [phone] URINE PROTEIN/CREAT RATIO80 MG/G CRNormal(21 - 161) Nix ClinicComment on above:Performed By: #### CBC-D, CMP, UAFLX, ENA6, *GAGE- T, ACAX3, PCR-R, C3-C4, ESRCRP, VD25, CK, HBCA, HBSAB, CCP, RHF #### [facility] [address] [facility], [address] RF FACTORon 34-30-0922UG FACTOR<9Normal(0 - 12)Nix ClinicComment on above:Result Comment: RF FACTOR = LESS THAN 9 IU/ML RF FACTOR MIN. DETECTION = 9 IU/ML.Performed By: #### CBC-D, CMP, UAFLX, ENA6, *GAGE-T, ACAX3, PCR-R, C3-C4, ESRCRP, VD25, CK, HBCA, HBSAB, CCP, RHF #### [facility] [address] [facility], [address] SED RATE - CRPon [id number] EXTENDED RANGE<0.30Normal (0.00 - 5.00)Nix ClinicComment on above:Performed By: #### CBC-D, CMP, UAFLX, ENA6, *GAGE-T, ACAX3, PCR-R, C3-C4, ESRCRP, VD25, CK, HBCA, HBSAB, CCP, RHF #### [facility] [address] [facility], [address] SED RATE WEST.8 MM/HRNormal(0 - 25)Nix ClinicComment on above:Performed By: #### CBC-D, CMP, UAFLX, ENA6, *GAGE-T, ACAX3, PCR-R, C3- C4, ESRCRP, VD25, CK, HBCA, HBSAB, CCP, RHF #### [facility] [address] [facility], [address] URINALYSIS WITH REFLEX CULTUREon [id number] NegativeNormal(NONE - NEG)Nix ClinicComment on above:Performed By: #### CBC- D, CMP, UAFLX, ENA6, *GAGE-T, ACAX3, PCR-R, C3-C4, ESRCRP, VD25, CK, HBCA, HBSAB, CCP, RHF #### [facility] [address] [facility], [address] BACTERIAOCCNormal(NONE - OCC)Nix ClinicComment on above:Performed By: #### CBC-D, CMP, UAFLX, ENA6, *GAGE-T, ACAX3, PCR-R, C3-C4, ESRCRP, VD25, CK, HBCA, HBSAB, CCP, RHF #### [facility] [address] [facility], [address] Bilirubin Ql (U)NegativeNormal(NEG)Nix ClinicComment on above:Performed By: #### CBC-D, CMP, UAFLX, ENA6, *GAGE-T, ACAX3, PCR-R, C3- C4, ESRCRP, VD25, CK, HBCA, HBSAB, CCP, RHF #### [facility] [address] [facility], [address] CHARACTERCLEARNormal(CLEAR - HAZY)Nix ClinicComment on above:Performed By: #### CBC-D, CMP, UAFLX, ENA6, *GAGE-T, ACAX3, PCR-R, C3- C4, ESRCRP, VD25, CK, HBCA, HBSAB, CCP, RHF #### [facility] [facility], [address] Color (U)P YELNormal(P YEL - L AMB)Nix ClinicComment on above:Performed By: #### CBC-D, CMP, UAFLX, ENA6, *GAGE-T, ACAX3, PCR-R, C3- C4, ESRCRP, VD25, CK, HBCA, HBSAB, CCP, RHF #### [facility] [address] [place], [place] [address]or Rd. [facility], [address] Glucose Ql (U)NegativeNormal(NEG)Nix ClinicComment on above:Performed By: #### CBC-D, CMP, UAFLX, ENA6, *GAGE-T, ACAX3, PCR-R, C3-C4, ESRCRP, VD25, CK, HBCA, HBSAB, CCP, RHF #### [facility] [address] [place], [place] [address]or Rd. [facility], [address] Ketones Ql (U)NegativeNormal(NEG)Nix ClinicComment on above:Performed By: #### CBC-D, CMP, UAFLX, ENA6, *GAGE-T, ACAX3, PCR-R, C3-C4, ESRCRP, VD25, CK, HBCA, HBSAB, CCP, RHF #### [facility] [address] [place], [place] [address]or Rd[address] [facility], [address] LEUK. ESTERASENegativeNormal(NEG)Nix ClinicComment on above:Performed By: #### CBC-D, CMP, UAFLX, ENA6, *GAGE-T, ACAX3, PCR-R, C3-C4, ESRCRP, VD25, CK, HBCA, HBSAB, CCP, RHF #### [facility] [address] [place], [place] [address]or Rd. [facility], [address] Mucus Ql (Urine sed)OCCNormal(NONE - OCC)[facility] Comment on above:Performed By: #### CBC-D, CMP, UAFLX, ENA6, *GAGE-T, ACAX3, PCR- R, C3-C4, ESRCRP, VD25, CK, HBCA, HBSAB, CCP, RHF #### [facility] [address] [place], [place] [address] Rd. [facility], [address] Nitrite Ql (U)NegativeNormal(NEG)Nix ClinicComment on above:Performed By: #### CBC-D, CMP, UAFLX, ENA6, *GAGE-T, ACAX3, PCR-R, C3-C4, ESRCRP, VD25, CK, HBCA, HBSAB, CCP, RHF #### [facility] [address] [place], [place] [address]or Rd. [facility], [phone] OCCULT BLD.NegativeNormal(NEG)Nix ClinicComment on above:Performed By: #### CBC-D, CMP, UAFLX, ENA6, *GAGE-T, ACAX3, PCR-R, C3-C4, ESRCRP, VD25, CK, HBCA, HBSAB, CCP, RHF #### [facility] [address] [place], [place] [address] [facility], [address] pH (U)5.0 [pH]Normal(5.0 - 9.0)Nix ClinicComment on above:Performed By: #### CBC-D, CMP, UAFLX, ENA6, *GAGE-T, ACAX3, PCR-R, C3-C4, ESRCRP, VD25, CK, HBCA, HBSAB, CCP, RHF #### [facility] [address] [place], [place] [address] [facility], [address] REFLEX CULTURE ADDEDNONormal()Nix ClinicComment on above:Performed By: #### CBC-D, CMP, UAFLX, ENA6, *GAGE-T, ACAX3, PCR-R, C3-C4, ESRCRP, VD25, CK, HBCA, HBSAB, CCP, RHF #### [facility] [address] [place], [place] [address] Rd[address] [facility], [address] SP. GRAVITY1.011Normal(1.001 - 1.035)[facility] Comment on above:Performed By: #### CBC-D, CMP, UAFLX, ENA6, *GAGE-T, ACAX3, PCR- R, C3-C4, ESRCRP, VD25, CK, HBCA, HBSAB, CCP, RHF #### [facility] [address] [place], [place] [address] Rd[address] [facility], [address] SQUAMOUS EPIOCCNormal(NONE - OCC)Nix ClinicComment on above:Performed By: #### CBC-D, CMP, UAFLX, ENA6, *GAGE-T, ACAX3, PCR-R, C3-C4, ESRCRP, VD25, CK, HBCA, HBSAB, CCP, RHF #### [facility] [address] [place] [address] Rd. [facility], [address] UR. RBCNONENormal(0 - 2)Nix ClinicComment on above: Performed By: #### CBC-D, CMP, UAFLX, ENA6, *GAGE-T, ACAX3, PCR-R, C3-C4, ESRCRP, VD25, CK, HBCA, HBSAB, CCP, RHF #### [facility] [address] [place] [address] Rd. [facility], [address] UR. WBC0-4Normal(0 - 4)Nix ClinicComment on above: Performed By: #### CBC-D, CMP, UAFLX, ENA6, *GAGE-T, ACAX3, PCR-R, C3-C4, ESRCRP, VD25, CK, HBCA, HBSAB, CCP, RHF #### [facility] [address] [place], [place] [address] Rd[address] [facility], [address] Urobilinogen (U) [Mass/Vol]0.2 mg/dLNormal(0.2 - <2.0) Nix ClinicComment on above:Performed By: #### CBC-D, CMP, UAFLX, ENA6, *GAGE- T, ACAX3, PCR-R, C3-C4, ESRCRP, VD25, CK, HBCA, HBSAB, CCP, RHF #### [facility] [address] [facility], [address] VITAMIN D, 25 HYDROXYon 14-27-0715MGGIGCV D, 2536.9 NG/MLNormal(30.0 - 100.0)[facility] HospitalComment on above:Result Comment: * * * VITAMIN D, 25 HYDROXY GENERAL GUIDELINE * * * DEFICIENCY = < OR = 20.0 NG/ML INSUFFICIENCY = 20.1 - 29.9 NG/ML SUFFICIENCY = 30.0 - 100.0 NG/ML TOXICITY = > 100.1 NG/MLPerformed By: #### CBC-D, CMP, UAFLX, ENA6, *GAGE-T, ACAX3, PCR-R, C3-C4, ESRCRP, VD25, CK, HBCA, HBSAB, CCP, RHF #### [facility] [address] [facility], [address] Office Visiton [id number]-up [id number] Franklin Leiva 1990 Provider Department Center 06/10/2024 BRISEIDA LEON Family History Problem Relation Age of Onset Other Mother Heart failure Maternal Grandmother Atrial fibrillation Maternal Grandmother Other Maternal Great-Grandmother Family Status - Relation Status Age at Mother Maternal Grandmother Maternal Great-Grandmother Other Level of Service:74[address] HI OFFICE/OUTPATIENT ESTABLISHED LOW [facility] 20 [facility] CenterOffice Visiton [id number]-up visit [id number] Franklin Leiva 1990 Provider Department Center 05/03/2024 BRISEIDA LEON Family History Problem Relation Age of Onset Other Mother Heart failure Maternal Grandmother Atrial fibrillation Maternal Grandmother Family Status - Relation Status Age at Mother Maternal Grandmother Level of Service:44297 HI OFFICE/OUTPATIENT NEW MODERATE MDM 45 MINUTESNormal [facility] Office/Clinic Noteon 74-41-8580Jqkkfoz Surgery Office/Clinic NoteChief Complaint post operative follow up HPI Staff [...] swallowing difficulties, no hearing loss, no ear infection(s),no nose bleeds. Cardiovascular: normal blood pressure, no [...] NIKOLAI HENRY, KASIA Hill Only if needed [address] [place] [address]- Additional Instructions: Problem List/Past Medical History Ongoing [...] Recorded SARS-CoV-2 (COVID-19) mRNA BNT-162b2 vax 07/13/2020 RecordedNormSamaritan North Health CenterComment on above:Result Comment: Electronically Signed By: NIKOLAI HENRY, Po Mackey\.br\Date and Time Signed: 12/01/22 13:04 EDTAmbulatory Visit Summaryon 64-18-3174Gezxwvfemv Visit Summary FRANKLIN LEIVA :1990 Visit Date:11/12/2022 [...] tablet, disintegrating) 1 Tablets By Mouth 4 timesa day Unchanged nabumetone (nabumetone 500 mg Tab) [...] abdominal pain Rt flank pain Symptomatic cholelithiasis [facility] Hospital[facility]on 11-09-2022 Pathology [id number]#1.00CD:[address] [place], [place] [address]Operative Reporton 59-10-9313Kzgfephxn Report [id number]#1.00CD:127NoGalion HospitalPREG HCG QUALon 26-06-1435WSLJYSVYM, QUALNegativeNormalNEGATIVEThe [facility] GeneralComment on above:Performed By: #### PREG #### [facility] [address] [place] [address] Dr. Krys Bledsoe for Procedure/Surgeryon 16-39-6599Fzoygez for Procedure/[id number]#1.00CD:[address] [place], [place] [address]Pre-Certification Formon 27-71-4519Acn-Certification Form [id number]#1.00CD:127NormSamaritan North Health CenterAmbulatory Visit Summaryon 01-01-9944Splgbxfhsh Visit Summary FRANKLIN LEIVA :1990 Visit Date:10/08/2022 [...] tablet, disintegrating) 1 Tablets By Mouth 4 timesa day Unchanged nabumetone (nabumetone 500 mg Tab) [...] Right sided abdominal pain Rt flank pain [facility] HospitalGeneral Surgery Office/Clinic Noteon 51-84-6352Iwgpxdx Surgery Office/Clinic NoteChief Complaint EGD follow up HPI Staff 7 [...] swallowing difficulties, no hearing loss, no ear infection(s),no nose bleeds. Cardiovascular: normal blood pressure, no [...] Daily, # 90 cap(s), Refills(s) 1, [id number] 157.4, cm, 09/26/22 10:43:00 EDT, Height/Length Dosing, 91.7, kg, 09/26/22 10:43:00 EDT, Weight Dosing E&M of Est. Patient Moderate 30-39 Min 16340 2. Hiatal hernia with GERD, (K44.9: Diaphragmatic hernia without obstruction or gangrene)Diaphragmatic hernia without obstruction or gangrene continue Nexium and Carafate; low fat diet Ordered: esomeprazole, 40 mg = 1 cap(s), Oral, Daily, # 90 cap(s), Refills(s) 1, [id number], 157.4, cm, 09/26/22 10:43:00 EDT, Height/Length Dosing, 91.7, kg, 09/26/22 10:43:00 EDT, Weight Dosing E&M of Est. Patient Moderate 30-39 Min 64987 3. 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 Patient Moderate 30-39 Min 44561 Follow-up No qualifying data available Problem List/Past [...] month, 09/26/2022 Substance Ab (more content not included)...[facility] Comment on above:Result Comment: Electronically Signed By: NIKOLAI HENRY, Po Moore\Date and Time Signed: 10/08/22 15:53 EDTRAD - MRI Reporton 72-26-8705EAP - MRI [id number]#1.00CD:[address] [place], [place] [address]Pathology Noteon 49-97-9360Vbqussmzp Note [id number]#1.00CD:[address] [place], [place] [address]MRI ABDOMEN WO CONon 02-82-5717AAQ ABDOMEN WO CONEXAMINATION: MRI ABDOMEN WO CON HISTORY: Right upper [...] Electronically authenticated by: VERONICA VELARDE Date: 2022-10-06 08:[address] [place], [place] [address]Operative Reporton 22-54-4962Zsxrfmawe Report [id number]#1.00CD:[address] [place], [place] [address]PREG HCG QUALon 19-12-7946DKCBNUWKR, QUALNegativeNormalNEGATIVEThe [facility] GeneralComment on above:Performed By: #### PREG #### [facility] [address] [place] [address] Dr. Krys Anand Reportson 43-29-0483Iug Reports [id number]:127[facility]eral[facility] AUTO DIFFon 38-53-5511OZAK #0.0 103/ulNormal0.0-0.1The [facility] GeneralComment on above:Performed By: #### CBC #### [facility] [address] [place] [address] Dr. Krys DiazBasophils/100 WBC (Bld)0.5 %Normal0.2-2.0[facility] Comment on above:Performed By: #### CBC #### [facility] [address] [place] [address] Dr. Krys Goodson #0.0 103/ulNormal0.0-0.7The [facility] GeneralComment on above: Performed By: #### CBC #### [facility] [address] [place] [address] Dr. Krys Jimenezosinophils/100 WBC (Bld)0.6 %Critically low0.9-7.0The [facility] GeneralComment on above:Performed By: #### CBC #### [facility] [address] [place] [address] Dr. Krys Jimenezrythrocyte distribution width (RBC) [Ratio]12.8 %Mmvazg45.0-15.0 [facility]itan HospitalComment on above:Performed By: #### CBC #### [facility] [address] [place] [address] Dr. Krys Goodatocrit (Bld) [Volume fraction]40.0 %Erbyal74.0-48.0Samaritan HospitalComment on above:Performed By: #### CBC #### [facility] [address] [place] [address] Dr. Yilan ChangHemoglobin (Bld) [Mass/Vol]13.4 g/oXHyuvit02.0-16.0The [facility] GeneralComment on above:Performed By: #### CBC #### [facility] [address] [place] [address] Dr. Krys Pardon #0.03 10e3/ulNormal0.00-0.03The [facility] GeneralComment on above:Performed By: #### CBC #### [facility] [address] [place] [address] Dr. Krys Padron %0.5 %Normal0.0-0.5The [facility] GeneralComment on above: Performed By: #### CBC #### [facility] [address] [place] [address] Dr. Krys Braga #1.7 103/ulNormal1.2-3.8The [facility] GeneralComment on above:Performed By: #### CBC #### [facility] [address] [place] [address] Dr. Krys Velasquezhocytes/100 WBC (Bld)26.7 %Ixapxj82.5-60.0The [facility] GeneralComment on above:Performed By: #### CBC #### [facility] [address] [place] [address] Dr. Krys KyleUAL DIFF REQNONormalThe [facility] GeneralComment on above: Performed By: #### CBC #### [facility] [address] [place] [address] Dr. Krys Berger (RBC) [Entitic mass]30.8 gzVcdwvd49.7-34.0The [facility] GeneralComment on above:Performed By: #### CBC #### [facility] [address] [place] [address] Dr. Krys Berger (RBC) [Mass/Vol]33.5 g/qBVtqkrl72.9-35.2The [facility] GeneralComment on above:Performed By: #### CBC #### [facility] [address] [place] [address] Dr. Krys Chisholm (RBC) [Entitic vol]92.0 yOXuifke54.0-99.0The [facility] GeneralComment on above:Performed By: #### CBC #### [facility] [address] [place] [address] Dr. Krys Galvan #0.5 103/ulNormal0.3-0.8The [facility] GeneralComment on above:Performed By: #### CBC #### [facility] [address] [place] [address] Dr. Krys Whitneyocytes/100 WBC (Bld)7.9 %Normal1.7-12.0The [facility] Comment on above:Performed By: #### CBC #### [facility] [address] [place] [address] Dr. Krys Burns #4.1 103/ulNormal1.4-6.5The [facility] GeneralComment on above:Performed By: #### CBC #### [facility] [address] [place] [address] Dr. Krys Mezautrophils/100 WBC (Bld)63.8 %Kuklod54.0-75.0The [facility] GeneralComment on above:Performed By: #### CBC #### [facility] [address] [place] [address] Dr. Krys Desouzalet mean volume (Bld) [Entitic vol]10.1 fLNormal9.5-13.5The [facility] GeneralComment on above:Performed By: #### CBC #### [facility] [address] [place] [address] Dr. Krys DiazPLT222 103/olDvnkdq323-442Bjl [facility] GeneralComment on above: Performed By: #### CBC #### [facility] [address] [place] [address] Dr. Krys DiazRBC4.35 106/ulNormal4.20-5.40The [facility] GeneralComment on above:Performed By: #### CBC #### [facility] [address] [address] [address] Krys DiazWBC6.3 103/ulNormal4.0-11.0The [facility] GeneralComment on above: Performed By: #### CBC #### [facility] [address] [address] [address] Krys DiazLIPASEon 80-66-2673Hergog [Catalytic activity/Vol]85.0 U/LNormal 73.0-393.0The [facility] GeneralComment on above:Performed By: #### BMP, LIVER, LIPA ####[facility] [address] [address]Dr. Krys DiazLIVER PROFILEon 76-50-7803Yfqqdpk [Mass/Vol]3.6 g/dLNormal 3.4-5.0The [facility] Hospitalment on above:Performed By: #### BMP, LIVER, LIPA ####[facility] [address] [address]Dr. Krys DiazAlbumin/Globulin [Mass ratio]0.9 {ratio}NormalThe [facility] Comment on above:Performed By: #### BMP, LIVER, LIPA ####[facility] [address] [address]Dr. Krys ChangALP [Catalytic activity/Vol]63 U/YYrkvpk72-656Mvf [facility] Hospitalment on above:Performed By: #### BMP, LIVER, LIPA ####[facility] [address] [address]Dr. Krys DiazALT [Catalytic activity/Vol]65 U/L Critically hdwn32-07Wlt [facility] Hospitalment on above:Performed By: #### BMP, LIVER, LIPA ####[facility] [address] [address]Dr. Krys ChangAST [Catalytic activity/Vol]35 U/DYtrkwc07-70Lxf [facility] Hospitalment on above:Performed By: #### BMP, LIVER, LIPA ####[facility] [address] [address]Dr. Krys DiazBILI, CONJUGATED0.1 mg/dLNormal0.0-0.2The [facility] GeneralComment on above:Performed By: #### BMP, LIVER, LIPA ####[facility] [address] [address]Dr. Krys ChangBilirubin [Mass/Vol]0.5 mg/dL Normal0.2-1.0The [facility] GeneralComment on above:Performed By: #### BMP, LIVER, LIPA ####[facility] [address] [address]Dr. Krys ChangGlobulin (S) [Mass/Vol]3.9 g/dLNormalThe [facility] Comment on above:Performed By: #### BMP, LIVER, LIPA ####[facility] [address] [address]Dr. Krys ChangProtein [Mass/Vol]7.5 g/dLNormal6.4-8.2The [facility] GeneralComment on above:Performed By: #### BMP, LIVER, LIPA ####[facility] [address] [address]Dr. Krys DiazPROF CHEM 8 (BAS METB)on 09-29-2022 Anion gap [Moles/Vol]9.5 mmol/LNormalSamaritan HospitalComment on above: Performed By: #### BMP, LIVER, LIPA #### [facility] [address] [address] [address] Krys DiazCalcium [Mass/Vol]9.0 mg/dLNormal8.5-10.1[facility] Comment on above:Performed By: #### BMP, LIVER, LIPA #### [facility] [address] [address] [address] Krys DiazChloride [Moles/Vol]106 mmol/FSazcbc51-376Fxt [facility] Comment on above:Performed By: #### BMP, LIVER, LIPA #### [facility] [address] [address] [address] Krys DiazCO2 [Moles/Vol]27.3 mmol/IZxgpvs03.0-32.0The [facility] Comment on above:Performed By: #### BMP, LIVER, LIPA #### [facility] [address] [address] [address] Krys DiazCreatinine [Mass/Vol]0.80 mg/dLNormal0.55-1.02[facility] HospitalComment on above:Performed By: #### BMP, LIVER, LIPA #### [facility] [address] [address] [address] Krys JimenezGFR-AF AFGHAN>60Normal>=60The [facility] GeneralComment on above:Performed By: #### BMP, LIVER, LIPA #### [facility] [address] [place] [address] Dr. Krys JimenezGFR-NON AF AFGHAN>60Normal>=60The [facility] GeneralComment on above:Performed By: #### BMP, LIVER, LIPA #### [facility] [address] [place] [address] Dr. Krys DiazGlucose [Mass/Vol]100 mg/eVLfwylg52-545KhaSamaritan Hospital Comment on above:Performed By: #### BMP, LIVER, LIPA #### [facility] [address] [place] [address] Dr. Krys DiazPotassium [Moles/Vol]3.8 mmol/LNormal3.5-5.1[facility] Comment on above:Performed By: #### BMP, LIVER, LIPA #### [facility] [address] [address] [address] Krys Peguerodium [Moles/Vol]139 mmol/IOvxfrd626-465ChrSamaritan Hospital Comment on above:Performed By: #### BMP, LIVER, LIPA #### [facility] [address] [place] [address] Dr. Krys DiazUrea nitrogen [Mass/Vol]8.0 mg/dLNormal7.0-18.0[facility] HospitalComment on above:Performed By: #### BMP, LIVER, LIPA #### [facility] [address] [place] [address] Dr. Krys DiazUrea nitrogen/Creatinine [Mass ratio]10.0 mg/mgGrant HospitalComment on above:Performed By: #### BMP, LIVER, LIPA #### [facility] [address] [address] [address] Krys DiazAmbulatory Visit Summaryon [id number] Visit Summary FRANKLIN LEIVA :1990 Visit Date:09/26/2022 [...] tablet, disintegrating) 1 Tablets By Mouth 4 timesa day Contact prescribing physician if questions or [...] 37.0-37.9, adult Cholelithiasis Eczema Left ovarian cyst [facility]Cons[facility]/Surgeryon [id number] for Procedure/Surgery [id number]:[address] [place], [place] [address]Pre-Certification Formon [id number]-Certification Form [id number]:127[facility] Note-Physicianon 50-32-0867BH Note-Physician [id number]#1.00CD:127[facility] HospitalPhys[facility] Referralon 97-05-9475Ujdelmtvi Referral [id number]#1.00CD:127[facility] HospitalUS SINGLE QUAD RT UPPERon 16-17-5398SW SINGLE QUAD RT UPPEREXAM: US SINGLE QUAD RT UPPER HISTORY: Cholelithiasis [...] Electronically authenticated by: SCOTTY COLINDRES Date: 2022-09-14 15:[address] [place] [address] ABD/PELV W CONon 57-90-1294QV ABD/PELV W CONEXAMINATION: CT ABD/PELV W CON HISTORY: Right upper [...] Electronically authenticated by: Amber CARRILLO Date: 2022-09-08 23:[facility]FFon 50-60-1767HGCX #0.0 103/ulNormal0.0-0.1The [facility] GeneralComment on above:Performed By: #### CBC #### [facility] [address] [place] [address] Dr. Krys DiazBasophils/100 WBC (Bld)0.3 %Normal0.2-2.0[facility] Comment on above:Performed By: #### CBC #### [facility] [address] [place] [address] Dr. Krys Goodson #0.1 103/ulNormal0.0-0.7The [facility] GeneralComment on above: Performed By: #### CBC #### [facility] [address] [place] [address] Dr. Krys Jimenezosinophils/100 WBC (Bld)0.7 %Critically low0.9-7.0[facility] HospitalComment on above:Performed By: #### CBC #### [facility] [address] [place] [address] Dr. Krys Jimenezrythrocyte distribution width (RBC) [Ratio]12.8 %Seqvlu72.0-15.0 The [facility] GeneralComment on above:Performed By: #### CBC #### [facility] [address] [place] [address] Dr. Krys DiazHematocrit (Bld) [Volume fraction]38.1 %Iyixae71.0-48.0[facility] HospitalComment on above:Performed By: #### CBC #### [facility] [address] [place] [address] Dr. Krys DiazHemoglobin (Bld) [Mass/Vol]12.9 g/bADpdjxt35.0-16.0The [facility] GeneralComment on above:Performed By: #### CBC #### [facility] [address] [place] [address] Dr. Krys Padron #0.01 10e3/ulNormal0.00-0.03The [facility] GeneralComment on above:Performed By: #### CBC #### [facility] [address] [place] [address] Dr. Krys Padron %0.1 %Normal0.0-0.5The [facility] GeneralComment on above: Performed By: #### CBC #### [facility] [address] [place] [address] Dr. Krys Braga #2.4 103/ulNormal1.2-3.8The [facility] GeneralComment on above:Performed By: #### CBC #### [facility] [address] [place] [address] Dr. Krys Velasquezhocytes/100 WBC (Bld)35.8 %Hiwbvk01.5-60.0The [facility] GeneralComment on above:Performed By: #### CBC #### [facility] [address] [place] [address] Dr. Krys KyleUAL DIFF REQNONormalThe [facility] GeneralComment on above: Performed By: #### CBC #### [facility] [address] [place] [address] Dr. Krys Berger (RBC) [Entitic mass]30.0 neUlbwmx40.7-34.0The [facility] GeneralComment on above:Performed By: #### CBC #### [facility] [address] [place] [address] Dr. Krys Berger (RBC) [Mass/Vol]33.9 g/qKGbsjlz89.9-35.2The [facility] GeneralComment on above:Performed By: #### CBC #### [facility] [address] [place] [address] Dr. Krys Chisholm (RBC) [Entitic vol]88.6 fDAlcmpr17.0-99.0The [facility] GeneralComment on above:Performed By: #### CBC #### [facility] [address] [place] [address] Dr. Krys Galvan #0.5 103/ulNormal0.3-0.8The [facility] GeneralComment on above:Performed By: #### CBC #### [facility] [address] [address] [address] Krys Whitneyocytes/100 WBC (Bld)7.0 %Normal1.7-12.0[facility] Comment on above:Performed By: #### CBC #### [facility] [address] [place] [address] Dr. Krys Burns #3.7 103/ulNormal1.4-6.5The [facility] GeneralComment on above:Performed By: #### CBC #### [facility] [address] [place] [address] Dr. Krys Mezautrophils/100 WBC (Bld)56.1 %Kfbcwo86.0-75.0The [facility] GeneralComment on above:Performed By: #### CBC #### [facility] [address] [place] [address] Dr. Krys Paredes mean volume (Bld) [Entitic vol]8.9 fLCritically low 9.5-13.5The [facility] GeneralComment on above:Performed By: #### CBC #### [facility] [address] [place] [address] Dr. Krys DiazPLT287 103/wvOlsret771-959Olp [facility] GeneralComment on above: Performed By: #### CBC #### [facility] [address] [place] [address] Dr. Krys DiazRBC4.30 106/ulNormal4.20-5.40The [facility] GeneralComment on above:Performed By: #### CBC #### [facility] [address] [place] [address] Dr. Krys DiazWNAVID6.7 103/ulNormal4.0-11.0The [facility] GeneralComment on above: Performed By: #### CBC #### [facility] [address] [place] [address] Dr. Krys Kim URINE PROFILEon 31-58-5004Jjkdadidm Ql (U)SMALLAbnormal NEGATIVESamaritan HospitalComment on above:Performed By: #### YAHIR ERUR #### [facility] [address] [place] [address] Dr. Krys DiazClarity (U)CLEARNormalCLEARSamaritan HospitalComment on above: Performed By: #### YAHIR ERUR #### [facility] [address] [place] [address] Dr. Krys DiazColor (U)YELLOWNormalYELLOWSamaritan HospitalComment on above: Performed By: #### YAHIR ERUR #### [facility] [address] [place] [address] Dr. Krys MejíaNUNU micrscopic examination will be performed if indicated. NormalThe [facility] GeneralComment on above:Performed By: #### YAHIR ERUR #### [facility] [address] [place] [address] Dr. Krys DiazGlucose Ql (U)NegativeNormalNEGATIVESamaritan HospitalComment on above:Performed By: #### YAHIR ERUR #### [facility] [address] [place] [address] Dr. Krys DiazHemoglobin Ql (U)LARGEAbnormalNEGATIVEOhio State East Hospital on above:Performed By: #### YAHIR ERUR #### [facility] [address] [place] [address] Dr. Krys DiazKetones Ql (U)NegativeNormalNEGATIVESamaritan HospitalComment on above:Performed By: #### YAHIR ERUR #### [facility] [address] [place] [address] Dr. Krys DiazLEUKOCYTESNegativeNormalNEGATIVESamaritan HospitalComment on above:Performed By: #### KATHI SINCLAIRR #### [facility] [address] [place] [address] Dr. Krys Sarabia Ql (U)NegativeNormalNEGATIVEThe [facility] GeneralComment on above:Performed By: #### KATHI SINCLAIRR #### [facility] [address] [place] [address] Dr. Krys DiazpH (U)5.5 [pH]Normal5-9The [facility] GeneralComment on above: Performed By: #### KATHI SINCLAIRR #### [facility] [address] [place] [address] Dr. Krys DiazProtein (U) [Mass/Vol]30 mg/dLAbnormalNEGATIVE/ TRACEThe [facility] GeneralComment on above:Performed By: #### KATHI SINCLAIRR #### [facility] [address] [place] [address] Dr. Krys DiazSPEC GRAVITY>=1.095Hruxdmgy9.005-<=1.025The [facility] Comment on above:Performed By: #### JORGE SINCLAIR #### [facility] [address] [place] [address] Dr. Krys Cast MICRO INDINDICATEDNormalThe [facility] GeneralComment on above: Performed By: #### KATHI SINCLAIRR #### [facility] [address] [place] [address] Dr. Krys Rothbilinogen Qn (U)1.0 {Paramjit'U}/dLNormal0.2 - 1.0The [facility] GeneralComment on above:Performed By: #### KATHI SINCLAIRR #### [facility] [address] [place] [address] Dr. Krys DiazLIPASEon 94-67-8778Wycodk [Catalytic activity/Vol]82.0 U/LNormal 73.0-393.0The [facility] GeneralComment on above:Performed By: #### CMP, LIPA ####[facility] [address] [address]Dr. Amylan ChangPREG HCG QUALon 30-73-9023YXISNHKPG, QUALNegativeNormalNEGATIVEThe [facility] GeneralComment on above:Performed By: #### PREG ####[facility] [address] [place], [place] [address]Dr. Krys ChangPROF 14(COMP METB)on 69-82-6991Vacryek [Mass/Vol]3.7 g/dLNormal3.4-5.0The [facility] Comment on above:Performed By: #### CMP, LIPA ####[facility] [address] [place], [place] [address]Dr. Krys Diaz Albumin/Globulin [Mass ratio]1.1 {ratio}NormalThe [facility] GeneralComment on above:Performed By: #### CMP, LIPA ####[facility] Jkvntekugs[address] [place], [place] [address]Dr. Krys JoeALP [Catalytic activity/Vol]67 U/L Seohri96-730Oaa [facility] GeneralComment on above:Performed By: #### CMP, LIPA ####[facility] Utwtvobuzv[address] [place], [place] [address]Dr. Krys ChangALT [Catalytic activity/Vol]38 U/PEsoewa76-30Jsz [facility] Comment on above:Performed By: #### CMP, LIPA ####[facility] Dsdzfqmalk[address] [place], [place] [address]Dr. Amyalejandro JoeAnion gap [Moles/Vol]12.4 mmol/LNormalThe [facility] GeneralComment on above:Performed By: #### CMP, LIPA ####[facility] Fagbcyltcj[address] [place], [place] [address]Dr. Krys ChangAST [Catalytic activity/Vol]19 U/MZmpmjv15-36Ray [facility] GeneralComment on above:Performed By: #### CMP, LIPA ####[facility] Xygkswvbki[address] [place], [place] [address]Dr. Amyalejandro Diaz Bilirubin [Mass/Vol]0.4 mg/dLNormal0.2-1.0The [facility] GeneralComment on above: Performed By: #### CMP, LIPA ####[facility] Lyqeymvmtf[address] [place], [place] [address]Dr. Yilan ChangCalcium [Mass/Vol]8.6 mg/dLNormal 8.5-10.1The [facility] GeneralComment on above:Performed By: #### CMP, LIPA ####[facility] Aiyoaukyvo[address] [place], [place] [address]Dr. Yilan ChangChloride [Moles/Vol]105 mmol/ORsdmfq82-730Wuy [facility] Comment on above:Performed By: #### CMP, LIPA ####[facility] Dqpvxrqtxw[address] [place], [place] [address]Dr. Yilan ChangCO2 [Moles/Vol]25.9 mmol/MIhalcj95.0-32.0The [facility] GeneralComment on above: Performed By: #### CMP, LIPA ####[facility] Zumilfvnmp[address] [place], [place] [address]Dr. Yilan ChangCreatinine [Mass/Vol]0.86 mg/dLNormal 0.55-1.02The [facility] GeneralComment on above:Performed By: #### CMP, LIPA ####[facility] Anytpcrzwb[address] [place], [place] [address]Dr. Yilan ChangEGFR-AF AFGHAN>60Normal>=60The [facility] GeneralComment on above: Performed By: #### CMP, LIPA ####[facility] Auhswmhjuz[address] [place], [place] [address]Dr. Yilan ChangEGFR-NON AF AFGHAN>60Normal>=60The [facility] GeneralComment on above:Performed By: #### CMP, LIPA ####[facility] Hwuaghwmzd[address] [place], [place] [address]Dr. Yilan Diaz Globulin (S) [Mass/Vol]3.5 g/dLNormalThe [facility] GeneralComment on above: Performed By: #### CMP, LIPA ####[facility] [address] [place], [place] [address]Dr. Krys ChangGlucose [Mass/Vol]102 mg/cVQjxbnm44-712 The [facility] GeneralComment on above:Performed By: #### CMP, LIPA ####[facility] [address] [address]Dr. Krys Diaz Potassium [Moles/Vol]3.3 mmol/LCritically low3.5-5.1The [facility] GeneralComment on above:Performed By: #### CMP, LIPA ####[facility] [address] [address]Dr. Amyalejandro ChangProtein [Mass/Vol]7.2 g/dLNormal 6.4-8.2The [facility] GeneralComment on above:Performed By: #### CMP, LIPA ####[facility] [address] [address]Dr. Krys ChangSodium [Moles/Vol]140 mmol/LJkjltk896-905Hgp [facility] GeneralComment on above:Performed By: #### CMP, LIPA ####[facility] [address] [address]Dr. Krys ChangUrea nitrogen [Mass/Vol]6.0 mg/dL Critically low7.0-18.0The [facility] GeneralComment on above:Performed By: #### CMP, LIPA ####[facility] [address] [address]Dr. Amylan ChangUrea nitrogen/Creatinine [Mass ratio]7.0 mg/mgNormalThe [facility] GeneralComment on above:Performed By: #### CMP, LIPA ####[facility] [address] [address]Dr. Krys DiazURINE MICROSCOPIC ONLYon 01-97-3039NTCMYDATUKEYTJhjxaewcKWRM SEENSamaritan Hospital Comment on above:Performed By: #### JORGE SINCLAIR #### [facility] [address] [address] [address] Krys Tobias identified Cx Nom (U)NOT INDICATEDNormAultman Alliance Community Hospitale [facility] GeneralComment on above:Performed By: #### YAHIR, ERUR #### [facility] [address] [address] [address] Krys DiazCASTNONE SEENNormalNONE SEENSamaritan HospitalComment on above:Performed By: #### ARASHRO, ERUR #### [facility] [address] [address] [address] Krys DiazCrystals LM Nom (Urine sed)NONE SEENNormalNONE SEENThe [facility] GeneralComment on above:Performed By: #### YAHIR, ERUR #### [facility] [address] [address] [address] Marcano ChangEpithelial cells LM Ql (Urine sed)MODERATEAbnormalNONE SEEN /RARE The [facility] GeneralCommackinac straits hospital on above:Performed By: #### YAHIR, ERUR #### [facility] [address] [address] [address] Krys DiazMUCOUSMODERATEAbnormalNONE SEENSamaritan HospitalCommackinac straits hospital on above:Performed By: #### YAHIR, ERUR #### [facility] [address] [address] [address] Krys DiazHxisyHAM93-66Jhgjlaah0-5Oxn [facility] GeneralCommackinac straits hospital on above: Performed By: #### YAHIR, ERUR #### [facility] [address] [address] [address] Krys DiazWBCNONE SEENNormalNONE SEENSamaritan HospitalCommackinac straits hospital on above: Performed By: #### YAHIR, ERUR #### [facility] [address] [address] [address] Krys Diaz Vital Signs Date TimeVital SignValuePerforming IypdvxgujKisrqxfs65-65-2732 09:36-0400Body puwjom478.5 Deepak Arzate MD Work Phone: NOHawthorn [facility] Psychiatric HospitalPfqufhhoip79-89-7199 09:36-0400Body mass index (BMI) [Ratio]40.24 kg/a0HntvbBarby Arzate MD Work Phone: [facility] HealthLiedbtgppc37-90-4643 09:36-0400Body dyyjrl76.79 kgBarby Arzate MD Work Phone: [facility] HealthHeyikigqst54-02-5220 09:36-0400Diastolic blood negrfdnj39 mm[Hg]Barby Arzate MD Work Phone: [facility] HealthIbdytfhxpy43-95-6059 09:36-0400Heart rate75 /min Barby Arzate MD Work Phone: [facility] HealthXlvzpdyapx53-35-0559 09:36-0400Respiratory rate16 /minBarby Arzate MD Work Phone: [facility] HealthRsvydqkbst54-80-4490 09:36-2145GwA9% (BldA) [Mass fraction]99 %Barby Arzate MD Work Phone: [facility] HealthDpvgmrqbsd64-71-2652 09:36-0400Systolic blood mm[Hg]Barby Arzate MD Work Phone: [facility] HealthTvdakbvgfo36-02-4382 11:30-0400Body mass index (BMI) [Ratio]40.6 kg/m2Johnnygricel Nataprawira DO Work Phone: [facility] HealthGzcxfmcdqa02-61-7465 11:30-0400Body .7 kgMona Nataprawira DO Work Phone: NOHaw[facility] Psychiatric HospitalOiutmduglf96-29-7573 11:30-0400Diastolic blood psxfrhab07 mm[Hg]Barbie Nataprawira DO Work Phone: NOHawth[facility] Psychiatric HospitalUeinoceaeb66-11-8010 11:30-0400Systolic blood vwupzyie674 mm[Hg]Barbie Nataprawira DO Work Phone: [facility] HealthMpeovmjpcf46-08-6184 09:53-0400Body xbljqo818.5 Deepak Arzate MD Work Phone: [facility] HealthNnzgojuhsq48-78-5631 09:53-0400Body mass index (BMI) [Ratio]40.6 kg/z0EyvnjBarby Arzate MD Work Phone: [address] [place], [place] [address] 09:53-0400Body firusq741.7 kgBarby Arzate MD Work Phone: [phone] [place], [place] [address]Huyxsvyxuj64-69-3068 09:53-0400Diastolic blood qwufqdlo26 mm[Hg]Barby Arzate MD Work Phone: [phone])[address] [place], [place] [address]Djwnpkbjoo39-97-2508 09:53-0400Heart rate78 /min Barby Arzate MD Work Phone: 1(555)[address]04-23-2025 09:53-0400Respiratory rate18 /minBarby Arzate MD Work Phone: [phone]04-23-2025 09:53-9801HhN5% (BldA) [Mass fraction]99 %Barby Arzate MD Work Phone: [phone] [place], [place] [address]Ptrybsbofr84-98-7350 09:53-0400Systolic blood mm[Hg]Barby Arzate MD Work Phone: [phone] [place], [place] [address]Dnndfthwwz39-80-7104 10:37-0400Blood Pressure LocationMichael NILL 189-9871Misaid-QgakvVeterans Health Administration 09-26-2022 10:37-0400Diastolic blood ezrkeziz35 mm[Hg]Po NILL 029-6629Lkkvmh-YedmzVeterans Health Administration 09-26-2022 10:37-0400Heart rate80 /minMichael NILL [phone]-WnknmVeterans Health Administration 09-26-2022 10:37-0400Respiratory rate16 /minMichael NILL 103-9060Avygzv-XnjdbVeterans Health Administration 09-26-2022 10:37-0400Systolic blood nvrkhuws208 mm[Hg]Po NILL 021-2504Nctjmz-[facility] [place] Encounters Encounter DateEncounter TypeCare ProviderFacilityStart: 04-05-2025 End: 11-19-9538Odcxjlgurvinder Patterson PT Work Phone: [facility] MedicineStart: 04-05-2025 End: 98-95-4816Mulmjv King Patterson PT Work Phone: [facility] MedicineStart: 04-05-2025 End: 66-84-1060lhtajwjpznKlqhvbz J Martinez PT Work Phone: [facility] MedicineComment on above: Cervicalgia (Primary Dx); Intractable migraine without status migrainosus, unspecified migraine typeStart: 03-29-2025 End: 68-18-2639Zbhoftgurvinder Patterson PT Work Phone: [facility]ational MedicineStart: 03-29-2025 End: 69-69-2936Ysdweggurvinder Patterson PT Work Phone: [facility] MedicineStart: 03-29-2025 End: 86-51-0163JgdavytipUoftcqz J Martinez PT Work Phone: [facility]ational MedicineComment on above: Cervicalgia (Primary Dx); Balance disorderStart: 03-22-2025 End: 88-26-0619Glvhjn King Patterson PT Work Phone: [facility] MedicineStart: 03-22-2025 End: 33-90-5942Rgsqfogurvinder Patterson PT Work Phone: NO [place] Occupational MedicineStart: 03-22-2025 End: 29-61-2934RmakllwiskFalzrjw J Martinez PT Work Phone: [facility] [place] Occupational MedicineComment on above: Cervicalgia (Primary Dx); Intractable migraine without status migrainosus, unspecified migraine type; Balance disorderStart: 12-28-2024 End: 71-03-0258Sgpwkr Denzel Arzate MD Work Phone: [facility] [place] EndocrinologyStart: 12-28-2024 End: 60-20-5075Zojxus Denzel Arzate MD Work Phone: [facility] [place] EndocrinologyStart: 12-28-2024 End: 78-47-3452Mkalqz outpatient visit 25 minutesBarby Arzate MD Work Phone: [facility] [place] EndocrinologyComment on above:Weight gain (Primary Dx); Vitamin D deficiency; Encounter for dietary consultation; Class 3 severe obesity due to excess calories without serious comorbidity with body mass index (BMI) of 40.0 to 44.9 in adult ([facility])Start: 11-09-2024 End: 61-33-4979Rtnznwf encounter statusBarbie Soriano MLD SolutionsrcisAmerican-Alban[employer] Work Phone: [facility] Work Phone: start: 11-09-2024 End: 42-99-6874Yfgcxmjz preventive med est patient 18-39 yrsJohnnygricel Soriano Bamatea Work Phone: noms OBComment on above:Encounter for gynecological examination (general) (routine) with abnormal findings (Primary Dx); Candidiasis of vulva; Vulvar itching; Screening for malignant neoplasm of cervix; Encounter for screening for human papillomavirus (HPV)Start: 09-21-2024 End: 19-88-8617Rtpirigurvinder Arzate MD Work Phone: [facility]oms ENDOCRINOLOGYStart: 09-21-2024 End: 09-63-1619Nxofzm Denzel Arzate MD Work Phone: [facility] ENDOCRINOLOGYStart: 09-21-2024 End: 07-86-1430Cucxaw outpatient new 45 minutesBarby Arzate MD Work Phone: noms ENDOCRINOLOGYComment on above:Weight gain (Primary Dx); Vitamin D deficiency; Encounter for dietary consultation; Class 3 severe obesity due to excess calories without serious comorbidity with body mass index (BMI) of 40.0 to 44.9 in adultStart: 06-10-2024 End: 78-82-7890fcjqsdvtfmYUTTWGOFirelands Regional [facility] Start: 05-03-2024 End: 48-94-4964tsxunileurLGFLNFUFirelands Regional Medical Center [facility] Start: 11-12-2022 End: 54-89-6550crvedbzuriNyxbmvn R NILLFacility:[facility] Hospitaltart: 11-12-2022 End: 92-49-9076Bcxyesu encounter procedureMichael R NILL General Surgery Nill/Said [place] Start: 10-29-2022 End: 78-02-4891bkdybgzosuBN NGUYEN HOY .Facility:H9Vxxgi: 90-69-4899Plejhudhz for other preprocedural examinationDR PO NILL .[facility]: 10-21-2022 End: 89-08-0140vshplqlipaTK NGUYEN HOY .Facility:G8Tdach: 10-21-2022 End: 57-53-5907Jowgpdxst for other preprocedural examinationDR NGUYEN HOY . Facility:H3Bpens: 10-08-2022 End: 11-80-5192bhkqfegdozYfwjjcm R NILLFacility:[facility] Hospitaltart: 10-08-2022 End: 83-26-9333Qpdozno encounter procedureMichael R NILL General Surgery Nill/Said [place] Start: 10-06-2022 End: 77-23-3457mrjrwkstazKO PO NILL .Facility:K5Korad: 10-01-2022 End: 69-93-8335vgttnwovaaHJ PO NILL .Facility:P3Ppdka: 09-29-2022 End: 38-80-5656ooduaxmaykDS PO NILL .Facility:A6Jowzx: 09-26-2022 End: 63-52-0119dqukvqryezKurfele R NILLFacility:[facility] HospitalwalkStart: 09-26-2022 End: 19-99-7856Sdsvqnv encounter procedureMichael R NILL [phone]-HifgbChildren'S Hospital For Rehabilitation General Surgery [place] Start: 16-79-8391kyafphtavgGmttiqx NILLFacility: BellevueStart: 80-84-5632zceqeuslryUiiprsl NILLFacility: Yarelytart: 09-11-2022 End: 15-13-2931pbxghpqyatBS NGUYEN ZAMORANO .Facility:B8Hwdbo: 09-08-2022 End: 54-95-7653rvsheefnkrDG MILADY GRIFFIN .Facility: Procedures DateProcedureProcedure DetailPerforming ClinicianStart: 78-97-0067[facility], APT HPV,RFX 16/18,45Mona J Nataprawira DO Work Phone: start: 74-69-3947Ojfkzq citrullinated peptide antibody Comment on above:Performed By: #### CBC-D, CMP, UAFLX, ENA6, *GAGE-T, ACAX3, PCR- R, C3-C4, ESRCRP, VD25, CK, HBCA, HBSAB, CCP, RHF #### [facility] [address] [facility], [address] Start: 21-24-3353Erriwebemdqn cholecystectomyMichael NILL Start: 22-09-0113Enqacqysuio observation [Identifier] in Cervix by Cyto Judy Arzate MD Work Phone: Start: 99-35-5321ZkogwzvbzsrlcamchteeftpalyWjyptdt NILL None (qualifier value)Po MENCHACA Plan of Treatment DateCare ActivityDetailAuthorStart: 75-12-7575Zxcecegnt for malignant neoplasm of cervixNOMS HealthcareStart: 31-54-8410Griydvmiz for malignant neoplasm of cervixNOMS HealthcareStart: 11-15-2025 End: 36-26-3941Alkabhf encounter procedureNOMS NB OBStart: 58-28-4992Fmllmwnkp for malignant neoplasm of cervixPap SmearNOMS HealthcareStart: 05-03-2025 End: 80-39-7418Ajrsfyt encounter xyryccbwr95/03/2025 10:30 AM EST Office Visit [facility] [address] [place] [address] Barby Arzate MD [address] [place] [address] [facility] EndocrinologyStart: 04-05-2025 End: 47-94-4409eejafmlyuf16/05/2025 7:00 AM EST Treatment [facility] [address] [place] [address] Po Patterson, PT [address] [place] [address] JUNIOR Patrick Occupational MedicineStart: 03-29-2025 End: 73-74-3611jhzqclblqk99/29/2025 7:00 AM EDT Treatment [facility] [address] [place] [address] Po Patterson, PT [address] [place] [address] JUNIOR Patrick Occupational MedicineStart: 90-97-8817PIRBK-19 Vaccine ( season)COVID-19 Vaccine ( season)[facility] HealthcareStart: 50-87-1607Xmynnlgiq vaccinationNOMS Healthcare Start: 12-28-2024 End: 66-21-7215Pnzicar encounter procedureNOMS ENDOCRINOLOGYComment on above: ArrivedStart: 11-09-2024 End: 51-86-5037Zbkalob encounter tovgswiib51/11/2025 11:30 AM EDT Office Visit [facility] [address] [place] [phone] Barbie Dang DO [address] [facility] [address] [address] [facility] NB OBStart: 09-21-2024 End: 76-79-7216Qjctevuqtqrrq AntibodyThyroglobulin Antibody Lab Routine Weight gain Expected: 09/21/2024 (Approximate), Expires: 09/21/2025[facility] Work Phone: Comment on above:Expected: 09/21/2024 (Approximate), Expires: 09/21/2025Start: 09-21-2024 End: 02-06-3806Xbbputu peroxidase antibodyThyroid peroxidase antibody Lab Routine Weight gain Expected: 09/21/2024 (Approximate), Expires: 09/21/2025N[facility] HealthcareComment on above:Expected: 09/21/2024 (Approximate), Expires: 09/21/2025Start: 09-21-2024 End: 40-67-3499Evlgkknmtpv [Units/volume] in Serum or PlasmaTSH Lab Routine Weight gain Expected: 09/21/2024 (Approximate), Expires: 09/21/2025N[facility] HealthcareComment on above:Expected: 09/21/2024 (Approximate), Expires: 09/21/2025Start: 09-21-2024 End: 32-21-1473Mvyrwmngn (T4) free [Mass/volume] in Serum or PlasmaT4, free Lab Routine Weight gain Expected: 09/21/2024 (Approximate), Expires: 09/21/2025N[facility] HealthcareComment on above:Expected: 09/21/2024 (Approximate), Expires: 09/21/2025Start: 09-21-2024 End: 11-52-7893Ucqfbfkwsmidtfre (T3) Free [Mass/volume] in Serum or PlasmaT3, free Lab Routine Weight gain Expected: 09/21/2024 (Approximate), Expires: 09/21/2025N[facility] HealthcareComment on above:Expected: 09/21/2024 (Approximate), Expires: 09/21/2025Start: 09-21-2024 End: 14-04-6331Vihusfl encounter qhknwlhgy10/23/2025 10:00 AM EDT Office Visit [facility] [address] [place] [address] Barby Arzate MD [address] [place] [address] ArrivedNOMS ENDOCRINOLOGYComment on above:Arrived Start: 95-54-3792UPA Vaccines (1 - 3-dose SCDM series)HPV Vaccines (1 - 3-dose SCDM series)[facility] HealthcareStart: 02-08-0238Jewkwvwbf B Vaccines (1 of 3 - 19+ 3-dose series)Hepatitis B Vaccines (1 of 3 - 19+ 3-dose series)[facility] Start: 99-34-8410Lwcgifb of varicella vaccinationVaricella Vaccines (1 of 2 - 13+ 2-dose series)[facility] HealthcareStart: 60-26-6402KWkD/Tdap/Td Vaccines (1 - Tdap)DTaP/Tdap/Td Vaccines (1 - Tdap)[facility] HealthcareStart: 81-16-8474QFB Vaccines (1 of 1 - Standard series)MMR Vaccines (1 of 1 - Standard series)[facility] Immunizations Immunization DateImmunizationNotesCare JcsjmoexKyxeloih65-14-5159JUCL-DeI-1 (COVID-19) mRNA BNT-162b2 vaxMichael NILL General Surgery Htdbnmhj38-50-9258PCQB-MrF-2 (COVID-19) mRNA BNT-162b2 vaxMichael NILL General Surgery [place]NE[place]: Highlighted row has not occurred!84-58-9631amnwlqwfh virus vaccine, unspecified formulationMichael NILL [phone]-KamvyChildren'S [facility] [place] Payers DatePayer CategoryPayerPolicy [id number] Health InsuranceAMBETTER LINDA [id number] 2.16840.1.704041.3.57[id number] 2.840.1.574614.3.57[id number] 2.840.1.068566.3.57[id number] 2.16840.1.780754.3.57[id number] 2.16840.1.908755.3.57[id number] 2.0.1.787973.3.57[id number] 2.16840.1.400505.3.57[id number] 2.16840.1.741104.3.57[id number] 2.16840.1.806606.3.57[id number] 2.16840.1.982643.3.57[id number] 2.16.840.1.630668.3.57[id number] 2.16.840.1.835643.3.579.2.727 Social History DateTypeDetailFacilityStart: 09-26-2022 End: 30-17-5727Wjjjotk smoking statusNever smoked tobacco (finding)[facility] MedCentertart: 94-18-4150Xmmdtty smoking status NeverFishTulane University Medical Centertart: 2023 End: 16-37-8036Mtv Assigned At BirthFemalOhioHealth Marion General Hospitaltart: 80-22-9093Wfdrexi use and exposureSmokeless tobacco non-userNOMS Healthcare Start: 11-67-9726Tzbrytrqq beverage intakeCurrent drinker of alcohol (finding) [facility] HealthcareStart: 2023 End: 66-32-9156Rabieke of Social functionNOMS HealthcareStart: 63-99-4346Ikz assigned at birthNot on fileNOMS HealthcareStart: 71-42-4398Msqlukfiv beverage intakeLifetime non-drinker (finding)[facility] Functional Status ShznEfdyhdqpfgIrufulUhwmjzkt24-37-9245Lqvryaucjy StatusN/AFFayette [facility] Clinical Notes 09-26-2022 to 04-05-2025 Note Date & AbfkVyhuKdtnyiey57-38-3241 History of Present illness Narrative* Po Patterson, PT - 04/05/2025 7:00 AM EST Images from the original note were not included. Franklin Leiva [id number] 04/04/25 Subjective: Phone consult 03/21 34 yof [...] this POC medically necessary. Please sign below. Po Patterson, DScPT, OCS, COMT, AIB-VAM Director Vestibular Rehabilitation documented in this encounterCrittenton Behavioral HealthGnbonmqscb28-37-2905 History of Present illness Narrative* Po Patterson, PT - 03/29/2025 7:00 AM EDT Images from the original note were not included. Franklin Leiva [id number] 03/28/25 Subjective: Phone consult 03/21 34 yof [...] this POC medically necessary. Please sign below. Po Patterson, DScPT, OCS, COMT, AIB-VAM Director Vestibular Rehabilitation documented in this encounterCrittenton Behavioral HealthQhuwnaqeht16-98-6934 History of Present illness Narrative* Po Patterson, PT - 03/22/2025 7:00 AM EDT Franklin Leiva [id number] 03/21/25 Subjective: Phone consult 03/21 34 yof [...] this POC medically necessary. Please sign below. Po Patterson, MartyPT, OCS, COMT, AIB-VAM Director Vestibular Rehabilitation documented in this encounterCrittenton Behavioral HealthNroxbctnje39-71-1375 History of Present illness Narrative* Barby Arzate MD - 12/28/2024 9:40 AM EDT Franklin Leiva is a 34 y.o. female No ref. provider found presents with chief complaint of Thyroid Problem and Follow-up (LAB) HPI: IM : 11/2024 Follow-up visit 12/28/2024, she is off steroids by her orthopedically impaired teacher, currently all thyroid lab within normal limits on 11/2024, including antibodies negative, and she is still worried about her weight. HPI: 08/2024 New patient came by herself due to weight gain she has history of GAGE positive, started on high dose dexamethasone 2 mg 4 times a day and then went to orthopedically impaired teacher who cut the dose to 1 mg [...] by mouth in the morning and 1 tablet(500 mg) in the evening. Take with meals. I encouraged her about the importance of diet and especially intermittent fasting and we will starther metformin 500 twice a day. Vitamin D deficiency Encounter for dietary consultation Class 3 severe obesity due to excess calories without serious comorbidity with body mass index (BMI) of 40.0 to 44.9 in adult ([facility]) Diet and exercise reviewed with the patient Follow up in about 4 months (around 04/30/2025). documented in this encounterCrittenton Behavioral HealthCwckxgftii28-63-1256 History of Present illness Narrative* Barbie Dang DO - 11/09/2024 11:30 AM EDT Images from the original note [...] TABLET IN THE AM AND 3 TABLETS INTHE PM [DISCONTINUED] dexAMETHasone (Decadron) 1 MG tablet [...] DO 11/12/2024 4:36 PM documented in this encounterCrittenton Behavioral HealthWuvkornwkb10-50-7416 History of Present illness Narrative* Barby Arzate MD - 09/21/2024 10:00 AM EDT Franklin Leiva is a 33 y.o. female Barby Arzate MD presents with chief complaint of HORMONES (NEW NO REFERRAL LABS ON PHONE) HPI: HPI 08/2024 New patient came by herself due to weight gain she has history of GAGE positive, started on high dose dexamethasone 2 mg 4 times a day and then went to orthopedically impaired teacher who cut the dose to 1 mg [...] taper down and to speak with her orthopedically impaired teacher to be off, and then we will [...] 3 months (around 12/21/2024). documented in this encounterCrittenton Behavioral HealthXiimhjkzgg25-65-4423 NoteCardiology Clinic Note HPI: Franklin Leiva is a 33 y.o. [...] is complete Briseida Carrasquillo MD [facility]12-03-2024 NoteCardiology Clinic Note HPI: Franklin Leiva is a 33 y.o. [...] or concerns. Briseida Carrasquillo MD Interventional [facility]05-31-2023 NoteOPERATIVE NOTE OPERATION DATE: 10/29/2022 PREOPERATIVE DIAGNOSIS: Symptomatic cholelithiasis. POSTOPERATIVE DIAGNOSIS: Symptomatic cholelithiasis with chronic cholecystitis. PROCEDURE: Laparoscopic cholecystectomy. SURGEON: Po Menchaca M.D. CERTIFIED DIALYSIS TECHNICIAN: NAYA Denise ANESTHESIA: General endotracheal. ESTIMATED BLOOD [...] the neck of gallbladder. CC: Patient's family physician.[facility] GeneralJtlizfne69-56-8477 NoteOPERATIVE NOTE OPERATION DATE: 10/01/2022 PREOPERATIVE DIAGNOSIS: Epigastric [...] room in good condition. CC: Nguyen Zamorano M.D.[facility] GeneralGejxbgga59-06-7113 NoteChief Complaint consultation for abdominal pain HPI Staff 31 year old female presents on consultation for Dr. Zamorano for abdominal pain. Presented to [place] ED 09/08 with RUQ and mid back pain. Reports pain was intermittent x 5 days and worse after eating. She had emesis x 1. Prescribed Levsin and Relafen; she is taking these with decrease in pain but not re solution. CT ABD/pelvis with pericholecystic inflammation. RUQ US [...] ate; also frequent loose stools; seen in [place] [facility] 09/08/22; normal labs, abd/pelvic ct scan [...] swallowing difficulties, no hearing loss, no ear infection(s),no nose bleeds. Cardiovascular: normal blood pressure, no [...] gallbladder and bile ducts, since poorly visualized onUS; will also proceed with EGD under anesthesia to evaluate for ulcer or gastritis; informed consent obtained. Ordered: Basic Metabolic Panel CBC w/ Auto Diff Hepatic Function Panel Lipase Level MRI Cholangiogram Pancreatography (mrcp) 2. Rt flank pain (R10.9: Unspecified abdominal pain) see # 1 Ordered: Basic Metabolic Panel CBC w/ Auto Diff Hepatic Function Panel Lipase Level MRI Cholangiogram Panc (more content not included)...[facility] Comment on above:Result Comment: Electronically Signed By: Po MENCHACA MD\Date and Time Signed: 09/26/22 13:27 [id number] Evaluation + Plan note Diagnostic Tests Pending * CBC w/ Auto Diff 09/26/22 * Basic Metabolic Panel 09/26/22 * Hepatic Function Panel 09/26/22 * Lipase Level 09/26/22 [facility] [place] Evaluation note* Diagnosis Weight gain- Primary Other symptoms [...] papillomavirus (HPV) documented in this encounter [facility] HealthcareEvaluation note* Diagnosis Weight gain- Primary Other symptoms concerning nutrition, metabolism, and development Vitamin D deficiency Encounter for dietary consultation Class 3 severe obesity due to excess calories without serious comorbidity with body mass index (BMI) of 40.0 to 44.9 in adult ([facility]) documented in this encounter [facility] HealthcareEvaluation note* Diagnosis Cervicalgia- Primary Intractable migraine without status migrainosus, unspecified migraine type Balance disorder documented in this encounter [facility] HealthcareEvaluation note* Diagnosis Cervicalgia- Primary Balance disorder documented in this encounter [facility] HealthcareEvaluation note* Diagnosis Cervicalgia- Primary Intractable migraine without status migrainosus, unspecified migraine type documented in this encounter [facility] HealthcareHospital course Narrative No data available for this section [facility] [place] [facility] Discharge instructions No data available for this section [facility] [place] Progress note No data available for this section [facility] [place] Reason for visit Narrative* Rehabilitation - Outpatient (Routine) - Pending ReviewSpecialtyDiagnoses / ProceduresReferred By Contact Referred To ContactPhysical Therapy Diagnoses Dizziness and giddiness Procedures HI PHYSICAL THERAPY EVALUATION LOW COMPLEX 20 MINS Nguyen Zamorano MD [address] [place] [address] Phone: tel:[phone] fax: Po Patterson, PT [address] [facility] [address] [place] [address] Phone: tel: fax: Referral IDStatusReasonStart DateExpiration DateVisits RequestedVisits [id number] Consult and Treat / [facility] HealthcareReason for visit Narrative* Rehabilitation - Outpatient (Routine) - AuthorizedSpecialtyDiagnoses / ProceduresReferred By ContactReferred To ContactPhysical Therapy Diagnoses Dizziness and giddiness Procedures HI PHYSICAL THERAPY EVALUATION LOW COMPLEX 20 MINS Nguyen Zamorano MD [address] [place] [address] Phone: tel: fax: Po Patterson, PT [address] [facility] [address] [place] [id number] Phone: tel: fax: Referral IDStatusReasonStart DateExpiration DateVisits RequestedVisits [id number] Consult and Treat / [facility] Summary Purpose Family History No Family History Records FoundNo Family History Records FoundNo Family History Records FoundNo Family History Records Found Advance Directives No Advanced Directives Records FoundNo Advanced Directives Records FoundNo Advanced Directives Records FoundNo Advanced Directives Records Found Additional Source Comments Patient Care team informatio n (unrecognized section and content) Team MemberRelationshipSpecialtyStart DateEnd Nguyen Zamorano MD [address] [place] [facility] [place] [address] PCP - GeneralFamily Medicine10/20/22Team MemberRelationshipSpecialtyStart DateEnd Date Nguyen Zamorano MD [address] [place] [facility] [place] [address] PCP - GeneralFamily Medicine10/20/22Team MemberRelationshipSpecialtyStart DateEnd Nguyen Zamoraon MD [address] [place] [facility] [place] [address] PCP - GeneralFamily Medicine11/09/24 Barbie Dang DO [address] [place] [phone] Referring PhysicianObstetrics and Gynecology11/09/24Team MemberRelationship SpecialtyStart DateEnd Nguyen Zamorano MD [address] [place] [facility] [place] [address] PCP - GeneralFamily Medicine11/09/24 Barbie Dang DO [address] [address] Referring PhysicianObstetrics and Gynecology11/09/24Team MemberRelationship SpecialtyStart DateEnd Date Nguyen Zamorano MD [address] [place] [facility] [place] [address] PCP - GeneralFamily Medicine11/09/24 Barbie Dang DO [address] [place] [phone] Referring PhysicianObstetrics and Gynecology11/09/24Te MemberRelationship SpecialtyStart DateEnd [facility] Nguyen Zamorano MD [address] [place] [facility] [place] [address] PCP - Generalmily Medicine11/09/24 Barbie Dang DO [address] [place] [phone] Referring PhysicianObstetrics and Gynecology11/09/24Te MemberRelationship SpecialtyStart DateEnd [facility] Nguyen Zamorano MD [address] [place] [facility] [place] [address] PCP - Generalmily Medicine11/09/24 Barbie Dang DO [address] [place] [phone] Referring PhysicianObstetrics and Gynecology11/09/24Te MemberRelationship SpecialtyStart DateEnd [facility] Nguyen Zamorano MD [address] [place] [address] PCP - GeneralFamily Medicine11/09/24 Barbie Dang DO [address] [place] [phone] Referring PhysicianObstetrics and Gynecology11/09/24Team MemberRelationship SpecialtyStart DateEnd Date Nguyen Zamorano MD [address] [place] [phone] PCP - Generalmily Medicine11/09/24 Barbie Dang DO [address] [phone] Referring PhysicianObstetrics and Gynecology11/09/24Team MemberRelationship SpecialtyStart DateEnd Date Nguyen Zamorano MD [address] [place] [address] PCP - [facility] Medicine11/09/24 Barbie Dang DO [address] [phone] Referring PhysicianObstetrics and Gynecology11/09/24 INFORMATION SOURCE (unrecogn ized section and content) DATE CREATED AUTHOR 11/08/2022 [facility] DATE CREATED AUTHOR AUTHOR'S ORGANIZ ATION 12/01/2022 [facility] DATE CREATED AUTHOR AUTHOR'S ORGANIZ ATION 07/11/2024 [facility] DATE CREATED AUTHOR AUTHOR'S ORGANIZ ATION 01/28/2025 [facility] Reason for Visit (unrecogniz ed section and content) ReasonCommentsHORMONESNEW NO REFERRAL LABS ON PHONEReasonCommentsGynecologic ExamPatient here for a yearly. Denies problems. Patient having periods every month lasting 5 days with normal bleeding and no cramping [facility] 10/09/24 Never been sexually active.ReasonCommentsThyroid ProblemFollow-upLAB FOR RECORDS PERTAINING TO PATIENTS WHO ARE [...] BE BASED ON THE PRIMARY CLINICAL RECORDS. [facility]Degord[facility]. provides no warranty or guarantee of the accuracy or completeness of information in this document.
== END 2025-04-05 12:27 | disposition home or self-care (01) ==
LOC: MRI 12:27
PROVIDERS: PCP Family Medicine; Visit Provider Family Medicine
DX: H55.09 Other forms of nystagmus (principal); Q04.8 Other specified congenital malformations of brain
CPT/HCPCS: 70553; A9575

== ENCOUNTER 2025-04-19 09:35 | Outpatient (OUT) | payer OTHER, SELFPAY ==
--- OUTSIDE RECORDS SUMMARY | 2025-04-19 09:47 | XMS_ITS | CCD ---
Author Organization [facility] Care Team Providers Care Tube Former Operator Name Role Phone Nguyen Zamorano Primary Care [...] GRECHNY ., TIMOTHY BERUMEN Consulting Unavaildomingo e HAY ., DR HENNING [...] Unavailable Nguyen Zamorano MD Primary Care Provider [phone] Nguyen Zamorano MD Primary Care Provider [phone] Barbie Dang DO Unavailable Nguyen Zamorano MD Primary Care Provider [phone] Allergies Allergy ClassificationReported Allergen(s)Allergy TypeDate of OnsetReaction(s) Facility (1 source)No Known Medication Allergies; Translations: [No Known Medication Allergies]Propensity to adverse reactions (disorder)[facility] [place] Rep[facility] Medications Current Medications MedicationDrug Class(es)DatesSig (Normalized)Sig (Original)esomeprazole 40 mg delayed release oral capsule (16 sources)Proton Pump InhibitorStart: 74-11-9914omnn 1 capsule by mouth once dailyNexium 40 mg Cap-EC 40 mg = 1 cap(s), Oral, Daily, # 90 cap(s), Refills(s) 1, Pharmacy: [facility]/pharmacy #[id number], 157.4, cm, 09/26/22 10:43:00 EDT, Height/Length Dosing, 91.7, kg, 09/26/22 10:43:00 EDT, Weight Dosing Start Date: 10/08/22 Status: Orderedfolic acid 1 mg oral tablet (14 sources)take 1 tablet by mouth once dailyfolic acid (Folvite) 1 MG tablet Take 1 mg by mouth Daily Activehyoscyamine sulfate 0.125 mg disintegrating oral tablet (3 sources)Start: 75-77-1642vceu 1 tablet by mouth four times dailyhyoscyamine 0.125 mg oral tablet, disintegrating 0.125 mg = 1 tab(s), Oral, QID, Refills(s) 0 StartDate: 09/26/22 Status: OrderedmetFORMIN hydrochloride 500 mg oral tablet (9 sources)BiguanideStart: 12-28-2024 End: 37-81-1312xlzl 1 tablet by mouth in the morningmetFORMIN (Glucophage) 500 MG tablet Indications: Weight gain Take 1 tablet (500 mg) by mouth in the morning and 1 tablet (500 mg) in the evening. Take with meals. 180 tablet 1 12/28/2024 06/26/2025 Activemethotrexate 2.5 mg oral tablet (14 sources)Folate Analog Metabolic Inhibitormethotrexate 2.5 MG tablet Take 2.5 mg by mouth. ON THURSDAY TAKE 3 TABLET IN THE AM AND 3 TABLETS INTHE PM Active nabumetone 500 mg oral tablet (3 sources)Nonsteroidal Anti-inflammatory DrugStart: 90-78-0472ibxa 2 tablets by mouth once dailynabumetone 500 mg Tab 1,000 mg = 2 tab(s), Oral, Daily, Refills(s) 0 Start Date: 09/26/22 Status: Orderednystatin 153320 unt/ml / triamcinolone acetonide 1 mg/ml topical cream (2 sources)Polyene Antifungal, CorticosteroidStart: 11-09-2024 End: 97-31-7816jeoybvjj-triamcinolone (Mycolog II) cream Indications: Vulvar itching , Candidiasis of vulva Apply topically in the morning and before bedtime. Do all this for 7 days. 15 g 11/09/2024 11/16/2024 Activesucralfate 100 mg/ml oral suspension (2 sources)Aluminum ComplexStart: 36-03-3894Vsqwhtgs 1 g/10 mL Susp-Oral 1 gm = 10 mL, Oral, QIDACHS, Refills(s) 0 Start Date: 10/08/22 Status: Ordered Completed/Discontinued Medications MedicationDrug Class(es)DatesSig (Normalized)Sig (Original)dexamethasone 1 mg oral tablet (4 sources)Corticosteroid End: 29-97-1304nrst 1 tablet by mouth in the morningdexAMETHasone (Decadron) 1 MG tablet Take 1 mg by mouth in the morning and 1 mg in the evening. Take with meals. 11/09/2024 Discontinued Problems Active Problems Problem ClassificationProblemDateDocumented DateEpisodic/ChronicAbdominal hernia (3 sources)Diaphragmatic hernia; Translations: [Diaphragmatic hernia without obstruction or gangrene]Onset: 11-46-0027RhdhwehbMxrqjyouo pain (20 sources)Right upper quadrant pain; Translations: [Right upper quadrant pain] Onset: 82-17-2901AmzazyjqWwxiaaii reactions (3 sources)Ewybow76-56-4998EnqenwbiBxczljs tract disease (12 sources)Biliary calculus; Translations: [Cholelithiasis without obstruction] Onset: 258783-18-1865ZaivozfpDynpbyilqo disorders (3 sources)Gastroesophageal reflux disease with hiatal hernia; Translations: [Gastro-esophageal reflux diseasewithout esophagitis]Onset: ChronicGastritis and duodenitis (1 source)Unspecified chronic gastritis without bleeding; Translations: [UNS CHRONIC GASTRITIS W/O BLEEDING]Onset: 53-71-0932NqkryrmErvmpfvtj and duodenitis (3 sources)Gastritis; Translations: [Other gastritis without bleeding]Onset: 07-09-7211VgqzvehlSbmtodmz; including migraine (10 sources)Migraine; Translations: [Migraine, unspecified, not intractable, without status migrainosus]Onset: 875129-44-0562XtuzsqyYgypxae (2 sources)Candidiasis of vulva; Translations: [Candidiasis of vulva]11-09-2024 EpisodicNausea and vomiting (5 sources)Nausea and vomiting; Translations: [Nausea with vomiting, unspecified]Onset: 11-69-1382XfhkwdkoAhvzczzenie chest pain (2 sources)Other chest pain; Translations: [Other chest pain]Onset: 05-03-2024 EpisodicNutritional deficiencies (4 sources)Vitamin D deficiency; Translations: [Vitamin D deficiency, unspecified]83-72-1490JktsmdbOilix inflammatory condition of skin (2 sources)Pruritus of vulva; Translations: [Pruritus vulvae]87-71-2626Skqtlfyu Other nervous system disorders (9 sources)Impairment of balance; Translations: [Other abnormalities of gait and mobility]Onset: 484529-91-0611EpvnjpzpXwdiw nutritional; endocrine; and metabolic disorders (3 sources)Body mass index 30+ - urtwqyg97-98-8279AaqcotbNqzaq nutritional; endocrine; and metabolic disorders (4 sources)Severe obesity; Translations: [Class 3 severe obesity due to excess calories without serious comorbidity with body mass index (BMI) of 40.0 to 44.9 in adult]75-23-0286DybhhbiXaxkv nutritional; endocrine; and metabolic disorders (4 sources)Weight increased; Translations: [Abnormal weight gain]09-21-2024 EpisodicSpondylosis; intervertebral disc disorders; other back problems (11 sources)Neck pain; Translations: [Cervicalgia]Onset: Episodic Past or Other Problems Problem ClassificationProblemDateDocumented DateEpisodic/ChronicImmunizations and screening for infectious disease (20 sources)Patient encounter status; Translations: [Encounter for screening for human papillomavirus (HPV)]Onset: 186586-45-0012FzukommsRmdxw screening for suspected conditions (not mental disorders or infectious disease) (10 sources)Cancer cervix screening status; Translations: [Encounter for screening for malignant neoplasm of cervix]Onset: 321061-15-1732Hoovtvdn Ovarian cyst (18 sources)Cyst of ovary; Translations: [Cyst of left ovary]Onset: 10-15-2022 66-36-7261Cukmyoye Results Test NameValueInterpretationReference RangeFacilityC3 AND C4on 01-25-2025 3143 MG/DLNormal(88 - 165)[place] ClinicComment on above:Performed By: #### CBC-D, CMP, UAFLX, ENA6, *GAGE-T, ACAX3, PCR-R, C3-C4, ESRCRP, VD25, CK, HBCA, HBSAB, CCP, RHF #### [facility] [address] [facility], [address] C 435 MG/DLNormal(14 - 44)[place] ClinicComment on above: Performed By: #### CBC-D, CMP, UAFLX, ENA6, *GAGE-T, ACAX3, PCR-R, C3-C4, ESRCRP, VD25, CK, HBCA, HBSAB, CCP, RHF #### [facility] [address] [facility], [address] CBC WITH DIFFon 43-09-5661GFMAUYDB CT0.01 x10^3ulNormal (0.00 - 0.16)[place] ClinicComment on above:Order Comment: 1C 1LFACILITY: [facility] [id number] By: #### CBC-D, CMP, UAFLX, ENA6, *GAGE-T, ACAX3, PCR-R, C3-C4, ESRCRP, VD25, CK, HBCA, HBSAB, CCP, RHF #### [facility] [address] [facility], [id number] [phone] Basophils/100 WBC (Bld)0.2 %Normal()[facility] HealthcareComment on above:Order Comment: 1C 1[facility]: [facility] [id number] By: #### CBC-D, CMP, UAFLX, ENA6, *GAGE-T, ACAX3, PCR-R, C3-C4, ESRCRP, VD25, CK, HBCA, HBSAB, CCP, RHF #### [facility] [address] [facility], [id number] EOSINOPHIL CT0.03 x10^3ulNormal(0.00 - 0.40)[facility] HealthcareComment on above:Order Comment: 1C 1[facility]AC[facility]: [facility] [id number] By: #### CBC-D, CMP, UAFLX, ENA6, *GAGE-T, ACAX3, PCR-R, C3- C4, ESRCRP, VD25, CK, HBCA, HBSAB, CCP, RHF #### [facility] [address] [facility], [id number] [phone] Eosinophils/100 WBC (Bld)0.6 %Normal()[facility] Comment on above:Order Comment: 1C 1[facility]: [facility] [id number] Performed By: #### CBC-D, CMP, UAFLX, ENA6, *GAGE-T, ACAX3, PCR-R, C3-C4, ESRCRP, VD25, CK, HBCA, HBSAB, CCP, RHF #### [facility] [address] [facility], [id number] Hematocrit (Bld) [Volume fraction]39.1 %Normal(37.0 - 47.0)[facility] HealthcareComment on above:Order Comment: 1C 1[facility]: [facility] [id number] By: #### CBC-D, CMP, UAFLX, ENA6, *GAGE-T, ACAX3, PCR-R, C3-C4, ESRCRP, VD25, CK, HBCA, HBSAB, CCP, RHF #### [facility] [address] [facility], [id number] Hemoglobin (Bld) [Mass/Vol]12.9 g/dLNormal(12.0 - 16.0) [place] ClinicComment on above:Order Comment: 1C 1[facility]: [facility] [id number] By: #### CBC-D, CMP, UAFLX, ENA6, *GAGE-T, ACAX3, PCR-R, C3-C4, ESRCRP, VD25, CK, HBCA, HBSAB, CCP, RHF #### [facility] [address] [facility], [facility] IMMATURE GRAN CT0.01 x10^3ulNormal(0.00 - 0.11)[place] [facility] ClinicComment on above:Order Comment: 1C 1[facility]: [facility] [id number] By: #### CBC-D, CMP, UAFLX, ENA6, *GAGE-T, ACAX3, PCR-R, C3- C4, ESRCRP, VD25, CK, HBCA, HBSAB, CCP, RHF #### [facility] [address] [facility], [id number] IMMATURE GRANS (IG)0.2 %Normal()[place] ClinicComment on above:Order Comment: 1C 1[facility]: [facility] [id number] By: #### CBC-D, CMP, UAFLX, ENA6, *GAGE-T, ACAX3, PCR-R, C3-C4, ESRCRP, VD25, CK, HBCA, HBSAB, CCP, RHF #### [facility] [address] [facility], [id number] LYMPHOCYTE CT1.61 x10^3ulNormal(0.96 - 5.40)[place] ClinicComment on above:Order Comment: 1C 1[facility]: [facility] [id number] By: #### CBC-D, CMP, UAFLX, ENA6, *GAGE-T, ACAX3, PCR-R, C3- C4, ESRCRP, VD25, CK, HBCA, HBSAB, CCP, RHF #### [facility] [address] [facility], [id number] LYMPS32.0 %Normal()[place] ClinicComment on above:Order Comment: 1C 1[facility]: [facility] [id number] By: #### CBC- D, CMP, UAFLX, ENA6, *GAGE-T, ACAX3, PCR-R, C3-C4, ESRCRP, VD25, CK, HBCA, HBSAB, CCP, RHF #### [facility] [address] [facility], [id number] MCH (RBC) [Entitic mass]29.3 pgNormal(27.0 - 33.0)[place] ClinicComment on above:Order Comment: 1C 1[facility]: [facility] [id number] By: #### CBC-D, CMP, UAFLX, ENA6, *GAGE-T, ACAX3, PCR-R, C3- C4, ESRCRP, VD25, CK, HBCA, HBSAB, CCP, RHF #### [facility] [address] [facility], [address] MCHC (RBC) [Mass/Vol]33.0 g/dLNormal(30.0 - 37.0)[place] ClinicComment on above:Order Comment: 1C 1[facility]: [facility] [id number] By: #### CBC-D, CMP, UAFLX, ENA6, *GAGE-T, ACAX3, PCR-R, C3- C4, ESRCRP, VD25, CK, HBCA, HBSAB, CCP, RHF #### [facility] [address] [facility], [address] MCV (RBC) [Entitic vol]88.7 fLNormal(81.0 - 99.0)[facility] HealthcareComment on above:Order Comment: 1C 1[facility]: [facility] [id number] By: #### CBC-D, CMP, UAFLX, ENA6, *GAGE-T, ACAX3, PCR-R, C3- C4, ESRCRP, VD25, CK, HBCA, HBSAB, CCP, RHF #### [facility] [address] [facility], [address] [address]0.41 x10^3ulNormal(0.10 - 0.90)[facility] Comment on above:Order Comment: 1C 1[facility]: [facility] [id number] Performed By: #### CBC-D, CMP, UAFLX, ENA6, *GAGE-T, ACAX3, PCR-R, C3-C4, ESRCRP, VD25, CK, HBCA, HBSAB, CCP, RHF #### [facility] [address] [facility], [address] MONOS8.2 %Normal()[facility] HealthcareComment on above:Order Comment: 1C 1[facility]: [facility] [id number] By: #### CBC- D, CMP, UAFLX, ENA6, *GAGE-T, ACAX3, PCR-R, C3-C4, ESRCRP, VD25, CK, HBCA, HBSAB, CCP, RHF #### [facility] [address] [facility], [address] NEUTROPHIL CT2.96 x10^3ulNormal(1.50 - 7.00)[facility] HealthcareComment on above:Order Comment: 1C 1[facility]: [facility] [id number] By: #### CBC-D, CMP, UAFLX, ENA6, *GAGE-T, ACAX3, PCR-R, C3- C4, ESRCRP, VD25, CK, HBCA, HBSAB, CCP, RHF #### [facility] [address] [facility], [id number] PLT369 x10^3ulNormal(130 - 400)[place] ClinicComment on above:Order Comment: 1C 1[facility]: [facility] [id number] By: #### CBC-D, CMP, UAFLX, ENA6, *GAGE-T, ACAX3, PCR-R, C3-C4, ESRCRP, VD25, CK, HBCA, HBSAB, CCP, RHF #### [facility] [address] [facility], [id number] RBC4.41 x10^6ulNormal(4.20 - 5.40)[place] ClinicComment on above:Order Comment: 1C 1[facility]: [facility] [id number] By: #### CBC-D, CMP, UAFLX, ENA6, *GAGE-T, ACAX3, PCR-R, C3-C4, ESRCRP, VD25, CK, HBCA, HBSAB, CCP, RHF #### [facility] [address] [facility], [id number] RDW-SD49.1 flHigh(37.0 - 49.0)[place] ClinicComment on above:Order Comment: 1C 1[facility]: [facility] [id number] By: #### CBC-D, CMP, UAFLX, ENA6, *GAGE-T, ACAX3, PCR-R, C3-C4, ESRCRP, VD25, CK, HBCA, HBSAB, CCP, RHF #### [facility] [address] [facility], [id number] SEGS58.8 %Normal()[place] ClinicComment on above:Order Comment: 1C 1[facility]: [facility] [id number] By: #### CBC- D, CMP, UAFLX, ENA6, *GAGE-T, ACAX3, PCR-R, C3-C4, ESRCRP, VD25, CK, HBCA, HBSAB, CCP, RHF #### [facility] [address] [facility], [id number] WBC5.03 x10^3ulNormal(3.80 - 10.60)[place] ClinicComment on above:Order Comment: 1C 1[facility]: [facility] [id number] By: #### CBC-D, CMP, UAFLX, ENA6, *GAGE-T, ACAX3, PCR-R, C3-C4, ESRCRP, VD25, CK, HBCA, HBSAB, CCP, RHF #### [facility] [address] [facility], [address] COMP MET PANEL w GFR(EPI)on 03-08-0731Akhhduv [Mass/Vol] 4.4 g/dLNormal(3.5 - 5.0)[place] ClinicComment on above:Performed By: #### CBC-D, CMP, UAFLX, ENA6, *GAGE-T, ACAX3, PCR-R, C3-C4, ESRCRP, VD25, CK, HBCA, HBSAB, CCP, RHF #### [facility] [address] [facility], [id number] ALK PHOS76 U/LNormal(38 - 126)[place] ClinicComment on above:Performed By: #### CBC-D, CMP, UAFLX, ENA6, *GAGE-T, ACAX3, PCR-R, C3-C4, ESRCRP, VD25, CK, HBCA, HBSAB, CCP, RHF #### [facility] [address] [facility], [address] ALT [Catalytic activity/Vol]100 U/LHigh(1 - 35)[place] ClinicComment on above:Performed By: #### CBC-D, CMP, UAFLX, ENA6, *GAGE-T, ACAX3, PCR-R, C3-C4, ESRCRP, VD25, CK, HBCA, HBSAB, CCP, RHF #### [facility] [address] [place], [id number] AST [Catalytic activity/Vol]69 U/LHigh(15 - 46)[place] ClinicComment on above:Performed By: #### CBC-D, CMP, UAFLX, ENA6, *GAGE-T, ACAX3, PCR-R, C3-C4, ESRCRP, VD25, CK, HBCA, HBSAB, CCP, RHF #### [facility] [address] [facility], [address] Bilirubin [Mass/Vol]0.7 mg/dLNormal(0.2 - 1.3)[place] ClinicComment on above:Performed By: #### CBC-D, CMP, UAFLX, ENA6, *GAGE-T, ACAX3, PCR-R, C3-C4, ESRCRP, VD25, CK, HBCA, HBSAB, CCP, RHF #### [facility] [facility], [address] Calcium [Mass/Vol]9.2 mg/dLNormal(8.6 - 10.6)[place] ClinicComment on above:Performed By: #### CBC-D, CMP, UAFLX, ENA6, *GAGE-T, ACAX3, PCR-R, C3-C4, ESRCRP, VD25, CK, HBCA, HBSAB, CCP, RHF #### [facility] [address] [place], [id number] Chloride [Moles/Vol]108 mmol/LNormal(98 - 110)[place] ClinicComment on above:Performed By: #### CBC-D, CMP, UAFLX, ENA6, *GAGE-T, ACAX3, PCR-R, C3-C4, ESRCRP, VD25, CK, HBCA, HBSAB, CCP, RHF #### [facility] [address] [place], [id number] CO2 [Moles/Vol]28 mmol/LNormal(22 - 30)[facility] Comment on above:Performed By: #### CBC-D, CMP, UAFLX, ENA6, *GAGE-T, ACAX3, PCR- R, C3-C4, ESRCRP, VD25, CK, HBCA, HBSAB, CCP, RHF #### [facility] [address] [facility], [id number] Creatinine [Mass/Vol]0.66 mg/dLNormal(0.52 - 1.04)[facility] HealthcareComment on above:Performed By: #### CBC-D, CMP, UAFLX, ENA6, *GAGE-T, ACAX3, PCR-R, C3-C4, ESRCRP, VD25, CK, HBCA, HBSAB, CCP, RHF #### [facility] [address] [facility], [id number] GFR by CKD-MTC510.7 ML/M1.7Normal(60.0)[facility] Comment on above:Performed By: #### CBC-D, CMP, UAFLX, ENA6, *GAGE-T, ACAX3, PCR- R, C3-C4, ESRCRP, VD25, CK, HBCA, HBSAB, CCP, RHF #### [facility] [address] [facility], [id number] Glucose [Mass/Vol]101 mg/dLNormal(74 - 106)[facility] Comment on above:Performed By: #### CBC-D, CMP, UAFLX, ENA6, *GAGE-T, ACAX3, PCR- R, C3-C4, ESRCRP, VD25, CK, HBCA, HBSAB, CCP, RHF #### [facility] [address] [facility], [id number] Potassium [Moles/Vol]4.3 mmol/LNormal(3.5 - 5.1)[place] ClinicComment on above:Performed By: #### CBC-D, CMP, UAFLX, ENA6, *GAGE-T, ACAX3, PCR-R, C3-C4, ESRCRP, VD25, CK, HBCA, HBSAB, CCP, RHF #### [facility] [address] [facility], [address] Protein [Mass/Vol]7.2 g/dLNormal(6.3 - 8.2)[facility] Comment on above:Performed By: #### CBC-D, CMP, UAFLX, ENA6, *GAGE-T, ACAX3, PCR- R, C3-C4, ESRCRP, VD25, CK, HBCA, HBSAB, CCP, RHF #### [facility] [address] [facility], [id number] Sodium [Moles/Vol]139 mmol/LNormal(135 - 145)[place] ClinicComment on above:Performed By: #### CBC-D, CMP, UAFLX, ENA6, *GAGE-T, ACAX3, PCR-R, C3-C4, ESRCRP, VD25, CK, HBCA, HBSAB, CCP, RHF #### [facility] [address] [facility], [address] Urea nitrogen [Mass/Vol]8 mg/dLNormal(4 - 25)[place] ClinicComment on above:Performed By: #### CBC-D, CMP, UAFLX, ENA6, *GAGE-T, ACAX3, PCR-R, C3-C4, ESRCRP, VD25, CK, HBCA, HBSAB, CCP, RHF #### [facility] [address] [facility], [address] SED RATE - CRPon [id number] EXTENDED RANGE1.52 MG/L Normal(0.00 - 5.00)[place] ClinicComment on above:Performed By: #### CBC-D, CMP, UAFLX, ENA6, *GAGE-T, ACAX3, PCR-R, C3-C4, ESRCRP, VD25, CK, HBCA, HBSAB, CCP, RHF #### [facility] [address] [facility], [id number] SED RATE WEST.3 MM/HRNormal(0 - 25)[place] ClinicComment on above:Performed By: #### CBC-D, CMP, UAFLX, ENA6, *GAGE-T, ACAX3, PCR-R, C3- C4, ESRCRP, VD25, CK, HBCA, HBSAB, CCP, RHF #### [facility] [address] [facility], [address] CBC/ALB/ALT/AST/ALK/CRon 94-72-5096Rchhnnq [Mass/Vol]4.5 g/dLNormal(3.5 - 5.0)[place] ClinicComment on above:Order Comment: FACILITY: [facility] [id number] By: #### CBC-D, CMP, UAFLX, ENA6, *GAGE-T, ACAX3, PCR-R, C3-C4, ESRCRP, VD25, CK, HBCA, HBSAB, CCP, RHF #### [facility] [address] [facility], [id number] ALK PHOS65 U/LNormal(38 - 126)[place] ClinicComment on above:Order Comment: FACILITY: [facility] [id number] By: #### CBC-D, CMP, UAFLX, ENA6, *GAGE-T, ACAX3, PCR-R, C3-C4, ESRCRP, VD25, CK, HBCA, HBSAB, CCP, RHF #### [facility] [address] [facility], [id number] ALT [Catalytic activity/Vol]75 U/LHigh(1 - 35)[place] ClinicComment on above:Order Comment: FACILITY: [facility] [id number] Performed By: #### CBC-D, CMP, UAFLX, ENA6, *GAGE-T, ACAX3, PCR-R, C3-C4, ESRCRP, VD25, CK, HBCA, HBSAB, CCP, RHF #### [facility] [address] [facility], [id number] AST [Catalytic activity/Vol]43 U/LNormal(15 - 46)[facility] HealthcareComment on above:Order Comment: FACILITY: [facility] [id number] Performed By: #### CBC-D, CMP, UAFLX, ENA6, *GAGE-T, ACAX3, PCR-R, C3-C4, ESRCRP, VD25, CK, HBCA, HBSAB, CCP, RHF #### [facility] [address] [facility], [id number] Creatinine [Mass/Vol]0.78 mg/dLNormal(0.52 - 1.04)[facility] HealthcareComment on above:Order Comment: FACILITY: [facility] [id number] By: #### CBC-D, CMP, UAFLX, ENA6, *GAGE-T, ACAX3, PCR-R, C3- C4, ESRCRP, VD25, CK, HBCA, HBSAB, CCP, RHF #### [facility] [address] [facility], [address] GFR by CKD-LWV804.8 ML/M1.7Normal(60.0)[facility] Comment on above:Order Comment: FACILITY: [facility] [id number] Performed By: #### CBC-D, CMP, UAFLX, ENA6, *GAGE-T, ACAX3, PCR-R, C3-C4, ESRCRP, VD25, CK, HBCA, HBSAB, CCP, RHF #### [facility] [address] [facility], [address] Hematocrit (Bld) [Volume fraction]34.8 %Low(37.0 - 47.0) [facility] on above:Order Comment: FACILITY: [facility] [id number] By: #### CBC-D, CMP, UAFLX, ENA6, *GAGE-T, ACAX3, PCR-R, C3- C4, ESRCRP, VD25, CK, HBCA, HBSAB, CCP, RHF #### [facility] [address] [facility], [address] Hemoglobin (Bld) [Mass/Vol]11.4 g/dLLow(12.0 - 16.0) [place] ClinicComment on above:Order Comment: FACILITY: [facility] [id number] By: #### CBC-D, CMP, UAFLX, ENA6, *GAGE-T, ACAX3, PCR-R, C3- C4, ESRCRP, VD25, CK, HBCA, HBSAB, CCP, RHF #### [facility] [address] [facility], [address] MCH (RBC) [Entitic mass]28.9 pgNormal(27.0 - 33.0)[place] ClinicComment on above:Order Comment: FACILITY: [facility] [id number] Performed By: #### CBC-D, CMP, UAFLX, ENA6, *AGGE-T, ACAX3, PCR-R, C3-C4, ESRCRP, VD25, CK, HBCA, HBSAB, CCP, RHF #### [facility] [address] [facility], [address] MCHC (RBC) [Mass/Vol]32.8 g/dLNormal(30.0 - 37.0)[place] ClinicComment on above:Order Comment: FACILITY: [facility] [id number] Performed By: #### CBC-D, CMP, UAFLX, ENA6, *GAGE-T, ACAX3, PCR-R, C3-C4, ESRCRP, VD25, CK, HBCA, HBSAB, CCP, RHF #### [facility] [address] [facility], [address] MCV (RBC) [Entitic vol]88.1 fLNormal(81.0 - 99.0)[place] ClinicComment on above:Order Comment: FACILITY: [facility] [id number] Performed By: #### CBC-D, CMP, UAFLX, ENA6, *GAGE-T, ACAX3, PCR-R, C3-C4, ESRCRP, VD25, CK, HBCA, HBSAB, CCP, RHF #### [facility] [address] [facility], [address] PLT325 x10^3ulNormal(130 - 400)[place] ClinicComment on above:Order Comment: FACILITY: [facility] [id number] By: #### CBC-D, CMP, UAFLX, ENA6, *GAGE-T, ACAX3, PCR-R, C3-C4, ESRCRP, VD25, CK, HBCA, HBSAB, CCP, RHF #### [facility] [address] [facility], [id number] RBC3.95 x10^6ulLow(4.20 - 5.40)[place] ClinicComment on above:Order Comment: FACILITY: [facility] [id number] By: #### CBC-D, CMP, UAFLX, ENA6, *GAGE-T, ACAX3, PCR-R, C3-C4, ESRCRP, VD25, CK, HBCA, HBSAB, CCP, RHF #### [facility] [address] [facility], [id number] WBC6.01 x10^3ulNormal(3.80 - 10.60)[place] ClinicComment on above:Order Comment: FACILITY: [facility] [id number] By: #### CBC-D, CMP, UAFLX, ENA6, *GAGE-T, ACAX3, PCR-R, C3-C4, ESRCRP, VD25, CK, HBCA, HBSAB, CCP, RHF #### [facility] [address] [facility], [address] Laboratory - Cytologyon [id number] Cyto stain Nom (Cvx/Vag) [ID]CommentNOKY HealthcareComment on above:Jamee Rios Manager Inventory Control (ASCP)Cytology report Cyto stain Doc (Cvx/Vag)CommentOzarks Community Hospital Comment on above:NEGATIVE FOR INTRAEPITHELIAL LESION OR MALIGNANCY.Cytology report Cyto stain.thin prep Doc (Cvx/Vag)CommentOzarks Community HospitalComment on above: This liquid based ThinPrep(R) pap test was screened with the use of an image guided system. Statement of adequacy Cyto stain (Cvx/Vag) [Interp]CommentNOKY HealthcareComment on above:Satisfactory for evaluation. Endocervical and/or squamous metaplastic cells (endocervical component) are present. Laboratory - Microbiology and Antimicrobial susceptibilityon [id number] 16+18+31+33+35+39+45+51+52+56+58+59+66+68 DNA Probe+sig amp Ql (Cvx)Negative NegativeNOKY HealthcareComment on above:This nucleic acid amplification test detects fourteen high-risk HPV types (16,18,31,33,35,39,45,51,52,56,58,59,66,68) without differentiation. Microscopic observation Other stain Nom (Unsp spec).[facility] - Miscellaneous testson [id number] comment (Unsp spec) [Interp]CommentNOKY HealthcareComment on above:The Pap smear is a screening test designed to aid in the detection of premalignant and malignant conditions of the uterine cervix. It is not a diagnostic procedure and should not be used as the sole means of detecting cervical cancer. Both false-positive and false-negative reports do occur. No Panel Informationon [id number] ICD code [Identifier]CommentNOKY HealthcareComment on above:Z12.4 Z11.51 Performed at: 01 - [facility] [id number] Adult Basic Studies Teacher: Magy John MD, Phone: [phone] Performed at: - [facility] [id number] Adult Basic Studies Teacher: Magy John MD, Phone: [phone] Specimen Comment: No. of containers..01 ThinPrep VialLABCORPNOMS HealthcareSED RATE - CRPon [id number] EXTENDED RANGE2.14 MG/LNormal(0.00 - 5.00)Nix ClinicComment on above:Performed By: #### CBC-D, CMP, UAFLX, ENA6, *GAGE-T, ACAX3, PCR-R, C3-C4, ESRCRP, VD25, CK, HBCA, HBSAB, CCP, RHF #### [facility] [address] [facility], [id number] SED RATE WEST.13 MM/HRNormal(0 - 25)Nix ClinicComment on above:Performed By: #### CBC-D, CMP, UAFLX, ENA6, *GAGE-T, ACAX3, PCR-R, C3- C4, ESRCRP, VD25, CK, HBCA, HBSAB, CCP, RHF #### [facility] [address] [facility], [address] C3 AND C4on 10-07-2024 3165 MG/DLNormal(88 - 165)Nix ClinicComment on above:Performed By: #### CBC-D, CMP, UAFLX, ENA6, *GAGE-T, ACAX3, PCR-R, C3-C4, ESRCRP, VD25, CK, HBCA, HBSAB, CCP, RHF #### [facility] [facility], [address] C 439 MG/DLNormal(14 - 44)Nix ClinicComment on above: Performed By: #### CBC-D, CMP, UAFLX, ENA6, *GAGE-T, ACAX3, PCR-R, C3-C4, ESRCRP, VD25, CK, HBCA, HBSAB, CCP, RHF #### [facility] [address] [facility], [address] CBC/ALB/ALT/AST/ALK/CRon [id number] [Mass/Vol]4.4 g/dLNormal(3.5 - 5.0)Uk HealthcareComment on above:Order Comment: FACILITY: [facility] [id number] By: #### CBC-D, CMP, UAFLX, ENA6, *GAGE-T, ACAX3, PCR-R, C3-C4, ESRCRP, VD25, CK, HBCA, HBSAB, CCP, RHF #### [facility] [address] [facility], [id number] ALK PHOS63 U/LNormal(38 - 126)Uk HealthcareComment on above:Order Comment: FACILITY: [facility] [id number] By: #### CBC-D, CMP, UAFLX, ENA6, *GAGE-T, ACAX3, PCR-R, C3-C4, ESRCRP, VD25, CK, HBCA, HBSAB, CCP, RHF #### [facility] [address] [facility], [id number] ALT [Catalytic activity/Vol]102 U/LHigh(1 - 35)Uk HealthcareComment on above:Order Comment: FACILITY: [facility] [id number] Performed By: #### CBC-D, CMP, UAFLX, ENA6, *GAGE-T, ACAX3, PCR-R, C3-C4, ESRCRP, VD25, CK, HBCA, HBSAB, CCP, RHF #### [facility] [address] [facility], [id number] AST [Catalytic activity/Vol]45 U/LNormal(15 - 46)[facility] HealthcareComkalkaska memorial health center on above:Order Comment: FACILITY: [facility] [id number] Performed By: #### CBC-D, CMP, UAFLX, ENA6, *GAGE-T, ACAX3, PCR-R, C3-C4, ESRCRP, VD25, CK, HBCA, HBSAB, CCP, RHF #### [facility] [address] [facility], [address] Creatinine [Mass/Vol]0.66 mg/dLNormal(0.52 - 1.04)Uk HealthcareComment on above:Order Comment: [id number] By: #### CBC-D, CMP, UAFLX, ENA6, *GAGE-T, ACAX3, PCR-R, C3- C4, ESRCRP, VD25, CK, HBCA, HBSAB, CCP, RHF #### [facility] [address] [facility], [address] GFR by CKD-DLC693.5 ML/M1.7Normal(60.0)[facility] Comment on above:Order Comment: [id number] Performed By: #### CBC-D, CMP, UAFLX, ENA6, *GAGE-T, ACAX3, PCR-R, C3-C4, ESRCRP, VD25, CK, HBCA, HBSAB, CCP, RHF #### [facility] [address] [facility], [address] Hematocrit (Bld) [Volume fraction]37.4 %Normal(37.0 - 47.0)Uk HealthcareComment on above:Order Comment: FACILITY: [facility] [id number] By: #### CBC-D, CMP, UAFLX, ENA6, *GAGE-T, ACAX3, PCR-R, C3- C4, ESRCRP, VD25, CK, HBCA, HBSAB, CCP, RHF #### [facility] [address] [facility], [address] Hemoglobin (Bld) [Mass/Vol]11.9 g/dLLow(12.0 - 16.0) Uk HealthcareComment on above:Order Comment: FACILITY: [facility] [id number] By: #### CBC-D, CMP, UAFLX, ENA6, *GAGE-T, ACAX3, PCR-R, C3- C4, ESRCRP, VD25, CK, HBCA, HBSAB, CCP, RHF #### [facility] [address] [facility], [id number] MCH (RBC) [Entitic mass]27.8 pgNormal(27.0 - 33.0)Nix ClinicComment on above:Order Comment: FACILITY: [facility] [id number] Performed By: #### CBC-D, CMP, UAFLX, ENA6, *GAGE-T, ACAX3, PCR-R, C3-C4, ESRCRP, VD25, CK, HBCA, HBSAB, CCP, RHF #### [facility] [address] [facility], [address] MCHC (RBC) [Mass/Vol]31.8 g/dLNormal(30.0 - 37.0)Nix ClinicComment on above:Order Comment: FACILITY: [facility] [id number] Performed By: #### CBC-D, CMP, UAFLX, ENA6, *GAGE-T, ACAX3, PCR-R, C3-C4, ESRCRP, VD25, CK, HBCA, HBSAB, CCP, RHF #### [facility] [address] [facility], [id number] MCV (RBC) [Entitic vol]87.4 fLNormal(81.0 - 99.0)Nix ClinicComment on above:Order Comment: FACILITY: [facility] [id number] Performed By: #### CBC-D, CMP, UAFLX, ENA6, *GAGE-T, ACAX3, PCR-R, C3-C4, ESRCRP, VD25, CK, HBCA, HBSAB, CCP, RHF #### [facility] [address] [facility], [id number] PLT314 x10^3ulNormal(130 - 400)Nix ClinicComment on above:Order Comment: FACILITY: [facility] [id number] By: #### CBC-D, CMP, UAFLX, ENA6, *GAGE-T, ACAX3, PCR-R, C3-C4, ESRCRP, VD25, CK, HBCA, HBSAB, CCP, RHF #### [facility] [address] [facility], [id number] RBC4.28 x10^6ulNormal(4.20 - 5.40)Nix ClinicComment on above:Order Comment: FACILITY: [facility] [id number] By: #### CBC-D, CMP, UAFLX, ENA6, *GAGE-T, ACAX3, PCR-R, C3-C4, ESRCRP, VD25, CK, HBCA, HBSAB, CCP, RHF #### [facility] [facility], [id number] WBC7.08 x10^3ulNormal(3.80 - 10.60)Nix ClinicComment on above:Order Comment: FACILITY: [facility] [id number] By: #### CBC-D, CMP, UAFLX, ENA6, *GAGE-T, ACAX3, PCR-R, C3-C4, ESRCRP, VD25, CK, HBCA, HBSAB, CCP, RHF #### [facility] [facility], [id number] SED RATE - CRPon [id number] EXTENDED RANGE1.49 MG/L Normal(0.00 - 5.00)Nix ClinicComment on above:Performed By: #### CBC-D, CMP, UAFLX, ENA6, *GAGE-T, ACAX3, PCR-R, C3-C4, ESRCRP, VD25, CK, HBCA, HBSAB, CCP, RHF #### [facility] [address] [facility], [id number] SED RATE WEST.6 MM/HRNormal(0 - 25)Nix ClinicComment on above:Performed By: #### CBC-D, CMP, UAFLX, ENA6, *GAGE-T, ACAX3, PCR-R, C3- C4, ESRCRP, VD25, CK, HBCA, HBSAB, CCP, RHF #### [facility] [address] [place], [place] [address]or Rd. [facility], [facility] ANA SUBTYPING (8)on [id number] CENTROMERE B<0.4 Normal(0.0 - 10.0)[facility] ClinicComment on above:Result Comment: PERFORMED ON PHADIA EFFECTIVE [id number] By: #### CBC-D, CMP, UAFLX, ENA6, *GAGE-T, ACAX3, PCR-R, C3-C4, ESRCRP, VD25, CK, HBCA, HBSAB, CCP, RHF #### [facility] [address] [place], [place] [address]or Rd. [facility] ANTI ds DNA0.8 IU/MLNormal(0.0 - 15.0)[facility] Comment on above:Performed By: #### CBC-D, CMP, UAFLX, ENA6, *GAGE-T, ACAX3, PCR- R, C3-C4, ESRCRP, VD25, CK, HBCA, HBSAB, CCP, RHF #### [facility] [address] [place], [place] [address]or Rd. [facility] ANTI SHERMAN-1<0.3Normal(0.0 - 10.0)Uk HealthcareComment on above:Performed By: #### CBC-D, CMP, UAFLX, ENA6, *GAGE-T, ACAX3, PCR-R, C3-C4, ESRCRP, VD25, CK, HBCA, HBSAB, CCP, RHF #### [facility] [address] [place], [place] [address]or Rd. [facility] ANTI RIGHT OF WAY CUTTER (U1RNP)0.9 U/mLNormal(0.0 - 10.0)[facility] Comment on above:Performed By: #### CBC-D, CMP, UAFLX, ENA6, *GAGE-T, ACAX3, PCR- R, C3-C4, ESRCRP, VD25, CK, HBCA, HBSAB, CCP, RHF #### [facility] [address] [place], [place] [address]. [facility], [address] ANTI SCL 70<0.6Normal(0.0 - 10.0)Nix ClinicComment on above:Performed By: #### CBC-D, CMP, UAFLX, ENA6, *GAGE-T, ACAX3, PCR-R, C3-C4, ESRCRP, VD25, CK, HBCA, HBSAB, CCP, RHF #### [facility] [address] [place], [place] [address]or Rd. [facility], [address] ANTI SWANSON<0.7Normal(0.0 - 10.0)Nix ClinicComment on above:Performed By: #### CBC-D, CMP, UAFLX, ENA6, *GAGE-T, ACAX3, PCR-R, C3-C4, ESRCRP, VD25, CK, HBCA, HBSAB, CCP, RHF #### [facility] [address] [place] [address] Rd. [facility], [address] ANTI SSB/LA<0.4Normal(0.0 - 10.0)Nix ClinicComment on above:Performed By: #### CBC-D, CMP, UAFLX, ENA6, *GAGE-T, ACAX3, PCR-R, C3-C4, ESRCRP, VD25, CK, HBCA, HBSAB, CCP, RHF #### [facility] [address] [place], [place] [address]or Rd. [facility], [address] SSA/RO52<0.3Normal(0.0 - 10.0)Nix ClinicComment on above:Performed By: #### CBC-D, CMP, UAFLX, ENA6, *GAGE-T, ACAX3, PCR-R, C3-C4, ESRCRP, VD25, CK, HBCA, HBSAB, CCP, RHF #### [facility] [address] [place], [place] [address] Rd. [facility], [address] SSA/RO60<0.4Normal(0.0 - 10.0)Nix ClinicComment on above:Performed By: #### CBC-D, CMP, UAFLX, ENA6, *GAGE-T, ACAX3, PCR-R, C3-C4, ESRCRP, VD25, CK, HBCA, HBSAB, CCP, RHF #### [facility] [address] [facility], [address] ANA with TITERon [id number] by HEp-2 CELLSPositive High(NEG - NEG)Nix ClinicComment on above:Performed By: #### CBC-D, CMP, UAFLX, ENA6, *GAGE-T, ACAX3, PCR-R, C3-C4, ESRCRP, VD25, CK, HBCA, HBSAB, CCP, RHF #### [facility] [address] [facility], [address] ANA TITERMIXEDHigh(<1:40 - 1:40)Nix ClinicComment on above:Result Comment: 1:80 GAGE PATTERN = CENTROMERE1:320 GAGE PATTERN = NUCLEOLAR Performed By: #### CBC-D, CMP, UAFLX, ENA6, *GAGE-T, ACAX3, PCR-R, C3-C4, ESRCRP, VD25, CK, HBCA, HBSAB, CCP, RHF #### [facility] [address] [facility], [address] C3 AND C4on 08-23-2024 3143 MG/DLNormal(88 - 165)Nix ClinicComment on above:Performed By: #### CBC-D, CMP, UAFLX, ENA6, *GAGE-T, ACAX3, PCR-R, C3-C4, ESRCRP, VD25, CK, HBCA, HBSAB, CCP, RHF #### [facility] [address] [facility], [address] C 426 MG/DLNormal(14 - 44)Nix ClinicComment on above: Performed By: #### CBC-D, CMP, UAFLX, ENA6, *GAGE-T, ACAX3, PCR-R, C3-C4, ESRCRP, VD25, CK, HBCA, HBSAB, CCP, RHF #### [facility] [address] [facility], [address] CARDIOLIPIN IGG, IGA, IGMon [id number], IgA1.5 U/mL Low(14.0 - 20.0)[facility] ClinicComment on above:Performed By: #### CBC-D, CMP, UAFLX, ENA6, *GAGE-T, ACAX3, PCR-R, C3-C4, ESRCRP, VD25, CK, HBCA, HBSAB, CCP, RHF #### [facility] [address] [place], [place] [address] Rd. [facility], [address] ACA, IgG1.0 U/mLLow(10.0 - 40.0)[facility] ClinicComment on above:Performed By: #### CBC-D, CMP, UAFLX, ENA6, *GAGE-T, ACAX3, PCR-R, C3-C4, ESRCRP, VD25, CK, HBCA, HBSAB, CCP, RHF #### [facility] [address] [place], [place] [address]. [facility], [address] ACA, IgM29.0 U/mLNormal(10.0 - 40.0)Nix ClinicComment on above:Result Comment: Result between 10.0 - 40.0 U/mL is considered weak positive -recommend initially retesting the patient after 8 - 12 weeks and then as clinically indicated.Performed By: #### CBC-D, CMP, UAFLX, ENA6, *GAGE-T, ACAX3, PCR-R, C3-C4, ESRCRP, VD25, CK, HBCA, HBSAB, CCP, RHF #### [facility] [address] [facility], [address] CBC WITH DIFFon [id number] CT0.03 x10^3ulNormal (0.00 - 0.16)[facility] ClinicComment on above:Order Comment: FACILITY: [facility] [id number] By: #### CBC-D, CMP, UAFLX, ENA6, *GAGE-T, ACAX3, PCR-R, C3-C4, ESRCRP, VD25, CK, HBCA, HBSAB, CCP, RHF #### [facility] [address] [facility], [phone] Basophils/100 WBC (Bld)0.2 %Normal()Uk HealthcareComment on above:Order Comment: FACILITY: [facility] [id number] By: #### CBC-D, CMP, UAFLX, ENA6, *GAGE-T, ACAX3, PCR-R, C3-C4, ESRCRP, VD25, CK, HBCA, HBSAB, CCP, RHF #### [facility] [facility], [id number] EOSINOPHIL CT0.00 x10^3ulNormal(0.00 - 0.40)Uk HealthcareComment on above:Order Comment: FACILITY: [facility] [id number] By: #### CBC-D, CMP, UAFLX, ENA6, *GAGE-T, ACAX3, PCR-R, C3-C4, ESRCRP, VD25, CK, HBCA, HBSAB, CCP, RHF #### [facility] [address] [facility], [phone] Eosinophils/100 WBC (Bld)0.0 %Normal()[facility] Comment on above:Order Comment: FACILITY: [facility] [id number] By: #### CBC-D, CMP, UAFLX, ENA6, *GAGE-T, ACAX3, PCR-R, C3-C4, ESRCRP, VD25, CK, HBCA, HBSAB, CCP, RHF #### [facility] [address] [facility], [id number] Hematocrit (Bld) [Volume fraction]39.9 %Normal(37.0 - 47.0)[facility] ClinicComment on above:Order Comment: FACILITY: [facility] [id number] By: #### CBC-D, CMP, UAFLX, ENA6, *GAGE-T, ACAX3, PCR-R, C3-C4, ESRCRP, VD25, CK, HBCA, HBSAB, CCP, RHF #### [facility] [address] [facility], [address] Hemoglobin (Bld) [Mass/Vol]12.9 g/dLNormal(12.0 - 16.0) [facility] ClinicComment on above:Order Comment: FACILITY: [facility] [id number] By: #### CBC-D, CMP, UAFLX, ENA6, *GAGE-T, ACAX3, PCR-R, C3-C4, ESRCRP, VD25, CK, HBCA, HBSAB, CCP, RHF #### [facility] [address] [facility], [address] [address]0.11 x10^3ulNormal(0.00 - 0.11)[facility] ClinicComment on above:Order Comment: FACILITY: [facility] [id number] By: #### CBC-D, CMP, UAFLX, ENA6, *GAGE-T, ACAX3, PCR-R, C3-C4, ESRCRP, VD25, CK, HBCA, HBSAB, CCP, RHF #### [facility] [address] [facility], [address] IMMATURE GRANS (IG)0.8 %Normal()[facility] ClinicComment on above:Order Comment: FACILITY: [facility] [id number] By: #### CBC-D, CMP, UAFLX, ENA6, *GAGE-T, ACAX3, PCR-R, C3-C4, ESRCRP, VD25, CK, HBCA, HBSAB, CCP, RHF #### [facility] [address] [facility], [address] [address]1.98 x10^3ulNormal(0.96 - 5.40)[facility] ClinicComment on above:Order Comment: FACILITY: [facility] [id number] By: #### CBC-D, CMP, UAFLX, ENA6, *GAGE-T, ACAX3, PCR-R, C3-C4, ESRCRP, VD25, CK, HBCA, HBSAB, CCP, RHF #### [facility] [address] [facility], [address] LYMPS14.9 %Normal()[facility] ClinicComment on above:Order Comment: FACILITY: [facility] [id number] By: #### CBC-D, CMP, UAFLX, ENA6, *GAGE-T, ACAX3, PCR-R, C3-C4, ESRCRP, VD25, CK, HBCA, HBSAB, CCP, RHF #### [facility] [address] [facility], [id number] MCH (RBC) [Entitic mass]27.5 pgNormal(27.0 - 33.0)[facility] ClinicComment on above:Order Comment: FACILITY: [facility] [id number] By: #### CBC-D, CMP, UAFLX, ENA6, *GAGE-T, ACAX3, PCR-R, C3-C4, ESRCRP, VD25, CK, HBCA, HBSAB, CCP, RHF #### [facility] [address] [facility], [address] MCHC (RBC) [Mass/Vol]32.3 g/dLNormal(30.0 - 37.0)[facility] ClinicComment on above:Order Comment: FACILITY: [facility] [id number] By: #### CBC-D, CMP, UAFLX, ENA6, *GAGE-T, ACAX3, PCR-R, C3-C4, ESRCRP, VD25, CK, HBCA, HBSAB, CCP, RHF #### [facility] [address] [facility], [address] MCV (RBC) [Entitic vol]85.1 fLNormal(81.0 - 99.0)[facility] HealthcareComment on above:Order Comment: FACILITY: [facility] [id number] By: #### CBC-D, CMP, UAFLX, ENA6, *GAGE-T, ACAX3, PCR-R, C3-C4, ESRCRP, VD25, CK, HBCA, HBSAB, CCP, RHF #### [facility] [address] [facility] MONOCYTE CT0.81 x10^3ulNormal(0.10 - 0.90)[facility] Comment on above:Order Comment: FACILITY: [facility] [id number] By: #### CBC-D, CMP, UAFLX, ENA6, *GAGE-T, ACAX3, PCR-R, C3-C4, ESRCRP, VD25, CK, HBCA, HBSAB, CCP, RHF #### [facility] [facility], [address] MONOS6.1 %Normal()[facility] ClinicComment on above:Order Comment: FACILITY: [facility] [id number] By: #### CBC-D, CMP, UAFLX, ENA6, *GAGE-T, ACAX3, PCR-R, C3-C4, ESRCRP, VD25, CK, HBCA, HBSAB, CCP, RHF #### [facility] [address] [facility], [address] NEUTROPHIL CT10.37 x10^3ulHigh(1.50 - 7.00)[facility] Comment on above:Order Comment: FACILITY: [facility] [id number] By: #### CBC-D, CMP, UAFLX, ENA6, *GAGE-T, ACAX3, PCR-R, C3-C4, ESRCRP, VD25, CK, HBCA, HBSAB, CCP, RHF #### [facility] [address] [facility], [address] PLT379 x10^3ulNormal(130 - 400)[facility] ClinicComment on above:Order Comment: FACILITY: [facility] [id number] By: #### CBC-D, CMP, UAFLX, ENA6, *GAGE-T, ACAX3, PCR-R, C3-C4, ESRCRP, VD25, CK, HBCA, HBSAB, CCP, RHF #### [facility] [address] [facility], [address] RBC4.69 x10^6ulNormal(4.20 - 5.40)[facility] ClinicComment on above:Order Comment: FACILITY: [facility] [id number] By: #### CBC-D, CMP, UAFLX, ENA6, *GAGE-T, ACAX3, PCR-R, C3-C4, ESRCRP, VD25, CK, HBCA, HBSAB, CCP, RHF #### [facility] [address] [facility], [address] [phone]-YU95.0 flNormal(37.0 - 49.0)[facility] ClinicComment on above:Order Comment: FACILITY: [facility] [id number] By: #### CBC-D, CMP, UAFLX, ENA6, *GAGE-T, ACAX3, PCR-R, C3-C4, ESRCRP, VD25, CK, HBCA, HBSAB, CCP, RHF #### [facility] [address] [facility], [id number] SEGS78.0 %Normal()[facility] ClinicComment on above:Order Comment: FACILITY: [facility] [id number] By: #### CBC-D, CMP, UAFLX, ENA6, *GAGE-T, ACAX3, PCR-R, C3-C4, ESRCRP, VD25, CK, HBCA, HBSAB, CCP, RHF #### [facility] [address] [facility], [address] WBC13.30 x10^3ulHigh(3.80 - 10.60)[facility] ClinicComment on above:Order Comment: FACILITY: [facility] [id number] By: #### CBC-D, CMP, UAFLX, ENA6, *GAGE-T, ACAX3, PCR-R, C3-C4, ESRCRP, VD25, CK, HBCA, HBSAB, CCP, RHF #### [facility] [address] [facility], [address] COMP MET PANEL w GFR(EPI)on [id number] [Mass/Vol] 4.4 g/dLNormal(3.5 - 5.0)[facility] ClinicComment on above:Performed By: #### CBC-D, CMP, UAFLX, ENA6, *GAGE-T, ACAX3, PCR-R, C3-C4, ESRCRP, VD25, CK, HBCA, HBSAB, CCP, RHF #### [facility] [address] [facility], [address] ALK PHOS64 U/LNormal(38 - 126)[facility] ClinicComment on above:Performed By: #### CBC-D, CMP, UAFLX, ENA6, *GAGE-T, ACAX3, PCR-R, C3-C4, ESRCRP, VD25, CK, HBCA, HBSAB, CCP, RHF #### [facility] [address] [facility], [address] ALT [Catalytic activity/Vol]57 U/LHigh(1 - 35)[facility] ClinicComment on above:Performed By: #### CBC-D, CMP, UAFLX, ENA6, *GAGE-T, ACAX3, PCR-R, C3-C4, ESRCRP, VD25, CK, HBCA, HBSAB, CCP, RHF #### [facility] [address] [facility], [address] AST [Catalytic activity/Vol]27 U/LNormal(15 - 46)[facility] ClinicComment on above:Performed By: #### CBC-D, CMP, UAFLX, ENA6, *GAGE-T, ACAX3, PCR-R, C3-C4, ESRCRP, VD25, CK, HBCA, HBSAB, CCP, RHF #### [facility] [address] [facility], [id number] Bilirubin [Mass/Vol]0.4 mg/dLNormal(0.2 - 1.3)[facility] ClinicComment on above:Performed By: #### CBC-D, CMP, UAFLX, ENA6, *GAGE-T, ACAX3, PCR-R, C3-C4, ESRCRP, VD25, CK, HBCA, HBSAB, CCP, RHF #### [facility] [address] [place], [place] [address]or Rd. [facility], [id number] Calcium [Mass/Vol]9.6 mg/dLNormal(8.6 - 10.6)[facility] ClinicComment on above:Performed By: #### CBC-D, CMP, UAFLX, ENA6, *GAGE-T, ACAX3, PCR-R, C3-C4, ESRCRP, VD25, CK, HBCA, HBSAB, CCP, RHF #### [facility] [address] [facility], [id number] Chloride [Moles/Vol]110 mmol/LHigh(98 - 107)[facility] ClinicComment on above:Performed By: #### CBC-D, CMP, UAFLX, ENA6, *GAGE-T, ACAX3, PCR-R, C3-C4, ESRCRP, VD25, CK, HBCA, HBSAB, CCP, RHF #### [facility] [address] [facility], [id number] CO2 [Moles/Vol]24 mmol/LNormal(22 - 30)[facility] Comment on above:Performed By: #### CBC-D, CMP, UAFLX, ENA6, *GAGE-T, ACAX3, PCR- R, C3-C4, ESRCRP, VD25, CK, HBCA, HBSAB, CCP, RHF #### [facility] [address] [facility], [id number] Creatinine [Mass/Vol]0.62 mg/dLNormal(0.52 - 1.04)[facility] HealthcareComment on above:Performed By: #### CBC-D, CMP, UAFLX, ENA6, *GAGE-T, ACAX3, PCR-R, C3-C4, ESRCRP, VD25, CK, HBCA, HBSAB, CCP, RHF #### [facility] [address] [facility], [id number] GFR by CKD-LPS471.3 ML/M1.7Normal(60.0)[facility] Comment on above:Performed By: #### CBC-D, CMP, UAFLX, ENA6, *GAGE-T, ACAX3, PCR- R, C3-C4, ESRCRP, VD25, CK, HBCA, HBSAB, CCP, RHF #### [facility] [address] [facility], [id number] Glucose [Mass/Vol]91 mg/dLNormal(74 - 106)[facility] Comment on above:Performed By: #### CBC-D, CMP, UAFLX, ENA6, *GAGE-T, ACAX3, PCR- R, C3-C4, ESRCRP, VD25, CK, HBCA, HBSAB, CCP, RHF #### [facility] [address] [facility], [address] Potassium [Moles/Vol]4.5 mmol/LNormal(3.5 - 5.1)[facility] ClinicComment on above:Performed By: #### CBC-D, CMP, UAFLX, ENA6, *GAGE-T, ACAX3, PCR-R, C3-C4, ESRCRP, VD25, CK, HBCA, HBSAB, CCP, RHF #### [facility] [address] [facility], [id number] Protein [Mass/Vol]6.9 g/dLNormal(6.3 - 8.2)[facility] Comment on above:Performed By: #### CBC-D, CMP, UAFLX, ENA6, *GAGE-T, ACAX3, PCR- R, C3-C4, ESRCRP, VD25, CK, HBCA, HBSAB, CCP, RHF #### [facility] [address] [facility], [address] Sodium [Moles/Vol]137 mmol/LNormal(137 - 145)[facility] ClinicComment on above:Performed By: #### CBC-D, CMP, UAFLX, ENA6, *GAGE-T, ACAX3, PCR-R, C3-C4, ESRCRP, VD25, CK, HBCA, HBSAB, CCP, RHF #### [facility] [facility], [id number] Urea nitrogen [Mass/Vol]14 mg/dLNormal(4 - 25)[facility] ClinicComment on above:Performed By: #### CBC-D, CMP, UAFLX, ENA6, *GAGE-T, ACAX3, PCR-R, C3-C4, ESRCRP, VD25, CK, HBCA, HBSAB, CCP, RHF #### [facility] [address] [facility], [id number] CPKon 31-96-5403GE [Catalytic activity/Vol]30 U/LNormal (30 - 135)[facility] ClinicComment on above:Performed By: #### CBC-D, CMP, UAFLX, ENA6, *GAGE-T, ACAX3, PCR-R, C3-C4, ESRCRP, VD25, CK, HBCA, HBSAB, CCP, RHF #### [facility] [address] [facility], [id number] HEP B CORE AB, TOTALon 93-79-7521URY B CORE ABNegative Normal(NEG - NEG)[facility] ClinicComment on above:Performed By: #### CBC-D, CMP, UAFLX, ENA6, *GAGE-T, ACAX3, PCR-R, C3-C4, ESRCRP, VD25, CK, HBCA, HBSAB, CCP, RHF #### [facility] [address] [facility], [id number] HEP B SURF ABon 12-34-3803YVN B SURF ABNegativeNormal (NEG - NEG)[facility] ClinicComment on above:Performed By: #### CBC-D, CMP, UAFLX, ENA6, *GAGE-T, ACAX3, PCR-R, C3-C4, ESRCRP, VD25, CK, HBCA, HBSAB, CCP, RHF #### [facility] [address] [facility], [phone] PROTEIN AND CREATININE (RANDOM)on 67-21-4070Spwnfxxgmw [Mass/Vol]62.8 mg/dLNormal(20 - 320)[facility] ClinicComment on above:Performed By: #### CBC-D, CMP, UAFLX, ENA6, *GAGE-T, ACAX3, PCR-R, C3-C4, ESRCRP, VD25, CK, HBCA, HBSAB, CCP, RHF #### [facility] [address] [facility], [phone] Protein (U) [Mass/Vol]5.0 mg/dLNormal(0.0 - 12.0)[facility] ClinicComment on above:Result Comment: PROTEIN, URINE = < 5.0 MG/DL PROTEIN, URINE MIN DETECTION = 5.0 MG/DLPerformed By: #### CBC-D, CMP, UAFLX, ENA6, *GAGE-T, ACAX3, PCR-R, C3-C4, ESRCRP, VD25, CK, HBCA, HBSAB, CCP, RHF #### [facility] [address] [facility], [id number] URINE PROTEIN/CREAT RATIO80 MG/G CRNormal(21 - 161) [facility] ClinicComment on above:Performed By: #### CBC-D, CMP, UAFLX, ENA6, *GAGE- T, ACAX3, PCR-R, C3-C4, ESRCRP, VD25, CK, HBCA, HBSAB, CCP, RHF #### [facility] [address] [facility], [address] RF FACTORon 36-35-9009LV FACTOR<9Normal(0 - 12)[facility] ClinicComment on above:Result Comment: RF FACTOR = LESS THAN 9 IU/ML RF FACTOR MIN. DETECTION = 9 IU/ML.Performed By: #### CBC-D, CMP, UAFLX, ENA6, *GAGE-T, ACAX3, PCR-R, C3-C4, ESRCRP, VD25, CK, HBCA, HBSAB, CCP, RHF #### [facility] [address] [facility], [address] SED RATE - CRPon 78-50-7823UTI EXTENDED RANGE<0.30Normal (0.00 - 5.00)[facility] ClinicComment on above:Performed By: #### CBC-D, CMP, UAFLX, ENA6, *GAGE-T, ACAX3, PCR-R, C3-C4, ESRCRP, VD25, CK, HBCA, HBSAB, CCP, RHF #### [facility] [address] [facility], [address] SED RATE WEST.8 MM/HRNormal(0 - 25)[facility] ClinicComment on above:Performed By: #### CBC-D, CMP, UAFLX, ENA6, *GAGE-T, ACAX3, PCR-R, C3- C4, ESRCRP, VD25, CK, HBCA, HBSAB, CCP, RHF #### [facility] [address] [facility], [address] URINALYSIS WITH REFLEX CULTUREon 15-44-9001VTZRIIA NegativeNormal(NONE - NEG)[facility] ClinicComment on above:Performed By: #### CBC- D, CMP, UAFLX, ENA6, *GAGE-T, ACAX3, PCR-R, C3-C4, ESRCRP, VD25, CK, HBCA, HBSAB, CCP, RHF #### [facility] [address] [facility], [address] BACTERIAOCCNormal(NONE - OCC)[facility] ClinicComment on above:Performed By: #### CBC-D, CMP, UAFLX, ENA6, *GAGE-T, ACAX3, PCR-R, C3-C4, ESRCRP, VD25, CK, HBCA, HBSAB, CCP, RHF #### [facility] [address] [facility], [address] Bilirubin Ql (U)NegativeNormal(NEG)[facility] ClinicComment on above:Performed By: #### CBC-D, CMP, UAFLX, ENA6, *GAGE-T, ACAX3, PCR-R, C3- C4, ESRCRP, VD25, CK, HBCA, HBSAB, CCP, RHF #### [facility] [address] [facility], [address] CHARACTERCLEARNormal(CLEAR - HAZY)[facility] ClinicComment on above:Performed By: #### CBC-D, CMP, UAFLX, ENA6, *GAGE-T, ACAX3, PCR-R, C3- C4, ESRCRP, VD25, CK, HBCA, HBSAB, CCP, RHF #### [facility] [facility], [address] Color (U)P YELNormal(P YEL - L AMB)[facility] ClinicComment on above:Performed By: #### CBC-D, CMP, UAFLX, ENA6, *GAGE-T, ACAX3, PCR-R, C3- C4, ESRCRP, VD25, CK, HBCA, HBSAB, CCP, RHF #### [facility] [address] [place], [place] [address]or Rd. [facility], [address] Glucose Ql (U)NegativeNormal(NEG)[facility] ClinicComment on above:Performed By: #### CBC-D, CMP, UAFLX, ENA6, *GAGE-T, ACAX3, PCR-R, C3-C4, ESRCRP, VD25, CK, HBCA, HBSAB, CCP, RHF #### [facility] [address] [place], [place] [address]or Rd. [facility], [address] Ketones Ql (U)NegativeNormal(NEG)[facility] ClinicComment on above:Performed By: #### CBC-D, CMP, UAFLX, ENA6, *GAGE-T, ACAX3, PCR-R, C3-C4, ESRCRP, VD25, CK, HBCA, HBSAB, CCP, RHF #### [facility] [address] [place], [place] [address]or Rd. [facility], [address] LEUK. ESTERASENegativeNormal(NEG)[facility] ClinicComment on above:Performed By: #### CBC-D, CMP, UAFLX, ENA6, *GAGE-T, ACAX3, PCR-R, C3-C4, ESRCRP, VD25, CK, HBCA, HBSAB, CCP, RHF #### [facility] [address] [place], [place] [address]or Rd. [facility], [address] Mucus Ql (Urine sed)OCCNormal(NONE - OCC)[facility] on above:Performed By: #### CBC-D, CMP, UAFLX, ENA6, *GAGE-T, ACAX3, PCR- R, C3-C4, ESRCRP, VD25, CK, HBCA, HBSAB, CCP, RHF #### [facility] [address] [place], [place] [address]or Rd. [facility], [address] Nitrite Ql (U)NegativeNormal(NEG)[facility] ClinicComment on above:Performed By: #### CBC-D, CMP, UAFLX, ENA6, *GAGE-T, ACAX3, PCR-R, C3-C4, ESRCRP, VD25, CK, HBCA, HBSAB, CCP, RHF #### [facility] [address] [place], [place] [address] Rd. [facility], [id number] OCCULT BLD.NegativeNormal(NEG)[facility] ClinicComment on above:Performed By: #### CBC-D, CMP, UAFLX, ENA6, *GAGE-T, ACAX3, PCR-R, C3-C4, ESRCRP, VD25, CK, HBCA, HBSAB, CCP, RHF #### [facility] [address] [place], [place] [address] Rd. [facility], [address] pH (U)5.0 [pH]Normal(5.0 - 9.0)[facility] ClinicComment on above:Performed By: #### CBC-D, CMP, UAFLX, ENA6, *GAGE-T, ACAX3, PCR-R, C3-C4, ESRCRP, VD25, CK, HBCA, HBSAB, CCP, RHF #### [facility] [address] [place], [place] [address]or Rd. [facility], [address] REFLEX CULTURE ADDEDNONormal()[facility] ClinicComment on above:Performed By: #### CBC-D, CMP, UAFLX, ENA6, *GAGE-T, ACAX3, PCR-R, C3-C4, ESRCRP, VD25, CK, HBCA, HBSAB, CCP, RHF #### [facility] [address] [place], [place] [address] Rd. [facility], [address] SP. GRAVITY1.011Normal(1.001 - 1.035)[facility] Comment on above:Performed By: #### CBC-D, CMP, UAFLX, ENA6, *GAGE-T, ACAX3, PCR- R, C3-C4, ESRCRP, VD25, CK, HBCA, HBSAB, CCP, RHF #### [facility] [address] [place], [place] [address]or Rd. [facility], [address] SQUAMOUS EPIOCCNormal(NONE - OCC)[facility] ClinicComment on above:Performed By: #### CBC-D, CMP, UAFLX, ENA6, *GAGE-T, ACAX3, PCR-R, C3-C4, ESRCRP, VD25, CK, HBCA, HBSAB, CCP, RHF #### [facility] [address] [place] [address] Rd. [facility], [address] UR. RBCNONENormal(0 - 2)[facility] ClinicComment on above: Performed By: #### CBC-D, CMP, UAFLX, ENA6, *GAGE-T, ACAX3, PCR-R, C3-C4, ESRCRP, VD25, CK, HBCA, HBSAB, CCP, RHF #### [facility] [address] [place] [address] Rd. [facility], [address] UR. WBC0-4Normal(0 - 4)[facility] ClinicComment on above: Performed By: #### CBC-D, CMP, UAFLX, ENA6, *GAGE-T, ACAX3, PCR-R, C3-C4, ESRCRP, VD25, CK, HBCA, HBSAB, CCP, RHF #### [facility] [address] [place], [place] [address]or Rd. [facility], [address] Urobilinogen (U) [Mass/Vol]0.2 mg/dLNormal(0.2 - <2.0) [facility] ClinicComment on above:Performed By: #### CBC-D, CMP, UAFLX, ENA6, *GAGE- T, ACAX3, PCR-R, C3-C4, ESRCRP, VD25, CK, HBCA, HBSAB, CCP, RHF #### [facility] [address] [facility], [address] VITAMIN D, 25 HYDROXYon 94-14-1976BPHGTRL D, 2536.9 NG/MLNormal(30.0 - 100.0)Uk HealthcareComment on above:Result Comment: * * * VITAMIN D, 25 HYDROXY GENERAL GUIDELINE * * * DEFICIENCY = < OR = 20.0 NG/ML INSUFFICIENCY = 20.1 - 29.9 NG/ML SUFFICIENCY = 30.0 - 100.0 NG/ML TOXICITY = > 100.1 NG/MLPerformed By: #### CBC-D, CMP, UAFLX, ENA6, *GAGE-T, ACAX3, PCR-R, C3-C4, ESRCRP, VD25, CK, HBCA, HBSAB, CCP, RHF #### [facility] [address] [facility], [address] Office Visiton [id number]-up [id number] Franklin Leiva 1990 Provider Department Center 06/10/2024 BRISEIDA LEON Family History Problem Relation Age of Onset Other Mother Heart failure Maternal Grandmother Atrial fibrillation Maternal Grandmother Other Maternal Great-Grandmother Family Status - Relation Status Age at Mother Maternal Grandmother Maternal Great-Grandmother Other Level of Service:[address] [place] OFFICE/OUTPATIENT ESTABLISHED LOW [facility] CenterOffice [facility] 97-94-2519Xnastg-up visit [id number] Franklin Leiva 1990 Provider Department Center 05/03/2024 BRISEIDA LEON Family History Problem Relation Age of Onset Other Mother Heart failure Maternal Grandmother Atrial fibrillation Maternal Grandmother Family Status - Relation Status Age at Mother Maternal Grandmother Level of Service:[address] [place] OFFICE/OUTPATIENT NEW MODERATE MDM 45 MINUTESNormal [facility] CenterGeneral Surgery Office/Clinic Noteon 85-82-7188Hvxifag Surgery Office/Clinic NoteChief Complaint post operative follow [...] NIKOLAI HENRY, KASIA [place] Only if needed [address] [place] [address]- Additional Instructions: Problem List/Past Medical History Ongoing [...] Recorded SARS-CoV-2 (COVID-19) mRNA BNT-162b2 vax 07/13/2020 RecordedNormCleveland Clinic Akron GeneralComment on above:Result Comment: Electronically Signed By: NIKOLAI HENRY, Po Mackey\.br\Date and Time Signed: 12/01/22 13:04 EDTAmbulatory Visit Summaryon 58-96-4113Hcwtstjqmv Visit Summary FRANKLIN LEIVA :1990 Visit Date:11/12/2022 [...] abdominal pain Rt flank pain Symptomatic cholelithiasis [facility] CenterPathology Noteon 11-09-2022 Pathology [id number]#1.00CD:[address] [place], [place] [address]Operative Reporton 34-79-8128Ehltxrfvx Report [id number]#1.00CD:127NoSelect Medical Specialty Hospital - [facility] SouthPREG HCG QUALon 32-17-5179QUBIYLOIN, QUALNegativeNormalNEGATIVEThe [facility] Medical CenterComment on above:Performed By: #### PREG #### [facility] [address] [place] [address] Dr. Krys Bledsoe for Procedure/Surgeryon 28-51-0188Elnygnk for Procedure/[id number]#1.00CD:[address] [place], [place] [address]Pre-Certification Formon 54-74-1028Lqd-Certification Form [id number]#1.00CD:127NormCleveland Clinic Akron GeneralAmbulatory Visit Summaryon 34-44-7152Hgsxkavuyp Visit Summary FRANKILN LEIVA :1990 Visit Date:10/08/2022 Ambulatory Visit Instructions [...] Right sided abdominal pain Rt flank pain [facility] CenterGeneral Surgery Office/Clinic Noteon 52-98-6863Moxwvuz Surgery Office/Clinic NoteChief Complaint EGD follow up [...] # 90 cap(s), Refills(s) 1, [id number] 157.4, cm, 09/26/22 10:43:00 EDT, Height/Length Dosing, 91.7, kg, 09/26/22 10:43:00 EDT, Weight Dosing E&M of Est. Patient Moderate 30-39 Min 94571 2. Hiatal hernia with GERD, (K44.9: Diaphragmatic hernia without obstruction or gangrene)Diaphragmatic hernia without obstruction or gangrene continue Nexium and Carafate; low fat diet Ordered: esomeprazole, 40 mg = 1 cap(s), Oral, Daily, # 90 cap(s), Refills(s) 1, [id number], 157.4, cm, 09/26/22 10:43:00 EDT, Height/Length Dosing, 91.7, kg, 09/26/22 10:43:00 EDT, Weight Dosing E&M of Est. Patient Moderate 30-39 Min 22198 3. 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 Patient Moderate 30-39 Min 97779 Follow-up No qualifying data available Problem List/Past [...] month, 09/26/2022 Substance Ab (more content not included)...[facility] Comment on above:Result Comment: Electronically Signed By: NIKOLAI HENRY, Po Moore\Date and Time Signed: 10/08/22 15:53 EDTRAD - MRI Reporton 06-15-3652GSR - MRI [id number]#1.00CD:[address] [place], [place] [address]Pathology Noteon 76-89-9313Cpkqpuala Note [id number]#1.00CD:[address] [place], [place] [address]MRI ABDOMEN WO CONon 91-61-5802HIP ABDOMEN WO CONEXAMINATION: MRI ABDOMEN WO CON [...] Electronically authenticated by: VERONICA VELARDE Date: 2022-10-06 08:[address] [place], [place] [address]Operative Reporton 12-75-8528Iidorxnmm Report [id number]:[address] [place], [place] [address]PREG HCG QUALon 46-89-4782OGNCEHWQJ, QUALNegativeNormalNEGATIVEThe [facility] Medical CenterComment on above:Performed By: #### PREG #### [facility] [address] [place] [address] Dr. Krys Anand Reportson 51-23-5353Xhe Reports [id number]:127[facility]eral[facility] AUTO DIFFon 70-29-8205LBAK #0.0 103/ulNormal0.0-0.1The [facility] Medical CenterComment on above:Performed By: #### CBC #### [facility] [address] [place] [address] Dr. Krys DiazBasophils/100 WBC (Bld)0.5 %Normal0.2-2.0[facility] Comment on above:Performed By: #### CBC #### [facility] [address] [place] [address] Dr. Krys Goodson #0.0 103/ulNormal0.0-0.7The [facility] Medical CenterComment on above: Performed By: #### CBC #### [facility] [address] [place] [address] Dr. Krys Jimenezosinophils/100 WBC (Bld)0.6 %Critically low0.9-7.0The [facility] Medical CenterComment on above:Performed By: #### CBC #### [facility] [address] [place] [address] Dr. Krys Jimenezrythrocyte distribution width (RBC) [Ratio]12.8 %Arjnja16.0-15.[address] Vincent Medical CenterComment on above:Performed By: #### CBC #### [facility] [address] [place] [address] Dr. Krys Goodatocrit (Bld) [Volume fraction]40.0 %Pxywak74.0-48.0[facility] Vincent Medical CenterComment on above:Performed By: #### CBC #### [facility] [address] [place] [address] Dr. Yilan ChangHemoglobin (Bld) [Mass/Vol]13.4 g/lHTnevyg39.0-16.0The [facility] CenterComment on above:Performed By: #### CBC #### [facility] [address] [place] [address] Dr. Krys Padron #0.03 10e3/ulNormal0.00-0.03The [facility] CenterComment on above:Performed By: #### CBC #### [facility] [address] [place] [address] Dr. Krys Padron %0.5 %Normal0.0-0.5The [facility] CenterComment on above: Performed By: #### CBC #### [facility] [address] [place] [address] Dr. Krys Braga #1.7 103/ulNormal1.2-3.8The [facility] CenterComment on above:Performed By: #### CBC #### [facility] [address] [place] [address] Dr. Krys Velasquezhocytes/100 WBC (Bld)26.7 %Vlumdt83.5-60.0The [facility] CenterComment on above:Performed By: #### CBC #### [facility] [address] [place] [address] Dr. Krys KyleUAL DIFF REQNONormalThe [facility] CenterComment on above: Performed By: #### CBC #### [facility] [address] [place] [address] Dr. Krys Berger (RBC) [Entitic mass]30.8 gqPcdyjs16.7-34.0The [facility] CenterComment on above:Performed By: #### CBC #### [facility] [address] [place] [address] Dr. Krys Berger (RBC) [Mass/Vol]33.5 g/hOMgbjgz68.9-35.2The [facility] CenterComment on above:Performed By: #### CBC #### [facility] [address] [place] [address] Dr. Krys Chisholm (RBC) [Entitic vol]92.0 wDFwokxq98.0-99.0The [facility] CenterComment on above:Performed By: #### CBC #### [facility] [address] [place] [address] Dr. Krys Galvan #0.5 103/ulNormal0.3-0.8The [facility] CenterComment on above:Performed By: #### CBC #### [facility] [address] [place] [address] Dr. Krys Whitneyocytes/100 WBC (Bld)7.9 %Normal1.7-12.0The [facility] Comment on above:Performed By: #### CBC #### [facility] [address] [place] [address] Dr. Krys Burns #4.1 103/ulNormal1.4-6.5The [facility] CenterComment on above:Performed By: #### CBC #### [facility] [address] [place] [address] Dr. Krys Mezautrophils/100 WBC (Bld)63.8 %Esrtxx75.0-75.0The [facility] CenterComment on above:Performed By: #### CBC #### [facility] [address] [place] [address] Dr. Krys Desouzalet mean volume (Bld) [Entitic vol]10.1 fLNormal9.5-13.5The [facility] CenterComment on above:Performed By: #### CBC #### [facility] [address] [place] [address] Dr. Krys DiazPLT222 103/jhWusbtp969-218Bha [facility] CenterComment on above: Performed By: #### CBC #### [facility] [address] [place] [address] Dr. Krys DiazRBC4.35 106/ulNormal4.20-5.40The [facility] CenterComment on above:Performed By: #### CBC #### [facility] [address] [address] [address] Krys DiazWBC6.3 103/ulNormal4.0-11.0The [facility] CenterComment on above: Performed By: #### CBC #### [facility] [address] [address] [address] Krys DiazLIPASEon 94-88-4086Oingrf [Catalytic activity/Vol]85.0 U/LNormal 73.0-393.0The [facility] CenterComment on above:Performed By: #### BMP, LIVER, LIPA ####[facility] [address] [address]Dr. Krys DiazLIVER PROFILEon 30-80-0611Joscipt [Mass/Vol]3.6 g/dLNormal 3.4-5.0The [facility]aritan Hospitalment on above:Performed By: #### BMP, LIVER, LIPA ####[facility] [address] [address]Dr. Krys DiazAlbumin/Globulin [Mass ratio]0.9 {ratio}NormalThe [facility] Comment on above:Performed By: #### BMP, LIVER, LIPA ####[facility] [address] [address]Dr. Krys ChangALP [Catalytic activity/Vol]63 U/PDnqsuz75-990Sbi [facility] Hospitalment on above:Performed By: #### BMP, LIVER, LIPA ####[facility] [address] [address]Dr. Krys DiazALT [Catalytic activity/Vol]65 U/L Critically fgkz59-35Uaj [facility] Hospitalment on above:Performed By: #### BMP, LIVER, LIPA ####[facility] [address] [address]Dr. Krys ChangAST [Catalytic activity/Vol]35 U/RIrpcxw40-27Cyy [facility] Hospitalment on above:Performed By: #### BMP, LIVER, LIPA ####[facility] [address] [address]Dr. Krys DiazBILI, CONJUGATED0.1 mg/dLNormal0.0-0.2The [facility] CenterComment on above:Performed By: #### BMP, LIVER, LIPA ####[facility] [address] [address]Dr. Krys ChangBilirubin [Mass/Vol]0.5 mg/dL Normal0.2-1.0The [facility] CenterComment on above:Performed By: #### BMP, LIVER, LIPA ####[facility] [address] [address]Dr. Krys ChangGlobulin (S) [Mass/Vol]3.9 g/dLNormalThe [facility] Comment on above:Performed By: #### BMP, LIVER, LIPA ####[facility] [address] [address]Dr. Krys ChangProtein [Mass/Vol]7.5 g/dLNormal6.4-8.2The [facility] CenterComment on above:Performed By: #### BMP, LIVER, LIPA ####[facility] [address] [address]Dr. Krys DiazPROF CHEM 8 (BAS METB)on 09-29-2022 Anion gap [Moles/Vol]9.5 mmol/LNormalMercy Health St. Vincent Medical CenterComment on above: Performed By: #### BMP, LIVER, LIPA #### [facility] [address] [address] [address] Krys DiazCalcium [Mass/Vol]9.0 mg/dLNormal8.5-10.1[facility] Comment on above:Performed By: #### BMP, LIVER, LIPA #### [facility] [address] [address] [address] Krys DiazChloride [Moles/Vol]106 mmol/DIjruwg99-152Kwm [facility] Comment on above:Performed By: #### BMP, LIVER, LIPA #### [facility] [address] [address] [address] Krys DiazCO2 [Moles/Vol]27.3 mmol/FNnkpvc84.0-32.0[facility] Comment on above:Performed By: #### BMP, LIVER, LIPA #### [facility] [address] [address] [address] Krys DiazCreatinine [Mass/Vol]0.80 mg/dLNormal0.55-1.02[facility] Medical CenterComment on above:Performed By: #### BMP, LIVER, LIPA #### [facility] [address] [address] [address] Krys JimenezGFR-AF BRAZILIAN>60Normal>=60The [facility] CenterComment on above:Performed By: #### BMP, LIVER, LIPA #### [facility] [address] [place] [address] Dr. Krys JimenezGFR-NON AF BRAZILIAN>60Normal>=60The [facility] CenterComment on above:Performed By: #### BMP, LIVER, LIPA #### [facility] [address] [place] [address] Dr. Krys DiazGlucose [Mass/Vol]100 mg/fZBbaldd26-193IuaMercy Health St. [facility] Comment on above:Performed By: #### BMP, LIVER, LIPA #### [facility] [address] [place] [address] Dr. Krys DiazPotassium [Moles/Vol]3.8 mmol/LNormal3.5-5.1[facility] Comment on above:Performed By: #### BMP, LIVER, LIPA #### [facility] [facility] [address] [address] [address] Krys Peguerodium [Moles/Vol]139 mmol/SZeeqfd079-618ZdrMercy Health St. [facility] Comment on above:Performed By: #### BMP, LIVER, LIPA #### [facility] [address] [place] [address] Dr. Krys DiazUrea nitrogen [Mass/Vol]8.0 mg/dLNormal7.0-18.0[facility] Vincent Medical CenterComment on above:Performed By: #### BMP, LIVER, LIPA #### [facility] [address] [place] [address] Dr. Krys DiazUrea nitrogen/Creatinine [Mass ratio]10.0 mg/mgCleveland ClinicComment on above:Performed By: #### BMP, LIVER, LIPA #### [facility] [address] [address] [address] Krys DiazAmbulatory Visit Summaryon 02-20-3171Xqopznypuh Visit Summary FRANKLIN LEIVA :1990 Visit Date:09/26/2022 [...] 37.0-37.9, adult Cholelithiasis Eczema Left ovarian cyst [facility] CenterConsent for Procedure/Surgeryon 26-18-0588Jnjtbdx for Procedure/Surgery [id number]#1.00CD:[address] [place], [place] [address]Pre-Certification Formon 43-11-1078Sda-Certification Form [id number]#1.00CD:127[facility] Note-Physicianon 88-16-8700PG Note-Physician [id number]#1.00CD:127[facility] CenterPhysician Referralon 45-92-3900Ssphontvh Referral [id number]#1.00CD:127[facility] Medical CenterUS SINGLE QUAD RT UPPERon 50-62-7453DO SINGLE QUAD RT UPPEREXAM: US SINGLE QUAD [...] Electronically authenticated by: SCOTTY COLINDRES Date: 2022-09-14 15:[address] [place] [address] ABD/PELV W CONon [id number] ABD/PELV W CONEXAMINATION: CT ABD/PELV W CON [...] Electronically authenticated by: Amber CARRILLO Date: 2022-09-08 23:07[facility] AUTO DIFFon [id number] #0.0 103/ulNormal0.0-0.1The [facility] CenterComment on above:Performed By: #### CBC #### [facility] [address] [place] [address] Dr. Krys DiazBasophils/100 WBC (Bld)0.3 %Normal0.2-2.0[facility] Comment on above:Performed By: #### CBC #### [facility] [address] [place] [address] Dr. Krys Goodson #0.1 103/ulNormal0.0-0.7The [facility] CenterComment on above: Performed By: #### CBC #### [facility] [address] [place] [address] Dr. Krys Jimenezosinophils/100 WBC (Bld)0.7 %Critically low0.9-7.0[facility]. Vincent Medical CenterComment on above:Performed By: #### CBC #### [facility] [address] [place] [address] Dr. Krys Jimenezrythrocyte distribution width (RBC) [Ratio]12.8 %Taaekl15.0-15.0 The [facility] CenterComment on above:Performed By: #### CBC #### [facility] [address] [place] [address] Dr. Krys DiazHematocrit (Bld) [Volume fraction]38.1 %Tlqkkw05.0-48.0[facility] Vincent Medical CenterComment on above:Performed By: #### CBC #### [facility] [address] [place] [address] Dr. Krys DiazHemoglobin (Bld) [Mass/Vol]12.9 g/gSBavtbs13.0-16.0The [facility] CenterComment on above:Performed By: #### CBC #### [facility] [address] [place] [address] Dr. Krys Padron #0.01 10e3/ulNormal0.00-0.03The [facility] CenterComment on above:Performed By: #### CBC #### [facility] [address] [place] [address] Dr. Krys Padron %0.1 %Normal0.0-0.5The [facility] CenterComment on above: Performed By: #### CBC #### [facility] [address] [place] [address] Dr. Krys Braga #2.4 103/ulNormal1.2-3.8The [facility] CenterComment on above:Performed By: #### CBC #### [facility] [address] [place] [address] Dr. Krys Velasquezhocytes/100 WBC (Bld)35.8 %Qbxkyi33.5-60.0The [facility] CenterComment on above:Performed By: #### CBC #### [facility] [address] [place] [address] Dr. Krys KyleUAL DIFF REQNONormalThe [facility] CenterComment on above: Performed By: #### CBC #### [facility] [address] [place] [address] Dr. Krys Berger (RBC) [Entitic mass]30.0 wnOvwowo36.7-34.0The [facility] CenterComment on above:Performed By: #### CBC #### [facility] [address] [place] [address] Dr. Krys Berger (RBC) [Mass/Vol]33.9 g/gCXrusdf28.9-35.2The [facility] CenterComment on above:Performed By: #### CBC #### [facility] [address] [place] [address] Dr. Krys Chisholm (RBC) [Entitic vol]88.6 pSFijahw71.0-99.0The [facility] CenterComment on above:Performed By: #### CBC #### [facility] [address] [place] [address] Dr. Krys Galvan #0.5 103/ulNormal0.3-0.8The [facility] CenterComment on above:Performed By: #### CBC #### [facility] [address] [address] [address] Krys Whitneyocytes/100 WBC (Bld)7.0 %Normal1.7-12.0The [facility] Comment on above:Performed By: #### CBC #### [facility] [address] [place] [address] Dr. Krys Burns #3.7 103/ulNormal1.4-6.5The [facility] CenterComment on above:Performed By: #### CBC #### [facility] [address] [place] [address] Dr. Krys Mezautrophils/100 WBC (Bld)56.1 %Nitpfb24.0-75.0The [facility] CenterComment on above:Performed By: #### CBC #### [facility] [address] [place] [address] Dr. Krys Paredes mean volume (Bld) [Entitic vol]8.9 fLCritically low 9.5-13.5The [facility] CenterComment on above:Performed By: #### CBC #### [facility] [address] [place] [address] Dr. Krys DiazPLT287 103/qhYcrtxj352-635Nlt [facility] CenterComment on above: Performed By: #### CBC #### [facility] [address] [place] [address] Dr. Krys DiazRBC4.30 106/ulNormal4.20-5.40The [facility] CenterComment on above:Performed By: #### CBC #### [facility] [address] [place] [address] Dr. Krys DiazWNAVID6.7 103/ulNormal4.0-11.0The [facility] CenterComment on above: Performed By: #### CBC #### [facility] [address] [place] [address] Dr. Krys Kim URINE PROFILEon 66-35-2692Cjaovttlt Ql (U)SMALLAbnormal NEGATIVEMercy Health St. Vincent Medical CenterComment on above:Performed By: #### YAHIR ERUR #### [facility] [address] [place] [address] Dr. Krys DiazClarity (U)CLEARNormalCLEARMercy Health St. Vincent Medical CenterComment on above: Performed By: #### YAHIR ERUR #### [facility] [address] [place] [address] Dr. Krys DiazColor (U)YELLOWNormalYELLOWMercy Health St. Vincent Medical CenterComment on above: Performed By: #### YAHIR ERUR #### [facility] [address] [place] [address] Dr. Krys MejíaNUNU micrscopic examination will be performed if indicated. NormalThe [facility] CenterComment on above:Performed By: #### YAHIR ERUR #### [facility] [address] [place] [address] Dr. Krys DiazGlucose Ql (U)NegativeNormalNEGATIVEMercy Health St. Vincent Medical CenterComment on above:Performed By: #### YAHIR ERUR #### [facility] [address] [place] [address] Dr. Krys DiazHemoglobin Ql (U)LARGEAbnormalNEGATIVEMercy Health Anderson Hospital on above:Performed By: #### YAHIR ERUR #### [facility] [address] [place] [address] Dr. Krys DiazKetones Ql (U)NegativeNormalNEGATIVEMercy Health St. Vincent Medical CenterComment on above:Performed By: #### YAHIR ERUR #### [facility] [address] [place] [address] Dr. Krys DiazLEUKOCYTESNegativeNormalNEGATIVEMercy Health St. Vincent Medical CenterComment on above:Performed By: #### KATHI SINCLAIRR #### [facility] [address] [place] [address] Dr. Krys Sarabia Ql (U)NegativeNormalNEGATIVEThe [facility] CenterComment on above:Performed By: #### KATHI SINCLAIRR #### [facility] [address] [place] [address] Dr. Krys DiazpH (U)5.5 [pH]Normal5-9The [facility] CenterComment on above: Performed By: #### KATHI SINCLAIRR #### [facility] [address] [place] [address] Dr. Krys DiazProtein (U) [Mass/Vol]30 mg/dLAbnormalNEGATIVE/ TRACEThe [facility] CenterComment on above:Performed By: #### KATHI SINCLAIRR #### [facility] [address] [place] [address] Dr. Krys DiazSPEC GRAVITY>=1.261Gftrzqtx6.005-<=1.025The [facility] Comment on above:Performed By: #### JORGE SINCLAIR #### [facility] [address] [place] [address] Dr. Krys Cast MICRO INDINDICATEDNormalThe [facility] CenterComment on above: Performed By: #### KATHI SINCLAIRR #### [facility] [address] [place] [address] Dr. Krys Rothbilinogen Qn (U)1.0 {Paramjit'U}/dLNormal0.2 - 1.0The [facility] CenterComment on above:Performed By: #### KATHI SINCLAIRR #### [facility] [address] [place] [address] Dr. Krys DiazLIPASEon 51-82-8223Sykmlr [Catalytic activity/Vol]82.0 U/LNormal 73.0-393.0The [facility] CenterComment on above:Performed By: #### CMP, LIPA ####[facility] [address] [address]. Amylan ChangPREG HCG QUALon 57-90-3609LEEUTRJZM, QUALNegativeNormalNEGATIVEThe [facility] CenterComment on above:Performed By: #### PREG ####[facility] [address] [place], [place] [address]Dr. Krys ChangPROF 14(COMP METB)on 94-00-3226Rfyhisf [Mass/Vol]3.7 g/dLNormal3.4-5.0The [facility] Comment on above:Performed By: #### CMP, LIPA ####[facility] [address] [place], [place] [address]Dr. Krys Diaz Albumin/Globulin [Mass ratio]1.1 {ratio}NormalThe [facility] CenterComment on above:Performed By: #### CMP, LIPA ####[facility] [address] [place], [place] [address]Dr. Krys JoeALP [Catalytic activity/Vol]67 U/L Djejev81-926Wam [facility] CenterComment on above:Performed By: #### CMP, LIPA ####[facility] [address] [place], [place] [address]Dr. Krys ChangALT [Catalytic activity/Vol]38 U/XRazvxf36-67Chk [facility] Comment on above:Performed By: #### CMP, LIPA ####[facility] [address] [place], [place] [address]Dr. Amyalejandro JoeAnion gap [Moles/Vol]12.4 mmol/LNormalThe [facility] CenterComment on above:Performed By: #### CMP, LIPA ####[facility] Untel[address] [place], [place] [address]Dr. Krys ChangAST [Catalytic activity/Vol]19 U/ZPvmabm04-84Szj [facility] CenterComment on above:Performed By: #### CMP, LIPA ####[facility] Z[address] [place], [place] [address]Dr. Amyalejandro Diaz Bilirubin [Mass/Vol]0.4 mg/dLNormal0.2-1.0The [facility] CenterComment on above: Performed By: #### CMP, LIPA ####[facility] [address] [place], [place] [address]Dr. Yilan ChangCalcium [Mass/Vol]8.6 mg/dLNormal 8.5-10.1The [facility] CenterComment on above:Performed By: #### CMP, LIPA ####[facility] [address] [place], [place] [address]Dr. Yilan ChangChloride [Moles/Vol]105 mmol/NLhkkkv50-231Gzs [facility] Comment on above:Performed By: #### CMP, LIPA ####[facility] [address] [place], [place] [address]Dr. Yilan ChangCO2 [Moles/Vol]25.9 mmol/JDmvuzo37.0-32.0The [facility] CenterComment on above: Performed By: #### CMP, LIPA ####[facility] [address] [place], [place] [address]Dr. Yilan ChangCreatinine [Mass/Vol]0.86 mg/dLNormal 0.55-1.02The [facility] CenterComment on above:Performed By: #### CMP, LIPA ####[facility] [address] [place], [place] [address]Dr. Yilan ChangEGFR-AF BRAZILIAN>60Normal>=60The [facility] CenterComment on above: Performed By: #### CMP, LIPA ####[facility] [address] [place], [place] [address]Dr. Yilan ChangEGFR-NON AF BRAZILIAN>60Normal>=60The [facility] CenterComment on above:Performed By: #### CMP, LIPA ####[facility] [address]yp[address] [place], [place] [address]Dr. Yilan Diaz Globulin (S) [Mass/Vol]3.5 g/dLNormalThe [facility] CenterComment on above: Performed By: #### CMP, LIPA ####[facility] [address] [place], [place] [address]Dr. Krys ChangGlucose [Mass/Vol]102 mg/xUNwteft85-126 The [facility] CenterComment on above:Performed By: #### CMP, LIPA ####[facility] [address] [address]Dr. Krys Diaz Potassium [Moles/Vol]3.3 mmol/LCritically low3.5-5.1The [facility] CenterComment on above:Performed By: #### CMP, LIPA ####[facility] [address] [address]Dr. Amyalejandro ChangProtein [Mass/Vol]7.2 g/dLNormal 6.4-8.2The [facility] CenterComment on above:Performed By: #### CMP, LIPA ####[facility] [address] [address]Dr. Krys ChangSodium [Moles/Vol]140 mmol/YVwyqqc627-793Ekt [facility] CenterComment on above:Performed By: #### CMP, LIPA ####[facility] [address] [address]Dr. Krys ChangUrea nitrogen [Mass/Vol]6.0 mg/dL Critically low7.0-18.0The [facility] CenterComment on above:Performed By: #### CMP, LIPA ####[facility] [address] [address]Dr. Amylan ChangUrea nitrogen/Creatinine [Mass ratio]7.0 mg/mgNormalThe [facility] CenterComment on above:Performed By: #### CMP, LIPA ####[facility] [address] [address]Dr. Krys DiazURINE MICROSCOPIC ONLYon 82-84-8844VGERODHFWOVKANdgyolmmDLEN SEENMercy Health St. [facility] Comment on above:Performed By: #### JORGE SINCLAIR #### [facility] [address] [address] [address] Krys Tobias identified Cx Nom (U)NOT INDICATEDNormWestern Reserve Hospitale [facility] CenterComment on above:Performed By: #### YAHIR, ERUR #### [facility] [address] [address] [address] Krys DiazCASTNONE SEENNormalNONE SEENMercy Health St. Vincent Medical CenterComment on above:Performed By: #### ARASHRO, ERUR #### [facility] [address] [address] [address] Krys DiazCrystals LM Nom (Urine sed)NONE SEENNormalNONE SEENThe [facility] CenterComment on above:Performed By: #### YAHIR, ERUR #### [facility] [address] [address] [address] Marcano ChangEpithelial cells LM Ql (Urine sed)MODERATEAbnormalNONE SEEN /RARE The [facility] CenterComkalkaska memorial health center on above:Performed By: #### YAHIR, ERUR #### [facility] [address] [address] [address] Krys DiazMUCOUSMODERATEAbnormalNONE SEENMercy Health St. Vincent Medical CenterComkalkaska memorial health center on above:Performed By: #### YAHIR, ERUR #### [facility] [address] [address] [address] Krys DiazAvosvWCB06-74Bovralcs2-4Vzf [facility] CenterComkalkaska memorial health center on above: Performed By: #### YAHIR, ERUR #### [facility] [address] [address] [address] Krys DiazWBCNONE SEENNormalNONE SEENMercy Health St. Vincent Medical CenterComkalkaska memorial health center on above: Performed By: #### YAHIR, ERUR #### [facility] [address] [address] [address] Krys Diaz Vital Signs Date TimeVital SignValuePerforming YuzqnnkqrUeianyim86-02-6200 09:36-0400Body aoqzkw555.5 Deepak Arzate MD Work Phone: [facility] CenterMxypzltnxx28-63-6456 09:36-0400Body mass index (BMI) [Ratio]40.24 kg/a3ApswrBarby Arzate MD Work Phone: [facility] HospitalEysqysqkry96-21-4593 09:36-0400Body rubhkn04.79 kgBarby Arzate MD Work Phone: [facility] HospitalBxrdyfiqqh31-00-2421 09:36-0400Diastolic blood xahdlfre31 mm[Hg]Barby Arzate MD Work Phone: [facility] HospitalJylcmwwfbz04-58-2129 09:36-0400Heart rate75 /min Barby Arzate MD Work Phone: [facility] HospitalPozmdusfmo59-93-2398 09:36-0400Respiratory rate16 /minBarby Arzate MD Work Phone: [facility] HospitalYsmfksqmxx09-65-1591 09:36-8710GrK9% (BldA) [Mass fraction]99 %Barby Arzate MD Work Phone: [facility] HospitalDwcxensrbc28-51-0064 09:36-0400Systolic blood spguqeec78 mm[Hg]Barby Arzate MD Work Phone: [facility] HospitalNgcbatpgox01-38-4329 11:30-0400Body mass index (BMI) [Ratio]40.6 kg/m2Johnnygricel Nataprawira DO Work Phone: [facility] HospitalSenshotduw76-52-5456 11:30-0400Body qqskii129.7 kgMona Nataprawira DO Work Phone: [facility] CenterJhvthvycju21-46-1135 11:30-0400Diastolic blood zudvixkb62 mm[Hg]Barbie Nataprawira DO Work Phone: [facility] CenterTkoznxxvfk30-64-0785 11:30-0400Systolic blood jmuagrmq987 mm[Hg]Barbie Nataprawira DO Work Phone: [facility] HospitalVxpbtdmyns49-03-1728 09:53-0400Body fwpuws284.5 Deepak Arzate MD Work Phone: [facility] HospitalAowpehtlrw46-32-2595 09:53-0400Body mass index (BMI) [Ratio]40.6 kg/t9QerutBarby Arzate MD Work Phone: [address] [place], [place] [address] 09:53-0400Body xmzevo833.7 kgBarby Arzate MD Work Phone: [phone] [place], [place] [address]Kmmebziyyd84-68-7286 09:53-0400Diastolic blood ftnalbwo00 mm[Hg]Barby Arzate MD Work Phone: [phone] [place], [place] [address]Hsnxyejpdb91-34-3110 09:53-0400Heart rate78 /min Barby Arzate MD Work Phone: [phone]04-23-2025 09:53-0400Respiratory rate18 /minBarby Arzate MD Work Phone: [phone]04-23-2025 09:53-7004YeK3% (BldA) [Mass fraction]99 %Barby Arzate MD Work Phone: [phone] [place], [place] [address]Newbirczwm99-16-8147 09:53-0400Systolic blood ygilirgz281 mm[Hg]Barby Arzate MD Work Phone: [phone] [place], [place] [address]Buwuwrkneq56-10-5403 10:37-0400Blood Pressure LocationMichael NILL [phone]-[facility]zirwMer[facility] 09-26-2022 10:37-0400Diastolic blood ecorxasr76 mm[Hg]Po NILL [phone]-IqthqMer[facility] Health [facility] 09-26-2022 10:37-0400Heart rate80 /minMichael NILL [phone]-RugbpMer[facility] Health [facility] 09-26-2022 10:37-0400Respiratory rate16 /minMichael NILL [phone]-HvxjoMercy Health [facility] 09-26-2022 10:37-0400Systolic blood elnihbay709 mm[Hg]Po NILL [phone]-ClbahMercy Health [facility] Encounters Encounter DateEncounter TypeCare ProviderFacilityStart: 04-12-2025 End: 49-46-3816QzwqueuelSyhrkoy J Martinez PT Work Phone: [facility] MedicineComment on above: Cervicalgia (Primary Dx); Intractable migraine without status migrainosus, unspecified migraine type; Balance disorderStart: 04-05-2025 End: 71-43-6962Hcxgmp King Patterson PT Work Phone: [facility] MedicineStart: 04-05-2025 End: 13-46-2542Hjcnkw King Patterson PT Work Phone: [facility] MedicineStart: 04-05-2025 End: 51-74-0447fgjnlxxxeyHqbkzce J Martinez PT Work Phone: [facility] MedicineComment on above: Cervicalgia (Primary Dx); Intractable migraine without status migrainosus, unspecified migraine typeStart: 03-29-2025 End: 08-39-2453Shltxd King Patterson PT Work Phone: [facility] MedicineStart: 03-29-2025 End: 10-08-6657Pgsceogurvinder Patterson PT Work Phone: [facility] MedicineStart: 03-29-2025 End: 33-32-1247NuuvowhapBctlxks J Martinez PT Work Phone: [facility] MedicineComment on above: Cervicalgia (Primary Dx); Balance disorderStart: 03-22-2025 End: 96-35-0424Rbfseh King Patterson PT Work Phone: [facility] MedicineStart: 03-22-2025 End: 89-01-3461Rpgwlfgurvinder Patterson PT Work Phone: [facility] MedicineStart: 03-22-2025 End: 28-86-5223SxdilknundYnsqnvi J Martinez PT Work Phone: [facility] [place] [facility] MedicineComment on above: Cervicalgia (Primary Dx); Intractable migraine without status migrainosus, unspecified migraine type; Balance disorderStart: 12-28-2024 End: 81-38-1156Lnmxnw Denzel Arzate MD Work Phone: [facility] [place] EndocrinologyStart: 12-28-2024 End: 15-68-6559Begkcg Denzel Arzate MD Work Phone: [facility]ocrinologyStart: 12-28-2024 End: 63-96-9052Voibov outpatient visit 25 minutesBarby Arzate MD Work Phone: [facility] EndocrinologyComment on above:Weight gain (Primary Dx); Vitamin D deficiency; Encounter for dietary consultation; Class 3 severe obesity due to excess calories without serious comorbidity with body mass index (BMI) of 40.0 to 44.9 in adult ([facility])Start: 11-09-2024 End: 12-41-2877Falgrbz encounter statusBarbie Soriano Alton DO Work Phone: [facility] Work Phone: start: 11-09-2024 End: 38-78-5741Kgtqwiax preventive med est patient 18-39 yrsBarbie Dang DO Work Phone: [facility] OBComment on above:Encounter for gynecological examination (general) (routine) with abnormal findings (Primary Dx); Candidiasis of vulva; Vulvar itching; Screening for malignant neoplasm of cervix; Encounter for screening for human papillomavirus (HPV)Start: 09-21-2024 End: 39-42-1654Aznera Denzel Arzate MD Work Phone: [facility] ENDOCRINOLOGYStart: 09-21-2024 End: 38-19-2313Prrdxi Denzel Arzate MD Work Phone: [facility] ENDOCRINOLOGYStart: 09-21-2024 End: 25-82-6182Ngbxmn outpatient new 45 minutesBarby Arzaet MD Work Phone: [facility] ENDOCRINOLOGYComment on above:Weight gain (Primary Dx); Vitamin D deficiency; Encounter for dietary consultation; Class 3 severe obesity due to excess calories without serious comorbidity with body mass index (BMI) of 40.0 to 44.9 in adultStart: 06-10-2024 End: 18-72-7202ileyvwryueSGTLFYTAdams County Hospital Start: 05-03-2024 End: 72-47-5068golgcjbinzMFSJWOXPomerene Hospital Start: 11-12-2022 End: 05-80-7182gxmqludwxpKswnmzk R NILLFacility:[facility]art: 11-12-2022 End: 62-98-2885Srukwry encounter procedureMichael R NILL General Surgery Nill/Said [place] Start: 10-29-2022 End: 40-64-9634eeizfzaofiIL NGUYEN COOPERY .Facility:U5Savab: 67-34-6888Mdcwtdqxf for other preprocedural examinationDR PO MENCHACA .[facility]2022 End: 08-06-1337hndpygdhyuOC NGUYEN ZAMORANO .Facility:A6Wamhi: 10-21-2022 End: 68-83-0083Lqrfizxij for other preprocedural examinationDR NGUYEN ZAMORANO . Facility:Q9Swvyp: 10-08-2022 End: 01-10-1101qaqoqriccfUygcjnn R NILLFacility:[facility]: 10-08-2022 End: 08-37-1245Wzlhreh encounter procedureMichael R NILL General Surgery Nill/Said [place] Start: 10-06-2022 End: 10-93-8991pjabreuuhzBO PO NILL .Facility:V5Blmlq: 10-01-2022 End: 70-13-0927jkezwekszaIS PO NILL .Facility:E3Gvvog: 09-29-2022 End: 15-25-6192yjayuhgwpqNU PO NILL .Facility:X5Vaqjo: 09-26-2022 End: 14-87-2422flptmuuqccYpummfp R NILLFacility: AndreiakStart: 09-26-2022 End: 17-37-8066Regbjiu encounter procedureMichael R NILL 229-3969Dxpqzn-RsxanKettering [facility] [place] Start: 83-62-8889ktkwbhuxrkGozmcqx NILLFacility: [place]vueStart: 28-96-4653pmkqojdmyeDrnrqbv NILLFacility:[facility]Start: 09-11-2022 End: 99-85-6734yyuyglxlhgHZ NGUYEN COOPERKarina .Facility:O7Wxwti: 09-08-2022 End: 43-66-1139muksqiltbpDW MILADY GABY .Facility:H1 Procedures DateProcedureProcedure DetailPerforming ClinicianStart: 28-66-0983TPZ, APT HPV,RFX 16/18,45Mona J Nataprawira DO Work Phone: start: 43-97-5903Uqnafb citrullinated peptide antibody Comment on above:Performed By: #### CBC-D, CMP, UAFLX, ENA6, *GAGE-T, ACAX3, PCR- R, C3-C4, ESRCRP, VD25, CK, HBCA, HBSAB, CCP, RHF #### [facility] [address] [facility], [address] Start: 79-10-2947Opjatenzgnzr cholecystectomyMichael NILL Start: 21-28-6715Hjsxtujgyje observation [Identifier] in Cervix by Cyto Judy Arzate MD Work Phone: Start: 34-31-0157TcddpqounjarikhkhyipieggmfDwbjdvs NILL None (qualifier value)Po NILL Plan of Treatment DateCare ActivityDetailAuthorStart: 42-74-9609Fesdwpmwz for malignant neoplasm of cervixNOMS HealthcareStart: 93-89-1417Etaxflhwn for malignant neoplasm of cervixNOMS HealthcareStart: 11-15-2025 End: 80-57-6940Nmnwhsl encounter procedureNOMS NB OBStart: 22-78-8901Unafafyse for malignant neoplasm of cervixPap SmearNOMS HealthcareStart: 05-03-2025 End: 25-04-5054Yrfpybi encounter tyghrqmgn96/03/2025 10:30 AM EST Office Visit [facility] [place] [facility] [address] [place] [address] Barby Arzate MD [address] [place] [address] NOMCele Patrick EndocrinologyStart: 04-19-2025 End: 05-60-8964cfkkuigpup19/19/2025 7:00 AM EST Treatment [facility] [place] [facility] [address] [place] [address] Po Patterson, PT [address] [place] [address] NOMC[facility]ational MedicineStart: 04-05-2025 End: 00-46-6767novjzvqsgw03/05/2025 7:00 AM EST Treatment [facility] [place] [facility] [address] [place] [address] Po Patterson, PT [address] [place] [address] [facility]ational MedicineStart: 03-29-2025 End: 47-74-1734merphgazpl15/29/2025 7:00 AM EDT Treatment [facility] [place] [facility] [address] [place] [address] Po Patterson, PT [address] [facility] [address] [place] [address] JUNIOR Patrick Occupational MedicineStart: 26-08-7977ZCKKH-19 Vaccine ( season)COVID-19 Vaccine ( season)NOMS HealthcareStart: 45-50-6373Iipmsvlth vaccinationNOKY Healthcare Start: 12-28-2024 End: 69-81-4485Jinyluw encounter procedureNOMS ENDOCRINOLOGYComment on above: ArrivedStart: 11-09-2024 End: 95-44-9706Uhxguyn encounter /11/2025 11:30 AM EDT Office Visit [facility] [address] [address] Barbie Dang, DO [address] [address] NOMCele COOK OBStart: 09-21-2024 End: 92-72-7307Jllmjveskngzw AntibodyThyroglobulin Antibody Lab Routine Weight gain Expected: 09/21/2024 (Approximate), Expires: 09/21/2025NO[facility] Work Phone: Comment on above:Expected: 09/21/2024 (Approximate), Expires: 09/21/2025Start: 09-21-2024 End: 00-73-1624Ctklloi peroxidase antibodyThyroid peroxidase antibody Lab Routine Weight gain Expected: 09/21/2024 (Approximate), Expires: 09/21/2025NOKY HealthcareComment on above:Expected: 09/21/2024 (Approximate), Expires: 09/21/2025Start: 09-21-2024 End: 88-18-5420Iecmyxtzpab [Units/volume] in Serum or PlasmaTSH Lab Routine Weight gain Expected: 09/21/2024 (Approximate), Expires: 09/21/2025NOKY HealthcareComment on above:Expected: 09/21/2024 (Approximate), Expires: 09/21/2025Start: 09-21-2024 End: 38-73-2220Kbllzdeak (T4) free [Mass/volume] in Serum or PlasmaT4, free Lab Routine Weight gain Expected: 09/21/2024 (Approximate), Expires: 09/21/2025NOKY HealthcareComment on above:Expected: 09/21/2024 (Approximate), Expires: 09/21/2025Start: 09-21-2024 End: 25-12-2134Kjkvrwmyzygfenef (T3) Free [Mass/volume] in Serum or PlasmaT3, free Lab Routine Weight gain Expected: 09/21/2024 (Approximate), Expires: 09/21/2025NOKY HealthcareComment on above:Expected: 09/21/2024 (Approximate), Expires: 09/21/2025Start: 09-21-2024 End: 22-06-4227Fgrqgpo encounter /23/2025 10:00 AM EDT Office Visit [facility] [address] [place] [address] Barby Arzate MD [address] [place] [address] ArrivedNOBOONE HOSPITAL CENTER ENDOCRINOLOGYComment on above:Arrived Start: 70-71-4205OSZ Vaccines (1 - 3-dose SCDM series)HPV Vaccines (1 - 3-dose SCDM series)NOM HealthcareStart: 45-72-8554Yyxtgalru B Vaccines (1 of 3 - 19+ 3-dose series)Hepatitis B Vaccines (1 of 3 - 19+ 3-dose series)[facility] Start: 36-12-4967Iqkunij of varicella vaccinationVaricella Vaccines (1 of 2 - 13+ 2-dose series)NOM HealthcareStart: 21-08-9880IMgH/Tdap/Td Vaccines (1 - Tdap)DTaP/Tdap/Td Vaccines (1 - Tdap)NOM HealthcareStart: 79-54-6133CBH Vaccines (1 of 1 - Standard series)MMR Vaccines (1 of 1 - Standard series)[facility] Immunizations Immunization DateImmunizationNotesCare TttsstpeTmsqidie29-02-9181RDTP-RuN-1 (COVID-19) mRNA BNT-162b2 vaxMichael NILL General Surgery Hgfjqyen55-57-0064VILT-XyW-7 (COVID-19) mRNA BNT-162b2 vaxMichael NILL General Surgery BellevueNEGATED: Highlighted row has not occurred!95-62-9268vwycacqvj virus vaccine, unspecified formulationMichael NILL [phone]-FovxoKettering Health Behavioral [facility] [place] Payers DatePayer CategoryPayerPolicy [id number] Health InsuranceAMBETTER LINDA ..[id number] .1.[id number] ..1.852755.3.57[id number] .1.469978.3.57[id number] 2..1.391506.3.57[id number] .1.102739.3.57[id number] 2.16.840.1.204341.3.57[id number] 2.16.840.1.673197.3.57[id number] 2.16.840.1.121443.3.57[id number] 2.16.840.1.763885.3.57[id number] 2.16.840.1.789819.3.57[id number] 2.16.840.1.575993.3.57[id number] 2.16.840.1.655325.3.579.2.727 Social History DateTypeDetailFacilityStart: 09-26-2022 End: 82-97-1823Lmeglie smoking statusNever smoked tobacco (finding)[facility]tart: 36-60-6160Enqralb smoking status NeverFishOchsner St Anne General Hospitaltart: 2023 End: 31-19-5376Uqo Assigned At BirthFemalSelect Medical Specialty Hospital - Cleveland-Fairhilltart: 88-06-6621Rynmihf use and exposureSmokeless tobacco non-userNOMS Healthcare Start: 74-94-1068Tqtyffwuo beverage intakeCurrent drinker of alcohol (finding) NOMS HealthcareStart: 2023 End: 09-09-2470Iypxicj of Social functionNOMS HealthcareStart: 31-93-0511Hok assigned at birthNot on fileNOMS HealthcareStart: 33-77-1532Bosfzifij beverage intakeLifetime non-drinker (finding)[facility] Functional Status SvjiTvvpmgzyusUlnqzlTyzkuxet86-01-6420Oowtnvxkbw StatusN/AFOhioHealth [facility] Clinical Notes 04-28-2023 to 04-12-2025 Note Date & AnmdMlmyHmpwzeki86-40-4324 History of Present illness Narrative* Po Patterson, PT - 04/12/2025 8:00 AM EST Images from the original note were not included. Franklin Leiva [id number] 04/11/25 Subjective: Phone consult 03/21 34 yof sent [...] tylenol but not taking preventative migraine med 4thd session Better only one episode Mg at night (Issue migraine material next session if necessary) 5th Feeling better Advance neuro appt in May Objective/Examination: Vision/Ocular: Head alignment: Negative head tilt [...] with video goggles: Negative Therapeutic Intervention: reEvaluation see flow sheet Neuro frank manual therapy pewr flow sheet 40 min Assessment: Suspected Therapy Diagnosis: Cervical Mediated Dizziness [...] AIB-VAM Director Vestibular Rehabilitation documented in this encounterOzarks Community HospitalDgmnfrrwcr63-06-8914 History of Present illness Narrative* Po Patterson, PT - 04/05/2025 7:00 AM EST Images from the original note were not included. Franklin Leiva [id number] 04/04/25 Subjective: Phone consult 03/21 34 yof [...] AIB-VAM Director Vestibular Rehabilitation documented in this encounterOzarks Community HospitalIcfuvrgllx79-71-2384 History of Present illness Narrative* Po Patterson, PT - 03/29/2025 7:00 AM EDT Images from the original note were not included. Franklin Leiva [id number] 03/28/25 Subjective: Phone consult 03/21 34 yof [...] AIB-VAM Director Vestibular Rehabilitation documented in this encounterOzarks Community HospitalQqwhbvxcvn69-69-7587 History of Present illness Narrative* Po Patterson, PT - 03/22/2025 7:00 AM EDT Franklin Leiva [id number] 03/21/25 Subjective: Phone consult 03/21 34 yof [...] restore balance and pass sop tests and stoo low fall risk Plan: Cervical manual therapy, vestibular rehabilitation, vision therapy, aerobics/heat Frequency/Duration: Once every other week Potential: Good I hereby deem this POC medically necessary. Please sign below. Po Patterson, MartyPT, OCS, COMT, AIB-VAM Director Vestibular Rehabilitation documented in this encounterOzarks Community HospitalDqefdxsfyt10-04-3309 History of Present illness Narrative* Barby Arzate MD - 12/28/2024 9:40 AM EDT Franklin Leiva is a 34 y.o. female No ref. provider found presents with chief complaint of Thyroid Problem and Follow-up (LAB) HPI: IM : 11/2024 Follow-up visit 12/28/2024, she is off steroids by her extension service supervisor, currently all thyroid lab within normal limits on 11/2024, including antibodies negative, and she is still worried about her weight. HPI: 08/2024 New patient came by herself due to weight gain she has history of GAGE positive, started on high dose dexamethasone 2 mg 4 times a day and then went to extension service supervisor who cut the dose to 1 [...] (BMI) of 40.0 to 44.9 in adult ([facility]) Diet and exercise reviewed with the patient Follow up in about 4 months (around 04/30/2025). 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 documented in this encounterOzarks Community HospitalWatuatbvvs08-17-4494 NoteCardiology Clinic Note HPI: Franklin Leiva is [...] is complete Briseida Carrasquillo MD Interventional Cardiology [facility]12-03-2024 NoteCardiology Clinic Note HPI: Franklin Leiva is [...] or concerns. Briseida Carrasquillo MD Interventional Cardiology [facility]05-31-2023 NoteOPERATIVE NOTE OPERATION DATE: 10/29/2022 PREOPERATIVE DIAGNOSIS: Symptomatic cholelithiasis. POSTOPERATIVE DIAGNOSIS: Symptomatic cholelithiasis with chronic cholecystitis. PROCEDURE: Laparoscopic cholecystectomy. SURGEON: Po Menchaca M.D. OIL PROSPECTING OBSERVER: NAYA Denise ANESTHESIA: General endotracheal. ESTIMATED BLOOD [...] neck of gallbladder. CC: Patient's family physician.[facility] CenterJsukhpub24-91-9012 NoteOPERATIVE NOTE OPERATION DATE: 10/01/2022 PREOPERATIVE DIAGNOSIS: [...] in good condition. CC: Nguyen Zamorano M.D.[facility] Medical CenterLxxiorxp34-50-6474 NoteChief Complaint consultation for abdominal pain HPI Staff 31 year old female presents on consultation for Dr. Zamorano for abdominal pain. Presented to [place] ED 09/08 with RUQ and mid back [...] ate; also frequent loose stools; seen in [place] [facility] 09/08/22; normal labs, abd/pelvic ct scan [...] Level MRI Cholangiogram Panc (more content not included)...[facility] Comment on above:Result Comment: Electronically Signed By: NIKOLAI HENRY, Po Moore\Date and Time Signed: 09/26/22 13:27 [id number] Evaluation + Plan note Diagnostic Tests Pending * CBC w/ Auto Diff 09/26/22 * Basic Metabolic Panel 09/26/22 * Hepatic Function Panel 09/26/22 * Lipase Level 09/26/22 [facility] [place] Evaluation note* Diagnosis Weight gain- Primary Other [...] (BMI) of 40.0 to 44.9 in adult ([facility]) documented in this encounter [facility] HealthcareEvaluation note* Diagnosis Cervicalgia- Primary Intractable migraine without status migrainosus, unspecified migraine type Balance disorder documented in this encounter [facility] HealthcareEvaluation note* Diagnosis Cervicalgia- Primary Balance disorder documented in this encounter [facility] HealthcareEvaluation note* Diagnosis Cervicalgia- Primary Intractable migraine without status migrainosus, unspecified migraine type documented in this encounter [facility] HealthcareEvaluation note* Diagnosis Cervicalgia- Primary Intractable migraine without status migrainosus, unspecified migraine type Balance disorder documented in this encounter [facility] HealthcareHospital course Narrative No data available for this section [facility] [place] Hospital Discharge instructions No data available for this section [facility] [place] Progress note No data available for this section [facility] [place] Reason for visit Narrative* Rehabilitation - Outpatient (Routine) - Pending ReviewSpecialtyDiagnoses / ProceduresReferred By Contact Referred To ContactCorewell Health Greenville Hospitalsical Therapy Diagnoses Dizziness and giddiness Procedures [place] PHYSICAL THERAPY EVALUATION LOW COMPLEX 20 MINS Nguyen Zamorano MD [address] [place] [address] Phone: tel: fax: Po Patterson, PT [address] [place] [address] Phone: tel: fax: Referral IDStatusReasonStart DateExpiration DateVisits RequestedVisits [id number] Review Consult and Treat NOMS HealthcareReason for visit Narrative* Rehabilitation - Outpatient (Routine) - AuthorizedSpecialtyDiagnoses / ProceduresReferred By ContactReferred To ContactPhysical Therapy Diagnoses Dizziness and giddiness Procedures [place] PHYSICAL THERAPY EVALUATION LOW COMPLEX 20 MINS Nugyen Zamorano MD [address] [place] [address] Phone: tel:[phone] fax: Po Patterson, PT [address] [place] [address] Phone: tel: fax: Referral IDStatusReasonStart DateExpiration DateVisits RequestedVisits [id number] Consult and Treat / [facility] Healthcare Summary Purpose Family History No Family History Records FoundNo Family History Records FoundNo Family History Records FoundNo Family History Records Found Advance Directives No Advanced Directives Records FoundNo Advanced Directives Records FoundNo Advanced Directives Records FoundNo Advanced Directives Records Found Additional Source Comments Patient Care team informatio n (unrecognized section and content) Team MemberRelationshipSpecialtyStart DateEnd Nguyen Zamorano MD [address] [place] [address] PCP - GeneralFamily Medicine10/20/22Team MemberRelationshipSpecialtyStart DateEnd [facility] Nguyen Zamorano MD [address] [place] [facility] [place] [address] PCP - GeneralFamily Medicine10/20/22Team MemberRelationshipSpecialtyStart DateEnd [facility] Nguyen Zamorano MD [address] [place] [facility] [address] PCP - GeneralFamily Medicine11/09/24 Barbie Dang DO [address] [place] [phone] Referring PhysicianObstetrics and Gynecology11/09/24Te MemberRelationship SpecialtyStart DateEnd [facility] Nguyen Zamorano MD [address] [place] [facility] [place] [address] PCP - GeneralFamily Medicine11/09/24 Barbie Dang DO [address] [place] [phone] Referring PhysicianObstetrics and Gynecology11/09/24Team MemberRelationship SpecialtyStart DateEnd [facility] Nguyen Zamorano MD [address] [place] [facility] [place] [address] PCP - GeneralFamily Medicine11/09/24 Barbie Dang DO [address] [place] [phone] Referring PhysicianObstetrics and Gynecology11/09/24Team MemberRelationship SpecialtyStart DateEnd Date Nguyen Zamorano MD [address] [place] [facility] [place] [address] PCP - GeneralFamily Medicine11/09/24 Barbie Dang DO [address] [address] Referring PhysicianObstetrics and Gynecology11/09/24Te MemberRelationship SpecialtyStart DateEnd [facility] Nguyen Zamorano MD [address] [place] [facility] [place] [address] PCP - GeneralFamily Medicine11/09/24 Barbie Dang DO [address] [place] [phone] Referring PhysicianObstetrics and Gynecology11/09/24Te MemberRelationship SpecialtyStart DateEnd Date Nguyen Zamorano MD [address] [place] [facility] [place] [address] PCP - GeneralFamily Medicine11/09/24 Barbie Dang DO [address] [address] Referring PhysicianObstetrics and Gynecology11/09/24Te MemberRelationship SpecialtyStart DateEnd Date Nguyen Zamorano MD [address] [place] [facility] [place] [address] PCP - GeneralFamily Medicine11/09/24 Barbie Dang DO [address] [address] Referring PhysicianObstetrics and Gynecology11/09/24Team MemberRelationship SpecialtyStart DateEnd Date Nguyen Zamorano MD [address] [place] [address] PCP - [facility] Medicine11/09/24 Barbie Dang DO [address] [address] Referring PhysicianObstetrics and Gynecology11/09/24Team MemberRelationship SpecialtyStart DateEnd Date Nguyen Zamorano MD [address] [place] [address] PCP - [facility] Medicine11/09/24 Barbie Dang DO [address] [address] Referring PhysicianObstetrics and Gynecology11/09/24 INFORMATION SOURCE (unrecogn ized section and content) DATE CREATED AUTHOR 11/08/2022 [facility] DATE CREATED AUTHOR AUTHOR'S ORGANIZ ATION 12/01/2022 [facility] DATE CREATED AUTHOR AUTHOR'S ORGANIZ ATION 07/11/2024 [facility] DATE CREATED AUTHOR AUTHOR'S ORGANIZ ATION 01/28/2025 [facility] Reason for Visit (unrecogniz ed section and content) ReasonCommentsHORMONESNEW NO REFERRAL LABS ON PHONEReasonCommentsGynecologic ExamPatient here for a yearly. Denies problems. Patient having periods every month lasting 5 days with normal bleeding and no cramping LMP 10/09/24 Never been sexually active.ReasonCommentsThyroid ProblemFollow-upLAB FOR [...] BE BASED ON THE PRIMARY CLINICAL RECORDS. [employer] [facility]. provides no warranty or guarantee of the accuracy or completeness of information in this document.
[2025-04-19 10:37] LABS: Alanine Aminotransferase 74 U/L (14-59); Albumin Globulin Ratio 1.1; Albumin Level 3.7 g/dL (3.4-5.0); Alkaline Phosphatase 74 U/L (46-116); Anion Gap 9.2; Aspartate Amino Transferase 32 U/L (15-37); Blood Urea Nitrogen 8.0 mg/dL (7.0-18.0); Calcium 9.0 mg/dL (8.5-10.1); Carbon Dioxide 28.7 mmol/L (21.0-32.0); Chloride 108 mmol/L (98-107); Estimated GFR (African America >60 (>=60 mL/min/1.73m^2); Estimated GFR (Non-African Ame >60 (>=60 mL/min/1.73m^2); Globulin 3.3 g/dL; Glucose 95 mg/dL (74-106); Potassium 3.9 mmol/L (3.5-5.1); Sodium 142 mmol/L (136-145); Total Protein 7.0 g/dL (6.4-8.2)
== END 2025-04-19 09:36 | disposition home or self-care (01) ==
LOC: LAB 09:39
PROVIDERS: PCP Family Medicine; Visit Provider Family Medicine
DX: M25.50 Pain in unspecified joint (principal)
CPT/HCPCS: 36415; 80053

== ENCOUNTER 2025-05-10 10:22 | Outpatient (OUT) | payer OTHER, SELFPAY ==
[2025-05-10 11:22] LABS: Hematocrit 39.3 % (36.0-48.0); Hemoglobin 13.0 g/dL (12.0-16.0); Immature Granulocytes Abs Auto 0.01 10^3/uL (0.00-0.03); Immature Granulocytes Pct Auto 0.2 % (0.0-0.5); Lymphocytes Absolute Auto 1.6 10^3/uL (1.2-3.8); Mean Corpuscular HGB Conc 33.1 g/dL (29.9-35.2); Mean Corpuscular Hemoglobin 28.1 pg (26.7-34.0); Mean Corpuscular Volume 84.9 fL (81.0-99.0); Platelet Count 280 10^3/uL (150-450); Red Blood Count 4.63 10^6/uL (4.20-5.40); White Blood Count 5.9 10^3/uL (4.0-11.0)
[2025-05-10 11:27] LABS: Anion Gap 10.4; Blood Urea Nitrogen 8.0 mg/dL (7.0-18.0); Carbon Dioxide 28.7 mmol/L (21.0-32.0); Chloride 104 mmol/L (98-107); Estimated GFR (African America >60 (>=60 mL/min/1.73m^2); Glucose 97 mg/dL (74-106); Potassium 4.1 mmol/L (3.5-5.1); Sodium 139 mmol/L (136-145)
[2025-05-10 11:28] LABS: Alanine Aminotransferase 74 U/L (14-59); Albumin Globulin Ratio 1.1; Albumin Level 3.8 g/dL (3.4-5.0); Alkaline Phosphatase 83 U/L (46-116); Aspartate Amino Transferase 28 U/L (15-37); Calcium 9.1 mg/dL (8.5-10.1); Cholesterol 165 mg/dL (<=200); Estimated GFR (Non-African Ame >60 (>=60 mL/min/1.73m^2); Free T3 2.95 pg/mL (2.18-3.98); Globulin 3.6 g/dL; HDL Cholesterol 42 mg/dL (40-60); NT Pro B Type Natriuretic Pept 28.0 pg/mL (<=450.0); Thyroid Stimulating Hormone 1.366 uIU/mL (0.358-3.740); Total Protein 7.4 g/dL (6.4-8.2); Triglycerides 72 mg/dL (<=150); VLDL CHOLESTEROL 14.4 mg/dL
[2025-05-10 11:49] LABS: Iron 82.0 ug/dL (50.0-170.0)
== END 2025-05-10 10:23 | disposition home or self-care (01) ==
LOC: LAB 10:27
PROVIDERS: PCP Family Medicine; Visit Provider Family Medicine
DX: Z00.00 Encounter for general adult medical examination without abnormal findings (principal); R07.9 Chest pain, unspecified
CPT/HCPCS: 36415; 80053; 80061; 83036; 83525; 83540; 83880; 84436; 84443; 84481; 84484; 85025